=== PATIENT | male | born 1990 | race African-American/Black ===

== ENCOUNTER 2019-03-08 09:16 | Inpatient (IN) | payer OTHER ==
[2019-03-08] MEDS ORDERED: NACL 0.9% 1000 ML 1,000 ML IV ONE ×4 (12:18→23:10)
[2019-03-08] MEDS ORDERED: PEPCID IV ONE (12:18)
[2019-03-08] MEDS ORDERED: ZOFRAN IV ONE (12:18)
[2019-03-08] MEDS ORDERED: PROTONIX IV ONE (12:25)
[2019-03-08] MEDS ORDERED: VITAMIN B-1 100 MG, FOLVITE 1 MG, INFUVITE 10 ML in NACL 0.9% 1000 ML 1,000 ML IV ONE (12:26)
[2019-03-08] MEDS ORDERED: MAGNESIUM SULFATE 2GM/50ML 2 GM/50 ML BAG IV ONE (12:27)
--- NOTE | 2019-03-08 12:39 | Emergency Department Report ---
HPI - General Chief Complaint: Alcohol Time Seen by Provider: 03/08/19 12:17 - HPI HPI: Room 5 The patient is a 28-year-old male presenting with chief complaint of hematemesis. Patient has history of alcoholism and states he drinks approximately 3 points daily. The patient states he last consumed last night. Patient developed hematemesis this morning dark-colored blood. Patient also admits to melena for several months. Patient states he feels "woozy." Location: [See above] Duration: [See above] Quality: [See above] Severity: [See above] Timing: [See above] Context: [See above] Modifying factors: [See above] Associated signs and symptoms: [see above] ED Past Medical Hx - Past Medical History Previous Medical History?: No - Surgical History Past Surgical History?: No - Family History Family history: no significant - Social History Smoking Status: Current Every Day Smoker (1/2 pack per day) Substance Use Type: None (denies illicit drug use), Alcohol (3 pints daily) ED Review of Systems ROS: Stated complaint: VOMIT BLOOD/WEAK/FATIGUE Other details as noted in HPI Constitutional: no symptoms reported Eyes: denies: eye pain ENT: denies: throat pain Respiratory: no symptoms reported Cardiovascular: denies: chest pain Endocrine: no symptoms reported Gastrointestinal: nausea, vomiting, hematemesis, melena Genitourinary: denies: dysuria Musculoskeletal: denies: back pain Neurological: denies: headache Physical Exam - Physical Exam Vital Signs: Vital Signs 03/08/19 03/08/19 09:43 12:03 Temperature 98.6 F Pulse Rate 116 H Respiratory 16 16 Rate Blood Pressure 117/64 O2 Sat by Pulse 100 Oximetry Physical Exam: GENERAL: The patient is well-developed well-nourished male lying on stretcher appearing to be in mild discomfort. [] HEENT: Normocephalic. Atraumatic. Extraocular motions are intact. Patient has moist mucous membranes. NECK: Supple. Trachea midline CHEST/LUNGS: Clear to auscultation. There is no respiratory distress noted. HEART/CARDIOVASCULAR: Regular. There is no tachycardia. There is no gallop rub or murmur. ABDOMEN: Abdomen is soft, nontender. Patient has normal bowel sounds. There is no abdominal distention. SKIN: There is no rash. There is no edema. There is no diaphoresis. NEURO: The patient is awake, alert, and oriented. The patient is cooperative. The patient has normal speech MUSCULOSKELETAL: There is no evidence of acute injury. ED Course Vital Signs 03/08/19 03/08/19 09:43 12:03 Temperature 98.6 F Pulse Rate 116 H Respiratory 16 16 Rate Blood Pressure 117/64 O2 Sat by Pulse 100 Oximetry - Consultations Consultation #1: 03/08/19 13:[address] Tadeo S[place] ED Medical Decision Making - Lab Data Result diagrams: 03/08/19 12:59 03/08/19 13:14 Laboratory Tests 03/08/19 03/08/19 03/08/19 09:34 12:57 12:59 WBC 6.1 RBC 3.14 L Hgb 11.3 L Hct 33.3 L MCV 106 H MCH 36 H MCHC 34 RDW 18.5 H Plt Count 61 L PT 16.9 H INR 1.41 H APTT 30.9 Sodium Potassium Chloride Carbon Dioxide Anion Gap BUN Creatinine Estimated GFR BUN/Creatinine Ratio Glucose Calcium Total Bilirubin AST ALT Alkaline Phosphatase Total Protein Albumin Albumin/Globulin Ratio Plasma/Serum Alcohol 0.34 H Blood Type Antibody Screen 03/08/19 03/08/19 13:12 13:14 WBC RBC Hgb Hct MCV MCH MCHC RDW Plt Count PT INR APTT Sodium 139 Potassium 4.4 Chloride 89.4 L Carbon Dioxide 8 L* Anion Gap 46 BUN 13 Creatinine 1.2 Estimated GFR > 60 BUN/Creatinine Ratio 11 Glucose 74 L Calcium 8.7 Total Bilirubin 4.70 H AST 611 H ALT 153 H Alkaline Phosphatase 82 Total Protein 7.6 Albumin 3.9 Albumin/Globulin Ratio 1.1 Plasma/Serum Alcohol Blood Type AB POSITIVE Antibody Screen Negative - Differential Diagnosis upper GI bleed, alcoholic ketoacidosis Critical care attestation.: If time is entered above; I have spent that time in minutes in the direct care of this critically ill patient, excluding procedure time. ED Disposition Clinical Impression: Upper GI bleed, Alcoholism Disposition: OP ADMIT IP TO THIS HOSP Is pt being admited?: Yes Does the pt Need Aspirin: No Condition: Fair Time of Disposition: 14:13 (hospitalist paged (Dr Kearns))
[2019-03-08 13:23] LABS: Hematocrit 33.3 % (35.5-45.6); Hemoglobin 11.3 gm/dl (11.8-15.2); Mean Corpuscular HGB Conc 34 % (32-34); Mean Corpuscular Volume 106 fl (84-94); Red Blood Count 3.14 M/mm3 (3.65-5.03); Red Cell Distribution Width 18.5 % (13.2-15.2)
[2019-03-08 13:24] LABS: INR 1.41 (0.87-1.13); Partial Thromboplastin Time 30.9 Sec. (24.2-36.6)
[2019-03-08 13:44] LABS: Albumin 3.9 g/dL (3.9-5); BUN/Creatinine Ratio 11; Blood Urea Nitrogen 13 mg/dL (9-20); Calcium 8.7 mg/dL (8.4-10.2); Hemolysis Index 107
[2019-03-08 13:48] LABS: Alanine Aminotransferase 153 units/L (7-56)
[2019-03-08] MEDS: PROTONIX 80 MG in NACL 0.9% 100 ML IV SCH ×2 (13:49→14:30)
[2019-03-08 13:56] LABS: Platelet Count 61 K/mm3 (140-440)
[2019-03-08 14:11] LABS: Basophils % (Manual) 0 % (0.0-1.8); Eosinophils % (Manual) 0 % (0.0-4.3); Platelet Estimate Appears Decreased; Total Cells Counted 100
[2019-03-08 14:12] LABS: Anisocytosis 2+
[2019-03-08] MEDS ORDERED: ROCEPHIN/NS 1 GM/50 ML 1 GM/50 ML BAG IV ONE ×2 (14:36→15:30)
[2019-03-08 14:37] LABS: Bilirubin,Urine SM (Negative); Blood,Urine SM (Negative); Color,Urine Amber (Yellow); Hyaline Casts,Urine 25 /LPF; Mucus,Urine 3+ /HPF
[2019-03-08 14:40] LABS: Protein,Urine >500 mg/dL (Negative)
[2019-03-08 14:41] LABS: Ictotest,Urine Positive (Negative)
[2019-03-08] MEDS ORDERED: SODIUM CHLORIDE FLUSH SYRINGE 10 ML IV PRN (14:56)
[2019-03-08] MEDS ORDERED: PROVENTIL IH PRN (14:56)
--- NOTE | 2019-03-08 14:58 | History and Physical Report ---
History of Present Illness Chief complaint: Im coughing up blood History of present illness: 28 YO Male with Nicotine Dependence, ETOH Dependence, Cirrhosis presents to ED for evaluation. Pt states that he has experienced multiple episodes of coughing up blood over the past 1 day. Pt also acknowledges dark colored stool and feeling weak and "woozy. Pt transported to [facility] via private vehicle. Pt seen and evaluated in ED and found to have UGI bleed, ETOH Dependence with Intoxication, Acidosis, and Cirrhosis. Pt admitted to [facility] and initiated on Octreotide drip and PPI therapy. GI consulted in ED. Pt denies fever, chills, CP, Palpitations, Trauma, Syncope, ingestion of food/water from new or different sources. No prior admission for review. No medication listed at time of admission for reconciliation. Past History Past Medical History: other (Cirrhosis) Past Surgical History: Other (cirrhosis) Social history: smoking, alcohol abuse Family history: no significant family history (Unable to obtain) Medications and Allergies Allergies Allergy/AdvReac Type Severity Reaction Status Date / Time No Known Allergies Allergy Verified 03/08/19 12:31 Active Meds: Active Medications Albuterol (Proventil) 2.5 mg IH Q3HRT PRN PRN Reason: Shortness Of Breath Thiamine HCl 100 mg/ Folic Acid 1 mg/ Multivitamins/Minerals 10 ml/ Sodium Chloride 1,011.2 mls @ 250 mls/hr IV ONCE ONE Stop: 03/08/19 16:28 Last Admin: 03/08/19 13:07 Dose: 250 mls/hr Documented by: Pantoprazole Sodium 80 mg/ (Sodium Chloride) 100 mls @ 10 mls/hr IV DIRECT CHARLIE Last Admin: 03/08/19 14:30 Dose: 8 mg/hr, 10 mls/hr Documented by: Dextrose/Sodium Chloride (D5ns) 1,000 mls @ 150 mls/hr IV DIRECT CHARLIE Octreotide Acetate 500 mcg/ (Sodium Chloride) 101 mls @ 10.1 mls/hr IV TITR ONE; Protocol Stop: 03/09/19 00:59 Ceftriaxone Sodium (Rocephin/Ns 1 Gm/50 Ml) 1 gm in 50 mls @ 100 mls/hr IV ONCE ONE; Protocol Stop: 03/08/19 15:05 Octreotide Acetate (Sandostatin) 50 mcg IV ONCE ONE Stop: 03/08/19 15:01 Sodium Chloride (Sodium Chloride Flush Syringe 10 Ml) 10 ml IV BID CHARLIE Sodium Chloride (Sodium Chloride Flush Syringe 10 Ml) 10 ml IV PRN PRN PRN Reason: LINE FLUSH Review of Systems Constitutional: no weight loss, no weight gain, no fever, no chills Ears, nose, mouth and throat: no ear pain, no ear discharge, no decreased hearing, no nose pain, no nasal congestion Cardiovascular: no chest pain, no orthopnea, no palpitations, no rapid/irregular heart beat, no edema, no syncope Respiratory: no cough, no cough with sputum, no excessive sputum Gastrointestinal: hematemesis, BRBPR, melena, no abdominal pain, no nausea, no vomiting, no diarrhea, no constipation, no early satiety Genitourinary Male: no hematuria, no flank pain, no discharge, no urinary frequency, no urinary hesitancy Rectal: no pain, no incontinence, no bleeding Musculoskeletal: no neck stiffness, no neck pain, no shooting arm pain, no arm numbness/tingling, no low back pain, no shooting leg pain Integumentary: no rash, no pruritis, no redness, no sores, no wounds Neurological: no transient paralysis, no paralysis, no weakness, no parathesias, no numbness, no tingling, no syncope Psychiatric: no anxiety, no memory loss, no change in sleep habits, no sleep disturbances, no suicidal ideation, no disorientation Endocrine: no cold intolerance, no heat intolerance, no polyphagia, no excessive thirst, no polydipsia, no nocturia, no excessive sweating Hematologic/Lymphatic: no easy bruising, no easy bleeding, no lymphadenopathy, no lymphedema Allergic/Immunologic: no urticaria, no allergic rhinitis, no wheezing, no persistent infections, no anaphylaxis Exam - Constitutional Vitals: Temp Pulse Resp BP Pulse Ox 98.6 F 119 H 23 104/56 100 03/08/19 09:43 03/08/19 13:08 03/08/19 13:08 03/08/19 13:08 03/08/19 13:08 General appearance: Present: mild distress, disheveled, malodorous - EENT Eyes: Present: PERRL, EOM intact, scleral icterus ENT: hearing intact, clear oral mucosa - Neck Neck: Present: supple, normal ROM, masses or JVD - Respiratory Respiratory effort: normal Respiratory: bilateral: CTA - Cardiovascular Heart Sounds: Present: S1 & S2. Absent: rub, click - Extremities Extremities: pulses symmetrical, No edema Peripheral Pulses: within normal limits - Abdominal General gastrointestinal: Present: soft, non-tender, non-distended, normal bowel sounds Male genitourinary: Present: normal - Integumentary Integumentary: Present: clear, warm, dry - Musculoskeletal Musculoskeletal: gait normal, strength equal bilaterally - Psychiatric Psychiatric: appropriate mood/affect, intact judgment & insight - Neurologic Neurologic: CNII-XII intact, moves all extremities Results - Labs CBC & Chem 7: 03/08/19 12:59 03/08/19 13:14 Labs: Abnormal lab results 03/08/19 03/08/19 03/08/19 Range/Units 09:34 12:57 12:59 RBC 3.14 L (3.65-5.03) M/mm3 Hgb 11.3 L (11.8-15.2) gm/dl Hct 33.3 L (35.5-45.6) % MCV 106 H (84-94) fl MCH 36 H (28-32) pg RDW 18.5 H (13.2-15.2) % Plt Count 61 L (140-440) K/mm3 Lymphocytes % (Manual) 50.0 H (13.4-35.0) % PT 16.9 H (12.2-14.9) Sec. INR 1.41 H (0.87-1.13) Chloride (98-107) mmol/L Carbon Dioxide (22-30) mmol/L Glucose (75-100) mg/dL Total Bilirubin (0.1-1.2) mg/dL AST (5-40) units/L ALT (7-56) units/L Urine WBC (Auto) (0.0-6.0) /HPF Plasma/Serum Alcohol 0.34 H (0-0.07) % 03/08/19 03/08/19 Range/Units 13:14 14:21 RBC (3.65-5.03) M/mm3 Hgb (11.8-15.2) gm/dl Hct (35.5-45.6) % MCV (84-94) fl MCH (28-32) pg RDW (13.2-15.2) % Plt Count (140-440) K/mm3 Lymphocytes % (Manual) (13.4-35.0) % PT (12.2-14.9) Sec. INR (0.87-1.13) Chloride 89.4 L (98-107) mmol/L Carbon Dioxide 8 L* (22-30) mmol/L Glucose 74 L (75-100) mg/dL Total Bilirubin 4.70 H (0.1-1.2) mg/dL AST 611 H (5-40) units/L ALT 153 H (7-56) units/L Urine WBC (Auto) 18.0 H (0.0-6.0) /HPF Plasma/Serum Alcohol (0-0.07) % Assessment and Plan - Patient Problems (1) Upper GI bleed Current Visit: Yes Status: Acute Plan to address problem: Admit to IMCU, PPI therapy, Octreotide drip, serial CBC, Pending Endoscopy as per GI team. Notify GI if Hgb drops by more that 1.5 grams. (2) EtOH dependence Current Visit: Yes Status: Acute Qualifiers: Substance use status: with intoxication Plan to address problem: CIWA protocol, Banana bag, supportive care. (3) Cirrhosis Current Visit: Yes Status: Acute Qualifiers: Hepatic cirrhosis type: alcoholic cirrhosis Plan to address problem: GI consulted, supportive care, (4) Acidosis Current Visit: Yes Status: Acute Plan to address problem: IV bicarbonate therapy, supportive care. (5) Nicotine dependence unspecified, with withdrawal Current Visit: Yes Status: Acute Qualifiers: Nicotine product type: cigarettes Qualified Code(s): F17.213 - Nicotine dependence, cigarettes, with withdrawal Plan to address problem: Smoking cessation counseling, supportive care. +15min (6) Behavioral change Current Visit: Yes Status: Acute Plan to address problem: ETOH cessation, +15min, Outpatient F/U with AA at discharge. (7) DVT prophylaxis Current Visit: Yes Status: Acute Plan to address problem: SCD to BLE while in bed, hold anticoagulation due to liver dysfunction
[2019-03-08] MEDS ORDERED: D5NS 1,000 ML IV SCH (15:00)
[2019-03-08] MEDS ORDERED: SandoSTATIN 500 MCG in NACL 0.9% 100 ML IV ONE (15:00)
--- NOTE | 2019-03-08 16:21 | Ultrasound Report ---
Abdominal ultrasound limited INDICATION: Right upper quadrant pain. GI bleed. FINDINGS: The liver is enlarged and diffusely heterogeneous. The gallbladder contains several gallsto fam. The right kidney is unremarkable. Small free fluid noted. IMPRESSION: 1. Severely heterogeneous echogenicity of the liver which is suspicious for cirrhosis. 2. Cholelithiasis. Signer Name: Lui Medrano MD Signed: 03/08/2019 4:16 PM Workstation Name: [id number]
--- NOTE | 2019-03-08 17:42 | Gastroenterology Consultation ---
History of Present Illness - Reason for Consult Consult date: 03/08/19 gi bleed Requesting physician: JEANNINE KATE - History of Present Illness This is a 28 yo male with pmh of alcohol abuse presenting to the ED for an episode of hematemesis last night and melena intermittently x 1 week. He had another episode of hematemesis in the ED but no additional episode since then. He denies abdominal pain. He is drowsy and history is limited. Reports last drink with alcohol this morning and last night. He recently moved from [place] in January. He was admitted at a hospital in [place] in September last year and was told that he had liver disease. No follow up since then. He had a fall last night and had large bruising on his back. Medication list reviewed Past History Past Medical History: liver disease Past Surgical History: No surgical history Social history: lives with family, alcohol abuse Medications and Allergies Allergies Allergy/AdvReac Type Severity Reaction Status Date / Time No Known Allergies Allergy Verified 03/08/19 12:31 Active Meds: Active Medications Albuterol (Proventil) 2.5 mg IH Q3HRT PRN PRN Reason: Shortness Of Breath Pantoprazole Sodium 80 mg/ (Sodium Chloride) 100 mls @ 10 mls/hr IV DIRECT CHARLIE Last Admin: 03/08/19 14:30 Dose: 8 mg/hr, 10 mls/hr Documented by: Dextrose/Sodium Chloride (D5ns) 1,000 mls @ 150 mls/hr IV DIRECT CHARLIE Octreotide Acetate 500 mcg/ (Sodium Chloride) 101 mls @ 10.1 mls/hr IV TITR ONE; Protocol Stop: 03/09/19 00:59 Thiamine HCl 100 mg/ Folic Acid 1 mg/ Multivitamins/Minerals 10 ml/ Sodium Chloride 1,011.2 mls @ 250 mls/hr IV ONCE ONE Stop: 03/09/19 04:03 Lorazepam (Ativan) 2 mg IV Q1HR PRN PRN Reason: CIWA-Ar 8-15 Sodium Chloride (Sodium Chloride Flush Syringe 10 Ml) 10 ml IV BID CHARLIE Sodium Chloride (Sodium Chloride Flush Syringe 10 Ml) 10 ml IV PRN PRN PRN Reason: LINE FLUSH Review of Systems - Review of Systems Constitutional: weight loss, no weight gain Cardiovascular: no chest pain Gastrointestinal: nausea, vomiting, hematemesis, melena, no abdominal pain, no BRBPR Hematologic/Lymphatic: easy bruising Exam - Constitutional Vital Signs: Temp Pulse Resp BP Pulse Ox 98.6 F 115 H 20 131/51 100 03/08/19 09:43 03/08/19 16:42 03/08/19 16:42 03/08/19 16:42 03/08/19 16:42 General appearance: no acute distress, disheveled - EENT Eyes: EOM intact ENT: hearing intact - Respiratory Respiratory effort: normal Respiratory: bilateral: CTA - Cardiovascular Rhythm: regular Heart Sounds: Present: S1 & S2 - Gastrointestinal General gastrointestinal: Present: soft, non-tender, non-distended - Integumentary Integumentary: Present: clear, warm - Neurologic Neurological: alert and oriented x3 - Labs CBC & Chem 7: 03/08/19 12:59 03/08/19 13:14 Lab Results: Laboratory Results - last 24 hr 03/08/19 03/08/19 03/08/19 09:34 12:57 12:59 WBC 6.1 RBC 3.14 L Hgb 11.3 L Hct 33.3 L MCV 106 H MCH 36 H MCHC 34 RDW 18.5 H Plt Count 61 L Add Manual Diff Complete Total Counted 100 Seg Neuts % (Manual) 46.0 Band Neutrophils % 0 Lymphocytes % (Manual) 50.0 H Reactive Lymphs % (Man) 0 Monocytes % (Manual) 4.0 Eosinophils % (Manual) 0 Basophils % (Manual) 0 Metamyelocytes % 0 Myelocytes % 0 Promyelocytes % 0 Blast Cells % 0 Nucleated RBC % Not Reportable Seg Neutrophils # Man 2.8 Band Neutrophils # 0.0 Lymphocytes # (Manual) 3.1 Abs React Lymphs (Man) 0.0 Monocytes # (Manual) 0.2 Eosinophils # (Manual) 0.0 Basophils # (Manual) 0.0 Metamyelocytes # 0.0 Myelocytes # 0.0 Promyelocytes # 0.0 Blast Cells # 0.0 WBC Morphology Not Reportable Hypersegmented Neuts Not Reportable Hyposegmented Neuts Not Reportable Hypogranular Neuts Not Reportable Smudge Cells Not Reportable Toxic Granulation Not Reportable Toxic Vacuolation Not Reportable Dohle Bodies Not Reportable Pelger-Huet Anomaly Not Reportable Meng Rods Not Reportable Platelet Estimate Appears decreased Clumped Platelets Not Reportable Plt Clumps, EDTA Not Reportable Large Platelets Not Reportable Giant Platelets Not Reportable Platelet Satelliting Not Reportable Plt Morphology Comment Not Reportable RBC Morphology Not Reportable Dimorphic RBCs Not Reportable Polychromasia Not Reportable Hypochromasia Not Reportable Poikilocytosis Not Reportable Anisocytosis 2+ Microcytosis Not Reportable Macrocytosis Not Reportable Spherocytes Not Reportable Pappenheimer Bodies Not Reportable Sickle Cells Not Reportable Target Cells Not Reportable Tear Drop Cells Not Reportable Ovalocytes Not Reportable Helmet Cells Not Reportable Zaman-Ransom Bodies Not Reportable Falcon Rings Not Reportable Lyman Cells Not Reportable Bite Cells Not Reportable Crenated Cell Not Reportable Elliptocytes Not Reportable Acanthocytes (Spur) Not Reportable Rouleaux Not Reportable Hemoglobin C Crystals Not Reportable Schistocytes Not Reportable Malaria parasites Not Reportable Santy Bodies Not Reportable Hem Pathologist Commnt No PT 16.9 H INR 1.41 H APTT 30.9 Sodium Potassium Chloride Carbon Dioxide Anion Gap BUN Creatinine Estimated GFR BUN/Creatinine Ratio Glucose Calcium Total Bilirubin AST ALT Alkaline Phosphatase Total Protein Albumin Albumin/Globulin Ratio Urine Color Urine Turbidity Urine pH Ur Specific Sandy Urine Protein Urine Glucose (UA) Urine Ketones Urine Blood Urine Nitrite Urine Bilirubin Urine Ictotest Urine Urobilinogen Ur Leukocyte Esterase Urine WBC (Auto) Urine RBC (Auto) U Epithel Cells (Auto) Urine WBC Clumps Hyaline Casts Urine Mucus Plasma/Serum Alcohol 0.34 H Blood Type Antibody Screen 03/08/19 03/08/19 03/08/19 13:12 13:14 14:21 WBC RBC Hgb Hct MCV MCH MCHC RDW Plt Count Add Manual Diff Total Counted Seg Neuts % (Manual) Band Neutrophils % Lymphocytes % (Manual) Reactive Lymphs % (Man) Monocytes % (Manual) Eosinophils % (Manual) Basophils % (Manual) Metamyelocytes % Myelocytes % Promyelocytes % Blast Cells % Nucleated RBC % Seg Neutrophils # Man Band Neutrophils # Lymphocytes # (Manual) Abs React Lymphs (Man) Monocytes # (Manual) Eosinophils # (Manual) Basophils # (Manual) Metamyelocytes # Myelocytes # Promyelocytes # Blast Cells # WBC Morphology Hypersegmented Neuts Hyposegmented Neuts Hypogranular Neuts Smudge Cells Toxic Granulation Toxic Vacuolation Dohle Bodies Pelger-Huet Anomaly Meng Rods Platelet Estimate Clumped Platelets Plt Clumps, EDTA Large Platelets Giant Platelets Platelet Satelliting Plt Morphology Comment RBC Morphology Dimorphic RBCs Polychromasia Hypochromasia Poikilocytosis Anisocytosis Microcytosis Macrocytosis Spherocytes Pappenheimer Bodies Sickle Cells Target Cells Tear Drop Cells Ovalocytes Helmet Cells Zaman-Ransom Bodies Falcon Rings Nancie Cells Bite Cells Crenated Cell Elliptocytes Acanthocytes (Spur) Rouleaux Hemoglobin C Crystals Schistocytes Malaria parasites Santy Bodies Hem Pathologist Commnt PT INR APTT Sodium 139 Potassium 4.4 Chloride 89.4 L Carbon Dioxide 8 L* Anion Gap 46 BUN 13 Creatinine 1.2 Estimated GFR > 60 BUN/Creatinine Ratio 11 Glucose 74 L Calcium 8.7 Total Bilirubin 4.70 H AST 611 H ALT 153 H Alkaline Phosphatase 82 Total Protein 7.6 Albumin 3.9 Albumin/Globulin Ratio 1.1 Urine Color Rosa Urine Turbidity Cloudy Urine pH 5.0 Ur Specific Sandy 1.015 Urine Protein >500 Urine Glucose (UA) 50 Urine Ketones 20 Urine Blood Sm Urine Nitrite Neg Urine Bilirubin Sm Urine Ictotest Positive Urine Urobilinogen 4.0 Ur Leukocyte Esterase Neg Urine WBC (Auto) 18.0 H Urine RBC (Auto) 2.0 U Epithel Cells (Auto) 4.0 Urine WBC Clumps Few Hyaline Casts 25 Urine Mucus 3+ Plasma/Serum Alcohol Blood Type AB POSITIVE Antibody Screen Negative Assessment and Plan # Cirrhosis # Alcohol abuse # Upper GI bleed - concerning for variceal bleed, portal hypertensive gastropathy, vs PUD/gastritis. - h/o cirrhosis. - low platelets. elevated INR at 1.4 Rec - start on PPI IV, octreotide IV - start empiric antibiotics with ceftriaxone - monitor H/H closely. - monitor for signs of active bleeding. in case of any signs of bleeding, melena or hematemesis, please call GI immediately. - CT a/p pending. - will plan for EGD tomorrow. - keep NPO. - hold blood transfusion unless Hgb less than 7. - DO not give aggressive IV fluid.
--- NOTE | 2019-03-08 18:12 | Cat Scan Report ---
CT ABDOMEN AND PELVIS WITH IV CONTRAST INDICATION: GI bleed, r/o retroperitoneal bleed, abd pain. COMPARISON: None available. TECHNIQUE: Axial CT images were obtained through the abdomen and pelvis after 100 mL IV contrast. All CT scans a t this location are performed using CT dose reduction for ALARA by means of automated exposure contro l. FINDINGS -- ABDOMEN: Lung Bases: No acute abnormality. Liver: Enlarged, severely fatty liver that is borderline cirrhotic.. Gallbladder: Normal. Bile Ducts: Normal. Pancreas: Normal. Spleen: Normal. Adrenals: Normal. Right Kidney and Proximal Ureter: Normal. Left Kidney and Proximal Ureter: Normal. Stomach and Bowel: Abnormal mucosal thickening throughout much of the small bowel and:. Lymph Nodes: No significant adenopathy. Aorta: No significant abnormality. IVC: Normal. Additional Findings: None. FINDINGS -- PELVIS: Urinary Bladder and Distal Ureters: Normal. Reproductive Organs: No acute abnormality. Appendix: Not well identified. Bowel: Extensive colonic mucosal thickening with and enteric thickeni ng. Free Fluid: None. Lymph Nodes: No significant adenopathy. Additional Findings: None. Skeletal System: No acute abnormality. IMPRESSION: 1. Severe multifocal enteritis with diffuse colitis, possibly infectious. 2. Enlarged, fatty liver that appears borderline cirrhotic. Signer Name: Lui Medrano MD Signed: 03/08/2019 6:08 PM Workstation Name: [id number]
[2019-03-08 21:23] LABS: Hematocrit 26.8 % (35.5-45.6); Mean Corpuscular HGB Conc 30 % (32-34); Red Blood Count 2.21 M/mm3 (3.65-5.03)
[2019-03-08 21:24] LABS: Albumin 3.7 g/dL (3.9-5)
[2019-03-08 21:25] LABS: Mean Corpuscular Volume 121 fl (84-94); Platelet Count 84 K/mm3 (140-440); Red Cell Distribution Width 20.5 % (13.2-15.2)
[2019-03-08] MEDS ORDERED: ZEMURON IV ONE (22:00)
[2019-03-08] MEDS ORDERED: D50W (25GM) Syringe IV ONE ×2 (22:00→22:28)
[2019-03-08] MEDS ORDERED: VERSED IV ONE (22:00)
[2019-03-08] MEDS ORDERED: AMIDATE IV ONE (22:00)
[2019-03-08] MEDS ORDERED: NACL 0.9% 1000 ML 1,000 ML ONE (22:14)
[2019-03-08] MEDS ORDERED: VANCOMYCIN/NS 1 GM/250 ML 1 GM/250 ML BAG IV ONE (22:25)
[2019-03-08] MEDS ORDERED: ZOSYN/NS 4.5GM/100ML 4.5 GM/100 ML VIAL IV ONE (22:26)
[2019-03-08] MEDS ORDERED: KIONEX PR ONE (22:27)
[2019-03-08] MEDS ORDERED: CALCIUM CHLORIDE IV ONE (22:27)
--- NOTE | 2019-03-08 22:27 | Event Note ---
called by GI, Dr Piedra to see the patient He is tachycardic,rate 200 which he came down to 120s spontanously labs show potassium of 7, bicarb of 3 give 60 of kayexalate, 3 amps bicarb, 2 amps calcium check sugar which was low, D50 given sepsis, start vanco and zosyn, flagyl, obtain blood cultures give fluid bolus then maintenance he will be intubated, lethargic repeat labs now, check serial hemoglobin hematochezia present, GI aware uprade t ICU, sedation with versed drip Addendum Repeat CT to r/o perforation onsult renal for dialysis, d/w Dr Prater Patient recieved 2 more amps of bicarb and calcium continue to monitor Hemoglobin dropped to 6.3, transfuse blood Patient recieve 5 mg iv lopressor, brought his HR fom 165 to 117 GI recommend
--- NOTE | 2019-03-08 22:35 | Event Note ---
Date: 03/08/19 Called by the nurse that the patient was tachycardic with HR in 130s and New labs came back. CBC with Hgb down to 8 and plt at 80s. CMP with bicarb down to 3, potassium up to 7. BUN and Cr stable. Called lab and they confirmed that potassium was correct and not hemolyzed. Came to evaluate patient. Patient appears lethargic and VS with HR in 140s, BP 90s/30s. Spoke with Dr. Low (telecommunications line mechanic hospitalist) and Dr. Oshea (ED attending). Patient given calcium, insulin, dextrose, and kayexalate as well as bolus of IVF. Patient planned for intubated. Additional labs ordered. - patient to be admitted to ICU instead. - will plan for EGD once patient intubated and stabilized. - zosyn and flagyl ordered. - will update family.
[2019-03-08] MEDS ORDERED: ZOSYN/NS 4.5GM/100ML 4.5 GM/100 ML VIAL IV SCH (22:45)
[2019-03-08] MEDS ORDERED: VASELINE LIP THERAPY TP PRN (22:51)
[2019-03-08] MEDS ORDERED: ARTIFICIAL TEARS OPHTH OINT OU PRN (22:51)
[2019-03-08] MEDS ORDERED: VANCOMYCIN 1,500 MG in NACL 0.9% 500 ML 500 ML IV ONE (23:00)
[2019-03-08] MEDS ORDERED: NACL 0.9% 1000 ML 1,000 ML IV SCH (23:00)
[2019-03-08 23:03] LABS: Basophils % (Manual) 0 % (0.0-1.8); Eosinophils % (Manual) 0 % (0.0-4.3); Total Cells Counted 100
[2019-03-08 23:04] LABS: Large Platelets 1+; Macrocytosis 1+; Platelet Estimate Consistent w Auto
[2019-03-08] MEDS: SODIUM CHLORIDE FLUSH SYRINGE 10 ML IV SCH (23:20)
[2019-03-08 23:31] LABS: Calcium 8.7 mg/dL (8.4-10.2)
--- NOTE | 2019-03-08 23:33 | XRay Report ---
CHEST 1 VIEW 03/08/2019 11:12 PM INDICATION / CLINICAL INFORMATION: ETT placement, central line placement. COMPARISON: None available. FINDINGS: SUPPORT DEVICES: ET tube has tip 6 cm above gypsy. Right internal jugular central venous line projec ts over SVC. HEART / MEDIASTINUM: No significant abnormality. LUNGS / PLEURA: No significant pulmonary or pleural abnormality. No pneumothorax. ADDITIONAL FINDINGS: No significant additional findings. IMPRESSION: 1. No acute findings. Signer Name: Michael Soto MD Signed: 03/08/2019 11:28 PM Workstation Name: [id number]
[2019-03-09] MEDS ORDERED: VITAMIN B-1 100 MG, FOLVITE 1 MG, INFUVITE 10 ML in NACL 0.9% 1000 ML 1,000 ML IV ONE (00:01)
[2019-03-09] MEDS ORDERED: LEVOPHED DRIP 4 MG/NS 250 ML 4 MG/250 ML BAG IV ONE ×2 (00:19→03:09)
[2019-03-09 00:28] LABS: Calcium 8.2 mg/dL (8.4-10.2)
[2019-03-09] MEDS ORDERED: CALCIUM GLUCONATE 1,000 MG in NACL 0.9% 100 ML IV ONE ×2 (00:35→00:43)
[2019-03-09] MEDS ORDERED: D50W (25GM) Syringe IV ONE (00:57)
[2019-03-09] MEDS ORDERED: HumuLIN R IV ONE ×2 (00:57→03:50)
[2019-03-09 01:00] LABS: Hemoglobin 6.3 gm/dl (11.8-15.2); Mean Corpuscular HGB Conc 31 % (32-34); Red Blood Count 1.72 M/mm3 (3.65-5.03)
[2019-03-09] MEDS ORDERED: SODIUM BICARBONATE 150 MEQ in D5W 1,000 ML IV SCH (01:00)
[2019-03-09] MEDS ORDERED: LOPRESSOR IV ONE ×2 (01:16→03:50)
[2019-03-09] MEDS ORDERED: CALCIUM CHLORIDE IV ONE ×2 (01:17→02:09)
--- NOTE | 2019-03-09 01:18 | Event Note ---
28 YEAR OLD WITH HISTORY OF ALCOHOL ABUSE ADMITTED WITH CONCERN FOR GI BLEED , WITH TACHYCARDIA . PATIENT ADMITTED EARLY TODAY , LABS FROM 8 PM SHOW HYPERKALEMIA NEHPROLOGY PAGED AT 12:10 AM FOR K OF 7.9 BY SENIOR ORACLE DATABASE DEVELOPER HOSPITALIST DR. HUANG , i DISCUSSED POSSIBLE NEED FOR DIALYSIS REVIEW SHOWS PATIENT WITH SEVERE LACTIC ACIDOSIS, VITALS PATIENT TACHYCARdic to 150 with lactate of 23!!!! RECEIVED KAYEXALATE, 1 DOSE OF CALCIUM GLUCONATE AND BICARB by primary team REPEAT LABS OBTAINED SHOW K HAS IMPROVED TO 6.3 FROM 7.9 WHICH IS A SIGNFICANT DECLINE WILL HOLD OFF HD FOR NOW Hyperkalemia is improving with medical managment OBTAIN REPEAT EKG WILL START INSULIN WITH 10% DEXTROSE INFUSION @75CC /HR , ORDERS DISCUSSED WITH ICU NURSE IN DETAIL CHECK FINGERSTICK [id number] FIRST HOUR AND THEN Q1HR WILL GIVE 2 AMPS OF CALCIUM GLUCONATE WILL GIVE ALBUTEROL 20MG NEBULIZER received 150meq bicarb start bicarb infusion repeat Bmp at 3am please call with bmp results at 3am.
[2019-03-09 01:19] LABS: Mean Corpuscular Volume 117 fl (84-94); Platelet Count 62 K/mm3 (140-440); Red Cell Distribution Width 20.9 % (13.2-15.2)
--- NOTE | 2019-03-09 01:25 | Cat Scan Report ---
CT CHEST WITHOUT CONTRAST INDICATION / CLINICAL INFORMATION: MAIN: gib, perforation. AMS.. TECHNIQUE: Axial CT images were obtained through the chest without contrast. All CT scans at this location are p erformed using CT dose reduction for ALARA by means of automated exposure control. COMPARISON: None available. FINDINGS: HEART: Mild cardiomegaly. THORACIC AORTA: No significant abnormality. MEDIASTINUM and JUAN JOSE: No significant abnormality. LUNGS: Mild dependent left basilar atelectasis. PLEURA: No significant pleural effusion. No pneumothorax. ADDITIONAL FINDINGS: Right internal jugular central line has tip in SVC. ET tube has tip 5 cm above c troy. UPPER ABDOMEN: Small hiatal hernia. Abdominal CT will be reported separately. SKELETAL SYSTEM: No significant abnormality. IMPRESSION: 1. Cardiomegaly without CHF. 2. Small hiatal hernia. Signer Name: Michael Soto MD Signed: 03/09/2019 1:21 AM Workstation Name: [id number]
[2019-03-09] MEDS: PROTONIX 80 MG in NACL 0.9% 100 ML IV SCH ×3 (01:28→23:10)
[2019-03-09] MEDS: REGLAN IV PRN ×2 (01:30→12:13)
[2019-03-09] MEDS ORDERED: PROVENTIL IH ONE (01:30)
--- NOTE | 2019-03-09 01:33 | Cat Scan Report ---
CT ABDOMEN AND PELVIS WITHOUT CONTRAST INDICATION: MAIN: gib, perforation. AMS.. TECHNIQUE: Axial CT images were obtained through the abdomen and pelvis without IV contrast. All CT scans at [facility] location are performed using CT dose reduction for ALARA by means of automated exposure control. COMPARISON: CT abdomen pelvis with contrast 03/08/2019 FINDINGS: LOWER CHEST: No significant abnormality. LIVER: The liver is markedly enlarged measuring 23.5 cm in length with marked diffuse hypoattenuation characteristic for steatosis. GALLBLADDER: Several tiny gallstones with suspected gallbladder wall thickening. BILE DUCTS: No significant abnormality. PANCREAS: Mildly enlarged edematous pancreas characteristic for acute pancreatitis with mild peripanc reatic edema. SPLEEN: No significant abnormality. ADRENALS: No significant abnormality. RIGHT KIDNEY and URETER: No significant abnormality. LEFT KIDNEY and URETER: No significant abnormality. STOMACH and SMALL BOWEL: Marked bowel wall thickening of proximal to mid small bowel characteristic f or enteritis, unchanged. No bowel obstruction. COLON: Mild diffuse bowel wall thickening of rectum and colon, slightly improved characteristic for r esolving colitis. APPENDIX: Normal PERITONEUM: Small amount of free pelvic fluid, new since prior study. No free air. No fluid collectio n. LYMPH NODES: No significant adenopathy. AORTA and ARTERIES: No significant abnormality. IVC and VEINS: No significant abnormality. URINARY BLADDER: No significant abnormality. REPRODUCTIVE ORGANS: No significant abnormality. Stool in diaper. ADDITIONAL FINDINGS: None. SKELETAL SYSTEM: Mild discogenic degenerative disease L5-S1 with chronic bilateral L5 spondylolysis a gain noted. IMPRESSION: 1. Probable new onset acute pancreatitis with pancreatic edema and peripancreatic fluid. 2. Cholelithiasis with edematous gallbladder wall suggestive for possible cholecystitis. This may be confirmed with ultrasound and/or HIDA scan. 3. Extensive hepatomegaly and steatosis, unchanged. 4. Moderate enteritis of proximal and mid small bowel has worsened since prior exam. 5. Mild pancolitis has slightly improved. Signer Name: Michael Soto MD Signed: 03/09/2019 1:28 AM Workstation Name: [id number]
[2019-03-09] MEDS ORDERED: D50W (25GM) Syringe IV PRN (01:34)
[2019-03-09] MEDS ORDERED: NACL 0.9% 500 ML 500 ML IV ONE ×4 (01:35→16:36)
[2019-03-09] MEDS: MIDAZOLAM 100 MG in NACL 0.9% 80 ML IV SCH ×2 (01:40→18:03)
[2019-03-09] MEDS ORDERED: ZOSYN/NS 2.25 GM/50ML 2.25 GM/50 ML BAG IV SCH (02:00)
[2019-03-09] MEDS ORDERED: NACL 0.9% 1000 ML 1,000 ML ONE (02:03)
[2019-03-09] MEDS ORDERED: KIONEX ONE (02:05)
--- NOTE | 2019-03-09 02:09 | Anesthesia Consultation ---
Anesthesia Consult and Med Hx Date of service: 03/09/19 - Airway Intubation Access Assessment: Probably Good (8.0 oETT in situ placed by ED staff.) - Pulmonary Exam CTA: Yes - Cardiac Exam Cardiac Exam: RRR (tachycardic) - Pre-Operative Health Status ASA Pre-Surgery Classification: ASA4, Emergency Proposed Anesthetic Plan: MAC - Pulmonary Hx Smoking: Yes Hx Respiratory Symptoms: No - Cardiovascular System Hx Hypertension: No Hx Heart Attack/AMI: No - Central Nervous System CVA: No Hx Psychiatric Problems: Yes (depression) - Endocrine Hx Renal Disease: Yes (ADRIANNE) Hx Cirrhosis: Yes Hx Liver Disease: Yes (worsening transaminitis) - Hematic Hx Anemia: Yes (2/2 presumed GI bleed) - Other Systems Hx Alcohol Use: Yes (3 pints vodka daily) - Additional Comments Anesthesia Medical History Comments: PMH EtOH abuse, cirrhosis, ?previous GI bleed presenting with dizziness and hematemesis. Admission labs notable for acidosis and CELIA 0.34%. While in ED, patient experienced acute decompensation with hypotension, tachycardia, and worsening mental status. Patient now admitted to ICU, intubated, sedated with versed gtt, tachycardic and normotensive (no pressors). Repeat labs notable for severe hyperkalemia which has improved with medical management though is still elevated, lactic acidosis with lacte 23 now on bicarb gtt, and drop in Hb to 6.3 (11 on admission). Imaging significant for pancreatitis and possible colitis. Now scheduled for EGD to evaluate for UGIB.
--- NOTE | 2019-03-09 02:11 | Anesthesia Day of Surgery ---
Anesthesia Day of Surgery - Day of Surgery Patient Examined: Yes Patient H&P Reviewed: Yes Patient is NPO: Yes
[2019-03-09] MEDS ORDERED: SUBLIMAZE ONE (02:24)
[2019-03-09] MEDS ORDERED: DIPRIVAN 10 MG/ML IV ONE (02:24)
[2019-03-09] MEDS ORDERED: WATER FOR IRRIG STERILE IR ONE (02:29)
[2019-03-09] MEDS ORDERED: NACL 0.9% 1000 ML 1,000 ML IV SCH (03:00)
[2019-03-09 03:48] LABS: Calcium 10.5 mg/dL (8.4-10.2)
--- NOTE | 2019-03-09 04:01 | Post Anesthesia Evaluation ---
- Post Anesthesia Evaluation Patient Participated: No (sedated) Airway Patent: Yes Stable Respiratory Function: Yes Nausea/Vomiting: No (unable to assess; none apparent) Temp > 96.8F: Yes Pain Manageable: Yes Adequeate Hydration: Yes Anesthesia Complications: No Block Receding Appropriately: Not Applicable Patient on Ventilator: Yes (vent settings unchanged from pre-procedure) Other Comments: Report given to MUSHROOM PICKER at bedside. VS near pre-procedure baseline (now on low dose levophed ordered by ICU MD).
[2019-03-09 04:03] LABS: Basophils % (Manual) 0 % (0.0-1.8); Eosinophils % (Manual) 0 % (0.0-4.3); Monocytes % (Manual) 0 % (0.0-7.3); Total Cells Counted 100
[2019-03-09 04:05] LABS: Anisocytosis 1+; Macrocytosis Few; Platelet Estimate Consistent w Auto
--- NOTE | 2019-03-09 04:07 | Operative Report ---
Operative Report Operative Report: Esophagogastroduodenoscopy Procedure Note Date of procedure: 03/09/2019 Endoscopist: Bebo Piedra Pre-op diagnosis: Upper GI bleeding, melena, hematemesis Post-op diagnosis: esophageal varices Anesthesia: MAC Complications: No immediate complications Procedure: After consent was obtained, the patient was placed in the left lateral decubitus position. The olympus endoscope was inserted into the patient's mouth under direct vision, and advanced into the 2nd portion of the duodenum without difficulty. The patient tolerated the procedure well. The views of the mucosa were good. Patient's vital signs were monitored continuously throughout the procedure. Findings: The esophagus revealed blood throughout the mid and distal esophagus. After all the blood and blood clots were irrigated and suctioned out, exam revealed 3-4 columns of large mid and distal esophageal varices. Variceal banding ligation performed using a 7-shooter and a total of 5 bands were placed successfully. A pool of blood was found in the fundus and cardia and could not clear out the blood completely and visualization of the cardia and fundus on retroflexion view was limited. No obvious signs of gastric varices in the antrum found. The examined portion of the duodenum appeared normal without any signs of active bleeding. No other obvious source of bleeding noted in the stomach and the duodenum. Impression: 1. A pool of blood in the fundus and cardia, not completely cleared out. 2. Blood in the distal esophagus. 3. 3-4 columns of large varices in the mid and distal esophagus. Variceal banding ligation performed with 5 bands placed successfully. 4. No obvious signs of gastric varices noted. 5. No other obvious source of bleeding noted in the stomach or the examined portion of the duodenum. Recommendations: 1. Keep NPO 2. Continue with resuscitation and supportive care for sepsis and metabolic acidosis. 3. Continue with PPI IV (can switch to bid dosing) and octreotide drip x 76 hr. 4. Monitor CBC, INR serially with Hgb goal >7, Plt >50K and INR <1.5 5. Monitor for signs of active recurrent bleeding. 6. Low threshold to transfer to a tertiary center in case of recurrent bleeding. 7. Updated family over the phone.
[2019-03-09] MEDS: LEVOPHED DRIP 4 MG/NS 250 ML 4 MG/250 ML BAG IV SCH ×4 (04:58→11:15)
[2019-03-09] MEDS: FLAGYL 500 MG/100 ML 500 MG/100 ML BAG IV SCH ×2 (05:33)
[2019-03-09] MEDS: Vasostrict 20 UNIT in NACL 0.9% 100 ML IV SCH ×2 (05:40→16:20)
[2019-03-09 06:18] LABS: Iron 208 ug/dL (49-181); Total Iron Binding Capacity 185 mcg/dL (250-450)
[2019-03-09 08:11] LABS: Basophils % (Auto) 0.3 % (0.0-1.8); Eosinophils % (Auto) 0.1 % (0.0-4.3); Lymphocytes # (Auto) 1.2 K/mm3 (1.2-5.4); Lymphocytes % (Auto) 15.7 % (13.4-35.0); Mean Corpuscular HGB Conc 33 % (32-34); Monocytes # (Auto) 0.4 K/mm3 (0.0-0.8); Monocytes % (Auto) 4.8 % (0.0-7.3); Red Blood Count 1.06 M/mm3 (3.65-5.03)
[2019-03-09 08:28] LABS: Hematocrit 11.7 % (35.5-45.6); Hemoglobin 3.9 gm/dl (11.8-15.2); Mean Corpuscular Volume 111 fl (84-94); Platelet Count 52 K/mm3 (140-440)
[2019-03-09 08:28] LABS: Calcium 8.9 mg/dL (8.4-10.2)
[2019-03-09] MEDS: NEO-SYNEPHRINE 100 MG in NACL 0.9% 90 ML IV SCH (08:45)
--- NOTE | 2019-03-09 08:53 | Consultation ---
History of Present Illness Consult date: 03/09/19 Reason for consult: other (Heorrhangic shock, acute GIB, acute hypoxemic respiratory failure) History of present illness: Unable to obtain history, as patient was intubated and unresonsive. 28 year old man aditted thrrought the ED with acute GI bleeding, with syptomatic anemia. s/p EGD ad was found to hve 3-4 columns of large mid and distal esophageal varices. Variceal banding ligation performed. A pool of blood was found in the fundus and cardia and could not clear out the blood completely and visualization of the cardia and fundus on retroflexion view was limited. No obvious signs of gastric varices in the antrum found. He was admitted to the ICU, orally intubated. When I saw him this morning, his Hgb was 3, he is on3 vasopressors, and blood is being cross-matched. He has RIJ CVC catheter, is orally intubated with patient ventilator dyssynchrony. I have ordered octreotide infusion, 2 units of O negative blood, 2 units of plat elets to be given NOW. One dose of IV albumin was also given. I have also ordered hoffman catheter beth lcement. DIC plan ordered Past History Past Medical History: other (Cirrhosis) Past Surgical History: Other (cirrhosis) Social history: smoking, alcohol abuse Family history: no significant family history (Unable to obtain) Medications and Allergies Allergies Allergy/AdvReac Type Severity Reaction Status Date / Time No Known Allergies Allergy Verified 03/08/19 12:31 Active Meds: Active Medications Albuterol (Proventil) 2.5 mg IH Q3HRT PRN PRN Reason: Shortness Of Breath Dextrose (D50w (25gm) Syringe) 50 ml IV PRN PRN PRN Reason: Hypoglycemia Hydrophilic Ointment (Vaseline Lip Therapy) 1 applic TP Q2HR PRN PRN Reason: Dry Lips Pantoprazole Sodium 80 mg/ (Sodium Chloride) 100 mls @ 10 mls/hr IV DIRECT CHARLIE Last Admin: 03/09/19 01:28 Dose: 8 mg/hr, 10 mls/hr Documented by: Metronidazole (Flagyl 500 Mg/100 Ml) 500 mg in 100 mls @ 100 mls/hr IV Q8HR CHARLIE; Protocol Last Admin: 03/09/19 05:33 Dose: 100 mls/hr Documented by: Midazolam HCl 100 mg/ Sodium (Chloride) 100 mls @ 2 mls/hr IV TITR CHARLIE; Protocol Last Titration: 03/09/19 05:42 Dose: 1 mg/hr, 1 mls/hr Documented by: Sodium Chloride (Nacl 0.9% 1000 Ml) 1,000 mls @ 50 mls/hr IV DIRECT CHARLIE Last Admin: 03/09/19 02:45 Dose: 50 mls/hr Documented by: Norepinephrine (Levophed Drip 4 Mg/Ns 250 Ml) 4 mg in 250 mls @ 7.5 mls/hr IV TITR CHARLIE; Protocol Last Admin: 03/09/19 08:46 Dose: 30 mcg/min, 112.5 mls/hr Documented by: Dextrose (D10w) 1,000 mls @ 75 mls/hr IV DIRECT CAHRLIE Vasopressin 20 unit/ Sodium (Chloride) 101 mls @ 9.09 mls/hr IV TITR CHARLIE; Protocol Last Admin: 03/09/19 05:40 Dose: 0.03 units/min, 9.09 mls/hr Documented by: Piperacillin Sod/Tazobactam Sod (Zosyn/Ns 4.5gm/100ml) 4.5 gm in 100 mls @ 200 mls/hr IV Q8H CHARLIE; Protocol Phenylephrine HCl 100 mg/ (Sodium Chloride) 100 mls @ 3 mls/hr IV TITR CHARLIE; Protocol Lorazepam (Ativan) 2 mg IV Q1HR PRN PRN Reason: CIWA-Ar 8-15 Metoclopramide HCl (Reglan) 10 mg IV Q6H PRN PRN Reason: Nausea And Vomiting Last Admin: 03/09/19 01:30 Dose: 10 mg Documented by: Midazolam HCl (Versed) 2 mg IV Q10MIN PRN PRN Reason: Sedation Multi-Ingred Cream/Lotion/Oil/Oint (Artificial Tears Ophth Oint) 1 applic OU Q4HR PRN PRN Reason: Dry Eye(s) Sodium Chloride (Sodium Chloride Flush Syringe 10 Ml) 10 ml IV BID CHARLIE Last Admin: 03/08/19 23:20 Dose: 10 ml Documented by: Sodium Chloride (Sodium Chloride Flush Syringe 10 Ml) 10 ml IV PRN PRN PRN Reason: LINE FLUSH Review of Systems ROS unobtainable: due to endotracheal tube, due to mental status Physical Examination Vital signs: Vital Signs Temp Pulse Resp BP Pulse Ox 98.6 F 116 H 16 117/64 100 03/08/19 09:43 03/08/19 09:43 03/08/19 09:43 03/08/19 09:43 03/08/19 09:43 General appearance: appears uncomfortable, other (mild respiratory distress) Eyes: icteric ENT: oropharynx dry Neck: supple, no lymphadenopathy, no JVD Effort: mildly labored Ascultation: Bilateral: diminished breath sounds Cardiovascular: other (Tachcardia, regulaar, S1,S2, no murmurs) Gastrointestinal: hypoactive bowel sounds, non-tender, non-distended Integumentary: normal Extremities: no cyanosis, no edema, cool unable to assess other (unable to assess) Results - Laboratory Findings CBC and BMP: 03/10/19 00:04 03/09/19 Unknown ABG POC ABG pH 7.375 (7.35-7.45) 03/09/19 02:02 POC ABG pCO2 31.8 (35-45) L 03/09/19 02:02 POC ABG pO2 142 (80-105) H 03/09/19 02:02 POC ABG HCO3 18.6 (22-26 mml/L) 03/09/19 02:02 POC ABG Total CO2 20 (23-27mmol/L) 03/09/19 02:02 POC ABG O2 Sat 99 03/09/19 02:02 PT/INR, D-dimer PT 16.9 Sec. (12.2-14.9) H 03/08/19 12:57 INR 1.41 (0.87-1.13) H 03/08/19 12:57 Abnormal lab findings: Abnormal Labs 03/08/19 03/08/19 03/08/19 09:34 12:57 12:59 WBC RBC 3.14 L Hgb 11.3 L Hct 33.3 L MCV 106 H MCH 36 H MCHC RDW 18.5 H Plt Count 61 L Seg Neutrophils % Seg Neuts % (Manual) Lymphocytes % (Manual) 50.0 H Monocytes % (Manual) Nucleated RBC % Seg Neutrophils # Man Lymphocytes # (Manual) Monocytes # (Manual) PT 16.9 H INR 1.41 H POC ABG pH POC ABG pCO2 POC ABG pO2 Sodium Potassium Chloride Carbon Dioxide BUN Creatinine Glucose POC Glucose Lactic Acid Calcium Phosphorus Iron TIBC Total Bilirubin AST ALT Albumin Lipase Urine WBC (Auto) Plasma/Serum Alcohol 0.34 H Crossmatch 03/08/19 03/08/19 03/08/19 13:12 13:14 14:21 WBC RBC Hgb Hct MCV MCH MCHC RDW Plt Count Seg Neutrophils % Seg Neuts % (Manual) Lymphocytes % (Manual) Monocytes % (Manual) Nucleated RBC % Seg Neutrophils # Man Lymphocytes # (Manual) Monocytes # (Manual) PT INR POC ABG pH POC ABG pCO2 POC ABG pO2 Sodium Potassium Chloride 89.4 L Carbon Dioxide 8 L* BUN Creatinine Glucose 74 L POC Glucose Lactic Acid Calcium Phosphorus Iron TIBC Total Bilirubin 4.70 H AST 611 H ALT 153 H Albumin Lipase Urine WBC (Auto) 18.0 H Plasma/Serum Alcohol Crossmatch See Detail 03/08/19 03/08/19 03/08/19 20:51 20:51 22:29 WBC 17.0 H RBC 2.21 L Hgb 8.0 L D Hct 26.8 L D MCV 121 H MCH 36 H MCHC 30 L RDW 20.5 H Plt Count 84 L Seg Neutrophils % Seg Neuts % (Manual) 83.0 H Lymphocytes % (Manual) 8.0 L Monocytes % (Manual) 9.0 H Nucleated RBC % 1.0 H Seg Neutrophils # Man 14.1 H Lymphocytes # (Manual) Monocytes # (Manual) 1.5 H PT INR POC ABG pH POC ABG pCO2 POC ABG pO2 Sodium Potassium 7.0 H* D Chloride 90.7 L Carbon Dioxide 3 L* BUN Creatinine 1.6 H Glucose 60 L POC Glucose 48 L Lactic Acid Calcium 8.0 L Phosphorus Iron TIBC Total Bilirubin 5.00 H AST 1815 H ALT 399 H Albumin 3.7 L Lipase Urine WBC (Auto) Plasma/Serum Alcohol Crossmatch 03/08/19 03/08/19 03/08/19 22:43 23:00 23:10 WBC RBC Hgb Hct MCV MCH MCHC RDW Plt Count Seg Neutrophils % Seg Neuts % (Manual) Lymphocytes % (Manual) Monocytes % (Manual) Nucleated RBC % Seg Neutrophils # Man Lymphocytes # (Manual) Monocytes # (Manual) PT INR POC ABG pH POC ABG pCO2 POC ABG pO2 Sodium Potassium 7.9 H* Chloride 86.4 L Carbon Dioxide 9 L* BUN Creatinine 1.7 H Glucose 314 H POC Glucose Lactic Acid 23.50 H* Calcium Phosphorus 8.60 H Iron TIBC Total Bilirubin AST ALT Albumin Lipase Urine WBC (Auto) Plasma/Serum Alcohol Crossmatch 03/08/19 03/09/19 03/09/19 23:50 00:00 00:31 WBC RBC Hgb Hct MCV MCH MCHC RDW Plt Count Seg Neutrophils % Seg Neuts % (Manual) Lymphocytes % (Manual) Monocytes % (Manual) Nucleated RBC % Seg Neutrophils # Man Lymphocytes # (Manual) Monocytes # (Manual) PT INR POC ABG pH 7.120 L POC ABG pCO2 30.7 L POC ABG pO2 130 H Sodium Potassium 6.3 H* D Chloride 93.7 L Carbon Dioxide 11 L BUN 21 H Creatinine 1.7 H Glucose 219 H POC Glucose 206 H Lactic Acid Calcium 8.2 L Phosphorus Iron TIBC Total Bilirubin AST ALT Albumin Lipase Urine WBC (Auto) Plasma/Serum Alcohol Crossmatch 03/09/19 03/09/19 03/09/19 00:47 01:45 02:02 WBC RBC 1.72 L Hgb 6.3 L Hct 20.0 L D MCV 117 H MCH 37 H MCHC 31 L RDW 20.9 H Plt Count 62 L Seg Neutrophils % Seg Neuts % (Manual) 93.0 H Lymphocytes % (Manual) 6.0 L Monocytes % (Manual) Nucleated RBC % 1.0 H Seg Neutrophils # Man 9.6 H Lymphocytes # (Manual) 0.6 L Monocytes # (Manual) PT INR POC ABG pH POC ABG pCO2 31.8 L POC ABG pO2 142 H Sodium Potassium Chloride Carbon Dioxide BUN Creatinine Glucose POC Glucose 182 H Lactic Acid Calcium Phosphorus Iron TIBC Total Bilirubin AST ALT Albumin Lipase Urine WBC (Auto) Plasma/Serum Alcohol Crossmatch 03/09/19 03/09/19 03/09/19 02:10 02:30 03:00 WBC RBC Hgb Hct MCV MCH MCHC RDW Plt Count Seg Neutrophils % Seg Neuts % (Manual) Lymphocytes % (Manual) Monocytes % (Manual) Nucleated RBC % Seg Neutrophils # Man Lymphocytes # (Manual) Monocytes # (Manual) PT INR POC ABG pH POC ABG pCO2 POC ABG pO2 Sodium 150 H D Potassium Chloride Carbon Dioxide BUN Creatinine Glucose 177 H POC Glucose 178 H Lactic Acid Calcium 10.5 H D Phosphorus Iron 208 H TIBC 185 L Total Bilirubin AST ALT Albumin Lipase Urine WBC (Auto) Plasma/Serum Alcohol Crossmatch 03/09/19 03/09/19 03/09/19 04:16 05:46 07:47 WBC RBC 1.06 L Hgb 3.9 L* Hct 11.7 L* D MCV 111 H MCH 37 H MCHC RDW 20.0 H Plt Count 52 L Seg Neutrophils % 79.1 H Seg Neuts % (Manual) Lymphocytes % (Manual) Monocytes % (Manual) Nucleated RBC % Seg Neutrophils # Man Lymphocytes # (Manual) Monocytes # (Manual) PT INR POC ABG pH POC ABG pCO2 POC ABG pO2 Sodium Potassium Chloride Carbon Dioxide BUN Creatinine Glucose POC Glucose 201 H 176 H Lactic Acid Calcium Phosphorus Iron TIBC Total Bilirubin AST ALT Albumin Lipase Urine WBC (Auto) Plasma/Serum Alcohol Crossmatch 03/09/19 03/09/19 03/09/19 07:48 07:48 Unknown WBC RBC Hgb Hct MCV MCH MCHC RDW Plt Count Seg Neutrophils % Seg Neuts % (Manual) Lymphocytes % (Manual) Monocytes % (Manual) Nucleated RBC % Seg Neutrophils # Man Lymphocytes # (Manual) Monocytes # (Manual) PT INR POC ABG pH POC ABG pCO2 POC ABG pO2 Sodium 154 H Potassium Chloride 111.2 H Carbon Dioxide 18 L BUN 22 H Creatinine 2.1 H Glucose 131 H POC Glucose Lactic Acid 19.10 H* Calcium Phosphorus Iron TIBC Total Bilirubin AST ALT Albumin Lipase 385 H Urine WBC (Auto) Plasma/Serum Alcohol Crossmatch - Diagnostic Findings Chest x-ray: image reviewed Assessment and Plan Acute GI bleed due to large esophageal varices, with hemorrhagic shock - s/p EGD by GI, Acute hypoxemic respiratory failure on MVS Possible septic shock, temperature spike Severe lactic acidosis History of alcohol abuse disorder Acute renal failure, deandre ATJoanna Hypernatremia Alcoholic hepatic cirrhosis -Continue with supportive blood transfusions -Wean vasopressor support to keep MAP>60( monitor closely to keep blood pressure within range to allow for organ perfusion but avoid bleeding) -Wean Levophed, then neosynephrine, then vasopressin -Monitor hemodynamics closely -VAP bundle addressed -Keep FIO2 at 1100% to optimiz oxygen carrying capacity. Once Hgb is stable wean FIO2 for O2 sats>90% -Transfuse to keep HgB>7g/dL, Platelets>50K -DIC panel ordered -Place hoffman catheter -Hypotonic solutions to treat hypernatremia -CIWA protocol -PPI, therapeutic dosing, change continuous infusion to BID dosing in 24 hours -Strict NPO, no NGT or OGT placement to avoid dislodging the bands -VAP bundle addressed, -SAT and SBT when hemodynamically normal -Octreotide infusion for 72 hours -Avoid nephrotoxins, adjust all medications for GFR and CRCL -SCDs for VTE prophylaxis -Accuchecks q4 with hypoglycemia protocol -ABG in am, CXR angie am- monitor for TRALI CONDITION: CRITIAL PROGNOSIS: GUARDED CODE STATUS: FULL CODE Discussed extensively with RT/RN and care team in ICU IDT rounds The high probability of a clinically significant, sudden or life threatening deterioration of the respiratory, gastroenterology/hepatology, renal systems required my full and direct attention, intervention and personal management. The aggregate critical care time was 75 minutes. This time is in addition to time spent performing reported procedures but includes the following: [x] Data Review and interpretation [x] Patient assessment and monitoring of vital signs [x] Documentation [x] Medication orders and management
[2019-03-09] MEDS ORDERED: ALBURX 25% (ALBUMIN) IV ONE (09:00)
--- NOTE | 2019-03-09 09:34 | Consultation ---
History of Present Illness - Reason for Consult Consult date: 03/09/19 acute renal failure, hyperkalemia, metabolic acidosis - History of Present Illness History obtained from medical records as patient is intubated. No family members are present at bedside. The patient is a 28-year-old male presenting with chief complaint of hematemesis and feeling "woozy". Patient has history of alcoholism and states that he drinks approximately 3 pints daily. The patient states he last consumed on e vening prior to presentation night. Patient developed hematemesis (dark blood) on AM of presentation. He also reported a hx of melena for several months. He recently relocated from [place] in January. He was admitted in September 2017 at an OSH in [place] and was told that he had liver disease. No follow up since then. Labs at admission were notable for SCr 1.2, bicarb 8 and Hb 11.3 Overnight, patient became tachycardic. Labs were repeated and notable for K >7, Bicarb 3, Lactic Acid 23.5 and Hb 8. Patient was admitted for mental status change/lethargy. This AM, labs notable for Hb 3.9. Past History Past Medical History: other (Cirrhosis) Past Surgical History: Other (cirrhosis) Social history: smoking, alcohol abuse Family history: no significant family history (Unable to obtain) Medications and Allergies Allergies Allergy/AdvReac Type Severity Reaction Status Date / Time No Known Allergies Allergy Verified 03/08/19 12:31 Active Meds: Active Medications Albuterol (Proventil) 2.5 mg IH Q3HRT PRN PRN Reason: Shortness Of Breath Dextrose (D50w (25gm) Syringe) 50 ml IV PRN PRN PRN Reason: Hypoglycemia Hydrophilic Ointment (Vaseline Lip Therapy) 1 applic TP Q2HR PRN PRN Reason: Dry Lips Pantoprazole Sodium 80 mg/ (Sodium Chloride) 100 mls @ 10 mls/hr IV DIRECT CHARLIE Last Admin: 03/09/19 01:28 Dose: 8 mg/hr, 10 mls/hr Documented by: Metronidazole (Flagyl 500 Mg/100 Ml) 500 mg in 100 mls @ 100 mls/hr IV Q8HR CHARLIE; Protocol Last Admin: 03/09/19 05:33 Dose: 100 mls/hr Documented by: Midazolam HCl 100 mg/ Sodium (Chloride) 100 mls @ 2 mls/hr IV TITR CHARLIE; Protocol Last Titration: 03/09/19 08:30 Dose: 0 mg/hr, 0 mls/hr Documented by: Sodium Chloride (Nacl 0.9% 1000 Ml) 1,000 mls @ 50 mls/hr IV DIRECT CHARLIE Last Admin: 03/09/19 02:45 Dose: 50 mls/hr Documented by: Norepinephrine (Levophed Drip 4 Mg/Ns 250 Ml) 4 mg in 250 mls @ 7.5 mls/hr IV TITR CHARLIE; Protocol Last Admin: 03/09/19 08:46 Dose: 30 mcg/min, 112.5 mls/hr Documented by: Dextrose (D10w) 1,000 mls @ 75 mls/hr IV DIRECT CHARLIE Vasopressin 20 unit/ Sodium (Chloride) 101 mls @ 9.09 mls/hr IV TITR CHARLIE; Protocol Last Admin: 03/09/19 05:40 Dose: 0.03 units/min, 9.09 mls/hr Documented by: Piperacillin Sod/Tazobactam Sod (Zosyn/Ns 4.5gm/100ml) 4.5 gm in 100 mls @ 200 mls/hr IV Q8H CHARLIE; Protocol Phenylephrine HCl 100 mg/ (Sodium Chloride) 100 mls @ 3 mls/hr IV TITR CHARLIE; Protocol Last Admin: 03/09/19 08:45 Dose: 50 mcg/min, 3 mls/hr Documented by: Octreotide Acetate 500 mcg/ (Sodium Chloride) 101 mls @ 5.05 mls/hr IV TITR CHARLIE; Protocol Lorazepam (Ativan) 2 mg IV Q1HR PRN PRN Reason: CIWA-Ar 8-15 Metoclopramide HCl (Reglan) 10 mg IV Q6H PRN PRN Reason: Nausea And Vomiting Last Admin: 03/09/19 01:30 Dose: 10 mg Documented by: Midazolam HCl (Versed) 2 mg IV Q10MIN PRN PRN Reason: Sedation Multi-Ingred Cream/Lotion/Oil/Oint (Artificial Tears Ophth Oint) 1 applic OU Q4HR PRN PRN Reason: Dry Eye(s) Sodium Chloride (Sodium Chloride Flush Syringe 10 Ml) 10 ml IV BID CHARLIE Last Admin: 03/08/19 23:20 Dose: 10 ml Documented by: Sodium Chloride (Sodium Chloride Flush Syringe 10 Ml) 10 ml IV PRN PRN PRN Reason: LINE FLUSH Review of Systems ROS unobtainable: due to endotracheal tube Exam - Vital Signs Vital signs: Vital Signs Temp Pulse Resp BP Pulse Ox 98.6 F 116 H 16 117/64 100 03/08/19 09:43 03/08/19 09:43 03/08/19 09:43 03/08/19 09:43 03/08/19 09:43 - General Appearance General appearance: well-developed, intubated EENT: ATNC, other (ETT in place) Respiratory: Decreased Breath Sounds Heart: tachycardia, S1S2 Gastrointestinal: Present: hypoactive bowel sounds, distended Integumentary: no rash, warm and dry Neurologic: other (sedated) Musculoskeletal: Present: other (no edema) Results - Lab Results 03/09/19 07:47 03/09/19 Unknown Most recent lab results Calcium 8.9 mg/dL (8.4-10.2) D 03/09/19 07:48 Phosphorus 8.60 mg/dL (2.5-4.5) H 03/08/19 22:43 Magnesium 2.30 mg/dL (1.7-2.3) 03/08/19 22:43 Assessment and Plan Impression * Acute kidney injury secondary to prerenal azotemia related to hypoperfusion/acute blood loss vs ATN * Metabolic acidosis secondary to lactic acidosis * Severe anemia secondary to ABL * GI bleed --EGD: 3-4 columns of large varices in the mid/distal esophagus. Variceal banding ligation performed. * Hyperkalemia - resolved * Acute respirtory failure on mechanical ventilation * Transaminitis * Alcohol abuse * Hypernatremia Plan: * Renal prognosis is guarded. Hyperkalemia corrected and metabolic acidosis improved with conservative management. No acute indication for renal replacement therapy at present. Will need to monitor closely * Will obtain urine lytes * Strict I/O; hoffman catheter placement in progress * Transfuse pRBC per GI/primary team * GI recommendations reviewed * Vent management per [facility] * Pressors prn to maintain MAP>65 * Abx per primary team * Dose medications for renal function * Avoid potential nephrotoxins
[2019-03-09] MEDS: D10W 1,000 ML IV SCH ×2 (09:55→22:05)
[2019-03-09] MEDS: SandoSTATIN 500 MCG in NACL 0.9% 100 ML IV SCH (09:58)
[2019-03-09] MEDS ORDERED: NACL 0.9% 1000 ML 1,000 ML IV ONE (10:10)
[2019-03-09] MEDS: SODIUM CHLORIDE FLUSH SYRINGE 10 ML IV SCH (10:28)
[2019-03-09] MEDS: ZOSYN/NS 4.5GM/100ML 4.5 GM/100 ML VIAL IV SCH (10:28)
[2019-03-09 11:45] LABS: Hepatitis B Surface Antigen Non-Reactive (Negative); Hepatitis C Virus Antibody Non-Reactive (NonReactive)
[2019-03-09] MEDS ORDERED: NACL 0.9% 500 ML 500 ML ONE (12:48)
[2019-03-09] MEDS: TYLENOL PR PRN (13:01)
[2019-03-09] MEDS ORDERED: ZEMURON IV ONE (14:30)
[2019-03-09] MEDS ORDERED: PHENYLEPHRINE/NS Syringe 1,000 MCG/10 ML IV ONE (14:30)
[2019-03-09 14:39] LABS: Basophils % (Auto) 0.5 % (0.0-1.8); Eosinophils % (Auto) 0.2 % (0.0-4.3); Hematocrit 25.8 % (35.5-45.6); Hemoglobin 8.9 gm/dl (11.8-15.2); Lymphocytes # (Auto) 1.3 K/mm3 (1.2-5.4); Lymphocytes % (Auto) 13.4 % (13.4-35.0); Mean Corpuscular HGB Conc 35 % (32-34); Mean Corpuscular Volume 96 fl (84-94); Monocytes # (Auto) 0.7 K/mm3 (0.0-0.8); Monocytes % (Auto) 6.8 % (0.0-7.3); Red Blood Count 2.69 M/mm3 (3.65-5.03); Red Cell Distribution Width 17.1 % (13.2-15.2)
[2019-03-09 14:45] LABS: Platelet Count 49 K/mm3 (140-440)
[2019-03-09 14:52] LABS: INR 2.7 (0.87-1.13)
[2019-03-09 14:53] LABS: Partial Thromboplastin Time 41.8 Sec. (24.2-36.6)
--- NOTE | 2019-03-09 16:54 | Progress Note ---
Assessment and Plan Acute GI bleed due to large esophageal varices - s/p EGD by GI, findings are following 1. A pool of blood in the fundus and cardia, not completely cleared out. 2. Blood in the distal esophagus. 3. 3-4 columns of large varices in the mid and distal esophagus. Variceal banding ligation performed with 5 bands placed successfully. 4. No obvious signs of gastric varices noted. 5. No other obvious source of bleeding noted in the stomach or the examined portion of the duodenum. - Continue with PPI IV (can switch to bid dosing) and octreotide drip x 76 hr. /Acute blood loss anemia, - Due to bleeding esophageal varises and DIC - s/p blood transfusion, monitor h/h Hypertensive vs septic shock due to acute blood loss - on pressors, s/p blood transfusion, cont iv fluid - start abx, chopra cx DIC, transfuse FFP, consult Dr Sparks - monitor PT/INR history of alcohol abuse, place on versad Acute respiratory failure, cont nebs, CC consulted SIRS versus sepsis with severe lactic acidosis and leukocytosis - chopra Cx, start abx till Cx negative Hyperkalemia, resolved Acute renal failure, likely ATN - cont iv fluid, nephrology consulted Hypernatremia, cont iv fluid, monitor BMP Elevated LFT, from alcoholic LD, cont to trend Alcoholic hepatic cirrhosis, GI following, monitor LFT DVT Px, SCD - Patient is critically ill with a very poor prognosis The high probability of a clinically significant, sudden or life threatening deterioration of the [multiple] system(s) required my full and direct attention, intervention and personal management. The aggregate critical care time was [45] minutes. This time is in addition to time spent performing reported procedures but includes the following: [x] Data Review and interpretation [x] Patient assessment and monitoring of vital signs [x] Documentation [x] Medication orders and management Subjective Date of service: 03/09/19 Interval history: patient seen and examined Intubated, sedated no family at bedside Objective - Constitutional Vitals: Vital Signs - 12hr 03/09/19 03/09/19 03/09/19 04:45 05:00 05:14 Temperature Pulse Rate 141 H 137 H 140 H Pulse Rate [ From Monitor] Respiratory 21 25 H Rate Blood Pressure 89/46 83/41 87/44 O2 Sat by Pulse 100 100 100 Oximetry 03/09/19 03/09/19 03/09/19 05:16 05:30 05:45 Temperature Pulse Rate 140 H 158 H 150 H Pulse Rate [ From Monitor] Respiratory 31 H 32 H 35 H Rate Blood Pressure 84/37 77/37 98/50 O2 Sat by Pulse 100 100 100 Oximetry 03/09/19 03/09/19 03/09/19 06:00 06:15 06:30 Temperature Pulse Rate 147 H 151 H 144 H Pulse Rate [ From Monitor] Respiratory 29 H 34 H 34 H Rate Blood Pressure 98/47 82/36 104/50 O2 Sat by Pulse 100 99 100 Oximetry 03/09/19 03/09/19 03/09/19 06:46 07:00 07:16 Temperature Pulse Rate 145 H 149 H 149 H Pulse Rate [ From Monitor] Respiratory 36 H 37 H 36 H Rate Blood Pressure 99/42 98/44 88/46 O2 Sat by Pulse 100 100 92 Oximetry 03/09/19 03/09/19 03/09/19 07:30 07:46 08:00 Temperature 99.3 F Pulse Rate 140 H 134 H 138 H Pulse Rate [ 138 H From Monitor] Respiratory 34 H 32 H 33 H Rate Blood Pressure 99/39 73/32 75/37 O2 Sat by Pulse 99 93 100 Oximetry 03/09/19 03/09/19 03/09/19 08:15 08:18 08:30 Temperature Pulse Rate 137 H 129 H 128 H Pulse Rate [ From Monitor] Respiratory 33 H 25 H Rate Blood Pressure 77/34 71/34 68/29 O2 Sat by Pulse 100 100 100 Oximetry 03/09/19 03/09/19 03/09/19 08:45 09:00 09:15 Temperature Pulse Rate 89 139 H 136 H Pulse Rate [ From Monitor] Respiratory 13 24 32 H Rate Blood Pressure 62/21 87/39 98/47 O2 Sat by Pulse 96 94 100 Oximetry 03/09/19 03/09/19 03/09/19 09:30 09:36 09:45 Temperature 98.9 F Pulse Rate 133 H 135 H 129 H Pulse Rate [ From Monitor] Respiratory 32 H 35 H 35 H Rate Blood Pressure 93/48 93/48 114/40 O2 Sat by Pulse 100 100 100 Oximetry 03/09/19 03/09/19 03/09/19 09:49 10:00 10:04 Temperature 98.6 F 99.2 F Pulse Rate 129 H 127 H 130 H Pulse Rate [ From Monitor] Respiratory 38 H 37 H 37 H Rate Blood Pressure 114/40 114/40 124/66 O2 Sat by Pulse 100 100 100 Oximetry 03/09/19 03/09/19 03/09/19 10:14 10:16 10:30 Temperature 99.3 F Pulse Rate 132 H 133 H 134 H Pulse Rate [ From Monitor] Respiratory 38 H 37 H 39 H Rate Blood Pressure 115/52 115/52 127/68 O2 Sat by Pulse 100 100 100 Oximetry 03/09/19 03/09/19 03/09/19 10:45 11:00 11:10 Temperature 99.0 F Pulse Rate 136 H 123 H 122 H Pulse Rate [ From Monitor] Respiratory 45 H 42 H 31 H Rate Blood Pressure 115/58 115/58 112/53 O2 Sat by Pulse 100 100 100 Oximetry 03/09/19 03/09/19 03/09/19 11:16 11:25 11:30 Temperature 99.8 F H Pulse Rate 132 H 124 H 122 H Pulse Rate [ From Monitor] Respiratory 25 H 36 H 35 H Rate Blood Pressure 96/44 96/44 122/64 O2 Sat by Pulse 100 100 100 Oximetry 03/09/19 03/09/19 03/09/19 11:46 11:49 11:53 Temperature 100.8 F H Pulse Rate 125 H 124 H 129 H Pulse Rate [ From Monitor] Respiratory 31 H 35 H Rate Blood Pressure 130/67 96/44 130/67 O2 Sat by Pulse 100 100 Oximetry 03/09/19 03/09/19 03/09/19 12:00 12:12 12:15 Temperature 101.3 F H Pulse Rate 130 H 137 H 133 H Pulse Rate [ 132 H From Monitor] Respiratory 36 H 37 H Rate Blood Pressure 131/68 129/72 129/72 O2 Sat by Pulse 100 100 100 Oximetry 03/09/19 03/09/19 03/09/19 12:30 12:45 13:00 Temperature Pulse Rate 140 H 139 H 136 H Pulse Rate [ From Monitor] Respiratory 37 H 37 H 36 H Rate Blood Pressure 117/73 123/69 119/69 O2 Sat by Pulse 100 100 100 Oximetry 03/09/19 03/09/19 13:01 13:15 Temperature Pulse Rate 146 H Pulse Rate [ From Monitor] Respiratory 35 H 23 Rate Blood Pressure 128/72 O2 Sat by Pulse 100 Oximetry General appearance: Present: mild distress, disheveled - EENT Eyes: PERRL, EOM intact ENT: other, no thrush Ears: bilateral: normal - Neck Neck: supple, normal ROM - Respiratory Respiratory effort: normal Respiratory: bilateral: CTA - Breasts Breasts: normal - Cardiovascular Rhythm: regular Heart Sounds: Present: S1 & S2. Absent: gallop, rub Extremities: pulses intact, No edema, normal color, Full ROM - Gastrointestinal General gastrointestinal: Present: soft, non-tender, non-distended, normal bowel sounds - Genitourinary Male genitourinary: normal - Integumentary Integumentary: clear, warm, dry - Musculoskeletal Musculoskeletal: other (no joint swelling) - Neurologic Neurologic: moves all extremities - Psychiatric Psychiatric: other (unable to assess) - Labs CBC & Chem 7: 03/10/19 14:04 03/10/19 03:36 Labs: Abnormal lab results 03/08/19 03/08/19 03/08/19 Range/Units 12:59 13:12 20:51 WBC 17.0 H (4.5-11.0) K/mm3 RBC 3.14 L 2.21 L (3.65-5.03) M/mm3 Hgb 11.3 L 8.0 L D (11.8-15.2) gm/dl Hct 33.3 L 26.8 L D (35.5-45.6) % MCV 106 H 121 H (84-94) fl MCH 36 H 36 H (28-32) pg MCHC 30 L (32-34) % RDW 18.5 H 20.5 H (13.2-15.2) % Plt Count 61 L 84 L (140-440) K/mm3 Seg Neutrophils % (40.0-70.0) % Seg Neuts % (Manual) 83.0 H (40.0-70.0) % Lymphocytes % (Manual) 50.0 H 8.0 L (13.4-35.0) % Monocytes % (Manual) 9.0 H (0.0-7.3) % Nucleated RBC % 1.0 H (0.0-0.9) % Seg Neutrophils # Man 14.1 H (1.8-7.7) K/mm3 Lymphocytes # (Manual) (1.2-5.4) K/mm3 Monocytes # (Manual) 1.5 H (0.0-0.8) K/mm3 PT (12.2-14.9) Sec. INR (0.87-1.13) APTT (24.2-36.6) Sec. Fibrinogen (211-480) mg/dl D-Dimer (0-234) ng/mlDDU POC ABG pH (7.35-7.45) POC ABG pCO2 (35-45) POC ABG pO2 (80-105) Sodium (137-145) mmol/L Potassium (3.6-5.0) mmol/L Chloride (98-107) mmol/L Carbon Dioxide (22-30) mmol/L BUN (9-20) mg/dL Creatinine (0.8-1.5) mg/dL Glucose (75-100) mg/dL POC Glucose (70-105) Lactic Acid (0.7-2.0) mmol/L Calcium (8.4-10.2) mg/dL Phosphorus (2.5-4.5) mg/dL Iron (49-181) ug/dL TIBC (250-450) mcg/dL Total Bilirubin (0.1-1.2) mg/dL AST (5-40) units/L ALT (7-56) units/L Albumin (3.9-5) g/dL Lipase (13-60) units/L Crossmatch See Detail 03/08/19 03/08/19 03/08/19 Range/Units 20:51 22:29 22:43 WBC (4.5-11.0) K/mm3 RBC (3.65-5.03) M/mm3 Hgb (11.8-15.2) gm/dl Hct (35.5-45.6) % MCV (84-94) fl MCH (28-32) pg MCHC (32-34) % RDW (13.2-15.2) % Plt Count (140-440) K/mm3 Seg Neutrophils % (40.0-70.0) % Seg Neuts % (Manual) (40.0-70.0) % Lymphocytes % (Manual) (13.4-35.0) % Monocytes % (Manual) (0.0-7.3) % Nucleated RBC % (0.0-0.9) % Seg Neutrophils # Man (1.8-7.7) K/mm3 Lymphocytes # (Manual) (1.2-5.4) K/mm3 Monocytes # (Manual) (0.0-0.8) K/mm3 PT (12.2-14.9) Sec. INR (0.87-1.13) APTT (24.2-36.6) Sec. Fibrinogen (211-480) mg/dl D-Dimer (0-234) ng/mlDDU POC ABG pH (7.35-7.45) POC ABG pCO2 (35-45) POC ABG pO2 (80-105) Sodium (137-145) mmol/L Potassium 7.0 H* D (3.6-5.0) mmol/L Chloride 90.7 L (98-107) mmol/L Carbon Dioxide 3 L* (22-30) mmol/L BUN (9-20) mg/dL Creatinine 1.6 H (0.8-1.5) mg/dL Glucose 60 L (75-100) mg/dL POC Glucose 48 L (70-105) Lactic Acid (0.7-2.0) mmol/L Calcium 8.0 L (8.4-10.2) mg/dL Phosphorus 8.60 H (2.5-4.5) mg/dL Iron (49-181) ug/dL TIBC (250-450) mcg/dL Total Bilirubin 5.00 H (0.1-1.2) mg/dL AST 1815 H (5-40) units/L ALT 399 H (7-56) units/L Albumin 3.7 L (3.9-5) g/dL Lipase (13-60) units/L Crossmatch 03/08/19 03/08/19 03/08/19 Range/Units 23:00 23:10 23:50 WBC (4.5-11.0) K/mm3 RBC (3.65-5.03) M/mm3 Hgb (11.8-15.2) gm/dl Hct (35.5-45.6) % MCV (84-94) fl MCH (28-32) pg MCHC (32-34) % RDW (13.2-15.2) % Plt Count (140-440) K/mm3 Seg Neutrophils % (40.0-70.0) % Seg Neuts % (Manual) (40.0-70.0) % Lymphocytes % (Manual) (13.4-35.0) % Monocytes % (Manual) (0.0-7.3) % Nucleated RBC % (0.0-0.9) % Seg Neutrophils # Man (1.8-7.7) K/mm3 Lymphocytes # (Manual) (1.2-5.4) K/mm3 Monocytes # (Manual) (0.0-0.8) K/mm3 PT (12.2-14.9) Sec. INR (0.87-1.13) APTT (24.2-36.6) Sec. Fibrinogen (211-480) mg/dl D-Dimer (0-234) ng/mlDDU POC ABG pH (7.35-7.45) POC ABG pCO2 (35-45) POC ABG pO2 (80-105) Sodium (137-145) mmol/L Potassium 7.9 H* 6.3 H* D (3.6-5.0) mmol/L Chloride 86.4 L 93.7 L (98-107) mmol/L Carbon Dioxide 9 L* 11 L (22-30) mmol/L BUN 21 H (9-20) mg/dL Creatinine 1.7 H 1.7 H (0.8-1.5) mg/dL Glucose 314 H 219 H (75-100) mg/dL POC Glucose (70-105) Lactic Acid 23.50 H* (0.7-2.0) mmol/L Calcium 8.2 L (8.4-10.2) mg/dL Phosphorus (2.5-4.5) mg/dL Iron (49-181) ug/dL TIBC (250-450) mcg/dL Total Bilirubin (0.1-1.2) mg/dL AST (5-40) units/L ALT (7-56) units/L Albumin (3.9-5) g/dL Lipase (13-60) units/L Crossmatch 03/09/19 03/09/19 03/09/19 Range/Units 00:00 00:31 00:47 WBC (4.5-11.0) K/mm3 RBC 1.72 L (3.65-5.03) M/mm3 Hgb 6.3 L (11.8-15.2) gm/dl Hct 20.0 L D (35.5-45.6) % MCV 117 H (84-94) fl MCH 37 H (28-32) pg MCHC 31 L (32-34) % RDW 20.9 H (13.2-15.2) % Plt Count 62 L (140-440) K/mm3 Seg Neutrophils % (40.0-70.0) % Seg Neuts % (Manual) 93.0 H (40.0-70.0) % Lymphocytes % (Manual) 6.0 L (13.4-35.0) % Monocytes % (Manual) (0.0-7.3) % Nucleated RBC % 1.0 H (0.0-0.9) % Seg Neutrophils # Man 9.6 H (1.8-7.7) K/mm3 Lymphocytes # (Manual) 0.6 L (1.2-5.4) K/mm3 Monocytes # (Manual) (0.0-0.8) K/mm3 PT (12.2-14.9) Sec. INR (0.87-1.13) APTT (24.2-36.6) Sec. Fibrinogen (211-480) mg/dl D-Dimer (0-234) ng/mlDDU POC ABG pH 7.120 L (7.35-7.45) POC ABG pCO2 30.7 L (35-45) POC ABG pO2 130 H (80-105) Sodium (137-145) mmol/L Potassium (3.6-5.0) mmol/L Chloride (98-107) mmol/L Carbon Dioxide (22-30) mmol/L BUN (9-20) mg/dL Creatinine (0.8-1.5) mg/dL Glucose (75-100) mg/dL POC Glucose 206 H (70-105) Lactic Acid (0.7-2.0) mmol/L Calcium (8.4-10.2) mg/dL Phosphorus (2.5-4.5) mg/dL Iron (49-181) ug/dL TIBC (250-450) mcg/dL Total Bilirubin (0.1-1.2) mg/dL AST (5-40) units/L ALT (7-56) units/L Albumin (3.9-5) g/dL Lipase (13-60) units/L Crossmatch 03/09/19 03/09/19 03/09/19 Range/Units 01:45 02:02 02:10 WBC (4.5-11.0) K/mm3 RBC (3.65-5.03) M/mm3 Hgb (11.8-15.2) gm/dl Hct (35.5-45.6) % MCV (84-94) fl MCH (28-32) pg MCHC (32-34) % RDW (13.2-15.2) % Plt Count (140-440) K/mm3 Seg Neutrophils % (40.0-70.0) % Seg Neuts % (Manual) (40.0-70.0) % Lymphocytes % (Manual) (13.4-35.0) % Monocytes % (Manual) (0.0-7.3) % Nucleated RBC % (0.0-0.9) % Seg Neutrophils # Man (1.8-7.7) K/mm3 Lymphocytes # (Manual) (1.2-5.4) K/mm3 Monocytes # (Manual) (0.0-0.8) K/mm3 PT (12.2-14.9) Sec. INR (0.87-1.13) APTT (24.2-36.6) Sec. Fibrinogen (211-480) mg/dl D-Dimer (0-234) ng/mlDDU POC ABG pH (7.35-7.45) POC ABG pCO2 31.8 L (35-45) POC ABG pO2 142 H (80-105) Sodium (137-145) mmol/L Potassium (3.6-5.0) mmol/L Chloride (98-107) mmol/L Carbon Dioxide (22-30) mmol/L BUN (9-20) mg/dL Creatinine (0.8-1.5) mg/dL Glucose (75-100) mg/dL POC Glucose 182 H 178 H (70-105) Lactic Acid (0.7-2.0) mmol/L Calcium (8.4-10.2) mg/dL Phosphorus (2.5-4.5) mg/dL Iron (49-181) ug/dL TIBC (250-450) mcg/dL Total Bilirubin (0.1-1.2) mg/dL AST (5-40) units/L ALT (7-56) units/L Albumin (3.9-5) g/dL Lipase (13-60) units/L Crossmatch 03/09/19 03/09/19 03/09/19 Range/Units 02:30 03:00 04:16 WBC (4.5-11.0) K/mm3 RBC (3.65-5.03) M/mm3 Hgb (11.8-15.2) gm/dl Hct (35.5-45.6) % MCV (84-94) fl MCH (28-32) pg MCHC (32-34) % RDW (13.2-15.2) % Plt Count (140-440) K/mm3 Seg Neutrophils % (40.0-70.0) % Seg Neuts % (Manual) (40.0-70.0) % Lymphocytes % (Manual) (13.4-35.0) % Monocytes % (Manual) (0.0-7.3) % Nucleated RBC % (0.0-0.9) % Seg Neutrophils # Man (1.8-7.7) K/mm3 Lymphocytes # (Manual) (1.2-5.4) K/mm3 Monocytes # (Manual) (0.0-0.8) K/mm3 PT (12.2-14.9) Sec. INR (0.87-1.13) APTT (24.2-36.6) Sec. Fibrinogen (211-480) mg/dl D-Dimer (0-234) ng/mlDDU POC ABG pH (7.35-7.45) POC ABG pCO2 (35-45) POC ABG pO2 (80-105) Sodium 150 H D (137-145) mmol/L Potassium (3.6-5.0) mmol/L Chloride (98-107) mmol/L Carbon Dioxide (22-30) mmol/L BUN (9-20) mg/dL Creatinine (0.8-1.5) mg/dL Glucose 177 H (75-100) mg/dL POC Glucose 201 H (70-105) Lactic Acid (0.7-2.0) mmol/L Calcium 10.5 H D (8.4-10.2) mg/dL Phosphorus (2.5-4.5) mg/dL Iron 208 H (49-181) ug/dL TIBC 185 L (250-450) mcg/dL Total Bilirubin (0.1-1.2) mg/dL AST (5-40) units/L ALT (7-56) units/L Albumin (3.9-5) g/dL Lipase (13-60) units/L Crossmatch 03/09/19 03/09/19 03/09/19 Range/Units 05:46 07:47 07:48 WBC (4.5-11.0) K/mm3 RBC 1.06 L (3.65-5.03) M/mm3 Hgb 3.9 L* (11.8-15.2) gm/dl Hct 11.7 L* D (35.5-45.6) % MCV 111 H (84-94) fl MCH 37 H (28-32) pg MCHC (32-34) % RDW 20.0 H (13.2-15.2) % Plt Count 52 L (140-440) K/mm3 Seg Neutrophils % 79.1 H (40.0-70.0) % Seg Neuts % (Manual) (40.0-70.0) % Lymphocytes % (Manual) (13.4-35.0) % Monocytes % (Manual) (0.0-7.3) % Nucleated RBC % (0.0-0.9) % Seg Neutrophils # Man (1.8-7.7) K/mm3 Lymphocytes # (Manual) (1.2-5.4) K/mm3 Monocytes # (Manual) (0.0-0.8) K/mm3 PT (12.2-14.9) Sec. INR (0.87-1.13) APTT (24.2-36.6) Sec. Fibrinogen (211-480) mg/dl D-Dimer (0-234) ng/mlDDU POC ABG pH (7.35-7.45) POC ABG pCO2 (35-45) POC ABG pO2 (80-105) Sodium (137-145) mmol/L Potassium (3.6-5.0) mmol/L Chloride (98-107) mmol/L Carbon Dioxide (22-30) mmol/L BUN (9-20) mg/dL Creatinine (0.8-1.5) mg/dL Glucose (75-100) mg/dL POC Glucose 176 H (70-105) Lactic Acid 19.10 H* (0.7-2.0) mmol/L Calcium (8.4-10.2) mg/dL Phosphorus (2.5-4.5) mg/dL Iron (49-181) ug/dL TIBC (250-450) mcg/dL Total Bilirubin (0.1-1.2) mg/dL AST (5-40) units/L ALT (7-56) units/L Albumin (3.9-5) g/dL Lipase (13-60) units/L Crossmatch 03/09/19 03/09/19 03/09/19 Range/Units 07:48 13:50 13:50 WBC (4.5-11.0) K/mm3 RBC 2.69 L (3.65-5.03) M/mm3 Hgb 8.9 L D (11.8-15.2) gm/dl Hct 25.8 L D (35.5-45.6) % MCV 96 H (84-94) fl MCH 33 H (28-32) pg MCHC 35 H (32-34) % RDW 17.1 H (13.2-15.2) % Plt Count 49 L (140-440) K/mm3 Seg Neutrophils % 79.1 H (40.0-70.0) % Seg Neuts % (Manual) (40.0-70.0) % Lymphocytes % (Manual) (13.4-35.0) % Monocytes % (Manual) (0.0-7.3) % Nucleated RBC % (0.0-0.9) % Seg Neutrophils # Man (1.8-7.7) K/mm3 Lymphocytes # (Manual) (1.2-5.4) K/mm3 Monocytes # (Manual) (0.0-0.8) K/mm3 PT 28.2 H (12.2-14.9) Sec. INR 2.70 H (0.87-1.13) APTT 41.8 H (24.2-36.6) Sec. Fibrinogen 81 L* (211-480) mg/dl D-Dimer 1494.02 H (0-234) ng/mlDDU POC ABG pH (7.35-7.45) POC ABG pCO2 (35-45) POC ABG pO2 (80-105) Sodium 154 H (137-145) mmol/L Potassium (3.6-5.0) mmol/L Chloride 111.2 H (98-107) mmol/L Carbon Dioxide 18 L (22-30) mmol/L BUN 22 H (9-20) mg/dL Creatinine 2.1 H (0.8-1.5) mg/dL Glucose 131 H (75-100) mg/dL POC Glucose (70-105) Lactic Acid (0.7-2.0) mmol/L Calcium (8.4-10.2) mg/dL Phosphorus (2.5-4.5) mg/dL Iron (49-181) ug/dL TIBC (250-450) mcg/dL Total Bilirubin (0.1-1.2) mg/dL AST (5-40) units/L ALT (7-56) units/L Albumin (3.9-5) g/dL Lipase (13-60) units/L Crossmatch 03/09/19 03/09/19 03/09/19 Range/Units 14:20 16:08 Unknown WBC (4.5-11.0) K/mm3 RBC (3.65-5.03) M/mm3 Hgb (11.8-15.2) gm/dl Hct (35.5-45.6) % MCV (84-94) fl MCH (28-32) pg MCHC (32-34) % RDW (13.2-15.2) % Plt Count (140-440) K/mm3 Seg Neutrophils % (40.0-70.0) % Seg Neuts % (Manual) (40.0-70.0) % Lymphocytes % (Manual) (13.4-35.0) % Monocytes % (Manual) (0.0-7.3) % Nucleated RBC % (0.0-0.9) % Seg Neutrophils # Man (1.8-7.7) K/mm3 Lymphocytes # (Manual) (1.2-5.4) K/mm3 Monocytes # (Manual) (0.0-0.8) K/mm3 PT (12.2-14.9) Sec. INR (0.87-1.13) APTT (24.2-36.6) Sec. Fibrinogen (211-480) mg/dl D-Dimer (0-234) ng/mlDDU POC ABG pH (7.35-7.45) POC ABG pCO2 (35-45) POC ABG pO2 (80-105) Sodium (137-145) mmol/L Potassium (3.6-5.0) mmol/L Chloride (98-107) mmol/L Carbon Dioxide (22-30) mmol/L BUN (9-20) mg/dL Creatinine (0.8-1.5) mg/dL Glucose (75-100) mg/dL POC Glucose 188 H 235 H (70-105) Lactic Acid (0.7-2.0) mmol/L Calcium (8.4-10.2) mg/dL Phosphorus (2.5-4.5) mg/dL Iron (49-181) ug/dL TIBC (250-450) mcg/dL Total Bilirubin (0.1-1.2) mg/dL AST (5-40) units/L ALT (7-56) units/L Albumin (3.9-5) g/dL Lipase 385 H (13-60) units/L Crossmatch
--- NOTE | 2019-03-09 16:55 | Gastroenterology Progress Note ---
Assessment and Plan GI: UGI bleed due to varicies s/p EGD w/ banding - continue Octreotide and PPI IV - follow h/h, would not transfuse to get Hgb >9 - vent per primary team - will follow closely Subjective Date of service: 03/09/19 Interval history: - no further signs bleeding today Objective - Constitutional Vitals: Temp Pulse Resp BP Pulse Ox 101.3 F H 136 H 35 H 97/52 100 03/09/19 12:00 03/09/19 16:41 03/09/19 16:00 03/09/19 16:41 03/09/19 16:41 General appearance: no acute distress - EENT Eyes: PERRL - Respiratory Respiratory: bilateral: rhonchi - Cardiovascular Rhythm: regular Heart Sounds: Present: S1 & S2 - Labs CBC & Chem 7: 03/09/19 13:50 03/09/19 Unknown Labs: Laboratory Results - last 24 hr 03/08/19 03/08/19 03/08/19 12:59 13:12 20:51 WBC 6.1 17.0 H RBC 3.14 L 2.21 L Hgb 11.3 L 8.0 L D Hct 33.3 L 26.8 L D MCV 106 H 121 H MCH 36 H 36 H MCHC 34 30 L RDW 18.5 H 20.5 H Plt Count 61 L 84 L Lymph % (Auto) [place] % (Auto) Eos % (Auto) Baso % (Auto) Lymph # [place] # Eos # Baso # Add Manual Diff Complete Complete Total Counted 100 100 Seg Neutrophils % Seg Neuts % (Manual) 46.0 83.0 H Band Neutrophils % 0 0 Lymphocytes % (Manual) 50.0 H 8.0 L Reactive Lymphs % (Man) 0 0 Monocytes % (Manual) 4.0 9.0 H Eosinophils % (Manual) 0 0 Basophils % (Manual) 0 0 Metamyelocytes % 0 0 Myelocytes % 0 0 Promyelocytes % 0 0 Blast Cells % 0 0 Nucleated RBC % 1.0 H Seg Neutrophils # Seg Neutrophils # Man 2.8 14.1 H Band Neutrophils # 0.0 0.0 Lymphocytes # (Manual) 3.1 1.4 Abs React Lymphs (Man) 0.0 0.0 Monocytes # (Manual) 0.2 1.5 H Eosinophils # (Manual) 0.0 0.0 Basophils # (Manual) 0.0 0.0 Metamyelocytes # 0.0 0.0 Myelocytes # 0.0 0.0 Promyelocytes # 0.0 0.0 Blast Cells # 0.0 0.0 WBC Morphology Not Reportable Not Reportable Hypersegmented Neuts Not Reportable Hyposegmented Neuts Not Reportable Hypogranular Neuts Not Reportable Smudge Cells Not Reportable Toxic Granulation Not Reportable Toxic Vacuolation Not Reportable Dohle Bodies Not Reportable Pelger-Huet Anomaly Not Reportable Meng Rods Not Reportable Platelet Estimate Appears decreased Consistent w auto Clumped Platelets Not Reportable Plt Clumps, EDTA Not Reportable Large Platelets 1+ Giant Platelets Not Reportable Platelet Satelliting Not Reportable Plt Morphology Comment Not Reportable RBC Morphology Not Reportable Dimorphic RBCs Not Reportable Polychromasia Not Reportable Hypochromasia Not Reportable Poikilocytosis Not Reportable Anisocytosis 2+ Not Reportable Microcytosis Not Reportable Macrocytosis 1+ Spherocytes Not Reportable Pappenheimer Bodies Not Reportable Sickle Cells Not Reportable Target Cells Not Reportable Tear Drop Cells Not Reportable Ovalocytes Not Reportable Helmet Cells Not Reportable [place] Bodies Not Reportable Fowler Rings Not Reportable [place] Cells Not Reportable Bite Cells Not Reportable Crenated Cell Not Reportable Elliptocytes Not Reportable Acanthocytes (Spur) Not Reportable Rouleaux Not Reportable Hemoglobin C Crystals Not Reportable Schistocytes Not Reportable Malaria parasites Not Reportable [place]y Bodies Not Reportable Hem Pathologist Commnt No No PT INR APTT Fibrinogen D-Dimer POC ABG pH POC ABG pCO2 POC ABG pO2 POC ABG HCO3 POC ABG Total CO2 POC ABG O2 Sat POC ABG Base Excess FiO2 Sodium Potassium Chloride Carbon Dioxide Anion Gap BUN Creatinine Estimated GFR BUN/Creatinine Ratio Glucose POC Glucose Lactic Acid Calcium Phosphorus Magnesium Iron TIBC Total Bilirubin AST ALT Alkaline Phosphatase Total Protein Albumin Albumin/Globulin Ratio Lipase Hepatitis A IgM Ab Hep Bs Antigen Hep B Core IgM Ab Hepatitis C Antibody Blood Type AB POSITIVE Antibody Screen Negative Crossmatch See Detail 03/08/19 03/08/19 03/08/19 20:51 22:29 22:43 WBC RBC Hgb Hct MCV MCH MCHC RDW Plt Count Lymph % (Auto) [place] % (Auto) Eos % (Auto) Baso % (Auto) Lymph # [place] # Eos # Baso # Add Manual Diff Total Counted Seg Neutrophils % Seg Neuts % (Manual) Band Neutrophils % Lymphocytes % (Manual) Reactive Lymphs % (Man) Monocytes % (Manual) Eosinophils % (Manual) Basophils % (Manual) Metamyelocytes % Myelocytes % Promyelocytes % Blast Cells % Nucleated RBC % Seg Neutrophils # Seg Neutrophils # Man Band Neutrophils # Lymphocytes # (Manual) Abs React Lymphs (Man) Monocytes # (Manual) Eosinophils # (Manual) Basophils # (Manual) Metamyelocytes # Myelocytes # Promyelocytes # Blast Cells # WBC Morphology Hypersegmented Neuts Hyposegmented Neuts Hypogranular Neuts Smudge Cells Toxic Granulation Toxic Vacuolation Dohle Bodies Pelger-Huet Anomaly Meng Rods Platelet Estimate Clumped Platelets Plt Clumps, EDTA Large Platelets Giant Platelets Platelet Satelliting Plt Morphology Comment RBC Morphology Dimorphic RBCs Polychromasia Hypochromasia Poikilocytosis Anisocytosis Microcytosis Macrocytosis Spherocytes Pappenheimer Bodies Sickle Cells Target Cells Tear Drop Cells Ovalocytes Helmet Cells [place] Bodies Fowler Rings [place] Cells Bite Cells Crenated Cell Elliptocytes Acanthocytes (Spur) Rouleaux Hemoglobin C Crystals Schistocytes Malaria parasites Santy Bodies Hem Pathologist Commnt PT INR APTT Fibrinogen D-Dimer POC ABG pH POC ABG pCO2 POC ABG pO2 POC ABG HCO3 POC ABG Total CO2 POC ABG O2 Sat POC ABG Base Excess FiO2 Sodium 140 Potassium 7.0 H* D Chloride 90.7 L Carbon Dioxide 3 L* Anion Gap 53 BUN 19 Creatinine 1.6 H Estimated GFR 51 BUN/Creatinine Ratio 12 Glucose 60 L POC Glucose 48 L Lactic Acid Calcium 8.0 L Phosphorus 8.60 H Magnesium 2.30 Iron TIBC Total Bilirubin 5.00 H AST 1815 H ALT 399 H Alkaline Phosphatase 88 Total Protein 6.9 Albumin 3.7 L Albumin/Globulin Ratio 1.2 Lipase Hepatitis A IgM Ab Hep Bs Antigen Hep B Core IgM Ab Hepatitis C Antibody Blood Type Antibody Screen Crossmatch 03/08/19 03/08/19 03/08/19 23:00 23:10 23:50 WBC RBC Hgb Hct MCV MCH MCHC RDW Plt Count Lymph % (Auto) [place] % (Auto) Eos % (Auto) Baso % (Auto) Lymph # [place] # Eos # Baso # Add Manual Diff Total Counted Seg Neutrophils % Seg Neuts % (Manual) Band Neutrophils % Lymphocytes % (Manual) Reactive Lymphs % (Man) Monocytes % (Manual) Eosinophils % (Manual) Basophils % (Manual) Metamyelocytes % Myelocytes % Promyelocytes % Blast Cells % Nucleated RBC % Seg Neutrophils # Seg Neutrophils # Man Band Neutrophils # Lymphocytes # (Manual) Abs React Lymphs (Man) Monocytes # (Manual) Eosinophils # (Manual) Basophils # (Manual) Metamyelocytes # Myelocytes # Promyelocytes # Blast Cells # WBC Morphology Hypersegmented Neuts Hyposegmented Neuts Hypogranular Neuts Smudge Cells Toxic Granulation Toxic Vacuolation Dohle Bodies Pelger-Huet Anomaly Meng Rods Platelet Estimate Clumped Platelets Plt Clumps, EDTA Large Platelets Giant Platelets Platelet Satelliting Plt Morphology Comment RBC Morphology Dimorphic RBCs Polychromasia Hypochromasia Poikilocytosis Anisocytosis Microcytosis Macrocytosis Spherocytes Pappenheimer Bodies Sickle Cells Target Cells Tear Drop Cells Ovalocytes Helmet Cells [place] Bodies Fowler Rings Nancie Cells Bite Cells Crenated Cell Elliptocytes Acanthocytes (Spur) Rouleaux Hemoglobin C Crystals Schistocytes Malaria parasites Santy Bodies Hem Pathologist Commnt PT INR APTT Fibrinogen D-Dimer POC ABG pH POC ABG pCO2 POC ABG pO2 POC ABG HCO3 POC ABG Total CO2 POC ABG O2 Sat POC ABG Base Excess FiO2 Sodium 137 142 Potassium 7.9 H* 6.3 H* D Chloride 86.4 L 93.7 L Carbon Dioxide 9 L* 11 L Anion Gap 50 44 BUN 20 21 H Creatinine 1.7 H 1.7 H Estimated GFR 48 48 BUN/Creatinine Ratio 12 12 Glucose 314 H 219 H POC Glucose Lactic Acid 23.50 H* Calcium 8.7 8.2 L Phosphorus Magnesium Iron TIBC Total Bilirubin AST ALT Alkaline Phosphatase Total Protein Albumin Albumin/Globulin Ratio Lipase Hepatitis A IgM Ab Hep Bs Antigen Hep B Core IgM Ab Hepatitis C Antibody Blood Type Antibody Screen Crossmatch 03/09/19 03/09/19 03/09/19 00:00 00:31 00:47 WBC 10.3 RBC 1.72 L Hgb 6.3 L Hct 20.0 L D MCV 117 H MCH 37 H MCHC 31 L RDW 20.9 H Plt Count 62 L Lymph % (Auto) [place] % (Auto) Eos % (Auto) Baso % (Auto) Lymph # [place] # Eos # Baso # Add Manual Diff Complete Total Counted 100 Seg Neutrophils % Seg Neuts % (Manual) 93.0 H Band Neutrophils % 0 Lymphocytes % (Manual) 6.0 L Reactive Lymphs % (Man) 1.0 Monocytes % (Manual) 0 Eosinophils % (Manual) 0 Basophils % (Manual) 0 Metamyelocytes % 0 Myelocytes % 0 Promyelocytes % 0 Blast Cells % 0 Nucleated RBC % 1.0 H Seg Neutrophils # Seg Neutrophils # Man 9.6 H Band Neutrophils # 0.0 Lymphocytes # (Manual) 0.6 L Abs React Lymphs (Man) 0.1 Monocytes # (Manual) 0.0 Eosinophils # (Manual) 0.0 Basophils # (Manual) 0.0 Metamyelocytes # 0.0 Myelocytes # 0.0 Promyelocytes # 0.0 Blast Cells # 0.0 WBC Morphology Not Reportable Hypersegmented Neuts Not Reportable Hyposegmented Neuts Not Reportable Hypogranular Neuts Not Reportable Smudge Cells Not Reportable Toxic Granulation Not Reportable Toxic Vacuolation Not Reportable Dohle Bodies Not Reportable Pelger-Huet Anomaly Not Reportable Meng Rods Not Reportable Platelet Estimate Consistent w auto Clumped Platelets Not Reportable Plt Clumps, EDTA Not Reportable Large Platelets Not Reportable Giant Platelets Not Reportable Platelet Satelliting Not Reportable Plt Morphology Comment Giant platelets RBC Morphology Not Reportable Dimorphic RBCs Not Reportable Polychromasia Not Reportable Hypochromasia Not Reportable Poikilocytosis Not Reportable Anisocytosis 1+ Microcytosis Not Reportable Macrocytosis Few Spherocytes Not Reportable Pappenheimer Bodies Not Reportable Sickle Cells Not Reportable Target Cells Not Reportable Tear Drop Cells Not Reportable Ovalocytes Not Reportable Helmet Cells Not Reportable [place] Bodies Not Reportable [place] Rings Not Reportable [place]ancie Cells Not Reportable Bite Cells Not Reportable Crenated Cell Not Reportable Elliptocytes Not Reportable Acanthocytes (Spur) Not Reportable Rouleaux Not Reportable Hemoglobin C Crystals Not Reportable Schistocytes Not Reportable Malaria parasites Not Reportable Santy Bodies Not Reportable Hem Pathologist Commnt No PT INR APTT Fibrinogen D-Dimer POC ABG pH 7.120 L POC ABG pCO2 30.7 L POC ABG pO2 130 H POC ABG HCO3 10.0 POC ABG Total CO2 11 POC ABG O2 Sat 98 POC ABG Base Excess -19 FiO2 35 Sodium Potassium Chloride Carbon Dioxide Anion Gap BUN Creatinine Estimated GFR BUN/Creatinine Ratio Glucose POC Glucose 206 H Lactic Acid Calcium Phosphorus Magnesium Iron TIBC Total Bilirubin AST ALT Alkaline Phosphatase Total Protein Albumin Albumin/Globulin Ratio Lipase Hepatitis A IgM Ab Hep Bs Antigen Hep B Core IgM Ab Hepatitis C Antibody Blood Type Antibody Screen Crossmatch 03/09/19 03/09/19 03/09/19 01:45 02:02 02:10 WBC RBC Hgb Hct MCV MCH MCHC RDW Plt Count Lymph % (Auto) [place] % (Auto) Eos % (Auto) Baso % (Auto) Lymph # [place] # Eos # Baso # Add Manual Diff Total Counted Seg Neutrophils % Seg Neuts % (Manual) Band Neutrophils % Lymphocytes % (Manual) Reactive Lymphs % (Man) Monocytes % (Manual) Eosinophils % (Manual) Basophils % (Manual) Metamyelocytes % Myelocytes % Promyelocytes % Blast Cells % Nucleated RBC % Seg Neutrophils # Seg Neutrophils # Man Band Neutrophils # Lymphocytes # (Manual) Abs React Lymphs (Man) Monocytes # (Manual) Eosinophils # (Manual) Basophils # (Manual) Metamyelocytes # Myelocytes # Promyelocytes # Blast Cells # WBC Morphology Hypersegmented Neuts Hyposegmented Neuts Hypogranular Neuts Smudge Cells Toxic Granulation Toxic Vacuolation Dohle Bodies Pelger-Huet Anomaly Meng Rods Platelet Estimate Clumped Platelets Plt Clumps, EDTA Large Platelets Giant Platelets Platelet Satelliting Plt Morphology Comment RBC Morphology Dimorphic RBCs Polychromasia Hypochromasia Poikilocytosis Anisocytosis Microcytosis Macrocytosis Spherocytes Pappenheimer Bodies Sickle Cells Target Cells Tear Drop Cells Ovalocytes Helmet Cells [place] Bodies Fowler Rings [place] Cells Bite Cells Crenated Cell Elliptocytes Acanthocytes (Spur) Rouleaux Hemoglobin C Crystals Schistocytes Malaria parasites Santy Bodies Hem Pathologist Commnt PT INR APTT Fibrinogen D-Dimer POC ABG pH 7.375 POC ABG pCO2 31.8 L POC ABG pO2 142 H POC ABG HCO3 18.6 POC ABG Total CO2 20 POC ABG O2 Sat 99 POC ABG Base Excess -7 FiO2 35 Sodium Potassium Chloride Carbon Dioxide Anion Gap BUN Creatinine Estimated GFR BUN/Creatinine Ratio Glucose POC Glucose 182 H 178 H Lactic Acid Calcium Phosphorus Magnesium Iron TIBC Total Bilirubin AST ALT Alkaline Phosphatase Total Protein Albumin Albumin/Globulin Ratio Lipase Hepatitis A IgM Ab Hep Bs Antigen Hep B Core IgM Ab Hepatitis C Antibody Blood Type Antibody Screen Crossmatch 03/09/19 03/09/19 03/09/19 02:30 03:00 04:16 WBC RBC Hgb Hct MCV MCH MCHC RDW Plt Count Lymph % (Auto) [place] % (Auto) Eos % (Auto) Baso % (Auto) Lymph # [place] # Eos # Baso # Add Manual Diff Total Counted Seg Neutrophils % Seg Neuts % (Manual) Band Neutrophils % Lymphocytes % (Manual) Reactive Lymphs % (Man) Monocytes % (Manual) Eosinophils % (Manual) Basophils % (Manual) Metamyelocytes % Myelocytes % Promyelocytes % Blast Cells % Nucleated RBC % Seg Neutrophils # Seg Neutrophils # Man Band Neutrophils # Lymphocytes # (Manual) Abs React Lymphs (Man) Monocytes # (Manual) Eosinophils # (Manual) Basophils # (Manual) Metamyelocytes # Myelocytes # Promyelocytes # Blast Cells # WBC Morphology Hypersegmented Neuts Hyposegmented Neuts Hypogranular Neuts Smudge Cells Toxic Granulation Toxic Vacuolation Dohle Bodies Pelger-Huet Anomaly Meng Rods Platelet Estimate Clumped Platelets Plt Clumps, EDTA Large Platelets Giant Platelets Platelet Satelliting Plt Morphology Comment RBC Morphology Dimorphic RBCs Polychromasia Hypochromasia Poikilocytosis Anisocytosis Microcytosis Macrocytosis Spherocytes Pappenheimer Bodies Sickle Cells Target Cells Tear Drop Cells Ovalocytes Helmet Cells [place] Bodies Fowler Rings [place] Cells Bite Cells Crenated Cell Elliptocytes Acanthocytes (Spur) Rouleaux Hemoglobin C Crystals Schistocytes Malaria parasites Santy Bodies Hem Pathologist Commnt PT INR APTT Fibrinogen D-Dimer POC ABG pH POC ABG pCO2 POC ABG pO2 POC ABG HCO3 POC ABG Total CO2 POC ABG O2 Sat POC ABG Base Excess FiO2 Sodium 150 H D Potassium 4.2 D Chloride 104.4 Carbon Dioxide 22 D Anion Gap 28 BUN 20 Creatinine 1.5 Estimated GFR 55 BUN/Creatinine Ratio 13 Glucose 177 H POC Glucose 201 H Lactic Acid Calcium 10.5 H D Phosphorus Magnesium Iron 208 H TIBC 185 L Total Bilirubin AST ALT Alkaline Phosphatase Total Protein Albumin Albumin/Globulin Ratio Lipase Hepatitis A IgM Ab Hep Bs Antigen Hep B Core IgM Ab Hepatitis C Antibody Blood Type Antibody Screen Crossmatch 03/09/19 03/09/19 03/09/19 05:46 07:47 07:47 WBC 7.8 RBC 1.06 L Hgb 3.9 L* Hct 11.7 L* D MCV 111 H MCH 37 H MCHC 33 RDW 20.0 H Plt Count 52 L Lymph % (Auto) 15.7 [place] % (Auto) 4.8 Eos % (Auto) 0.1 Baso % (Auto) 0.3 Lymph # 1.2 [place] # 0.4 Eos # 0.0 Baso # 0.0 Add Manual Diff Total Counted Seg Neutrophils % 79.1 H Seg Neuts % (Manual) Band Neutrophils % Lymphocytes % (Manual) Reactive Lymphs % (Man) Monocytes % (Manual) Eosinophils % (Manual) Basophils % (Manual) Metamyelocytes % Myelocytes % Promyelocytes % Blast Cells % Nucleated RBC % Seg Neutrophils # 6.2 Seg Neutrophils # Man Band Neutrophils # Lymphocytes # (Manual) Abs React Lymphs (Man) Monocytes # (Manual) Eosinophils # (Manual) Basophils # (Manual) Metamyelocytes # Myelocytes # Promyelocytes # Blast Cells # WBC Morphology Hypersegmented Neuts Hyposegmented Neuts Hypogranular Neuts Smudge Cells Toxic Granulation Toxic Vacuolation Dohle Bodies Pelger-Huet Anomaly Meng Rods Platelet Estimate Clumped Platelets Plt Clumps, EDTA Large Platelets Giant Platelets Platelet Satelliting Plt Morphology Comment RBC Morphology Dimorphic RBCs Polychromasia Hypochromasia Poikilocytosis Anisocytosis Microcytosis Macrocytosis Spherocytes Pappenheimer Bodies Sickle Cells Target Cells Tear Drop Cells Ovalocytes Helmet Cells [place] Bodies [place] Rings [place] Cells Bite Cells Crenated Cell Elliptocytes Acanthocytes (Spur) Rouleaux Hemoglobin C Crystals Schistocytes Malaria parasites Santy Bodies Hem Pathologist Commnt PT INR APTT Fibrinogen D-Dimer POC ABG pH POC ABG pCO2 POC ABG pO2 POC ABG HCO3 POC ABG Total CO2 POC ABG O2 Sat POC ABG Base Excess FiO2 Sodium Potassium Chloride Carbon Dioxide Anion Gap BUN Creatinine Estimated GFR BUN/Creatinine Ratio Glucose POC Glucose 176 H Lactic Acid Calcium Phosphorus Magnesium Iron TIBC Total Bilirubin AST ALT Alkaline Phosphatase Total Protein Albumin Albumin/Globulin Ratio Lipase Hepatitis A IgM Ab Non-reactive Hep Bs Antigen Non-reactive Hep B Core IgM Ab Non-reactive Hepatitis C Antibody Non-reactive Blood Type Antibody Screen Crossmatch 03/09/19 03/09/19 03/09/19 07:48 07:48 13:50 WBC 9.7 RBC 2.69 L Hgb 8.9 L D Hct 25.8 L D MCV 96 H MCH 33 H MCHC 35 H RDW 17.1 H Plt Count 49 L Lymph % (Auto) 13.4 [place] % (Auto) 6.8 Eos % (Auto) 0.2 Baso % (Auto) 0.5 Lymph # 1.3 [place] # 0.7 Eos # 0.0 Baso # 0.0 Add Manual Diff Total Counted Seg Neutrophils % 79.1 H Seg Neuts % (Manual) Band Neutrophils % Lymphocytes % (Manual) Reactive Lymphs % (Man) Monocytes % (Manual) Eosinophils % (Manual) Basophils % (Manual) Metamyelocytes % Myelocytes % Promyelocytes % Blast Cells % Nucleated RBC % Seg Neutrophils # 7.7 Seg Neutrophils # Man Band Neutrophils # Lymphocytes # (Manual) Abs React Lymphs (Man) Monocytes # (Manual) Eosinophils # (Manual) Basophils # (Manual) Metamyelocytes # Myelocytes # Promyelocytes # Blast Cells # WBC Morphology Hypersegmented Neuts Hyposegmented Neuts Hypogranular Neuts Smudge Cells Toxic Granulation Toxic Vacuolation Dohle Bodies Pelger-Huet Anomaly Meng Rods Platelet Estimate Clumped Platelets Plt Clumps, EDTA Large Platelets Giant Platelets Platelet Satelliting Plt Morphology Comment RBC Morphology Dimorphic RBCs Polychromasia Hypochromasia Poikilocytosis Anisocytosis Microcytosis Macrocytosis Spherocytes Pappenheimer Bodies Sickle Cells Target Cells Tear Drop Cells Ovalocytes Helmet Cells [place] Bodies Fowler Rings Nancie Cells Bite Cells Crenated Cell Elliptocytes Acanthocytes (Spur) Rouleaux Hemoglobin C Crystals Schistocytes Malaria parasites Santy Bodies Hem Pathologist Commnt PT INR APTT Fibrinogen D-Dimer POC ABG pH POC ABG pCO2 POC ABG pO2 POC ABG HCO3 POC ABG Total CO2 POC ABG O2 Sat POC ABG Base Excess FiO2 Sodium 154 H Potassium 4.4 Chloride 111.2 H Carbon Dioxide 18 L Anion Gap 29 BUN 22 H Creatinine 2.1 H Estimated GFR 37 BUN/Creatinine Ratio 10 Glucose 131 H POC Glucose Lactic Acid 19.10 H* Calcium 8.9 D Phosphorus Magnesium Iron TIBC Total Bilirubin AST ALT Alkaline Phosphatase Total Protein Albumin Albumin/Globulin Ratio Lipase Hepatitis A IgM Ab Hep Bs Antigen Hep B Core IgM Ab Hepatitis C Antibody Blood Type Antibody Screen Crossmatch 03/09/19 03/09/19 03/09/19 13:50 14:20 16:08 WBC RBC Hgb Hct MCV MCH MCHC RDW Plt Count Lymph % (Auto) [place] % (Auto) Eos % (Auto) Baso % (Auto) Lymph # [place] # Eos # Baso # Add Manual Diff Total Counted Seg Neutrophils % Seg Neuts % (Manual) Band Neutrophils % Lymphocytes % (Manual) Reactive Lymphs % (Man) Monocytes % (Manual) Eosinophils % (Manual) Basophils % (Manual) Metamyelocytes % Myelocytes % Promyelocytes % Blast Cells % Nucleated RBC % Seg Neutrophils # Seg Neutrophils # Man Band Neutrophils # Lymphocytes # (Manual) Abs React Lymphs (Man) Monocytes # (Manual) Eosinophils # (Manual) Basophils # (Manual) Metamyelocytes # Myelocytes # Promyelocytes # Blast Cells # WBC Morphology Hypersegmented Neuts Hyposegmented Neuts Hypogranular Neuts Smudge Cells Toxic Granulation Toxic Vacuolation Dohle Bodies Pelger-Huet Anomaly Meng Rods Platelet Estimate Clumped Platelets Plt Clumps, EDTA Large Platelets Giant Platelets Platelet Satelliting Plt Morphology Comment RBC Morphology Dimorphic RBCs Polychromasia Hypochromasia Poikilocytosis Anisocytosis Microcytosis Macrocytosis Spherocytes Pappenheimer Bodies Sickle Cells Target Cells Tear Drop Cells Ovalocytes Helmet Cells [place] Bodies Fowler Rings [place] Cells Bite Cells Crenated Cell Elliptocytes Acanthocytes (Spur) Rouleaux Hemoglobin C Crystals Schistocytes Malaria parasites Santy Bodies Hem Pathologist Commnt PT 28.2 H INR 2.70 H APTT 41.8 H Fibrinogen 81 L* D-Dimer 1494.02 H POC ABG pH POC ABG pCO2 POC ABG pO2 POC ABG HCO3 POC ABG Total CO2 POC ABG O2 Sat POC ABG Base Excess FiO2 Sodium Potassium Chloride Carbon Dioxide Anion Gap BUN Creatinine Estimated GFR BUN/Creatinine Ratio Glucose POC Glucose 188 H 235 H Lactic Acid Calcium Phosphorus Magnesium Iron TIBC Total Bilirubin AST ALT Alkaline Phosphatase Total Protein Albumin Albumin/Globulin Ratio Lipase Hepatitis A IgM Ab Hep Bs Antigen Hep B Core IgM Ab Hepatitis C Antibody Blood Type Antibody Screen Crossmatch 03/09/19 03/09/19 Unknown Unknown WBC RBC Hgb Hct MCV MCH MCHC RDW Plt Count Lymph % (Auto) [place] % (Auto) Eos % (Auto) Baso % (Auto) Lymph # [place] # Eos # Baso # Add Manual Diff Total Counted Seg Neutrophils % Seg Neuts % (Manual) Band Neutrophils % Lymphocytes % (Manual) Reactive Lymphs % (Man) Monocytes % (Manual) Eosinophils % (Manual) Basophils % (Manual) Metamyelocytes % Myelocytes % Promyelocytes % Blast Cells % Nucleated RBC % Seg Neutrophils # Seg Neutrophils # Man Band Neutrophils # Lymphocytes # (Manual) Abs React Lymphs (Man) Monocytes # (Manual) Eosinophils # (Manual) Basophils # (Manual) Metamyelocytes # Myelocytes # Promyelocytes # Blast Cells # WBC Morphology Hypersegmented Neuts Hyposegmented Neuts Hypogranular Neuts Smudge Cells Toxic Granulation Toxic Vacuolation Dohle Bodies Pelger-Huet Anomaly Meng Rods Platelet Estimate Clumped Platelets Plt Clumps, EDTA Large Platelets Giant Platelets Platelet Satelliting Plt Morphology Comment RBC Morphology Dimorphic RBCs Polychromasia Hypochromasia Poikilocytosis Anisocytosis Microcytosis Macrocytosis Spherocytes Pappenheimer Bodies Sickle Cells Target Cells Tear Drop Cells Ovalocytes Helmet Cells [place] Bodies [place] Rings [place] Cells Bite Cells Crenated Cell Elliptocytes Acanthocytes (Spur) Rouleaux Hemoglobin C Crystals Schistocytes Malaria parasites Santy Bodies Hem Pathologist Commnt PT INR APTT Fibrinogen D-Dimer POC ABG pH POC ABG pCO2 POC ABG pO2 POC ABG HCO3 POC ABG Total CO2 POC ABG O2 Sat POC ABG Base Excess FiO2 Sodium Potassium 4.2 Chloride Carbon Dioxide Anion Gap BUN Creatinine Estimated GFR BUN/Creatinine Ratio Glucose POC Glucose Lactic Acid Calcium Phosphorus Magnesium Iron TIBC Total Bilirubin AST ALT Alkaline Phosphatase Total Protein Albumin Albumin/Globulin Ratio Lipase 385 H Hepatitis A IgM Ab Hep Bs Antigen Hep B Core IgM Ab Hepatitis C Antibody Blood Type Antibody Screen Crossmatch
[2019-03-09] MEDS ORDERED: D5NS 1,000 ML IV SCH (23:45)
[2019-03-10 00:20] LABS: Hemoglobin 7.8 gm/dl (11.8-15.2)
[2019-03-10] MEDS: TYLENOL PR PRN ×2 (00:32→15:17)
--- NOTE | 2019-03-10 02:26 | XRay Report ---
CHEST 1 VIEW 03/10/2019 1:48 AM INDICATION / CLINICAL INFORMATION: follow up respiratory failure. COMPARISON: Chest x-ray 03/09/2019 FINDINGS: SUPPORT DEVICES: ET tube and right internal jugular central venous line again project in expected pos ition. HEART / MEDIASTINUM: No significant abnormality. LUNGS / PLEURA: Streaky bibasilar parenchymal disease, left greater than right has slightly worsened possibly secondary to developing pneumonia. No pneumothorax. ADDITIONAL FINDINGS: No significant additional findings. IMPRESSION: 1. Worsening bibasilar parenchymal disease. Signer Name: Michael Soto MD Signed: 03/10/2019 2:22 AM Workstation Name: [email or web address]
[2019-03-10] MEDS: SandoSTATIN 500 MCG in NACL 0.9% 100 ML IV SCH ×2 (02:59→21:14)
[2019-03-10] MEDS: Vasostrict 20 UNIT in NACL 0.9% 100 ML IV SCH ×2 (03:11→15:16)
[2019-03-10] MEDS: ZOSYN/NS 4.5GM/100ML 4.5 GM/100 ML VIAL IV SCH ×4 (03:39→17:55)
[2019-03-10 04:08] LABS: Basophils # (Auto) 0.1 K/mm3 (0.0-0.1); Basophils % (Auto) 1.1 % (0.0-1.8); Eosinophils # (Auto) 0.1 K/mm3 (0.0-0.4); Eosinophils % (Auto) 0.7 % (0.0-4.3); Hemoglobin 7.1 gm/dl (11.8-15.2); Lymphocytes # (Auto) 1.5 K/mm3 (1.2-5.4); Lymphocytes % (Auto) 18.8 % (13.4-35.0); Mean Corpuscular HGB Conc 36 % (32-34); Mean Corpuscular Volume 93 fl (84-94); Monocytes # (Auto) 0.5 K/mm3 (0.0-0.8); Monocytes % (Auto) 5.8 % (0.0-7.3); Red Blood Count 2.11 M/mm3 (3.65-5.03); Red Cell Distribution Width 17.9 % (13.2-15.2)
[2019-03-10 04:22] LABS: Hematocrit 19.7 % (35.5-45.6); Platelet Count 45 K/mm3 (140-440)
[2019-03-10 04:24] LABS: ABG Base Excess -0.9 mmol/L (-2.0-3.0); ABG Methemoglobin 0.7 % (0.0-1.5); ABG Oxygen Saturation 97.6 % (95.0-99.0); ABG PCO2 34.2 mm Hg; ABG PH 7.446 pH Units (7.350-7.450); ABG PO2 94.7 mm Hg (80.0-90.0)
[2019-03-10 04:29] LABS: Calcium 8.2 mg/dL (8.4-10.2)
[2019-03-10 04:31] LABS: Albumin 2.5 g/dL (3.9-5); Bilirubin,Direct 3.9 mg/dL (0-0.2)
--- NOTE | 2019-03-10 06:59 | Event Note ---
Date: 03/10/19 09....
--- NOTE | 2019-03-10 08:29 | Progress Note ---
Assessment and Plan Acute GI bleed due to large esophageal varices, with hemorrhagic shock - s/p EGD by GI, Acute hypoxemic respiratory failure on MVS Possible septic shock, temperature spike Severe lactic acidosis History of alcohol abuse disorder Acute renal failure, likely ATN/ vasomotor nephropathy Hypernatremia Alcoholic hepatic cirrhosis -Continue with supportive blood transfusions -Wean vasopressor support to keep MAP>60 - Continue to monitor hemodynamics closely -Broad spectrum antibiotics, follow up cultures then de-escalate antibiotics as indicated -VAP bundle addressed -Wean FIO2 for O2 sats>90% -Transfuse to keep HgB>7g/dL, Platelets>50K -DIC panel ordered, elevated fibrinogen, transfuse 1 unit of cryoprecipitate -Continue to monitor urine output, keep hoffman in for another 24 hours -With worsening renal inices, discussed with rneal may need TECTONOPHYSICIST -Hypotonic solutions to treat hypernatremia -CIWA protocol -PPI, therapeutic dosing, change continuous infusion to BID dosing -Strict NPO, no NGT or OGT placement to avoid dislodging the bands -SAT and SBT , start today, discussed with RT -Octreotide infusion to complete 72 hours -Avoid nephrotoxins, adjust all medications for GFR and CRCL -SCDs for VTE prophylaxis -Accuchecks q4 with hypoglycemia protocol -ABG in am, CXR in am CONDITION: CRITICAL PROGNOSIS: GUARDED CODE STATUS: FULL CODE Discussed extensively with RT/RN and care team in ICU IDT rounds Discussed with fiberglass boat finisher and chicken picker The high probability of a clinically significant, sudden or life threatening deterioration of the respiratory, gastroenterology/hepatology, renal systems required my full and direct attention, intervention and personal management. The aggregate critical care time was 35 minutes. This time is in addition to time spent performing reported procedures but includes the following: [x] Data Review and interpretation [x] Patient assessment and monitoring of vital signs [x] Documentation [x] Medication orders and management Subjective Date of service: 03/10/19 Interval history: Patient is seen today for: Ac. GI bleed (esophageal varices); hemorrhagic shock; Ac. hypoxemic resp failure; Possible septic shock; Severe lactic acidosis; H/O alcohol abuse disorder; Acute renal failure,ATN ; Hypernatremia Seen and examined at bedside; 24hour events reviewed; nursing and respiratory care staff consulted; no adverse overnight events reported to me; no further active bleeding noted, off vasopressors except for fixed dose vasopressin, hemodynamically improving. Remains critically ill on mechanical ventilatory support, worsening renal indices, remains oliguric. Vitals, labs, medications, chart reviewed Objective Vital Signs - 12hr 03/09/19 03/09/19 03/09/19 20:30 20:45 20:56 Temperature Pulse Rate 129 H 131 H 130 H Pulse Rate [ From Monitor] Respiratory 30 H 33 H 29 H Rate Blood Pressure 110/52 114/58 114/58 O2 Sat by Pulse 100 100 100 Oximetry 03/09/19 03/09/19 03/09/19 21:00 21:10 21:20 Temperature Pulse Rate 128 H 128 H 131 H Pulse Rate [ From Monitor] Respiratory 26 H 19 20 Rate Blood Pressure 113/57 113/57 120/59 O2 Sat by Pulse 100 95 99 Oximetry 03/09/19 03/09/19 03/09/19 21:30 21:40 21:50 Temperature Pulse Rate 127 H 129 H 132 H Pulse Rate [ From Monitor] Respiratory 29 H 34 H 34 H Rate Blood Pressure 117/62 117/62 124/59 O2 Sat by Pulse 100 100 99 Oximetry 03/09/19 03/09/19 03/09/19 22:00 22:10 22:20 Temperature Pulse Rate 133 H 132 H 128 H Pulse Rate [ 135 H From Monitor] Respiratory 30 H 22 17 Rate Blood Pressure 110/52 110/52 115/57 O2 Sat by Pulse 100 98 100 Oximetry 03/09/19 03/09/19 03/09/19 22:30 22:40 22:50 Temperature Pulse Rate 128 H 129 H 128 H Pulse Rate [ From Monitor] Respiratory 17 24 27 H Rate Blood Pressure 114/53 114/53 108/52 O2 Sat by Pulse 100 100 100 Oximetry 03/09/19 03/09/19 03/09/19 23:00 23:10 23:20 Temperature Pulse Rate 124 H 130 H 133 H Pulse Rate [ From Monitor] Respiratory 27 H 23 32 H Rate Blood Pressure 116/56 116/56 113/54 O2 Sat by Pulse 100 100 100 Oximetry 03/09/19 03/09/19 03/09/19 23:30 23:40 23:50 Temperature Pulse Rate 133 H 133 H 136 H Pulse Rate [ From Monitor] Respiratory 24 27 H 24 Rate Blood Pressure 110/52 110/52 111/49 O2 Sat by Pulse 100 96 97 Oximetry 03/09/19 03/10/19 03/10/19 23:53 00:00 00:05 Temperature 100.6 F H Pulse Rate 135 H 133 H Pulse Rate [ From Monitor] Respiratory 39 H Rate Blood Pressure 105/49 105/49 O2 Sat by Pulse 96 97 Oximetry 03/10/19 03/10/19 03/10/19 00:10 00:20 00:30 Temperature Pulse Rate 133 H 140 H Pulse Rate [ From Monitor] Respiratory 40 H 18 Rate Blood Pressure 105/49 123/48 127/52 O2 Sat by Pulse 97 100 100 Oximetry 03/10/19 03/10/19 03/10/19 00:40 00:50 01:00 Temperature Pulse Rate 152 H 142 H 139 H Pulse Rate [ From Monitor] Respiratory 23 24 32 H Rate Blood Pressure 127/52 104/37 94/37 O2 Sat by Pulse 100 100 100 Oximetry 03/10/19 03/10/19 03/10/19 01:07 01:15 01:30 Temperature 100.6 F H Pulse Rate 134 H 132 H Pulse Rate [ From Monitor] Respiratory 31 H 30 H Rate Blood Pressure 91/35 94/37 O2 Sat by Pulse 100 100 Oximetry 03/10/19 03/10/19 03/10/19 01:45 02:00 02:10 Temperature Pulse Rate 143 H 137 H 131 H Pulse Rate [ 131 H From Monitor] Respiratory 23 21 29 H Rate Blood Pressure 96/44 100/40 100/40 O2 Sat by Pulse 100 100 100 Oximetry 03/10/19 03/10/19 03/10/19 02:20 02:30 02:40 Temperature Pulse Rate 130 H 133 H 132 H Pulse Rate [ From Monitor] Respiratory 29 H 30 H 29 H Rate Blood Pressure 98/37 99/42 99/42 O2 Sat by Pulse 100 100 100 Oximetry 03/10/19 03/10/19 03/10/19 02:50 02:57 03:00 Temperature 101.2 F H Pulse Rate 129 H 142 H Pulse Rate [ From Monitor] Respiratory 28 H 19 Rate Blood Pressure 98/38 118/40 O2 Sat by Pulse 100 100 Oximetry 03/10/19 03/10/19 03/10/19 03:15 03:30 03:45 Temperature Pulse Rate 130 H 127 H 128 H Pulse Rate [ From Monitor] Respiratory 29 H 27 H 27 H Rate Blood Pressure 106/41 109/41 105/43 O2 Sat by Pulse 100 100 100 Oximetry 03/10/19 03/10/19 03/10/19 03:50 04:00 04:15 Temperature 99.9 F H Pulse Rate 127 H 130 H 127 H Pulse Rate [ 127 H From Monitor] Respiratory 27 H 28 H Rate Blood Pressure 105/43 116/44 106/43 O2 Sat by Pulse 100 100 100 Oximetry 03/10/19 03/10/19 03/10/19 04:30 04:45 05:00 Temperature Pulse Rate 154 H 135 H 130 H Pulse Rate [ From Monitor] Respiratory 21 30 H 27 H Rate Blood Pressure 99/52 109/39 109/39 O2 Sat by Pulse 68 L 97 Oximetry 03/10/19 03/10/19 03/10/19 05:16 05:30 05:45 Temperature Pulse Rate 158 H 133 H 127 H Pulse Rate [ From Monitor] Respiratory 19 29 H 27 H Rate Blood Pressure 106/38 103/43 98/44 O2 Sat by Pulse 98 98 98 Oximetry 03/10/19 03/10/19 03/10/19 06:00 06:15 06:30 Temperature Pulse Rate 134 H 142 H 126 H Pulse Rate [ From Monitor] Respiratory 27 H 34 H 27 H Rate Blood Pressure 110/53 120/52 113/41 O2 Sat by Pulse 100 98 99 Oximetry 03/10/19 03/10/19 03/10/19 06:46 07:00 07:16 Temperature Pulse Rate 137 H 124 H 146 H Pulse Rate [ From Monitor] Respiratory 24 25 H 24 Rate Blood Pressure 118/60 114/44 113/41 O2 Sat by Pulse 91 100 99 Oximetry 03/10/19 03/10/19 03/10/19 07:29 07:30 07:45 Temperature Pulse Rate 139 H 127 H 131 H Pulse Rate [ From Monitor] Respiratory 27 H 28 H Rate Blood Pressure 119/56 119/56 110/52 O2 Sat by Pulse 100 100 99 Oximetry 03/10/19 08:00 Temperature 99.4 F Pulse Rate 137 H Pulse Rate [ 141 H From Monitor] Respiratory 32 H Rate Blood Pressure 126/60 O2 Sat by Pulse 100 Oximetry Constitutional: appears uncomfortable, other (mild respiratory distress) Eyes: icteric, other (periorbital ecchymosis) ENT: oropharynx dry Neck: supple, no lymphadenopathy, no JVD Effort: mildly labored Ascultation: Bilateral: diminished breath sounds Cardiovascular: other (Tachcardia, regular, S1,S2, no murmurs) Gastrointestinal: hypoactive bowel sounds, non-tender, non-distended Integumentary: normal Extremities: no cyanosis, no edema, cool Neurologic: pupils equal and round, other (attempts to open eyes to verbal commands, non-focal) Psychiatric: other (unable to assess) CBC and BMP: 03/11/19 04:15 03/11/19 04:15 ABG, PT/INR, D-dimer: ABG POC ABG pH 7.375 (7.35-7.45) 03/09/19 02:02 ABG pH 7.446 pH Units (7.350-7.450) 03/10/19 03:53 POC ABG pCO2 31.8 (35-45) L 03/09/19 02:02 ABG pCO2 34.2 mm Hg 03/10/19 03:53 POC ABG pO2 142 (80-105) H 03/09/19 02:02 ABG pO2 94.7 mm Hg (80.0-90.0) H 03/10/19 03:53 POC ABG HCO3 18.6 (22-26 mml/L) 03/09/19 02:02 POC ABG Total CO2 20 (23-27mmol/L) 03/09/19 02:02 POC ABG O2 Sat 99 03/09/19 02:02 ABG O2 Saturation 97.6 % (95.0-99.0) 03/10/19 03:53 PT/INR, D-dimer PT 28.2 Sec. (12.2-14.9) H 03/09/19 13:50 INR 2.70 (0.87-1.13) H 03/09/19 13:50 1494.02 ng/mlDDU (0-234) H 03/09/19 13:50 Abnormal lab findings: Abnormal Labs 03/08/19 03/08/19 03/08/19 09:34 12:57 12:59 WBC RBC 3.14 L Hgb 11.3 L Hct 33.3 L MCV 106 H MCH 36 H MCHC RDW 18.5 H Plt Count 61 L Seg Neutrophils % Seg Neuts % (Manual) Lymphocytes % (Manual) 50.0 H Monocytes % (Manual) Nucleated RBC % Seg Neutrophils # Man Lymphocytes # (Manual) Monocytes # (Manual) PT 16.9 H INR 1.41 H APTT Fibrinogen D-Dimer POC ABG pH POC ABG pCO2 POC ABG pO2 ABG pO2 ABG Hemoglobin Sodium Potassium Chloride Carbon Dioxide BUN Creatinine Glucose POC Glucose Lactic Acid Calcium Phosphorus Iron TIBC Total Bilirubin Direct Bilirubin AST ALT Total Protein Albumin Lipase Urine WBC (Auto) Plasma/Serum Alcohol 0.34 H Crossmatch 03/08/19 03/08/19 03/08/19 13:12 13:14 14:21 WBC RBC Hgb Hct MCV MCH MCHC RDW Plt Count Seg Neutrophils % Seg Neuts % (Manual) Lymphocytes % (Manual) Monocytes % (Manual) Nucleated RBC % Seg Neutrophils # Man Lymphocytes # (Manual) Monocytes # (Manual) PT INR APTT Fibrinogen D-Dimer POC ABG pH POC ABG pCO2 POC ABG pO2 ABG pO2 ABG Hemoglobin Sodium Potassium Chloride 89.4 L Carbon Dioxide 8 L* BUN Creatinine Glucose 74 L POC Glucose Lactic Acid Calcium Phosphorus Iron TIBC Total Bilirubin 4.70 H Direct Bilirubin AST 611 H ALT 153 H Total Protein Albumin Lipase Urine WBC (Auto) 18.0 H Plasma/Serum Alcohol Crossmatch See Detail 03/08/19 03/08/19 03/08/19 20:51 20:51 22:29 WBC 17.0 H RBC 2.21 L Hgb 8.0 L D Hct 26.8 L D MCV 121 H MCH 36 H MCHC 30 L RDW 20.5 H Plt Count 84 L Seg Neutrophils % Seg Neuts % (Manual) 83.0 H Lymphocytes % (Manual) 8.0 L Monocytes % (Manual) 9.0 H Nucleated RBC % 1.0 H Seg Neutrophils # Man 14.1 H Lymphocytes # (Manual) Monocytes # (Manual) 1.5 H PT INR APTT Fibrinogen D-Dimer POC ABG pH POC ABG pCO2 POC ABG pO2 ABG pO2 ABG Hemoglobin Sodium Potassium 7.0 H* D Chloride 90.7 L Carbon Dioxide 3 L* BUN Creatinine 1.6 H Glucose 60 L POC Glucose 48 L Lactic Acid Calcium 8.0 L Phosphorus Iron TIBC Total Bilirubin 5.00 H Direct Bilirubin AST 1815 H ALT 399 H Total Protein Albumin 3.7 L Lipase Urine WBC (Auto) Plasma/Serum Alcohol Crossmatch 03/08/19 03/08/19 03/08/19 22:43 23:00 23:10 WBC RBC Hgb Hct MCV MCH MCHC RDW Plt Count Seg Neutrophils % Seg Neuts % (Manual) Lymphocytes % (Manual) Monocytes % (Manual) Nucleated RBC % Seg Neutrophils # Man Lymphocytes # (Manual) Monocytes # (Manual) PT INR APTT Fibrinogen D-Dimer POC ABG pH POC ABG pCO2 POC ABG pO2 ABG pO2 ABG Hemoglobin Sodium Potassium 7.9 H* Chloride 86.4 L Carbon Dioxide 9 L* BUN Creatinine 1.7 H Glucose 314 H POC Glucose Lactic Acid 23.50 H* Calcium Phosphorus 8.60 H Iron TIBC Total Bilirubin Direct Bilirubin AST ALT Total Protein Albumin Lipase Urine WBC (Auto) Plasma/Serum Alcohol Crossmatch 03/08/19 03/09/19 03/09/19 23:50 00:00 00:31 WBC RBC Hgb Hct MCV MCH MCHC RDW Plt Count Seg Neutrophils % Seg Neuts % (Manual) Lymphocytes % (Manual) Monocytes % (Manual) Nucleated RBC % Seg Neutrophils # Man Lymphocytes # (Manual) Monocytes # (Manual) PT INR APTT Fibrinogen D-Dimer POC ABG pH 7.120 L POC ABG pCO2 30.7 L POC ABG pO2 130 H ABG pO2 ABG Hemoglobin Sodium Potassium 6.3 H* D Chloride 93.7 L Carbon Dioxide 11 L BUN 21 H Creatinine 1.7 H Glucose 219 H POC Glucose 206 H Lactic Acid Calcium 8.2 L Phosphorus Iron TIBC Total Bilirubin Direct Bilirubin AST ALT Total Protein Albumin Lipase Urine WBC (Auto) Plasma/Serum Alcohol Crossmatch 03/09/19 03/09/19 03/09/19 00:47 01:45 02:02 WBC RBC 1.72 L Hgb 6.3 L Hct 20.0 L D MCV 117 H MCH 37 H MCHC 31 L RDW 20.9 H Plt Count 62 L Seg Neutrophils % Seg Neuts % (Manual) 93.0 H Lymphocytes % (Manual) 6.0 L Monocytes % (Manual) Nucleated RBC % 1.0 H Seg Neutrophils # Man 9.6 H Lymphocytes # (Manual) 0.6 L Monocytes # (Manual) PT INR APTT Fibrinogen D-Dimer POC ABG pH POC ABG pCO2 31.8 L POC ABG pO2 142 H ABG pO2 ABG Hemoglobin Sodium Potassium Chloride Carbon Dioxide BUN Creatinine Glucose POC Glucose 182 H Lactic Acid Calcium Phosphorus Iron TIBC Total Bilirubin Direct Bilirubin AST ALT Total Protein Albumin Lipase Urine WBC (Auto) Plasma/Serum Alcohol Crossmatch 03/09/19 03/09/19 03/09/19 02:10 02:30 03:00 WBC RBC Hgb Hct MCV MCH MCHC RDW Plt Count Seg Neutrophils % Seg Neuts % (Manual) Lymphocytes % (Manual) Monocytes % (Manual) Nucleated RBC % Seg Neutrophils # Man Lymphocytes # (Manual) Monocytes # (Manual) PT INR APTT Fibrinogen D-Dimer POC ABG pH POC ABG pCO2 POC ABG pO2 ABG pO2 ABG Hemoglobin Sodium 150 H D Potassium Chloride Carbon Dioxide BUN Creatinine Glucose 177 H POC Glucose 178 H Lactic Acid Calcium 10.5 H D Phosphorus Iron 208 H TIBC 185 L Total Bilirubin Direct Bilirubin AST ALT Total Protein Albumin Lipase Urine WBC (Auto) Plasma/Serum Alcohol Crossmatch 03/09/19 03/09/19 03/09/19 04:16 05:46 07:47 WBC RBC 1.06 L Hgb 3.9 L* Hct 11.7 L* D MCV 111 H MCH 37 H MCHC RDW 20.0 H Plt Count 52 L Seg Neutrophils % 79.1 H Seg Neuts % (Manual) Lymphocytes % (Manual) Monocytes % (Manual) Nucleated RBC % Seg Neutrophils # Man Lymphocytes # (Manual) Monocytes # (Manual) PT INR APTT Fibrinogen D-Dimer POC ABG pH POC ABG pCO2 POC ABG pO2 ABG pO2 ABG Hemoglobin Sodium Potassium Chloride Carbon Dioxide BUN Creatinine Glucose POC Glucose 201 H 176 H Lactic Acid Calcium Phosphorus Iron TIBC Total Bilirubin Direct Bilirubin AST ALT Total Protein Albumin Lipase Urine WBC (Auto) Plasma/Serum Alcohol Crossmatch 03/09/19 03/09/19 03/09/19 07:48 07:48 13:50 WBC RBC 2.69 L Hgb 8.9 L D Hct 25.8 L D MCV 96 H MCH 33 H MCHC 35 H RDW 17.1 H Plt Count 49 L Seg Neutrophils % 79.1 H Seg Neuts % (Manual) Lymphocytes % (Manual) Monocytes % (Manual) Nucleated RBC % Seg Neutrophils # Man Lymphocytes # (Manual) Monocytes # (Manual) PT INR APTT Fibrinogen D-Dimer POC ABG pH POC ABG pCO2 POC ABG pO2 ABG pO2 ABG Hemoglobin Sodium 154 H Potassium Chloride 111.2 H Carbon Dioxide 18 L BUN 22 H Creatinine 2.1 H Glucose 131 H POC Glucose Lactic Acid 19.10 H* Calcium Phosphorus Iron TIBC Total Bilirubin Direct Bilirubin AST ALT Total Protein Albumin Lipase Urine WBC (Auto) Plasma/Serum Alcohol Crossmatch 03/09/19 03/09/19 03/09/19 13:50 14:20 16:08 WBC RBC Hgb Hct MCV MCH MCHC RDW Plt Count Seg Neutrophils % Seg Neuts % (Manual) Lymphocytes % (Manual) Monocytes % (Manual) Nucleated RBC % Seg Neutrophils # Man Lymphocytes # (Manual) Monocytes # (Manual) PT 28.2 H INR 2.70 H APTT 41.8 H Fibrinogen 81 L* D-Dimer 1494.02 H POC ABG pH POC ABG pCO2 POC ABG pO2 ABG pO2 ABG Hemoglobin Sodium Potassium Chloride Carbon Dioxide BUN Creatinine Glucose POC Glucose 188 H 235 H Lactic Acid Calcium Phosphorus Iron TIBC Total Bilirubin Direct Bilirubin AST ALT Total Protein Albumin Lipase Urine WBC (Auto) Plasma/Serum Alcohol Crossmatch 03/09/19 03/09/19 03/09/19 17:55 23:26 Unknown WBC RBC Hgb Hct MCV MCH MCHC RDW Plt Count Seg Neutrophils % Seg Neuts % (Manual) Lymphocytes % (Manual) Monocytes % (Manual) Nucleated RBC % Seg Neutrophils # Man Lymphocytes # (Manual) Monocytes # (Manual) PT INR APTT Fibrinogen D-Dimer POC ABG pH POC ABG pCO2 POC ABG pO2 ABG pO2 ABG Hemoglobin Sodium Potassium Chloride Carbon Dioxide BUN Creatinine Glucose POC Glucose 233 H 236 H Lactic Acid Calcium Phosphorus Iron TIBC Total Bilirubin Direct Bilirubin AST ALT Total Protein Albumin Lipase 385 H Urine WBC (Auto) Plasma/Serum Alcohol Crossmatch 03/10/19 03/10/19 03/10/19 00:04 03:36 03:36 WBC RBC 2.11 L Hgb 7.8 L 7.1 L Hct 22.0 L 19.7 L* MCV MCH 34 H MCHC 36 H RDW 17.9 H Plt Count 45 L Seg Neutrophils % 73.6 H Seg Neuts % (Manual) Lymphocytes % (Manual) Monocytes % (Manual) Nucleated RBC % Seg Neutrophils # Man Lymphocytes # (Manual) Monocytes # (Manual) PT INR APTT Fibrinogen D-Dimer POC ABG pH POC ABG pCO2 POC ABG pO2 ABG pO2 ABG Hemoglobin Sodium 150 H Potassium 3.3 L D Chloride 113.2 H Carbon Dioxide BUN 30 H Creatinine 3.4 H D Glucose 196 H POC Glucose Lactic Acid Calcium 8.2 L Phosphorus Iron TIBC Total Bilirubin Direct Bilirubin AST ALT Total Protein Albumin Lipase Urine WBC (Auto) Plasma/Serum Alcohol Crossmatch 03/10/19 03/10/19 03/10/19 03:36 03:53 03:56 WBC RBC Hgb Hct MCV MCH MCHC RDW Plt Count Seg Neutrophils % Seg Neuts % (Manual) Lymphocytes % (Manual) Monocytes % (Manual) Nucleated RBC % Seg Neutrophils # Man Lymphocytes # (Manual) Monocytes # (Manual) PT INR APTT Fibrinogen D-Dimer POC ABG pH POC ABG pCO2 POC ABG pO2 ABG pO2 94.7 H ABG Hemoglobin 6.5 L Sodium Potassium Chloride Carbon Dioxide BUN Creatinine Glucose POC Glucose 212 H Lactic Acid Calcium Phosphorus Iron TIBC Total Bilirubin 4.90 H Direct Bilirubin 3.9 H AST 6235 H ALT 924 H Total Protein 4.2 L D Albumin 2.5 L Lipase Urine WBC (Auto) Plasma/Serum Alcohol Crossmatch 03/10/19 05:58 WBC RBC Hgb Hct MCV MCH MCHC RDW Plt Count Seg Neutrophils % Seg Neuts % (Manual) Lymphocytes % (Manual) Monocytes % (Manual) Nucleated RBC % Seg Neutrophils # Man Lymphocytes # (Manual) Monocytes # (Manual) PT INR APTT Fibrinogen D-Dimer POC ABG pH POC ABG pCO2 POC ABG pO2 ABG pO2 ABG Hemoglobin Sodium Potassium Chloride Carbon Dioxide BUN Creatinine Glucose POC Glucose 171 H Lactic Acid Calcium Phosphorus Iron TIBC Total Bilirubin Direct Bilirubin AST ALT Total Protein Albumin Lipase Urine WBC (Auto) Plasma/Serum Alcohol Crossmatch Chest x-ray: image reviewed Allied health notes reviewed: RT
[2019-03-10 08:39] LABS: Band Neutrophils # (Manual) 0.4 K/mm3; Basophils % (Manual) 0 % (0.0-1.8); Monocytes % (Manual) 0 % (0.0-7.3); Total Cells Counted 100
[2019-03-10 08:44] LABS: Platelet Estimate Consistent w Auto
[2019-03-10 08:45] LABS: Anisocytosis 1+; Schistocytes Rare
[2019-03-10] MEDS: SODIUM CHLORIDE FLUSH SYRINGE 10 ML IV SCH ×3 (09:31→21:15)
[2019-03-10] MEDS: D5W 1,000 ML IV SCH ×3 (09:32→21:07)
[2019-03-10 09:48] LABS: INR 2.83 (0.87-1.13)
[2019-03-10] MEDS: PROTONIX 80 MG in NACL 0.9% 100 ML IV SCH ×2 (10:59→21:14)
--- NOTE | 2019-03-10 11:26 | Consultation ---
REFERRING PHYSICIAN: Melvina Rdz MD REASON FOR CONSULTATION: DIC. HISTORY OF PRESENT ILLNESS: I saw the patient, a 28-year-old male in the ICU. The patient has history of alcohol usage, nicotine dependence and cirrhosis. He had hemoptysis/hematemesis, dark stools, feeling weakness. He was transported to [facility]. He was treated with PPI and octreotide drip. EGD found large mid and distal esophageal varices. He was intubated. At one time, hemoglobin was 3. He received transfusion support. Platelet support was given. PT, PTT is elevated. Fibrinogen level is low. I have been asked to evaluate the patient. At this time, the patient is intubated, not responding. No family members available. Most of the information comes from the medical records. PAST MEDICAL HISTORY: As above. SOCIAL HISTORY: History of alcohol and tobacco usage. FAMILY HISTORY: Noncontributory. ALLERGIES: None. MEDICATIONS: Include Tylenol, dextrose, metoclopramide and midazolam. PHYSICAL EXAMINATION: VITAL SIGNS: Temperature 99.9, pulse 127, respirations 27, BP 106/43. HEENT: Pallor present. Icterus present. Intubated. NECK: No neck lymph nodes. HEART: S1, S2. LUNGS: Decreased air entry anteriorly. ABDOMEN: Soft. EXTREMITIES: Pedal edema present. NEUROLOGIC: Not able to evaluate. LABORATORY DATA: White cell 8, hemoglobin 7, MCV 93, platelet 45. Potassium 3.3, creatinine 3.4, calcium 8.2, bilirubin 4.9, AST 6234. RADIOLOGY DATA: Abdomen CT, liver enlarged, borderline cirrhosis, colitis. ASSESSMENT AND PLAN: 1. Anemia. Hemoglobin was 3 secondary to gastrointestinal bleed. 2. Thrombocytopenia, likely secondary to consumption and liver disease. 3. Low fibrinogen and elevated PT, PTT, secondary to DIC/consumption. 4. Abnormal liver function test. 5. The patient's blood pressure was low and was on pressors. 6. Intubation. 7. History of cirrhosis. 8. History of alcohol usage and smoking. 9. Esophagogastroduodenoscopy showed varices, status post intervention. 10. The patient is on octreotide infusion. 11. We will look into cryoprecipitate as fibrinogen level is low. His LFTs are normal. Vitamin k may not benefit, we have option of FFPs. There is a mention of chest x-ray for monitoring TRALI. JOB# [id number] TALIB/MONIKA MARTINEZ
--- NOTE | 2019-03-10 11:52 | XRay Report ---
CHEST 1 VIEW INDICATION / CLINICAL INFORMATION: follow up respiratory failure. COMPARISON: 03/08/2019 FINDINGS: SUPPORT DEVICES: Endotracheal tube remains in place as well as central line. HEART / MEDIASTINUM: No significant abnormality. LUNGS / PLEURA: No significant pulmonary or pleural abnormality. No pneumothorax. ADDITIONAL FINDINGS: No significant additional findings. IMPRESSION: 1. No significant change Signer Name: Lobo Villavicencio MD Signed: 03/09/2019 9:06 AM Workstation Name: [id number]
[2019-03-10 14:25] LABS: Hemoglobin 6.7 gm/dl (11.8-15.2)
[2019-03-10] MEDS: ATIVAN IV PRN ×3 (14:32→22:43)
[2019-03-10 14:35] LABS: Hematocrit 18.8 % (35.5-45.6)
[2019-03-10] MEDS ORDERED: NACL 0.9% 500 ML 500 ML ONE (15:09)
[2019-03-10] MEDS ORDERED: NACL 0.9% 500 ML 500 ML IV SCH (15:28)
--- NOTE | 2019-03-10 15:43 | Progress Note ---
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 Variceal banding ligation performed. * Hyperkalemia - resolved * Acute respirtory failure on mechanical ventilation * Transaminitis * Alcohol abuse * Hypernatremia Plan: * Renal prognosis is guarded. Lytes are stable but UOP has declined. No acute indication for renal replacement therapy at present. Will need to monitor closely. Patient's mother at bedside. I have advised her of likelihood that patient will require dialysis. She is agreeable. * Strict I/O * Transfuse pRBC per GI/primary team * GI recommendations reviewed * Vent management per CCM * Pressors prn to maintain MAP>65 * Abx per primary team * Dose medications for renal function * Avoid potential nephrotoxins Subjective Date of service: 03/10/19 Interval history: 24h events reviewed Objective - Vital Signs Vital signs: Vital Signs - 12hr 03/10/19 03/10/19 03/10/19 03:45 03:50 04:00 Temperature 99.9 F H Pulse Rate 128 H 127 H 130 H Pulse Rate [ 127 H From Monitor] Respiratory 27 H 27 H Rate Blood Pressure 105/43 105/43 116/44 O2 Sat by Pulse 100 100 100 Oximetry 03/10/19 03/10/19 03/10/19 04:15 04:30 04:45 Temperature Pulse Rate 127 H 154 H 135 H Pulse Rate [ From Monitor] Respiratory 28 H 21 30 H Rate Blood Pressure 106/43 99/52 109/39 O2 Sat by Pulse 100 68 L Oximetry 03/10/19 03/10/19 03/10/19 05:00 05:16 05:30 Temperature Pulse Rate 130 H 158 H 133 H Pulse Rate [ From Monitor] Respiratory 27 H 19 29 H Rate Blood Pressure 109/39 106/38 103/43 O2 Sat by Pulse 97 98 98 Oximetry 03/10/19 03/10/19 03/10/19 05:45 06:00 06:15 Temperature Pulse Rate 127 H 134 H 142 H Pulse Rate [ From Monitor] Respiratory 27 H 27 H 34 H Rate Blood Pressure 98/44 110/53 120/52 O2 Sat by Pulse 98 100 98 Oximetry 03/10/19 03/10/19 03/10/19 06:30 06:46 07:00 Temperature Pulse Rate 126 H 137 H 124 H Pulse Rate [ From Monitor] Respiratory 27 H 24 25 H Rate Blood Pressure 113/41 118/60 114/44 O2 Sat by Pulse 99 91 100 Oximetry 03/10/19 03/10/19 03/10/19 07:16 07:29 07:30 Temperature Pulse Rate 146 H 139 H 127 H Pulse Rate [ From Monitor] Respiratory 24 27 H Rate Blood Pressure 113/41 119/56 119/56 O2 Sat by Pulse 99 100 100 Oximetry 03/10/19 03/10/19 03/10/19 07:45 08:00 08:15 Temperature 99.4 F Pulse Rate 131 H 137 H 132 H Pulse Rate [ 141 H From Monitor] Respiratory 28 H 32 H 29 H Rate Blood Pressure 110/52 126/60 122/56 O2 Sat by Pulse 99 100 100 Oximetry 03/10/19 03/10/19 03/10/19 08:30 08:45 09:00 Temperature Pulse Rate 125 H 120 H 120 H Pulse Rate [ From Monitor] Respiratory 25 H 23 24 Rate Blood Pressure 122/53 110/51 110/51 O2 Sat by Pulse 100 100 100 Oximetry 03/10/19 03/10/19 03/10/19 09:15 09:30 09:45 Temperature Pulse Rate 133 H 127 H 121 H Pulse Rate [ From Monitor] Respiratory 30 H 26 H 25 H Rate Blood Pressure 117/63 123/62 122/60 O2 Sat by Pulse 100 100 100 Oximetry 03/10/19 03/10/19 03/10/19 10:00 10:15 10:30 Temperature Pulse Rate 121 H 119 H 141 H Pulse Rate [ From Monitor] Respiratory 25 H 25 H 36 H Rate Blood Pressure 122/50 111/53 128/59 O2 Sat by Pulse 100 100 93 Oximetry 03/10/19 03/10/19 03/10/19 10:45 11:00 11:15 Temperature Pulse Rate 128 H 134 H 131 H Pulse Rate [ From Monitor] Respiratory 32 H 36 H 32 H Rate Blood Pressure 116/56 114/51 114/46 O2 Sat by Pulse 100 100 100 Oximetry 03/10/19 03/10/19 03/10/19 11:30 11:35 11:45 Temperature Pulse Rate 128 H 142 H 135 H Pulse Rate [ From Monitor] Respiratory 33 H 36 H 33 H Rate Blood Pressure 108/39 108/39 117/42 O2 Sat by Pulse 100 100 99 Oximetry 03/10/19 03/10/19 03/10/19 12:00 12:15 12:30 Temperature 99.3 F Pulse Rate 140 H 130 H 145 H Pulse Rate [ 140 H From Monitor] Respiratory 39 H 34 H 34 H Rate Blood Pressure 128/57 107/44 128/57 O2 Sat by Pulse 95 96 99 Oximetry 03/10/19 03/10/19 03/10/19 12:45 13:00 13:16 Temperature Pulse Rate 131 H 149 H 155 H Pulse Rate [ From Monitor] Respiratory 28 H 36 H 43 H Rate Blood Pressure 109/44 124/46 124/46 O2 Sat by Pulse Oximetry 03/10/19 03/10/19 03/10/19 13:30 13:45 14:00 Temperature Pulse Rate 140 H 141 H 159 H Pulse Rate [ From Monitor] Respiratory 32 H 30 H 41 H Rate Blood Pressure 112/52 117/43 117/43 O2 Sat by Pulse 97 Oximetry 03/10/19 03/10/19 03/10/19 14:15 14:30 14:46 Temperature Pulse Rate 136 H 163 H 177 H Pulse Rate [ From Monitor] Respiratory 28 H 25 H 38 H Rate Blood Pressure 110/39 117/43 115/54 O2 Sat by Pulse 100 97 96 Oximetry 03/10/19 03/10/19 03/10/19 14:50 15:00 15:05 Temperature 101.7 F H 101.4 F H Pulse Rate 145 H 161 H 148 H Pulse Rate [ From Monitor] Respiratory 30 H 40 H 34 H Rate Blood Pressure 120/54 123/57 113/44 O2 Sat by Pulse 99 98 99 Oximetry 03/10/19 03/10/19 15:15 15:30 Temperature Pulse Rate 155 H 142 H Pulse Rate [ From Monitor] Respiratory 16 29 H Rate Blood Pressure 111/60 101/40 O2 Sat by Pulse 98 100 Oximetry - General Appearance General appearance: intubated EENT: ATNC, other (ETT in place) Respiratory: Present: Other (coarse breath sounds) Cardiology: tachycardia Gastrointestinal: hypoactive bowel sounds, distended Integumentary: no rash Musculoskeletal: other (+trace edema) - Lab 03/10/19 14:04 03/10/19 03:36 Most recent lab results ABG pH 7.446 pH Units (7.350-7.450) 03/10/19 03:53 ABG pCO2 34.2 mm Hg 03/10/19 03:53 ABG pO2 94.7 mm Hg (80.0-90.0) H 03/10/19 03:53 ABG HCO3 23.0 mmol/L (20.0-26.0) 03/10/19 03:53 ABG O2 Saturation 97.6 % (95.0-99.0) 03/10/19 03:53 Calcium 8.2 mg/dL (8.4-10.2) L 03/10/19 03:36 Phosphorus 8.60 mg/dL (2.5-4.5) H 03/08/19 22:43 Magnesium 2.30 mg/dL (1.7-2.3) 03/08/19 22:43 Medications & Allergies - Medications Allergies/Adverse Reactions: Allergies No Known Allergies Allergy (Verified 03/08/19 12:31) Home Medications: Home Medications Medication Instructions Recorded Confirmed Last Taken Type No Known Home Medications [No 03/10/19 03/10/19 Unknown History Reported Home Medications] Active Medications: Generic Name Dose Route Start Last Admin Trade Name Freq PRN Reason Stop Dose Admin Acetaminophen 650 mg 03/09/19 13:00 03/10/19 15:17 Tylenol DC 650 mg Q4H PRN Administration Pain, Mild (1-3) Albuterol 2.5 mg 03/08/19 14:56 Proventil IH Q3HRT PRN Shortness Of Breath Dextrose 50 ml 03/09/19 01:34 D50w (25gm) Syringe IV PRN PRN Hypoglycemia Hydrophilic Ointment 1 applic 03/08/19 22:51 Vaseline Lip Therapy TP Q2HR PRN Dry Lips Pantoprazole Sodium 80 mg/ 100 mls @ 10 mls/hr 03/08/19 14:00 03/10/19 10:59 Sodium Chloride IV 8 mg/hr DIRECT CHARLIE 10 mls/hr Administration 8 MG/HR Midazolam HCl 100 mg/ Sodium 100 mls @ 2 mls/hr 03/08/19 23:00 03/10/19 14:27 Chloride IV 5 mg/hr TITR CHARLIE 5 mls/hr Titration Protocol 2 MG/HR Norepinephrine 4 mg in 250 mls @ 7.5 mls/hr 03/09/19 04:00 03/09/19 16:15 Levophed Drip 4 Mg/Ns 250 Ml IV 0 mcg/min TITR CHARLIE 0 mls/hr Titration Protocol 2 MCG/MIN Vasopressin 20 unit/ Sodium 101 mls @ 9.09 mls/hr 03/09/19 06:00 03/10/19 15:16 Chloride IV 0.03 units/min TITR CHARLIE 9.09 mls/hr Administration Protocol 0.03 UNITS/MIN Piperacillin Sod/Tazobactam Sod 4.5 gm in 100 mls @ 200 mls/hr 03/09/19 10:00 03/10/19 09:51 Zosyn/Ns 4.5gm/100ml IV 200 mls/hr Q8H CHARLIE Administration Protocol Phenylephrine HCl 100 mg/ 100 mls @ 3 mls/hr 03/09/19 08:45 03/10/19 10:51 Sodium Chloride IV 0 mcg/min TITR CHARLIE 0 mls/hr Titration Protocol 50 MCG/MIN Octreotide Acetate 500 mcg/ 101 mls @ 5.05 mls/hr 03/09/19 09:00 03/10/19 02:59 Sodium Chloride IV 25 mcg/hr TITR CHARLIE 5.05 mls/hr Administration Protocol 25 MCG/HR Dextrose 1,000 mls @ 125 mls/hr 03/10/19 10:00 03/10/19 09:32 D5w IV 125 mls/hr DIRECT CHARLIE Administration Sodium Chloride 500 mls @ 40 mls/hr 03/10/19 15:28 Nacl 0.9% 500 Ml IV 03/11/19 03:57 ONCE ONE Lorazepam 2 mg 03/08/19 14:57 03/10/19 14:32 Ativan IV 2 mg Q1HR PRN Administration CIWA-Ar 8-15 Metoclopramide HCl 10 mg 03/08/19 19:14 03/09/19 12:13 Reglan IV 10 mg Q6H PRN Administration Nausea And Vomiting Midazolam HCl 2 mg 03/08/19 22:51 Versed IV Q10MIN PRN Sedation Multi-Ingred Cream/Lotion/Oil/Oint 1 applic 03/08/19 22:51 Artificial Tears Ophth Oint OU Q4HR PRN Dry Eye(s) Sodium Chloride 10 ml 03/08/19 22:00 03/10/19 09:31 Sodium Chloride Flush Syringe 10 Ml IV 10 ml BID CHARLIE Administration Sodium Chloride 10 ml 03/08/19 14:56 Sodium Chloride Flush Syringe 10 Ml IV PRN PRN LINE FLUSH
--- NOTE | 2019-03-10 15:48 | Gastroenterology Progress Note ---
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 - noted slowly decreasing h/h w/o obvious signs active bleeding - follow h/h closely, if signs bleeding will rescope - continue Octreotide drip - continue Ceftriazone - vent management per primary team - condition guarded, will follow Subjective Date of service: 03/10/19 Interval history: - pt w/o obvious signs active bleeding overnight Objective - Exam Narrative Exam: intubated, sedated - Constitutional Vitals: Temp Pulse Resp BP Pulse Ox 101.4 F H 142 H 29 H 101/40 100 03/10/19 15:05 03/10/19 15:30 03/10/19 15:30 03/10/19 15:30 03/10/19 15:30 General appearance: no acute distress - EENT Eyes: PERRL - Respiratory Respiratory: bilateral: rhonchi - Cardiovascular Rhythm: regular Heart Sounds: Present: S1 & S2 - Gastrointestinal General gastrointestinal: Present: soft, non-tender, non-distended - Labs CBC & Chem 7: 03/10/19 14:04 03/10/19 03:36 Labs: Laboratory Results - last 24 hr 03/08/19 03/09/19 03/09/19 13:12 16:08 17:55 WBC RBC Hgb Hct MCV MCH MCHC RDW Plt Count Lymph % (Auto) [place] % (Auto) Eos % (Auto) Baso % (Auto) Lymph # [place] # Eos # Baso # Add Manual Diff Total Counted Seg Neutrophils % Seg Neuts % (Manual) Band Neutrophils % Lymphocytes % (Manual) Reactive Lymphs % (Man) Monocytes % (Manual) Eosinophils % (Manual) Basophils % (Manual) Metamyelocytes % Myelocytes % Promyelocytes % Blast Cells % Nucleated RBC % Seg Neutrophils # Seg Neutrophils # Man Band Neutrophils # Lymphocytes # (Manual) Abs React Lymphs (Man) Monocytes # (Manual) Eosinophils # (Manual) Basophils # (Manual) Metamyelocytes # Myelocytes # Promyelocytes # Blast Cells # Hypersegmented Neuts Hyposegmented Neuts Hypogranular Neuts Smudge Cells Toxic Granulation Toxic Vacuolation Dohle Bodies Pelger-Huet Anomaly Meng Rods Platelet Estimate Clumped Platelets Plt Clumps, EDTA Large Platelets Giant Platelets Platelet Satelliting Plt Morphology Comment RBC Morphology Dimorphic RBCs Polychromasia Hypochromasia Poikilocytosis Anisocytosis Microcytosis Macrocytosis Spherocytes Pappenheimer Bodies Sickle Cells Target Cells Tear Drop Cells Ovalocytes Helmet Cells [place] Bodies [place] Rings [place] Cells Bite Cells Crenated Cell Elliptocytes Acanthocytes (Spur) Rouleaux Hemoglobin C Crystals Schistocytes Malaria parasites Santy Bodies Hem Pathologist Commnt PT INR ABG pH ABG pCO2 ABG pO2 ABG HCO3 ABG O2 Saturation ABG O2 Content ABG Base Excess ABG Hemoglobin ABG Carboxyhemoglobin ABG Methemoglobin Oxyhemoglobin FiO2 Sodium Potassium Chloride Carbon Dioxide Anion Gap BUN Creatinine Estimated GFR BUN/Creatinine Ratio Glucose POC Glucose 235 H 233 H Calcium Total Bilirubin Direct Bilirubin Indirect Bilirubin AST ALT Alkaline Phosphatase Total Protein Albumin Albumin/Globulin Ratio Blood Type AB POSITIVE Antibody Screen Negative Crossmatch See Detail 03/09/19 03/10/19 03/10/19 23:26 00:04 03:36 WBC 8.0 RBC 2.11 L Hgb 7.8 L 7.1 L Hct 22.0 L 19.7 L* MCV 93 MCH 34 H MCHC 36 H RDW 17.9 H Plt Count 45 L Lymph % (Auto) 18.8 [place] % (Auto) 5.8 Eos % (Auto) 0.7 Baso % (Auto) 1.1 Lymph # 1.5 [place] # 0.5 Eos # 0.1 Baso # 0.1 Add Manual Diff Complete Total Counted 100 Seg Neutrophils % 73.6 H Seg Neuts % (Manual) 90.0 H Band Neutrophils % 5.0 Lymphocytes % (Manual) 3.0 L Reactive Lymphs % (Man) 0 Monocytes % (Manual) 0 Eosinophils % (Manual) 2.0 Basophils % (Manual) 0 Metamyelocytes % 0 Myelocytes % 0 Promyelocytes % 0 Blast Cells % 0 Nucleated RBC % 3.0 H Seg Neutrophils # 5.9 Seg Neutrophils # Man 7.2 Band Neutrophils # 0.4 Lymphocytes # (Manual) 0.2 L Abs React Lymphs (Man) 0.0 Monocytes # (Manual) 0.0 Eosinophils # (Manual) 0.2 Basophils # (Manual) 0.0 Metamyelocytes # 0.0 Myelocytes # 0.0 Promyelocytes # 0.0 Blast Cells # 0.0 Hypersegmented Neuts Not Reportable Hyposegmented Neuts Not Reportable Hypogranular Neuts Not Reportable Smudge Cells Not Reportable Toxic Granulation Not Reportable Toxic Vacuolation Not Reportable Dohle Bodies Not Reportable Pelger-Huet Anomaly Not Reportable Meng Rods Not Reportable Platelet Estimate Consistent w auto Clumped Platelets Not Reportable Plt Clumps, EDTA Not Reportable Large Platelets Not Reportable Giant Platelets Not Reportable Platelet Satelliting Not Reportable Plt Morphology Comment Not Reportable RBC Morphology Not Reportable Dimorphic RBCs Not Reportable Polychromasia Few Hypochromasia Not Reportable Poikilocytosis Not Reportable Anisocytosis 1+ Microcytosis Not Reportable Macrocytosis Not Reportable Spherocytes Not Reportable Pappenheimer Bodies Not Reportable Sickle Cells Not Reportable Target Cells Not Reportable Tear Drop Cells Not Reportable Ovalocytes Not Reportable Helmet Cells Not Reportable Zaman-[place] Bodies Not Reportable [place] Rings Not Reportable [place] Cells Not Reportable Bite Cells Not Reportable Crenated Cell Not Reportable Elliptocytes Not Reportable Acanthocytes (Spur) Not Reportable Rouleaux Not Reportable Hemoglobin C Crystals Not Reportable Schistocytes Rare Malaria parasites Not Reportable [place] Bodies Not Reportable Hem Pathologist Commnt Sent to pathology PT INR ABG pH ABG pCO2 ABG pO2 ABG HCO3 ABG O2 Saturation ABG O2 Content ABG Base Excess ABG Hemoglobin ABG Carboxyhemoglobin ABG Methemoglobin Oxyhemoglobin FiO2 Sodium Potassium Chloride Carbon Dioxide Anion Gap BUN Creatinine Estimated GFR BUN/Creatinine Ratio Glucose POC Glucose 236 H Calcium Total Bilirubin Direct Bilirubin Indirect Bilirubin AST ALT Alkaline Phosphatase Total Protein Albumin Albumin/Globulin Ratio Blood Type Antibody Screen Crossmatch 03/10/19 03/10/19 03/10/19 03:36 03:36 03:53 WBC RBC Hgb Hct MCV MCH MCHC RDW Plt Count Lymph % (Auto) [place] % (Auto) Eos % (Auto) Baso % (Auto) Lymph # [place] # Eos # Baso # Add Manual Diff Total Counted Seg Neutrophils % Seg Neuts % (Manual) Band Neutrophils % Lymphocytes % (Manual) Reactive Lymphs % (Man) Monocytes % (Manual) Eosinophils % (Manual) Basophils % (Manual) Metamyelocytes % Myelocytes % Promyelocytes % Blast Cells % Nucleated RBC % Seg Neutrophils # Seg Neutrophils # Man Band Neutrophils # Lymphocytes # (Manual) Abs React Lymphs (Man) Monocytes # (Manual) Eosinophils # (Manual) Basophils # (Manual) Metamyelocytes # Myelocytes # Promyelocytes # Blast Cells # Hypersegmented Neuts Hyposegmented Neuts Hypogranular Neuts Smudge Cells Toxic Granulation Toxic Vacuolation Dohle Bodies Pelger-Huet Anomaly Meng Rods Platelet Estimate Clumped Platelets Plt Clumps, EDTA Large Platelets Giant Platelets Platelet Satelliting Plt Morphology Comment RBC Morphology Dimorphic RBCs Polychromasia Hypochromasia Poikilocytosis Anisocytosis Microcytosis Macrocytosis Spherocytes Pappenheimer Bodies Sickle Cells Target Cells Tear Drop Cells Ovalocytes Helmet Cells [place] Bodies [place] Rings Nancie Cells Bite Cells Crenated Cell Elliptocytes Acanthocytes (Spur) Rouleaux Hemoglobin C Crystals Schistocytes Malaria parasites [place] Bodies Hem Pathologist Commnt PT INR ABG pH 7.446 ABG pCO2 34.2 ABG pO2 94.7 H ABG HCO3 23.0 ABG O2 Saturation 97.6 ABG O2 Content 9.0 ABG Base Excess -0.9 ABG Hemoglobin 6.5 L ABG Carboxyhemoglobin 1.7 ABG Methemoglobin 0.7 Oxyhemoglobin 95.2 FiO2 30 Sodium 150 H Potassium 3.3 L D Chloride 113.2 H Carbon Dioxide 24 Anion Gap 16 BUN 30 H Creatinine 3.4 H D Estimated GFR 21 BUN/Creatinine Ratio 9 Glucose 196 H POC Glucose Calcium 8.2 L Total Bilirubin 4.90 H Direct Bilirubin 3.9 H Indirect Bilirubin 1.0 AST 6235 H ALT 924 H Alkaline Phosphatase 42 Total Protein 4.2 L D Albumin 2.5 L Albumin/Globulin Ratio 1.5 Blood Type Antibody Screen Crossmatch 03/10/19 03/10/19 03/10/19 03:56 05:58 08:12 WBC RBC Hgb Hct MCV MCH MCHC RDW Plt Count Lymph % (Auto) [place] % (Auto) Eos % (Auto) Baso % (Auto) Lymph # [place] # Eos # Baso # Add Manual Diff Total Counted Seg Neutrophils % Seg Neuts % (Manual) Band Neutrophils % Lymphocytes % (Manual) Reactive Lymphs % (Man) Monocytes % (Manual) Eosinophils % (Manual) Basophils % (Manual) Metamyelocytes % Myelocytes % Promyelocytes % Blast Cells % Nucleated RBC % Seg Neutrophils # Seg Neutrophils # Man Band Neutrophils # Lymphocytes # (Manual) Abs React Lymphs (Man) Monocytes # (Manual) Eosinophils # (Manual) Basophils # (Manual) Metamyelocytes # Myelocytes # Promyelocytes # Blast Cells # Hypersegmented Neuts Hyposegmented Neuts Hypogranular Neuts Smudge Cells Toxic Granulation Toxic Vacuolation Dohle Bodies Pelger-Huet Anomaly Meng Rods Platelet Estimate Clumped Platelets Plt Clumps, EDTA Large Platelets Giant Platelets Platelet Satelliting Plt Morphology Comment RBC Morphology Dimorphic RBCs Polychromasia Hypochromasia Poikilocytosis Anisocytosis Microcytosis Macrocytosis Spherocytes Pappenheimer Bodies Sickle Cells Target Cells Tear Drop Cells Ovalocytes Helmet Cells [place] Bodies [place] Rings Nancie Cells Bite Cells Crenated Cell Elliptocytes Acanthocytes (Spur) Rouleaux Hemoglobin C Crystals Schistocytes Malaria parasites Santy Bodies Hem Pathologist Commnt PT INR ABG pH ABG pCO2 ABG pO2 ABG HCO3 ABG O2 Saturation ABG O2 Content ABG Base Excess ABG Hemoglobin ABG Carboxyhemoglobin ABG Methemoglobin Oxyhemoglobin FiO2 Sodium Potassium Chloride Carbon Dioxide Anion Gap BUN Creatinine Estimated GFR BUN/Creatinine Ratio Glucose POC Glucose 212 H 171 H 197 H Calcium Total Bilirubin Direct Bilirubin Indirect Bilirubin AST ALT Alkaline Phosphatase Total Protein Albumin Albumin/Globulin Ratio Blood Type Antibody Screen Crossmatch 03/10/19 03/10/19 03/10/19 09:26 11:40 14:04 WBC RBC Hgb 6.7 L Hct 18.8 L* MCV MCH MCHC RDW Plt Count Lymph % (Auto) [place] % (Auto) Eos % (Auto) Baso % (Auto) Lymph # [place] # Eos # Baso # Add Manual Diff Total Counted Seg Neutrophils % Seg Neuts % (Manual) Band Neutrophils % Lymphocytes % (Manual) Reactive Lymphs % (Man) Monocytes % (Manual) Eosinophils % (Manual) Basophils % (Manual) Metamyelocytes % Myelocytes % Promyelocytes % Blast Cells % Nucleated RBC % Seg Neutrophils # Seg Neutrophils # Man Band Neutrophils # Lymphocytes # (Manual) Abs React Lymphs (Man) Monocytes # (Manual) Eosinophils # (Manual) Basophils # (Manual) Metamyelocytes # Myelocytes # Promyelocytes # Blast Cells # Hypersegmented Neuts Hyposegmented Neuts Hypogranular Neuts Smudge Cells Toxic Granulation Toxic Vacuolation Dohle Bodies Pelger-Huet Anomaly Meng Rods Platelet Estimate Clumped Platelets Plt Clumps, EDTA Large Platelets Giant Platelets Platelet Satelliting Plt Morphology Comment RBC Morphology Dimorphic RBCs Polychromasia Hypochromasia Poikilocytosis Anisocytosis Microcytosis Macrocytosis Spherocytes Pappenheimer Bodies Sickle Cells Target Cells Tear Drop Cells Ovalocytes Helmet Cells [place] Bodies [place] Rings Nancie Cells Bite Cells Crenated Cell Elliptocytes Acanthocytes (Spur) Rouleaux Hemoglobin C Crystals Schistocytes Malaria parasites Santy Bodies Hem Pathologist Commnt PT 29.3 H INR 2.83 H ABG pH ABG pCO2 ABG pO2 ABG HCO3 ABG O2 Saturation ABG O2 Content ABG Base Excess ABG Hemoglobin ABG Carboxyhemoglobin ABG Methemoglobin Oxyhemoglobin FiO2 Sodium Potassium Chloride Carbon Dioxide Anion Gap BUN Creatinine Estimated GFR BUN/Creatinine Ratio Glucose POC Glucose 178 H Calcium Total Bilirubin Direct Bilirubin Indirect Bilirubin AST ALT Alkaline Phosphatase Total Protein Albumin Albumin/Globulin Ratio Blood Type Antibody Screen Crossmatch
--- NOTE | 2019-03-10 17:47 | Progress Note ---
Assessment and Plan Acute GI bleed due to large esophageal varices - s/p EGD by GI on 03/09, findings are following 1. A pool of blood in the fundus and cardia, not completely cleared out. 2. Blood in the distal esophagus. 3. 3-4 columns of large varices in the mid and distal esophagus. Variceal banding ligation performed with 5 bands placed successfully. 4. No obvious signs of gastric varices noted. 5. No other obvious source of bleeding noted in the stomach or the examined portion of the duodenum. -Per GI Continue with PPI IV and octreotide drip x 76 hr. - s/p 3 units PRBC transfusion, cont to monitor h/h /Acute blood loss anemia, - Due to bleeding esophageal varises and DIC - s/p 3 units blood transfusion, monitor h/h Hypertensive vs septic shock due to acute blood loss - on pressors, s/p blood transfusion, cont iv fluid - cont abx, follow cx - currently on vesopressin only DIC, s/p FFP transfusion, consult Dr Sparks - monitor PT/INR - transfuse cryoprecipitate history of alcohol abuse, placed on versad Acute respiratory failure, cont nebs, CC consulted SIRS versus sepsis with severe lactic acidosis and leukocytosis - chopra Cx, cont abx till Cx negative Hyperkalemia, resolved Acute renal failure, likely ATN - cont iv fluid, nephrology consulted - renal function not improving, minimal urine outpt - plan to start on HD Hypernatremia, cont iv fluid, monitor BMP Elevated LFT, from alcoholic LD, cont to trend Alcoholic hepatic cirrhosis, GI following, monitor LFT DVT Px, SCD - Patient is critically ill with a very poor prognosis The high probability of a clinically significant, sudden or life threatening deterioration of the [multiple] system(s) required my full and direct attention, intervention and personal management. The aggregate critical care time was [45] minutes. This time is in addition to time spent performing reported procedures but includes the following: [x] Data Review and interpretation [x] Patient assessment and monitoring of vital signs [x] Documentation [x] Medication orders and management Subjective Date of service: 03/10/19 Interval history: patient seen and examined Intubated, sedated Mother at bedside - updated Cr cont to trend up Objective - Exam Narrative Exam: General appearance: Present: mild distress, disheveled - EENT Eyes: PERRL, EOM intact ENT: other, no thrush Ears: bilateral: normal - Neck Neck: supple, normal ROM - Respiratory Respiratory effort: normal Respiratory: bilateral: CTA - Breasts Breasts: normal - Cardiovascular Rhythm: regular Heart Sounds: Present: S1 & S2. Absent: gallop, rub Extremities: pulses intact, No edema, normal color, Full ROM - Gastrointestinal General gastrointestinal: Present: soft, non-tender, non-distended, normal bowel sounds - Genitourinary Male genitourinary: normal - Integumentary Integumentary: clear, warm, dry - Musculoskeletal Musculoskeletal: other (no joint swelling) - Neurologic Neurologic: moves all extremities - Psychiatric Psychiatric: other (unable to assess - on vent) - Constitutional Vitals: Vital Signs - 12hr 03/10/19 03/10/19 03/10/19 06:00 06:15 06:30 Temperature Pulse Rate 134 H 142 H 126 H Pulse Rate [ From Monitor] Respiratory 27 H 34 H 27 H Rate Blood Pressure 110/53 120/52 113/41 O2 Sat by Pulse 100 98 99 Oximetry 03/10/19 03/10/19 03/10/19 06:46 07:00 07:16 Temperature Pulse Rate 137 H 124 H 146 H Pulse Rate [ From Monitor] Respiratory 24 25 H 24 Rate Blood Pressure 118/60 114/44 113/41 O2 Sat by Pulse 91 100 99 Oximetry 03/10/19 03/10/19 03/10/19 07:29 07:30 07:45 Temperature Pulse Rate 139 H 127 H 131 H Pulse Rate [ From Monitor] Respiratory 27 H 28 H Rate Blood Pressure 119/56 119/56 110/52 O2 Sat by Pulse 100 100 99 Oximetry 03/10/19 03/10/19 03/10/19 08:00 08:15 08:30 Temperature 99.4 F Pulse Rate 137 H 132 H 125 H Pulse Rate [ 141 H From Monitor] Respiratory 32 H 29 H 25 H Rate Blood Pressure 126/60 122/56 122/53 O2 Sat by Pulse 100 100 100 Oximetry 03/10/19 03/10/19 03/10/19 08:45 09:00 09:15 Temperature Pulse Rate 120 H 120 H 133 H Pulse Rate [ From Monitor] Respiratory 23 24 30 H Rate Blood Pressure 110/51 110/51 117/63 O2 Sat by Pulse 100 100 100 Oximetry 03/10/19 03/10/19 03/10/19 09:30 09:45 10:00 Temperature Pulse Rate 127 H 121 H 121 H Pulse Rate [ From Monitor] Respiratory 26 H 25 H 25 H Rate Blood Pressure 123/62 122/60 122/50 O2 Sat by Pulse 100 100 100 Oximetry 03/10/19 03/10/19 03/10/19 10:15 10:30 10:45 Temperature Pulse Rate 119 H 141 H 128 H Pulse Rate [ From Monitor] Respiratory 25 H 36 H 32 H Rate Blood Pressure 111/53 128/59 116/56 O2 Sat by Pulse 100 93 100 Oximetry 03/10/19 03/10/19 03/10/19 11:00 11:15 11:30 Temperature Pulse Rate 134 H 131 H 128 H Pulse Rate [ From Monitor] Respiratory 36 H 32 H 33 H Rate Blood Pressure 114/51 114/46 108/39 O2 Sat by Pulse 100 100 100 Oximetry 03/10/19 03/10/19 03/10/19 11:35 11:45 12:00 Temperature 99.3 F Pulse Rate 142 H 135 H 140 H Pulse Rate [ 140 H From Monitor] Respiratory 36 H 33 H 39 H Rate Blood Pressure 108/39 117/42 128/57 O2 Sat by Pulse 100 99 95 Oximetry 03/10/19 03/10/19 03/10/19 12:15 12:30 12:45 Temperature Pulse Rate 130 H 145 H 131 H Pulse Rate [ From Monitor] Respiratory 34 H 34 H 28 H Rate Blood Pressure 107/44 128/57 109/44 O2 Sat by Pulse 96 99 Oximetry 03/10/19 03/10/19 03/10/19 13:00 13:16 13:30 Temperature Pulse Rate 149 H 155 H 140 H Pulse Rate [ From Monitor] Respiratory 36 H 43 H 32 H Rate Blood Pressure 124/46 124/46 112/52 O2 Sat by Pulse Oximetry 03/10/19 03/10/19 03/10/19 13:45 14:00 14:15 Temperature Pulse Rate 141 H 159 H 136 H Pulse Rate [ From Monitor] Respiratory 30 H 41 H 28 H Rate Blood Pressure 117/43 117/43 110/39 O2 Sat by Pulse 97 100 Oximetry 03/10/19 03/10/19 03/10/19 14:30 14:46 14:50 Temperature 101.7 F H Pulse Rate 163 H 177 H 145 H Pulse Rate [ From Monitor] Respiratory 25 H 38 H 30 H Rate Blood Pressure 117/43 115/54 120/54 O2 Sat by Pulse 97 96 99 Oximetry 03/10/19 03/10/19 03/10/19 15:00 15:05 15:15 Temperature 101.4 F H Pulse Rate 161 H 148 H 155 H Pulse Rate [ From Monitor] Respiratory 40 H 34 H 16 Rate Blood Pressure 123/57 113/44 111/60 O2 Sat by Pulse 98 99 98 Oximetry 03/10/19 03/10/19 03/10/19 15:25 15:30 15:45 Temperature 100.6 F H Pulse Rate 138 H 142 H 137 H Pulse Rate [ From Monitor] Respiratory 29 H 29 H 28 H Rate Blood Pressure 108/42 101/40 102/36 O2 Sat by Pulse 100 100 100 Oximetry 03/10/19 03/10/19 16:00 16:29 Temperature 100.6 F H 100.3 F H Pulse Rate 140 H 133 H Pulse Rate [ 142 H From Monitor] Respiratory 33 H 29 H Rate Blood Pressure 118/47 114/42 O2 Sat by Pulse 100 100 Oximetry - Labs CBC & Chem 7: 03/11/19 04:15 03/11/19 04:15 Labs: Abnormal lab results 03/08/19 03/09/19 03/09/19 Range/Units 13:12 17:55 23:26 RBC (3.65-5.03) M/mm3 Hgb (11.8-15.2) gm/dl Hct (35.5-45.6) % MCH (28-32) pg MCHC (32-34) % RDW (13.2-15.2) % Plt Count (140-440) K/mm3 Seg Neutrophils % (40.0-70.0) % Seg Neuts % (Manual) (40.0-70.0) % Lymphocytes % (Manual) (13.4-35.0) % Nucleated RBC % (0.0-0.9) % Lymphocytes # (Manual) (1.2-5.4) K/mm3 PT (12.2-14.9) Sec. INR (0.87-1.13) ABG pO2 (80.0-90.0) mm Hg ABG Hemoglobin (14.0-18.0) gm/dl Sodium (137-145) mmol/L Potassium (3.6-5.0) mmol/L Chloride (98-107) mmol/L BUN (9-20) mg/dL Creatinine (0.8-1.5) mg/dL Glucose (75-100) mg/dL POC Glucose 233 H 236 H (70-105) Calcium (8.4-10.2) mg/dL Total Bilirubin (0.1-1.2) mg/dL Direct Bilirubin (0-0.2) mg/dL AST (5-40) units/L ALT (7-56) units/L Total Protein (6.3-8.2) g/dL Albumin (3.9-5) g/dL Crossmatch See Detail 03/10/19 03/10/19 03/10/19 Range/Units 00:04 03:36 03:36 RBC 2.11 L (3.65-5.03) M/mm3 Hgb 7.8 L 7.1 L (11.8-15.2) gm/dl Hct 22.0 L 19.7 L* (35.5-45.6) % MCH 34 H (28-32) pg MCHC 36 H (32-34) % RDW 17.9 H (13.2-15.2) % Plt Count 45 L (140-440) K/mm3 Seg Neutrophils % 73.6 H (40.0-70.0) % Seg Neuts % (Manual) 90.0 H (40.0-70.0) % Lymphocytes % (Manual) 3.0 L (13.4-35.0) % Nucleated RBC % 3.0 H (0.0-0.9) % Lymphocytes # (Manual) 0.2 L (1.2-5.4) K/mm3 PT (12.2-14.9) Sec. INR (0.87-1.13) ABG pO2 (80.0-90.0) mm Hg ABG Hemoglobin (14.0-18.0) gm/dl Sodium 150 H (137-145) mmol/L Potassium 3.3 L D (3.6-5.0) mmol/L Chloride 113.2 H (98-107) mmol/L BUN 30 H (9-20) mg/dL Creatinine 3.4 H D (0.8-1.5) mg/dL Glucose 196 H (75-100) mg/dL POC Glucose (70-105) Calcium 8.2 L (8.4-10.2) mg/dL Total Bilirubin (0.1-1.2) mg/dL Direct Bilirubin (0-0.2) mg/dL AST (5-40) units/L ALT (7-56) units/L Total Protein (6.3-8.2) g/dL Albumin (3.9-5) g/dL Crossmatch 03/10/19 03/10/19 03/10/19 Range/Units 03:36 03:53 03:56 RBC (3.65-5.03) M/mm3 Hgb (11.8-15.2) gm/dl Hct (35.5-45.6) % MCH (28-32) pg MCHC (32-34) % RDW (13.2-15.2) % Plt Count (140-440) K/mm3 Seg Neutrophils % (40.0-70.0) % Seg Neuts % (Manual) (40.0-70.0) % Lymphocytes % (Manual) (13.4-35.0) % Nucleated RBC % (0.0-0.9) % Lymphocytes # (Manual) (1.2-5.4) K/mm3 PT (12.2-14.9) Sec. INR (0.87-1.13) ABG pO2 94.7 H (80.0-90.0) mm Hg ABG Hemoglobin 6.5 L (14.0-18.0) gm/dl Sodium (137-145) mmol/L Potassium (3.6-5.0) mmol/L Chloride (98-107) mmol/L BUN (9-20) mg/dL Creatinine (0.8-1.5) mg/dL Glucose (75-100) mg/dL POC Glucose 212 H (70-105) Calcium (8.4-10.2) mg/dL Total Bilirubin 4.90 H (0.1-1.2) mg/dL Direct Bilirubin 3.9 H (0-0.2) mg/dL AST 6235 H (5-40) units/L ALT 924 H (7-56) units/L Total Protein 4.2 L D (6.3-8.2) g/dL Albumin 2.5 L (3.9-5) g/dL Crossmatch 03/10/19 03/10/19 03/10/19 Range/Units 05:58 08:12 09:26 RBC (3.65-5.03) M/mm3 Hgb (11.8-15.2) gm/dl Hct (35.5-45.6) % MCH (28-32) pg MCHC (32-34) % RDW (13.2-15.2) % Plt Count (140-440) K/mm3 Seg Neutrophils % (40.0-70.0) % Seg Neuts % (Manual) (40.0-70.0) % Lymphocytes % (Manual) (13.4-35.0) % Nucleated RBC % (0.0-0.9) % Lymphocytes # (Manual) (1.2-5.4) K/mm3 PT 29.3 H (12.2-14.9) Sec. INR 2.83 H (0.87-1.13) ABG pO2 (80.0-90.0) mm Hg ABG Hemoglobin (14.0-18.0) gm/dl Sodium (137-145) mmol/L Potassium (3.6-5.0) mmol/L Chloride (98-107) mmol/L BUN (9-20) mg/dL Creatinine (0.8-1.5) mg/dL Glucose (75-100) mg/dL POC Glucose 171 H 197 H (70-105) Calcium (8.4-10.2) mg/dL Total Bilirubin (0.1-1.2) mg/dL Direct Bilirubin (0-0.2) mg/dL AST (5-40) units/L ALT (7-56) units/L Total Protein (6.3-8.2) g/dL Albumin (3.9-5) g/dL Crossmatch 03/10/19 03/10/19 03/10/19 Range/Units 11:40 14:04 16:18 RBC (3.65-5.03) M/mm3 Hgb 6.7 L (11.8-15.2) gm/dl Hct 18.8 L* (35.5-45.6) % MCH (28-32) pg MCHC (32-34) % RDW (13.2-15.2) % Plt Count (140-440) K/mm3 Seg Neutrophils % (40.0-70.0) % Seg Neuts % (Manual) (40.0-70.0) % Lymphocytes % (Manual) (13.4-35.0) % Nucleated RBC % (0.0-0.9) % Lymphocytes # (Manual) (1.2-5.4) K/mm3 PT (12.2-14.9) Sec. INR (0.87-1.13) ABG pO2 (80.0-90.0) mm Hg ABG Hemoglobin (14.0-18.0) gm/dl Sodium (137-145) mmol/L Potassium (3.6-5.0) mmol/L Chloride (98-107) mmol/L BUN (9-20) mg/dL Creatinine (0.8-1.5) mg/dL Glucose (75-100) mg/dL POC Glucose 178 H 192 H (70-105) Calcium (8.4-10.2) mg/dL Total Bilirubin (0.1-1.2) mg/dL Direct Bilirubin (0-0.2) mg/dL AST (5-40) units/L ALT (7-56) units/L Total Protein (6.3-8.2) g/dL Albumin (3.9-5) g/dL Crossmatch
[2019-03-10] MEDS ORDERED: NACL 0.9% 500 ML 500 ML IV ONE (17:50)
[2019-03-10] MEDS: MIDAZOLAM 100 MG in NACL 0.9% 80 ML IV SCH (18:57)
[2019-03-10] MEDS: VERSED IV PRN (21:06)
[2019-03-10 22:11] LABS: Hematocrit 21.1 % (35.5-45.6); Hemoglobin 7.4 gm/dl (11.8-15.2)
[2019-03-11] MEDS: VERSED IV PRN ×2 (00:01→00:43)
[2019-03-11] MEDS: ZOSYN/NS 4.5GM/100ML 4.5 GM/100 ML VIAL IV SCH (02:00)
[2019-03-11] MEDS: DIPRIVAN 10 MG/ML 1,000 MG/100 ML BOTTLE IV SCH (03:01)
--- NOTE | 2019-03-11 04:08 | XRay Report ---
CHEST 1 VIEW 03/11/2019 2:23 AM INDICATION / CLINICAL INFORMATION: follow up respiratory failure. COMPARISON: Chest x-ray 03/10/2019 FINDINGS: SUPPORT DEVICES: ET tube and right internal jugular central line again project in expected position. HEART / MEDIASTINUM: No significant abnormality. LUNGS / PLEURA: Mild interstitial edema and small layering right pleural effusion have worsened. No p neumothorax. ADDITIONAL FINDINGS: No significant additional findings. IMPRESSION: 1. Worsening CHF Signer Name: Michael Soto MD Signed: 03/11/2019 4:03 AM Workstation Name: [email or web address]
[2019-03-11 04:30] LABS: Basophils % (Auto) 0.7 % (0.0-1.8); Eosinophils # (Auto) 0.2 K/mm3 (0.0-0.4); Eosinophils % (Auto) 2.7 % (0.0-4.3); Hematocrit 20.8 % (35.5-45.6); Hemoglobin 7.4 gm/dl (11.8-15.2); Lymphocytes # (Auto) 1.1 K/mm3 (1.2-5.4); Lymphocytes % (Auto) 17.4 % (13.4-35.0); Mean Corpuscular HGB Conc 36 % (32-34); Mean Corpuscular Volume 91 fl (84-94); Monocytes # (Auto) 0.4 K/mm3 (0.0-0.8); Monocytes % (Auto) 6.5 % (0.0-7.3); Red Blood Count 2.28 M/mm3 (3.65-5.03); Red Cell Distribution Width 18.4 % (13.2-15.2)
[2019-03-11] MEDS: D5W 1,000 ML IV SCH ×3 (04:41→21:31)
[2019-03-11 04:47] LABS: Platelet Count 38 K/mm3 (140-440)
[2019-03-11 04:56] LABS: Albumin 2.5 g/dL (3.9-5); Calcium 7.5 mg/dL (8.4-10.2)
[2019-03-11 05:18] LABS: ABG Base Excess -1.1 mmol/L (-2.0-3.0); ABG HCO3 22.8 mmol/L (20.0-26.0); ABG Methemoglobin 0.4 % (0.0-1.5); ABG Oxygen Saturation 96.7 % (95.0-99.0); ABG PCO2 32.3 mm Hg; ABG PH 7.467 pH Units (7.350-7.450); ABG PO2 69.6 mm Hg (80.0-90.0)
[2019-03-11] MEDS ORDERED: VITAMIN K (ADULT ONLY) SUB-Q NR (07:05)
--- NOTE | 2019-03-11 07:05 | Hem/Onc Progress Note ---
Assessment and Plan 1. Anemia. Hemoglobin was 3 secondary to gastrointestinal bleed. 2. Thrombocytopenia, likely secondary to consumption and liver disease. 3. Low fibrinogen and elevated PT, PTT, secondary to DIC/consumption. 4. Abnormal liver function test. 5. The patient's blood pressure was low and was on pressors. 6. Intubation. 7. History of cirrhosis. 8. History of alcohol usage and smoking. 9. Esophagogastroduodenoscopy showed varices, status post intervention. 10. The patient got octreotide infusion. 11. We will look into cryoprecipitate as fibrinogen level is low. His LFTs are normal. Vitamin k may not benefit, we have option of FFPs. There is a mention of chest x-ray for monitoring TRALI. Vit K trial - Patient Problems (1) Thrombocytopenia Current Visit: Yes Status: Acute Subjective Date of service: 03/11/19 Objective - Exam Narrative Exam: Pain - pt on vent General appearance intubated Performance status complete dependence Eyes - no icterus ENT - no bleeding - INTUBATED LNs cervical not palpable Neck - no LN Respiratory Normal Breath sounds - decreased air entry CVS S1 S2 + Extremities normal temperature General GI Rectal deferred male - deferred Skin warm Musculoskeletal - no movements Neurologically not responding - Constitutional Vitals: Last Vital Signs Temp 100.2 F H 03/11/19 04:00 Pulse 112 H 03/11/19 06:45 Resp 25 H 03/11/19 06:45 BP 89/41 03/11/19 06:45 Pulse Ox 100 03/11/19 06:45 - Labs Lab Results: Laboratory Results - last 24 hr 03/08/19 03/10/19 03/10/19 13:12 03:36 08:12 WBC 8.0 RBC 2.11 L Hgb 7.1 L Hct 19.7 L* MCV 93 MCH 34 H MCHC 36 H RDW 17.9 H Plt Count 45 L Lymph % (Auto) 18.8 Waldo % (Auto) 5.8 Eos % (Auto) 0.7 Baso % (Auto) 1.1 Lymph # 1.5 Waldo # 0.5 Eos # 0.1 Baso # 0.1 Add Manual Diff Complete Total Counted 100 Seg Neutrophils % 73.6 H Seg Neuts % (Manual) 90.0 H Band Neutrophils % 5.0 Lymphocytes % (Manual) 3.0 L Reactive Lymphs % (Man) 0 Monocytes % (Manual) 0 Eosinophils % (Manual) 2.0 Basophils % (Manual) 0 Metamyelocytes % 0 Myelocytes % 0 Promyelocytes % 0 Blast Cells % 0 Nucleated RBC % 3.0 H Seg Neutrophils # 5.9 Seg Neutrophils # Man 7.2 Band Neutrophils # 0.4 Lymphocytes # (Manual) 0.2 L Abs React Lymphs (Man) 0.0 Monocytes # (Manual) 0.0 Eosinophils # (Manual) 0.2 Basophils # (Manual) 0.0 Metamyelocytes # 0.0 Myelocytes # 0.0 Promyelocytes # 0.0 Blast Cells # 0.0 Hypersegmented Neuts Not Reportable Hyposegmented Neuts Not Reportable Hypogranular Neuts Not Reportable Smudge Cells Not Reportable Toxic Granulation Not Reportable Toxic Vacuolation Not Reportable Dohle Bodies Not Reportable Pelger-Huet Anomaly Not Reportable Meng Rods Not Reportable Platelet Estimate Consistent w auto Clumped Platelets Not Reportable Plt Clumps, EDTA Not Reportable Large Platelets Not Reportable Giant Platelets Not Reportable Platelet Satelliting Not Reportable Plt Morphology Comment Not Reportable RBC Morphology Not Reportable Dimorphic RBCs Not Reportable Polychromasia Few Hypochromasia Not Reportable Poikilocytosis Not Reportable Anisocytosis 1+ Microcytosis Not Reportable Macrocytosis Not Reportable Spherocytes Not Reportable Pappenheimer Bodies Not Reportable Sickle Cells Not Reportable Target Cells Not Reportable Tear Drop Cells Not Reportable Ovalocytes Not Reportable Helmet Cells Not Reportable [place] Bodies Not Reportable [place] Rings Not Reportable Nancie Cells Not Reportable Bite Cells Not Reportable Crenated Cell Not Reportable Elliptocytes Not Reportable Acanthocytes (Spur) Not Reportable Rouleaux Not Reportable Hemoglobin C Crystals Not Reportable Schistocytes Rare Malaria parasites Not Reportable Santy Bodies Not Reportable Hem Pathologist Commnt Sent to pathology PT INR ABG pH ABG pCO2 ABG pO2 ABG HCO3 ABG O2 Saturation ABG O2 Content ABG Base Excess ABG Hemoglobin ABG Carboxyhemoglobin ABG Methemoglobin Oxyhemoglobin FiO2 Sodium Potassium Chloride Carbon Dioxide Anion Gap BUN Creatinine Estimated GFR BUN/Creatinine Ratio Glucose POC Glucose 197 H Calcium Total Bilirubin AST ALT Alkaline Phosphatase Total Protein Albumin Albumin/Globulin Ratio Blood Type AB POSITIVE Antibody Screen Negative Crossmatch See Detail 03/10/19 03/10/19 03/10/19 09:26 11:40 14:04 WBC RBC Hgb 6.7 L Hct 18.8 L* MCV MCH MCHC RDW Plt Count Lymph % (Auto) Waldo % (Auto) Eos % (Auto) Baso % (Auto) Lymph # Waldo # Eos # Baso # Add Manual Diff Total Counted Seg Neutrophils % Seg Neuts % (Manual) Band Neutrophils % Lymphocytes % (Manual) Reactive Lymphs % (Man) Monocytes % (Manual) Eosinophils % (Manual) Basophils % (Manual) Metamyelocytes % Myelocytes % Promyelocytes % Blast Cells % Nucleated RBC % Seg Neutrophils # Seg Neutrophils # Man Band Neutrophils # Lymphocytes # (Manual) Abs React Lymphs (Man) Monocytes # (Manual) Eosinophils # (Manual) Basophils # (Manual) Metamyelocytes # Myelocytes # Promyelocytes # Blast Cells # Hypersegmented Neuts Hyposegmented Neuts Hypogranular Neuts Smudge Cells Toxic Granulation Toxic Vacuolation Dohle Bodies Pelger-Huet Anomaly Meng Rods Platelet Estimate Clumped Platelets Plt Clumps, EDTA Large Platelets Giant Platelets Platelet Satelliting Plt Morphology Comment RBC Morphology Dimorphic RBCs Polychromasia Hypochromasia Poikilocytosis Anisocytosis Microcytosis Macrocytosis Spherocytes Pappenheimer Bodies Sickle Cells Target Cells Tear Drop Cells Ovalocytes Helmet Cells [place] Bodies [place] Rings Nancie Cells Bite Cells Crenated Cell Elliptocytes Acanthocytes (Spur) Rouleaux Hemoglobin C Crystals Schistocytes Malaria parasites Santy Bodies Hem Pathologist Commnt PT 29.3 H INR 2.83 H ABG pH ABG pCO2 ABG pO2 ABG HCO3 ABG O2 Saturation ABG O2 Content ABG Base Excess ABG Hemoglobin ABG Carboxyhemoglobin ABG Methemoglobin Oxyhemoglobin FiO2 Sodium Potassium Chloride Carbon Dioxide Anion Gap BUN Creatinine Estimated GFR BUN/Creatinine Ratio Glucose POC Glucose 178 H Calcium Total Bilirubin AST ALT Alkaline Phosphatase Total Protein Albumin Albumin/Globulin Ratio Blood Type Antibody Screen Crossmatch 03/10/19 03/10/19 03/10/19 16:18 21:42 22:00 WBC RBC Hgb 7.4 L Hct 21.1 L MCV MCH MCHC RDW Plt Count Lymph % (Auto) Wal[place] % (Auto) Eos % (Auto) Baso % (Auto) Lymph # Waldo # Eos # Baso # Add Manual Diff Total Counted Seg Neutrophils % Seg Neuts % (Manual) Band Neutrophils % Lymphocytes % (Manual) Reactive Lymphs % (Man) Monocytes % (Manual) Eosinophils % (Manual) Basophils % (Manual) Metamyelocytes % Myelocytes % Promyelocytes % Blast Cells % Nucleated RBC % Seg Neutrophils # Seg Neutrophils # Man Band Neutrophils # Lymphocytes # (Manual) Abs React Lymphs (Man) Monocytes # (Manual) Eosinophils # (Manual) Basophils # (Manual) Metamyelocytes # Myelocytes # Promyelocytes # Blast Cells # Hypersegmented Neuts Hyposegmented Neuts Hypogranular Neuts Smudge Cells Toxic Granulation Toxic Vacuolation Dohle Bodies Pelger-Huet Anomaly Meng Rods Platelet Estimate Clumped Platelets Plt Clumps, EDTA Large Platelets Giant Platelets Platelet Satelliting Plt Morphology Comment RBC Morphology Dimorphic RBCs Polychromasia Hypochromasia Poikilocytosis Anisocytosis Microcytosis Macrocytosis Spherocytes Pappenheimer Bodies Sickle Cells Target Cells Tear Drop Cells Ovalocytes Helmet Cells [place] Bodies [place] Rings Nancie Cells Bite Cells Crenated Cell Elliptocytes Acanthocytes (Spur) Rouleaux Hemoglobin C Crystals Schistocytes Malaria parasites Santy Bodies Hem Pathologist Commnt PT INR ABG pH ABG pCO2 ABG pO2 ABG HCO3 ABG O2 Saturation ABG O2 Content ABG Base Excess ABG Hemoglobin ABG Carboxyhemoglobin ABG Methemoglobin Oxyhemoglobin FiO2 Sodium Potassium Chloride Carbon Dioxide Anion Gap BUN Creatinine Estimated GFR BUN/Creatinine Ratio Glucose POC Glucose 192 H 174 H Calcium Total Bilirubin AST ALT Alkaline Phosphatase Total Protein Albumin Albumin/Globulin Ratio Blood Type Antibody Screen Crossmatch 03/11/19 03/11/19 03/11/19 00:05 04:04 04:15 WBC RBC Hgb Hct MCV MCH MCHC RDW Plt Count Lymph % (Auto) Wal[place] % (Auto) Eos % (Auto) Baso % (Auto) Lymph # Waldo # Eos # Baso # Add Manual Diff Total Counted Seg Neutrophils % Seg Neuts % (Manual) Band Neutrophils % Lymphocytes % (Manual) Reactive Lymphs % (Man) Monocytes % (Manual) Eosinophils % (Manual) Basophils % (Manual) Metamyelocytes % Myelocytes % Promyelocytes % Blast Cells % Nucleated RBC % Seg Neutrophils # Seg Neutrophils # Man Band Neutrophils # Lymphocytes # (Manual) Abs React Lymphs (Man) Monocytes # (Manual) Eosinophils # (Manual) Basophils # (Manual) Metamyelocytes # Myelocytes # Promyelocytes # Blast Cells # Hypersegmented Neuts Hyposegmented Neuts Hypogranular Neuts Smudge Cells Toxic Granulation Toxic Vacuolation Dohle Bodies Pelger-Huet Anomaly Meng Rods Platelet Estimate Clumped Platelets Plt Clumps, EDTA Large Platelets Giant Platelets Platelet Satelliting Plt Morphology Comment RBC Morphology Dimorphic RBCs Polychromasia Hypochromasia Poikilocytosis Anisocytosis Microcytosis Macrocytosis Spherocytes Pappenheimer Bodies Sickle Cells Target Cells Tear Drop Cells Ovalocytes Helmet Cells [place] Bodies [place] Rings [place] Cells Bite Cells Crenated Cell Elliptocytes Acanthocytes (Spur) Rouleaux Hemoglobin C Crystals Schistocytes Malaria parasites Santy Bodies Hem Pathologist Commnt PT INR ABG pH ABG pCO2 ABG pO2 ABG HCO3 ABG O2 Saturation ABG O2 Content ABG Base Excess ABG Hemoglobin ABG Carboxyhemoglobin ABG Methemoglobin Oxyhemoglobin FiO2 Sodium 147 H Potassium 3.2 L Chloride 109.2 H Carbon Dioxide 23 Anion Gap 18 BUN 34 H Creatinine 5.0 H Estimated GFR 14 BUN/Creatinine Ratio 7 Glucose 132 H POC Glucose 136 H 133 H Calcium 7.5 L Total Bilirubin 7.40 H AST 3748 H ALT 864 H Alkaline Phosphatase 48 Total Protein 4.7 L Albumin 2.5 L Albumin/Globulin Ratio 1.1 Blood Type Antibody Screen Crossmatch 03/11/19 03/11/19 04:15 04:25 WBC 6.1 RBC 2.28 L Hgb 7.4 L Hct 20.8 L MCV 91 MCH 33 H MCHC 36 H RDW 18.4 H Plt Count 38 L Lymph % (Auto) 17.4 Waldo % (Auto) 6.5 Eos % (Auto) 2.7 Baso % (Auto) 0.7 Lymph # 1.1 L Waldo # 0.4 Eos # 0.2 Baso # 0.0 Add Manual Diff Total Counted Seg Neutrophils % 72.7 H Seg Neuts % (Manual) Band Neutrophils % Lymphocytes % (Manual) Reactive Lymphs % (Man) Monocytes % (Manual) Eosinophils % (Manual) Basophils % (Manual) Metamyelocytes % Myelocytes % Promyelocytes % Blast Cells % Nucleated RBC % Seg Neutrophils # 4.4 Seg Neutrophils # Man Band Neutrophils # Lymphocytes # (Manual) Abs React Lymphs (Man) Monocytes # (Manual) Eosinophils # (Manual) Basophils # (Manual) Metamyelocytes # Myelocytes # Promyelocytes # Blast Cells # Hypersegmented Neuts Hyposegmented Neuts Hypogranular Neuts Smudge Cells Toxic Granulation Toxic Vacuolation Dohle Bodies Pelger-Huet Anomaly Meng Rods Platelet Estimate Clumped Platelets Plt Clumps, EDTA Large Platelets Giant Platelets Platelet Satelliting Plt Morphology Comment RBC Morphology Dimorphic RBCs Polychromasia Hypochromasia Poikilocytosis Anisocytosis Microcytosis Macrocytosis Spherocytes Pappenheimer Bodies Sickle Cells Target Cells Tear Drop Cells Ovalocytes Helmet Cells [place] Bodies [place] Rings Nancie Cells Bite Cells Crenated Cell Elliptocytes Acanthocytes (Spur) Rouleaux Hemoglobin C Crystals Schistocytes Malaria parasites Santy Bodies Hem Pathologist Commnt PT INR ABG pH 7.467 H ABG pCO2 32.3 ABG pO2 69.6 L ABG HCO3 22.8 ABG O2 Saturation 96.7 ABG O2 Content 4.3 ABG Base Excess -1.1 ABG Hemoglobin 7.4 L ABG Carboxyhemoglobin 2.0 ABG Methemoglobin 0.4 Oxyhemoglobin 94.3 L FiO2 30 Sodium Potassium Chloride Carbon Dioxide Anion Gap BUN Creatinine Estimated GFR BUN/Creatinine Ratio Glucose POC Glucose Calcium Total Bilirubin AST ALT Alkaline Phosphatase Total Protein Albumin Albumin/Globulin Ratio Blood Type Antibody Screen Crossmatch Medications & Allergies - Medications Allergies/Adverse Reactions: Allergies No Known Allergies Allergy (Verified 03/08/19 12:31) Home Medications: Home Medications Medication Instructions Recorded Confirmed Last Taken Type No Known Home Medications [No 03/10/19 03/10/19 Unknown History Reported Home Medications] Active Medications: Generic Name Dose Route Start Last Admin Trade Name Freq PRN Reason Stop Dose Admin Acetaminophen 650 mg 03/09/19 13:00 03/10/19 15:17 Tylenol [place] 650 mg Q4H PRN Administration Pain, Mild (1-3) Albuterol 2.5 mg 03/08/19 14:56 Proventil IH Q3HRT PRN Shortness Of Breath Dextrose 50 ml 03/09/19 01:34 D50w (25gm) Syringe IV PRN PRN Hypoglycemia Hydrophilic Ointment 1 applic 03/08/19 22:51 Vaseline Lip Therapy TP Q2HR PRN Dry Lips Pantoprazole Sodium 80 mg/ 100 mls @ 10 mls/hr 03/08/19 14:00 03/10/19 21:14 Sodium Chloride IV 8 mg/hr DIRECT CHARLIE 10 mls/hr Administration 8 MG/HR Midazolam HCl 100 mg/ Sodium 100 mls @ 2 mls/hr 03/08/19 23:00 03/11/19 06:00 Chloride IV 1 mg/hr TITR CHARLIE 1 mls/hr Titration Protocol 2 MG/HR Norepinephrine 4 mg in 250 mls @ 7.5 mls/hr 03/09/19 04:00 03/09/19 16:15 Levophed Drip 4 Mg/Ns 250 Ml IV 0 mcg/min TITR CHARLIE 0 mls/hr Titration Protocol 2 MCG/MIN Vasopressin 20 unit/ Sodium 101 mls @ 9.09 mls/hr 03/09/19 06:00 03/11/19 04:30 Chloride IV Infused TITR CHARLIE Titration Protocol 0.03 UNITS/MIN Piperacillin Sod/Tazobactam Sod 4.5 gm in 100 mls @ 200 mls/hr 03/09/19 10:00 03/11/19 04:53 Zosyn/Ns 4.5gm/100ml IV Infused Q8H CHARLIE Infusion Protocol Phenylephrine HCl 100 mg/ 100 mls @ 3 mls/hr 03/09/19 08:45 03/10/19 10:51 Sodium Chloride IV 0 mcg/min TITR CHARLIE 0 mls/hr Titration Protocol 50 MCG/MIN Octreotide Acetate 500 mcg/ 101 mls @ 5.05 mls/hr 03/09/19 09:00 03/10/19 21:14 Sodium Chloride IV 25 mcg/hr TITR CHARLIE 5.05 mls/hr Administration Protocol 25 MCG/HR Dextrose 1,000 mls @ 125 mls/hr 03/10/19 10:00 03/11/19 04:41 D5w IV 125 mls/hr DIRECT CHARLIE Administration Sodium Chloride 500 mls @ 40 mls/hr 03/10/19 15:28 03/11/19 04:53 Nacl 0.9% 500 Ml IV 03/11/19 15:27 Infused ONCE CHARLIE Infusion Propofol 1,000 mg in 100 mls @ 2.61 mls/hr 03/11/19 02:00 03/11/19 06:45 Diprivan 10 Mg/Ml IV 5 mcg/kg/min TITR CHARLIE 2.61 mls/hr Titration Protocol 5 MCG/KG/MIN Lorazepam 2 mg 03/08/19 14:57 03/10/19 22:43 Ativan IV 2 mg Q1HR PRN Administration CISUSHMA-Ar 8-15 Metoclopramide HCl 10 mg 03/08/19 19:14 03/09/19 12:13 Reglan IV 10 mg Q6H PRN Administration Nausea And Vomiting Midazolam HCl 2 mg 03/08/19 22:51 03/11/19 00:43 Versed IV 2 mg Q10MIN PRN Administration Sedation Multi-Ingred Cream/Lotion/Oil/Oint 1 applic 03/08/19 22:51 Artificial Tears Ophth Oint OU Q4HR PRN Dry Eye(s) Sodium Chloride 10 ml 03/08/19 22:00 03/10/19 21:15 Sodium Chloride Flush Syringe 10 Ml IV 10 ml BID CHARLIE Administration Sodium Chloride 10 ml 03/08/19 14:56 Sodium Chloride Flush Syringe 10 Ml IV PRN PRN LINE FLUSH
--- NOTE | 2019-03-11 08:32 | Progress Note ---
Subjective Interval history: Patient was seen today for follow-up, on many renal related issues appears to be relatively more stable Intubated/ resting comfortably in bed in no agitation No acute distress Interdisciplinary notes were reviewed Vitals labs intake and output medications were reviewed from today Allergies: Reviewed Social history: Reviewed Family history: Reviewed Physical examination HEENT: Oral mucosa moist no pharyngeal erythema Neck: Supple no JVD Chest:bilateral diminished at lung bases Heart: Regular rate and rhythm S1-S2 heard no S3-S4 Abdomen: Soft nontender no renal bruit no CVA tenderness no suprapubic fullness Extremity: Mild edema dry skin no peripheral cyanosis pulses palpable Neurological: appears to be encephalopathic Musculoskeletal: No joint effusion noted Assessment and plan Acute kidney injury: Patient is relatively more stable for hemodialysis, discussed with patient's mother she agrees to proceed with hemodialysis discussed with patient's nurse, also discussed with dialysis nurse Meghan after dialyzing for 2 hours to see how he tolerates dialysis today If tolerated well patient can be considered for hemodialysis treatment tomorrow morning as well We will use albumin support, cooler dialysate, sodium modeling today with low blood flow Metabolic acidosis currently appears to be doing better Respiratory failure: Intubated/CAT scan shows no evidence of any obstruction Hypotension appears to be more stable today Hypokalemia: Use 4.0 potassium bath Current dialysis access is a central venous catheter Dialysis today only as tolerated Patient was seen and evaluated in critical care setting Please avoid Tylenol due to liver disease Patient is critically ill with GI bleed, large dysphagia versus,Possible septic shock and lactic acidosis alcohol abuse Prognosis guarded to poor, mortality risk in my opinion appears to be high More than 35 minutes was spent in direct patient care today Will continue to follow and make recommendation from renal standpoint Objective - Vital Signs Vital signs: Vital Signs - 12hr 03/10/19 03/10/19 03/10/19 20:33 20:45 21:00 Temperature 100.6 F H Pulse Rate 132 H 126 H 139 H Pulse Rate [ From Monitor] Respiratory 30 H 27 H 39 H Rate Blood Pressure 109/67 117/54 109/67 O2 Sat by Pulse 100 100 100 Oximetry 03/10/19 03/10/19 03/10/19 21:10 21:12 21:15 Temperature 100.5 F H Pulse Rate 132 H 131 H 129 H Pulse Rate [ From Monitor] Respiratory 32 H 32 H 32 H Rate Blood Pressure 109/67 97/43 124/54 O2 Sat by Pulse 100 100 100 Oximetry 03/10/19 03/10/19 03/10/19 21:23 21:30 21:45 Temperature Pulse Rate 124 H 122 H 129 H Pulse Rate [ From Monitor] Respiratory 29 H 28 H 34 H Rate Blood Pressure 124/54 115/50 135/64 O2 Sat by Pulse 100 100 100 Oximetry 03/10/19 03/10/19 03/10/19 22:00 22:15 22:30 Temperature Pulse Rate 127 H 123 H 131 H Pulse Rate [ From Monitor] Respiratory 29 H 26 H 36 H Rate Blood Pressure 120/45 112/46 105/47 O2 Sat by Pulse 98 100 100 Oximetry 03/10/19 03/10/19 03/10/19 22:45 23:00 23:15 Temperature Pulse Rate 130 H 158 H 131 H Pulse Rate [ From Monitor] Respiratory 30 H 40 H 29 H Rate Blood Pressure 101/41 101/41 92/41 O2 Sat by Pulse 98 95 99 Oximetry 03/10/19 03/10/19 03/11/19 23:30 23:45 00:00 Temperature 100.7 F H Pulse Rate 122 H 121 H 137 H Pulse Rate [ 125 H From Monitor] Respiratory 28 H 27 H 33 H Rate Blood Pressure 88/37 90/36 108/45 O2 Sat by Pulse 99 100 100 Oximetry 03/11/19 03/11/19 03/11/19 00:15 00:30 00:32 Temperature Pulse Rate 120 H 133 H 126 H Pulse Rate [ From Monitor] Respiratory 27 H 32 H Rate Blood Pressure 97/39 116/58 116/58 O2 Sat by Pulse 99 98 97 Oximetry 03/11/19 03/11/19 03/11/19 00:45 01:00 01:16 Temperature Pulse Rate 135 H 127 H 150 H Pulse Rate [ From Monitor] Respiratory 16 30 H 37 H Rate Blood Pressure 136/70 127/53 127/70 O2 Sat by Pulse 97 99 94 Oximetry 03/11/19 03/11/19 03/11/19 01:30 01:46 02:00 Temperature Pulse Rate 126 H 149 H 125 H Pulse Rate [ From Monitor] Respiratory 30 H 31 H 29 H Rate Blood Pressure 117/49 147/88 102/44 O2 Sat by Pulse 99 100 97 Oximetry 03/11/19 03/11/1919 02:15 02:30 02:46 Temperature Pulse Rate 127 H 133 H 137 H Pulse Rate [ From Monitor] Respiratory 31 H 33 H 39 H Rate Blood Pressure 107/48 117/50 143/61 O2 Sat by Pulse 98 99 99 Oximetry 03/11/19 03/11/19 03/11/19 03:00 03:15 03:30 Temperature Pulse Rate 128 H 119 H 112 H Pulse Rate [ From Monitor] Respiratory 29 H 24 23 Rate Blood Pressure 109/47 99/44 100/46 O2 Sat by Pulse 98 99 98 Oximetry 03/11/19 03/11/19 03/11/19 03:46 04:00 04:15 Temperature 100.2 F H Pulse Rate 133 H 114 H 117 H Pulse Rate [ 112 H From Monitor] Respiratory 39 H 26 H 29 H Rate Blood Pressure 146/75 122/67 132/72 O2 Sat by Pulse 98 100 98 Oximetry 03/11/19 03/11/19 03/11/19 04:24 04:30 04:45 Temperature Pulse Rate 126 H 130 H 118 H Pulse Rate [ From Monitor] Respiratory 40 H 27 H Rate Blood Pressure 116/58 121/73 119/52 O2 Sat by Pulse 97 99 100 Oximetry 03/11/19 03/11/19 03/11/19 05:00 05:15 05:30 Temperature Pulse Rate 114 H 116 H 113 H Pulse Rate [ From Monitor] Respiratory 24 26 H 26 H Rate Blood Pressure 104/43 112/49 101/40 O2 Sat by Pulse 100 100 100 Oximetry 03/11/19 03/11/19 03/11/19 05:45 06:00 06:16 Temperature Pulse Rate 119 H 117 H 124 H Pulse Rate [ From Monitor] Respiratory 26 H 26 H 33 H Rate Blood Pressure 109/48 115/44 117/61 O2 Sat by Pulse 100 100 100 Oximetry 03/11/19 03/11/19 03/11/19 06:30 06:45 07:00 Temperature Pulse Rate 113 H 112 H 112 H Pulse Rate [ From Monitor] Respiratory 25 H 25 H 26 H Rate Blood Pressure 106/41 89/41 88/40 O2 Sat by Pulse 100 100 100 Oximetry 03/11/19 03/11/19 03/11/19 07:15 07:30 07:46 Temperature Pulse Rate 114 H 114 H 126 H Pulse Rate [ From Monitor] Respiratory 26 H 26 H 34 H Rate Blood Pressure 106/53 103/51 107/59 O2 Sat by Pulse 100 100 99 Oximetry 03/11/19 03/11/19 07:52 08:00 Temperature Pulse Rate 118 H 116 H Pulse Rate [ From Monitor] Respiratory 25 H Rate Blood Pressure 107/59 106/53 O2 Sat by Pulse 100 100 Oximetry - Lab 03/16/19 06:00 03/16/19 06:00 Most recent lab results ABG pH 7.467 pH Units (7.350-7.450) H 03/11/19 04:25 ABG pCO2 32.3 mm Hg 03/11/19 04:25 ABG pO2 69.6 mm Hg (80.0-90.0) L 03/11/19 04:25 ABG HCO3 22.8 mmol/L (20.0-26.0) 03/11/19 04:25 ABG O2 Saturation 96.7 % (95.0-99.0) 03/11/19 04:25 Calcium 7.5 mg/dL (8.4-10.2) L 03/11/19 04:15 Phosphorus 8.60 mg/dL (2.5-4.5) H 03/08/19 22:43 Magnesium 2.30 mg/dL (1.7-2.3) 03/08/19 22:43 Medications & Allergies - Medications Allergies/Adverse Reactions: Allergies No Known Allergies Allergy (Verified 03/08/19 12:31) Home Medications: Home Medications Medication Instructions Recorded Confirmed Last Taken Type No Known Home Medications [No 03/10/19 03/10/19 Unknown History Reported Home Medications] Active Medications: Generic Name Dose Route Start Last Admin Trade Name Freq PRN Reason Stop Dose Admin Acetaminophen 650 mg 03/09/19 13:00 03/10/19 15:17 Tylenol [place] 650 mg Q4H PRN Administration Pain, Mild (1-3) Albuterol 2.5 mg 03/08/19 14:56 Proventil IH Q3HRT PRN Shortness Of Breath Dextrose 50 ml 03/09/19 01:34 D50w (25gm) Syringe IV PRN PRN Hypoglycemia Hydrophilic Ointment 1 applic 03/08/19 22:51 Vaseline Lip Therapy TP Q2HR PRN Dry Lips Pantoprazole Sodium 80 mg/ 100 mls @ 10 mls/hr 03/08/19 14:00 03/10/19 21:14 Sodium Chloride IV 8 mg/hr DIRECT CHARLIE 10 mls/hr Administration 8 MG/HR Midazolam HCl 100 mg/ Sodium 100 mls @ 2 mls/hr 03/08/19 23:00 03/11/19 06:00 Chloride IV 1 mg/hr TITR CHARLIE 1 mls/hr Titration Protocol 2 MG/HR Norepinephrine 4 mg in 250 mls @ 7.5 mls/hr 03/09/19 04:00 03/09/19 16:15 Levophed Drip 4 Mg/Ns 250 Ml IV 0 mcg/min TITR CHARLIE 0 mls/hr Titration Protocol 2 MCG/MIN Vasopressin 20 unit/ Sodium 101 mls @ 9.09 mls/hr 03/09/19 06:00 03/11/19 04:30 Chloride IV Infused TITR CHARLIE Titration Protocol 0.03 UNITS/MIN Phenylephrine HCl 100 mg/ 100 mls @ 3 mls/hr 03/09/19 08:45 03/10/19 10:51 Sodium Chloride IV 0 mcg/min TITR CHARLIE 0 mls/hr Titration Protocol 50 MCG/MIN Octreotide Acetate 500 mcg/ 101 mls @ 5.05 mls/hr 03/09/19 09:00 03/10/19 21:14 Sodium Chloride IV 25 mcg/hr TITR CHARLIE 5.05 mls/hr Administration Protocol 25 MCG/HR Dextrose 1,000 mls @ 125 mls/hr 03/10/19 10:00 03/11/19 04:41 D5w IV 125 mls/hr DIRECT CHARLIE Administration Sodium Chloride 500 mls @ 40 mls/hr 03/10/19 15:28 03/11/19 04:53 Nacl 0.9% 500 Ml IV 03/11/19 15:27 Infused ONCE CHARILE Infusion Propofol 1,000 mg in 100 mls @ 2.61 mls/hr 03/11/19 02:00 03/11/19 06:45 Diprivan 10 Mg/Ml IV 5 mcg/kg/min TITR CHARLIE 2.61 mls/hr Titration Protocol 5 MCG/KG/MIN Piperacillin Sod/Tazobactam Sod 2.25 gm in 50 mls @ 100 mls/hr 03/11/19 14:00 Zosyn/Ns 2.25 Gm/50ml IV Q8HR CHARLIE Lorazepam 2 mg 09/02/19 14:57 03/10/19 22:43 Ativan IV 2 mg Q1HR PRN Administration CIWA-Ar 8-15 Metoclopramide HCl 5 mg 03/11/19 09:00 Reglan IV Q6H PRN Nausea And Vomiting Midazolam HCl 2 mg 03/08/19 22:51 03/11/19 00:43 Versed IV 2 mg Q10MIN PRN Administration Sedation Multi-Ingred Cream/Lotion/Oil/Oint 1 applic 03/08/19 22:51 Artificial Tears Ophth Oint OU Q4HR PRN Dry Eye(s) Phytonadione 10 mg 03/11/19 07:05 Vitamin K (Adult Only) SUB-Q 03/11/19 09:00 ONCE NR Sodium Chloride 10 ml 03/08/19 22:00 03/10/19 21:15 Sodium Chloride Flush Syringe 10 Ml IV 10 ml BID CHARLIE Administration Sodium Chloride 10 ml 03/08/19 14:56 Sodium Chloride Flush Syringe 10 Ml IV PRN PRN LINE FLUSH
--- NOTE | 2019-03-11 08:48 | Progress Note ---
Assessment and Plan Acute GI bleed due to large esophageal varices, with hemorrhagic shock s/p EGD by GI, Acute hypoxemic respiratory failure on MVS Possible septic shock, temperature spike Severe lactic acidosis History of alcohol abuse disorder Acute renal failure, likley ATN Hypernatremia Alcoholic hepatic cirrhosis - stop versed - use fentanyl re: ? pain component to tachyarrythmia - target RASS 0 to -1 - prn metoprolol for puls >/= 130/min - to begin dialysis (s/p Vascath) - Continue with supportive blood transfusions depending on Hb level and rate of bleeding - Wean vasopressor support to keep MAP> 60-65 (monitor closely to keep blood pressure within range to allow for organ perfusion but avoid bleeding; prn lactate levels) - Monitor hemodynamics closely - VAP bundle addressed - wean FiO2 for sats > 90% at this point (Anemia improved) - Transfuse to keep HgB > 7g/dL, Platelets >/= 50K - DIC panel ordered and addressed - continue hoffman catheter - Hypotonic solutions to treat hypernatremia - continue CIWA protocol - PPI, therapeutic dosing, change continuous infusion to BID dosing once ok with G.I. team - continue Strict NPO for now (no NGT or OGT placement to avoid dislodging the bands) - begin daily SAT and SBT assessment as tolerated - Octreotide infusion for >/= 72 hours (will defere to G.I. team) - continue to avoid nephrotoxins, adjust all medications for GFR and CRCL - SCDs for VTE prophylaxis - continue accuchecks q4 with hypoglycemia protocol; target BG of 140-180 mg/dl acutely - continue to monitor for TRALI - continue other care per attending / other consultants ... re-evaluate in am & prn .....mother consoled at bedside and care plan discussed CONDITION: CRITIAL PROGNOSIS: GUARDED CODE STATUS: FULL CODE Discussed extensively with RT/RN and care team in ICU IDT rounds The high probability of a clinically significant, sudden or life threatening deterioration of the respiratory, gastroenterology/hepatology, renal systems required my full and direct attention, intervention and personal management. The aggregate critical care time was 35 minutes. This time is in addition to time spent performing reported procedures but includes the following: [x] Data Review and interpretation [x] Patient assessment and monitoring of vital signs [x] Documentation [x] Medication orders and management Subjective Date of service: 03/11/19 Principal diagnosis: Ac. GI bleed; hemorrhagic shock; Ac. hypoxemic resp fail ure; ADRIANNE likley ATN Interval history: Patient is seen today for: Ac. GI bleed (esophageal varices); hemorrhagic shock; Ac. hypoxemic resp failure; Possible septic shock; Severe lactic acidosis; H/O alcohol abuse disorder; Acute renal failure, likely ATN; Hypernatremia Seen and examined at bedside; 24hour events reviewed; nursing and respiratory care staff consulted; no adverse overnight events reported to me; resting in bed; sedated; mother in room; not following prompts well during SAT's and essentially delirious; no gross GI bleeding noted; still coagulopathic though; remains NPO; remains on octreotide and protonix. Objective Vital Signs - 12hr 03/10/19 03/10/19 03/10/19 21:00 21:10 21:12 Temperature 100.5 F H Pulse Rate 139 H 132 H 131 H Pulse Rate [ From Monitor] Respiratory 39 H 32 H 32 H Rate Blood Pressure 109/67 109/67 97/43 O2 Sat by Pulse 100 100 100 Oximetry 03/10/19 03/10/19 03/10/19 21:15 21:23 21:30 Temperature Pulse Rate 129 H 124 H 122 H Pulse Rate [ From Monitor] Respiratory 32 H 29 H 28 H Rate Blood Pressure 124/54 124/54 115/50 O2 Sat by Pulse 100 100 100 Oximetry 03/10/19 03/10/19 03/10/19 21:45 22:00 22:15 Temperature Pulse Rate 129 H 127 H 123 H Pulse Rate [ From Monitor] Respiratory 34 H 29 H 26 H Rate Blood Pressure 135/64 120/45 112/46 O2 Sat by Pulse 100 98 100 Oximetry 03/10/19 03/10/19 03/10/19 22:30 22:45 23:00 Temperature Pulse Rate 131 H 130 H 158 H Pulse Rate [ From Monitor] Respiratory 36 H 30 H 40 H Rate Blood Pressure 105/47 101/41 101/41 O2 Sat by Pulse 100 98 95 Oximetry 03/10/19 03/10/19 03/10/19 23:15 23:30 23:45 Temperature Pulse Rate 131 H 122 H 121 H Pulse Rate [ From Monitor] Respiratory 29 H 28 H 27 H Rate Blood Pressure 92/41 88/37 90/36 O2 Sat by Pulse 99 99 100 Oximetry 03/11/19 03/11/19 03/11/19 00:00 00:15 00:30 Temperature 100.7 F H Pulse Rate 137 H 120 H 133 H Pulse Rate [ 125 H From Monitor] Respiratory 33 H 27 H 32 H Rate Blood Pressure 108/45 97/39 116/58 O2 Sat by Pulse 100 99 98 Oximetry 03/11/19 03/11/19 03/11/19 00:32 00:45 01:00 Temperature Pulse Rate 126 H 135 H 127 H Pulse Rate [ From Monitor] Respiratory 16 30 H Rate Blood Pressure 116/58 136/70 127/53 O2 Sat by Pulse 97 97 99 Oximetry 03/11/19 03/11/19 03/11/19 01:16 01:30 01:46 Temperature Pulse Rate 150 H 126 H 149 H Pulse Rate [ From Monitor] Respiratory 37 H 30 H 31 H Rate Blood Pressure 127/70 117/49 147/88 O2 Sat by Pulse 94 99 100 Oximetry 03/11/19 03/11/19 03/11/19 02:00 02:15 02:30 Temperature Pulse Rate 125 H 127 H 133 H Pulse Rate [ From Monitor] Respiratory 29 H 31 H 33 H Rate Blood Pressure 102/44 107/48 117/50 O2 Sat by Pulse 97 98 99 Oximetry 03/11/19 03/11/19 03/11/19 02:46 03:00 03:15 Temperature Pulse Rate 137 H 128 H 119 H Pulse Rate [ From Monitor] Respiratory 39 H 29 H 24 Rate Blood Pressure 143/61 109/47 99/44 O2 Sat by Pulse 99 98 99 Oximetry 03/11/19 03/11/19 03/11/19 03:30 03:46 04:00 Temperature 100.2 F H Pulse Rate 112 H 133 H 114 H Pulse Rate [ 112 H From Monitor] Respiratory 23 39 H 26 H Rate Blood Pressure 100/46 146/75 122/67 O2 Sat by Pulse 98 98 100 Oximetry 03/11/19 03/11/19 03/11/19 04:15 04:24 04:30 Temperature Pulse Rate 117 H 126 H 130 H Pulse Rate [ From Monitor] Respiratory 29 H 40 H Rate Blood Pressure 132/72 116/58 121/73 O2 Sat by Pulse 98 97 99 Oximetry 03/11/19 03/11/19 03/11/19 04:45 05:00 05:15 Temperature Pulse Rate 118 H 114 H 116 H Pulse Rate [ From Monitor] Respiratory 27 H 24 26 H Rate Blood Pressure 119/52 104/43 112/49 O2 Sat by Pulse 100 100 100 Oximetry 03/11/19 03/11/19 03/11/19 05:30 05:45 06:00 Temperature Pulse Rate 113 H 119 H 117 H Pulse Rate [ From Monitor] Respiratory 26 H 26 H 26 H Rate Blood Pressure 101/40 109/48 115/44 O2 Sat by Pulse 100 100 100 Oximetry 03/11/19 03/11/19 03/11/19 06:16 06:30 06:45 Temperature Pulse Rate 124 H 113 H 112 H Pulse Rate [ From Monitor] Respiratory 33 H 25 H 25 H Rate Blood Pressure 117/61 106/41 89/41 O2 Sat by Pulse 100 100 100 Oximetry 03/11/19 03/11/19 03/11/19 07:00 07:15 07:30 Temperature Pulse Rate 112 H 114 H 114 H Pulse Rate [ From Monitor] Respiratory 26 H 26 H 26 H Rate Blood Pressure 88/40 106/53 103/51 O2 Sat by Pulse 100 100 100 Oximetry 03/11/19 03/11/19 03/11/19 07:46 07:52 08:00 Temperature Pulse Rate 126 H 118 H 116 H Pulse Rate [ From Monitor] Respiratory 34 H 25 H Rate Blood Pressure 107/59 107/59 106/53 O2 Sat by Pulse 99 100 100 Oximetry Constitutional: appears uncomfortable, other (young AM, normocephalic with mildly increased resp effort on MVS) Eyes: icteric ENT: oropharynx moist, other (ETT 23-24 cm YARED) Neck: supple, no lymphadenopathy, no JVD Effort: mildly labored Ascultation: Bilateral: diminished breath sounds, rhonchi Percussion: Bilateral: not dull Cardiovascular: regular rate and rhythm, other (Tachcardia, regular, S1,S2, no murmurs) Gastrointestinal: hypoactive bowel sounds, non-tender, non-distended Integumentary: normal Extremities: no cyanosis, no edema, cool, edema Neurologic: non-focal exam (grossly), unable to assess Psychiatric: other (unable to assess / delirious) CBC and BMP: 03/12/19 07:40 03/12/19 Unknown ABG, PT/INR, D-dimer: ABG POC ABG pH 7.375 (7.35-7.45) 03/09/19 02:02 ABG pH 7.467 pH Units (7.350-7.450) H 03/11/19 04:25 POC ABG pCO2 31.8 (35-45) L 03/09/19 02:02 ABG pCO2 32.3 mm Hg 03/11/19 04:25 POC ABG pO2 142 (80-105) H 03/09/19 02:02 ABG pO2 69.6 mm Hg (80.0-90.0) L 03/11/19 04:25 POC ABG HCO3 18.6 (22-26 mml/L) 03/09/19 02:02 POC ABG Total CO2 20 (23-27mmol/L) 03/09/19 02:02 POC ABG O2 Sat 99 03/09/19 02:02 ABG O2 Saturation 96.7 % (95.0-99.0) 03/11/19 04:25 PT/INR, D-dimer PT 29.3 Sec. (12.2-14.9) H 03/10/19 09:26 INR 2.83 (0.87-1.13) H 03/10/19 09:26 1494.02 ng/mlDDU (0-234) H 03/09/19 13:50 Abnormal lab findings: Abnormal Labs 03/08/19 03/08/19 03/08/19 09:34 12:57 12:59 WBC RBC 3.14 L Hgb 11.3 L Hct 33.3 L MCV 106 H MCH 36 H MCHC RDW 18.5 H Plt Count 61 L Lymph # Seg Neutrophils % Seg Neuts % (Manual) Lymphocytes % (Manual) 50.0 H Monocytes % (Manual) Nucleated RBC % Seg Neutrophils # Man Lymphocytes # (Manual) Monocytes # (Manual) PT 16.9 H INR 1.41 H APTT Fibrinogen D-Dimer POC ABG pH ABG pH POC ABG pCO2 POC ABG pO2 ABG pO2 ABG Hemoglobin Oxyhemoglobin Sodium Potassium Chloride Carbon Dioxide BUN Creatinine Glucose POC Glucose Lactic Acid Calcium Phosphorus Iron TIBC Total Bilirubin Direct Bilirubin AST ALT Total Protein Albumin Lipase Urine WBC (Auto) Plasma/Serum Alcohol 0.34 H Crossmatch 03/08/19 03/08/19 03/08/19 13:12 13:14 14:21 WBC RBC Hgb Hct MCV MCH MCHC RDW Plt Count Lymph # Seg Neutrophils % Seg Neuts % (Manual) Lymphocytes % (Manual) Monocytes % (Manual) Nucleated RBC % Seg Neutrophils # Man Lymphocytes # (Manual) Monocytes # (Manual) PT INR APTT Fibrinogen D-Dimer POC ABG pH ABG pH POC ABG pCO2 POC ABG pO2 ABG pO2 ABG Hemoglobin Oxyhemoglobin Sodium Potassium Chloride 89.4 L Carbon Dioxide 8 L* BUN Creatinine Glucose 74 L POC Glucose Lactic Acid Calcium Phosphorus Iron TIBC Total Bilirubin 4.70 H Direct Bilirubin AST 611 H ALT 153 H Total Protein Albumin Lipase Urine WBC (Auto) 18.0 H Plasma/Serum Alcohol Crossmatch See Detail 03/08/19 03/08/19 03/08/19 20:51 20:51 22:29 WBC 17.0 H RBC 2.21 L Hgb 8.0 L D Hct 26.8 L D MCV 121 H MCH 36 H MCHC 30 L RDW 20.5 H Plt Count 84 L Lymph # Seg Neutrophils % Seg Neuts % (Manual) 83.0 H Lymphocytes % (Manual) 8.0 L Monocytes % (Manual) 9.0 H Nucleated RBC % 1.0 H Seg Neutrophils # Man 14.1 H Lymphocytes # (Manual) Monocytes # (Manual) 1.5 H PT INR APTT Fibrinogen D-Dimer POC ABG pH ABG pH POC ABG pCO2 POC ABG pO2 ABG pO2 ABG Hemoglobin Oxyhemoglobin Sodium Potassium 7.0 H* D Chloride 90.7 L Carbon Dioxide 3 L* BUN Creatinine 1.6 H Glucose 60 L POC Glucose 48 L Lactic Acid Calcium 8.0 L Phosphorus Iron TIBC Total Bilirubin 5.00 H Direct Bilirubin AST 1815 H ALT 399 H Total Protein Albumin 3.7 L Lipase Urine WBC (Auto) Plasma/Serum Alcohol Crossmatch 03/08/19 03/08/19 03/08/19 22:43 23:00 23:10 WBC RBC Hgb Hct MCV MCH MCHC RDW Plt Count Lymph # Seg Neutrophils % Seg Neuts % (Manual) Lymphocytes % (Manual) Monocytes % (Manual) Nucleated RBC % Seg Neutrophils # Man Lymphocytes # (Manual) Monocytes # (Manual) PT INR APTT Fibrinogen D-Dimer POC ABG pH ABG pH POC ABG pCO2 POC ABG pO2 ABG pO2 ABG Hemoglobin Oxyhemoglobin Sodium Potassium 7.9 H* Chloride 86.4 L Carbon Dioxide 9 L* BUN Creatinine 1.7 H Glucose 314 H POC Glucose Lactic Acid 23.50 H* Calcium Phosphorus 8.60 H Iron TIBC Total Bilirubin Direct Bilirubin AST ALT Total Protein Albumin Lipase Urine WBC (Auto) Plasma/Serum Alcohol Crossmatch 03/08/19 03/09/19 03/09/19 23:50 00:00 00:31 WBC RBC Hgb Hct MCV MCH MCHC RDW Plt Count Lymph # Seg Neutrophils % Seg Neuts % (Manual) Lymphocytes % (Manual) Monocytes % (Manual) Nucleated RBC % Seg Neutrophils # Man Lymphocytes # (Manual) Monocytes # (Manual) PT INR APTT Fibrinogen D-Dimer POC ABG pH 7.120 L ABG pH POC ABG pCO2 30.7 L POC ABG pO2 130 H ABG pO2 ABG Hemoglobin Oxyhemoglobin Sodium Potassium 6.3 H* D Chloride 93.7 L Carbon Dioxide 11 L BUN 21 H Creatinine 1.7 H Glucose 219 H POC Glucose 206 H Lactic Acid Calcium 8.2 L Phosphorus Iron TIBC Total Bilirubin Direct Bilirubin AST ALT Total Protein Albumin Lipase Urine WBC (Auto) Plasma/Serum Alcohol Crossmatch 03/09/19 03/09/19 03/09/19 00:47 01:45 02:02 WBC RBC 1.72 L Hgb 6.3 L Hct 20.0 L D MCV 117 H MCH 37 H MCHC 31 L RDW 20.9 H Plt Count 62 L Lymph # Seg Neutrophils % Seg Neuts % (Manual) 93.0 H Lymphocytes % (Manual) 6.0 L Monocytes % (Manual) Nucleated RBC % 1.0 H Seg Neutrophils # Man 9.6 H Lymphocytes # (Manual) 0.6 L Monocytes # (Manual) PT INR APTT Fibrinogen D-Dimer POC ABG pH ABG pH POC ABG pCO2 31.8 L POC ABG pO2 142 H ABG pO2 ABG Hemoglobin Oxyhemoglobin Sodium Potassium Chloride Carbon Dioxide BUN Creatinine Glucose POC Glucose 182 H Lactic Acid Calcium Phosphorus Iron TIBC Total Bilirubin Direct Bilirubin AST ALT Total Protein Albumin Lipase Urine WBC (Auto) Plasma/Serum Alcohol Crossmatch 03/09/19 03/09/19 03/09/19 02:10 02:30 03:00 WBC RBC Hgb Hct MCV MCH MCHC RDW Plt Count Lymph # Seg Neutrophils % Seg Neuts % (Manual) Lymphocytes % (Manual) Monocytes % (Manual) Nucleated RBC % Seg Neutrophils # Man Lymphocytes # (Manual) Monocytes # (Manual) PT INR APTT Fibrinogen D-Dimer POC ABG pH ABG pH POC ABG pCO2 POC ABG pO2 ABG pO2 ABG Hemoglobin Oxyhemoglobin Sodium 150 H D Potassium Chloride Carbon Dioxide BUN Creatinine Glucose 177 H POC Glucose 178 H Lactic Acid Calcium 10.5 H D Phosphorus Iron 208 H TIBC 185 L Total Bilirubin Direct Bilirubin AST ALT Total Protein Albumin Lipase Urine WBC (Auto) Plasma/Serum Alcohol Crossmatch 03/09/19 03/09/19 03/09/19 04:16 05:46 07:47 WBC RBC 1.06 L Hgb 3.9 L* Hct 11.7 L* D MCV 111 H MCH 37 H MCHC RDW 20.0 H Plt Count 52 L Lymph # Seg Neutrophils % 79.1 H Seg Neuts % (Manual) Lymphocytes % (Manual) Monocytes % (Manual) Nucleated RBC % Seg Neutrophils # Man Lymphocytes # (Manual) Monocytes # (Manual) PT INR APTT Fibrinogen D-Dimer POC ABG pH ABG pH POC ABG pCO2 POC ABG pO2 ABG pO2 ABG Hemoglobin Oxyhemoglobin Sodium Potassium Chloride Carbon Dioxide BUN Creatinine Glucose POC Glucose 201 H 176 H Lactic Acid Calcium Phosphorus Iron TIBC Total Bilirubin Direct Bilirubin AST ALT Total Protein Albumin Lipase Urine WBC (Auto) Plasma/Serum Alcohol Crossmatch 03/09/19 03/09/19 03/09/19 07:48 07:48 13:50 WBC RBC 2.69 L Hgb 8.9 L D Hct 25.8 L D MCV 96 H MCH 33 H MCHC 35 H RDW 17.1 H Plt Count 49 L Lymph # Seg Neutrophils % 79.1 H Seg Neuts % (Manual) Lymphocytes % (Manual) Monocytes % (Manual) Nucleated RBC % Seg Neutrophils # Man Lymphocytes # (Manual) Monocytes # (Manual) PT INR APTT Fibrinogen D-Dimer POC ABG pH ABG pH POC ABG pCO2 POC ABG pO2 ABG pO2 ABG Hemoglobin Oxyhemoglobin Sodium 154 H Potassium Chloride 111.2 H Carbon Dioxide 18 L BUN 22 H Creatinine 2.1 H Glucose 131 H POC Glucose Lactic Acid 19.10 H* Calcium Phosphorus Iron TIBC Total Bilirubin Direct Bilirubin AST ALT Total Protein Albumin Lipase Urine WBC (Auto) Plasma/Serum Alcohol Crossmatch 03/09/19 03/09/19 03/09/19 13:50 14:20 16:08 WBC RBC Hgb Hct MCV MCH MCHC RDW Plt Count Lymph # Seg Neutrophils % Seg Neuts % (Manual) Lymphocytes % (Manual) Monocytes % (Manual) Nucleated RBC % Seg Neutrophils # Man Lymphocytes # (Manual) Monocytes # (Manual) PT 28.2 H INR 2.70 H APTT 41.8 H Fibrinogen 81 L* D-Dimer 1494.02 H POC ABG pH ABG pH POC ABG pCO2 POC ABG pO2 ABG pO2 ABG Hemoglobin Oxyhemoglobin Sodium Potassium Chloride Carbon Dioxide BUN Creatinine Glucose POC Glucose 188 H 235 H Lactic Acid Calcium Phosphorus Iron TIBC Total Bilirubin Direct Bilirubin AST ALT Total Protein Albumin Lipase Urine WBC (Auto) Plasma/Serum Alcohol Crossmatch 03/09/19 03/09/19 03/09/19 17:55 23:26 Unknown WBC RBC Hgb Hct MCV MCH MCHC RDW Plt Count Lymph # Seg Neutrophils % Seg Neuts % (Manual) Lymphocytes % (Manual) Monocytes % (Manual) Nucleated RBC % Seg Neutrophils # Man Lymphocytes # (Manual) Monocytes # (Manual) PT INR APTT Fibrinogen D-Dimer POC ABG pH ABG pH POC ABG pCO2 POC ABG pO2 ABG pO2 ABG Hemoglobin Oxyhemoglobin Sodium Potassium Chloride Carbon Dioxide BUN Creatinine Glucose POC Glucose 233 H 236 H Lactic Acid Calcium Phosphorus Iron TIBC Total Bilirubin Direct Bilirubin AST ALT Total Protein Albumin Lipase 385 H Urine WBC (Auto) Plasma/Serum Alcohol Crossmatch 03/10/19 03/10/19 03/10/19 00:04 03:36 03:36 WBC RBC 2.11 L Hgb 7.8 L 7.1 L Hct 22.0 L 19.7 L* MCV MCH 34 H MCHC 36 H RDW 17.9 H Plt Count 45 L Lymph # Seg Neutrophils % 73.6 H Seg Neuts % (Manual) 90.0 H Lymphocytes % (Manual) 3.0 L Monocytes % (Manual) Nucleated RBC % 3.0 H Seg Neutrophils # Man Lymphocytes # (Manual) 0.2 L Monocytes # (Manual) PT INR APTT Fibrinogen D-Dimer POC ABG pH ABG pH POC ABG pCO2 POC ABG pO2 ABG pO2 ABG Hemoglobin Oxyhemoglobin Sodium 150 H Potassium 3.3 L D Chloride 113.2 H Carbon Dioxide BUN 30 H Creatinine 3.4 H D Glucose 196 H POC Glucose Lactic Acid Calcium 8.2 L Phosphorus Iron TIBC Total Bilirubin Direct Bilirubin AST ALT Total Protein Albumin Lipase Urine WBC (Auto) Plasma/Serum Alcohol Crossmatch 03/10/19 03/10/19 03/10/19 03:36 03:53 03:56 WBC RBC Hgb Hct MCV MCH MCHC RDW Plt Count Lymph # Seg Neutrophils % Seg Neuts % (Manual) Lymphocytes % (Manual) Monocytes % (Manual) Nucleated RBC % Seg Neutrophils # Man Lymphocytes # (Manual) Monocytes # (Manual) PT INR APTT Fibrinogen D-Dimer POC ABG pH ABG pH POC ABG pCO2 POC ABG pO2 ABG pO2 94.7 H ABG Hemoglobin 6.5 L Oxyhemoglobin Sodium Potassium Chloride Carbon Dioxide BUN Creatinine Glucose POC Glucose 212 H Lactic Acid Calcium Phosphorus Iron TIBC Total Bilirubin 4.90 H Direct Bilirubin 3.9 H AST 6235 H ALT 924 H Total Protein 4.2 L D Albumin 2.5 L Lipase Urine WBC (Auto) Plasma/Serum Alcohol Crossmatch 03/10/19 03/10/19 03/10/19 05:58 08:12 09:26 WBC RBC Hgb Hct MCV MCH MCHC RDW Plt Count Lymph # Seg Neutrophils % Seg Neuts % (Manual) Lymphocytes % (Manual) Monocytes % (Manual) Nucleated RBC % Seg Neutrophils # Man Lymphocytes # (Manual) Monocytes # (Manual) PT 29.3 H INR 2.83 H APTT Fibrinogen D-Dimer POC ABG pH ABG pH POC ABG pCO2 POC ABG pO2 ABG pO2 ABG Hemoglobin Oxyhemoglobin Sodium Potassium Chloride Carbon Dioxide BUN Creatinine Glucose POC Glucose 171 H 197 H Lactic Acid Calcium Phosphorus Iron TIBC Total Bilirubin Direct Bilirubin AST ALT Total Protein Albumin Lipase Urine WBC (Auto) Plasma/Serum Alcohol Crossmatch 03/10/19 03/10/19 03/10/19 11:40 14:04 16:18 WBC RBC Hgb 6.7 L Hct 18.8 L* MCV MCH MCHC RDW Plt Count Lymph # Seg Neutrophils % Seg Neuts % (Manual) Lymphocytes % (Manual) Monocytes % (Manual) Nucleated RBC % Seg Neutrophils # Man Lymphocytes # (Manual) Monocytes # (Manual) PT INR APTT Fibrinogen D-Dimer POC ABG pH ABG pH POC ABG pCO2 POC ABG pO2 ABG pO2 ABG Hemoglobin Oxyhemoglobin Sodium Potassium Chloride Carbon Dioxide BUN Creatinine Glucose POC Glucose 178 H 192 H Lactic Acid Calcium Phosphorus Iron TIBC Total Bilirubin Direct Bilirubin AST ALT Total Protein Albumin Lipase Urine WBC (Auto) Plasma/Serum Alcohol Crossmatch 03/10/19 03/10/19 03/11/19 21:42 22:00 00:05 WBC RBC Hgb 7.4 L Hct 21.1 L MCV MCH MCHC RDW Plt Count Lymph # Seg Neutrophils % Seg Neuts % (Manual) Lymphocytes % (Manual) Monocytes % (Manual) Nucleated RBC % Seg Neutrophils # Man Lymphocytes # (Manual) Monocytes # (Manual) PT INR APTT Fibrinogen D-Dimer POC ABG pH ABG pH POC ABG pCO2 POC ABG pO2 ABG pO2 ABG Hemoglobin Oxyhemoglobin Sodium Potassium Chloride Carbon Dioxide BUN Creatinine Glucose POC Glucose 174 H 136 H Lactic Acid Calcium Phosphorus Iron TIBC Total Bilirubin Direct Bilirubin AST ALT Total Protein Albumin Lipase Urine WBC (Auto) Plasma/Serum Alcohol Crossmatch 03/11/19 03/11/19 03/11/19 04:04 04:15 04:15 WBC RBC 2.28 L Hgb 7.4 L Hct 20.8 L MCV MCH 33 H MCHC 36 H RDW 18.4 H Plt Count 38 L Lymph # 1.1 L Seg Neutrophils % 72.7 H Seg Neuts % (Manual) Lymphocytes % (Manual) Monocytes % (Manual) Nucleated RBC % Seg Neutrophils # Man Lymphocytes # (Manual) Monocytes # (Manual) PT INR APTT Fibrinogen D-Dimer POC ABG pH ABG pH POC ABG pCO2 POC ABG pO2 ABG pO2 ABG Hemoglobin Oxyhemoglobin Sodium 147 H Potassium 3.2 L Chloride 109.2 H Carbon Dioxide BUN 34 H Creatinine 5.0 H Glucose 132 H POC Glucose 133 H Lactic Acid Calcium 7.5 L Phosphorus Iron TIBC Total Bilirubin 7.40 H Direct Bilirubin AST 3748 H ALT 864 H Total Protein 4.7 L Albumin 2.5 L Lipase Urine WBC (Auto) Plasma/Serum Alcohol Crossmatch 03/11/19 03/11/19 04:25 08:28 WBC RBC Hgb Hct MCV MCH MCHC RDW Plt Count Lymph # Seg Neutrophils % Seg Neuts % (Manual) Lymphocytes % (Manual) Monocytes % (Manual) Nucleated RBC % Seg Neutrophils # Man Lymphocytes # (Manual) Monocytes # (Manual) PT INR APTT Fibrinogen D-Dimer POC ABG pH ABG pH 7.467 H POC ABG pCO2 POC ABG pO2 ABG pO2 69.6 L ABG Hemoglobin 7.4 L Oxyhemoglobin 94.3 L Sodium Potassium Chloride Carbon Dioxide BUN Creatinine Glucose POC Glucose 128 H Lactic Acid Calcium Phosphorus Iron TIBC Total Bilirubin Direct Bilirubin AST ALT Total Protein Albumin Lipase Urine WBC (Auto) Plasma/Serum Alcohol Crossmatch Chest x-ray: image reviewed (RIJ CVL; + layering pleural effusions; mild int erstitial edema) Allied health notes reviewed: nursing
[2019-03-11] MEDS: PROTONIX 80 MG in NACL 0.9% 100 ML IV SCH ×2 (08:49→20:05)
[2019-03-11] MEDS ORDERED: REGLAN IV PRN (09:00)
[2019-03-11] MEDS: SODIUM CHLORIDE FLUSH SYRINGE 10 ML IV SCH ×2 (10:21→21:32)
--- NOTE | 2019-03-11 11:46 | Operative Report ---
Operative Report Operative Report: Exam: Ultrasound-guided placement of Vascath Clinical indication: Patient with acute renal failure requiring dialysis access Date: 03/11/2019 Procedure: Following an explanation of the risks, benefits and alternatives; written informed consent was obtained and the patient's next of kin. The procedure was performed at bedside in the ICU. Initial ultrasound evaluation of his right groin demonstrated a patent right common femoral vein. The patient's right groin was prepped and draped in usual sterile fashion. 1% lidocaine was used for anesthesia. Under ultrasound guidance, the right common femoral vein was cannulated with a 7 cm 18 guage needle. A 0.035 guidewire was advanced centrally. The needle was removed. Following serial dilation over the guidewire, a 30 cm dialysis catheter was advanced over the guidewire centrally easily. The guidewire was removed. Nonpulsatile blood return from all 3 ports. The catheter was securely flushed and locked with sterile saline. The catheter was fastened to the skin surface using 2-0 nylon suture and a pressure dressing applied. The patient tolerated the procedure well. There were no immediate postprocedure complications. Impression: Ultrasound guided placement of Vascath via the right common femoral vein.
[2019-03-11] MEDS ORDERED: ZOSYN/NS 2.25 GM/50ML 2.25 GM/50 ML BAG IV SCH (12:00)
[2019-03-11] MEDS: ZOSYN/NS 2.25 GM/50ML 2.25 GM/50 ML BAG IV SCH ×2 (14:30→21:31)
--- NOTE | 2019-03-11 14:52 | Progress Note ---
Assessment and Plan Acute renal failure, likely ATN - cont iv fluid, nephrology consulted - renal function not improving, minimal urine outpt - plan to start on HD today, vascular consulted for vascath Acute GI bleed due to large esophageal varices - s/p EGD by GI on 03/09, findings are following 1. A pool of blood in the fundus and cardia, not completely cleared out. 2. Blood in the distal esophagus. 3. 3-4 columns of large varices in the mid and distal esophagus. Variceal banding ligation performed with 5 bands placed successfully. 4. No obvious signs of gastric varices noted. 5. No other obvious source of bleeding noted in the stomach or the examined portion of the duodenum. -Per GI Continue with PPI IV and octreotide drip x 76 hr. - s/p 4 units PRBC transfusion, cont to monitor h/h /Acute blood loss anemia, - Due to bleeding esophageal varises and DIC - s/p 4 units blood transfusion, monitor h/h Hypertensive vs septic shock due to acute blood loss - on pressors, s/p blood transfusion, cont iv fluid - cont abx, follow cx - wean off pressor as tolerated DIC, s/p FFP and cryoprecipitate transfusion, consult Dr Sparks - monitor PT/INR history of alcohol abuse, placed on versad Acute respiratory failure, cont nebs, CC consulted SIRS versus sepsis with severe lactic acidosis and leukocytosis - chopra Cx, cont abx till Cx negative Hyperkalemia, resolved Hypernatremia, cont iv fluid, monitor BMP Elevated LFT, from alcoholic LD, cont to trend Alcoholic hepatic cirrhosis, GI following, monitor LFT Coagulopathy, due to hepatic cirrhosis, monitor PT/INR DVT Px, SCD - Patient is critically ill with a very poor prognosis The high probability of a clinically significant, sudden or life threatening deterioration of the [multiple] system(s) required my full and direct attention, intervention and personal management. The aggregate critical care time was [45] minutes. This time is in addition to time spent performing reported procedures but includes the following: [x] Data Review and interpretation [x] Patient assessment and monitoring of vital signs [x] Documentation [x] Medication orders and management Subjective Date of service: 03/11/19 Interval history: patient seen and examined Intubated, sedated Mother at bedside - updated Cr cont to trend up Objective - Exam Narrative Exam: General appearance: Present: intubated - EENT Eyes: PERRL, EOM intact ENT: other, no thrush Ears: bilateral: normal - Neck Neck: supple, normal ROM - Respiratory Respiratory effort: normal Respiratory: bilateral: CTA - Breasts Breasts: normal - Cardiovascular Rhythm: regular Heart Sounds: Present: S1 & S2. Absent: gallop, rub Extremities: pulses intact, No edema, normal color, Full ROM - Gastrointestinal General gastrointestinal: Present: soft, non-tender, non-distended, normal bowel sounds - Genitourinary Male genitourinary: normal - Integumentary Integumentary: clear, warm, dry - Musculoskeletal Musculoskeletal: other (no joint swelling) - Neurologic Neurologic: moves all extremities - Psychiatric Psychiatric: other (unable to assess - on vent) - Constitutional Vitals: Vital Signs - 12hr 03/11/19 03/11/19 03/11/19 03:00 03:15 03:30 Temperature Pulse Rate 128 H 119 H 112 H Pulse Rate [ From Monitor] Pulse Rate [ Intra-Procedure ] Pulse Rate [ Post-Procedure] Pulse Rate [Pre -Procedure] Respiratory 29 H 24 23 Rate Respiratory Rate [Intra- Procedure] Respiratory Rate [Post- Procedure] Respiratory Rate [Pre- Procedure] Blood Pressure 109/47 99/44 100/46 Blood Pressure [Intra- Procedure] Blood Pressure [Post-Procedure ] Blood Pressure [Pre-Procedure] O2 Sat by Pulse 98 99 98 Oximetry O2 Sat by Pulse Oximetry [ Intra-Procedure ] O2 Sat by Pulse Oximetry [Post -Procedure] O2 Sat by Pulse Oximetry [Pre- Procedure] 03/11/19 03/11/19 03/11/19 03:46 04:00 04:15 Temperature 100.2 F H Pulse Rate 133 H 114 H 117 H Pulse Rate [ 112 H From Monitor] Pulse Rate [ Intra-Procedure ] Pulse Rate [ Post-Procedure] Pulse Rate [Pre -Procedure] Respiratory 39 H 26 H 29 H Rate Respiratory Rate [Intra- Procedure] Respiratory Rate [Post- Procedure] Respiratory Rate [Pre- Procedure] Blood Pressure 146/75 122/67 132/72 Blood Pressure [Intra- Procedure] Blood Pressure [Post-Procedure ] Blood Pressure [Pre-Procedure] O2 Sat by Pulse 98 100 98 Oximetry O2 Sat by Pulse Oximetry [ Intra-Procedure ] O2 Sat by Pulse Oximetry [Post -Procedure] O2 Sat by Pulse Oximetry [Pre- Procedure] 03/11/19 03/11/19 03/11/19 04:24 04:30 04:45 Temperature Pulse Rate 126 H 130 H 118 H Pulse Rate [ From Monitor] Pulse Rate [ Intra-Procedure ] Pulse Rate [ Post-Procedure] Pulse Rate [Pre -Procedure] Respiratory 40 H 27 H Rate Respiratory Rate [Intra- Procedure] Respiratory Rate [Post- Procedure] Respiratory Rate [Pre- Procedure] Blood Pressure 116/58 121/73 119/52 Blood Pressure [Intra- Procedure] Blood Pressure [Post-Procedure ] Blood Pressure [Pre-Procedure] O2 Sat by Pulse 97 99 100 Oximetry O2 Sat by Pulse Oximetry [ Intra-Procedure ] O2 Sat by Pulse Oximetry [Post -Procedure] O2 Sat by Pulse Oximetry [Pre- Procedure] 03/11/19 03/11/19 03/11/19 05:00 05:15 05:30 Temperature Pulse Rate 114 H 116 H 113 H Pulse Rate [ From Monitor] Pulse Rate [ Intra-Procedure ] Pulse Rate [ Post-Procedure] Pulse Rate [Pre -Procedure] Respiratory 24 26 H 26 H Rate Respiratory Rate [Intra- Procedure] Respiratory Rate [Post- Procedure] Respiratory Rate [Pre- Procedure] Blood Pressure 104/43 112/49 101/40 Blood Pressure [Intra- Procedure] Blood Pressure [Post-Procedure ] Blood Pressure [Pre-Procedure] O2 Sat by Pulse 100 100 100 Oximetry O2 Sat by Pulse Oximetry [ Intra-Procedure ] O2 Sat by Pulse Oximetry [Post -Procedure] O2 Sat by Pulse Oximetry [Pre- Procedure] 03/11/19 03/11/19 03/11/19 05:45 06:00 06:16 Temperature Pulse Rate 119 H 117 H 124 H Pulse Rate [ From Monitor] Pulse Rate [ Intra-Procedure ] Pulse Rate [ Post-Procedure] Pulse Rate [Pre -Procedure] Respiratory 26 H 26 H 33 H Rate Respiratory Rate [Intra- Procedure] Respiratory Rate [Post- Procedure] Respiratory Rate [Pre- Procedure] Blood Pressure 109/48 115/44 117/61 Blood Pressure [Intra- Procedure] Blood Pressure [Post-Procedure ] Blood Pressure [Pre-Procedure] O2 Sat by Pulse 100 100 100 Oximetry O2 Sat by Pulse Oximetry [ Intra-Procedure ] O2 Sat by Pulse Oximetry [Post -Procedure] O2 Sat by Pulse Oximetry [Pre- Procedure] 03/11/19 03/11/19 03/11/19 06:30 06:45 07:00 Temperature Pulse Rate 113 H 112 H 112 H Pulse Rate [ From Monitor] Pulse Rate [ Intra-Procedure ] Pulse Rate [ Post-Procedure] Pulse Rate [Pre -Procedure] Respiratory 25 H 25 H 26 H Rate Respiratory Rate [Intra- Procedure] Respiratory Rate [Post- Procedure] Respiratory Rate [Pre- Procedure] Blood Pressure 106/41 89/41 88/40 Blood Pressure [Intra- Procedure] Blood Pressure [Post-Procedure ] Blood Pressure [Pre-Procedure] O2 Sat by Pulse 100 100 100 Oximetry O2 Sat by Pulse Oximetry [ Intra-Procedure ] O2 Sat by Pulse Oximetry [Post -Procedure] O2 Sat by Pulse Oximetry [Pre- Procedure] 03/11/19 03/11/19 03/11/19 07:15 07:30 07:46 Temperature Pulse Rate 114 H 114 H 126 H Pulse Rate [ From Monitor] Pulse Rate [ Intra-Procedure ] Pulse Rate [ Post-Procedure] Pulse Rate [Pre -Procedure] Respiratory 26 H 26 H 34 H Rate Respiratory Rate [Intra- Procedure] Respiratory Rate [Post- Procedure] Respiratory Rate [Pre- Procedure] Blood Pressure 106/53 103/51 107/59 Blood Pressure [Intra- Procedure] Blood Pressure [Post-Procedure ] Blood Pressure [Pre-Procedure] O2 Sat by Pulse 100 100 99 Oximetry O2 Sat by Pulse Oximetry [ Intra-Procedure ] O2 Sat by Pulse Oximetry [Post -Procedure] O2 Sat by Pulse Oximetry [Pre- Procedure] 03/11/19 03/11/19 03/11/19 07:52 08:00 08:16 Temperature 99.4 F Pulse Rate 118 H 116 H 126 H Pulse Rate [ 114 H From Monitor] Pulse Rate [ Intra-Procedure ] Pulse Rate [ Post-Procedure] Pulse Rate [Pre -Procedure] Respiratory 22 34 H Rate Respiratory Rate [Intra- Procedure] Respiratory Rate [Post- Procedure] Respiratory Rate [Pre- Procedure] Blood Pressure 107/59 106/53 135/60 Blood Pressure [Intra- Procedure] Blood Pressure [Post-Procedure ] Blood Pressure [Pre-Procedure] O2 Sat by Pulse 100 100 100 Oximetry O2 Sat by Pulse Oximetry [ Intra-Procedure ] O2 Sat by Pulse Oximetry [Post -Procedure] O2 Sat by Pulse Oximetry [Pre- Procedure] 03/11/19 03/11/19 03/11/19 08:30 08:45 09:00 Temperature Pulse Rate 113 H 114 H 120 H Pulse Rate [ From Monitor] Pulse Rate [ Intra-Procedure ] Pulse Rate [ Post-Procedure] Pulse Rate [Pre -Procedure] Respiratory 26 H 26 H 27 H Rate Respiratory Rate [Intra- Procedure] Respiratory Rate [Post- Procedure] Respiratory Rate [Pre- Procedure] Blood Pressure 109/52 102/51 117/51 Blood Pressure [Intra- Procedure] Blood Pressure [Post-Procedure ] Blood Pressure [Pre-Procedure] O2 Sat by Pulse 100 100 100 Oximetry O2 Sat by Pulse Oximetry [ Intra-Procedure ] O2 Sat by Pulse Oximetry [Post -Procedure] O2 Sat by Pulse Oximetry [Pre- Procedure] 03/11/19 03/11/19 03/11/19 09:15 09:30 09:36 Temperature Pulse Rate 117 H 122 H 118 H Pulse Rate [ From Monitor] Pulse Rate [ Intra-Procedure ] Pulse Rate [ Post-Procedure] Pulse Rate [Pre -Procedure] Respiratory 26 H 28 H 27 H Rate Respiratory Rate [Intra- Procedure] Respiratory Rate [Post- Procedure] Respiratory Rate [Pre- Procedure] Blood Pressure 114/60 113/55 113/55 Blood Pressure [Intra- Procedure] Blood Pressure [Post-Procedure ] Blood Pressure [Pre-Procedure] O2 Sat by Pulse 100 100 100 Oximetry O2 Sat by Pulse Oximetry [ Intra-Procedure ] O2 Sat by Pulse Oximetry [Post -Procedure] O2 Sat by Pulse Oximetry [Pre- Procedure] 03/11/19 03/11/19 03/11/19 09:40 09:45 09:50 Temperature Pulse Rate 119 H 117 H 115 H Pulse Rate [ From Monitor] Pulse Rate [ Intra-Procedure ] Pulse Rate [ Post-Procedure] Pulse Rate [Pre -Procedure] Respiratory 25 H 26 H 25 H Rate Respiratory Rate [Intra- Procedure] Respiratory Rate [Post- Procedure] Respiratory Rate [Pre- Procedure] Blood Pressure 113/55 115/60 115/60 Blood Pressure [Intra- Procedure] Blood Pressure [Post-Procedure ] Blood Pressure [Pre-Procedure] O2 Sat by Pulse 100 100 100 Oximetry O2 Sat by Pulse Oximetry [ Intra-Procedure ] O2 Sat by Pulse Oximetry [Post -Procedure] O2 Sat by Pulse Oximetry [Pre- Procedure] 03/11/19 03/11/19 03/11/19 09:56 10:00 10:06 Temperature Pulse Rate 115 H 113 H 112 H Pulse Rate [ From Monitor] Pulse Rate [ Intra-Procedure ] Pulse Rate [ Post-Procedure] Pulse Rate [Pre -Procedure] Respiratory 25 H 24 26 H Rate Respiratory Rate [Intra- Procedure] Respiratory Rate [Post- Procedure] Respiratory Rate [Pre- Procedure] Blood Pressure 115/60 115/60 104/49 Blood Pressure [Intra- Procedure] Blood Pressure [Post-Procedure ] Blood Pressure [Pre-Procedure] O2 Sat by Pulse 100 100 100 Oximetry O2 Sat by Pulse Oximetry [ Intra-Procedure ] O2 Sat by Pulse Oximetry [Post -Procedure] O2 Sat by Pulse Oximetry [Pre- Procedure] 03/11/19 03/11/19 03/11/19 10:10 10:15 10:20 Temperature Pulse Rate 114 H 114 H 117 H Pulse Rate [ From Monitor] Pulse Rate [ Intra-Procedure ] Pulse Rate [ Post-Procedure] Pulse Rate [Pre -Procedure] Respiratory 24 25 H 26 H Rate Respiratory Rate [Intra- Procedure] Respiratory Rate [Post- Procedure] Respiratory Rate [Pre- Procedure] Blood Pressure 104/49 108/57 108/57 Blood Pressure [Intra- Procedure] Blood Pressure [Post-Procedure ] Blood Pressure [Pre-Procedure] O2 Sat by Pulse 100 100 100 Oximetry O2 Sat by Pulse Oximetry [ Intra-Procedure ] O2 Sat by Pulse Oximetry [Post -Procedure] O2 Sat by Pulse Oximetry [Pre- Procedure] 03/11/19 03/11/19 03/11/19 10:26 10:30 10:36 Temperature Pulse Rate 118 H 117 H 117 H Pulse Rate [ From Monitor] Pulse Rate [ Intra-Procedure ] Pulse Rate [ Post-Procedure] Pulse Rate [Pre -Procedure] Respiratory 26 H 26 H 25 H Rate Respiratory Rate [Intra- Procedure] Respiratory Rate [Post- Procedure] Respiratory Rate [Pre- Procedure] Blood Pressure 115/60 118/60 118/60 Blood Pressure [Intra- Procedure] Blood Pressure [Post-Procedure ] Blood Pressure [Pre-Procedure] O2 Sat by Pulse 100 100 100 Oximetry O2 Sat by Pulse Oximetry [ Intra-Procedure ] O2 Sat by Pulse Oximetry [Post -Procedure] O2 Sat by Pulse Oximetry [Pre- Procedure] 03/11/19 03/11/19 03/11/19 10:40 10:45 10:50 Temperature Pulse Rate 116 H 114 H 117 H Pulse Rate [ From Monitor] Pulse Rate [ Intra-Procedure ] Pulse Rate [ Post-Procedure] Pulse Rate [Pre -Procedure] Respiratory 24 26 H 25 H Rate Respiratory Rate [Intra- Procedure] Respiratory Rate [Post- Procedure] Respiratory Rate [Pre- Procedure] Blood Pressure 118/60 109/54 109/54 Blood Pressure [Intra- Procedure] Blood Pressure [Post-Procedure ] Blood Pressure [Pre-Procedure] O2 Sat by Pulse 100 100 100 Oximetry O2 Sat by Pulse Oximetry [ Intra-Procedure ] O2 Sat by Pulse Oximetry [Post -Procedure] O2 Sat by Pulse Oximetry [Pre- Procedure] 03/11/19 03/11/19 03/11/19 10:56 11:00 11:06 Temperature Pulse Rate 120 H 113 H 116 H Pulse Rate [ From Monitor] Pulse Rate [ Intra-Procedure ] Pulse Rate [ Post-Procedure] Pulse Rate [Pre -Procedure] Respiratory 27 H 26 H 24 Rate Respiratory Rate [Intra- Procedure] Respiratory Rate [Post- Procedure] Respiratory Rate [Pre- Procedure] Blood Pressure 109/54 114/57 114/57 Blood Pressure [Intra- Procedure] Blood Pressure [Post-Procedure ] Blood Pressure [Pre-Procedure] O2 Sat by Pulse 100 100 100 Oximetry O2 Sat by Pulse Oximetry [ Intra-Procedure ] O2 Sat by Pulse Oximetry [Post -Procedure] O2 Sat by Pulse Oximetry [Pre- Procedure] 03/11/19 03/11/19 03/11/19 11:10 11:15 11:20 Temperature Pulse Rate 112 H 117 H 129 H Pulse Rate [ From Monitor] Pulse Rate [ Intra-Procedure ] Pulse Rate [ Post-Procedure] Pulse Rate [Pre -Procedure] Respiratory 25 H 28 H 36 H Rate Respiratory Rate [Intra- Procedure] Respiratory Rate [Post- Procedure] Respiratory Rate [Pre- Procedure] Blood Pressure 114/57 117/64 117/64 Blood Pressure [Intra- Procedure] Blood Pressure [Post-Procedure ] Blood Pressure [Pre-Procedure] O2 Sat by Pulse 100 100 100 Oximetry O2 Sat by Pulse Oximetry [ Intra-Procedure ] O2 Sat by Pulse Oximetry [Post -Procedure] O2 Sat by Pulse Oximetry [Pre- Procedure] 03/11/19 03/11/19 03/11/19 11:26 11:30 11:36 Temperature Pulse Rate 121 H 123 H 134 H Pulse Rate [ From Monitor] Pulse Rate [ Intra-Procedure ] Pulse Rate [ Post-Procedure] Pulse Rate [Pre -Procedure] Respiratory 30 H 35 H 40 H Rate Respiratory Rate [Intra- Procedure] Respiratory Rate [Post- Procedure] Respiratory Rate [Pre- Procedure] Blood Pressure 117/64 123/72 123/72 Blood Pressure [Intra- Procedure] Blood Pressure [Post-Procedure ] Blood Pressure [Pre-Procedure] O2 Sat by Pulse 100 98 95 Oximetry O2 Sat by Pulse Oximetry [ Intra-Procedure ] O2 Sat by Pulse Oximetry [Post -Procedure] O2 Sat by Pulse Oximetry [Pre- Procedure] 03/11/19 03/11/19 03/11/19 11:40 11:45 11:50 Temperature Pulse Rate 125 H 115 H 114 H Pulse Rate [ From Monitor] Pulse Rate [ Intra-Procedure ] Pulse Rate [ Post-Procedure] Pulse Rate [Pre -Procedure] Respiratory 35 H 26 H 26 H Rate Respiratory Rate [Intra- Procedure] Respiratory Rate [Post- Procedure] Respiratory Rate [Pre- Procedure] Blood Pressure 138/79 128/68 122/74 Blood Pressure [Intra- Procedure] Blood Pressure [Post-Procedure ] Blood Pressure [Pre-Procedure] O2 Sat by Pulse 97 99 99 Oximetry O2 Sat by Pulse Oximetry [ Intra-Procedure ] O2 Sat by Pulse Oximetry [Post -Procedure] O2 Sat by Pulse Oximetry [Pre- Procedure] 03/11/19 03/11/19 03/11/19 11:52 11:55 12:00 Temperature 97.8 F Pulse Rate 112 H 114 H Pulse Rate [ 115 H From Monitor] Pulse Rate [ 117 H Intra-Procedure ] Pulse Rate [ 128 H Post-Procedure] Pulse Rate [Pre 114 H -Procedure] Respiratory 25 H 25 H Rate Respiratory 29 H Rate [Intra- Procedure] Respiratory 26 H Rate [Post- Procedure] Respiratory 26 H Rate [Pre- Procedure] Blood Pressure 124/71 123/73 Blood Pressure 123/72 [Intra- Procedure] Blood Pressure 138/79 [Post-Procedure ] Blood Pressure 117/64 [Pre-Procedure] O2 Sat by Pulse 99 99 Oximetry O2 Sat by Pulse 99 Oximetry [ Intra-Procedure ] O2 Sat by Pulse 96 Oximetry [Post -Procedure] O2 Sat by Pulse 100 Oximetry [Pre- Procedure] 03/11/19 03/11/19 03/11/19 12:05 12:10 12:15 Temperature Pulse Rate 112 H 111 H 110 H Pulse Rate [ From Monitor] Pulse Rate [ Intra-Procedure ] Pulse Rate [ Post-Procedure] Pulse Rate [Pre -Procedure] Respiratory 25 H 26 H 26 H Rate Respiratory Rate [Intra- Procedure] Respiratory Rate [Post- Procedure] Respiratory Rate [Pre- Procedure] Blood Pressure 126/72 120/69 117/69 Blood Pressure [Intra- Procedure] Blood Pressure [Post-Procedure ] Blood Pressure [Pre-Procedure] O2 Sat by Pulse 99 99 100 Oximetry O2 Sat by Pulse Oximetry [ Intra-Procedure ] O2 Sat by Pulse Oximetry [Post -Procedure] O2 Sat by Pulse Oximetry [Pre- Procedure] 03/11/19 03/11/19 03/11/19 12:20 12:25 12:30 Temperature Pulse Rate 110 H 109 H 113 H Pulse Rate [ From Monitor] Pulse Rate [ Intra-Procedure ] Pulse Rate [ Post-Procedure] Pulse Rate [Pre -Procedure] Respiratory 25 H 24 25 H Rate Respiratory Rate [Intra- Procedure] Respiratory Rate [Post- Procedure] Respiratory Rate [Pre- Procedure] Blood Pressure 120/65 118/63 114/54 Blood Pressure [Intra- Procedure] Blood Pressure [Post-Procedure ] Blood Pressure [Pre-Procedure] O2 Sat by Pulse 99 100 100 Oximetry O2 Sat by Pulse Oximetry [ Intra-Procedure ] O2 Sat by Pulse Oximetry [Post -Procedure] O2 Sat by Pulse Oximetry [Pre- Procedure] 03/11/19 03/11/19 03/11/19 12:35 12:40 12:45 Temperature Pulse Rate 116 H 113 H 116 H Pulse Rate [ From Monitor] Pulse Rate [ Intra-Procedure ] Pulse Rate [ Post-Procedure] Pulse Rate [Pre -Procedure] Respiratory 26 H 26 H 29 H Rate Respiratory Rate [Intra- Procedure] Respiratory Rate [Post- Procedure] Respiratory Rate [Pre- Procedure] Blood Pressure 115/62 122/62 118/67 Blood Pressure [Intra- Procedure] Blood Pressure [Post-Procedure ] Blood Pressure [Pre-Procedure] O2 Sat by Pulse 100 100 100 Oximetry O2 Sat by Pulse Oximetry [ Intra-Procedure ] O2 Sat by Pulse Oximetry [Post -Procedure] O2 Sat by Pulse Oximetry [Pre- Procedure] 03/11/19 03/11/19 03/11/19 12:50 12:55 13:00 Temperature Pulse Rate 115 H 114 H 114 H Pulse Rate [ From Monitor] Pulse Rate [ Intra-Procedure ] Pulse Rate [ Post-Procedure] Pulse Rate [Pre -Procedure] Respiratory 26 H 26 H 25 H Rate Respiratory Rate [Intra- Procedure] Respiratory Rate [Post- Procedure] Respiratory Rate [Pre- Procedure] Blood Pressure 118/63 127/64 122/60 Blood Pressure [Intra- Procedure] Blood Pressure [Post-Procedure ] Blood Pressure [Pre-Procedure] O2 Sat by Pulse 100 100 100 Oximetry O2 Sat by Pulse Oximetry [ Intra-Procedure ] O2 Sat by Pulse Oximetry [Post -Procedure] O2 Sat by Pulse Oximetry [Pre- Procedure] 03/11/19 03/11/19 13:05 13:10 Temperature Pulse Rate 116 H 113 H Pulse Rate [ From Monitor] Pulse Rate [ Intra-Procedure ] Pulse Rate [ Post-Procedure] Pulse Rate [Pre -Procedure] Respiratory 28 H 25 H Rate Respiratory Rate [Intra- Procedure] Respiratory Rate [Post- Procedure] Respiratory Rate [Pre- Procedure] Blood Pressure 131/69 121/49 Blood Pressure [Intra- Procedure] Blood Pressure [Post-Procedure ] Blood Pressure [Pre-Procedure] O2 Sat by Pulse 100 100 Oximetry O2 Sat by Pulse Oximetry [ Intra-Procedure ] O2 Sat by Pulse Oximetry [Post -Procedure] O2 Sat by Pulse Oximetry [Pre- Procedure] - Labs CBC & Chem 7: 03/12/19 07:40 03/12/19 Unknown Labs: Abnormal lab results 03/08/19 03/10/19 03/10/19 Range/Units 13:12 16:18 21:42 RBC (3.65-5.03) M/mm3 Hgb (11.8-15.2) gm/dl Hct (35.5-45.6) % MCH (28-32) pg MCHC (32-34) % RDW (13.2-15.2) % Plt Count (140-440) K/mm3 Lymph # (1.2-5.4) K/mm3 Seg Neutrophils % (40.0-70.0) % ABG pH (7.350-7.450) pH Units ABG pO2 (80.0-90.0) mm Hg ABG Hemoglobin (14.0-18.0) gm/dl Oxyhemoglobin (95.0-99.0) % Sodium (137-145) mmol/L Potassium (3.6-5.0) mmol/L Chloride (98-107) mmol/L BUN (9-20) mg/dL Creatinine (0.8-1.5) mg/dL Glucose (75-100) mg/dL POC Glucose 192 H 174 H (70-105) Calcium (8.4-10.2) mg/dL Total Bilirubin (0.1-1.2) mg/dL AST (5-40) units/L ALT (7-56) units/L Total Protein (6.3-8.2) g/dL Albumin (3.9-5) g/dL Crossmatch See Detail 03/10/19 03/11/19 03/11/19 Range/Units 22:00 00:05 04:04 RBC (3.65-5.03) M/mm3 Hgb 7.4 L (11.8-15.2) gm/dl Hct 21.1 L (35.5-45.6) % MCH (28-32) pg MCHC (32-34) % RDW (13.2-15.2) % Plt Count (140-440) K/mm3 Lymph # (1.2-5.4) K/mm3 Seg Neutrophils % (40.0-70.0) % ABG pH (7.350-7.450) pH Units ABG pO2 (80.0-90.0) mm Hg ABG Hemoglobin (14.0-18.0) gm/dl Oxyhemoglobin (95.0-99.0) % Sodium (137-145) mmol/L Potassium (3.6-5.0) mmol/L Chloride (98-107) mmol/L BUN (9-20) mg/dL Creatinine (0.8-1.5) mg/dL Glucose (75-100) mg/dL POC Glucose 136 H 133 H (70-105) Calcium (8.4-10.2) mg/dL Total Bilirubin (0.1-1.2) mg/dL AST (5-40) units/L ALT (7-56) units/L Total Protein (6.3-8.2) g/dL Albumin (3.9-5) g/dL Crossmatch 03/11/19 03/11/19 03/11/19 Range/Units 04:15 04:15 04:25 RBC 2.28 L (3.65-5.03) M/mm3 Hgb 7.4 L (11.8-15.2) gm/dl Hct 20.8 L (35.5-45.6) % MCH 33 H (28-32) pg MCHC 36 H (32-34) % RDW 18.4 H (13.2-15.2) % Plt Count 38 L (140-440) K/mm3 Lymph # 1.1 L (1.2-5.4) K/mm3 Seg Neutrophils % 72.7 H (40.0-70.0) % ABG pH 7.467 H (7.350-7.450) pH Units ABG pO2 69.6 L (80.0-90.0) mm Hg ABG Hemoglobin 7.4 L (14.0-18.0) gm/dl Oxyhemoglobin 94.3 L (95.0-99.0) % Sodium 147 H (137-145) mmol/L Potassium 3.2 L (3.6-5.0) mmol/L Chloride 109.2 H (98-107) mmol/L BUN 34 H (9-20) mg/dL Creatinine 5.0 H (0.8-1.5) mg/dL Glucose 132 H (75-100) mg/dL POC Glucose (70-105) Calcium 7.5 L (8.4-10.2) mg/dL Total Bilirubin 7.40 H (0.1-1.2) mg/dL AST 3748 H (5-40) units/L ALT 864 H (7-56) units/L Total Protein 4.7 L (6.3-8.2) g/dL Albumin 2.5 L (3.9-5) g/dL Crossmatch 03/11/19 03/11/19 Range/Units 08:28 12:03 RBC (3.65-5.03) M/mm3 Hgb (11.8-15.2) gm/dl Hct (35.5-45.6) % MCH (28-32) pg MCHC (32-34) % RDW (13.2-15.2) % Plt Count (140-440) K/mm3 Lymph # (1.2-5.4) K/mm3 Seg Neutrophils % (40.0-70.0) % ABG pH (7.350-7.450) pH Units ABG pO2 (80.0-90.0) mm Hg ABG Hemoglobin (14.0-18.0) gm/dl Oxyhemoglobin (95.0-99.0) % Sodium (137-145) mmol/L Potassium (3.6-5.0) mmol/L Chloride (98-107) mmol/L BUN (9-20) mg/dL Creatinine (0.8-1.5) mg/dL Glucose (75-100) mg/dL POC Glucose 128 H 122 H (70-105) Calcium (8.4-10.2) mg/dL Total Bilirubin (0.1-1.2) mg/dL AST (5-40) units/L ALT (7-56) units/L Total Protein (6.3-8.2) g/dL Albumin (3.9-5) g/dL Crossmatch
[2019-03-11] MEDS ORDERED: NACL 0.9% 100 ML IV PRN (15:50)
[2019-03-11] MEDS ORDERED: LOPRESSOR IV PRN (17:41)
--- NOTE | 2019-03-11 17:45 | Gastroenterology Progress Note ---
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 now on Octreotide - no obvious signs further bleeding - continue current meds, follow h/ - Vent per primary team - will follow Subjective Date of service: 03/11/19 Interval history: - no obvious signs bleeding per staff overnight Objective - Constitutional Vitals: Temp Pulse Resp BP Pulse Ox 99 F 114 H 26 H 129/68 100 03/11/19 15:54 03/11/19 15:46 03/11/19 15:30 03/11/19 15:46 03/11/19 15:46 General appearance: no acute distress - EENT Eyes: PERRL - Respiratory Respiratory: bilateral: rhonchi - Cardiovascular Rhythm: regular Heart Sounds: Present: S1 & S2 - Gastrointestinal General gastrointestinal: Present: soft, non-tender - Labs CBC & Chem 7: 03/11/19 04:15 03/11/19 04:15 Labs: Laboratory Results - last 24 hr 03/08/19 03/10/19 03/10/19 13:12 03:36 21:42 WBC RBC Hgb Hct MCV MCH MCHC RDW Plt Count Lymph % (Auto) [place] % (Auto) Eos % (Auto) Baso % (Auto) Lymph # [place] # Eos # Baso # Seg Neutrophils % Seg Neutrophils # Pathologist Review WBC Morphology Not Reportable ABG pH ABG pCO2 ABG pO2 ABG HCO3 ABG O2 Saturation ABG O2 Content ABG Base Excess ABG Hemoglobin ABG Carboxyhemoglobin ABG Methemoglobin Oxyhemoglobin FiO2 Sodium Potassium Chloride Carbon Dioxide Anion Gap BUN Creatinine Estimated GFR BUN/Creatinine Ratio Glucose POC Glucose 174 H Calcium Total Bilirubin AST ALT Alkaline Phosphatase Total Protein Albumin Albumin/Globulin Ratio Blood Type AB POSITIVE Antibody Screen Negative Crossmatch See Detail 03/10/19 03/11/19 03/11/19 22:00 00:05 04:04 WBC RBC Hgb 7.4 L Hct 21.1 L MCV MCH MCHC RDW Plt Count Lymph % (Auto) [place] % (Auto) Eos % (Auto) Baso % (Auto) Lymph # [place] # Eos # Baso # Seg Neutrophils % Seg Neutrophils # Pathologist Review WBC Morphology ABG pH ABG pCO2 ABG pO2 ABG HCO3 ABG O2 Saturation ABG O2 Content ABG Base Excess ABG Hemoglobin ABG Carboxyhemoglobin ABG Methemoglobin Oxyhemoglobin FiO2 Sodium Potassium Chloride Carbon Dioxide Anion Gap BUN Creatinine Estimated GFR BUN/Creatinine Ratio Glucose POC Glucose 136 H 133 H Calcium Total Bilirubin AST ALT Alkaline Phosphatase Total Protein Albumin Albumin/Globulin Ratio Blood Type Antibody Screen Crossmatch 03/11/19 03/11/19 03/11/19 04:15 04:15 04:25 WBC 6.1 RBC 2.28 L Hgb 7.4 L Hct 20.8 L MCV 91 MCH 33 H MCHC 36 H RDW 18.4 H Plt Count 38 L Lymph % (Auto) 17.4 [place] % (Auto) 6.5 Eos % (Auto) 2.7 Baso % (Auto) 0.7 Lymph # 1.1 L [place] # 0.4 Eos # 0.2 Baso # 0.0 Seg Neutrophils % 72.7 H Seg Neutrophils # 4.4 Pathologist Review WBC Morphology ABG pH 7.467 H ABG pCO2 32.3 ABG pO2 69.6 L ABG HCO3 22.8 ABG O2 Saturation 96.7 ABG O2 Content 4.3 ABG Base Excess -1.1 ABG Hemoglobin 7.4 L ABG Carboxyhemoglobin 2.0 ABG Methemoglobin 0.4 Oxyhemoglobin 94.3 L FiO2 30 Sodium 147 H Potassium 3.2 L Chloride 109.2 H Carbon Dioxide 23 Anion Gap 18 BUN 34 H Creatinine 5.0 H Estimated GFR 14 BUN/Creatinine Ratio 7 Glucose 132 H POC Glucose Calcium 7.5 L Total Bilirubin 7.40 H AST 3748 H ALT 864 H Alkaline Phosphatase 48 Total Protein 4.7 L Albumin 2.5 L Albumin/Globulin Ratio 1.1 Blood Type Antibody Screen Crossmatch 03/11/19 03/11/19 03/11/19 08:28 12:03 17:01 WBC RBC Hgb Hct MCV MCH MCHC RDW Plt Count Lymph % (Auto) [place] % (Auto) Eos % (Auto) Baso % (Auto) Lymph # [place] # Eos # Baso # Seg Neutrophils % Seg Neutrophils # Pathologist Review WBC Morphology ABG pH ABG pCO2 ABG pO2 ABG HCO3 ABG O2 Saturation ABG O2 Content ABG Base Excess ABG Hemoglobin ABG Carboxyhemoglobin ABG Methemoglobin Oxyhemoglobin FiO2 Sodium Potassium Chloride Carbon Dioxide Anion Gap BUN Creatinine Estimated GFR BUN/Creatinine Ratio Glucose POC Glucose 128 H 122 H 135 H Calcium Total Bilirubin AST ALT Alkaline Phosphatase Total Protein Albumin Albumin/Globulin Ratio Blood Type Antibody Screen Crossmatch
[2019-03-11] MEDS ORDERED: fentaNYL DRIP Premix 2,000 MCG/100 ML BAG IV SCH (18:00)
[2019-03-11] MEDS: SandoSTATIN 500 MCG in NACL 0.9% 100 ML IV SCH (18:34)
[2019-03-11] MEDS: Vasostrict 20 UNIT in NACL 0.9% 100 ML IV SCH (22:20)
[2019-03-11] MEDS: NEO-SYNEPHRINE 100 MG in NACL 0.9% 90 ML IV SCH (23:10)
--- NOTE | 2019-03-12 03:04 | XRay Report ---
CHEST 1 VIEW 03/12/2019 2:07 AM INDICATION / CLINICAL INFORMATION: follow up respiratory failure. COMPARISON: Chest x-ray 03/11/2019 FINDINGS: SUPPORT DEVICES: Right internal jugular CVL and ET tube again project in expected position HEART / MEDIASTINUM: Cardiac silhouette upper limits normal in size for AP technique. LUNGS / PLEURA: Mild interstitial edema and small right pleural effusion, unchanged No pneumothorax. ADDITIONAL FINDINGS: No significant additional findings. IMPRESSION: 1. Mild CHF, unchanged Signer Name: Michael Soto MD Signed: 03/12/2019 2:59 AM Workstation Name: [id number] [address]
[2019-03-12 03:43] LABS: ABG Base Excess 1.2 mmol/L (-2.0-3.0); ABG HCO3 25.2 mmol/L (20.0-26.0); ABG Methemoglobin 0.6 % (0.0-1.5); ABG Oxygen Saturation 96.8 % (95.0-99.0); ABG PCO2 35.6 mm Hg; ABG PH 7.467 pH Units (7.350-7.450); ABG PO2 77.8 mm Hg (80.0-90.0)
[2019-03-12] MEDS: TYLENOL PR PRN ×2 (04:29→06:50)
[2019-03-12] MEDS: ZOSYN/NS 2.25 GM/50ML 2.25 GM/50 ML BAG IV SCH ×3 (05:53→22:42)
[2019-03-12] MEDS: PROTONIX 80 MG in NACL 0.9% 100 ML IV SCH (05:54)
[2019-03-12] MEDS: D5W 1,000 ML IV SCH (05:55)
[2019-03-12] MEDS: DIPRIVAN 10 MG/ML 1,000 MG/100 ML BOTTLE IV SCH (06:08)
--- NOTE | 2019-03-12 07:18 | Hem/Onc Progress Note ---
Assessment and Plan 1. Anemia. Hemoglobin was 3 secondary to gastrointestinal bleed. 2. Thrombocytopenia, likely secondary to consumption and liver disease. 3. Low fibrinogen and elevated PT, PTT, secondary to DIC/consumption. 4. Abnormal liver function test. 5. The patient's blood pressure was low and was on pressors. 6. s/p Intubation. 7. History of cirrhosis. 8. History of alcohol usage and smoking. 9. Esophagogastroduodenoscopy showed varices, status post intervention. 10. The patient got octreotide infusion. 11. s/p cryoprecipitate as fibrinogen level is low. His LFTs are abnormal. Vitamin k may not benefit, we have option of FFPs. There is a mention of chest x-ray for monitoring TRALI. Vit K trial follow labs supportive care for now - Patient Problems (1) Thrombocytopenia Current Visit: Yes Status: Acute Subjective Date of service: 03/12/19 Principal diagnosis: low plt - anemia Interval history: no external bleeding Objective - Exam Narrative Exam: Pain - pt on vent General appearance intubated Performance status complete dependence Eyes - no icterus ENT - no bleeding - INTUBATED LNs cervical not palpable Neck - no LN Respiratory Normal Breath sounds - decreased air entry CVS S1 S2 + Extremities normal temperature General GI Rectal deferred male - deferred Skin warm Musculoskeletal - no movements Neurologically not responding - Constitutional Vitals: Last Vital Signs Temp 100.8 F H 03/12/19 04:00 Pulse 99 H 03/12/19 06:45 Resp 17 03/12/19 06:45 BP 112/61 03/12/19 06:45 Pulse Ox 94 03/12/19 06:45 - Labs Lab Results: Laboratory Results - last 24 hr 03/08/19 03/10/19 03/11/19 13:12 03:36 08:28 Pathologist Review WBC Morphology Not Reportable ABG pH ABG pCO2 ABG pO2 ABG HCO3 ABG O2 Saturation ABG O2 Content ABG Base Excess ABG Hemoglobin ABG Carboxyhemoglobin ABG Methemoglobin Oxyhemoglobin FiO2 Sodium Potassium Chloride Carbon Dioxide Anion Gap BUN Creatinine Estimated GFR BUN/Creatinine Ratio Glucose POC Glucose 128 H Calcium Ammonia Blood Type AB POSITIVE Antibody Screen Negative Crossmatch See Detail 03/11/19 03/11/19 03/11/19 12:03 17:01 20:09 Pathologist Review WBC Morphology ABG pH ABG pCO2 ABG pO2 ABG HCO3 ABG O2 Saturation ABG O2 Content ABG Base Excess ABG Hemoglobin ABG Carboxyhemoglobin ABG Methemoglobin Oxyhemoglobin FiO2 Sodium Potassium Chloride Carbon Dioxide Anion Gap BUN Creatinine Estimated GFR BUN/Creatinine Ratio Glucose POC Glucose 122 H 135 H 155 H Calcium Ammonia Blood Type Antibody Screen Crossmatch 03/11/19 03/12/19 03/12/19 23:58 03:00 04:10 Pathologist Review WBC Morphology ABG pH 7.467 H ABG pCO2 35.6 ABG pO2 77.8 L ABG HCO3 25.2 ABG O2 Saturation 96.8 ABG O2 Content 5.5 ABG Base Excess 1.2 ABG Hemoglobin 7.3 L ABG Carboxyhemoglobin 2.1 ABG Methemoglobin 0.6 Oxyhemoglobin 94.2 L FiO2 30 Sodium Potassium Chloride Carbon Dioxide Anion Gap BUN Creatinine Estimated GFR BUN/Creatinine Ratio Glucose POC Glucose 119 H 137 H Calcium Ammonia Blood Type Antibody Screen Crossmatch 03/12/19 03/12/19 03/12/19 05:24 Unknown Unknown Pathologist Review WBC Morphology ABG pH ABG pCO2 ABG pO2 ABG HCO3 ABG O2 Saturation ABG O2 Content ABG Base Excess ABG Hemoglobin ABG Carboxyhemoglobin ABG Methemoglobin Oxyhemoglobin FiO2 Sodium 143 Potassium 3.7 Chloride 103.7 Carbon Dioxide 23 Anion Gap 20 BUN 26 H Creatinine 4.1 H Estimated GFR 17 BUN/Creatinine Ratio 6 Glucose 128 H POC Glucose 137 H Calcium 7.0 L Ammonia 41.0 Blood Type Antibody Screen Crossmatch Medications & Allergies - Medications Allergies/Adverse Reactions: Allergies No Known Allergies Allergy (Verified 03/08/19 12:31) Home Medications: Home Medications Medication Instructions Recorded Confirmed Last Taken Type No Known Home Medications [No 03/10/19 03/10/19 Unknown History Reported Home Medications] Active Medications: Generic Name Dose Route Start Last Admin Trade Name Freq PRN Reason Stop Dose Admin Acetaminophen 650 mg 03/09/19 13:00 03/12/19 06:50 Tylenol RI 650 mg Q4H PRN Administration Pain, Mild (1-3) Albuterol 2.5 mg 03/08/19 14:56 Proventil IH Q3HRT PRN Shortness Of Breath Dextrose 50 ml 03/09/19 01:34 D50w (25gm) Syringe IV PRN PRN Hypoglycemia Fentanyl 50 mcg 03/11/19 17:41 Sublimaze IV Q10MIN PRN ANALGESIA Hydrophilic Ointment 1 applic 03/08/19 22:51 Vaseline Lip Therapy TP Q2HR PRN Dry Lips Pantoprazole Sodium 80 mg/ 100 mls @ 10 mls/hr 03/08/19 14:00 03/12/19 05:54 Sodium Chloride IV 8 mg/hr DIRECT CHARLIE 10 mls/hr Administration 8 MG/HR Norepinephrine 4 mg in 250 mls @ 7.5 mls/hr 03/09/19 04:00 03/09/19 16:15 Levophed Drip 4 Mg/Ns 250 Ml IV 0 mcg/min TITR CHARLIE 0 mls/hr Titration Protocol 2 MCG/MIN Vasopressin 20 unit/ Sodium 101 mls @ 9.09 mls/hr 03/09/19 06:00 03/11/19 22:20 Chloride IV 0.03 units/min TITR CHARLIE 9.09 mls/hr Administration Protocol 0.03 UNITS/MIN Phenylephrine HCl 100 mg/ 100 mls @ 3 mls/hr 03/09/19 08:45 03/12/19 07:06 Sodium Chloride IV 50 mcg/min TITR CHARLIE 3 mls/hr Titration Protocol 50 MCG/MIN Octreotide Acetate 500 mcg/ 101 mls @ 5.05 mls/hr 03/09/19 09:00 03/11/19 18:34 Sodium Chloride IV 25 mcg/hr TITR CHARLIE 5.05 mls/hr Administration Protocol 25 MCG/HR Dextrose 1,000 mls @ 125 mls/hr 03/10/19 10:00 03/12/19 05:55 D5w IV 125 mls/hr DIRECT CHARLIE Administration Propofol 1,000 mg in 100 mls @ 2.61 mls/hr 03/11/19 02:00 03/12/19 06:53 Diprivan 10 Mg/Ml IV 5 mcg/kg/min TITR CHARLIE 2.61 mls/hr Titration Protocol 5 MCG/KG/MIN Piperacillin Sod/Tazobactam Sod 2.25 gm in 50 mls @ 100 mls/hr 03/11/19 14:00 03/12/19 05:53 Zosyn/Ns 2.25 Gm/50ml IV 100 mls/hr Q8HR CHARLIE Administration Sodium Chloride 100 mls @ 999 mls/hr 03/11/19 15:50 Nacl 0.9% IV JULIO CESAR PRN Hypotension Fentanyl Citrate 2,000 mcg in 100 mls @ 4.35 mls/hr 03/11/19 18:00 03/12/19 06:52 Fentanyl Drip Premix IV 1 mcg/kg/hr TITR CHARLIE 4.35 mls/hr Titration Protocol 1 MCG/KG/HR Lorazepam 2 mg 03/08/19 14:57 03/10/19 22:43 Ativan IV 2 mg Q1HR PRN Administration CIWA-Jayro 8-15 Metoclopramide HCl 5 mg 03/11/19 09:00 Reglan IV Q6H PRN Nausea And Vomiting Metoprolol Tartrate 5 mg 03/11/19 17:41 03/11/19 20:04 Lopressor IV 5 mg Q6HR PRN Administration Tachyarrhythmias Multi-Ingred Cream/Lotion/Oil/Oint 1 applic 03/08/19 22:51 Artificial Tears Ophth Oint OU Q4HR PRN Dry Eye(s) Sodium Chloride 10 ml 03/08/19 22:00 03/11/19 21:32 Sodium Chloride Flush Syringe 10 Ml IV 10 ml BID CHARLIE Administration Sodium Chloride 10 ml 03/08/19 14:56 Sodium Chloride Flush Syringe 10 Ml IV PRN PRN LINE FLUSH
[2019-03-12 07:52] LABS: Hematocrit 20.9 % (35.5-45.6); Hemoglobin 7.4 gm/dl (11.8-15.2); Mean Corpuscular HGB Conc 35 % (32-34); Mean Corpuscular Volume 93 fl (84-94); Red Blood Count 2.24 M/mm3 (3.65-5.03)
[2019-03-12 08:03] LABS: Platelet Count 45 K/mm3 (140-440)
[2019-03-12 08:15] LABS: INR 2.02 (0.87-1.13)
[2019-03-12 08:17] LABS: Partial Thromboplastin Time 45.4 Sec. (24.2-36.6)
[2019-03-12 08:52] LABS: Band Neutrophils # (Manual) 0.2 K/mm3; Basophils % (Manual) 0 % (0.0-1.8); Total Cells Counted 100
[2019-03-12 08:53] LABS: Platelet Estimate Consistent w Auto
[2019-03-12 08:54] LABS: Stomatocytes 1+
[2019-03-12 08:55] LABS: Anisocytosis 1+; Schistocytes Rare
[2019-03-12] MEDS: SODIUM CHLORIDE FLUSH SYRINGE 10 ML IV SCH (10:30)
[2019-03-12] MEDS: Vasostrict 20 UNIT in NACL 0.9% 100 ML IV SCH (10:34)
--- NOTE | 2019-03-12 10:53 | Progress Note ---
Assessment and Plan Acute GI bleed due to large esophageal varices, with hemorrhagic shock s/p EGD by GI, Acute hypoxemic respiratory failure on MVS Possible septic shock, temperature spike Severe lactic acidosis History of alcohol abuse disorder Acute renal failure, likharjinder ATN Hypernatremia Alcoholic hepatic cirrhosis - give Vitamin K 10 mg SQ daily X 3 days - begin daily SAT's and SBT's as tolerated - change IV fluids to d51/2NS at 100 mls/hr - continue to use fentanyl re: ? pain component to tachyarrythmia - target RASS 0 to -1 - prn metoprolol for puls >/= 130/min - continue HD/UF per nephrology prescription and for volume control - Continue with supportive blood transfusions depending on Hb level and rate of bleeding - Wean vasopressor support to keep MAP> 60-65 (monitor closely to keep blood pressure within range to allow for organ perfusion but avoid bleeding; prn lactate levels) - Monitor hemodynamics closely - VAP bundle addressed - wean FiO2 for sats > 90% at this point (Anemia improved) - Transfuse to keep HgB > 7g/dL, Platelets >/= 50K - DIC panel ordered and addressed - continue hoffman catheter - Hypotonic solutions to treat hypernatremia - continue CIWA protocol - PPI, therapeutic dosing, change continuous infusion to BID dosing once ok with G.I. team - continue Strict NPO for now (no NGT or OGT placement to avoid dislodging the bands) - begin daily SAT and SBT assessment as tolerated - Octreotide infusion for >/= 72 hours (will defere to G.I. team) - continue to avoid nephrotoxins, adjust all medications for GFR and CRCL - SCDs for VTE prophylaxis - continue accuchecks q4 with hypoglycemia protocol; target BG of 140-180 mg/dl acutely - continue to monitor for TRALI - continue other care per attending / other consultants ... re-evaluate in am & prn .....mother consoled at bedside and care plan discussed CONDITION: CRITIAL PROGNOSIS: GUARDED CODE STATUS: FULL CODE Discussed extensively with RT/RN and care team in ICU IDT rounds The high probability of a clinically significant, sudden or life threatening deterioration of the respiratory, gastroenterology/hepatology, renal systems required my full and direct attention, intervention and personal management. The aggregate critical care time was 32 minutes. This time is in addition to time spent performing reported procedures but includes the following: [x] Data Review and interpretation [x] Patient assessment and monitoring of vital signs [x] Documentation [x] Medication orders and management Subjective Date of service: 03/12/19 Principal diagnosis: Ac. GI bleed; hemorrhagic shock; Ac. hypoxemic resp failure; ADRIANNE likley ATN Interval history: Patient is seen today for: Ac. GI bleed (esophageal varices); hemorrhagic shock; Ac. hypoxemic resp failure; Possible septic shock; Severe lactic acidosis; H/O alcohol abuse disorder; Acute renal failure, likely ATN; Hypernatremia Seen and examined at bedside; 24hour events reviewed; nursing and respiratory care staff consulted; no adverse overnight events reported to me; resting in bed; remains on MVS; a little more coherent; no gross bleeding but still coagulopathic; No emesis or overt aspiration; mother in room Objective Vital Signs - 12hr 03/11/19 03/11/19 03/11/19 23:00 23:15 23:16 Temperature Pulse Rate 114 H 113 H 114 H Pulse Rate [ From Monitor] Pulse Rate [ Left Dorsalis Pedis] Respiratory 17 15 Rate Blood Pressure 86/45 86/42 88/41 O2 Sat by Pulse 98 96 96 Oximetry 03/11/19 03/11/19 03/11/19 23:30 23:38 23:45 Temperature 98.4 F Pulse Rate 107 H 104 H Pulse Rate [ From Monitor] Pulse Rate [ Left Dorsalis Pedis] Respiratory 16 17 Rate Blood Pressure 81/57 85/61 O2 Sat by Pulse 97 Oximetry 03/12/19 03/12/19 03/12/19 00:00 00:06 00:15 Temperature Pulse Rate 102 H 103 H 103 H Pulse Rate [ 104 H From Monitor] Pulse Rate [ 104 H Left Dorsalis Pedis] Respiratory 17 18 17 Rate Blood Pressure 97/67 97/67 107/62 O2 Sat by Pulse 98 97 98 Oximetry 03/12/19 03/12/19 03/12/19 00:30 00:45 01:00 Temperature Pulse Rate 103 H 103 H 101 H Pulse Rate [ From Monitor] Pulse Rate [ Left Dorsalis Pedis] Respiratory 17 18 18 Rate Blood Pressure 111/62 124/79 128/81 O2 Sat by Pulse 98 99 Oximetry 03/12/19 03/12/19 03/12/19 01:15 01:30 01:45 Temperature Pulse Rate 102 H 100 H 101 H Pulse Rate [ From Monitor] Pulse Rate [ Left Dorsalis Pedis] Respiratory 18 17 18 Rate Blood Pressure 121/67 121/71 115/65 O2 Sat by Pulse 97 Oximetry 03/12/19 03/12/19 03/12/19 02:00 02:15 02:30 Temperature Pulse Rate 101 H 103 H 102 H Pulse Rate [ From Monitor] Pulse Rate [ Left Dorsalis Pedis] Respiratory 17 19 18 Rate Blood Pressure 117/62 114/72 118/64 O2 Sat by Pulse 95 97 Oximetry 03/12/19 03/12/19 03/12/19 02:45 03:00 03:15 Temperature Pulse Rate 103 H 102 H 98 H Pulse Rate [ From Monitor] Pulse Rate [ Left Dorsalis Pedis] Respiratory 19 18 17 Rate Blood Pressure 116/67 115/62 118/67 O2 Sat by Pulse 97 Oximetry 03/12/19 03/12/19 03/12/19 03:30 03:45 04:00 Temperature 100.8 F H Pulse Rate 119 H 133 H 102 H Pulse Rate [ 97 H From Monitor] Pulse Rate [ 97 H Left Dorsalis Pedis] Respiratory 16 27 H 22 Rate Blood Pressure 125/80 131/75 O2 Sat by Pulse 97 75 L 95 Oximetry 03/12/19 03/12/19 03/12/19 04:15 04:30 04:45 Temperature Pulse Rate 98 H 99 H 97 H Pulse Rate [ From Monitor] Pulse Rate [ Left Dorsalis Pedis] Respiratory 18 19 19 Rate Blood Pressure 129/78 122/73 132/77 O2 Sat by Pulse Oximetry 03/12/19 03/12/19 03/12/19 05:00 05:15 05:30 Temperature Pulse Rate 102 H 100 H 95 H Pulse Rate [ From Monitor] Pulse Rate [ Left Dorsalis Pedis] Respiratory 20 19 18 Rate Blood Pressure 123/73 130/81 132/83 O2 Sat by Pulse 97 98 Oximetry 03/12/19 03/12/19 03/12/19 05:45 06:00 06:15 Temperature Pulse Rate 111 H 91 H 97 H Pulse Rate [ From Monitor] Pulse Rate [ Left Dorsalis Pedis] Respiratory 22 19 18 Rate Blood Pressure 130/70 137/85 115/67 O2 Sat by Pulse 96 96 96 Oximetry 09/12/2303/12/19 03/12/19 06:30 06:45 07:00 Temperature Pulse Rate 100 H 99 H 99 H Pulse Rate [ From Monitor] Pulse Rate [ Left Dorsalis Pedis] Respiratory 17 17 17 Rate Blood Pressure 117/66 112/61 106/57 O2 Sat by Pulse 97 94 Oximetry 03/12/19 03/12/19 03/12/19 07:15 07:30 07:45 Temperature Pulse Rate 97 H 95 H 96 H Pulse Rate [ From Monitor] Pulse Rate [ Left Dorsalis Pedis] Respiratory 15 15 15 Rate Blood Pressure 108/55 111/60 107/53 O2 Sat by Pulse 94 Oximetry 03/12/19 03/12/19 03/12/19 08:00 08:15 09:55 Temperature 99.4 F Pulse Rate 96 H 93 H 88 Pulse Rate [ 94 H From Monitor] Pulse Rate [ Left Dorsalis Pedis] Respiratory 15 11 L Rate Blood Pressure 112/60 105/49 111/75 O2 Sat by Pulse 95 95 98 Oximetry Constitutional: appears uncomfortable, other (young AM, normocephalic with mild ly increased resp effort on MVS) Eyes: icteric ENT: oropharynx moist, other (ETT 23-24 cm YARED) Neck: supple, no lymphadenopathy, no JVD Effort: mildly labored Ascultation: Bilateral: diminished breath sounds, rhonchi Percussion: Bilateral: not dull Cardiovascular: regular rate and rhythm, other (Tachcardia, regular, S1,S2, no murmurs) Gastrointestinal: hypoactive bowel sounds, non-tender, non-distended Integumentary: normal Extremities: no cyanosis, no edema, cool, edema Neurologic: non-focal exam (grossly), pupils equal and round, CN II-XII normal, motor strength normal and, other (sedated lightly) Psychiatric: other (unable to assess / delirious) CBC and BMP: 03/13/19 08:04 03/13/19 04:11 ABG, PT/INR, D-dimer: ABG POC ABG pH 7.375 (7.35-7.45) 03/09/19 02:02 ABG pH 7.467 pH Units (7.350-7.450) H 03/12/19 03:00 POC ABG pCO2 31.8 (35-45) L 03/09/19 02:02 ABG pCO2 35.6 mm Hg 03/12/19 03:00 POC ABG pO2 142 (80-105) H 03/09/19 02:02 ABG pO2 77.8 mm Hg (80.0-90.0) L 03/12/19 03:00 POC ABG HCO3 18.6 (22-26 mml/L) 03/09/19 02:02 POC ABG Total CO2 20 (23-27mmol/L) 03/09/19 02:02 POC ABG O2 Sat 99 03/09/19 02:02 ABG O2 Saturation 96.8 % (95.0-99.0) 03/12/19 03:00 PT/INR, D-dimer PT 22.4 Sec. (12.2-14.9) H 03/12/19 07:40 INR 2.02 (0.87-1.13) H 03/12/19 07:40 1494.02 ng/mlDDU (0-234) H 03/09/19 13:50 Abnormal lab findings: Abnormal Labs 03/08/19 03/08/19 03/08/19 09:34 12:57 12:59 WBC RBC 3.14 L Hgb 11.3 L Hct 33.3 L MCV 106 H MCH 36 H MCHC RDW 18.5 H Plt Count 61 L Lymph # Seg Neutrophils % Seg Neuts % (Manual) Lymphocytes % (Manual) 50.0 H Monocytes % (Manual) Nucleated RBC % Seg Neutrophils # Man Lymphocytes # (Manual) Monocytes # (Manual) PT 16.9 H INR 1.41 H APTT Fibrinogen D-Dimer POC ABG pH ABG pH POC ABG pCO2 POC ABG pO2 ABG pO2 ABG Hemoglobin Oxyhemoglobin Sodium Potassium Chloride Carbon Dioxide BUN Creatinine Glucose POC Glucose Lactic Acid Calcium Phosphorus Iron TIBC Total Bilirubin Direct Bilirubin AST ALT Total Protein Albumin Lipase Urine WBC (Auto) Plasma/Serum Alcohol 0.34 H Crossmatch 03/08/19 03/08/19 03/08/19 13:12 13:14 14:21 WBC RBC Hgb Hct MCV MCH MCHC RDW Plt Count Lymph # Seg Neutrophils % Seg Neuts % (Manual) Lymphocytes % (Manual) Monocytes % (Manual) Nucleated RBC % Seg Neutrophils # Man Lymphocytes # (Manual) Monocytes # (Manual) PT INR APTT Fibrinogen D-Dimer POC ABG pH ABG pH POC ABG pCO2 POC ABG pO2 ABG pO2 ABG Hemoglobin Oxyhemoglobin Sodium Potassium Chloride 89.4 L Carbon Dioxide 8 L* BUN Creatinine Glucose 74 L POC Glucose Lactic Acid Calcium Phosphorus Iron TIBC Total Bilirubin 4.70 H Direct Bilirubin AST 611 H ALT 153 H Total Protein Albumin Lipase Urine WBC (Auto) 18.0 H Plasma/Serum Alcohol Crossmatch See Detail 03/08/19 03/08/19 03/08/19 20:51 20:51 22:29 WBC 17.0 H RBC 2.21 L Hgb 8.0 L D Hct 26.8 L D MCV 121 H MCH 36 H MCHC 30 L RDW 20.5 H Plt Count 84 L Lymph # Seg Neutrophils % Seg Neuts % (Manual) 83.0 H Lymphocytes % (Manual) 8.0 L Monocytes % (Manual) 9.0 H Nucleated RBC % 1.0 H Seg Neutrophils # Man 14.1 H Lymphocytes # (Manual) Monocytes # (Manual) 1.5 H PT INR APTT Fibrinogen D-Dimer POC ABG pH ABG pH POC ABG pCO2 POC ABG pO2 ABG pO2 ABG Hemoglobin Oxyhemoglobin Sodium Potassium 7.0 H* D Chloride 90.7 L Carbon Dioxide 3 L* BUN Creatinine 1.6 H Glucose 60 L POC Glucose 48 L Lactic Acid Calcium 8.0 L Phosphorus Iron TIBC Total Bilirubin 5.00 H Direct Bilirubin AST 1815 H ALT 399 H Total Protein Albumin 3.7 L Lipase Urine WBC (Auto) Plasma/Serum Alcohol Crossmatch 03/08/19 03/08/19 03/08/19 22:43 23:00 23:10 WBC RBC Hgb Hct MCV MCH MCHC RDW Plt Count Lymph # Seg Neutrophils % Seg Neuts % (Manual) Lymphocytes % (Manual) Monocytes % (Manual) Nucleated RBC % Seg Neutrophils # Man Lymphocytes # (Manual) Monocytes # (Manual) PT INR APTT Fibrinogen D-Dimer POC ABG pH ABG pH POC ABG pCO2 POC ABG pO2 ABG pO2 ABG Hemoglobin Oxyhemoglobin Sodium Potassium 7.9 H* Chloride 86.4 L Carbon Dioxide 9 L* BUN Creatinine 1.7 H Glucose 314 H POC Glucose Lactic Acid 23.50 H* Calcium Phosphorus 8.60 H Iron TIBC Total Bilirubin Direct Bilirubin AST ALT Total Protein Albumin Lipase Urine WBC (Auto) Plasma/Serum Alcohol Crossmatch 03/08/19 03/09/19 03/09/19 23:50 00:00 00:31 WBC RBC Hgb Hct MCV MCH MCHC RDW Plt Count Lymph # Seg Neutrophils % Seg Neuts % (Manual) Lymphocytes % (Manual) Monocytes % (Manual) Nucleated RBC % Seg Neutrophils # Man Lymphocytes # (Manual) Monocytes # (Manual) PT INR APTT Fibrinogen D-Dimer POC ABG pH 7.120 L ABG pH POC ABG pCO2 30.7 L POC ABG pO2 130 H ABG pO2 ABG Hemoglobin Oxyhemoglobin Sodium Potassium 6.3 H* D Chloride 93.7 L Carbon Dioxide 11 L BUN 21 H Creatinine 1.7 H Glucose 219 H POC Glucose 206 H Lactic Acid Calcium 8.2 L Phosphorus Iron TIBC Total Bilirubin Direct Bilirubin AST ALT Total Protein Albumin Lipase Urine WBC (Auto) Plasma/Serum Alcohol Crossmatch 03/09/19 03/09/19 03/09/19 00:47 01:45 02:02 WBC RBC 1.72 L Hgb 6.3 L Hct 20.0 L D MCV 117 H MCH 37 H MCHC 31 L RDW 20.9 H Plt Count 62 L Lymph # Seg Neutrophils % Seg Neuts % (Manual) 93.0 H Lymphocytes % (Manual) 6.0 L Monocytes % (Manual) Nucleated RBC % 1.0 H Seg Neutrophils # Man 9.6 H Lymphocytes # (Manual) 0.6 L Monocytes # (Manual) PT INR APTT Fibrinogen D-Dimer POC ABG pH ABG pH POC ABG pCO2 31.8 L POC ABG pO2 142 H ABG pO2 ABG Hemoglobin Oxyhemoglobin Sodium Potassium Chloride Carbon Dioxide BUN Creatinine Glucose POC Glucose 182 H Lactic Acid Calcium Phosphorus Iron TIBC Total Bilirubin Direct Bilirubin AST ALT Total Protein Albumin Lipase Urine WBC (Auto) Plasma/Serum Alcohol Crossmatch 03/09/19 03/09/19 03/09/19 02:10 02:30 03:00 WBC RBC Hgb Hct MCV MCH MCHC RDW Plt Count Lymph # Seg Neutrophils % Seg Neuts % (Manual) Lymphocytes % (Manual) Monocytes % (Manual) Nucleated RBC % Seg Neutrophils # Man Lymphocytes # (Manual) Monocytes # (Manual) PT INR APTT Fibrinogen D-Dimer POC ABG pH ABG pH POC ABG pCO2 POC ABG pO2 ABG pO2 ABG Hemoglobin Oxyhemoglobin Sodium 150 H D Potassium Chloride Carbon Dioxide BUN Creatinine Glucose 177 H POC Glucose 178 H Lactic Acid Calcium 10.5 H D Phosphorus Iron 208 H TIBC 185 L Total Bilirubin Direct Bilirubin AST ALT Total Protein Albumin Lipase Urine WBC (Auto) Plasma/Serum Alcohol Crossmatch 03/09/19 03/09/19 03/09/19 04:16 05:46 07:47 WBC RBC 1.06 L Hgb 3.9 L* Hct 11.7 L* D MCV 111 H MCH 37 H MCHC RDW 20.0 H Plt Count 52 L Lymph # Seg Neutrophils % 79.1 H Seg Neuts % (Manual) Lymphocytes % (Manual) Monocytes % (Manual) Nucleated RBC % Seg Neutrophils # Man Lymphocytes # (Manual) Monocytes # (Manual) PT INR APTT Fibrinogen D-Dimer POC ABG pH ABG pH POC ABG pCO2 POC ABG pO2 ABG pO2 ABG Hemoglobin Oxyhemoglobin Sodium Potassium Chloride Carbon Dioxide BUN Creatinine Glucose POC Glucose 201 H 176 H Lactic Acid Calcium Phosphorus Iron TIBC Total Bilirubin Direct Bilirubin AST ALT Total Protein Albumin Lipase Urine WBC (Auto) Plasma/Serum Alcohol Crossmatch 03/09/19 03/09/19 03/09/19 07:48 07:48 13:50 WBC RBC 2.69 L Hgb 8.9 L D Hct 25.8 L D MCV 96 H MCH 33 H MCHC 35 H RDW 17.1 H Plt Count 49 L Lymph # Seg Neutrophils % 79.1 H Seg Neuts % (Manual) Lymphocytes % (Manual) Monocytes % (Manual) Nucleated RBC % Seg Neutrophils # Man Lymphocytes # (Manual) Monocytes # (Manual) PT INR APTT Fibrinogen D-Dimer POC ABG pH ABG pH POC ABG pCO2 POC ABG pO2 ABG pO2 ABG Hemoglobin Oxyhemoglobin Sodium 154 H Potassium Chloride 111.2 H Carbon Dioxide 18 L BUN 22 H Creatinine 2.1 H Glucose 131 H POC Glucose Lactic Acid 19.10 H* Calcium Phosphorus Iron TIBC Total Bilirubin Direct Bilirubin AST ALT Total Protein Albumin Lipase Urine WBC (Auto) Plasma/Serum Alcohol Crossmatch 03/09/19 03/09/19 03/09/19 13:50 14:20 16:08 WBC RBC Hgb Hct MCV MCH MCHC RDW Plt Count Lymph # Seg Neutrophils % Seg Neuts % (Manual) Lymphocytes % (Manual) Monocytes % (Manual) Nucleated RBC % Seg Neutrophils # Man Lymphocytes # (Manual) Monocytes # (Manual) PT 28.2 H INR 2.70 H APTT 41.8 H Fibrinogen 81 L* D-Dimer 1494.02 H POC ABG pH ABG pH POC ABG pCO2 POC ABG pO2 ABG pO2 ABG Hemoglobin Oxyhemoglobin Sodium Potassium Chloride Carbon Dioxide BUN Creatinine Glucose POC Glucose 188 H 235 H Lactic Acid Calcium Phosphorus Iron TIBC Total Bilirubin Direct Bilirubin AST ALT Total Protein Albumin Lipase Urine WBC (Auto) Plasma/Serum Alcohol Crossmatch 03/09/19 03/09/19 03/09/19 17:55 23:26 Unknown WBC RBC Hgb Hct MCV MCH MCHC RDW Plt Count Lymph # Seg Neutrophils % Seg Neuts % (Manual) Lymphocytes % (Manual) Monocytes % (Manual) Nucleated RBC % Seg Neutrophils # Man Lymphocytes # (Manual) Monocytes # (Manual) PT INR APTT Fibrinogen D-Dimer POC ABG pH ABG pH POC ABG pCO2 POC ABG pO2 ABG pO2 ABG Hemoglobin Oxyhemoglobin Sodium Potassium Chloride Carbon Dioxide BUN Creatinine Glucose POC Glucose 233 H 236 H Lactic Acid Calcium Phosphorus Iron TIBC Total Bilirubin Direct Bilirubin AST ALT Total Protein Albumin Lipase 385 H Urine WBC (Auto) Plasma/Serum Alcohol Crossmatch 03/10/19 03/10/19 03/10/19 00:04 03:36 03:36 WBC RBC 2.11 L Hgb 7.8 L 7.1 L Hct 22.0 L 19.7 L* MCV MCH 34 H MCHC 36 H RDW 17.9 H Plt Count 45 L Lymph # Seg Neutrophils % 73.6 H Seg Neuts % (Manual) 90.0 H Lymphocytes % (Manual) 3.0 L Monocytes % (Manual) Nucleated RBC % 3.0 H Seg Neutrophils # Man Lymphocytes # (Manual) 0.2 L Monocytes # (Manual) PT INR APTT Fibrinogen D-Dimer POC ABG pH ABG pH POC ABG pCO2 POC ABG pO2 ABG pO2 ABG Hemoglobin Oxyhemoglobin Sodium 150 H Potassium 3.3 L D Chloride 113.2 H Carbon Dioxide BUN 30 H Creatinine 3.4 H D Glucose 196 H POC Glucose Lactic Acid Calcium 8.2 L Phosphorus Iron TIBC Total Bilirubin Direct Bilirubin AST ALT Total Protein Albumin Lipase Urine WBC (Auto) Plasma/Serum Alcohol Crossmatch 03/10/19 03/10/19 03/10/19 03:36 03:53 03:56 WBC RBC Hgb Hct MCV MCH MCHC RDW Plt Count Lymph # Seg Neutrophils % Seg Neuts % (Manual) Lymphocytes % (Manual) Monocytes % (Manual) Nucleated RBC % Seg Neutrophils # Man Lymphocytes # (Manual) Monocytes # (Manual) PT INR APTT Fibrinogen D-Dimer POC ABG pH ABG pH POC ABG pCO2 POC ABG pO2 ABG pO2 94.7 H ABG Hemoglobin 6.5 L Oxyhemoglobin Sodium Potassium Chloride Carbon Dioxide BUN Creatinine Glucose POC Glucose 212 H Lactic Acid Calcium Phosphorus Iron TIBC Total Bilirubin 4.90 H Direct Bilirubin 3.9 H AST 6235 H ALT 924 H Total Protein 4.2 L D Albumin 2.5 L Lipase Urine WBC (Auto) Plasma/Serum Alcohol Crossmatch 03/10/19 03/10/19 03/10/19 05:58 08:12 09:26 WBC RBC Hgb Hct MCV MCH MCHC RDW Plt Count Lymph # Seg Neutrophils % Seg Neuts % (Manual) Lymphocytes % (Manual) Monocytes % (Manual) Nucleated RBC % Seg Neutrophils # Man Lymphocytes # (Manual) Monocytes # (Manual) PT 29.3 H INR 2.83 H APTT Fibrinogen D-Dimer POC ABG pH ABG pH POC ABG pCO2 POC ABG pO2 ABG pO2 ABG Hemoglobin Oxyhemoglobin Sodium Potassium Chloride Carbon Dioxide BUN Creatinine Glucose POC Glucose 171 H 197 H Lactic Acid Calcium Phosphorus Iron TIBC Total Bilirubin Direct Bilirubin AST ALT Total Protein Albumin Lipase Urine WBC (Auto) Plasma/Serum Alcohol Crossmatch 03/10/19 03/10/19 03/10/19 11:40 14:04 16:18 WBC RBC Hgb 6.7 L Hct 18.8 L* MCV MCH MCHC RDW Plt Count Lymph # Seg Neutrophils % Seg Neuts % (Manual) Lymphocytes % (Manual) Monocytes % (Manual) Nucleated RBC % Seg Neutrophils # Man Lymphocytes # (Manual) Monocytes # (Manual) PT INR APTT Fibrinogen D-Dimer POC ABG pH ABG pH POC ABG pCO2 POC ABG pO2 ABG pO2 ABG Hemoglobin Oxyhemoglobin Sodium Potassium Chloride Carbon Dioxide BUN Creatinine Glucose POC Glucose 178 H 192 H Lactic Acid Calcium Phosphorus Iron TIBC Total Bilirubin Direct Bilirubin AST ALT Total Protein Albumin Lipase Urine WBC (Auto) Plasma/Serum Alcohol Crossmatch 03/10/19 03/10/19 03/11/19 21:42 22:00 00:05 WBC RBC Hgb 7.4 L Hct 21.1 L MCV MCH MCHC RDW Plt Count Lymph # Seg Neutrophils % Seg Neuts % (Manual) Lymphocytes % (Manual) Monocytes % (Manual) Nucleated RBC % Seg Neutrophils # Man Lymphocytes # (Manual) Monocytes # (Manual) PT INR APTT Fibrinogen D-Dimer POC ABG pH ABG pH POC ABG pCO2 POC ABG pO2 ABG pO2 ABG Hemoglobin Oxyhemoglobin Sodium Potassium Chloride Carbon Dioxide BUN Creatinine Glucose POC Glucose 174 H 136 H Lactic Acid Calcium Phosphorus Iron TIBC Total Bilirubin Direct Bilirubin AST ALT Total Protein Albumin Lipase Urine WBC (Auto) Plasma/Serum Alcohol Crossmatch 03/11/19 03/11/19 03/11/19 04:04 04:15 04:15 WBC RBC 2.28 L Hgb 7.4 L Hct 20.8 L MCV MCH 33 H MCHC 36 H RDW 18.4 H Plt Count 38 L Lymph # 1.1 L Seg Neutrophils % 72.7 H Seg Neuts % (Manual) Lymphocytes % (Manual) Monocytes % (Manual) Nucleated RBC % Seg Neutrophils # Man Lymphocytes # (Manual) Monocytes # (Manual) PT INR APTT Fibrinogen D-Dimer POC ABG pH ABG pH POC ABG pCO2 POC ABG pO2 ABG pO2 ABG Hemoglobin Oxyhemoglobin Sodium 147 H Potassium 3.2 L Chloride 109.2 H Carbon Dioxide BUN 34 H Creatinine 5.0 H Glucose 132 H POC Glucose 133 H Lactic Acid Calcium 7.5 L Phosphorus Iron TIBC Total Bilirubin 7.40 H Direct Bilirubin AST 3748 H ALT 864 H Total Protein 4.7 L Albumin 2.5 L Lipase Urine WBC (Auto) Plasma/Serum Alcohol Crossmatch 03/11/19 03/11/19 03/11/19 04:25 08:28 12:03 WBC RBC Hgb Hct MCV MCH MCHC RDW Plt Count Lymph # Seg Neutrophils % Seg Neuts % (Manual) Lymphocytes % (Manual) Monocytes % (Manual) Nucleated RBC % Seg Neutrophils # Man Lymphocytes # (Manual) Monocytes # (Manual) PT INR APTT Fibrinogen D-Dimer POC ABG pH ABG pH 7.467 H POC ABG pCO2 POC ABG pO2 ABG pO2 69.6 L ABG Hemoglobin 7.4 L Oxyhemoglobin 94.3 L Sodium Potassium Chloride Carbon Dioxide BUN Creatinine Glucose POC Glucose 128 H 122 H Lactic Acid Calcium Phosphorus Iron TIBC Total Bilirubin Direct Bilirubin AST ALT Total Protein Albumin Lipase Urine WBC (Auto) Plasma/Serum Alcohol Crossmatch 03/11/19 03/11/19 03/11/19 17:01 20:09 23:58 WBC RBC Hgb Hct MCV MCH MCHC RDW Plt Count Lymph # Seg Neutrophils % Seg Neuts % (Manual) Lymphocytes % (Manual) Monocytes % (Manual) Nucleated RBC % Seg Neutrophils # Man Lymphocytes # (Manual) Monocytes # (Manual) PT INR APTT Fibrinogen D-Dimer POC ABG pH ABG pH POC ABG pCO2 POC ABG pO2 ABG pO2 ABG Hemoglobin Oxyhemoglobin Sodium Potassium Chloride Carbon Dioxide BUN Creatinine Glucose POC Glucose 135 H 155 H 119 H Lactic Acid Calcium Phosphorus Iron TIBC Total Bilirubin Direct Bilirubin AST ALT Total Protein Albumin Lipase Urine WBC (Auto) Plasma/Serum Alcohol Crossmatch 03/12/19 03/12/19 03/12/19 03:00 04:10 05:24 WBC RBC Hgb Hct MCV MCH MCHC RDW Plt Count Lymph # Seg Neutrophils % Seg Neuts % (Manual) Lymphocytes % (Manual) Monocytes % (Manual) Nucleated RBC % Seg Neutrophils # Man Lymphocytes # (Manual) Monocytes # (Manual) PT INR APTT Fibrinogen D-Dimer POC ABG pH ABG pH 7.467 H POC ABG pCO2 POC ABG pO2 ABG pO2 77.8 L ABG Hemoglobin 7.3 L Oxyhemoglobin 94.2 L Sodium Potassium Chloride Carbon Dioxide BUN Creatinine Glucose POC Glucose 137 H 137 H Lactic Acid Calcium Phosphorus Iron TIBC Total Bilirubin Direct Bilirubin AST ALT Total Protein Albumin Lipase Urine WBC (Auto) Plasma/Serum Alcohol Crossmatch 03/12/19 03/12/19 03/12/19 07:40 07:40 08:40 WBC RBC 2.24 L Hgb 7.4 L Hct 20.9 L MCV MCH 33 H MCHC 35 H RDW 19.0 H Plt Count 45 L Lymph # Seg Neutrophils % Seg Neuts % (Manual) 76.0 H Lymphocytes % (Manual) Monocytes % (Manual) Nucleated RBC % 11.0 H Seg Neutrophils # Man Lymphocytes # (Manual) 1.1 L Monocytes # (Manual) PT 22.4 H INR 2.02 H APTT 45.4 H Fibrinogen D-Dimer POC ABG pH ABG pH POC ABG pCO2 POC ABG pO2 ABG pO2 ABG Hemoglobin Oxyhemoglobin Sodium Potassium Chloride Carbon Dioxide BUN Creatinine Glucose POC Glucose 132 H Lactic Acid Calcium Phosphorus Iron TIBC Total Bilirubin Direct Bilirubin AST ALT Total Protein Albumin Lipase Urine WBC (Auto) Plasma/Serum Alcohol Crossmatch 03/12/19 Unknown WBC RBC Hgb Hct MCV MCH MCHC RDW Plt Count Lymph # Seg Neutrophils % Seg Neuts % (Manual) Lymphocytes % (Manual) Monocytes % (Manual) Nucleated RBC % Seg Neutrophils # Man Lymphocytes # (Manual) Monocytes # (Manual) PT INR APTT Fibrinogen D-Dimer POC ABG pH ABG pH POC ABG pCO2 POC ABG pO2 ABG pO2 ABG Hemoglobin Oxyhemoglobin Sodium Potassium Chloride Carbon Dioxide BUN 26 H Creatinine 4.1 H Glucose 128 H POC Glucose Lactic Acid Calcium 7.0 L Phosphorus Iron TIBC Total Bilirubin Direct Bilirubin AST ALT Total Protein Albumin Lipase Urine WBC (Auto) Plasma/Serum Alcohol Crossmatch Chest x-ray: image reviewed (mild volume overload and hypoventilation) Allied health notes reviewed: nursing
[2019-03-12 11:25] LABS: Albumin 2.3 g/dL (3.9-5); Bilirubin,Direct 7.4 mg/dL (0-0.2)
[2019-03-12] MEDS: VITAMIN K (ADULT ONLY) SUB-Q SCH (13:36)
[2019-03-12] MEDS: D5/0.45NS 1,000 ML IV SCH (13:37)
--- NOTE | 2019-03-12 15:43 | Progress Note ---
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 Variceal banding ligation performed. * Hyperkalemia - resolved * Acute respirtory failure on mechanical ventilation * Transaminitis * Alcohol abuse * Hypernatremia Plan: * Will plan for dialysis tomorrow if stable after he tolerated 2 hours yesterday; no indication for renal replacement therapy today * 4K bath * Strict I/O * Transfuse pRBC per GI/primary team * GI recommendations reviewed * Vent management per CCM * Pressors prn to maintain MAP>65 * Abx per primary team * Dose medications for renal function * Avoid potential nephrotoxins * Remains high mortality risk given co-morbidities Thank you for this consult; we will continue to follow and provide recommendations from renal standpoint Subjective Date of service: 03/12/19 Principal diagnosis: Ac. GI bleed; hemorrhagic shock; Ac. hypoxemic resp failure; ADRIANNE likley ATN Interval history: Dialyzed for 2 hours yesterday, tolerated per nursing. Remains intubated. Objective - Exam Narrative Exam: General appearance: intubated EENT: ATNC, other (ETT in place) Respiratory: Present: Other (coarse breath sounds) Cardiology: tachycardia Gastrointestinal: hypoactive bowel sounds, distended Integumentary: no rash Musculoskeletal: other (+trace edema) - Vital Signs Vital signs: Vital Signs - 12hr 03/12/19 03/12/19 03/12/19 03:45 04:00 04:15 Temperature 100.8 F H Pulse Rate 133 H 102 H 98 H Pulse Rate [ 97 H From Monitor] Pulse Rate [ 97 H Left Dorsalis Pedis] Respiratory 27 H 22 18 Rate Blood Pressure 125/80 131/75 129/78 O2 Sat by Pulse 75 L 95 Oximetry 03/12/19 03/12/19 03/12/19 04:30 04:45 05:00 Temperature Pulse Rate 99 H 97 H 102 H Pulse Rate [ From Monitor] Pulse Rate [ Left Dorsalis Pedis] Respiratory 19 19 20 Rate Blood Pressure 122/73 132/77 123/73 O2 Sat by Pulse Oximetry 03/12/19 03/12/19 03/12/19 05:15 05:30 05:45 Temperature Pulse Rate 100 H 95 H 111 H Pulse Rate [ From Monitor] Pulse Rate [ Left Dorsalis Pedis] Respiratory 19 18 22 Rate Blood Pressure 130/81 132/83 130/70 O2 Sat by Pulse 97 98 96 Oximetry 03/12/19 03/12/19 03/12/19 06:00 06:15 06:30 Temperature Pulse Rate 91 H 97 H 100 H Pulse Rate [ From Monitor] Pulse Rate [ Left Dorsalis Pedis] Respiratory 19 18 17 Rate Blood Pressure 137/85 115/67 117/66 O2 Sat by Pulse 96 96 97 Oximetry 03/12/19 03/12/19 03/12/19 06:45 07:00 07:15 Temperature Pulse Rate 99 H 99 H 97 H Pulse Rate [ From Monitor] Pulse Rate [ Left Dorsalis Pedis] Respiratory 17 17 15 Rate Blood Pressure 112/61 106/57 108/55 O2 Sat by Pulse 94 Oximetry 03/12/19 03/12/19 03/12/19 07:30 07:45 08:00 Temperature 99.4 F Pulse Rate 95 H 96 H 96 H Pulse Rate [ 94 H From Monitor] Pulse Rate [ Left Dorsalis Pedis] Respiratory 15 15 15 Rate Blood Pressure 111/60 107/53 112/60 O2 Sat by Pulse 94 95 Oximetry 03/12/19 03/12/19 03/12/19 08:15 08:30 08:45 Temperature Pulse Rate 93 H 90 89 Pulse Rate [ From Monitor] Pulse Rate [ Left Dorsalis Pedis] Respiratory 11 L 13 8 L Rate Blood Pressure 105/49 103/54 103/51 O2 Sat by Pulse 95 94 95 Oximetry 03/12/19 03/12/19 03/12/19 09:00 09:15 09:30 Temperature Pulse Rate 89 88 85 Pulse Rate [ From Monitor] Pulse Rate [ Left Dorsalis Pedis] Respiratory 9 L 7 L 13 Rate Blood Pressure 97/49 105/50 105/58 O2 Sat by Pulse 94 96 Oximetry 03/12/19 03/12/19 03/12/19 09:45 09:55 10:00 Temperature Pulse Rate 84 88 82 Pulse Rate [ From Monitor] Pulse Rate [ Left Dorsalis Pedis] Respiratory 12 14 Rate Blood Pressure 106/55 111/75 111/55 O2 Sat by Pulse 96 98 95 Oximetry 03/12/19 03/12/19 03/12/19 10:15 10:30 10:45 Temperature Pulse Rate 81 84 96 H Pulse Rate [ From Monitor] Pulse Rate [ Left Dorsalis Pedis] Respiratory 11 L 12 16 Rate Blood Pressure 104/49 94/45 111/75 O2 Sat by Pulse 95 95 98 Oximetry 03/12/19 03/12/19 03/12/19 11:00 11:15 11:30 Temperature Pulse Rate 79 78 75 Pulse Rate [ From Monitor] Pulse Rate [ Left Dorsalis Pedis] Respiratory 12 14 11 L Rate Blood Pressure 117/72 113/69 119/71 O2 Sat by Pulse 99 93 Oximetry 03/12/19 03/12/19 03/12/19 11:45 12:00 12:15 Temperature Pulse Rate 76 74 75 Pulse Rate [ 76 From Monitor] Pulse Rate [ Left Dorsalis Pedis] Respiratory 11 L 12 12 Rate Blood Pressure 116/67 121/74 119/73 O2 Sat by Pulse 97 100 100 Oximetry 03/12/19 03/12/19 03/12/19 12:30 12:46 13:00 Temperature Pulse Rate 87 112 H 81 Pulse Rate [ From Monitor] Pulse Rate [ Left Dorsalis Pedis] Respiratory 19 32 H 13 Rate Blood Pressure 112/79 111/64 120/78 O2 Sat by Pulse 100 99 98 Oximetry 03/12/19 03/12/19 03/12/19 13:15 13:30 13:45 Temperature Pulse Rate 89 81 88 Pulse Rate [ From Monitor] Pulse Rate [ Left Dorsalis Pedis] Respiratory 15 12 11 L Rate Blood Pressure 115/67 105/61 114/70 O2 Sat by Pulse 100 Oximetry 03/12/19 03/12/19 03/12/19 14:00 14:15 14:30 Temperature Pulse Rate 89 83 83 Pulse Rate [ From Monitor] Pulse Rate [ Left Dorsalis Pedis] Respiratory 14 13 14 Rate Blood Pressure 120/74 110/64 109/63 O2 Sat by Pulse 99 Oximetry 03/12/19 03/12/19 03/12/19 14:46 14:47 14:52 Temperature Pulse Rate 121 H 81 94 H Pulse Rate [ From Monitor] Pulse Rate [ Left Dorsalis Pedis] Respiratory 31 H 14 Rate Blood Pressure 138/78 120/78 138/78 O2 Sat by Pulse 90 97 98 Oximetry 03/12/19 03/12/19 15:00 15:15 Temperature Pulse Rate 95 H 88 Pulse Rate [ From Monitor] Pulse Rate [ Left Dorsalis Pedis] Respiratory 7 L 10 L Rate Blood Pressure 112/75 113/67 O2 Sat by Pulse 97 Oximetry - Lab 03/12/19 07:40 03/12/19 Unknown Most recent lab results ABG pH 7.467 pH Units (7.350-7.450) H 03/12/19 03:00 ABG pCO2 35.6 mm Hg 03/12/19 03:00 ABG pO2 77.8 mm Hg (80.0-90.0) L 03/12/19 03:00 ABG HCO3 25.2 mmol/L (20.0-26.0) 03/12/19 03:00 ABG O2 Saturation 96.8 % (95.0-99.0) 03/12/19 03:00 Calcium 7.0 mg/dL (8.4-10.2) L 03/12/19 Unknown Phosphorus 8.60 mg/dL (2.5-4.5) H 03/08/19 22:43 Magnesium 2.30 mg/dL (1.7-2.3) 03/08/19 22:43 Medications & Allergies - Medications Allergies/Adverse Reactions: Allergies No Known Allergies Allergy (Verified 03/08/19 12:31) Home Medications: Home Medications Medication Instructions Recorded Confirmed Last Taken Type No Known Home Medications [No 03/10/19 03/10/19 Unknown History Reported Home Medications] Active Medications: Generic Name Dose Route Start Last Admin Trade Name Freq PRN Reason Stop Dose Admin Acetaminophen 650 mg 03/09/19 13:00 03/12/19 06:50 Tylenol MO 650 mg Q4H PRN Administration Pain, Mild (1-3) Albuterol 2.5 mg 03/08/19 14:56 Proventil IH Q3HRT PRN Shortness Of Breath Dextrose 50 ml 03/09/19 01:34 D50w (25gm) Syringe IV PRN PRN Hypoglycemia Fentanyl 50 mcg 03/11/19 17:41 Sublimaze IV Q10MIN PRN ANALGESIA Hydrophilic Ointment 1 applic 03/08/19 22:51 Vaseline Lip Therapy TP Q2HR PRN Dry Lips Norepinephrine 4 mg in 250 mls @ 7.5 mls/hr 03/09/19 04:00 03/09/19 16:15 Levophed Drip 4 Mg/Ns 250 Ml IV 0 mcg/min TITR CHARLIE 0 mls/hr Titration Protocol 2 MCG/MIN Phenylephrine HCl 100 mg/ 100 mls @ 3 mls/hr 03/09/19 08:45 03/12/19 15:15 Sodium Chloride IV 20 mcg/min TITR CHARLIE 1.2 mls/hr Titration Protocol 50 MCG/MIN Propofol 1,000 mg in 100 mls @ 2.61 mls/hr 03/11/19 02:00 03/12/19 10:15 Diprivan 10 Mg/Ml IV 0 mcg/kg/min TITR CHARLIE 0 mls/hr Titration Protocol 5 MCG/KG/MIN Piperacillin Sod/Tazobactam Sod 2.25 gm in 50 mls @ 100 mls/hr 03/11/19 14:00 03/12/19 13:36 Zosyn/Ns 2.25 Gm/50ml IV 03/13/19 13:59 100 mls/hr Q8HR CHARLIE Administration Sodium Chloride 100 mls @ 999 mls/hr 03/11/19 15:50 Nacl 0.9% IV JULIO CESAR PRN Hypotension Fentanyl Citrate 2,000 mcg in 100 mls @ 4.35 mls/hr 03/11/19 18:00 03/12/19 15:00 Fentanyl Drip Premix IV 0 mcg/kg/hr TITR CHARLIE 0 mls/hr Titration Protocol 1 MCG/KG/HR Dextrose/Sodium Chloride 1,000 mls @ 100 mls/hr 03/12/19 14:00 03/12/19 13:37 D5/0.45ns IV 100 mls/hr DIRECT CHARLIE Administration Lorazepam 2 mg 03/08/19 14:57 03/10/19 22:43 Ativan IV 2 mg Q1HR PRN Administration CIWA-Ar 8-15 Metoclopramide HCl 5 mg 03/11/19 09:00 Reglan IV Q6H PRN Nausea And Vomiting Metoprolol Tartrate 5 mg 03/11/19 17:41 03/11/19 20:04 Lopressor IV 5 mg Q6HR PRN Administration Tachyarrhythmias Multi-Ingred Cream/Lotion/Oil/Oint 1 applic 03/08/19 22:51 Artificial Tears Ophth Oint OU Q4HR PRN Dry Eye(s) Pantoprazole Sodium 40 mg 03/12/19 22:00 Protonix IV BID CHARLIE Phytonadione 10 mg 03/12/19 14:00 03/12/19 13:36 Vitamin K (Adult Only) SUB-Q 03/14/19 10:01 10 mg DAILY CHARLIE Administration Sodium Chloride 10 ml 03/08/19 22:00 03/12/19 10:30 Sodium Chloride Flush Syringe 10 Ml IV 10 ml BID CHARLIE Administration Sodium Chloride 10 ml 03/08/19 14:56 Sodium Chloride Flush Syringe 10 Ml IV PRN PRN LINE FLUSH
--- NOTE | 2019-03-12 17:34 | Gastroenterology Progress Note ---
Assessment and Plan GI: pt UGI bleed due to ETOH cirrhosis/varices s/p banding - no further signs bleeding - on Octreotide drip - follow h/h, would not transfuse to get Hgb >9 - no changes at this time - will follow Subjective Date of service: 03/12/19 Principal diagnosis: Ac. GI bleed; hemorrhagic shock; Ac. hypoxemic resp failure; ADRIANNE deandre ATN Interval history: - no signs bleeding overnight per staff Objective - Exam Narrative Exam: intubated, sedated - Constitutional Vitals: Temp Pulse Resp BP Pulse Ox 99.4 F 88 10 L 113/67 97 03/12/19 08:00 03/12/19 15:15 03/12/19 15:15 03/12/19 15:15 03/12/19 15:00 General appearance: no acute distress - EENT Eyes: PERRL - Respiratory Respiratory: bilateral: rhonchi - Cardiovascular Rhythm: regular Heart Sounds: Present: S1 & S2 - Gastrointestinal General gastrointestinal: Present: soft, non-tender, non-distended - Labs CBC & Chem 7: 03/12/19 07:40 03/12/19 Unknown Labs: Laboratory Results - last 24 hr 03/11/19 03/11/19 03/12/19 20:09 23:58 03:00 WBC RBC Hgb Hct MCV MCH MCHC RDW Plt Count [place] % (Auto) Add Manual Diff Total Counted Seg Neuts % (Manual) Band Neutrophils % Lymphocytes % (Manual) Reactive Lymphs % (Man) Monocytes % (Manual) Eosinophils % (Manual) Basophils % (Manual) Metamyelocytes % Myelocytes % Promyelocytes % Blast Cells % Nucleated RBC % Seg Neutrophils # Man Band Neutrophils # Lymphocytes # (Manual) Abs React Lymphs (Man) Monocytes # (Manual) Eosinophils # (Manual) Basophils # (Manual) Metamyelocytes # Myelocytes # Promyelocytes # Blast Cells # WBC Morphology Hypersegmented Neuts Hyposegmented Neuts Hypogranular Neuts Smudge Cells Toxic Granulation Toxic Vacuolation Dohle Bodies Pelger-Huet Anomaly Meng Rods Platelet Estimate Clumped Platelets Plt Clumps, EDTA Large Platelets Giant Platelets Platelet Satelliting Plt Morphology Comment RBC Morphology Dimorphic RBCs Polychromasia Hypochromasia Poikilocytosis Anisocytosis Microcytosis Macrocytosis Spherocytes Pappenheimer Bodies Sickle Cells Target Cells Tear Drop Cells Ovalocytes Stomatocytes Helmet Cells Zaman-Loami Bodies [place] Rings [place] Cells Bite Cells Crenated Cell Elliptocytes Acanthocytes (Spur) Rouleaux Hemoglobin C Crystals Schistocytes Malaria parasites Santy Bodies Hem Pathologist Commnt PT INR APTT ABG pH 7.467 H ABG pCO2 35.6 ABG pO2 77.8 L ABG HCO3 25.2 ABG O2 Saturation 96.8 ABG O2 Content 5.5 ABG Base Excess 1.2 ABG Hemoglobin 7.3 L ABG Carboxyhemoglobin 2.1 ABG Methemoglobin 0.6 Oxyhemoglobin 94.2 L FiO2 30 Sodium Potassium Chloride Carbon Dioxide Anion Gap BUN Creatinine Estimated GFR BUN/Creatinine Ratio Glucose POC Glucose 155 H 119 H Calcium Total Bilirubin Direct Bilirubin Indirect Bilirubin AST ALT Alkaline Phosphatase Ammonia Total Protein Albumin Albumin/Globulin Ratio 03/12/19 03/12/19 03/12/19 04:10 05:24 07:40 WBC RBC Hgb Hct MCV MCH MCHC RDW Plt Count [place] % (Auto) Add Manual Diff Total Counted Seg Neuts % (Manual) Band Neutrophils % Lymphocytes % (Manual) Reactive Lymphs % (Man) Monocytes % (Manual) Eosinophils % (Manual) Basophils % (Manual) Metamyelocytes % Myelocytes % Promyelocytes % Blast Cells % Nucleated RBC % Seg Neutrophils # Man Band Neutrophils # Lymphocytes # (Manual) Abs React Lymphs (Man) Monocytes # (Manual) Eosinophils # (Manual) Basophils # (Manual) Metamyelocytes # Myelocytes # Promyelocytes # Blast Cells # WBC Morphology Hypersegmented Neuts Hyposegmented Neuts Hypogranular Neuts Smudge Cells Toxic Granulation Toxic Vacuolation Dohle Bodies Pelger-Huet Anomaly Meng Rods Platelet Estimate Clumped Platelets Plt Clumps, EDTA Large Platelets Giant Platelets Platelet Satelliting Plt Morphology Comment RBC Morphology Dimorphic RBCs Polychromasia Hypochromasia Poikilocytosis Anisocytosis Microcytosis Macrocytosis Spherocytes Pappenheimer Bodies Sickle Cells Target Cells Tear Drop Cells Ovalocytes Stomatocytes Helmet Cells Zaman-Loami Bodies [place] Rings [place] Cells Bite Cells Crenated Cell Elliptocytes Acanthocytes (Spur) Rouleaux Hemoglobin C Crystals Schistocytes Malaria parasites Santy Bodies Hem Pathologist Commnt PT 22.4 H INR 2.02 H APTT 45.4 H ABG pH ABG pCO2 ABG pO2 ABG HCO3 ABG O2 Saturation ABG O2 Content ABG Base Excess ABG Hemoglobin ABG Carboxyhemoglobin ABG Methemoglobin Oxyhemoglobin FiO2 Sodium Potassium Chloride Carbon Dioxide Anion Gap BUN Creatinine Estimated GFR BUN/Creatinine Ratio Glucose POC Glucose 137 H 137 H Calcium Total Bilirubin Direct Bilirubin Indirect Bilirubin AST ALT Alkaline Phosphatase Ammonia Total Protein Albumin Albumin/Globulin Ratio 03/12/19 03/12/19 03/12/19 07:40 08:40 12:00 WBC 7.5 RBC 2.24 L Hgb 7.4 L Hct 20.9 L MCV 93 MCH 33 H MCHC 35 H RDW 19.0 H Plt Count 45 L [place] % (Auto) Feather Baler Add Manual Diff Complete Total Counted 100 Seg Neuts % (Manual) 76.0 H Band Neutrophils % 2.0 Lymphocytes % (Manual) 15.0 Reactive Lymphs % (Man) 0 Monocytes % (Manual) 3.0 Eosinophils % (Manual) 4.0 Basophils % (Manual) 0 Metamyelocytes % 0 Myelocytes % 0 Promyelocytes % 0 Blast Cells % 0 Nucleated RBC % 11.0 H Seg Neutrophils # Man 5.8 Band Neutrophils # 0.2 Lymphocytes # (Manual) 1.1 L Abs React Lymphs (Man) 0.0 Monocytes # (Manual) 0.2 Eosinophils # (Manual) 0.3 Basophils # (Manual) 0.0 Metamyelocytes # 0.0 Myelocytes # 0.0 Promyelocytes # 0.0 Blast Cells # 0.0 WBC Morphology Not Reportable Hypersegmented Neuts Not Reportable Hyposegmented Neuts Not Reportable Hypogranular Neuts Not Reportable Smudge Cells Not Reportable Toxic Granulation Not Reportable Toxic Vacuolation Not Reportable Dohle Bodies Not Reportable Pelger-Huet Anomaly Not Reportable Meng Rods Not Reportable Platelet Estimate Consistent w auto Clumped Platelets Not Reportable Plt Clumps, EDTA Not Reportable Large Platelets Not Reportable Giant Platelets Not Reportable Platelet Satelliting Not Reportable Plt Morphology Comment Not Reportable RBC Morphology Not Reportable Dimorphic RBCs Not Reportable Polychromasia Not Reportable Hypochromasia Not Reportable Poikilocytosis Not Reportable Anisocytosis 1+ Microcytosis Not Reportable Macrocytosis Not Reportable Spherocytes Not Reportable Pappenheimer Bodies Not Reportable Sickle Cells Not Reportable Target Cells Not Reportable Tear Drop Cells Not Reportable Ovalocytes Not Reportable Stomatocytes 1+ Helmet Cells Not Reportable Zaman-[place] Bodies Not Reportable [place] Rings Not Reportable Nancie Cells Not Reportable Bite Cells Not Reportable Crenated Cell Not Reportable Elliptocytes Not Reportable Acanthocytes (Spur) Not Reportable Rouleaux Not Reportable Hemoglobin C Crystals Not Reportable Schistocytes Rare Malaria parasites Not Reportable Santy Bodies Not Reportable Hem Pathologist Commnt No PT INR APTT ABG pH ABG pCO2 ABG pO2 ABG HCO3 ABG O2 Saturation ABG O2 Content ABG Base Excess ABG Hemoglobin ABG Carboxyhemoglobin ABG Methemoglobin Oxyhemoglobin FiO2 Sodium Potassium Chloride Carbon Dioxide Anion Gap BUN Creatinine Estimated GFR BUN/Creatinine Ratio Glucose POC Glucose 132 H 160 H Calcium Total Bilirubin Direct Bilirubin Indirect Bilirubin AST ALT Alkaline Phosphatase Ammonia Total Protein Albumin Albumin/Globulin Ratio 03/12/19 03/12/19 03/12/19 16:51 Unknown Unknown WBC RBC Hgb Hct MCV MCH MCHC RDW Plt Count [place] % (Auto) Add Manual Diff Total Counted Seg Neuts % (Manual) Band Neutrophils % Lymphocytes % (Manual) Reactive Lymphs % (Man) Monocytes % (Manual) Eosinophils % (Manual) Basophils % (Manual) Metamyelocytes % Myelocytes % Promyelocytes % Blast Cells % Nucleated RBC % Seg Neutrophils # Man Band Neutrophils # Lymphocytes # (Manual) Abs React Lymphs (Man) Monocytes # (Manual) Eosinophils # (Manual) Basophils # (Manual) Metamyelocytes # Myelocytes # Promyelocytes # Blast Cells # WBC Morphology Hypersegmented Neuts Hyposegmented Neuts Hypogranular Neuts Smudge Cells Toxic Granulation Toxic Vacuolation Dohle Bodies Pelger-Huet Anomaly Meng Rods Platelet Estimate Clumped Platelets Plt Clumps, EDTA Large Platelets Giant Platelets Platelet Satelliting Plt Morphology Comment RBC Morphology Dimorphic RBCs Polychromasia Hypochromasia Poikilocytosis Anisocytosis Microcytosis Macrocytosis Spherocytes Pappenheimer Bodies Sickle Cells Target Cells Tear Drop Cells Ovalocytes Stomatocytes Helmet Cells Zaman-[place] Bodies [place] Rings [place] Cells Bite Cells Crenated Cell Elliptocytes Acanthocytes (Spur) Rouleaux Hemoglobin C Crystals Schistocytes Malaria parasites Sanyt Bodies Hem Pathologist Commnt PT INR APTT ABG pH ABG pCO2 ABG pO2 ABG HCO3 ABG O2 Saturation ABG O2 Content ABG Base Excess ABG Hemoglobin ABG Carboxyhemoglobin ABG Methemoglobin Oxyhemoglobin FiO2 Sodium 143 Potassium 3.7 Chloride 103.7 Carbon Dioxide 23 Anion Gap 20 BUN 26 H Creatinine 4.1 H Estimated GFR 17 BUN/Creatinine Ratio 6 Glucose 128 H POC Glucose 122 H Calcium 7.0 L Total Bilirubin Direct Bilirubin Indirect Bilirubin AST ALT Alkaline Phosphatase Ammonia 41.0 Total Protein Albumin Albumin/Globulin Ratio 03/12/19 Unknown WBC RBC Hgb Hct MCV MCH MCHC RDW Plt Count [place] % (Auto) Add Manual Diff Total Counted Seg Neuts % (Manual) Band Neutrophils % Lymphocytes % (Manual) Reactive Lymphs % (Man) Monocytes % (Manual) Eosinophils % (Manual) Basophils % (Manual) Metamyelocytes % Myelocytes % Promyelocytes % Blast Cells % Nucleated RBC % Seg Neutrophils # Man Band Neutrophils # Lymphocytes # (Manual) Abs React Lymphs (Man) Monocytes # (Manual) Eosinophils # (Manual) Basophils # (Manual) Metamyelocytes # Myelocytes # Promyelocytes # Blast Cells # WBC Morphology Hypersegmented Neuts Hyposegmented Neuts Hypogranular Neuts Smudge Cells Toxic Granulation Toxic Vacuolation Dohle Bodies Pelger-Huet Anomaly Meng Rods Platelet Estimate Clumped Platelets Plt Clumps, EDTA Large Platelets Giant Platelets Platelet Satelliting Plt Morphology Comment RBC Morphology Dimorphic RBCs Polychromasia Hypochromasia Poikilocytosis Anisocytosis Microcytosis Macrocytosis Spherocytes Pappenheimer Bodies Sickle Cells Target Cells Tear Drop Cells Ovalocytes Stomatocytes Helmet Cells Zaman-[place] Bodies [place] Cells Bite Cells Crenated Cell Elliptocytes Acanthocytes (Spur) Rouleaux Hemoglobin C Crystals Schistocytes Malaria parasites Santy Bodies Hem Pathologist Commnt PT INR APTT ABG pH ABG pCO2 ABG pO2 ABG HCO3 ABG O2 Saturation ABG O2 Content ABG Base Excess ABG Hemoglobin ABG Carboxyhemoglobin ABG Methemoglobin Oxyhemoglobin FiO2 Sodium Potassium Chloride Carbon Dioxide Anion Gap BUN Creatinine Estimated GFR BUN/Creatinine Ratio Glucose POC Glucose Calcium Total Bilirubin 8.90 H Direct Bilirubin 7.4 H Indirect Bilirubin 1.5 AST 2116 H ALT 767 H Alkaline Phosphatase 57 Ammonia Total Protein 5.1 L Albumin 2.3 L Albumin/Globulin Ratio 0.8
[2019-03-12] MEDS: PROTONIX IV SCH (22:42)
[2019-03-13] MEDS: D5/0.45NS 1,000 ML IV SCH ×3 (01:00→20:53)
[2019-03-13 04:15] LABS: ABG HCO3 25.4 mmol/L (20.0-26.0); ABG Methemoglobin 0.6 % (0.0-1.5); ABG PCO2 39.1 mm Hg; ABG PH 7.43 pH Units (7.350-7.450); ABG PO2 62.5 mm Hg (80.0-90.0)
[2019-03-13 04:26] LABS: Hemoglobin 6.8 gm/dl (11.8-15.2); Mean Corpuscular HGB Conc 35 % (32-34); Mean Corpuscular Volume 94 fl (84-94); Red Blood Count 2.09 M/mm3 (3.65-5.03)
[2019-03-13 04:35] LABS: Hematocrit 19.6 % (35.5-45.6); Platelet Count 44 K/mm3 (140-440); Red Cell Distribution Width 20.2 % (13.2-15.2)
[2019-03-13 04:41] LABS: Calcium 6.3 mg/dL (8.4-10.2)
--- NOTE | 2019-03-13 04:49 | XRay Report ---
CHEST 1 VIEW [id number] INDICATION / CLINICAL INFORMATION: follow up respiratory failure. COMPARISON: 03/12/2019 FINDINGS: SUPPORT DEVICES: Stable HEART / MEDIASTINUM: Stable LUNGS / PLEURA: Small bilateral pleural effusions and bibasilar areas of atelectasis and infiltrate c ontinue without significant change. No pneumothorax. ADDITIONAL FINDINGS: No significant additional findings. IMPRESSION: No significant changes Signer Name: Ta Waterman MD Signed: 03/13/2019 4:44 AM Workstation Name: [id number]
[2019-03-13] MEDS: KCL 20MEQ/100ML 20 MEQ/100 ML BAG IV SCH ×2 (05:55→07:26)
[2019-03-13 06:45] LABS: Total Cells Counted 100
[2019-03-13 06:46] LABS: Anisocytosis 1+; Platelet Estimate Consistent w Auto; Stomatocytes 1+
[2019-03-13] MEDS: ZOSYN/NS 2.25 GM/50ML 2.25 GM/50 ML BAG IV SCH ×3 (07:26→22:25)
--- NOTE | 2019-03-13 07:51 | Progress Note ---
Assessment and Plan Acute renal failure, likely ATN - nephrology consulted - renal function did not improve with iv fluid, minimal urine outpt - started on HD since 03/11 with vascath Acute GI bleed due to large esophageal varices - s/p EGD by GI on 03/09, findings are following 1. A pool of blood in the fundus and cardia, not completely cleared out. 2. Blood in the distal esophagus. 3. 3-4 columns of large varices in the mid and distal esophagus. Variceal banding ligation performed with 5 bands placed successfully. 4. No obvious signs of gastric varices noted. 5. No other obvious source of bleeding noted in the stomach or the examined portion of the duodenum. -Per GI Continue with PPI IV and octreotide drip x 76 hr. - s/p 4 units PRBC transfusion, cont to monitor h/h /Acute blood loss anemia, - Due to bleeding esophageal varises and DIC - s/p 4 units blood transfusion, monitor h/h Hypertensive vs septic shock due to acute blood loss - on pressors, s/p blood transfusion, cont iv fluid - cont abx, follow cx - wean off pressor as tolerated DIC, s/p FFP and cryoprecipitate transfusion, consulted Dr Sparks - monitor PT/INR Coagulopathy, due to hepatic cirrhosis, monitor PT/INR history of alcohol abuse, placed on versad Acute respiratory failure, cont nebs, CC consulted SIRS versus sepsis with severe lactic acidosis and leukocytosis - chopra Cx, cont abx till Cx negative Hyperkalemia, resolved Hypernatremia, cont iv fluid, monitor BMP Elevated LFT, from alcoholic LD, cont to trend Alcoholic hepatic cirrhosis, GI following, monitor LFT DVT Px, SCD - Patient is critically ill with a very poor prognosis The high probability of a clinically significant, sudden or life threatening deterioration of the [multiple] system(s) required my full and direct attention, intervention and personal management. The aggregate critical care time was [45] minutes. This time is in addition to time spent performing reported procedures but includes the following: [x] Data Review and interpretation [x] Patient assessment and monitoring of vital signs [x] Documentation [x] Medication orders and management Subjective Date of service: 03/12/19 Principal diagnosis: Ac. GI bleed; hemorrhagic shock; Ac. hypoxemic resp failure; ADRIANNE deandre SOLORIO Interval history: patient seen and examined Intubated, sedated Mother at bedside - updated Cr cont to trend up - s/p HD yesterday Objective - Exam Narrative Exam: General appearance: Present: intubated - EENT Eyes: PERRL, EOM intact ENT: other, no thrush Ears: bilateral: normal - Neck Neck: supple, normal ROM - Respiratory Respiratory effort: normal Respiratory: bilateral: CTA - Breasts Breasts: normal - Cardiovascular Rhythm: regular Heart Sounds: Present: S1 & S2. Absent: gallop, rub Extremities: pulses intact, No edema, normal color, Full ROM - Gastrointestinal General gastrointestinal: Present: soft, non-tender, non-distended, normal bowel sounds - Genitourinary Male genitourinary: normal - Integumentary Integumentary: clear, warm, dry - Musculoskeletal Musculoskeletal: other (no joint swelling) - Neurologic Neurologic: moves all extremities - Psychiatric Psychiatric: other (unable to assess - on vent) - Constitutional Vitals: Vital Signs - 12hr 03/12/19 03/12/19 03/12/19 20:00 20:01 20:02 Temperature 97.9 F Pulse Rate 105 H 106 H 108 H Pulse Rate [ 107 H From Monitor] Pulse Rate [ 107 H Left Dorsalis Pedis] Respiratory 17 18 Rate Blood Pressure 113/71 113/71 113/71 O2 Sat by Pulse 98 98 98 Oximetry 03/12/19 03/12/19 03/12/19 20:15 20:30 20:45 Temperature Pulse Rate 111 H 104 H 104 H Pulse Rate [ From Monitor] Pulse Rate [ Left Dorsalis Pedis] Respiratory 23 18 16 Rate Blood Pressure 131/74 116/64 115/65 O2 Sat by Pulse 98 98 98 Oximetry 03/12/19 03/12/19 03/12/19 21:00 21:15 21:30 Temperature Pulse Rate 103 H 104 H 101 H Pulse Rate [ From Monitor] Pulse Rate [ Left Dorsalis Pedis] Respiratory 16 17 17 Rate Blood Pressure 111/63 120/67 115/64 O2 Sat by Pulse 100 100 Oximetry 03/12/19 03/12/19 03/12/19 21:45 22:00 22:15 Temperature Pulse Rate 116 H 107 H 111 H Pulse Rate [ From Monitor] Pulse Rate [ Left Dorsalis Pedis] Respiratory 21 19 17 Rate Blood Pressure 126/77 123/73 131/77 O2 Sat by Pulse 96 98 96 Oximetry 03/12/19 03/12/19 03/12/19 22:30 22:45 23:00 Temperature Pulse Rate 105 H 104 H 108 H Pulse Rate [ From Monitor] Pulse Rate [ Left Dorsalis Pedis] Respiratory 17 16 17 Rate Blood Pressure 113/68 109/60 109/64 O2 Sat by Pulse 99 99 100 Oximetry 03/12/19 03/12/19 03/12/19 23:07 23:15 23:27 Temperature 99 F Pulse Rate 114 H 111 H Pulse Rate [ From Monitor] Pulse Rate [ Left Dorsalis Pedis] Respiratory 19 Rate Blood Pressure 109/64 105/69 O2 Sat by Pulse 100 98 Oximetry 03/12/19 03/12/19 03/13/19 23:30 23:45 00:00 Temperature Pulse Rate 114 H 105 H 114 H Pulse Rate [ 111 H From Monitor] Pulse Rate [ 111 H Left Dorsalis Pedis] Respiratory 22 18 20 Rate Blood Pressure 106/76 102/69 94/70 O2 Sat by Pulse 97 99 98 Oximetry 03/13/19 03/13/19 03/13/19 00:15 00:30 00:46 Temperature Pulse Rate 110 H 111 H 127 H Pulse Rate [ From Monitor] Pulse Rate [ Left Dorsalis Pedis] Respiratory 18 19 25 H Rate Blood Pressure 96/66 109/70 112/76 O2 Sat by Pulse 97 97 95 Oximetry 03/13/19 03/13/19 03/13/19 01:00 01:15 01:30 Temperature Pulse Rate 106 H 109 H 110 H Pulse Rate [ From Monitor] Pulse Rate [ Left Dorsalis Pedis] Respiratory 18 17 17 Rate Blood Pressure 117/63 111/62 111/62 O2 Sat by Pulse 100 100 Oximetry 03/13/19 03/13/19 03/13/19 01:45 02:00 02:16 Temperature Pulse Rate 107 H 112 H 139 H Pulse Rate [ From Monitor] Pulse Rate [ Left Dorsalis Pedis] Respiratory 17 19 37 H Rate Blood Pressure 110/63 117/64 149/88 O2 Sat by Pulse 100 100 95 Oximetry 03/13/19 03/13/19 03/13/19 02:30 02:45 03:00 Temperature Pulse Rate 154 H 123 H 118 H Pulse Rate [ From Monitor] Pulse Rate [ Left Dorsalis Pedis] Respiratory 34 H 19 17 Rate Blood Pressure 149/88 136/77 128/66 O2 Sat by Pulse 85 95 96 Oximetry 03/13/19 03/13/19 03/13/19 03:15 03:30 03:45 Temperature Pulse Rate 113 H 114 H 118 H Pulse Rate [ From Monitor] Pulse Rate [ Left Dorsalis Pedis] Respiratory 16 15 18 Rate Blood Pressure 123/52 110/49 97/61 O2 Sat by Pulse 95 96 95 Oximetry 03/13/19 03/13/19 03/13/19 03:47 04:00 04:15 Temperature 100.4 F H Pulse Rate 108 H 110 H Pulse Rate [ 110 H From Monitor] Pulse Rate [ 110 H Left Dorsalis Pedis] Respiratory 18 17 Rate Blood Pressure 99/41 92/50 O2 Sat by Pulse 96 98 Oximetry 03/13/19 03/13/19 03/13/19 04:29 04:30 04:45 Temperature Pulse Rate 109 H 110 H 108 H Pulse Rate [ From Monitor] Pulse Rate [ Left Dorsalis Pedis] Respiratory 16 15 Rate Blood Pressure 97/45 97/45 104/46 O2 Sat by Pulse 96 96 96 Oximetry 03/13/19 03/13/19 03/13/19 05:00 05:15 05:30 Temperature Pulse Rate 107 H 107 H 108 H Pulse Rate [ From Monitor] Pulse Rate [ Left Dorsalis Pedis] Respiratory 17 17 17 Rate Blood Pressure 97/45 95/43 102/44 O2 Sat by Pulse 96 96 96 Oximetry 03/13/19 03/13/19 03/13/19 05:45 06:00 06:16 Temperature Pulse Rate 109 H 132 H 147 H Pulse Rate [ From Monitor] Pulse Rate [ Left Dorsalis Pedis] Respiratory 18 16 14 Rate Blood Pressure 111/50 111/50 127/68 O2 Sat by Pulse 96 93 84 Oximetry 03/13/19 03/13/19 03/13/19 06:30 06:45 07:00 Temperature Pulse Rate 117 H 110 H 106 H Pulse Rate [ From Monitor] Pulse Rate [ Left Dorsalis Pedis] Respiratory 21 17 15 Rate Blood Pressure 127/78 119/67 111/61 O2 Sat by Pulse 98 99 Oximetry 03/13/19 03/13/19 07:15 07:30 Temperature Pulse Rate 106 H 109 H Pulse Rate [ From Monitor] Pulse Rate [ Left Dorsalis Pedis] Respiratory 17 18 Rate Blood Pressure 107/51 116/59 O2 Sat by Pulse 98 97 Oximetry - Labs CBC & Chem 7: 03/13/19 04:11 03/13/19 04:11 Labs: Abnormal lab results 03/12/19 03/12/19 03/12/19 Range/Units 07:40 07:40 08:40 WBC (4.5-11.0) K/mm3 RBC 2.24 L (3.65-5.03) M/mm3 Hgb 7.4 L (11.8-15.2) gm/dl Hct 20.9 L (35.5-45.6) % MCH 33 H (28-32) pg MCHC 35 H (32-34) % RDW 19.0 H (13.2-15.2) % Plt Count 45 L (140-440) K/mm3 Seg Neuts % (Manual) 76.0 H (40.0-70.0) % Lymphocytes % (Manual) (13.4-35.0) % Monocytes % (Manual) (0.0-7.3) % Eosinophils % (Manual) (0.0-4.3) % Basophils % (Manual) (0.0-1.8) % Nucleated RBC % 11.0 H (0.0-0.9) % Seg Neutrophils # Man (1.8-7.7) K/mm3 Lymphocytes # (Manual) 1.1 L (1.2-5.4) K/mm3 PT 22.4 H (12.2-14.9) Sec. INR 2.02 H (0.87-1.13) APTT 45.4 H (24.2-36.6) Sec. ABG pO2 (80.0-90.0) mm Hg ABG Hemoglobin (14.0-18.0) gm/dl Oxyhemoglobin (95.0-99.0) % Potassium (3.6-5.0) mmol/L BUN (9-20) mg/dL Creatinine (0.8-1.5) mg/dL POC Glucose 132 H (70-105) Calcium (8.4-10.2) mg/dL Total Bilirubin (0.1-1.2) mg/dL Direct Bilirubin (0-0.2) mg/dL AST (5-40) units/L ALT (7-56) units/L Total Protein (6.3-8.2) g/dL Albumin (3.9-5) g/dL 03/12/19 03/12/19 03/12/19 Range/Units 12:00 16:51 Unknown WBC (4.5-11.0) K/mm3 RBC (3.65-5.03) M/mm3 Hgb (11.8-15.2) gm/dl Hct (35.5-45.6) % MCH (28-32) pg MCHC (32-34) % RDW (13.2-15.2) % Plt Count (140-440) K/mm3 Seg Neuts % (Manual) (40.0-70.0) % Lymphocytes % (Manual) (13.4-35.0) % Monocytes % (Manual) (0.0-7.3) % Eosinophils % (Manual) (0.0-4.3) % Basophils % (Manual) (0.0-1.8) % Nucleated RBC % (0.0-0.9) % Seg Neutrophils # Man (1.8-7.7) K/mm3 Lymphocytes # (Manual) (1.2-5.4) K/mm3 PT (12.2-14.9) Sec. INR (0.87-1.13) APTT (24.2-36.6) Sec. ABG pO2 (80.0-90.0) mm Hg ABG Hemoglobin (14.0-18.0) gm/dl Oxyhemoglobin (95.0-99.0) % Potassium (3.6-5.0) mmol/L BUN (9-20) mg/dL Creatinine (0.8-1.5) mg/dL POC Glucose 160 H 122 H (70-105) Calcium (8.4-10.2) mg/dL Total Bilirubin 8.90 H (0.1-1.2) mg/dL Direct Bilirubin 7.4 H (0-0.2) mg/dL AST 2116 H (5-40) units/L ALT 767 H (7-56) units/L Total Protein 5.1 L (6.3-8.2) g/dL Albumin 2.3 L (3.9-5) g/dL 0903/13/19 03/13/19 Range/Units 03:45 04:11 04:11 WBC 4.2 L (4.5-11.0) K/mm3 RBC 2.09 L (3.65-5.03) M/mm3 Hgb 6.8 L (11.8-15.2) gm/dl Hct 19.6 L* (35.5-45.6) % MCH 33 H (28-32) pg MCHC 35 H (32-34) % RDW 20.2 H (13.2-15.2) % Plt Count 44 L (140-440) K/mm3 Seg Neuts % (Manual) (40.0-70.0) % Lymphocytes % (Manual) 7.0 L (13.4-35.0) % Monocytes % (Manual) 32.0 H (0.0-7.3) % Eosinophils % (Manual) 5.0 H (0.0-4.3) % Basophils % (Manual) 2.0 H (0.0-1.8) % Nucleated RBC % 12.0 H (0.0-0.9) % Seg Neutrophils # Man 0.0 L (1.8-7.7) K/mm3 Lymphocytes # (Manual) 0.0 L (1.2-5.4) K/mm3 PT (12.2-14.9) Sec. INR (0.87-1.13) APTT (24.2-36.6) Sec. ABG pO2 62.5 L (80.0-90.0) mm Hg ABG Hemoglobin 7.6 L (14.0-18.0) gm/dl Oxyhemoglobin 92.3 L (95.0-99.0) % Potassium 3.0 L (3.6-5.0) mmol/L BUN 27 H (9-20) mg/dL Creatinine 3.7 H (0.8-1.5) mg/dL POC Glucose (70-105) Calcium 6.3 L (8.4-10.2) mg/dL Total Bilirubin (0.1-1.2) mg/dL Direct Bilirubin (0-0.2) mg/dL AST (5-40) units/L ALT (7-56) units/L Total Protein (6.3-8.2) g/dL Albumin (3.9-5) g/dL
--- NOTE | 2019-03-13 07:54 | Progress Note ---
Assessment and Plan Acute renal failure, likely ATN - nephrology consulted - renal function did not improve with iv fluid, minimal urine outpt - started on HD since 03/11 with vascath X2 untill today Acute GI bleed due to large esophageal varices - s/p EGD by GI on 03/09, findings are following 1. A pool of blood in the fundus and cardia, not completely cleared out. 2. Blood in the distal esophagus. 3. 3-4 columns of large varices in the mid and distal esophagus. Variceal banding ligation performed with 5 bands placed successfully. 4. No obvious signs of gastric varices noted. 5. No other obvious source of bleeding noted in the stomach or the examined portion of the duodenum. -Per GI Continue with PPI IV and octreotide drip x 76 hr. - s/p 4 units PRBC transfusion, cont to monitor h/h /Acute blood loss anemia, - Due to bleeding esophageal varises and DIC - s/p 4 units blood transfusion, monitor h/h Hypertensive vs septic shock due to acute blood loss - on pressors, s/p blood transfusion, cont iv fluid - cont abx, follow cx - wean off pressor as tolerated DIC, s/p FFP and cryoprecipitate transfusion, consulted Dr Sparks - monitor PT/INR Coagulopathy with pancytopenia, due to hepatic cirrhosis, monitor PT/INR/CBC history of alcohol abuse, placed on versad Acute respiratory failure, cont nebs, CC consulted SIRS versus sepsis with severe lactic acidosis and leukocytosis - blood Cx negative, possible aspiration PNA, cont abx till gets extubated Hyperkalemia, resolved Hypernatremia, cont iv fluid, monitor BMP Elevated LFT, from alcoholic LD, cont to trend Alcoholic hepatic cirrhosis, GI following, monitor LFT DVT Px, SCD - Patient is critically ill with a very poor prognosis The high probability of a clinically significant, sudden or life threatening deterioration of the [multiple] system(s) required my full and direct attention, intervention and personal management. The aggregate critical care time was [45] minutes. This time is in addition to time spent performing reported procedures but includes the following: [x] Data Review and interpretation [x] Patient assessment and monitoring of vital signs [x] Documentation [x] Medication orders and management Subjective Date of service: 03/13/19 Principal diagnosis: Ac. GI bleed; hemorrhagic shock; Ac. hypoxemic resp failure; ADRIANNE venkateshharjinder ATN Interval history: patient seen and examined Intubated, sedated Mother at bedside - updated s/p HD x2 Spiking low grade temp Objective - Exam Narrative Exam: General appearance: Present: intubated - EENT Eyes: PERRL, EOM intact ENT: other, no thrush Ears: bilateral: normal - Neck Neck: supple, normal ROM - Respiratory Respiratory effort: normal Respiratory: bilateral: CTA - Breasts Breasts: normal - Cardiovascular Rhythm: regular Heart Sounds: Present: S1 & S2. Absent: gallop, rub Extremities: pulses intact, No edema, normal color, Full ROM - Gastrointestinal General gastrointestinal: Present: soft, non-tender, non-distended, normal bowel sounds - Genitourinary Male genitourinary: normal - Integumentary Integumentary: clear, warm, dry - Musculoskeletal Musculoskeletal: other (no joint swelling) - Neurologic Neurologic: moves all extremities - Psychiatric Psychiatric: other (unable to assess - on vent) - Constitutional Vitals: Vital Signs - 12hr 03/12/19 03/12/19 03/12/19 20:00 20:01 20:02 Temperature 97.9 F Pulse Rate 105 H 106 H 108 H Pulse Rate [ 107 H From Monitor] Pulse Rate [ 107 H Left Dorsalis Pedis] Respiratory 17 18 Rate Blood Pressure 113/71 113/71 113/71 O2 Sat by Pulse 98 98 98 Oximetry 03/12/19 03/12/19 03/12/19 20:15 20:30 20:45 Temperature Pulse Rate 111 H 104 H 104 H Pulse Rate [ From Monitor] Pulse Rate [ Left Dorsalis Pedis] Respiratory 23 18 16 Rate Blood Pressure 131/74 116/64 115/65 O2 Sat by Pulse 98 98 98 Oximetry 03/12/19 03/12/19 03/12/19 21:00 21:15 21:30 Temperature Pulse Rate 103 H 104 H 101 H Pulse Rate [ From Monitor] Pulse Rate [ Left Dorsalis Pedis] Respiratory 16 17 17 Rate Blood Pressure 111/63 120/67 115/64 O2 Sat by Pulse 100 100 Oximetry 03/12/19 03/12/19 03/12/19 21:45 22:00 22:15 Temperature Pulse Rate 116 H 107 H 111 H Pulse Rate [ From Monitor] Pulse Rate [ Left Dorsalis Pedis] Respiratory 21 19 17 Rate Blood Pressure 126/77 123/73 131/77 O2 Sat by Pulse 96 98 96 Oximetry 03/12/19 03/12/19 03/12/19 22:30 22:45 23:00 Temperature Pulse Rate 105 H 104 H 108 H Pulse Rate [ From Monitor] Pulse Rate [ Left Dorsalis Pedis] Respiratory 17 16 17 Rate Blood Pressure 113/68 109/60 109/64 O2 Sat by Pulse 99 99 100 Oximetry 03/12/19 03/12/19 03/12/19 23:07 23:15 23:27 Temperature 99 F Pulse Rate 114 H 111 H Pulse Rate [ From Monitor] Pulse Rate [ Left Dorsalis Pedis] Respiratory 19 Rate Blood Pressure 109/64 105/69 O2 Sat by Pulse 100 98 Oximetry 03/12/19 03/12/19 03/13/19 23:30 23:45 00:00 Temperature Pulse Rate 114 H 105 H 114 H Pulse Rate [ 111 H From Monitor] Pulse Rate [ 111 H Left Dorsalis Pedis] Respiratory 22 18 20 Rate Blood Pressure 106/76 102/69 94/70 O2 Sat by Pulse 97 99 98 Oximetry 03/13/19 03/13/19 03/13/19 00:15 00:30 00:46 Temperature Pulse Rate 110 H 111 H 127 H Pulse Rate [ From Monitor] Pulse Rate [ Left Dorsalis Pedis] Respiratory 18 19 25 H Rate Blood Pressure 96/66 109/70 112/76 O2 Sat by Pulse 97 97 95 Oximetry 03/13/19 03/13/19 03/13/19 01:00 01:15 01:30 Temperature Pulse Rate 106 H 109 H 110 H Pulse Rate [ From Monitor] Pulse Rate [ Left Dorsalis Pedis] Respiratory 18 17 17 Rate Blood Pressure 117/63 111/62 111/62 O2 Sat by Pulse 100 100 Oximetry 03/13/19 03/13/19 03/13/19 01:45 02:00 02:16 Temperature Pulse Rate 107 H 112 H 139 H Pulse Rate [ From Monitor] Pulse Rate [ Left Dorsalis Pedis] Respiratory 17 19 37 H Rate Blood Pressure 110/63 117/64 149/88 O2 Sat by Pulse 100 100 95 Oximetry 03/13/19 03/13/19 03/13/19 02:30 02:45 03:00 Temperature Pulse Rate 154 H 123 H 118 H Pulse Rate [ From Monitor] Pulse Rate [ Left Dorsalis Pedis] Respiratory 34 H 19 17 Rate Blood Pressure 149/88 136/77 128/66 O2 Sat by Pulse 85 95 96 Oximetry 03/13/19 03/13/19 03/13/19 03:15 03:30 03:45 Temperature Pulse Rate 113 H 114 H 118 H Pulse Rate [ From Monitor] Pulse Rate [ Left Dorsalis Pedis] Respiratory 16 15 18 Rate Blood Pressure 123/52 110/49 97/61 O2 Sat by Pulse 95 96 95 Oximetry 03/13/19 03/13/19 03/13/19 03:47 04:00 04:15 Temperature 100.4 F H Pulse Rate 108 H 110 H Pulse Rate [ 110 H From Monitor] Pulse Rate [ 110 H Left Dorsalis Pedis] Respiratory 18 17 Rate Blood Pressure 99/41 92/50 O2 Sat by Pulse 96 98 Oximetry 03/13/19 03/13/19 03/13/19 04:29 04:30 04:45 Temperature Pulse Rate 109 H 110 H 108 H Pulse Rate [ From Monitor] Pulse Rate [ Left Dorsalis Pedis] Respiratory 16 15 Rate Blood Pressure 97/45 97/45 104/46 O2 Sat by Pulse 96 96 96 Oximetry 03/13/19 03/13/19 03/13/19 05:00 05:15 05:30 Temperature Pulse Rate 107 H 107 H 108 H Pulse Rate [ From Monitor] Pulse Rate [ Left Dorsalis Pedis] Respiratory 17 17 17 Rate Blood Pressure 97/45 95/43 102/44 O2 Sat by Pulse 96 96 96 Oximetry 03/13/19 03/13/19 03/13/19 05:45 06:00 06:16 Temperature Pulse Rate 109 H 132 H 147 H Pulse Rate [ From Monitor] Pulse Rate [ Left Dorsalis Pedis] Respiratory 18 16 14 Rate Blood Pressure 111/50 111/50 127/68 O2 Sat by Pulse 96 93 84 Oximetry 03/13/19 03/13/19 03/13/19 06:30 06:45 07:00 Temperature Pulse Rate 117 H 110 H 106 H Pulse Rate [ From Monitor] Pulse Rate [ Left Dorsalis Pedis] Respiratory 21 17 15 Rate Blood Pressure 127/78 119/67 111/61 O2 Sat by Pulse 98 99 Oximetry 03/13/19 03/13/19 07:15 07:30 Temperature Pulse Rate 106 H 109 H Pulse Rate [ From Monitor] Pulse Rate [ Left Dorsalis Pedis] Respiratory 17 18 Rate Blood Pressure 107/51 116/59 O2 Sat by Pulse 98 97 Oximetry - Labs CBC & Chem 7: 03/14/19 05:25 03/14/19 05:25 Labs: Abnormal lab results 03/12/19 03/12/19 03/12/19 Range/Units 07:40 07:40 08:40 WBC (4.5-11.0) K/mm3 RBC 2.24 L (3.65-5.03) M/mm3 Hgb 7.4 L (11.8-15.2) gm/dl Hct 20.9 L (35.5-45.6) % MCH 33 H (28-32) pg MCHC 35 H (32-34) % RDW 19.0 H (13.2-15.2) % Plt Count 45 L (140-440) K/mm3 Seg Neuts % (Manual) 76.0 H (40.0-70.0) % Lymphocytes % (Manual) (13.4-35.0) % Monocytes % (Manual) (0.0-7.3) % Eosinophils % (Manual) (0.0-4.3) % Basophils % (Manual) (0.0-1.8) % Nucleated RBC % 11.0 H (0.0-0.9) % Seg Neutrophils # Man (1.8-7.7) K/mm3 Lymphocytes # (Manual) 1.1 L (1.2-5.4) K/mm3 PT 22.4 H (12.2-14.9) Sec. INR 2.02 H (0.87-1.13) APTT 45.4 H (24.2-36.6) Sec. ABG pO2 (80.0-90.0) mm Hg ABG Hemoglobin (14.0-18.0) gm/dl Oxyhemoglobin (95.0-99.0) % Potassium (3.6-5.0) mmol/L BUN (9-20) mg/dL Creatinine (0.8-1.5) mg/dL POC Glucose 132 H (70-105) Calcium (8.4-10.2) mg/dL Total Bilirubin (0.1-1.2) mg/dL Direct Bilirubin (0-0.2) mg/dL AST (5-40) units/L ALT (7-56) units/L Total Protein (6.3-8.2) g/dL Albumin (3.9-5) g/dL 03/12/19 03/12/19 03/12/19 Range/Units 12:00 16:51 Unknown WBC (4.5-11.0) K/mm3 RBC (3.65-5.03) M/mm3 Hgb (11.8-15.2) gm/dl Hct (35.5-45.6) % MCH (28-32) pg MCHC (32-34) % RDW (13.2-15.2) % Plt Count (140-440) K/mm3 Seg Neuts % (Manual) (40.0-70.0) % Lymphocytes % (Manual) (13.4-35.0) % Monocytes % (Manual) (0.0-7.3) % Eosinophils % (Manual) (0.0-4.3) % Basophils % (Manual) (0.0-1.8) % Nucleated RBC % (0.0-0.9) % Seg Neutrophils # Man (1.8-7.7) K/mm3 Lymphocytes # (Manual) (1.2-5.4) K/mm3 PT (12.2-14.9) Sec. INR (0.87-1.13) APTT (24.2-36.6) Sec. ABG pO2 (80.0-90.0) mm Hg ABG Hemoglobin (14.0-18.0) gm/dl Oxyhemoglobin (95.0-99.0) % Potassium (3.6-5.0) mmol/L BUN (9-20) mg/dL Creatinine (0.8-1.5) mg/dL POC Glucose 160 H 122 H (70-105) Calcium (8.4-10.2) mg/dL Total Bilirubin 8.90 H (0.1-1.2) mg/dL Direct Bilirubin 7.4 H (0-0.2) mg/dL AST 2116 H (5-40) units/L ALT 767 H (7-56) units/L Total Protein 5.1 L (6.3-8.2) g/dL Albumin 2.3 L (3.9-5) g/dL 03/13/19 03/13/19 03/13/19 Range/Units 03:45 04:11 04:11 WBC 4.2 L (4.5-11.0) K/mm3 RBC 2.09 L (3.65-5.03) M/mm3 Hgb 6.8 L (11.8-15.2) gm/dl Hct 19.6 L* (35.5-45.6) % MCH 33 H (28-32) pg MCHC 35 H (32-34) % RDW 20.2 H (13.2-15.2) % Plt Count 44 L (140-440) K/mm3 Seg Neuts % (Manual) (40.0-70.0) % Lymphocytes % (Manual) 7.0 L (13.4-35.0) % Monocytes % (Manual) 32.0 H (0.0-7.3) % Eosinophils % (Manual) 5.0 H (0.0-4.3) % Basophils % (Manual) 2.0 H (0.0-1.8) % Nucleated RBC % 12.0 H (0.0-0.9) % Seg Neutrophils # Man 0.0 L (1.8-7.7) K/mm3 Lymphocytes # (Manual) 0.0 L (1.2-5.4) K/mm3 PT (12.2-14.9) Sec. INR (0.87-1.13) APTT (24.2-36.6) Sec. ABG pO2 62.5 L (80.0-90.0) mm Hg ABG Hemoglobin 7.6 L (14.0-18.0) gm/dl Oxyhemoglobin 92.3 L (95.0-99.0) % Potassium 3.0 L (3.6-5.0) mmol/L BUN 27 H (9-20) mg/dL Creatinine 3.7 H (0.8-1.5) mg/dL POC Glucose (70-105) Calcium 6.3 L (8.4-10.2) mg/dL Total Bilirubin (0.1-1.2) mg/dL Direct Bilirubin (0-0.2) mg/dL AST (5-40) units/L ALT (7-56) units/L Total Protein (6.3-8.2) g/dL Albumin (3.9-5) g/dL
[2019-03-13] MEDS: VITAMIN K (ADULT ONLY) SUB-Q SCH (10:10)
[2019-03-13] MEDS: PROTONIX IV SCH ×2 (10:16→22:25)
[2019-03-13] MEDS: SODIUM CHLORIDE FLUSH SYRINGE 10 ML IV SCH (10:22)
[2019-03-13] MEDS ORDERED: NACL 0.9% 100 ML IV PRN (13:20)
--- NOTE | 2019-03-13 14:57 | Progress Note ---
Assessment and Plan 1. Variceal bleed - s/p banding. No evidence of ongoing GI bleed. 2. Alcoholic hepatitis/cirrhosis - very ill. In renal failure, which seems to be improving. Discriminant function = 46. Though he had a GI bleed, pt may benefit from trial of prednisolone - will give and monitor closely. Subjective Date of service: 03/13/19 Principal diagnosis: low plt - anemia Interval history: Pt on ventilator, but responding appropriately. Denies abd pain. Mother at bedside. Objective - Constitutional Vitals: Vital Signs - 12hr 03/13/19 03/13/19 03/13/19 03:00 03:15 03:30 Temperature Pulse Rate 118 H 113 H 114 H Pulse Rate [ From Monitor] Pulse Rate [ Left Dorsalis Pedis] Respiratory 17 16 15 Rate Blood Pressure 128/66 123/52 110/49 O2 Sat by Pulse 96 95 96 Oximetry 03/13/19 03/13/19 03/13/19 03:45 03:47 04:00 Temperature 100.4 F H Pulse Rate 118 H 108 H Pulse Rate [ 110 H From Monitor] Pulse Rate [ 110 H Left Dorsalis Pedis] Respiratory 18 18 Rate Blood Pressure 97/61 99/41 O2 Sat by Pulse 95 96 Oximetry 03/13/19 03/13/19 03/13/19 04:15 04:29 04:30 Temperature Pulse Rate 110 H 109 H 110 H Pulse Rate [ From Monitor] Pulse Rate [ Left Dorsalis Pedis] Respiratory 17 16 Rate Blood Pressure 92/50 97/45 97/45 O2 Sat by Pulse 98 96 96 Oximetry 03/13/19 03/13/19 03/13/19 04:45 05:00 05:15 Temperature Pulse Rate 108 H 107 H 107 H Pulse Rate [ From Monitor] Pulse Rate [ Left Dorsalis Pedis] Respiratory 15 17 17 Rate Blood Pressure 104/46 97/45 95/43 O2 Sat by Pulse 96 96 96 Oximetry 03/13/19 03/13/19 03/13/19 05:30 05:45 06:00 Temperature Pulse Rate 108 H 109 H 132 H Pulse Rate [ From Monitor] Pulse Rate [ Left Dorsalis Pedis] Respiratory 17 18 16 Rate Blood Pressure 102/44 111/50 111/50 O2 Sat by Pulse 96 96 93 Oximetry 03/13/19 03/13/19 03/13/19 06:16 06:30 06:45 Temperature Pulse Rate 147 H 117 H 110 H Pulse Rate [ From Monitor] Pulse Rate [ Left Dorsalis Pedis] Respiratory 14 21 17 Rate Blood Pressure 127/68 127/78 119/67 O2 Sat by Pulse 84 98 Oximetry 03/13/19 03/13/19 03/13/19 07:00 07:15 07:30 Temperature Pulse Rate 106 H 106 H 109 H Pulse Rate [ From Monitor] Pulse Rate [ Left Dorsalis Pedis] Respiratory 15 17 18 Rate Blood Pressure 111/61 107/51 116/59 O2 Sat by Pulse 99 98 97 Oximetry 03/13/19 03/13/19 03/13/19 07:45 08:00 12:00 Temperature 99.9 F H 98.6 F Pulse Rate 109 H 110 H Pulse Rate [ From Monitor] Pulse Rate [ Left Dorsalis Pedis] Respiratory 18 17 Rate Blood Pressure 110/62 104/53 O2 Sat by Pulse 97 97 Oximetry General appearance: Present: no acute distress, other (Intubated with ETT) - EENT Eyes: scleral icterus ENT: hearing intact - Respiratory Respiratory effort: normal Extremity abnormal: edema (2+) - Gastrointestinal General gastrointestinal: Present: soft, non-tender - Labs CBC & Chem 7: 03/13/19 08:04 03/13/19 04:11 Labs: Abnormal lab results 03/12/19 03/13/19 03/13/19 Range/Units 16:51 03:45 04:11 WBC 4.2 L (4.5-11.0) K/mm3 RBC 2.09 L (3.65-5.03) M/mm3 Hgb 6.8 L (11.8-15.2) gm/dl Hct 19.6 L* (35.5-45.6) % MCH 33 H (28-32) pg MCHC 35 H (32-34) % RDW 20.2 H (13.2-15.2) % Plt Count 44 L (140-440) K/mm3 Lymphocytes % (Manual) 7.0 L (13.4-35.0) % Monocytes % (Manual) 32.0 H (0.0-7.3) % Eosinophils % (Manual) 5.0 H (0.0-4.3) % Basophils % (Manual) 2.0 H (0.0-1.8) % Nucleated RBC % 12.0 H (0.0-0.9) % Seg Neutrophils # Man 0.0 L (1.8-7.7) K/mm3 Lymphocytes # (Manual) 0.0 L (1.2-5.4) K/mm3 ABG pO2 62.5 L (80.0-90.0) mm Hg ABG Hemoglobin 7.6 L (14.0-18.0) gm/dl Oxyhemoglobin 92.3 L (95.0-99.0) % Potassium (3.6-5.0) mmol/L BUN (9-20) mg/dL Creatinine (0.8-1.5) mg/dL POC Glucose 122 H (70-105) Calcium (8.4-10.2) mg/dL 03/13/19 03/13/19 03/13/19 Range/Units 04:11 08:04 12:04 WBC (4.5-11.0) K/mm3 RBC (3.65-5.03) M/mm3 Hgb 7.0 L (11.8-15.2) gm/dl Hct 20.0 L (35.5-45.6) % MCH (28-32) pg MCHC (32-34) % RDW (13.2-15.2) % Plt Count (140-440) K/mm3 Lymphocytes % (Manual) (13.4-35.0) % Monocytes % (Manual) (0.0-7.3) % Eosinophils % (Manual) (0.0-4.3) % Basophils % (Manual) (0.0-1.8) % Nucleated RBC % (0.0-0.9) % Seg Neutrophils # Man (1.8-7.7) K/mm3 Lymphocytes # (Manual) (1.2-5.4) K/mm3 ABG pO2 (80.0-90.0) mm Hg ABG Hemoglobin (14.0-18.0) gm/dl Oxyhemoglobin (95.0-99.0) % Potassium 3.0 L (3.6-5.0) mmol/L BUN 27 H (9-20) mg/dL Creatinine 3.7 H (0.8-1.5) mg/dL POC Glucose 114 H (70-105) Calcium 6.3 L (8.4-10.2) mg/dL Medications & Allergies - Medications Allergies/Adverse Reactions: Allergies No Known Allergies Allergy (Verified 03/08/19 12:31) Home Medications: Home Medications Medication Instructions Recorded Confirmed Last Taken Type No Known Home Medications [No 03/10/19 03/10/19 Unknown History Reported Home Medications] Active Medications: Generic Name Dose Route Start Last Admin Trade Name Freq PRN Reason Stop Dose Admin Acetaminophen 650 mg 03/09/19 13:00 03/12/19 06:50 Tylenol [place] 650 mg Q4H PRN Administration Pain, Mild (1-3) Albuterol 2.5 mg 03/08/19 14:56 Proventil IH Q3HRT PRN Shortness Of Breath Dextrose 50 ml 03/09/19 01:34 D50w (25gm) Syringe IV PRN PRN Hypoglycemia Fentanyl 50 mcg 03/11/19 17:41 Sublimaze IV Q10MIN PRN ANALGESIA Hydrophilic Ointment 1 applic 03/08/19 22:51 Vaseline Lip Therapy TP Q2HR PRN Dry Lips Norepinephrine 4 mg in 250 mls @ 7.5 mls/hr 03/09/19 04:00 03/09/19 16:15 Levophed Drip 4 Mg/Ns 250 Ml IV 0 mcg/min TITR CHARLIE 0 mls/hr Titration Protocol 2 MCG/MIN Phenylephrine HCl 100 mg/ 100 mls @ 3 mls/hr 03/09/19 08:45 03/12/19 17:00 Sodium Chloride IV 0 mcg/min TITR CHARLIE 0 mls/hr Titration Protocol 50 MCG/MIN Propofol 1,000 mg in 100 mls @ 2.61 mls/hr 03/11/19 02:00 03/12/19 10:15 Diprivan 10 Mg/Ml IV 0 mcg/kg/min TITR CHARLIE 0 mls/hr Titration Protocol 5 MCG/KG/MIN Sodium Chloride 100 mls @ 999 mls/hr 03/11/19 15:50 Nacl 0.9% IV JULIO CESAR PRN Hypotension Fentanyl Citrate 2,000 mcg in 100 mls @ 4.35 mls/hr 03/11/19 18:00 03/12/19 15:00 Fentanyl Drip Premix IV 0 mcg/kg/hr TITR CHARLIE 0 mls/hr Titration Protocol 1 MCG/KG/HR Dextrose/Sodium Chloride 1,000 mls @ 100 mls/hr 03/12/19 14:00 03/13/19 10:17 D5/0.45ns IV 100 mls/hr DIRECT CHARLIE Administration Sodium Chloride 100 mls @ 999 mls/hr 03/13/19 13:20 Nacl 0.9% IV JULIO CESAR PRN Hypotension Lorazepam 2 mg 03/08/19 14:57 03/10/19 22:43 Ativan IV 2 mg Q1HR PRN Administration CIWA-Ar 8-15 Metoclopramide HCl 5 mg 03/11/19 09:00 Reglan IV Q6H PRN Nausea And Vomiting Metoprolol Tartrate 5 mg 03/11/19 17:41 03/11/19 20:04 Lopressor IV 5 mg Q6HR PRN Administration Tachyarrhythmias Multi-Ingred Cream/Lotion/Oil/Oint 1 applic 03/08/19 22:51 Artificial Tears Ophth Oint OU Q4HR PRN Dry Eye(s) Pantoprazole Sodium 40 mg 03/12/19 22:00 03/13/19 10:16 Protonix IV 40 mg BID CHARLIE Administration Phytonadione 10 mg 03/12/19 14:00 03/13/19 10:10 Vitamin K (Adult Only) SUB-Q 03/14/19 10:01 10 mg DAILY CHARLIE Administration Sodium Chloride 10 ml 03/08/19 22:00 03/13/19 10:22 Sodium Chloride Flush Syringe 10 Ml IV 10 ml BID CHARLIE Administration Sodium Chloride 10 ml 03/08/19 14:56 Sodium Chloride Flush Syringe 10 Ml IV PRN PRN LINE FLUSH
--- NOTE | 2019-03-13 15:14 | Progress Note ---
Assessment and Plan Acute GI bleed due to large esophageal varices, with hemorrhagic shock s/p EGD by GI, Acute hypoxemic respiratory failure on MVS Possible septic shock, temperature spike Severe lactic acidosis History of alcohol abuse disorder Acute renal failure, deandre ATJoanna Hypernatremia Alcoholic hepatic cirrhosis - repeat PSV trial this evening and if tolerates will get ABG after 2 hours - will discuss negative fluid balance with gmat tutor viz-a-viz Lasix vs repeat UF - continue Vitamin K 10 mg SQ daily X 3 days - continue daily SAT's and SBT's as tolerated - likely stop IVF after next bag - continue to use fentanyl re: ? pain component to tachyarrythmia - target RASS 0 to -1 - continue prn metoprolol for pulse >/= 130/min - continue HD/UF per nephrology prescription and for volume control - Continue with supportive blood transfusions depending on Hb level and rate of bleeding - Wean vasopressor support to keep MAP> 60-65 - Monitor hemodynamics closely - VAP bundle addressed - wean FiO2 for sats > 90% at this point (Anemia improved) - Transfuse to keep HgB > 7g/dL, Platelets >/= 50K - DIC panel ordered and addressed - continue hoffman catheter - Hypotonic solutions to treat hypernatremia - continue CIWA protocol - PPI, therapeutic dosing, change continuous infusion to BID dosing once ok with G.I. team - continue Strict NPO for now (no NGT or OGT placement to avoid dislodging the bands) - begin daily SAT and SBT assessment as tolerated - Octreotide infusion for >/= 72 hours (will defere to G.I. team) - continue to avoid nephrotoxins, adjust all medications for GFR and CRCL - SCDs for VTE prophylaxis - continue accuchecks q4 with hypoglycemia protocol; target BG of 140-180 mg/dl acutely - continue to monitor for TRALI - continue other care per attending / other consultants ... re-evaluate in am & prn ..... care plan discussed with his mum at bedside CONDITION: CRITIAL PROGNOSIS: GUARDED CODE STATUS: FULL CODE Discussed extensively with RT/RN and care team in ICU IDT rounds The high probability of a clinically significant, sudden or life threatening deterioration of the respiratory, gastroenterology/hepatology, renal systems required my full and direct attention, intervention and personal management. The aggregate critical care time was 34 minutes. This time is in addition to time spent performing reported procedures but includes the following: [x] Data Review and interpretation [x] Patient assessment and monitoring of vital signs [x] Documentation [x] Medication orders and management Subjective Date of service: 03/13/19 Principal diagnosis: Ac. GI bleed; hemorrhagic shock; Ac. hypoxemic resp failure; ADRIANNE likley ATN Interval history: Patient is seen today for: Ac. GI bleed (esophageal varices); hemorrhagic shock; Ac. hypoxemic resp failure; Possible septic shock; Severe lactic acidosis; H/O alcohol abuse disorder; Acute renal failure, likely ATN; Hypernatremia Seen and examined at bedside; 24hour events reviewed; nursing and respiratory care staff consulted; no adverse overnight events reported to me; resting in bed; remains on MVS; failed PSV trials earlier; overall more responsive though; mother in room; No N/V/F/C; making urine better and no dialysis today Objective Vital Signs - 12hr 03/13/19 03/13/19 03/13/19 03:15 03:30 03:45 Temperature Pulse Rate 113 H 114 H 118 H Pulse Rate [ From Monitor] Pulse Rate [ Left Dorsalis Pedis] Respiratory 16 15 18 Rate Blood Pressure 123/52 110/49 97/61 O2 Sat by Pulse 95 96 95 Oximetry 03/13/19 03/13/19 03/13/19 03:47 04:00 04:15 Temperature 100.4 F H Pulse Rate 108 H 110 H Pulse Rate [ 110 H From Monitor] Pulse Rate [ 110 H Left Dorsalis Pedis] Respiratory 18 17 Rate Blood Pressure 99/41 92/50 O2 Sat by Pulse 96 98 Oximetry 03/13/19 03/13/19 03/13/19 04:29 04:30 04:45 Temperature Pulse Rate 109 H 110 H 108 H Pulse Rate [ From Monitor] Pulse Rate [ Left Dorsalis Pedis] Respiratory 16 15 Rate Blood Pressure 97/45 97/45 104/46 O2 Sat by Pulse 96 96 96 Oximetry 03/13/19 03/13/19 03/13/19 05:00 05:15 05:30 Temperature Pulse Rate 107 H 107 H 108 H Pulse Rate [ From Monitor] Pulse Rate [ Left Dorsalis Pedis] Respiratory 17 17 17 Rate Blood Pressure 97/45 95/43 102/44 O2 Sat by Pulse 96 96 96 Oximetry 03/13/19 03/13/19 03/13/19 05:45 06:00 06:16 Temperature Pulse Rate 109 H 132 H 147 H Pulse Rate [ From Monitor] Pulse Rate [ Left Dorsalis Pedis] Respiratory 18 16 14 Rate Blood Pressure 111/50 111/50 127/68 O2 Sat by Pulse 96 93 84 Oximetry 03/13/19 03/13/19 03/13/19 06:30 06:45 07:00 Temperature Pulse Rate 117 H 110 H 106 H Pulse Rate [ From Monitor] Pulse Rate [ Left Dorsalis Pedis] Respiratory 21 17 15 Rate Blood Pressure 127/78 119/67 111/61 O2 Sat by Pulse 98 99 Oximetry 03/13/19 03/13/19 03/13/19 07:15 07:30 07:45 Temperature Pulse Rate 106 H 109 H 109 H Pulse Rate [ From Monitor] Pulse Rate [ Left Dorsalis Pedis] Respiratory 17 18 18 Rate Blood Pressure 107/51 116/59 110/62 O2 Sat by Pulse 98 97 97 Oximetry 03/13/19 03/13/19 08:00 12:00 Temperature 99.9 F H 98.6 F Pulse Rate 110 H Pulse Rate [ From Monitor] Pulse Rate [ Left Dorsalis Pedis] Respiratory 17 Rate Blood Pressure 104/53 O2 Sat by Pulse 97 Oximetry Constitutional: appears uncomfortable, other (young AM, normocephalic with mildly increased resp effort on MVS) Eyes: icteric ENT: oropharynx moist, other (ETT 23-24 cm YARED) Neck: supple, no lymphadenopathy, no JVD Effort: mildly labored Ascultation: Bilateral: diminished breath sounds, rhonchi Percussion: Bilateral: not dull Cardiovascular: regular rate and rhythm, other (Tachcardia, regular, S1,S2, no murmurs) Gastrointestinal: hypoactive bowel sounds, non-tender, non-distended Integumentary: normal Extremities: no cyanosis, no edema, cool, edema Neurologic: non-focal exam (grossly), pupils equal and round, CN II-XII normal, motor strength normal and, other (sedated lightly) Psychiatric: other (unable to assess / delirious) CBC and BMP: 03/14/19 05:25 03/14/19 05:25 ABG, PT/INR, D-dimer: ABG POC ABG pH 7.375 (7.35-7.45) 03/09/19 02:02 ABG pH 7.430 pH Units (7.350-7.450) 03/13/19 03:45 POC ABG pCO2 31.8 (35-45) L 03/09/19 02:02 ABG pCO2 39.1 mm Hg 03/13/19 03:45 POC ABG pO2 142 (80-105) H 03/09/19 02:02 ABG pO2 62.5 mm Hg (80.0-90.0) L 03/13/19 03:45 POC ABG HCO3 18.6 (22-26 mml/L) 03/09/19 02:02 POC ABG Total CO2 20 (23-27mmol/L) 03/09/19 02:02 POC ABG O2 Sat 99 03/09/19 02:02 ABG O2 Saturation 95.0 % (95.0-99.0) 03/13/19 03:45 PT/INR, D-dimer PT 22.4 Sec. (12.2-14.9) H 03/12/19 07:40 INR 2.02 (0.87-1.13) H 03/12/19 07:40 1494.02 ng/mlDDU (0-234) H 03/09/19 13:50 Abnormal lab findings: Abnormal Labs 03/08/19 03/08/19 03/08/19 09:34 12:57 12:59 WBC RBC 3.14 L Hgb 11.3 L Hct 33.3 L MCV 106 H MCH 36 H MCHC RDW 18.5 H Plt Count 61 L Lymph # Seg Neutrophils % Seg Neuts % (Manual) Lymphocytes % (Manual) 50.0 H Monocytes % (Manual) Eosinophils % (Manual) Basophils % (Manual) Nucleated RBC % Seg Neutrophils # Man Lymphocytes # (Manual) Monocytes # (Manual) PT 16.9 H INR 1.41 H APTT Fibrinogen D-Dimer POC ABG pH ABG pH POC ABG pCO2 POC ABG pO2 ABG pO2 ABG Hemoglobin Oxyhemoglobin Sodium Potassium Chloride Carbon Dioxide BUN Creatinine Glucose POC Glucose Lactic Acid Calcium Phosphorus Iron TIBC Total Bilirubin Direct Bilirubin AST ALT Total Protein Albumin Lipase Urine WBC (Auto) Plasma/Serum Alcohol 0.34 H Crossmatch 03/08/19 03/08/19 03/08/19 13:12 13:14 14:21 WBC RBC Hgb Hct MCV MCH MCHC RDW Plt Count Lymph # Seg Neutrophils % Seg Neuts % (Manual) Lymphocytes % (Manual) Monocytes % (Manual) Eosinophils % (Manual) Basophils % (Manual) Nucleated RBC % Seg Neutrophils # Man Lymphocytes # (Manual) Monocytes # (Manual) PT INR APTT Fibrinogen D-Dimer POC ABG pH ABG pH POC ABG pCO2 POC ABG pO2 ABG pO2 ABG Hemoglobin Oxyhemoglobin Sodium Potassium Chloride 89.4 L Carbon Dioxide 8 L* BUN Creatinine Glucose 74 L POC Glucose Lactic Acid Calcium Phosphorus Iron TIBC Total Bilirubin 4.70 H Direct Bilirubin AST 611 H ALT 153 H Total Protein Albumin Lipase Urine WBC (Auto) 18.0 H Plasma/Serum Alcohol Crossmatch See Detail 03/08/19 03/08/19 03/08/19 20:51 20:51 22:29 WBC 17.0 H RBC 2.21 L Hgb 8.0 L D Hct 26.8 L D MCV 121 H MCH 36 H MCHC 30 L RDW 20.5 H Plt Count 84 L Lymph # Seg Neutrophils % Seg Neuts % (Manual) 83.0 H Lymphocytes % (Manual) 8.0 L Monocytes % (Manual) 9.0 H Eosinophils % (Manual) Basophils % (Manual) Nucleated RBC % 1.0 H Seg Neutrophils # Man 14.1 H Lymphocytes # (Manual) Monocytes # (Manual) 1.5 H PT INR APTT Fibrinogen D-Dimer POC ABG pH ABG pH POC ABG pCO2 POC ABG pO2 ABG pO2 ABG Hemoglobin Oxyhemoglobin Sodium Potassium 7.0 H* D Chloride 90.7 L Carbon Dioxide 3 L* BUN Creatinine 1.6 H Glucose 60 L POC Glucose 48 L Lactic Acid Calcium 8.0 L Phosphorus Iron TIBC Total Bilirubin 5.00 H Direct Bilirubin AST 1815 H ALT 399 H Total Protein Albumin 3.7 L Lipase Urine WBC (Auto) Plasma/Serum Alcohol Crossmatch 03/08/19 03/08/19 03/08/19 22:43 23:00 23:10 WBC RBC Hgb Hct MCV MCH MCHC RDW Plt Count Lymph # Seg Neutrophils % Seg Neuts % (Manual) Lymphocytes % (Manual) Monocytes % (Manual) Eosinophils % (Manual) Basophils % (Manual) Nucleated RBC % Seg Neutrophils # Man Lymphocytes # (Manual) Monocytes # (Manual) PT INR APTT Fibrinogen D-Dimer POC ABG pH ABG pH POC ABG pCO2 POC ABG pO2 ABG pO2 ABG Hemoglobin Oxyhemoglobin Sodium Potassium 7.9 H* Chloride 86.4 L Carbon Dioxide 9 L* BUN Creatinine 1.7 H Glucose 314 H POC Glucose Lactic Acid 23.50 H* Calcium Phosphorus 8.60 H Iron TIBC Total Bilirubin Direct Bilirubin AST ALT Total Protein Albumin Lipase Urine WBC (Auto) Plasma/Serum Alcohol Crossmatch 03/08/19 03/09/19 03/09/19 23:50 00:00 00:31 WBC RBC Hgb Hct MCV MCH MCHC RDW Plt Count Lymph # Seg Neutrophils % Seg Neuts % (Manual) Lymphocytes % (Manual) Monocytes % (Manual) Eosinophils % (Manual) Basophils % (Manual) Nucleated RBC % Seg Neutrophils # Man Lymphocytes # (Manual) Monocytes # (Manual) PT INR APTT Fibrinogen D-Dimer POC ABG pH 7.120 L ABG pH POC ABG pCO2 30.7 L POC ABG pO2 130 H ABG pO2 ABG Hemoglobin Oxyhemoglobin Sodium Potassium 6.3 H* D Chloride 93.7 L Carbon Dioxide 11 L BUN 21 H Creatinine 1.7 H Glucose 219 H POC Glucose 206 H Lactic Acid Calcium 8.2 L Phosphorus Iron TIBC Total Bilirubin Direct Bilirubin AST ALT Total Protein Albumin Lipase Urine WBC (Auto) Plasma/Serum Alcohol Crossmatch 03/09/19 03/09/19 03/09/19 00:47 01:45 02:02 WBC RBC 1.72 L Hgb 6.3 L Hct 20.0 L D MCV 117 H MCH 37 H MCHC 31 L RDW 20.9 H Plt Count 62 L Lymph # Seg Neutrophils % Seg Neuts % (Manual) 93.0 H Lymphocytes % (Manual) 6.0 L Monocytes % (Manual) Eosinophils % (Manual) Basophils % (Manual) Nucleated RBC % 1.0 H Seg Neutrophils # Man 9.6 H Lymphocytes # (Manual) 0.6 L Monocytes # (Manual) PT INR APTT Fibrinogen D-Dimer POC ABG pH ABG pH POC ABG pCO2 31.8 L POC ABG pO2 142 H ABG pO2 ABG Hemoglobin Oxyhemoglobin Sodium Potassium Chloride Carbon Dioxide BUN Creatinine Glucose POC Glucose 182 H Lactic Acid Calcium Phosphorus Iron TIBC Total Bilirubin Direct Bilirubin AST ALT Total Protein Albumin Lipase Urine WBC (Auto) Plasma/Serum Alcohol Crossmatch 03/09/19 03/09/19 03/09/19 02:10 02:30 03:00 WBC RBC Hgb Hct MCV MCH MCHC RDW Plt Count Lymph # Seg Neutrophils % Seg Neuts % (Manual) Lymphocytes % (Manual) Monocytes % (Manual) Eosinophils % (Manual) Basophils % (Manual) Nucleated RBC % Seg Neutrophils # Man Lymphocytes # (Manual) Monocytes # (Manual) PT INR APTT Fibrinogen D-Dimer POC ABG pH ABG pH POC ABG pCO2 POC ABG pO2 ABG pO2 ABG Hemoglobin Oxyhemoglobin Sodium 150 H D Potassium Chloride Carbon Dioxide BUN Creatinine Glucose 177 H POC Glucose 178 H Lactic Acid Calcium 10.5 H D Phosphorus Iron 208 H TIBC 185 L Total Bilirubin Direct Bilirubin AST ALT Total Protein Albumin Lipase Urine WBC (Auto) Plasma/Serum Alcohol Crossmatch 03/09/19 03/09/19 03/09/19 04:16 05:46 07:47 WBC RBC 1.06 L Hgb 3.9 L* Hct 11.7 L* D MCV 111 H MCH 37 H MCHC RDW 20.0 H Plt Count 52 L Lymph # Seg Neutrophils % 79.1 H Seg Neuts % (Manual) Lymphocytes % (Manual) Monocytes % (Manual) Eosinophils % (Manual) Basophils % (Manual) Nucleated RBC % Seg Neutrophils # Man Lymphocytes # (Manual) Monocytes # (Manual) PT INR APTT Fibrinogen D-Dimer POC ABG pH ABG pH POC ABG pCO2 POC ABG pO2 ABG pO2 ABG Hemoglobin Oxyhemoglobin Sodium Potassium Chloride Carbon Dioxide BUN Creatinine Glucose POC Glucose 201 H 176 H Lactic Acid Calcium Phosphorus Iron TIBC Total Bilirubin Direct Bilirubin AST ALT Total Protein Albumin Lipase Urine WBC (Auto) Plasma/Serum Alcohol Crossmatch 03/09/19 03/09/19 03/09/19 07:48 07:48 13:50 WBC RBC 2.69 L Hgb 8.9 L D Hct 25.8 L D MCV 96 H MCH 33 H MCHC 35 H RDW 17.1 H Plt Count 49 L Lymph # Seg Neutrophils % 79.1 H Seg Neuts % (Manual) Lymphocytes % (Manual) Monocytes % (Manual) Eosinophils % (Manual) Basophils % (Manual) Nucleated RBC % Seg Neutrophils # Man Lymphocytes # (Manual) Monocytes # (Manual) PT INR APTT Fibrinogen D-Dimer POC ABG pH ABG pH POC ABG pCO2 POC ABG pO2 ABG pO2 ABG Hemoglobin Oxyhemoglobin Sodium 154 H Potassium Chloride 111.2 H Carbon Dioxide 18 L BUN 22 H Creatinine 2.1 H Glucose 131 H POC Glucose Lactic Acid 19.10 H* Calcium Phosphorus Iron TIBC Total Bilirubin Direct Bilirubin AST ALT Total Protein Albumin Lipase Urine WBC (Auto) Plasma/Serum Alcohol Crossmatch 03/09/19 03/09/19 03/09/19 13:50 14:20 16:08 WBC RBC Hgb Hct MCV MCH MCHC RDW Plt Count Lymph # Seg Neutrophils % Seg Neuts % (Manual) Lymphocytes % (Manual) Monocytes % (Manual) Eosinophils % (Manual) Basophils % (Manual) Nucleated RBC % Seg Neutrophils # Man Lymphocytes # (Manual) Monocytes # (Manual) PT 28.2 H INR 2.70 H APTT 41.8 H Fibrinogen 81 L* D-Dimer 1494.02 H POC ABG pH ABG pH POC ABG pCO2 POC ABG pO2 ABG pO2 ABG Hemoglobin Oxyhemoglobin Sodium Potassium Chloride Carbon Dioxide BUN Creatinine Glucose POC Glucose 188 H 235 H Lactic Acid Calcium Phosphorus Iron TIBC Total Bilirubin Direct Bilirubin AST ALT Total Protein Albumin Lipase Urine WBC (Auto) Plasma/Serum Alcohol Crossmatch 03/09/19 03/09/19 03/09/19 17:55 23:26 Unknown WBC RBC Hgb Hct MCV MCH MCHC RDW Plt Count Lymph # Seg Neutrophils % Seg Neuts % (Manual) Lymphocytes % (Manual) Monocytes % (Manual) Eosinophils % (Manual) Basophils % (Manual) Nucleated RBC % Seg Neutrophils # Man Lymphocytes # (Manual) Monocytes # (Manual) PT INR APTT Fibrinogen D-Dimer POC ABG pH ABG pH POC ABG pCO2 POC ABG pO2 ABG pO2 ABG Hemoglobin Oxyhemoglobin Sodium Potassium Chloride Carbon Dioxide BUN Creatinine Glucose POC Glucose 233 H 236 H Lactic Acid Calcium Phosphorus Iron TIBC Total Bilirubin Direct Bilirubin AST ALT Total Protein Albumin Lipase 385 H Urine WBC (Auto) Plasma/Serum Alcohol Crossmatch 03/10/19 03/10/19 03/10/19 00:04 03:36 03:36 WBC RBC 2.11 L Hgb 7.8 L 7.1 L Hct 22.0 L 19.7 L* MCV MCH 34 H MCHC 36 H RDW 17.9 H Plt Count 45 L Lymph # Seg Neutrophils % 73.6 H Seg Neuts % (Manual) 90.0 H Lymphocytes % (Manual) 3.0 L Monocytes % (Manual) Eosinophils % (Manual) Basophils % (Manual) Nucleated RBC % 3.0 H Seg Neutrophils # Man Lymphocytes # (Manual) 0.2 L Monocytes # (Manual) PT INR APTT Fibrinogen D-Dimer POC ABG pH ABG pH POC ABG pCO2 POC ABG pO2 ABG pO2 ABG Hemoglobin Oxyhemoglobin Sodium 150 H Potassium 3.3 L D Chloride 113.2 H Carbon Dioxide BUN 30 H Creatinine 3.4 H D Glucose 196 H POC Glucose Lactic Acid Calcium 8.2 L Phosphorus Iron TIBC Total Bilirubin Direct Bilirubin AST ALT Total Protein Albumin Lipase Urine WBC (Auto) Plasma/Serum Alcohol Crossmatch 03/10/19 03/10/19 03/10/19 03:36 03:53 03:56 WBC RBC Hgb Hct MCV MCH MCHC RDW Plt Count Lymph # Seg Neutrophils % Seg Neuts % (Manual) Lymphocytes % (Manual) Monocytes % (Manual) Eosinophils % (Manual) Basophils % (Manual) Nucleated RBC % Seg Neutrophils # Man Lymphocytes # (Manual) Monocytes # (Manual) PT INR APTT Fibrinogen D-Dimer POC ABG pH ABG pH POC ABG pCO2 POC ABG pO2 ABG pO2 94.7 H ABG Hemoglobin 6.5 L Oxyhemoglobin Sodium Potassium Chloride Carbon Dioxide BUN Creatinine Glucose POC Glucose 212 H Lactic Acid Calcium Phosphorus Iron TIBC Total Bilirubin 4.90 H Direct Bilirubin 3.9 H AST 6235 H ALT 924 H Total Protein 4.2 L D Albumin 2.5 L Lipase Urine WBC (Auto) Plasma/Serum Alcohol Crossmatch 03/10/19 03/10/19 03/10/19 05:58 08:12 09:26 WBC RBC Hgb Hct MCV MCH MCHC RDW Plt Count Lymph # Seg Neutrophils % Seg Neuts % (Manual) Lymphocytes % (Manual) Monocytes % (Manual) Eosinophils % (Manual) Basophils % (Manual) Nucleated RBC % Seg Neutrophils # Man Lymphocytes # (Manual) Monocytes # (Manual) PT 29.3 H INR 2.83 H APTT Fibrinogen D-Dimer POC ABG pH ABG pH POC ABG pCO2 POC ABG pO2 ABG pO2 ABG Hemoglobin Oxyhemoglobin Sodium Potassium Chloride Carbon Dioxide BUN Creatinine Glucose POC Glucose 171 H 197 H Lactic Acid Calcium Phosphorus Iron TIBC Total Bilirubin Direct Bilirubin AST ALT Total Protein Albumin Lipase Urine WBC (Auto) Plasma/Serum Alcohol Crossmatch 03/10/19 03/10/19 03/10/19 11:40 14:04 16:18 WBC RBC Hgb 6.7 L Hct 18.8 L* MCV MCH MCHC RDW Plt Count Lymph # Seg Neutrophils % Seg Neuts % (Manual) Lymphocytes % (Manual) Monocytes % (Manual) Eosinophils % (Manual) Basophils % (Manual) Nucleated RBC % Seg Neutrophils # Man Lymphocytes # (Manual) Monocytes # (Manual) PT INR APTT Fibrinogen D-Dimer POC ABG pH ABG pH POC ABG pCO2 POC ABG pO2 ABG pO2 ABG Hemoglobin Oxyhemoglobin Sodium Potassium Chloride Carbon Dioxide BUN Creatinine Glucose POC Glucose 178 H 192 H Lactic Acid Calcium Phosphorus Iron TIBC Total Bilirubin Direct Bilirubin AST ALT Total Protein Albumin Lipase Urine WBC (Auto) Plasma/Serum Alcohol Crossmatch 03/10/19 03/10/19 03/11/19 21:42 22:00 00:05 WBC RBC Hgb 7.4 L Hct 21.1 L MCV MCH MCHC RDW Plt Count Lymph # Seg Neutrophils % Seg Neuts % (Manual) Lymphocytes % (Manual) Monocytes % (Manual) Eosinophils % (Manual) Basophils % (Manual) Nucleated RBC % Seg Neutrophils # Man Lymphocytes # (Manual) Monocytes # (Manual) PT INR APTT Fibrinogen D-Dimer POC ABG pH ABG pH POC ABG pCO2 POC ABG pO2 ABG pO2 ABG Hemoglobin Oxyhemoglobin Sodium Potassium Chloride Carbon Dioxide BUN Creatinine Glucose POC Glucose 174 H 136 H Lactic Acid Calcium Phosphorus Iron TIBC Total Bilirubin Direct Bilirubin AST ALT Total Protein Albumin Lipase Urine WBC (Auto) Plasma/Serum Alcohol Crossmatch 03/11/19 03/11/19 03/11/19 04:04 04:15 04:15 WBC RBC 2.28 L Hgb 7.4 L Hct 20.8 L MCV MCH 33 H MCHC 36 H RDW 18.4 H Plt Count 38 L Lymph # 1.1 L Seg Neutrophils % 72.7 H Seg Neuts % (Manual) Lymphocytes % (Manual) Monocytes % (Manual) Eosinophils % (Manual) Basophils % (Manual) Nucleated RBC % Seg Neutrophils # Man Lymphocytes # (Manual) Monocytes # (Manual) PT INR APTT Fibrinogen D-Dimer POC ABG pH ABG pH POC ABG pCO2 POC ABG pO2 ABG pO2 ABG Hemoglobin Oxyhemoglobin Sodium 147 H Potassium 3.2 L Chloride 109.2 H Carbon Dioxide BUN 34 H Creatinine 5.0 H Glucose 132 H POC Glucose 133 H Lactic Acid Calcium 7.5 L Phosphorus Iron TIBC Total Bilirubin 7.40 H Direct Bilirubin AST 3748 H ALT 864 H Total Protein 4.7 L Albumin 2.5 L Lipase Urine WBC (Auto) Plasma/Serum Alcohol Crossmatch 03/11/19 03/11/19 03/11/19 04:25 08:28 12:03 WBC RBC Hgb Hct MCV MCH MCHC RDW Plt Count Lymph # Seg Neutrophils % Seg Neuts % (Manual) Lymphocytes % (Manual) Monocytes % (Manual) Eosinophils % (Manual) Basophils % (Manual) Nucleated RBC % Seg Neutrophils # Man Lymphocytes # (Manual) Monocytes # (Manual) PT INR APTT Fibrinogen D-Dimer POC ABG pH ABG pH 7.467 H POC ABG pCO2 POC ABG pO2 ABG pO2 69.6 L ABG Hemoglobin 7.4 L Oxyhemoglobin 94.3 L Sodium Potassium Chloride Carbon Dioxide BUN Creatinine Glucose POC Glucose 128 H 122 H Lactic Acid Calcium Phosphorus Iron TIBC Total Bilirubin Direct Bilirubin AST ALT Total Protein Albumin Lipase Urine WBC (Auto) Plasma/Serum Alcohol Crossmatch 03/11/19 03/11/19 03/11/19 17:01 20:09 23:58 WBC RBC Hgb Hct MCV MCH MCHC RDW Plt Count Lymph # Seg Neutrophils % Seg Neuts % (Manual) Lymphocytes % (Manual) Monocytes % (Manual) Eosinophils % (Manual) Basophils % (Manual) Nucleated RBC % Seg Neutrophils # Man Lymphocytes # (Manual) Monocytes # (Manual) PT INR APTT Fibrinogen D-Dimer POC ABG pH ABG pH POC ABG pCO2 POC ABG pO2 ABG pO2 ABG Hemoglobin Oxyhemoglobin Sodium Potassium Chloride Carbon Dioxide BUN Creatinine Glucose POC Glucose 135 H 155 H 119 H Lactic Acid Calcium Phosphorus Iron TIBC Total Bilirubin Direct Bilirubin AST ALT Total Protein Albumin Lipase Urine WBC (Auto) Plasma/Serum Alcohol Crossmatch 03/12/19 03/12/19 03/12/19 03:00 04:10 05:24 WBC RBC Hgb Hct MCV MCH MCHC RDW Plt Count Lymph # Seg Neutrophils % Seg Neuts % (Manual) Lymphocytes % (Manual) Monocytes % (Manual) Eosinophils % (Manual) Basophils % (Manual) Nucleated RBC % Seg Neutrophils # Man Lymphocytes # (Manual) Monocytes # (Manual) PT INR APTT Fibrinogen D-Dimer POC ABG pH ABG pH 7.467 H POC ABG pCO2 POC ABG pO2 ABG pO2 77.8 L ABG Hemoglobin 7.3 L Oxyhemoglobin 94.2 L Sodium Potassium Chloride Carbon Dioxide BUN Creatinine Glucose POC Glucose 137 H 137 H Lactic Acid Calcium Phosphorus Iron TIBC Total Bilirubin Direct Bilirubin AST ALT Total Protein Albumin Lipase Urine WBC (Auto) Plasma/Serum Alcohol Crossmatch 03/12/19 03/12/19 03/12/19 07:40 07:40 08:40 WBC RBC 2.24 L Hgb 7.4 L Hct 20.9 L MCV MCH 33 H MCHC 35 H RDW 19.0 H Plt Count 45 L Lymph # Seg Neutrophils % Seg Neuts % (Manual) 76.0 H Lymphocytes % (Manual) Monocytes % (Manual) Eosinophils % (Manual) Basophils % (Manual) Nucleated RBC % 11.0 H Seg Neutrophils # Man Lymphocytes # (Manual) 1.1 L Monocytes # (Manual) PT 22.4 H INR 2.02 H APTT 45.4 H Fibrinogen D-Dimer POC ABG pH ABG pH POC ABG pCO2 POC ABG pO2 ABG pO2 ABG Hemoglobin Oxyhemoglobin Sodium Potassium Chloride Carbon Dioxide BUN Creatinine Glucose POC Glucose 132 H Lactic Acid Calcium Phosphorus Iron TIBC Total Bilirubin Direct Bilirubin AST ALT Total Protein Albumin Lipase Urine WBC (Auto) Plasma/Serum Alcohol Crossmatch 03/12/19 03/12/19 03/12/19 12:00 16:51 Unknown WBC RBC Hgb Hct MCV MCH MCHC RDW Plt Count Lymph # Seg Neutrophils % Seg Neuts % (Manual) Lymphocytes % (Manual) Monocytes % (Manual) Eosinophils % (Manual) Basophils % (Manual) Nucleated RBC % Seg Neutrophils # Man Lymphocytes # (Manual) Monocytes # (Manual) PT INR APTT Fibrinogen D-Dimer POC ABG pH ABG pH POC ABG pCO2 POC ABG pO2 ABG pO2 ABG Hemoglobin Oxyhemoglobin Sodium Potassium Chloride Carbon Dioxide BUN 26 H Creatinine 4.1 H Glucose 128 H POC Glucose 160 H 122 H Lactic Acid Calcium 7.0 L Phosphorus Iron TIBC Total Bilirubin Direct Bilirubin AST ALT Total Protein Albumin Lipase Urine WBC (Auto) Plasma/Serum Alcohol Crossmatch 03/12/19 03/13/19 03/13/19 Unknown 03:45 04:11 WBC 4.2 L RBC 2.09 L Hgb 6.8 L Hct 19.6 L* MCV MCH 33 H MCHC 35 H RDW 20.2 H Plt Count 44 L Lymph # Seg Neutrophils % Seg Neuts % (Manual) Lymphocytes % (Manual) 7.0 L Monocytes % (Manual) 32.0 H Eosinophils % (Manual) 5.0 H Basophils % (Manual) 2.0 H Nucleated RBC % 12.0 H Seg Neutrophils # Man 0.0 L Lymphocytes # (Manual) 0.0 L Monocytes # (Manual) PT INR APTT Fibrinogen D-Dimer POC ABG pH ABG pH POC ABG pCO2 POC ABG pO2 ABG pO2 62.5 L ABG Hemoglobin 7.6 L Oxyhemoglobin 92.3 L Sodium Potassium Chloride Carbon Dioxide BUN Creatinine Glucose POC Glucose Lactic Acid Calcium Phosphorus Iron TIBC Total Bilirubin 8.90 H Direct Bilirubin 7.4 H AST 2116 H ALT 767 H Total Protein 5.1 L Albumin 2.3 L Lipase Urine WBC (Auto) Plasma/Serum Alcohol Crossmatch 03/13/19 03/13/19 03/13/19 04:11 08:04 12:04 WBC RBC Hgb 7.0 L Hct 20.0 L MCV MCH MCHC RDW Plt Count Lymph # Seg Neutrophils % Seg Neuts % (Manual) Lymphocytes % (Manual) Monocytes % (Manual) Eosinophils % (Manual) Basophils % (Manual) Nucleated RBC % Seg Neutrophils # Man Lymphocytes # (Manual) Monocytes # (Manual) PT INR APTT Fibrinogen D-Dimer POC ABG pH ABG pH POC ABG pCO2 POC ABG pO2 ABG pO2 ABG Hemoglobin Oxyhemoglobin Sodium Potassium 3.0 L Chloride Carbon Dioxide BUN 27 H Creatinine 3.7 H Glucose POC Glucose 114 H Lactic Acid Calcium 6.3 L Phosphorus Iron TIBC Total Bilirubin Direct Bilirubin AST ALT Total Protein Albumin Lipase Urine WBC (Auto) Plasma/Serum Alcohol Crossmatch Chest x-ray: image reviewed (stable; no focal infiltyrate; mild interstitial edema) Allied health notes reviewed: nursing
[2019-03-13] MEDS: SOLU-Medrol IV SCH (15:42)
--- NOTE | 2019-03-13 16:04 | Progress Note ---
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 Variceal banding ligation performed. * Hyperkalemia - resolved * Acute respirtory failure on mechanical ventilation * Transaminitis * Alcohol abuse * Hypernatremia Plan: * Will hold HD today given stable lytes and good urine output; could consider trial of IV diuretics if needed for volume * Will continue to reassess labs and volume status daily and plan for renal replacement therapy as needed * Strict I/O * Transfuse pRBC per GI/primary team * GI recommendations reviewed * Vent management per CCM * Pressors prn to maintain MAP>65 * Abx per primary team * Dose medications for renal function * Avoid potential nephrotoxins * Remains high mortality risk given co-morbidities Thank you for this consult; we will continue to follow and provide recommendations from renal standpoint Subjective Date of service: 03/13/19 Principal diagnosis: Ac. GI bleed; hemorrhagic shock; Ac. hypoxemic resp failure; ADRIANNE venkateshley ATN Interval history: no acute events overnight. Spoke with patient's mother at bedside and spent much time discussing renal prognosis. Objective - Exam Narrative Exam: General appearance: intubated EENT: ATNC, other (ETT in place) Respiratory: Present: Other (coarse breath sounds) Cardiology: tachycardia Gastrointestinal: hypoactive bowel sounds, distended Integumentary: no rash Musculoskeletal: other (+trace edema) - Vital Signs Vital signs: Vital Signs - 12hr 03/13/19 03/13/19 03/13/19 04:15 04:29 04:30 Temperature Pulse Rate 110 H 109 H 110 H Respiratory 17 16 Rate Blood Pressure 92/50 97/45 97/45 O2 Sat by Pulse 98 96 96 Oximetry 03/13/19 03/13/19 03/13/19 04:45 05:00 05:15 Temperature Pulse Rate 108 H 107 H 107 H Respiratory 15 17 17 Rate Blood Pressure 104/46 97/45 95/43 O2 Sat by Pulse 96 96 96 Oximetry 03/13/19 03/13/19 03/13/19 05:30 05:45 06:00 Temperature Pulse Rate 108 H 109 H 132 H Respiratory 17 18 16 Rate Blood Pressure 102/44 111/50 111/50 O2 Sat by Pulse 96 96 93 Oximetry 03/13/19 03/13/19 03/13/19 06:16 06:30 06:45 Temperature Pulse Rate 147 H 117 H 110 H Respiratory 14 21 17 Rate Blood Pressure 127/68 127/78 119/67 O2 Sat by Pulse 84 98 Oximetry 03/13/19 03/13/19 03/13/19 07:00 07:15 07:30 Temperature Pulse Rate 106 H 106 H 109 H Respiratory 15 17 18 Rate Blood Pressure 111/61 107/51 116/59 O2 Sat by Pulse 99 98 97 Oximetry 03/13/19 03/13/19 03/13/19 07:45 08:00 12:00 Temperature 99.9 F H 98.6 F Pulse Rate 109 H 110 H Respiratory 18 17 Rate Blood Pressure 110/62 104/53 O2 Sat by Pulse 97 97 Oximetry - Lab 03/13/19 08:04 03/13/19 04:11 Most recent lab results ABG pH 7.430 pH Units (7.350-7.450) 03/13/19 03:45 ABG pCO2 39.1 mm Hg 03/13/19 03:45 ABG pO2 62.5 mm Hg (80.0-90.0) L 03/13/19 03:45 ABG HCO3 25.4 mmol/L (20.0-26.0) 03/13/19 03:45 ABG O2 Saturation 95.0 % (95.0-99.0) 03/13/19 03:45 Calcium 6.3 mg/dL (8.4-10.2) L 03/13/19 04:11 Phosphorus 8.60 mg/dL (2.5-4.5) H 03/08/19 22:43 Magnesium 2.30 mg/dL (1.7-2.3) 03/08/19 22:43 Medications & Allergies - Medications Allergies/Adverse Reactions: Allergies No Known Allergies Allergy (Verified 03/08/19 12:31) Home Medications: Home Medications Medication Instructions Recorded Confirmed Last Taken Type No Known Home Medications [No 03/10/19 03/10/19 Unknown History Reported Home Medications] Active Medications: Generic Name Dose Route Start Last Admin Trade Name Freq PRN Reason Stop Dose Admin Acetaminophen 650 mg 03/09/19 13:00 03/12/19 06:50 Tylenol SC 650 mg Q4H PRN Administration Pain, Mild (1-3) Albuterol 2.5 mg 03/08/19 14:56 Proventil IH Q3HRT PRN Shortness Of Breath Dextrose 50 ml 03/09/19 01:34 D50w (25gm) Syringe IV PRN PRN Hypoglycemia Fentanyl 50 mcg 03/11/19 17:41 Sublimaze IV Q10MIN PRN ANALGESIA Hydrophilic Ointment 1 applic 03/08/19 22:51 Vaseline Lip Therapy TP Q2HR PRN Dry Lips Norepinephrine 4 mg in 250 mls @ 7.5 mls/hr 03/09/19 04:00 03/09/19 16:15 Levophed Drip 4 Mg/Ns 250 Ml IV 0 mcg/min TITR CHARLIE 0 mls/hr Titration Protocol 2 MCG/MIN Phenylephrine HCl 100 mg/ 100 mls @ 3 mls/hr 03/09/19 08:45 03/12/19 17:00 Sodium Chloride IV 0 mcg/min TITR CHARLIE 0 mls/hr Titration Protocol 50 MCG/MIN Propofol 1,000 mg in 100 mls @ 2.61 mls/hr 03/11/19 02:00 03/12/19 10:15 Diprivan 10 Mg/Ml IV 0 mcg/kg/min TITR CHARLIE 0 mls/hr Titration Protocol 5 MCG/KG/MIN Sodium Chloride 100 mls @ 999 mls/hr 03/11/19 15:50 Nacl 0.9% IV JULIO CESAR PRN Hypotension Fentanyl Citrate 2,000 mcg in 100 mls @ 4.35 mls/hr 03/11/19 18:00 03/12/19 15:00 Fentanyl Drip Premix IV 0 mcg/kg/hr TITR CHARLIE 0 mls/hr Titration Protocol 1 MCG/KG/HR Dextrose/Sodium Chloride 1,000 mls @ 100 mls/hr 03/12/19 14:00 03/13/19 10:17 D5/0.45ns IV 100 mls/hr DIRECT CHARLIE Administration Sodium Chloride 100 mls @ 999 mls/hr 03/13/19 13:20 Nacl 0.9% IV JULIO CESAR PRN Hypotension Piperacillin Sod/Tazobactam Sod 2.25 gm in 50 mls @ 100 mls/hr 03/13/19 16:00 Zosyn/Ns 2.25 Gm/50ml IV Q8HR CHARLIE Lorazepam 2 mg 03/08/19 14:57 03/10/19 22:43 Ativan IV 2 mg Q1HR PRN Administration CIWA-Ar 8-15 Methylprednisolone Sodium Succinate 40 mg 03/13/19 15:00 03/13/19 15:42 Solu-Medrol IV 40 mg Q24H CHARLIE Administration Metoclopramide HCl 5 mg 03/11/19 09:00 Reglan IV Q6H PRN Nausea And Vomiting Metoprolol Tartrate 5 mg 03/11/19 17:41 03/11/19 20:04 Lopressor IV 5 mg Q6HR PRN Administration Tachyarrhythmias Multi-Ingred Cream/Lotion/Oil/Oint 1 applic 03/08/19 22:51 Artificial Tears Ophth Oint OU Q4HR PRN Dry Eye(s) Pantoprazole Sodium 40 mg 03/12/19 22:00 03/13/19 10:16 Protonix IV 40 mg BID CHARLIE Administration Phytonadione 10 mg 03/12/19 14:00 03/13/19 10:10 Vitamin K (Adult Only) SUB-Q 03/14/19 10:01 10 mg DAILY CHARLIE Administration Sodium Chloride 10 ml 03/08/19 22:00 03/13/19 10:22 Sodium Chloride Flush Syringe 10 Ml IV 10 ml BID CHARLIE Administration Sodium Chloride 10 ml 03/08/19 14:56 Sodium Chloride Flush Syringe 10 Ml IV PRN PRN LINE FLUSH
--- NOTE | 2019-03-13 18:10 | Hem/Onc Progress Note ---
Assessment and Plan 1. h/o Anemia. Hemoglobin was 3 secondary to gastrointestinal bleed. 2. h/o Thrombocytopenia, likely secondary to consumption and liver disease. 3. h/o Low fibrinogen and elevated PT, PTT, secondary to DIC/consumption. 4. h/o Abnormal liver function test. 5. The patient's blood pressure was low and was on pressors. 6. s/p Intubation. 7. History of cirrhosis. 8. History of alcohol usage and smoking. 9. Esophagogastroduodenoscopy showed varices, status post intervention. 10. The patient got octreotide infusion. 11. s/p cryoprecipitate as fibrinogen level is low. His LFTs are abnormal. Vitamin k may not benefit, we have option of FFPs. There is a mention of chest x-ray for monitoring TRALI. follow labs supportive care for now - Patient Problems (1) Thrombocytopenia Current Visit: Yes Status: Acute Subjective Date of service: 03/13/19 Principal diagnosis: low plt Interval history: on vent Objective - Exam Narrative Exam: Pain - pt on vent General appearance intubated Performance status complete dependence Eyes - icterus ENT - no bleeding - INTUBATED LNs cervical not palpable Neck - no LN Respiratory Normal Breath sounds - decreased air entry CVS S1 S2 + Extremities normal temperature General GI Rectal deferred male - deferred Skin warm Musculoskeletal - moves limbs Neurologically awake - Constitutional Vitals: Last Vital Signs Temp 99.2 F 03/13/19 16:00 Pulse 98 H 03/13/19 16:00 Resp 16 03/13/19 16:00 BP 108/66 03/13/19 16:00 Pulse Ox 99 03/13/19 16:00 - Labs Lab Results: Laboratory Results - last 24 hr 03/12/19 03/13/19 03/13/19 21:46 00:07 03:45 WBC RBC Hgb Hct MCV MCH MCHC RDW Plt Count [place] % (Auto) Add Manual Diff Total Counted Seg Neuts % (Manual) Band Neutrophils % Lymphocytes % (Manual) Reactive Lymphs % (Man) Monocytes % (Manual) Eosinophils % (Manual) Basophils % (Manual) Metamyelocytes % Myelocytes % Promyelocytes % Blast Cells % Nucleated RBC % Seg Neutrophils # Man Band Neutrophils # Lymphocytes # (Manual) Abs React Lymphs (Man) Monocytes # (Manual) Eosinophils # (Manual) Basophils # (Manual) Metamyelocytes # Myelocytes # Promyelocytes # Blast Cells # WBC Morphology Hypersegmented Neuts Hyposegmented Neuts Hypogranular Neuts Smudge Cells Toxic Granulation Toxic Vacuolation Dohle Bodies Pelger-Huet Anomaly Meng Rods Platelet Estimate Clumped Platelets Plt Clumps, EDTA Large Platelets Giant Platelets Platelet Satelliting Plt Morphology Comment RBC Morphology Dimorphic RBCs Polychromasia Hypochromasia Poikilocytosis Anisocytosis Microcytosis Macrocytosis Spherocytes Pappenheimer Bodies Sickle Cells Target Cells Tear Drop Cells Ovalocytes Stomatocytes Helmet Cells [place] Bodies [place] Rings Nancie Cells Bite Cells Crenated Cell Elliptocytes Acanthocytes (Spur) Rouleaux Hemoglobin C Crystals Schistocytes Malaria parasites Santy Bodies Hem Pathologist Commnt ABG pH 7.430 ABG pCO2 39.1 ABG pO2 62.5 L ABG HCO3 25.4 ABG O2 Saturation 95.0 ABG O2 Content 10.0 ABG Base Excess 1.0 ABG Hemoglobin 7.6 L ABG Carboxyhemoglobin 2.3 ABG Methemoglobin 0.6 Oxyhemoglobin 92.3 L FiO2 30 Sodium Potassium Chloride Carbon Dioxide Anion Gap BUN Creatinine Estimated GFR BUN/Creatinine Ratio Glucose POC Glucose 103 95 Calcium 03/13/19 03/13/19 03/13/19 04:07 04:11 04:11 WBC 4.2 L RBC 2.09 L Hgb 6.8 L Hct 19.6 L* MCV 94 MCH 33 H MCHC 35 H RDW 20.2 H Plt Count 44 L [place] % (Auto) Stonemason Apprentice Add Manual Diff Complete Total Counted 100 Seg Neuts % (Manual) 53.0 Band Neutrophils % 1.0 Lymphocytes % (Manual) 7.0 L Reactive Lymphs % (Man) 0 Monocytes % (Manual) 32.0 H Eosinophils % (Manual) 5.0 H Basophils % (Manual) 2.0 H Metamyelocytes % 0 Myelocytes % 0 Promyelocytes % 0 Blast Cells % 0 Nucleated RBC % 12.0 H Seg Neutrophils # Man 0.0 L Band Neutrophils # 0.0 Lymphocytes # (Manual) 0.0 L Abs React Lymphs (Man) 0.0 Monocytes # (Manual) 0.0 Eosinophils # (Manual) 0.0 Basophils # (Manual) 0.0 Metamyelocytes # 0.0 Myelocytes # 0.0 Promyelocytes # 0.0 Blast Cells # 0.0 WBC Morphology Not Reportable Hypersegmented Neuts Not Reportable Hyposegmented Neuts Not Reportable Hypogranular Neuts Not Reportable Smudge Cells Not Reportable Toxic Granulation Not Reportable Toxic Vacuolation Not Reportable Dohle Bodies Not Reportable Pelger-Huet Anomaly Not Reportable Meng Rods Not Reportable Platelet Estimate Consistent w auto Clumped Platelets Not Reportable Plt Clumps, EDTA Not Reportable Large Platelets Not Reportable Giant Platelets Not Reportable Platelet Satelliting Not Reportable Plt Morphology Comment Not Reportable RBC Morphology Not Reportable Dimorphic RBCs Not Reportable Polychromasia Not Reportable Hypochromasia Not Reportable Poikilocytosis Not Reportable Anisocytosis 1+ Microcytosis Not Reportable Macrocytosis Not Reportable Spherocytes Not Reportable Pappenheimer Bodies Not Reportable Sickle Cells Not Reportable Target Cells Not Reportable Tear Drop Cells Not Reportable Ovalocytes Not Reportable Stomatocytes 1+ Helmet Cells Not Reportable [place] Bodies Not Reportable [place] Rings Not Reportable Nancie Cells Not Reportable Bite Cells Not Reportable Crenated Cell Not Reportable Elliptocytes Not Reportable Acanthocytes (Spur) Not Reportable Rouleaux Not Reportable Hemoglobin C Crystals Not Reportable Schistocytes Not Reportable Malaria parasites Not Reportable Santy Bodies Not Reportable Hem Pathologist Commnt No ABG pH ABG pCO2 ABG pO2 ABG HCO3 ABG O2 Saturation ABG O2 Content ABG Base Excess ABG Hemoglobin ABG Carboxyhemoglobin ABG Methemoglobin Oxyhemoglobin FiO2 Sodium 142 Potassium 3.0 L Chloride 105.2 Carbon Dioxide 24 Anion Gap 16 BUN 27 H Creatinine 3.7 H Estimated GFR 19 BUN/Creatinine Ratio 7 Glucose 99 POC Glucose 97 Calcium 6.3 L 03/13/19 03/13/19 03/13/19 08:04 12:04 17:05 WBC RBC Hgb 7.0 L Hct 20.0 L MCV MCH MCHC RDW Plt Count [place] % (Auto) Add Manual Diff Total Counted Seg Neuts % (Manual) Band Neutrophils % Lymphocytes % (Manual) Reactive Lymphs % (Man) Monocytes % (Manual) Eosinophils % (Manual) Basophils % (Manual) Metamyelocytes % Myelocytes % Promyelocytes % Blast Cells % Nucleated RBC % Seg Neutrophils # Man Band Neutrophils # Lymphocytes # (Manual) Abs React Lymphs (Man) Monocytes # (Manual) Eosinophils # (Manual) Basophils # (Manual) Metamyelocytes # Myelocytes # Promyelocytes # Blast Cells # WBC Morphology Hypersegmented Neuts Hyposegmented Neuts Hypogranular Neuts Smudge Cells Toxic Granulation Toxic Vacuolation Dohle Bodies Pelger-Huet Anomaly Meng Rods Platelet Estimate Clumped Platelets Plt Clumps, EDTA Large Platelets Giant Platelets Platelet Satelliting Plt Morphology Comment RBC Morphology Dimorphic RBCs Polychromasia Hypochromasia Poikilocytosis Anisocytosis Microcytosis Macrocytosis Spherocytes Pappenheimer Bodies Sickle Cells Target Cells Tear Drop Cells Ovalocytes Stomatocytes Helmet Cells [place] Bodies [place] Rings Maxwell Cells Bite Cells Crenated Cell Elliptocytes Acanthocytes (Spur) Rouleaux Hemoglobin C Crystals Schistocytes Malaria parasites Santy Bodies Hem Pathologist Commnt ABG pH ABG pCO2 ABG pO2 ABG HCO3 ABG O2 Saturation ABG O2 Content ABG Base Excess ABG Hemoglobin ABG Carboxyhemoglobin ABG Methemoglobin Oxyhemoglobin FiO2 Sodium Potassium Chloride Carbon Dioxide Anion Gap BUN Creatinine Estimated GFR BUN/Creatinine Ratio Glucose POC Glucose 114 H 111 H Calcium Medications & Allergies - Medications Allergies/Adverse Reactions: Allergies No Known Allergies Allergy (Verified 03/08/19 12:31) Home Medications: Home Medications Medication Instructions Recorded Confirmed Last Taken Type No Known Home Medications [No 03/10/19 03/10/19 Unknown History Reported Home Medications] Active Medications: Generic Name Dose Route Start Last Admin Trade Name Garciaq PRN Reason Stop Dose Admin Acetaminophen 650 mg 03/09/19 13:00 03/12/19 06:50 Tylenol HI 650 mg Q4H PRN Administration Pain, Mild (1-3) Albuterol 2.5 mg 03/08/19 14:56 Proventil IH Q3HRT PRN Shortness Of Breath Dextrose 50 ml 03/09/19 01:34 D50w (25gm) Syringe IV PRN PRN Hypoglycemia Fentanyl 50 mcg 03/11/19 17:41 Sublimaze IV Q10MIN PRN ANALGESIA Hydrophilic Ointment 1 applic 03/08/19 22:51 Vaseline Lip Therapy TP Q2HR PRN Dry Lips Norepinephrine 4 mg in 250 mls @ 7.5 mls/hr 03/09/19 04:00 03/09/19 16:15 Levophed Drip 4 Mg/Ns 250 Ml IV 0 mcg/min TITR CHARLIE 0 mls/hr Titration Protocol 2 MCG/MIN Phenylephrine HCl 100 mg/ 100 mls @ 3 mls/hr 03/09/19 08:45 03/12/19 17:00 Sodium Chloride IV 0 mcg/min TITR CHARLIE 0 mls/hr Titration Protocol 50 MCG/MIN Propofol 1,000 mg in 100 mls @ 2.61 mls/hr 03/11/19 02:00 03/12/19 10:15 Diprivan 10 Mg/Ml IV 0 mcg/kg/min TITR CHARLIE 0 mls/hr Titration Protocol 5 MCG/KG/MIN Sodium Chloride 100 mls @ 999 mls/hr 03/11/19 15:50 Nacl 0.9% IV JULIO CESAR PRN Hypotension Fentanyl Citrate 2,000 mcg in 100 mls @ 4.35 mls/hr 03/11/19 18:00 03/12/19 15:00 Fentanyl Drip Premix IV 0 mcg/kg/hr TITR CHARLIE 0 mls/hr Titration Protocol 1 MCG/KG/HR Dextrose/Sodium Chloride 1,000 mls @ 100 mls/hr 03/12/19 14:00 03/13/19 10:17 D5/0.45ns IV 100 mls/hr DIRECT CHARLIE Administration Sodium Chloride 100 mls @ 999 mls/hr 03/13/19 13:20 Nacl 0.9% IV JULIO CESAR PRN Hypotension Piperacillin Sod/Tazobactam Sod 2.25 gm in 50 mls @ 100 mls/hr 03/13/19 16:00 03/13/19 16:20 Zosyn/Ns 2.25 Gm/50ml IV 100 mls/hr Q8HR CHARLIE Administration Lorazepam 2 mg 03/08/19 14:57 03/10/19 22:43 Ativan IV 2 mg Q1HR PRN Administration CIWA-Ar 8-15 Methylprednisolone Sodium Succinate 40 mg 03/13/19 15:00 03/13/19 15:42 Solu-Medrol IV 40 mg Q24H CHARLIE Administration Metoclopramide HCl 5 mg 03/11/19 09:00 Reglan IV Q6H PRN Nausea And Vomiting Metoprolol Tartrate 5 mg 03/11/19 17:41 03/11/19 20:04 Lopressor IV 5 mg Q6HR PRN Administration Tachyarrhythmias Multi-Ingred Cream/Lotion/Oil/Oint 1 applic 03/08/19 22:51 Artificial Tears Ophth Oint OU Q4HR PRN Dry Eye(s) Pantoprazole Sodium 40 mg 03/12/19 22:00 03/13/19 10:16 Protonix IV 40 mg BID CHARLIE Administration Phytonadione 10 mg 03/12/19 14:00 03/13/19 10:10 Vitamin K (Adult Only) SUB-Q 03/14/19 10:01 10 mg DAILY CHARLIE Administration Sodium Chloride 10 ml 03/08/19 22:00 03/13/19 10:22 Sodium Chloride Flush Syringe 10 Ml IV 10 ml BID CHARLIE Administration Sodium Chloride 10 ml 03/08/19 14:56 Sodium Chloride Flush Syringe 10 Ml IV PRN PRN LINE FLUSH
--- NOTE | 2019-03-14 03:57 | XRay Report ---
CHEST 1 VIEW [id number] INDICATION / CLINICAL INFORMATION: follow up respiratory failure. COMPARISON: 03/13/2019 FINDINGS: SUPPORT DEVICES: Stable HEART / MEDIASTINUM: Stable LUNGS / PLEURA: Mild congestion continues. Small bilateral pleural effusions are again seen. Mild by basilar infiltrate and atelectasis continue. No pneumothorax. ADDITIONAL FINDINGS: No significant additional findings. IMPRESSION: No significant changes Signer Name: Ta Waterman MD Signed: 03/14/2019 3:52 AM Workstation Name: [facility]
[2019-03-14 05:39] LABS: ABG Base Excess -0.3 mmol/L (-2.0-3.0); ABG HCO3 24.9 mmol/L (20.0-26.0); ABG Methemoglobin 0.5 % (0.0-1.5); ABG Oxygen Saturation 97.6 % (95.0-99.0); ABG PH 7.38 pH Units (7.350-7.450); ABG PO2 102.3 mm Hg (80.0-90.0)
[2019-03-14 06:08] LABS: Hemoglobin 7.3 gm/dl (11.8-15.2); Mean Corpuscular HGB Conc 35 % (32-34); Mean Corpuscular Volume 96 fl (84-94)
[2019-03-14 06:20] LABS: Platelet Count 65 K/mm3 (140-440); Red Cell Distribution Width 20.1 % (13.2-15.2)
[2019-03-14] MEDS: ZOSYN/NS 2.25 GM/50ML 2.25 GM/50 ML BAG IV SCH ×2 (06:38→13:24)
[2019-03-14] MEDS: D5/0.45NS 1,000 ML IV SCH (06:38)
[2019-03-14 06:50] LABS: Albumin 2.2 g/dL (3.9-5); Calcium 6.5 mg/dL (8.4-10.2)
[2019-03-14] MEDS: SODIUM CHLORIDE FLUSH SYRINGE 10 ML IV SCH ×2 (07:22→09:33)
[2019-03-14 09:13] LABS: Band Neutrophils # (Manual) 0.3 K/mm3; Basophils % (Manual) 0 % (0.0-1.8); Eosinophils % (Manual) 0 % (0.0-4.3); Total Cells Counted 100
[2019-03-14 09:14] LABS: Anisocytosis 1+; Hypochromasia 1+; Monocytes % (Manual) 18 % (0.0-7.3)
[2019-03-14 09:15] LABS: Stomatocytes Rare; Target Cells Few
[2019-03-14] MEDS: PROTONIX IV SCH ×2 (09:32→21:20)
[2019-03-14] MEDS: VITAMIN K (ADULT ONLY) SUB-Q SCH (09:33)
--- NOTE | 2019-03-14 11:31 | Progress Note ---
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 Variceal banding ligation performed. * Hyperkalemia - resolved * Acute respirtory failure on mechanical ventilation * Transaminitis * Alcohol abuse * Hypernatremia Plan: * Will hold HD today given stable lytes and good urine output; creatinine improving and hopeful for renal recovery * could consider trial of IV diuretics if needed for volume; will defer to ICU team if this may be appropriate for extubation attempts * Will continue to reassess labs and volume status daily and plan for renal re placement therapy as needed * Strict I/O * Transfuse pRBC per GI/primary team * GI recommendations reviewed * Vent management per CCM * Pressors prn to maintain MAP>65 * Abx per primary team * Dose medications for renal function * Avoid potential nephrotoxins * Remains high mortality risk given co-morbidities Thank you for this consult; we will continue to follow and provide recomme ndations from renal standpoint Subjective Date of service: 03/14/19 Principal diagnosis: Ac. GI bleed; hemorrhagic shock; Ac. hypoxemic resp failure; ADRIANNE likley ATN Interval history: no acute events overnight. Spoke with patient's mother at bedside and spent much time discussing renal prognosis. Objective - Exam Narrative Exam: General appearance: intubated EENT: ATNC, other (ETT in place) Respiratory: Present: Other (coarse breath sounds) Cardiology: tachycardia Gastrointestinal: hypoactive bowel sounds, distended Integumentary: no rash Musculoskeletal: other (+trace edema) - Vital Signs Vital signs: Vital Signs - 12hr 03/13/19 03/13/19 03/14/19 23:45 23:47 00:00 Temperature 99.0 F Pulse Rate 84 85 Pulse Rate [ 88 From Monitor] Respiratory 13 13 Rate Blood Pressure 106/60 103/69 O2 Sat by Pulse 97 97 Oximetry 03/14/19 03/14/19 03/14/19 00:13 00:15 00:30 Temperature Pulse Rate 84 81 78 Pulse Rate [ From Monitor] Respiratory 13 13 10 L Rate Blood Pressure 107/64 107/64 101/59 O2 Sat by Pulse 99 98 97 Oximetry 03/14/19 03/14/19 03/14/19 00:45 01:00 01:15 Temperature Pulse Rate 80 75 79 Pulse Rate [ From Monitor] Respiratory 13 11 L 14 Rate Blood Pressure 101/65 101/58 107/62 O2 Sat by Pulse 97 95 97 Oximetry 03/14/19 03/14/19 03/14/19 01:30 01:45 02:00 Temperature Pulse Rate 76 77 80 Pulse Rate [ From Monitor] Respiratory 11 L 13 13 Rate Blood Pressure 97/60 103/64 103/68 O2 Sat by Pulse 96 99 Oximetry 03/14/19 03/14/19 03/14/19 02:15 02:30 02:46 Temperature Pulse Rate 79 75 Pulse Rate [ From Monitor] Respiratory 10 L 11 L Rate Blood Pressure 104/63 102/59 O2 Sat by Pulse 98 96 98 Oximetry 03/14/19 03/14/19 03/14/19 03:00 03:15 03:30 Temperature Pulse Rate 104 H 79 75 Pulse Rate [ From Monitor] Respiratory 28 H 8 L 9 L Rate Blood Pressure 109/71 107/69 O2 Sat by Pulse 92 96 Oximetry 03/14/19 03/14/19 03/14/19 03:45 04:00 04:15 Temperature 98.9 F Pulse Rate 71 75 74 Pulse Rate [ 77 From Monitor] Respiratory 7 L 10 L 12 Rate Blood Pressure 103/62 104/63 100/60 O2 Sat by Pulse 97 98 96 Oximetry 03/14/19 03/14/19 03/14/19 04:30 04:45 05:00 Temperature Pulse Rate 74 74 74 Pulse Rate [ From Monitor] Respiratory 10 L 11 L 12 Rate Blood Pressure 99/61 98/60 101/61 O2 Sat by Pulse 98 97 97 Oximetry 03/14/19 03/14/19 03/14/19 05:14 05:15 05:30 Temperature Pulse Rate 75 75 76 Pulse Rate [ From Monitor] Respiratory 11 L 11 L Rate Blood Pressure 100/60 100/60 98/61 O2 Sat by Pulse 98 96 97 Oximetry 03/14/19 03/14/19 03/14/19 05:45 06:00 06:15 Temperature Pulse Rate 72 75 72 Pulse Rate [ From Monitor] Respiratory 13 11 L 11 L Rate Blood Pressure 98/60 100/59 98/58 O2 Sat by Pulse 97 97 98 Oximetry 03/14/19 03/14/19 03/14/19 06:30 06:45 07:00 Temperature Pulse Rate 73 75 76 Pulse Rate [ From Monitor] Respiratory 10 L 12 10 L Rate Blood Pressure 100/58 102/60 100/59 O2 Sat by Pulse 97 98 Oximetry 03/14/19 03/14/19 03/14/19 07:15 07:30 07:41 Temperature Pulse Rate 93 H 95 H 80 Pulse Rate [ From Monitor] Respiratory 22 22 Rate Blood Pressure 108/66 119/79 119/79 O2 Sat by Pulse 97 94 97 Oximetry 03/14/19 03/14/19 03/14/19 07:45 08:00 08:15 Temperature 97.9 F Pulse Rate 78 75 77 Pulse Rate [ 80 From Monitor] Respiratory 14 13 12 Rate Blood Pressure 104/65 102/61 99/67 O2 Sat by Pulse 95 95 96 Oximetry 03/14/19 03/14/19 03/14/19 08:30 08:35 08:45 Temperature Pulse Rate 80 100 H 81 Pulse Rate [ From Monitor] Respiratory 19 18 Rate Blood Pressure 112/80 112/80 119/79 O2 Sat by Pulse 100 95 Oximetry 03/14/19 03/14/19 03/14/19 09:00 09:15 09:30 Temperature Pulse Rate 76 75 74 Pulse Rate [ From Monitor] Respiratory 12 13 12 Rate Blood Pressure 105/64 104/64 104/63 O2 Sat by Pulse 94 95 96 Oximetry 03/14/19 03/14/19 03/14/19 09:45 10:00 10:15 Temperature Pulse Rate 77 75 76 Pulse Rate [ From Monitor] Respiratory 13 9 L 8 L Rate Blood Pressure 104/65 106/60 106/61 O2 Sat by Pulse 96 Oximetry 03/14/19 03/14/19 03/14/19 10:30 10:46 11:00 Temperature Pulse Rate 95 H Pulse Rate [ From Monitor] Respiratory 18 Rate Blood Pressure 120/77 120/77 110/64 O2 Sat by Pulse 95 87 93 Oximetry 03/14/19 11:15 Temperature Pulse Rate 82 Pulse Rate [ From Monitor] Respiratory 16 Rate Blood Pressure 129/88 O2 Sat by Pulse 100 Oximetry - Lab 03/14/19 05:25 03/14/19 05:25 Most recent lab results ABG pH 7.380 pH Units (7.350-7.450) 03/14/19 Unknown ABG pCO2 43.0 mm Hg 03/14/19 Unknown ABG pO2 102.3 mm Hg (80.0-90.0) H 03/14/19 Unknown ABG HCO3 24.9 mmol/L (20.0-26.0) 03/14/19 Unknown ABG O2 Saturation 97.6 % (95.0-99.0) 03/14/19 Unknown Calcium 6.5 mg/dL (8.4-10.2) L 03/14/19 05:25 Phosphorus 8.60 mg/dL (2.5-4.5) H 03/08/19 22:43 Magnesium 2.30 mg/dL (1.7-2.3) 03/08/19 22:43 Medications & Allergies - Medications Allergies/Adverse Reactions: Allergies No Known Allergies Allergy (Verified 03/08/19 12:31) Home Medications: Home Medications Medication Instructions Recorded Confirmed Last Taken Type No Known Home Medications [No 03/10/19 03/10/19 Unknown History Reported Home Medications] Active Medications: Generic Name Dose Route Start Last Admin Trade Name Garciaq PRN Reason Stop Dose Admin Acetaminophen 650 mg 03/09/19 13:00 03/12/19 06:50 Tylenol MT 650 mg Q4H PRN Administration Pain, Mild (1-3) Albuterol 2.5 mg 03/08/19 14:56 Proventil IH Q3HRT PRN Shortness Of Breath Dextrose 50 ml 03/09/19 01:34 D50w (25gm) Syringe IV PRN PRN Hypoglycemia Fentanyl 50 mcg 03/11/19 17:41 Sublimaze IV Q10MIN PRN ANALGESIA Hydrophilic Ointment 1 applic 03/08/19 22:51 Vaseline Lip Therapy TP Q2HR PRN Dry Lips Norepinephrine 4 mg in 250 mls @ 7.5 mls/hr 03/09/19 04:00 03/09/19 16:15 Levophed Drip 4 Mg/Ns 250 Ml IV 0 mcg/min TITR CHARLIE 0 mls/hr Titration Protocol 2 MCG/MIN Phenylephrine HCl 100 mg/ 100 mls @ 3 mls/hr 03/09/19 08:45 03/12/19 17:00 Sodium Chloride IV 0 mcg/min TITR CHARLIE 0 mls/hr Titration Protocol 50 MCG/MIN Propofol 1,000 mg in 100 mls @ 2.61 mls/hr 03/11/19 02:00 03/12/19 10:15 Diprivan 10 Mg/Ml IV 0 mcg/kg/min TITR CHARLIE 0 mls/hr Titration Protocol 5 MCG/KG/MIN Sodium Chloride 100 mls @ 999 mls/hr 03/11/19 15:50 Nacl 0.9% IV JULIO CESAR PRN Hypotension Fentanyl Citrate 2,000 mcg in 100 mls @ 4.35 mls/hr 03/11/19 18:00 03/12/19 15:00 Fentanyl Drip Premix IV 0 mcg/kg/hr TITR CHARLIE 0 mls/hr Titration Protocol 1 MCG/KG/HR Dextrose/Sodium Chloride 1,000 mls @ 100 mls/hr 03/12/19 14:00 03/14/19 06:38 D5/0.45ns IV 100 mls/hr DIRECT CHARLIE Administration Sodium Chloride 100 mls @ 999 mls/hr 03/13/19 13:20 Nacl 0.9% IV JULIO CESAR PRN Hypotension Piperacillin Sod/Tazobactam Sod 2.25 gm in 50 mls @ 100 mls/hr 03/13/19 16:00 03/14/19 06:38 Zosyn/Ns 2.25 Gm/50ml IV 03/14/19 15:59 100 mls/hr Q8HR CHARLIE Administration Lorazepam 2 mg 03/08/19 14:57 03/10/19 22:43 Ativan IV 2 mg Q1HR PRN Administration CIWA-Ar 8-15 Methylprednisolone Sodium Succinate 40 mg 03/13/19 15:00 03/13/19 15:42 Solu-Medrol IV 40 mg Q24H CHARLIE Administration Metoclopramide HCl 5 mg 03/11/19 09:00 Reglan IV Q6H PRN Nausea And Vomiting Metoprolol Tartrate 5 mg 03/11/19 17:41 03/11/19 20:04 Lopressor IV 5 mg Q6HR PRN Administration Tachyarrhythmias Multi-Ingred Cream/Lotion/Oil/Oint 1 applic 03/08/19 22:51 Artificial Tears Ophth Oint OU Q4HR PRN Dry Eye(s) Pantoprazole Sodium 40 mg 03/12/19 22:00 03/14/19 09:32 Protonix IV 40 mg BID CHARLIE Administration Sodium Chloride 10 ml 03/08/19 22:00 03/14/19 09:33 Sodium Chloride Flush Syringe 10 Ml IV 10 ml BID CHARLIE Administration Sodium Chloride 10 ml 03/08/19 14:56 Sodium Chloride Flush Syringe 10 Ml IV PRN PRN LINE FLUSH
--- NOTE | 2019-03-14 12:58 | Progress Note ---
Assessment and Plan /Acute renal failure, likely ATN - nephrology consulted - renal function did not improve with iv fluid and had minimal urine outpt - started on HD since 03/11 with vascath X2 untill today - renal function now stable - monitor off HD /Acute GI bleed due to large esophageal varices - s/p EGD by GI on 03/09, findings are following 1. A pool of blood in the fundus and cardia, not completely cleared out. 2. Blood in the distal esophagus. 3. 3-4 columns of large varices in the mid and distal esophagus. Variceal banding ligation performed with 5 bands placed successfully. 4. No obvious signs of gastric varices noted. 5. No other obvious source of bleeding noted in the stomach or the examined portion of the duodenum. -Per GI treated with PPI IV and octreotide drip x 76 hr. - s/p 4 units PRBC transfusion, cont to monitor h/h - cont ppi bid, placed on solumedrol /Acute blood loss anemia, - Due to bleeding esophageal varises and DIC - s/p 4 units blood transfusion, monitor h/h /Hypotensive due to acute blood loss vs septic shock due to aspiration PNA - s/p pressors, s/p blood transfusion, cont iv fluid - cont abx for asp PNA, so far cx negative /DIC, s/p FFP and cryoprecipitate transfusion, consulted Dr Sparks - monitor PT/INR, resolved /Coagulopathy with pancytopenia, due to DIC and hepatic cirrhosis, monitor PT/ INR/CBC /history of alcohol abuse, placed on versad - now off /Acute respiratory failure, cont nebs, CC consulted /Sepsis with severe lactic acidosis and leukocytosis, POA - blood Cx negative, possible aspiration PNA, cont abx till gets extubated /Hyperkalemia, resolved /Hypernatremia, cont iv fluid, monitor BMP /Elevated LFT, from alcoholic LD/cirrhosis, cont to trend /Alcoholic hepatic cirrhosis, GI following, monitor LFT, placed on solumedrol DVT Px, SCD - Patient remains critically ill The high probability of a clinically significant, sudden or life threatening deterioration of the [multiple] system(s) required my full and direct attention, intervention and personal management. The aggregate critical care time was [45] minutes. This time is in addition to time spent performing reported procedures but includes the following: [x] Data Review and interpretation [x] Patient assessment and monitoring of vital signs [x] Documentation [x] Medication orders and management Subjective Date of service: 03/14/19 Principal diagnosis: Ac. GI bleed; hemorrhagic shock; Ac. hypoxemic resp failure; ADRIANNE likley ATN Interval history: patient seen and examined On cpap trial on vent off pressor, off sedation Mother at bedside - updated Afebrile Objective - Exam Narrative Exam: General appearance: Present: intubated - EENT Eyes: PERRL, EOM intact ENT: other, no thrush Ears: bilateral: normal - Neck Neck: supple, normal ROM - Respiratory Respiratory effort: normal Respiratory: bilateral: CTA - Breasts Breasts: normal - Cardiovascular Rhythm: regular Heart Sounds: Present: S1 & S2. Absent: gallop, rub Extremities: pulses intact, No edema, normal color, Full ROM - Gastrointestinal General gastrointestinal: Present: soft, non-tender, non-distended, normal bowel sounds - Genitourinary Male genitourinary: normal - Integumentary Integumentary: clear, warm, dry - Musculoskeletal Musculoskeletal: other (no joint swelling) - Neurologic Neurologic: moves all extremities, opens eyes with verbal commend - Psychiatric Psychiatric: other (unable to assess - on vent) - Constitutional Vitals: Vital Signs - 12hr 03/14/19 03/14/19 03/14/19 01:00 01:15 01:30 Temperature Pulse Rate 75 79 76 Pulse Rate [ From Monitor] Respiratory 11 L 14 11 L Rate Blood Pressure 101/58 107/62 97/60 O2 Sat by Pulse 95 97 Oximetry 03/14/19 03/14/19 03/14/19 01:45 02:00 02:15 Temperature Pulse Rate 77 80 79 Pulse Rate [ From Monitor] Respiratory 13 13 10 L Rate Blood Pressure 103/64 103/68 104/63 O2 Sat by Pulse 96 99 98 Oximetry 03/14/19 03/14/19 03/14/19 02:30 02:46 03:00 Temperature Pulse Rate 75 104 H Pulse Rate [ From Monitor] Respiratory 11 L 28 H Rate Blood Pressure 102/59 O2 Sat by Pulse 96 98 92 Oximetry 03/14/19 03/14/19 03/14/19 03:15 03:30 03:45 Temperature Pulse Rate 79 75 71 Pulse Rate [ From Monitor] Respiratory 8 L 9 L 7 L Rate Blood Pressure 109/71 107/69 103/62 O2 Sat by Pulse 96 97 Oximetry 03/14/19 03/14/19 03/14/19 04:00 04:15 04:30 Temperature 98.9 F Pulse Rate 75 74 74 Pulse Rate [ 77 From Monitor] Respiratory 10 L 12 10 L Rate Blood Pressure 104/63 100/60 99/61 O2 Sat by Pulse 98 96 98 Oximetry 03/14/19 03/14/19 03/14/19 04:45 05:00 05:14 Temperature Pulse Rate 74 74 75 Pulse Rate [ From Monitor] Respiratory 11 L 12 Rate Blood Pressure 98/60 101/61 100/60 O2 Sat by Pulse 97 97 98 Oximetry 03/14/19 03/14/19 03/14/19 05:15 05:30 05:45 Temperature Pulse Rate 75 76 72 Pulse Rate [ From Monitor] Respiratory 11 L 11 L 13 Rate Blood Pressure 100/60 98/61 98/60 O2 Sat by Pulse 96 97 97 Oximetry 03/14/19 03/14/19 03/14/19 06:00 06:15 06:30 Temperature Pulse Rate 75 72 73 Pulse Rate [ From Monitor] Respiratory 11 L 11 L 10 L Rate Blood Pressure 100/59 98/58 100/58 O2 Sat by Pulse 97 98 97 Oximetry 03/14/19 03/14/19 03/14/19 06:45 07:00 07:15 Temperature Pulse Rate 75 76 93 H Pulse Rate [ From Monitor] Respiratory 12 10 L 22 Rate Blood Pressure 102/60 100/59 108/66 O2 Sat by Pulse 98 97 Oximetry 03/14/19 03/14/19 03/14/19 07:30 07:41 07:45 Temperature Pulse Rate 95 H 80 78 Pulse Rate [ From Monitor] Respiratory 22 14 Rate Blood Pressure 119/79 119/79 104/65 O2 Sat by Pulse 94 97 95 Oximetry 03/14/19 03/14/19 03/14/19 08:00 08:15 08:30 Temperature 97.9 F Pulse Rate 75 77 80 Pulse Rate [ 80 From Monitor] Respiratory 13 12 19 Rate Blood Pressure 102/61 99/67 112/80 O2 Sat by Pulse 95 96 100 Oximetry 03/14/19 03/14/19 03/14/19 08:35 08:45 09:00 Temperature Pulse Rate 100 H 81 76 Pulse Rate [ From Monitor] Respiratory 18 12 Rate Blood Pressure 112/80 119/79 105/64 O2 Sat by Pulse 95 94 Oximetry 03/14/19 03/14/19 03/14/19 09:15 09:30 09:45 Temperature Pulse Rate 75 74 77 Pulse Rate [ From Monitor] Respiratory 13 12 13 Rate Blood Pressure 104/64 104/63 104/65 O2 Sat by Pulse 95 96 96 Oximetry 03/14/19 03/14/19 03/14/19 10:00 10:15 10:30 Temperature Pulse Rate 75 76 95 H Pulse Rate [ From Monitor] Respiratory 9 L 8 L 18 Rate Blood Pressure 106/60 106/61 120/77 O2 Sat by Pulse 95 Oximetry 03/14/19 03/14/19 03/14/19 10:46 11:00 11:15 Temperature Pulse Rate 82 Pulse Rate [ From Monitor] Respiratory 16 Rate Blood Pressure 120/77 110/64 129/88 O2 Sat by Pulse 87 93 100 Oximetry 03/14/19 03/14/19 03/14/19 11:30 11:45 11:49 Temperature Pulse Rate 130 H 85 94 H Pulse Rate [ From Monitor] Respiratory 36 H 14 Rate Blood Pressure 129/88 118/72 118/72 O2 Sat by Pulse 94 94 95 Oximetry 03/14/19 03/14/19 03/14/19 11:57 11:58 12:00 Temperature 96.9 F L Pulse Rate 80 Pulse Rate [ 82 From Monitor] Respiratory 13 12 Rate Blood Pressure 112/70 O2 Sat by Pulse 99 97 Oximetry - Labs CBC & Chem 7: 03/15/19 04:50 03/15/19 04:50 Labs: Abnormal lab results 03/13/19 03/13/19 03/14/19 Range/Units 17:05 21:23 00:00 WBC (4.5-11.0) K/mm3 RBC (3.65-5.03) M/mm3 Hgb (11.8-15.2) gm/dl Hct (35.5-45.6) % MCV (84-94) fl MCH (28-32) pg MCHC (32-34) % RDW (13.2-15.2) % Plt Count (140-440) K/mm3 Lymphocytes % (Manual) (13.4-35.0) % Monocytes % (Manual) (0.0-7.3) % Lymphocytes # (Manual) (1.2-5.4) K/mm3 ABG pO2 (80.0-90.0) mm Hg ABG Hemoglobin (14.0-18.0) gm/dl Oxyhemoglobin (95.0-99.0) % Chloride (98-107) mmol/L BUN (9-20) mg/dL Creatinine (0.8-1.5) mg/dL Glucose (75-100) mg/dL POC Glucose 111 H 145 H 173 H (70-105) Calcium (8.4-10.2) mg/dL Total Bilirubin (0.1-1.2) mg/dL AST (5-40) units/L ALT (7-56) units/L Total Protein (6.3-8.2) g/dL Albumin (3.9-5) g/dL 03/14/19 03/14/19 03/14/19 Range/Units 04:10 05:25 05:25 WBC 4.2 L (4.5-11.0) K/mm3 RBC 2.20 L (3.65-5.03) M/mm3 Hgb 7.3 L (11.8-15.2) gm/dl Hct 21.0 L (35.5-45.6) % MCV 96 H (84-94) fl MCH 33 H (28-32) pg MCHC 35 H (32-34) % RDW 20.1 H (13.2-15.2) % Plt Count 65 L (140-440) K/mm3 Lymphocytes % (Manual) 6.0 L (13.4-35.0) % Monocytes % (Manual) 18 H (0.0-7.3) % Lymphocytes # (Manual) 0.3 L (1.2-5.4) K/mm3 ABG pO2 (80.0-90.0) mm Hg ABG Hemoglobin (14.0-18.0) gm/dl Oxyhemoglobin (95.0-99.0) % Chloride 108.2 H (98-107) mmol/L BUN 28 H (9-20) mg/dL Creatinine 2.4 H (0.8-1.5) mg/dL Glucose 179 H (75-100) mg/dL POC Glucose 185 H (70-105) Calcium 6.5 L (8.4-10.2) mg/dL Total Bilirubin 9.00 H (0.1-1.2) mg/dL AST 321 H (5-40) units/L ALT 341 H (7-56) units/L Total Protein 5.2 L (6.3-8.2) g/dL Albumin 2.2 L (3.9-5) g/dL 03/14/19 03/14/19 03/14/19 Range/Units 07:34 12:05 Unknown WBC (4.5-11.0) K/mm3 RBC (3.65-5.03) M/mm3 Hgb (11.8-15.2) gm/dl Hct (35.5-45.6) % MCV (84-94) fl MCH (28-32) pg MCHC (32-34) % RDW (13.2-15.2) % Plt Count (140-440) K/mm3 Lymphocytes % (Manual) (13.4-35.0) % Monocytes % (Manual) (0.0-7.3) % Lymphocytes # (Manual) (1.2-5.4) K/mm3 ABG pO2 102.3 H (80.0-90.0) mm Hg ABG Hemoglobin 9.6 L (14.0-18.0) gm/dl Oxyhemoglobin 94.9 L (95.0-99.0) % Chloride (98-107) mmol/L BUN (9-20) mg/dL Creatinine (0.8-1.5) mg/dL Glucose (75-100) mg/dL POC Glucose 190 H 177 H (70-105) Calcium (8.4-10.2) mg/dL Total Bilirubin (0.1-1.2) mg/dL AST (5-40) units/L ALT (7-56) units/L Total Protein (6.3-8.2) g/dL Albumin (3.9-5) g/dL
--- NOTE | 2019-03-14 13:35 | Progress Note ---
Assessment and Plan Acute GI bleed due to large esophageal varices, with hemorrhagic shock s/p EGD by GI, Acute hypoxemic respiratory failure on MVS Possible septic shock, temperature spike Severe lactic acidosis History of alcohol abuse disorder Acute renal failure, likley ATN Hypernatremia Alcoholic hepatic cirrhosis - continue daytime PSV trials; if does not decompensate by nighttime will rest on AC and tentatively extubate after SBT in am - discussed promoting negative fluid balance with nat instructor - complete Vitamin K 10 mg SQ daily X 3 days - continue daily SAT's and SBT's as tolerated - PPI now dosed bid - continue to use fentanyl re: ? pain component to tachyarrythmia - target RASS 0 to -1 - continue prn metoprolol for pulse >/= 130/min - continue HD/UF per nephrology prescription and for volume control - Continue with supportive blood transfusions to keep serum Hb > 7.0 - prn vasopressor support to keep MAP> 60-65 - Monitor hemodynamics closely - VAP bundle addressed - continue to wean FiO2 for sats > 90% at this point (Anemia improved) - Transfuse to keep HgB > 7g/dL, Platelets >/= 50K - continue hoffman catheter re: ADRIANNE - Hypotonic solutions to treat hypernatremia - continue CIWA protocol - PPI, therapeutic dosing, change continuous infusion to BID dosing once ok with G.I. team - continue Strict NPO for now (no NGT or OGT placement to avoid dislodging the bands) - begin daily SAT and SBT assessment as tolerated - continue to avoid nephrotoxins, adjust all medications for GFR and CRCL - SCDs for VTE prophylaxis - continue accuchecks q4 with hypoglycemia protocol; target BG of 140-180 mg/dl acutely - continue to monitor for TRALI - continue other care per attending / other consultants ... re-evaluate in am & prn ..... care plan discussed with his mum at bedside CONDITION: CRITIAL PROGNOSIS: GUARDED CODE STATUS: FULL CODE Discussed extensively with RT/RN and care team in ICU IDT rounds The high probability of a clinically significant, sudden or life threatening deterioration of the respiratory, gastroenterology/hepatology, renal systems required my full and direct attention, intervention and personal management. The aggregate critical care time was 32 minutes. This time is in addition to time spent performing reported procedures but includes the following: [x] Data Review and interpretation [x] Patient assessment and monitoring of vital signs [x] Documentation [x] Medication orders and management Subjective Date of service: 03/14/19 Principal diagnosis: Ac. GI bleed; hemorrhagic shock; Ac. hypoxemic resp failure; ADRIANNE likley ATN Interval history: Patient is seen today for: Ac. GI bleed (esophageal varices); hemorrhagic shock; Ac. hypoxemic resp failure; Possible septic shock; Severe lactic acidosis; H/O alcohol abuse disorder; Acute renal failure, likely ATN; Hypernatremia Seen and examined at bedside; 24hour events reviewed; nursing and respiratory care staff consulted; no adverse overnight events reported to me; resting in bed; on PSV trials and tolerating decently well; mother in room; even more alert and appropriate today; no G.I. bleeding but he complains of increased work of breathing Objective Vital Signs - 12hr 03/14/19 03/14/19 03/14/19 01:45 02:00 02:15 Temperature Pulse Rate 77 80 79 Pulse Rate [ From Monitor] Respiratory 13 13 10 L Rate Blood Pressure 103/64 103/68 104/63 O2 Sat by Pulse 96 99 98 Oximetry 03/14/19 03/14/19 03/14/19 02:30 02:46 03:00 Temperature Pulse Rate 75 104 H Pulse Rate [ From Monitor] Respiratory 11 L 28 H Rate Blood Pressure 102/59 O2 Sat by Pulse 96 98 92 Oximetry 03/14/19 03/14/19 03/14/19 03:15 03:30 03:45 Temperature Pulse Rate 79 75 71 Pulse Rate [ From Monitor] Respiratory 8 L 9 L 7 L Rate Blood Pressure 109/71 107/69 103/62 O2 Sat by Pulse 96 97 Oximetry 03/14/19 03/14/19 03/14/19 04:00 04:15 04:30 Temperature 98.9 F Pulse Rate 75 74 74 Pulse Rate [ 77 From Monitor] Respiratory 10 L 12 10 L Rate Blood Pressure 104/63 100/60 99/61 O2 Sat by Pulse 98 96 98 Oximetry 03/14/19 03/14/19 03/14/19 04:45 05:00 05:14 Temperature Pulse Rate 74 74 75 Pulse Rate [ From Monitor] Respiratory 11 L 12 Rate Blood Pressure 98/60 101/61 100/60 O2 Sat by Pulse 97 97 98 Oximetry 03/14/19 03/14/19 03/14/19 05:15 05:30 05:45 Temperature Pulse Rate 75 76 72 Pulse Rate [ From Monitor] Respiratory 11 L 11 L 13 Rate Blood Pressure 100/60 98/61 98/60 O2 Sat by Pulse 96 97 97 Oximetry 03/14/19 03/14/19 03/14/19 06:00 06:15 06:30 Temperature Pulse Rate 75 72 73 Pulse Rate [ From Monitor] Respiratory 11 L 11 L 10 L Rate Blood Pressure 100/59 98/58 100/58 O2 Sat by Pulse 97 98 97 Oximetry 03/14/19 03/14/19 03/14/19 06:45 07:00 07:15 Temperature Pulse Rate 75 76 93 H Pulse Rate [ From Monitor] Respiratory 12 10 L 22 Rate Blood Pressure 102/60 100/59 108/66 O2 Sat by Pulse 98 97 Oximetry 03/14/19 03/14/19 03/14/19 07:30 07:41 07:45 Temperature Pulse Rate 95 H 80 78 Pulse Rate [ From Monitor] Respiratory 22 14 Rate Blood Pressure 119/79 119/79 104/65 O2 Sat by Pulse 94 97 95 Oximetry 03/14/19 03/14/19 03/14/19 08:00 08:15 08:30 Temperature 97.9 F Pulse Rate 75 77 80 Pulse Rate [ 80 From Monitor] Respiratory 13 12 19 Rate Blood Pressure 102/61 99/67 112/80 O2 Sat by Pulse 95 96 100 Oximetry 03/14/19 03/14/19 03/14/19 08:35 08:45 09:00 Temperature Pulse Rate 100 H 81 76 Pulse Rate [ From Monitor] Respiratory 18 12 Rate Blood Pressure 112/80 119/79 105/64 O2 Sat by Pulse 95 94 Oximetry 03/14/19 03/14/19 03/14/19 09:15 09:30 09:45 Temperature Pulse Rate 75 74 77 Pulse Rate [ From Monitor] Respiratory 13 12 13 Rate Blood Pressure 104/64 104/63 104/65 O2 Sat by Pulse 95 96 96 Oximetry 03/14/19 03/14/19 03/14/19 10:00 10:15 10:30 Temperature Pulse Rate 75 76 95 H Pulse Rate [ From Monitor] Respiratory 9 L 8 L 18 Rate Blood Pressure 106/60 106/61 120/77 O2 Sat by Pulse 95 Oximetry 03/14/19 03/14/19 03/14/19 10:46 11:00 11:15 Temperature Pulse Rate 82 Pulse Rate [ From Monitor] Respiratory 16 Rate Blood Pressure 120/77 110/64 129/88 O2 Sat by Pulse 87 93 100 Oximetry 03/14/19 03/14/19 03/14/19 11:30 11:45 11:49 Temperature Pulse Rate 130 H 85 94 H Pulse Rate [ From Monitor] Respiratory 36 H 14 Rate Blood Pressure 129/88 118/72 118/72 O2 Sat by Pulse 94 94 95 Oximetry 03/14/19 03/14/19 03/14/19 11:57 11:58 12:00 Temperature 96.9 F L Pulse Rate 80 Pulse Rate [ 82 From Monitor] Respiratory 13 12 Rate Blood Pressure 112/70 O2 Sat by Pulse 99 97 Oximetry Constitutional: appears uncomfortable, other (young AM, normocephalic with mildly increased resp effort on MVS) Eyes: icteric ENT: oropharynx moist, other (ETT 23-24 cm YARED) Neck: supple, no lymphadenopathy, no JVD Effort: mildly labored Ascultation: Bilateral: diminished breath sounds, rhonchi Percussion: Bilateral: not dull Cardiovascular: regular rate and rhythm, other (Tachcardia, regular, S1,S2, no murmurs) Gastrointestinal: hypoactive bowel sounds, non-tender, non-distended Integumentary: normal Extremities: no cyanosis, no edema, cool, edema Neurologic: non-focal exam (grossly), pupils equal and round, CN II-XII normal, motor strength normal and, other (sedated lightly) Psychiatric: other (unable to assess / delirious) CBC and BMP: 03/15/19 04:50 03/15/19 04:50 ABG, PT/INR, D-dimer: ABG POC ABG pH 7.375 (7.35-7.45) 03/09/19 02:02 ABG pH 7.380 pH Units (7.350-7.450) 03/14/19 Unknown POC ABG pCO2 31.8 (35-45) L 03/09/19 02:02 ABG pCO2 43.0 mm Hg 03/14/19 Unknown POC ABG pO2 142 (80-105) H 03/09/19 02:02 ABG pO2 102.3 mm Hg (80.0-90.0) H 03/14/19 Unknown POC ABG HCO3 18.6 (22-26 mml/L) 03/09/19 02:02 POC ABG Total CO2 20 (23-27mmol/L) 03/09/19 02:02 POC ABG O2 Sat 99 03/09/19 02:02 ABG O2 Saturation 97.6 % (95.0-99.0) 03/14/19 Unknown PT/INR, D-dimer PT 22.4 Sec. (12.2-14.9) H 03/12/19 07:40 INR 2.02 (0.87-1.13) H 03/12/19 07:40 1494.02 ng/mlDDU (0-234) H 03/09/19 13:50 Abnormal lab findings: Abnormal Labs 03/08/19 03/08/19 03/08/19 09:34 12:57 12:59 WBC RBC 3.14 L Hgb 11.3 L Hct 33.3 L MCV 106 H MCH 36 H MCHC RDW 18.5 H Plt Count 61 L Lymph # Seg Neutrophils % Seg Neuts % (Manual) Lymphocytes % (Manual) 50.0 H Monocytes % (Manual) Eosinophils % (Manual) Basophils % (Manual) Nucleated RBC % Seg Neutrophils # Man Lymphocytes # (Manual) Monocytes # (Manual) PT 16.9 H INR 1.41 H APTT Fibrinogen D-Dimer POC ABG pH ABG pH POC ABG pCO2 POC ABG pO2 ABG pO2 ABG Hemoglobin Oxyhemoglobin Sodium Potassium Chloride Carbon Dioxide BUN Creatinine Glucose POC Glucose Lactic Acid Calcium Phosphorus Iron TIBC Total Bilirubin Direct Bilirubin AST ALT Total Protein Albumin Lipase Urine WBC (Auto) Plasma/Serum Alcohol 0.34 H Crossmatch 03/08/19 03/08/19 03/08/19 13:12 13:14 14:21 WBC RBC Hgb Hct MCV MCH MCHC RDW Plt Count Lymph # Seg Neutrophils % Seg Neuts % (Manual) Lymphocytes % (Manual) Monocytes % (Manual) Eosinophils % (Manual) Basophils % (Manual) Nucleated RBC % Seg Neutrophils # Man Lymphocytes # (Manual) Monocytes # (Manual) PT INR APTT Fibrinogen D-Dimer POC ABG pH ABG pH POC ABG pCO2 POC ABG pO2 ABG pO2 ABG Hemoglobin Oxyhemoglobin Sodium Potassium Chloride 89.4 L Carbon Dioxide 8 L* BUN Creatinine Glucose 74 L POC Glucose Lactic Acid Calcium Phosphorus Iron TIBC Total Bilirubin 4.70 H Direct Bilirubin AST 611 H ALT 153 H Total Protein Albumin Lipase Urine WBC (Auto) 18.0 H Plasma/Serum Alcohol Crossmatch See Detail 03/08/19 03/08/19 03/08/19 20:51 20:51 22:29 WBC 17.0 H RBC 2.21 L Hgb 8.0 L D Hct 26.8 L D MCV 121 H MCH 36 H MCHC 30 L RDW 20.5 H Plt Count 84 L Lymph # Seg Neutrophils % Seg Neuts % (Manual) 83.0 H Lymphocytes % (Manual) 8.0 L Monocytes % (Manual) 9.0 H Eosinophils % (Manual) Basophils % (Manual) Nucleated RBC % 1.0 H Seg Neutrophils # Man 14.1 H Lymphocytes # (Manual) Monocytes # (Manual) 1.5 H PT INR APTT Fibrinogen D-Dimer POC ABG pH ABG pH POC ABG pCO2 POC ABG pO2 ABG pO2 ABG Hemoglobin Oxyhemoglobin Sodium Potassium 7.0 H* D Chloride 90.7 L Carbon Dioxide 3 L* BUN Creatinine 1.6 H Glucose 60 L POC Glucose 48 L Lactic Acid Calcium 8.0 L Phosphorus Iron TIBC Total Bilirubin 5.00 H Direct Bilirubin AST 1815 H ALT 399 H Total Protein Albumin 3.7 L Lipase Urine WBC (Auto) Plasma/Serum Alcohol Crossmatch 03/08/19 03/08/19 03/08/19 22:43 23:00 23:10 WBC RBC Hgb Hct MCV MCH MCHC RDW Plt Count Lymph # Seg Neutrophils % Seg Neuts % (Manual) Lymphocytes % (Manual) Monocytes % (Manual) Eosinophils % (Manual) Basophils % (Manual) Nucleated RBC % Seg Neutrophils # Man Lymphocytes # (Manual) Monocytes # (Manual) PT INR APTT Fibrinogen D-Dimer POC ABG pH ABG pH POC ABG pCO2 POC ABG pO2 ABG pO2 ABG Hemoglobin Oxyhemoglobin Sodium Potassium 7.9 H* Chloride 86.4 L Carbon Dioxide 9 L* BUN Creatinine 1.7 H Glucose 314 H POC Glucose Lactic Acid 23.50 H* Calcium Phosphorus 8.60 H Iron TIBC Total Bilirubin Direct Bilirubin AST ALT Total Protein Albumin Lipase Urine WBC (Auto) Plasma/Serum Alcohol Crossmatch 03/08/19 03/09/1903/09/19 23:50 00:00 00:31 WBC RBC Hgb Hct MCV MCH MCHC RDW Plt Count Lymph # Seg Neutrophils % Seg Neuts % (Manual) Lymphocytes % (Manual) Monocytes % (Manual) Eosinophils % (Manual) Basophils % (Manual) Nucleated RBC % Seg Neutrophils # Man Lymphocytes # (Manual) Monocytes # (Manual) PT INR APTT Fibrinogen D-Dimer POC ABG pH 7.120 L ABG pH POC ABG pCO2 30.7 L POC ABG pO2 130 H ABG pO2 ABG Hemoglobin Oxyhemoglobin Sodium Potassium 6.3 H* D Chloride 93.7 L Carbon Dioxide 11 L BUN 21 H Creatinine 1.7 H Glucose 219 H POC Glucose 206 H Lactic Acid Calcium 8.2 L Phosphorus Iron TIBC Total Bilirubin Direct Bilirubin AST ALT Total Protein Albumin Lipase Urine WBC (Auto) Plasma/Serum Alcohol Crossmatch 03/09/19 03/09/19 03/09/19 00:47 01:45 02:02 WBC RBC 1.72 L Hgb 6.3 L Hct 20.0 L D MCV 117 H MCH 37 H MCHC 31 L RDW 20.9 H Plt Count 62 L Lymph # Seg Neutrophils % Seg Neuts % (Manual) 93.0 H Lymphocytes % (Manual) 6.0 L Monocytes % (Manual) Eosinophils % (Manual) Basophils % (Manual) Nucleated RBC % 1.0 H Seg Neutrophils # Man 9.6 H Lymphocytes # (Manual) 0.6 L Monocytes # (Manual) PT INR APTT Fibrinogen D-Dimer POC ABG pH ABG pH POC ABG pCO2 31.8 L POC ABG pO2 142 H ABG pO2 ABG Hemoglobin Oxyhemoglobin Sodium Potassium Chloride Carbon Dioxide BUN Creatinine Glucose POC Glucose 182 H Lactic Acid Calcium Phosphorus Iron TIBC Total Bilirubin Direct Bilirubin AST ALT Total Protein Albumin Lipase Urine WBC (Auto) Plasma/Serum Alcohol Crossmatch 03/09/19 03/09/19 03/09/19 02:10 02:30 03:00 WBC RBC Hgb Hct MCV MCH MCHC RDW Plt Count Lymph # Seg Neutrophils % Seg Neuts % (Manual) Lymphocytes % (Manual) Monocytes % (Manual) Eosinophils % (Manual) Basophils % (Manual) Nucleated RBC % Seg Neutrophils # Man Lymphocytes # (Manual) Monocytes # (Manual) PT INR APTT Fibrinogen D-Dimer POC ABG pH ABG pH POC ABG pCO2 POC ABG pO2 ABG pO2 ABG Hemoglobin Oxyhemoglobin Sodium 150 H D Potassium Chloride Carbon Dioxide BUN Creatinine Glucose 177 H POC Glucose 178 H Lactic Acid Calcium 10.5 H D Phosphorus Iron 208 H TIBC 185 L Total Bilirubin Direct Bilirubin AST ALT Total Protein Albumin Lipase Urine WBC (Auto) Plasma/Serum Alcohol Crossmatch 03/09/19 03/09/19 03/09/19 04:16 05:46 07:47 WBC RBC 1.06 L Hgb 3.9 L* Hct 11.7 L* D MCV 111 H MCH 37 H MCHC RDW 20.0 H Plt Count 52 L Lymph # Seg Neutrophils % 79.1 H Seg Neuts % (Manual) Lymphocytes % (Manual) Monocytes % (Manual) Eosinophils % (Manual) Basophils % (Manual) Nucleated RBC % Seg Neutrophils # Man Lymphocytes # (Manual) Monocytes # (Manual) PT INR APTT Fibrinogen D-Dimer POC ABG pH ABG pH POC ABG pCO2 POC ABG pO2 ABG pO2 ABG Hemoglobin Oxyhemoglobin Sodium Potassium Chloride Carbon Dioxide BUN Creatinine Glucose POC Glucose 201 H 176 H Lactic Acid Calcium Phosphorus Iron TIBC Total Bilirubin Direct Bilirubin AST ALT Total Protein Albumin Lipase Urine WBC (Auto) Plasma/Serum Alcohol Crossmatch 03/09/19 03/09/19 03/09/19 07:48 07:48 13:50 WBC RBC 2.69 L Hgb 8.9 L D Hct 25.8 L D MCV 96 H MCH 33 H MCHC 35 H RDW 17.1 H Plt Count 49 L Lymph # Seg Neutrophils % 79.1 H Seg Neuts % (Manual) Lymphocytes % (Manual) Monocytes % (Manual) Eosinophils % (Manual) Basophils % (Manual) Nucleated RBC % Seg Neutrophils # Man Lymphocytes # (Manual) Monocytes # (Manual) PT INR APTT Fibrinogen D-Dimer POC ABG pH ABG pH POC ABG pCO2 POC ABG pO2 ABG pO2 ABG Hemoglobin Oxyhemoglobin Sodium 154 H Potassium Chloride 111.2 H Carbon Dioxide 18 L BUN 22 H Creatinine 2.1 H Glucose 131 H POC Glucose Lactic Acid 19.10 H* Calcium Phosphorus Iron TIBC Total Bilirubin Direct Bilirubin AST ALT Total Protein Albumin Lipase Urine WBC (Auto) Plasma/Serum Alcohol Crossmatch 03/09/19 03/09/19 03/09/19 13:50 14:20 16:08 WBC RBC Hgb Hct MCV MCH MCHC RDW Plt Count Lymph # Seg Neutrophils % Seg Neuts % (Manual) Lymphocytes % (Manual) Monocytes % (Manual) Eosinophils % (Manual) Basophils % (Manual) Nucleated RBC % Seg Neutrophils # Man Lymphocytes # (Manual) Monocytes # (Manual) PT 28.2 H INR 2.70 H APTT 41.8 H Fibrinogen 81 L* D-Dimer 1494.02 H POC ABG pH ABG pH POC ABG pCO2 POC ABG pO2 ABG pO2 ABG Hemoglobin Oxyhemoglobin Sodium Potassium Chloride Carbon Dioxide BUN Creatinine Glucose POC Glucose 188 H 235 H Lactic Acid Calcium Phosphorus Iron TIBC Total Bilirubin Direct Bilirubin AST ALT Total Protein Albumin Lipase Urine WBC (Auto) Plasma/Serum Alcohol Crossmatch 03/09/19 03/09/19 03/09/19 17:55 23:26 Unknown WBC RBC Hgb Hct MCV MCH MCHC RDW Plt Count Lymph # Seg Neutrophils % Seg Neuts % (Manual) Lymphocytes % (Manual) Monocytes % (Manual) Eosinophils % (Manual) Basophils % (Manual) Nucleated RBC % Seg Neutrophils # Man Lymphocytes # (Manual) Monocytes # (Manual) PT INR APTT Fibrinogen D-Dimer POC ABG pH ABG pH POC ABG pCO2 POC ABG pO2 ABG pO2 ABG Hemoglobin Oxyhemoglobin Sodium Potassium Chloride Carbon Dioxide BUN Creatinine Glucose POC Glucose 233 H 236 H Lactic Acid Calcium Phosphorus Iron TIBC Total Bilirubin Direct Bilirubin AST ALT Total Protein Albumin Lipase 385 H Urine WBC (Auto) Plasma/Serum Alcohol Crossmatch 03/10/19 03/10/19 03/10/19 00:04 03:36 03:36 WBC RBC 2.11 L Hgb 7.8 L 7.1 L Hct 22.0 L 19.7 L* MCV MCH 34 H MCHC 36 H RDW 17.9 H Plt Count 45 L Lymph # Seg Neutrophils % 73.6 H Seg Neuts % (Manual) 90.0 H Lymphocytes % (Manual) 3.0 L Monocytes % (Manual) Eosinophils % (Manual) Basophils % (Manual) Nucleated RBC % 3.0 H Seg Neutrophils # Man Lymphocytes # (Manual) 0.2 L Monocytes # (Manual) PT INR APTT Fibrinogen D-Dimer POC ABG pH ABG pH POC ABG pCO2 POC ABG pO2 ABG pO2 ABG Hemoglobin Oxyhemoglobin Sodium 150 H Potassium 3.3 L D Chloride 113.2 H Carbon Dioxide BUN 30 H Creatinine 3.4 H D Glucose 196 H POC Glucose Lactic Acid Calcium 8.2 L Phosphorus Iron TIBC Total Bilirubin Direct Bilirubin AST ALT Total Protein Albumin Lipase Urine WBC (Auto) Plasma/Serum Alcohol Crossmatch 03/10/19 03/10/19 03/10/19 03:36 03:53 03:56 WBC RBC Hgb Hct MCV MCH MCHC RDW Plt Count Lymph # Seg Neutrophils % Seg Neuts % (Manual) Lymphocytes % (Manual) Monocytes % (Manual) Eosinophils % (Manual) Basophils % (Manual) Nucleated RBC % Seg Neutrophils # Man Lymphocytes # (Manual) Monocytes # (Manual) PT INR APTT Fibrinogen D-Dimer POC ABG pH ABG pH POC ABG pCO2 POC ABG pO2 ABG pO2 94.7 H ABG Hemoglobin 6.5 L Oxyhemoglobin Sodium Potassium Chloride Carbon Dioxide BUN Creatinine Glucose POC Glucose 212 H Lactic Acid Calcium Phosphorus Iron TIBC Total Bilirubin 4.90 H Direct Bilirubin 3.9 H AST 6235 H ALT 924 H Total Protein 4.2 L D Albumin 2.5 L Lipase Urine WBC (Auto) Plasma/Serum Alcohol Crossmatch 03/10/19 03/10/19 03/10/19 05:58 08:12 09:26 WBC RBC Hgb Hct MCV MCH MCHC RDW Plt Count Lymph # Seg Neutrophils % Seg Neuts % (Manual) Lymphocytes % (Manual) Monocytes % (Manual) Eosinophils % (Manual) Basophils % (Manual) Nucleated RBC % Seg Neutrophils # Man Lymphocytes # (Manual) Monocytes # (Manual) PT 29.3 H INR 2.83 H APTT Fibrinogen D-Dimer POC ABG pH ABG pH POC ABG pCO2 POC ABG pO2 ABG pO2 ABG Hemoglobin Oxyhemoglobin Sodium Potassium Chloride Carbon Dioxide BUN Creatinine Glucose POC Glucose 171 H 197 H Lactic Acid Calcium Phosphorus Iron TIBC Total Bilirubin Direct Bilirubin AST ALT Total Protein Albumin Lipase Urine WBC (Auto) Plasma/Serum Alcohol Crossmatch 03/10/19 03/10/19 03/10/19 11:40 14:04 16:18 WBC RBC Hgb 6.7 L Hct 18.8 L* MCV MCH MCHC RDW Plt Count Lymph # Seg Neutrophils % Seg Neuts % (Manual) Lymphocytes % (Manual) Monocytes % (Manual) Eosinophils % (Manual) Basophils % (Manual) Nucleated RBC % Seg Neutrophils # Man Lymphocytes # (Manual) Monocytes # (Manual) PT INR APTT Fibrinogen D-Dimer POC ABG pH ABG pH POC ABG pCO2 POC ABG pO2 ABG pO2 ABG Hemoglobin Oxyhemoglobin Sodium Potassium Chloride Carbon Dioxide BUN Creatinine Glucose POC Glucose 178 H 192 H Lactic Acid Calcium Phosphorus Iron TIBC Total Bilirubin Direct Bilirubin AST ALT Total Protein Albumin Lipase Urine WBC (Auto) Plasma/Serum Alcohol Crossmatch 03/10/19 03/10/19 03/11/19 21:42 22:00 00:05 WBC RBC Hgb 7.4 L Hct 21.1 L MCV MCH MCHC RDW Plt Count Lymph # Seg Neutrophils % Seg Neuts % (Manual) Lymphocytes % (Manual) Monocytes % (Manual) Eosinophils % (Manual) Basophils % (Manual) Nucleated RBC % Seg Neutrophils # Man Lymphocytes # (Manual) Monocytes # (Manual) PT INR APTT Fibrinogen D-Dimer POC ABG pH ABG pH POC ABG pCO2 POC ABG pO2 ABG pO2 ABG Hemoglobin Oxyhemoglobin Sodium Potassium Chloride Carbon Dioxide BUN Creatinine Glucose POC Glucose 174 H 136 H Lactic Acid Calcium Phosphorus Iron TIBC Total Bilirubin Direct Bilirubin AST ALT Total Protein Albumin Lipase Urine WBC (Auto) Plasma/Serum Alcohol Crossmatch 03/11/19 03/11/19 03/11/19 04:04 04:15 04:15 WBC RBC 2.28 L Hgb 7.4 L Hct 20.8 L MCV MCH 33 H MCHC 36 H RDW 18.4 H Plt Count 38 L Lymph # 1.1 L Seg Neutrophils % 72.7 H Seg Neuts % (Manual) Lymphocytes % (Manual) Monocytes % (Manual) Eosinophils % (Manual) Basophils % (Manual) Nucleated RBC % Seg Neutrophils # Man Lymphocytes # (Manual) Monocytes # (Manual) PT INR APTT Fibrinogen D-Dimer POC ABG pH ABG pH POC ABG pCO2 POC ABG pO2 ABG pO2 ABG Hemoglobin Oxyhemoglobin Sodium 147 H Potassium 3.2 L Chloride 109.2 H Carbon Dioxide BUN 34 H Creatinine 5.0 H Glucose 132 H POC Glucose 133 H Lactic Acid Calcium 7.5 L Phosphorus Iron TIBC Total Bilirubin 7.40 H Direct Bilirubin AST 3748 H ALT 864 H Total Protein 4.7 L Albumin 2.5 L Lipase Urine WBC (Auto) Plasma/Serum Alcohol Crossmatch 03/11/19 03/11/19 03/11/19 04:25 08:28 12:03 WBC RBC Hgb Hct MCV MCH MCHC RDW Plt Count Lymph # Seg Neutrophils % Seg Neuts % (Manual) Lymphocytes % (Manual) Monocytes % (Manual) Eosinophils % (Manual) Basophils % (Manual) Nucleated RBC % Seg Neutrophils # Man Lymphocytes # (Manual) Monocytes # (Manual) PT INR APTT Fibrinogen D-Dimer POC ABG pH ABG pH 7.467 H POC ABG pCO2 POC ABG pO2 ABG pO2 69.6 L ABG Hemoglobin 7.4 L Oxyhemoglobin 94.3 L Sodium Potassium Chloride Carbon Dioxide BUN Creatinine Glucose POC Glucose 128 H 122 H Lactic Acid Calcium Phosphorus Iron TIBC Total Bilirubin Direct Bilirubin AST ALT Total Protein Albumin Lipase Urine WBC (Auto) Plasma/Serum Alcohol Crossmatch 03/11/19 03/11/19 03/11/19 17:01 20:09 23:58 WBC RBC Hgb Hct MCV MCH MCHC RDW Plt Count Lymph # Seg Neutrophils % Seg Neuts % (Manual) Lymphocytes % (Manual) Monocytes % (Manual) Eosinophils % (Manual) Basophils % (Manual) Nucleated RBC % Seg Neutrophils # Man Lymphocytes # (Manual) Monocytes # (Manual) PT INR APTT Fibrinogen D-Dimer POC ABG pH ABG pH POC ABG pCO2 POC ABG pO2 ABG pO2 ABG Hemoglobin Oxyhemoglobin Sodium Potassium Chloride Carbon Dioxide BUN Creatinine Glucose POC Glucose 135 H 155 H 119 H Lactic Acid Calcium Phosphorus Iron TIBC Total Bilirubin Direct Bilirubin AST ALT Total Protein Albumin Lipase Urine WBC (Auto) Plasma/Serum Alcohol Crossmatch 03/12/19 03/12/19 03/12/19 03:00 04:10 05:24 WBC RBC Hgb Hct MCV MCH MCHC RDW Plt Count Lymph # Seg Neutrophils % Seg Neuts % (Manual) Lymphocytes % (Manual) Monocytes % (Manual) Eosinophils % (Manual) Basophils % (Manual) Nucleated RBC % Seg Neutrophils # Man Lymphocytes # (Manual) Monocytes # (Manual) PT INR APTT Fibrinogen D-Dimer POC ABG pH ABG pH 7.467 H POC ABG pCO2 POC ABG pO2 ABG pO2 77.8 L ABG Hemoglobin 7.3 L Oxyhemoglobin 94.2 L Sodium Potassium Chloride Carbon Dioxide BUN Creatinine Glucose POC Glucose 137 H 137 H Lactic Acid Calcium Phosphorus Iron TIBC Total Bilirubin Direct Bilirubin AST ALT Total Protein Albumin Lipase Urine WBC (Auto) Plasma/Serum Alcohol Crossmatch 03/12/19 03/12/19 03/12/19 07:40 07:40 08:40 WBC RBC 2.24 L Hgb 7.4 L Hct 20.9 L MCV MCH 33 H MCHC 35 H RDW 19.0 H Plt Count 45 L Lymph # Seg Neutrophils % Seg Neuts % (Manual) 76.0 H Lymphocytes % (Manual) Monocytes % (Manual) Eosinophils % (Manual) Basophils % (Manual) Nucleated RBC % 11.0 H Seg Neutrophils # Man Lymphocytes # (Manual) 1.1 L Monocytes # (Manual) PT 22.4 H INR 2.02 H APTT 45.4 H Fibrinogen D-Dimer POC ABG pH ABG pH POC ABG pCO2 POC ABG pO2 ABG pO2 ABG Hemoglobin Oxyhemoglobin Sodium Potassium Chloride Carbon Dioxide BUN Creatinine Glucose POC Glucose 132 H Lactic Acid Calcium Phosphorus Iron TIBC Total Bilirubin Direct Bilirubin AST ALT Total Protein Albumin Lipase Urine WBC (Auto) Plasma/Serum Alcohol Crossmatch 03/12/19 03/12/19 03/12/19 12:00 16:51 Unknown WBC RBC Hgb Hct MCV MCH MCHC RDW Plt Count Lymph # Seg Neutrophils % Seg Neuts % (Manual) Lymphocytes % (Manual) Monocytes % (Manual) Eosinophils % (Manual) Basophils % (Manual) Nucleated RBC % Seg Neutrophils # Man Lymphocytes # (Manual) Monocytes # (Manual) PT INR APTT Fibrinogen D-Dimer POC ABG pH ABG pH POC ABG pCO2 POC ABG pO2 ABG pO2 ABG Hemoglobin Oxyhemoglobin Sodium Potassium Chloride Carbon Dioxide BUN 26 H Creatinine 4.1 H Glucose 128 H POC Glucose 160 H 122 H Lactic Acid Calcium 7.0 L Phosphorus Iron TIBC Total Bilirubin Direct Bilirubin AST ALT Total Protein Albumin Lipase Urine WBC (Auto) Plasma/Serum Alcohol Crossmatch 03/12/19 03/13/19 03/13/19 Unknown 03:45 04:11 WBC 4.2 L RBC 2.09 L Hgb 6.8 L Hct 19.6 L* MCV MCH 33 H MCHC 35 H RDW 20.2 H Plt Count 44 L Lymph # Seg Neutrophils % Seg Neuts % (Manual) Lymphocytes % (Manual) 7.0 L Monocytes % (Manual) 32.0 H Eosinophils % (Manual) 5.0 H Basophils % (Manual) 2.0 H Nucleated RBC % 12.0 H Seg Neutrophils # Man 0.0 L Lymphocytes # (Manual) 0.0 L Monocytes # (Manual) PT INR APTT Fibrinogen D-Dimer POC ABG pH ABG pH POC ABG pCO2 POC ABG pO2 ABG pO2 62.5 L ABG Hemoglobin 7.6 L Oxyhemoglobin 92.3 L Sodium Potassium Chloride Carbon Dioxide BUN Creatinine Glucose POC Glucose Lactic Acid Calcium Phosphorus Iron TIBC Total Bilirubin 8.90 H Direct Bilirubin 7.4 H AST 2116 H ALT 767 H Total Protein 5.1 L Albumin 2.3 L Lipase Urine WBC (Auto) Plasma/Serum Alcohol Crossmatch 03/13/19 03/13/19 03/13/19 04:11 08:04 12:04 WBC RBC Hgb 7.0 L Hct 20.0 L MCV MCH MCHC RDW Plt Count Lymph # Seg Neutrophils % Seg Neuts % (Manual) Lymphocytes % (Manual) Monocytes % (Manual) Eosinophils % (Manual) Basophils % (Manual) Nucleated RBC % Seg Neutrophils # Man Lymphocytes # (Manual) Monocytes # (Manual) PT INR APTT Fibrinogen D-Dimer POC ABG pH ABG pH POC ABG pCO2 POC ABG pO2 ABG pO2 ABG Hemoglobin Oxyhemoglobin Sodium Potassium 3.0 L Chloride Carbon Dioxide BUN 27 H Creatinine 3.7 H Glucose POC Glucose 114 H Lactic Acid Calcium 6.3 L Phosphorus Iron TIBC Total Bilirubin Direct Bilirubin AST ALT Total Protein Albumin Lipase Urine WBC (Auto) Plasma/Serum Alcohol Crossmatch 03/13/19 03/13/19 03/14/19 17:05 21:23 00:00 WBC RBC Hgb Hct MCV MCH MCHC RDW Plt Count Lymph # Seg Neutrophils % Seg Neuts % (Manual) Lymphocytes % (Manual) Monocytes % (Manual) Eosinophils % (Manual) Basophils % (Manual) Nucleated RBC % Seg Neutrophils # Man Lymphocytes # (Manual) Monocytes # (Manual) PT INR APTT Fibrinogen D-Dimer POC ABG pH ABG pH POC ABG pCO2 POC ABG pO2 ABG pO2 ABG Hemoglobin Oxyhemoglobin Sodium Potassium Chloride Carbon Dioxide BUN Creatinine Glucose POC Glucose 111 H 145 H 173 H Lactic Acid Calcium Phosphorus Iron TIBC Total Bilirubin Direct Bilirubin AST ALT Total Protein Albumin Lipase Urine WBC (Auto) Plasma/Serum Alcohol Crossmatch 03/14/19 03/14/19 03/14/19 04:10 05:25 05:25 WBC 4.2 L RBC 2.20 L Hgb 7.3 L Hct 21.0 L MCV 96 H MCH 33 H MCHC 35 H RDW 20.1 H Plt Count 65 L Lymph # Seg Neutrophils % Seg Neuts % (Manual) Lymphocytes % (Manual) 6.0 L Monocytes % (Manual) 18 H Eosinophils % (Manual) Basophils % (Manual) Nucleated RBC % Seg Neutrophils # Man Lymphocytes # (Manual) 0.3 L Monocytes # (Manual) PT INR APTT Fibrinogen D-Dimer POC ABG pH ABG pH POC ABG pCO2 POC ABG pO2 ABG pO2 ABG Hemoglobin Oxyhemoglobin Sodium Potassium Chloride 108.2 H Carbon Dioxide BUN 28 H Creatinine 2.4 H Glucose 179 H POC Glucose 185 H Lactic Acid Calcium 6.5 L Phosphorus Iron TIBC Total Bilirubin 9.00 H Direct Bilirubin AST 321 H ALT 341 H Total Protein 5.2 L Albumin 2.2 L Lipase Urine WBC (Auto) Plasma/Serum Alcohol Crossmatch 03/14/19 03/14/19 03/14/19 07:34 12:05 Unknown WBC RBC Hgb Hct MCV MCH MCHC RDW Plt Count Lymph # Seg Neutrophils % Seg Neuts % (Manual) Lymphocytes % (Manual) Monocytes % (Manual) Eosinophils % (Manual) Basophils % (Manual) Nucleated RBC % Seg Neutrophils # Man Lymphocytes # (Manual) Monocytes # (Manual) PT INR APTT Fibrinogen D-Dimer POC ABG pH ABG pH POC ABG pCO2 POC ABG pO2 ABG pO2 102.3 H ABG Hemoglobin 9.6 L Oxyhemoglobin 94.9 L Sodium Potassium Chloride Carbon Dioxide BUN Creatinine Glucose POC Glucose 190 H 177 H Lactic Acid Calcium Phosphorus Iron TIBC Total Bilirubin Direct Bilirubin AST ALT Total Protein Albumin Lipase Urine WBC (Auto) Plasma/Serum Alcohol Crossmatch Chest x-ray: image reviewed (mild interstitial edema) Allied health notes reviewed: nursing
[2019-03-14] MEDS: SOLU-Medrol IV SCH (14:53)
--- NOTE | 2019-03-14 15:25 | Progress Note ---
Assessment and Plan 1. Variceal bleed - s/p banding. No evidence of ongoing GI bleed. 2. Alcoholic hepatitis/cirrhosis - very ill. LFTs much better, spontaneously. Renal failure improving. On prednisolone. - continue prednisolone for now - recheck INR on vit K Subjective Date of service: 03/14/19 Principal diagnosis: Ac. GI bleed; hemorrhagic shock; Ac. hypoxemic resp failure; ADRIANNE likley ATN Interval history: Pt on ventilator on CPAP, but responding appropriately. Denies abd discomfort. Mother at bedside. Objective - Constitutional Vitals: Vital Signs - 12hr 03/14/19 03/14/19 03/14/19 03:30 03:45 04:00 Temperature 98.9 F Pulse Rate 75 71 75 Pulse Rate [ 77 From Monitor] Respiratory 9 L 7 L 10 L Rate Blood Pressure 107/69 103/62 104/63 O2 Sat by Pulse 97 98 Oximetry 03/14/19 03/14/19 03/14/19 04:15 04:30 04:45 Temperature Pulse Rate 74 74 74 Pulse Rate [ From Monitor] Respiratory 12 10 L 11 L Rate Blood Pressure 100/60 99/61 98/60 O2 Sat by Pulse 96 98 97 Oximetry 03/14/19 03/14/19 03/14/19 05:00 05:14 05:15 Temperature Pulse Rate 74 75 75 Pulse Rate [ From Monitor] Respiratory 12 11 L Rate Blood Pressure 101/61 100/60 100/60 O2 Sat by Pulse 97 98 96 Oximetry 03/14/19 03/14/19 03/14/19 05:30 05:45 06:00 Temperature Pulse Rate 76 72 75 Pulse Rate [ From Monitor] Respiratory 11 L 13 11 L Rate Blood Pressure 98/61 98/60 100/59 O2 Sat by Pulse 97 97 97 Oximetry 03/14/19 03/14/19 03/14/19 06:15 06:30 06:45 Temperature Pulse Rate 72 73 75 Pulse Rate [ From Monitor] Respiratory 11 L 10 L 12 Rate Blood Pressure 98/58 100/58 102/60 O2 Sat by Pulse 98 97 Oximetry 03/14/19 03/14/19 03/14/19 07:00 07:15 07:30 Temperature Pulse Rate 76 93 H 95 H Pulse Rate [ From Monitor] Respiratory 10 L 22 22 Rate Blood Pressure 100/59 108/66 119/79 O2 Sat by Pulse 98 97 94 Oximetry 03/14/19 03/14/19 03/14/19 07:41 07:45 08:00 Temperature 97.9 F Pulse Rate 80 78 75 Pulse Rate [ 80 From Monitor] Respiratory 14 13 Rate Blood Pressure 119/79 104/65 102/61 O2 Sat by Pulse 97 95 95 Oximetry 03/14/19 03/14/19 03/14/19 08:15 08:30 08:35 Temperature Pulse Rate 77 80 100 H Pulse Rate [ From Monitor] Respiratory 12 19 Rate Blood Pressure 99/67 112/80 112/80 O2 Sat by Pulse 96 100 95 Oximetry 03/14/19 03/14/19 03/14/19 08:45 09:00 09:15 Temperature Pulse Rate 81 76 75 Pulse Rate [ From Monitor] Respiratory 18 12 13 Rate Blood Pressure 119/79 105/64 104/64 O2 Sat by Pulse 94 95 Oximetry 03/14/19 03/14/19 03/14/19 09:30 09:45 10:00 Temperature Pulse Rate 74 77 75 Pulse Rate [ From Monitor] Respiratory 12 13 9 L Rate Blood Pressure 104/63 104/65 106/60 O2 Sat by Pulse 96 96 Oximetry 03/14/19 03/14/19 03/14/19 10:15 10:30 10:46 Temperature Pulse Rate 76 95 H Pulse Rate [ From Monitor] Respiratory 8 L 18 Rate Blood Pressure 106/61 120/77 120/77 O2 Sat by Pulse 95 87 Oximetry 03/14/19 03/14/19 03/14/19 11:00 11:15 11:30 Temperature Pulse Rate 82 130 H Pulse Rate [ From Monitor] Respiratory 16 36 H Rate Blood Pressure 110/64 129/88 129/88 O2 Sat by Pulse 93 100 94 Oximetry 03/14/19 03/14/19 03/14/19 11:45 11:49 11:57 Temperature 96.9 F L Pulse Rate 85 94 H Pulse Rate [ From Monitor] Respiratory 14 Rate Blood Pressure 118/72 118/72 O2 Sat by Pulse 94 95 Oximetry 03/14/19 03/14/19 11:58 12:00 Temperature Pulse Rate 80 Pulse Rate [ 82 From Monitor] Respiratory 13 12 Rate Blood Pressure 112/70 O2 Sat by Pulse 99 97 Oximetry General appearance: Present: no acute distress, other (Intubated) - EENT Eyes: PERRL, EOM intact, conjunctival injection ENT: hearing intact - Respiratory Respiratory effort: normal - Cardiovascular Rhythm: regular Heart Sounds: Present: S1 & S2 Extremity abnormal: edema (2+) - Gastrointestinal General gastrointestinal: Present: soft, non-tender - Labs CBC & Chem 7: 03/14/19 05:25 03/14/19 05:25 Labs: Abnormal lab results 03/13/19 03/13/19 03/14/19 Range/Units 17:05 21:23 00:00 WBC (4.5-11.0) K/mm3 RBC (3.65-5.03) M/mm3 Hgb (11.8-15.2) gm/dl Hct (35.5-45.6) % MCV (84-94) fl MCH (28-32) pg MCHC (32-34) % RDW (13.2-15.2) % Plt Count (140-440) K/mm3 Lymphocytes % (Manual) (13.4-35.0) % Monocytes % (Manual) (0.0-7.3) % Lymphocytes # (Manual) (1.2-5.4) K/mm3 ABG pO2 (80.0-90.0) mm Hg ABG Hemoglobin (14.0-18.0) gm/dl Oxyhemoglobin (95.0-99.0) % Chloride (98-107) mmol/L BUN (9-20) mg/dL Creatinine (0.8-1.5) mg/dL Glucose (75-100) mg/dL POC Glucose 111 H 145 H 173 H (70-105) Calcium (8.4-10.2) mg/dL Total Bilirubin (0.1-1.2) mg/dL AST (5-40) units/L ALT (7-56) units/L Total Protein (6.3-8.2) g/dL Albumin (3.9-5) g/dL 03/14/19 03/14/19 03/14/19 Range/Units 04:10 05:25 05:25 WBC 4.2 L (4.5-11.0) K/mm3 RBC 2.20 L (3.65-5.03) M/mm3 Hgb 7.3 L (11.8-15.2) gm/dl Hct 21.0 L (35.5-45.6) % MCV 96 H (84-94) fl MCH 33 H (28-32) pg MCHC 35 H (32-34) % RDW 20.1 H (13.2-15.2) % Plt Count 65 L (140-440) K/mm3 Lymphocytes % (Manual) 6.0 L (13.4-35.0) % Monocytes % (Manual) 18 H (0.0-7.3) % Lymphocytes # (Manual) 0.3 L (1.2-5.4) K/mm3 ABG pO2 (80.0-90.0) mm Hg ABG Hemoglobin (14.0-18.0) gm/dl Oxyhemoglobin (95.0-99.0) % Chloride 108.2 H (98-107) mmol/L BUN 28 H (9-20) mg/dL Creatinine 2.4 H (0.8-1.5) mg/dL Glucose 179 H (75-100) mg/dL POC Glucose 185 H (70-105) Calcium 6.5 L (8.4-10.2) mg/dL Total Bilirubin 9.00 H (0.1-1.2) mg/dL AST 321 H (5-40) units/L ALT 341 H (7-56) units/L Total Protein 5.2 L (6.3-8.2) g/dL Albumin 2.2 L (3.9-5) g/dL 03/14/19 03/14/19 03/14/19 Range/Units 07:34 12:05 Unknown WBC (4.5-11.0) K/mm3 RBC (3.65-5.03) M/mm3 Hgb (11.8-15.2) gm/dl Hct (35.5-45.6) % MCV (84-94) fl MCH (28-32) pg MCHC (32-34) % RDW (13.2-15.2) % Plt Count (140-440) K/mm3 Lymphocytes % (Manual) (13.4-35.0) % Monocytes % (Manual) (0.0-7.3) % Lymphocytes # (Manual) (1.2-5.4) K/mm3 ABG pO2 102.3 H (80.0-90.0) mm Hg ABG Hemoglobin 9.6 L (14.0-18.0) gm/dl Oxyhemoglobin 94.9 L (95.0-99.0) % Chloride (98-107) mmol/L BUN (9-20) mg/dL Creatinine (0.8-1.5) mg/dL Glucose (75-100) mg/dL POC Glucose 190 H 177 H (70-105) Calcium (8.4-10.2) mg/dL Total Bilirubin (0.1-1.2) mg/dL AST (5-40) units/L ALT (7-56) units/L Total Protein (6.3-8.2) g/dL Albumin (3.9-5) g/dL Medications & Allergies - Medications Allergies/Adverse Reactions: Allergies No Known Allergies Allergy (Verified 03/08/19 12:31) Home Medications: Home Medications Medication Instructions Recorded Confirmed Last Taken Type No Known Home Medications [No 03/10/19 03/10/19 Unknown History Reported Home Medications] Active Medications: Generic Name Dose Route Start Last Admin Trade Name Garciaq PRN Reason Stop Dose Admin Acetaminophen 650 mg 03/09/19 13:00 03/12/19 06:50 Tylenol OK 650 mg Q4H PRN Administration Pain, Mild (1-3) Albuterol 2.5 mg 03/08/19 14:56 Proventil IH Q3HRT PRN Shortness Of Breath Dextrose 50 ml 03/09/19 01:34 D50w (25gm) Syringe IV PRN PRN Hypoglycemia Fentanyl 50 mcg 03/11/19 17:41 Sublimaze IV Q10MIN PRN ANALGESIA Hydrophilic Ointment 1 applic 03/08/19 22:51 Vaseline Lip Therapy TP Q2HR PRN Dry Lips Norepinephrine 4 mg in 250 mls @ 7.5 mls/hr 03/09/19 04:00 03/09/19 16:15 Levophed Drip 4 Mg/Ns 250 Ml IV 0 mcg/min TITR CHARLIE 0 mls/hr Titration Protocol 2 MCG/MIN Phenylephrine HCl 100 mg/ 100 mls @ 3 mls/hr 03/09/19 08:45 03/12/19 17:00 Sodium Chloride IV 0 mcg/min TITR CHARLIE 0 mls/hr Titration Protocol 50 MCG/MIN Propofol 1,000 mg in 100 mls @ 2.61 mls/hr 03/11/19 02:00 03/14/19 14:23 Diprivan 10 Mg/Ml IV 0 mcg/kg/min TITR CHARLIE 0 mls/hr Titration Protocol 5 MCG/KG/MIN Fentanyl Citrate 2,000 mcg in 100 mls @ 4.35 mls/hr 03/11/19 18:00 03/14/19 14:18 Fentanyl Drip Premix IV 0 mcg/kg/hr TITR CHARLIE 0 mls/hr Titration Protocol 1 MCG/KG/HR Dextrose/Sodium Chloride 1,000 mls @ 100 mls/hr 03/12/19 14:00 03/14/19 12:03 D5/0.45ns IV 0 mls/hr DIRECT CHARLIE Infusion Sodium Chloride 100 mls @ 999 mls/hr 03/13/19 13:20 Nacl 0.9% IV JULIO CESAR PRN Hypotension Piperacillin Sod/Tazobactam Sod 2.25 gm in 50 mls @ 100 mls/hr 03/13/19 16:00 03/14/19 13:24 Zosyn/Ns 2.25 Gm/50ml IV 03/14/19 15:59 100 mls/hr Q8HR CHARLIE Administration Lorazepam 2 mg 03/08/19 14:57 03/10/19 22:43 Ativan IV 2 mg Q1HR PRN Administration CIWA-Ar 8-15 Methylprednisolone Sodium Succinate 40 mg 03/13/19 15:00 03/14/19 14:53 Solu-Medrol IV 40 mg Q24H CHARLIE Administration Metoclopramide HCl 5 mg 03/11/19 09:00 Reglan IV Q6H PRN Nausea And Vomiting Metoprolol Tartrate 5 mg 03/11/19 17:41 03/11/19 20:04 Lopressor IV 5 mg Q6HR PRN Administration Tachyarrhythmias Multi-Ingred Cream/Lotion/Oil/Oint 1 applic 03/08/19 22:51 Artificial Tears Ophth Oint OU Q4HR PRN Dry Eye(s) Pantoprazole Sodium 40 mg 03/12/19 22:00 03/14/19 09:32 Protonix IV 40 mg BID CHARLIE Administration Sodium Chloride 10 ml 03/08/19 22:00 03/14/19 09:33 Sodium Chloride Flush Syringe 10 Ml IV 10 ml BID CHARLIE Administration Sodium Chloride 10 ml 03/08/19 14:56 Sodium Chloride Flush Syringe 10 Ml IV PRN PRN LINE FLUSH
[2019-03-14] MEDS ORDERED: VITAMIN K (ADULT ONLY) 10 MG in NACL 0.9% 50 ML IV ONE (16:00)
[2019-03-15] MEDS: ATIVAN IV PRN (00:15)
[2019-03-15 01:31] LABS: INR 1.58 (0.87-1.13)
[2019-03-15] MEDS: SUBLIMAZE IV PRN (03:04)
[2019-03-15] MEDS: DIPRIVAN 10 MG/ML 1,000 MG/100 ML BOTTLE IV SCH (03:05)
--- NOTE | 2019-03-15 04:05 | XRay Report ---
CHEST 1 VIEW [id number] INDICATION / CLINICAL INFORMATION: follow up respiratory failure. COMPARISON: 03/14/2019 FINDINGS: SUPPORT DEVICES: Stable HEART / MEDIASTINUM: Stable LUNGS / PLEURA: Bibasilar areas of infiltrate and atelectasis continue with mild worsening on the lef t. Small bilateral pleural effusions are again seen. No pneumothorax. ADDITIONAL FINDINGS: No significant additional findings. IMPRESSION: Mild worsening of left infiltrate Signer Name: Ta Waterman MD Signed: 03/15/2019 4:01 AM Workstation Name: [facility]
[2019-03-15 05:28] LABS: Hematocrit 22.2 % (35.5-45.6); Hemoglobin 7.6 gm/dl (11.8-15.2); Mean Corpuscular HGB Conc 34 % (32-34); Mean Corpuscular Volume 97 fl (84-94); Platelet Count 109 K/mm3 (140-440)
[2019-03-15 05:31] LABS: Red Cell Distribution Width 22.5 % (13.2-15.2)
[2019-03-15 05:48] LABS: Albumin 2.6 g/dL (3.9-5); Calcium 6.7 mg/dL (8.4-10.2)
[2019-03-15 07:36] LABS: Band Neutrophils # (Manual) 0.1 K/mm3; Basophils % (Manual) 0 % (0.0-1.8); Eosinophils % (Manual) 0 % (0.0-4.3); Total Cells Counted 100
[2019-03-15 07:37] LABS: Target Cells 1+
[2019-03-15 07:38] LABS: Macrocytosis Rare; Ovalocytes Few; Platelet Estimate Consistent w Auto; Schistocytes Rare
--- NOTE | 2019-03-15 07:41 | Hem/Onc Progress Note ---
Assessment and Plan 1. h/o Anemia. Hemoglobin was 3 secondary to gastrointestinal bleed. 2. h/o Thrombocytopenia, likely secondary to consumption and liver disease. 3. h/o Low fibrinogen and elevated PT, PTT, secondary to DIC/consumption. 4. h/o Abnormal liver function test. 5. The patient's blood pressure was low and was on pressors. 6. s/p Intubation. 7. History of cirrhosis. 8. History of alcohol usage and smoking. 9. Esophagogastroduodenoscopy showed varices, status post intervention. 10. The patient got octreotide infusion. 11. s/p cryoprecipitate as fibrinogen level is low. His LFTs are abnormal. Vitamin k may not benefit, we have option of FFPs. There is a mention of chest x-ray for monitoring TRALI. Vit K trial follow labs supportive care for now 03/15 - plt better - observe for now - Patient Problems (1) Thrombocytopenia Current Visit: Yes Status: Acute Subjective Date of service: 03/15/19 Principal diagnosis: low plt - anemia Interval history: awake - intubated Objective - Exam Narrative Exam: Pain - pt on vent General appearance intubated Performance status complete dependence Eyes - icterus ENT - no bleeding - INTUBATED LNs cervical not palpable Neck - no LN Respiratory Normal Breath sounds - decreased air entry CVS S1 S2 + Extremities normal temperature General GI Rectal deferred male - deferred Skin warm Musculoskeletal - moves limbs Neurologically awake - Constitutional Vitals: Last Vital Signs Temp 98.5 F 03/15/19 04:00 Pulse 73 03/15/19 06:15 Resp 16 03/15/19 06:15 BP 114/71 03/15/19 06:15 Pulse Ox 96 03/15/19 06:15 - Labs Lab Results: Laboratory Results - last 24 hr 03/14/19 03/14/19 03/14/19 05:25 12:05 16:02 WBC RBC Hgb Hct MCV MCH MCHC RDW Plt Count Gaines % (Auto) Add Manual Diff Complete Total Counted 100 Seg Neuts % (Manual) 70 Band Neutrophils % 6.0 Lymphocytes % (Manual) 6.0 L Reactive Lymphs % (Man) 0 Monocytes % (Manual) 18 H Eosinophils % (Manual) 0 Basophils % (Manual) 0 Metamyelocytes % 0 Myelocytes % 0 Promyelocytes % 0 Blast Cells % 0 Nucleated RBC % Not Reportable Seg Neutrophils # Man 2.9 Band Neutrophils # 0.3 Lymphocytes # (Manual) 0.3 L Abs React Lymphs (Man) 0.0 Monocytes # (Manual) 0.7 Eosinophils # (Manual) 0.0 Basophils # (Manual) 0.0 Metamyelocytes # 0.0 Myelocytes # 0.0 Promyelocytes # 0.0 Blast Cells # 0.0 WBC Morphology Not Reportable Hypersegmented Neuts Not Reportable Hyposegmented Neuts Not Reportable Hypogranular Neuts Not Reportable Smudge Cells Not Reportable Toxic Granulation Not Reportable Toxic Vacuolation Not Reportable Dohle Bodies Not Reportable Pelger-Huet Anomaly Not Reportable Meng Rods Not Reportable Platelet Estimate Not Reportable Clumped Platelets Not Reportable Plt Clumps, EDTA Not Reportable Large Platelets Not Reportable Giant Platelets Not Reportable Platelet Satelliting Not Reportable Plt Morphology Comment Not Reportable RBC Morphology Not Reportable Dimorphic RBCs Not Reportable Polychromasia Few Hypochromasia 1+ Poikilocytosis Not Reportable Anisocytosis 1+ Microcytosis Not Reportable Macrocytosis Not Reportable Spherocytes Not Reportable Pappenheimer Bodies Not Reportable Sickle Cells Not Reportable Target Cells Few Tear Drop Cells Not Reportable Ovalocytes Not Reportable Stomatocytes Rare Helmet Cells Not Reportable [place] Bodies Not Reportable [place] Rings Not Reportable [place] Cells Not Reportable Bite Cells Not Reportable Crenated Cell Not Reportable Elliptocytes Not Reportable Acanthocytes (Spur) Not Reportable Rouleaux Not Reportable Hemoglobin C Crystals Not Reportable Schistocytes Not Reportable Malaria parasites Not Reportable Santy Bodies Not Reportable Hem Pathologist Commnt No PT INR POC ABG pH POC ABG pO2 POC ABG HCO3 POC ABG Total CO2 POC ABG O2 Sat POC ABG Base Excess FiO2 Sodium Potassium Chloride Carbon Dioxide Anion Gap BUN Creatinine Estimated GFR BUN/Creatinine Ratio Glucose POC Glucose 177 H 140 H Calcium Ferritin Total Bilirubin AST ALT Alkaline Phosphatase Total Protein Albumin Albumin/Globulin Ratio 03/14/19 03/14/19 03/15/19 20:13 23:28 01:00 WBC RBC Hgb Hct MCV MCH MCHC RDW Plt Count Gaines % (Auto) Add Manual Diff Total Counted Seg Neuts % (Manual) Band Neutrophils % Lymphocytes % (Manual) Reactive Lymphs % (Man) Monocytes % (Manual) Eosinophils % (Manual) Basophils % (Manual) Metamyelocytes % Myelocytes % Promyelocytes % Blast Cells % Nucleated RBC % Seg Neutrophils # Man Band Neutrophils # Lymphocytes # (Manual) Abs React Lymphs (Man) Monocytes # (Manual) Eosinophils # (Manual) Basophils # (Manual) Metamyelocytes # Myelocytes # Promyelocytes # Blast Cells # WBC Morphology Hypersegmented Neuts Hyposegmented Neuts Hypogranular Neuts Smudge Cells Toxic Granulation Toxic Vacuolation Dohle Bodies Pelger-Huet Anomaly Meng Rods Platelet Estimate Clumped Platelets Plt Clumps, EDTA Large Platelets Giant Platelets Platelet Satelliting Plt Morphology Comment RBC Morphology Dimorphic RBCs Polychromasia Hypochromasia Poikilocytosis Anisocytosis Microcytosis Macrocytosis Spherocytes Pappenheimer Bodies Sickle Cells Target Cells Tear Drop Cells Ovalocytes Stomatocytes Helmet Cells [place] Bodies [place] Rings Nancie Cells Bite Cells Crenated Cell Elliptocytes Acanthocytes (Spur) Rouleaux Hemoglobin C Crystals Schistocytes Malaria parasites Santy Bodies Hem Pathologist Commnt PT 18.5 H INR 1.58 H POC ABG pH POC ABG pO2 POC ABG HCO3 POC ABG Total CO2 POC ABG O2 Sat POC ABG Base Excess FiO2 Sodium Potassium Chloride Carbon Dioxide Anion Gap BUN Creatinine Estimated GFR BUN/Creatinine Ratio Glucose POC Glucose 145 H 140 H Calcium Ferritin Total Bilirubin AST ALT Alkaline Phosphatase Total Protein Albumin Albumin/Globulin Ratio 03/15/19 03/15/19 03/15/19 04:08 04:45 04:50 WBC 9.6 RBC 2.30 L Hgb 7.6 L Hct 22.2 L MCV 97 H MCH 33 H MCHC 34 RDW 22.5 H Plt Count 109 L Gaines % (Auto) [employer] Add Manual Diff Complete Total Counted 100 Seg Neuts % (Manual) 87.0 H Band Neutrophils % 1.0 Lymphocytes % (Manual) 6.0 L Reactive Lymphs % (Man) 0 Monocytes % (Manual) 4.0 Eosinophils % (Manual) 0 Basophils % (Manual) 0 Metamyelocytes % 2.0 Myelocytes % 0 Promyelocytes % 0 Blast Cells % 0 Nucleated RBC % 1.0 H Seg Neutrophils # Man 8.4 H Band Neutrophils # 0.1 Lymphocytes # (Manual) 0.6 L Abs React Lymphs (Man) 0.0 Monocytes # (Manual) 0.4 Eosinophils # (Manual) 0.0 Basophils # (Manual) 0.0 Metamyelocytes # 0.2 Myelocytes # 0.0 Promyelocytes # 0.0 Blast Cells # 0.0 WBC Morphology Not Reportable Hypersegmented Neuts Not Reportable Hyposegmented Neuts Not Reportable Hypogranular Neuts Not Reportable Smudge Cells Not Reportable Toxic Granulation Not Reportable Toxic Vacuolation Not Reportable Dohle Bodies Not Reportable Pelger-Huet Anomaly Not Reportable Meng Rods Not Reportable Platelet Estimate Consistent w auto Clumped Platelets Not Reportable Plt Clumps, EDTA Not Reportable Large Platelets Not Reportable Giant Platelets Not Reportable Platelet Satelliting Not Reportable Plt Morphology Comment Not Reportable RBC Morphology Not Reportable Dimorphic RBCs Not Reportable Polychromasia Few Hypochromasia Not Reportable Poikilocytosis Not Reportable Anisocytosis Not Reportable Microcytosis Not Reportable Macrocytosis Rare Spherocytes Not Reportable Pappenheimer Bodies Not Reportable Sickle Cells Not Reportable Target Cells 1+ Tear Drop Cells Not Reportable Ovalocytes Few Stomatocytes Helmet Cells Not Reportable [place] Bodies Not Reportable [place] Rings Not Reportable Nancie Cells Not Reportable Bite Cells Not Reportable Crenated Cell Not Reportable Elliptocytes Not Reportable Acanthocytes (Spur) Not Reportable Rouleaux Not Reportable Hemoglobin C Crystals Not Reportable Schistocytes Rare Malaria parasites Not Reportable Santy Bodies Not Reportable Hem Pathologist Commnt No PT INR POC ABG pH 7.574 H POC ABG pO2 123 H POC ABG HCO3 25.1 POC ABG Total CO2 26 POC ABG O2 Sat 99 POC ABG Base Excess 3 FiO2 30 Sodium Potassium Chloride Carbon Dioxide Anion Gap BUN Creatinine Estimated GFR BUN/Creatinine Ratio Glucose POC Glucose 136 H Calcium Ferritin Total Bilirubin AST ALT Alkaline Phosphatase Total Protein Albumin Albumin/Globulin Ratio 03/15/19 03/15/19 04:50 04:50 WBC RBC Hgb Hct MCV MCH MCHC RDW Plt Count Gaines % (Auto) Add Manual Diff Total Counted Seg Neuts % (Manual) Band Neutrophils % Lymphocytes % (Manual) Reactive Lymphs % (Man) Monocytes % (Manual) Eosinophils % (Manual) Basophils % (Manual) Metamyelocytes % Myelocytes % Promyelocytes % Blast Cells % Nucleated RBC % Seg Neutrophils # Man Band Neutrophils # Lymphocytes # (Manual) Abs React Lymphs (Man) Monocytes # (Manual) Eosinophils # (Manual) Basophils # (Manual) Metamyelocytes # Myelocytes # Promyelocytes # Blast Cells # WBC Morphology Hypersegmented Neuts Hyposegmented Neuts Hypogranular Neuts Smudge Cells Toxic Granulation Toxic Vacuolation Dohle Bodies Pelger-Huet Anomaly Meng Rods Platelet Estimate Clumped Platelets Plt Clumps, EDTA Large Platelets Giant Platelets Platelet Satelliting Plt Morphology Comment RBC Morphology Dimorphic RBCs Polychromasia Hypochromasia Poikilocytosis Anisocytosis Microcytosis Macrocytosis Spherocytes Pappenheimer Bodies Sickle Cells Target Cells Tear Drop Cells Ovalocytes Stomatocytes Helmet Cells [place] Bodies [place] Rings Nancie Cells Bite Cells Crenated Cell Elliptocytes Acanthocytes (Spur) Rouleaux Hemoglobin C Crystals Schistocytes Malaria parasites Santy Bodies Hem Pathologist Commnt PT INR POC ABG pH POC ABG pO2 POC ABG HCO3 POC ABG Total CO2 POC ABG O2 Sat POC ABG Base Excess FiO2 Sodium 146 H Potassium 3.5 L Chloride 109.7 H Carbon Dioxide 26 Anion Gap 14 BUN 29 H Creatinine 1.8 H Estimated GFR 45 BUN/Creatinine Ratio 16 Glucose 134 H POC Glucose Calcium 6.7 L Ferritin 4122.0 H Total Bilirubin 8.00 H AST 204 H ALT 272 H Alkaline Phosphatase 63 Total Protein 5.4 L Albumin 2.6 L Albumin/Globulin Ratio 0.9 Medications & Allergies - Medications Allergies/Adverse Reactions: Allergies No Known Allergies Allergy (Verified 03/08/19 12:31) Home Medications: Home Medications Medication Instructions Recorded Confirmed Last Taken Type No Known Home Medications [No 03/10/19 03/10/19 Unknown History Reported Home Medications] Active Medications: Generic Name Dose Route Start Last Admin Trade Name Freq PRN Reason Stop Dose Admin Acetaminophen 650 mg 03/09/19 13:00 03/12/19 06:50 Tylenol MA 650 mg Q4H PRN Administration Pain, Mild (1-3) Albuterol 2.5 mg 03/08/19 14:56 Proventil IH Q3HRT PRN Shortness Of Breath Dextrose 50 ml 03/09/19 01:34 D50w (25gm) Syringe IV PRN PRN Hypoglycemia Fentanyl 50 mcg 03/11/19 17:41 03/15/19 03:04 Sublimaze IV 50 mcg Q10MIN PRN Administration ANALGESIA Hydrophilic Ointment 1 applic 03/08/19 22:51 Vaseline Lip Therapy TP Q2HR PRN Dry Lips Norepinephrine 4 mg in 250 mls @ 7.5 mls/hr 03/09/19 04:00 03/09/19 16:15 Levophed Drip 4 Mg/Ns 250 Ml IV 0 mcg/min TITR CHARLIE 0 mls/hr Titration Protocol 2 MCG/MIN Phenylephrine HCl 100 mg/ 100 mls @ 3 mls/hr 03/09/19 08:45 03/12/19 17:00 Sodium Chloride IV 0 mcg/min TITR CHARLIE 0 mls/hr Titration Protocol 50 MCG/MIN Propofol 1,000 mg in 100 mls @ 2.61 mls/hr 03/11/19 02:00 03/15/19 04:39 Diprivan 10 Mg/Ml IV 0 mcg/kg/min TITR CHARLIE 0 mls/hr Titration Protocol 5 MCG/KG/MIN Fentanyl Citrate 2,000 mcg in 100 mls @ 4.35 mls/hr 03/11/19 18:00 03/14/19 14:18 Fentanyl Drip Premix IV 0 mcg/kg/hr TITR CHARLIE 0 mls/hr Titration Protocol 1 MCG/KG/HR Sodium Chloride 100 mls @ 999 mls/hr 03/13/19 13:20 Nacl 0.9% IV JULIO CESAR PRN Hypotension Lorazepam 2 mg 03/08/19 14:57 03/15/19 00:15 Ativan IV 2 mg Q1HR PRN Administration KIKE-Jayro 8-15 Methylprednisolone Sodium Succinate 40 mg 03/13/19 15:00 03/14/19 14:53 Solu-Medrol IV 40 mg Q24H CHARLIE Administration Metoclopramide HCl 5 mg 03/11/19 09:00 Reglan IV Q6H PRN Nausea And Vomiting Metoprolol Tartrate 5 mg 03/11/19 17:41 03/11/19 20:04 Lopressor IV 5 mg Q6HR PRN Administration Tachyarrhythmias Multi-Ingred Cream/Lotion/Oil/Oint 1 applic 03/08/19 22:51 Artificial Tears Ophth Oint OU Q4HR PRN Dry Eye(s) Pantoprazole Sodium 40 mg 03/12/19 22:00 03/14/19 21:20 Protonix IV 40 mg BID CHARLIE Administration Sodium Chloride 10 ml 03/08/19 22:00 03/14/19 09:33 Sodium Chloride Flush Syringe 10 Ml IV 10 ml BID CHARLIE Administration Sodium Chloride 10 ml 03/08/19 14:56 Sodium Chloride Flush Syringe 10 Ml IV PRN PRN LINE FLUSH
--- NOTE | 2019-03-15 09:26 | Progress Note ---
Subjective Principal diagnosis: low plt Interval history: Patient was seen today for follow-up on multiple renal related issues remains intubated More alert, awake Follows command renal function improving Events over 24 hours vitals, labs, intake and output. Medications were reviewed Allergies: Reviewed Past medical history: Reviewed Social history: Reviewed Family history: Reviewed Current medications: Reviewed Physical examination Vitals: Reviewed Gen.: No acute distress, alert HEENT: Oral mucosa moist. No icterus Neck: Supple, no JVD Chest: Clear to auscultation anteriorly and posteriorly. No wheezes Heart: Regular rate and rhythm, S1, S2 heard, no S3, S4 Abdomen: Soft, nontender. No renal bruit. No CVA tenderness. No suprapubic fullness Extremity: Dry skin, less than 1+ edema Skin: Dry skin. No purpuric rash Assessment and plan Acute renal failure: Patient does not require any further dialysis Renal function continues to improve Continue to monitor labs. Avoid any nephrotoxic medication Discussed with ICU nurse to the dialysis catheter can be removed at this time Pancytopenia, multifactorial, being followed by hematology oncology Mild hypokalemia. Please replace and follow please keep potassium around 4.0 Renal prognosis is guarded at this time We'll continue to follow and make recommendation from renal standpoint Objective - Vital Signs Vital signs: Vital Signs - 12hr 03/14/19 03/14/19 03/14/19 21:30 21:45 22:00 Temperature Pulse Rate 76 77 75 Pulse Rate [ From Monitor] Respiratory 13 12 13 Rate Blood Pressure 113/70 111/71 110/68 O2 Sat by Pulse 96 97 Oximetry 03/14/19 03/14/19 03/14/19 22:15 22:30 22:39 Temperature Pulse Rate 81 85 92 H Pulse Rate [ From Monitor] Respiratory 13 13 17 Rate Blood Pressure 119/81 124/81 124/81 O2 Sat by Pulse 96 95 Oximetry 03/14/19 03/14/19 03/14/19 22:45 22:46 23:00 Temperature Pulse Rate 78 77 81 Pulse Rate [ From Monitor] Respiratory 14 14 15 Rate Blood Pressure 112/72 124/81 112/72 O2 Sat by Pulse 94 95 94 Oximetry 03/14/19 03/14/19 03/14/19 23:15 23:30 23:45 Temperature Pulse Rate 75 86 76 Pulse Rate [ From Monitor] Respiratory 14 21 14 Rate Blood Pressure 118/78 132/90 118/78 O2 Sat by Pulse 96 95 Oximetry 03/15/19 03/15/19 03/15/19 00:00 00:15 00:30 Temperature 98.2 F Pulse Rate 75 88 76 Pulse Rate [ 80 From Monitor] Respiratory 14 21 14 Rate Blood Pressure 115/76 132/84 119/80 O2 Sat by Pulse 94 97 97 Oximetry 03/15/19 03/15/19 03/15/19 00:41 00:45 01:00 Temperature Pulse Rate 91 H 86 102 H Pulse Rate [ From Monitor] Respiratory 16 26 H Rate Blood Pressure 119/80 129/86 118/76 O2 Sat by Pulse 97 98 98 Oximetry 03/15/19 03/15/19 03/15/19 01:15 01:30 01:45 Temperature Pulse Rate 78 86 131 H Pulse Rate [ From Monitor] Respiratory 15 13 31 H Rate Blood Pressure 129/86 122/69 122/69 O2 Sat by Pulse 97 96 87 Oximetry 03/15/19 03/15/19 03/15/19 02:00 02:15 02:30 Temperature Pulse Rate 101 H 145 H 113 H Pulse Rate [ From Monitor] Respiratory 21 27 H 28 H Rate Blood Pressure 134/91 134/91 147/93 O2 Sat by Pulse 91 95 88 Oximetry 03/15/19 03/15/19 03/15/19 02:45 03:00 03:15 Temperature Pulse Rate 99 H 112 H 90 Pulse Rate [ From Monitor] Respiratory 19 22 15 Rate Blood Pressure 132/87 135/91 122/73 O2 Sat by Pulse 94 93 Oximetry 03/15/19 03/15/19 03/15/19 03:30 03:45 04:00 Temperature 98.5 F Pulse Rate 86 83 84 Pulse Rate [ 89 From Monitor] Respiratory 13 13 15 Rate Blood Pressure 115/71 115/71 113/69 O2 Sat by Pulse 94 Oximetry 03/15/19 03/15/19 03/15/19 04:05 04:13 04:15 Temperature Pulse Rate 78 78 Pulse Rate [ From Monitor] Respiratory 14 14 Rate Blood Pressure 113/69 109/62 O2 Sat by Pulse 96 98 Oximetry 03/15/19 03/15/19 03/15/19 04:30 04:45 05:00 Temperature Pulse Rate 81 77 75 Pulse Rate [ From Monitor] Respiratory 14 15 15 Rate Blood Pressure 116/68 112/67 119/72 O2 Sat by Pulse 89 Oximetry 03/15/19 03/15/19 03/15/19 05:15 05:30 05:45 Temperature Pulse Rate 82 75 75 Pulse Rate [ From Monitor] Respiratory 16 12 11 L Rate Blood Pressure 112/66 114/68 114/68 O2 Sat by Pulse 93 94 95 Oximetry 03/15/19 03/15/19 03/15/19 06:00 06:15 06:30 Temperature Pulse Rate 71 73 73 Pulse Rate [ From Monitor] Respiratory 14 16 15 Rate Blood Pressure 113/68 114/71 109/71 O2 Sat by Pulse 96 96 95 Oximetry 03/15/19 03/15/19 03/15/19 06:45 07:00 07:15 Temperature Pulse Rate 69 73 73 Pulse Rate [ From Monitor] Respiratory 13 15 14 Rate Blood Pressure 111/70 107/74 111/72 O2 Sat by Pulse Oximetry 03/15/19 03/15/19 03/15/19 07:30 07:42 07:45 Temperature Pulse Rate 73 81 93 H Pulse Rate [ From Monitor] Respiratory 13 22 Rate Blood Pressure 113/75 121/79 121/79 O2 Sat by Pulse 95 97 Oximetry 03/15/19 03/15/19 08:00 08:23 Temperature Pulse Rate 74 85 Pulse Rate [ From Monitor] Respiratory 14 17 Rate Blood Pressure 114/75 118/78 O2 Sat by Pulse 97 96 Oximetry - Lab 03/15/19 04:50 03/15/19 04:50 Most recent lab results ABG pH 7.380 pH Units (7.350-7.450) 03/14/19 Unknown ABG pCO2 43.0 mm Hg 03/14/19 Unknown ABG pO2 102.3 mm Hg (80.0-90.0) H 03/14/19 Unknown ABG HCO3 24.9 mmol/L (20.0-26.0) 03/14/19 Unknown ABG O2 Saturation 97.6 % (95.0-99.0) 03/14/19 Unknown Calcium 6.7 mg/dL (8.4-10.2) L 03/15/19 04:50 Phosphorus 8.60 mg/dL (2.5-4.5) H 03/08/19 22:43 Magnesium 2.30 mg/dL (1.7-2.3) 03/08/19 22:43 Medications & Allergies - Medications Allergies/Adverse Reactions: Allergies No Known Allergies Allergy (Verified 03/08/19 12:31) Home Medications: Home Medications Medication Instructions Recorded Confirmed Last Taken Type No Known Home Medications [No 03/10/19 03/10/19 Unknown History Reported Home Medications] Active Medications: Generic Name Dose Route Start Last Admin Trade Name Freq PRN Reason Stop Dose Admin Acetaminophen 650 mg 03/09/19 13:00 03/12/19 06:50 Tylenol [place] 650 mg Q4H PRN Administration Pain, Mild (1-3) Albuterol 2.5 mg 03/08/19 14:56 Proventil IH Q3HRT PRN Shortness Of Breath Dextrose 50 ml 03/09/19 01:34 D50w (25gm) Syringe IV PRN PRN Hypoglycemia Fentanyl 50 mcg 03/11/19 17:41 03/15/19 03:04 Sublimaze IV 50 mcg Q10MIN PRN Administration ANALGESIA Hydrophilic Ointment 1 applic 03/08/19 22:51 Vaseline Lip Therapy TP Q2HR PRN Dry Lips Norepinephrine 4 mg in 250 mls @ 7.5 mls/hr 03/09/19 04:00 03/09/19 16:15 Levophed Drip 4 Mg/Ns 250 Ml IV 0 mcg/min TITR CHARLIE 0 mls/hr Titration Protocol 2 MCG/MIN Phenylephrine HCl 100 mg/ 100 mls @ 3 mls/hr 03/09/19 08:45 03/12/19 17:00 Sodium Chloride IV 0 mcg/min TITR CHARLIE 0 mls/hr Titration Protocol 50 MCG/MIN Propofol 1,000 mg in 100 mls @ 2.61 mls/hr 03/11/19 02:00 03/15/19 04:39 Diprivan 10 Mg/Ml IV 0 mcg/kg/min TITR CHARLIE 0 mls/hr Titration Protocol 5 MCG/KG/MIN Fentanyl Citrate 2,000 mcg in 100 mls @ 4.35 mls/hr 03/11/19 18:00 03/14/19 14:18 Fentanyl Drip Premix IV 0 mcg/kg/hr TITR CHARLIE 0 mls/hr Titration Protocol 1 MCG/KG/HR Sodium Chloride 100 mls @ 999 mls/hr 03/13/19 13:20 Nacl 0.9% IV JULIO CESAR PRN Hypotension Lorazepam 2 mg 03/08/19 14:57 03/15/19 00:15 Ativan IV 2 mg Q1HR PRN Administration CIWA-Ar 8-15 Methylprednisolone Sodium Succinate 40 mg 03/13/19 15:00 03/14/19 14:53 Solu-Medrol IV 40 mg Q24H CHARLIE Administration Metoclopramide HCl 5 mg 03/11/19 09:00 Reglan IV Q6H PRN Nausea And Vomiting Metoprolol Tartrate 5 mg 03/11/19 17:41 03/11/19 20:04 Lopressor IV 5 mg Q6HR PRN Administration Tachyarrhythmias Multi-Ingred Cream/Lotion/Oil/Oint 1 applic 03/08/19 22:51 Artificial Tears Ophth Oint OU Q4HR PRN Dry Eye(s) Pantoprazole Sodium 40 mg 03/12/19 22:00 03/14/19 21:20 Protonix IV 40 mg BID CHARLIE Administration Sodium Chloride 10 ml 03/08/19 22:00 03/14/19 09:33 Sodium Chloride Flush Syringe 10 Ml IV 10 ml BID CHARLIE Administration Sodium Chloride 10 ml 03/08/19 14:56 Sodium Chloride Flush Syringe 10 Ml IV PRN PRN LINE FLUSH
[2019-03-15] MEDS: PROTONIX IV SCH ×2 (09:52→22:00)
[2019-03-15] MEDS: SODIUM CHLORIDE FLUSH SYRINGE 10 ML IV SCH ×3 (09:52→22:42)
--- NOTE | 2019-03-15 11:44 | Progress Note ---
Assessment and Plan /Acute GI bleed due to large esophageal varices - s/p EGD by GI on 03/09, findings are following 1. A pool of blood in the fundus and cardia, not completely cleared out. 2. Blood in the distal esophagus. 3. 3-4 columns of large varices in the mid and distal esophagus. Variceal banding ligation performed with 5 bands placed successfully. 4. No obvious signs of gastric varices noted. 5. No other obvious source of bleeding noted in the stomach or the examined portion of the duodenum. -Per GI treated with PPI IV and octreotide drip x 76 hr. - s/p 4 units PRBC transfusion, cont to monitor h/h - cont ppi bid, placed on prednisone by GI /Acute blood loss anemia, - Due to bleeding esophageal varises and DIC - s/p 4 units blood transfusion, monitor h/h /Acute renal failure, likely ATN - nephrology consulted - renal function did not improve with iv fluid and had minimal urine outpt - started on HD since 03/11 with vascath X2 untill today - renal function now stable - monitor off HD /Hypotensive due to acute blood loss vs septic shock due to aspiration PNA - s/p pressors, s/p blood transfusion, cont iv fluid - cont abx for asp PNA, so far cx negative /DIC, s/p FFP and cryoprecipitate transfusion, consulted Dr Sparks - monitor PT/INR, resolved /Coagulopathy with pancytopenia, due to DIC and hepatic cirrhosis, monitor PT/INR/CBC /history of alcohol abuse, placed on versad - now off /Acute respiratory failure, cont nebs, CC consulted - wean off vent as tolerated /Sepsis with severe lactic acidosis and leukocytosis, POA - blood Cx negative, possible aspiration PNA, cont abx per ID /Hyperkalemia, resolved /Hypernatremia, cont iv fluid, monitor BMP /Elevated LFT, from alcoholic LD/cirrhosis, cont to trend /Alcoholic hepatic cirrhosis, GI following, monitor LFT, placed on prednisone DVT Px, SCD - Patient remains critically ill The high probability of a clinically significant, sudden or life threatening deterioration of the [multiple] system(s) required my full and direct attention, intervention and personal management. The aggregate critical care time was [45] minutes. This time is in addition to time spent performing reported procedures but includes the following: [x] Data Review and interpretation [x] Patient assessment and monitoring of vital signs [x] Documentation [x] Medication orders and management Brief history; This is a 28 yo male with pmh of alcohol abuse presenting to the ED for an episode of hematemesis last night and melena intermittently x 1 week. He had another episode of hematemesis in the ED but no additional episode since then. H e denies abdominal pain. He is drowsy and history is limited. Reports last drink with alcohol this morning and last night. Subjective Date of service: 03/15/19 Principal diagnosis: Ac. GI bleed; hemorrhagic shock; Ac. hypoxemic resp failure; ADRIANNE likley ATN Interval history: patient seen and examined On cpap trial on vent off pressor, off sedation Mother at bedside - updated Afebrile Objective - Exam Narrative Exam: General appearance: Present: intubated - EENT Eyes: PERRL, EOM intact ENT: other, no thrush Ears: bilateral: normal - Neck Neck: supple, normal ROM - Respiratory Respiratory effort: normal Respiratory: bilateral: CTA - Breasts Breasts: normal - Cardiovascular Rhythm: regular Heart Sounds: Present: S1 & S2. Absent: gallop, rub Extremities: pulses intact, No edema, normal color, Full ROM - Gastrointestinal General gastrointestinal: Present: soft, non-tender, non-distended, normal bowel sounds - Genitourinary Male genitourinary: normal - Integumentary Integumentary: clear, warm, dry - Musculoskeletal Musculoskeletal: other (no joint swelling) - Neurologic Neurologic: moves all extremities, opens eyes with verbal commend - Psychiatric Psychiatric: other (unable to assess - on vent) - Constitutional Vitals: Vital Signs - 12hr 03/14/19 03/15/19 03/15/19 23:45 00:00 00:15 Temperature 98.2 F Pulse Rate 76 75 88 Pulse Rate [ 80 From Monitor] Respiratory 14 14 21 Rate Blood Pressure 118/78 115/76 132/84 O2 Sat by Pulse 95 94 97 Oximetry 03/15/19 03/15/19 03/15/19 00:30 00:41 00:45 Temperature Pulse Rate 76 91 H 86 Pulse Rate [ From Monitor] Respiratory 14 16 Rate Blood Pressure 119/80 119/80 129/86 O2 Sat by Pulse 97 97 98 Oximetry 03/15/19 03/15/19 03/15/19 01:00 01:15 01:30 Temperature Pulse Rate 102 H 78 86 Pulse Rate [ From Monitor] Respiratory 26 H 15 13 Rate Blood Pressure 118/76 129/86 122/69 O2 Sat by Pulse 98 97 96 Oximetry 03/15/19 03/15/19 03/15/19 01:45 02:00 02:15 Temperature Pulse Rate 131 H 101 H 145 H Pulse Rate [ From Monitor] Respiratory 31 H 21 27 H Rate Blood Pressure 122/69 134/91 134/91 O2 Sat by Pulse 87 91 95 Oximetry 03/15/19 03/15/19 03/15/19 02:30 02:45 03:00 Temperature Pulse Rate 113 H 99 H 112 H Pulse Rate [ From Monitor] Respiratory 28 H 19 22 Rate Blood Pressure 147/93 132/87 135/91 O2 Sat by Pulse 88 94 Oximetry 03/15/19 03/15/19 03/15/19 03:15 03:30 03:45 Temperature Pulse Rate 90 86 83 Pulse Rate [ From Monitor] Respiratory 15 13 13 Rate Blood Pressure 122/73 115/71 115/71 O2 Sat by Pulse 93 Oximetry 03/15/19 03/15/19 03/15/19 04:00 04:05 04:13 Temperature 98.5 F Pulse Rate 84 78 Pulse Rate [ 89 From Monitor] Respiratory 15 14 Rate Blood Pressure 113/69 113/69 O2 Sat by Pulse 94 96 Oximetry 03/15/19 03/15/19 03/15/19 04:15 04:30 04:45 Temperature Pulse Rate 78 81 77 Pulse Rate [ From Monitor] Respiratory 14 14 15 Rate Blood Pressure 109/62 116/68 112/67 O2 Sat by Pulse 98 89 Oximetry 03/15/19 03/15/19 03/15/19 05:00 05:15 05:30 Temperature Pulse Rate 75 82 75 Pulse Rate [ From Monitor] Respiratory 15 16 12 Rate Blood Pressure 119/72 112/66 114/68 O2 Sat by Pulse 93 94 Oximetry 03/15/19 03/15/19 03/15/19 05:45 06:00 06:15 Temperature Pulse Rate 75 71 73 Pulse Rate [ From Monitor] Respiratory 11 L 14 16 Rate Blood Pressure 114/68 113/68 114/71 O2 Sat by Pulse 95 96 96 Oximetry 03/15/19 03/15/19 03/15/19 06:30 06:45 07:00 Temperature Pulse Rate 73 69 73 Pulse Rate [ From Monitor] Respiratory 15 13 15 Rate Blood Pressure 109/71 111/70 107/74 O2 Sat by Pulse 95 Oximetry 03/15/19 03/15/19 03/15/19 07:15 07:30 07:42 Temperature Pulse Rate 73 73 81 Pulse Rate [ From Monitor] Respiratory 14 13 Rate Blood Pressure 111/72 113/75 121/79 O2 Sat by Pulse 95 Oximetry 03/15/19 03/15/19 03/15/19 07:45 08:00 08:23 Temperature Pulse Rate 93 H 74 85 Pulse Rate [ From Monitor] Respiratory 22 14 17 Rate Blood Pressure 121/79 114/75 118/78 O2 Sat by Pulse 97 97 96 Oximetry - Labs CBC & Chem 7: 03/15/19 04:50 03/15/19 04:50 Labs: Abnormal lab results 03/14/19 03/14/19 03/14/19 Range/Units 12:05 16:02 20:13 RBC (3.65-5.03) M/mm3 Hgb (11.8-15.2) gm/dl Hct (35.5-45.6) % MCV (84-94) fl MCH (28-32) pg RDW (13.2-15.2) % Plt Count (140-440) K/mm3 Seg Neuts % (Manual) (40.0-70.0) % Lymphocytes % (Manual) (13.4-35.0) % Nucleated RBC % (0.0-0.9) % Seg Neutrophils # Man (1.8-7.7) K/mm3 Lymphocytes # (Manual) (1.2-5.4) K/mm3 PT (12.2-14.9) Sec. INR (0.87-1.13) POC ABG pH (7.35-7.45) POC ABG pO2 (80-105) Sodium (137-145) mmol/L Potassium (3.6-5.0) mmol/L Chloride (98-107) mmol/L BUN (9-20) mg/dL Creatinine (0.8-1.5) mg/dL Glucose (75-100) mg/dL POC Glucose 177 H 140 H 145 H (70-105) Calcium (8.4-10.2) mg/dL Ferritin (13.0-400.0) ng/mL Total Bilirubin (0.1-1.2) mg/dL AST (5-40) units/L ALT (7-56) units/L Total Protein (6.3-8.2) g/dL Albumin (3.9-5) g/dL Vitamin B12 (211-911) pg/mL 03/14/19 03/15/19 03/15/19 Range/Units 23:28 01:00 04:08 RBC (3.65-5.03) M/mm3 Hgb (11.8-15.2) gm/dl Hct (35.5-45.6) % MCV (84-94) fl MCH (28-32) pg RDW (13.2-15.2) % Plt Count (140-440) K/mm3 Seg Neuts % (Manual) (40.0-70.0) % Lymphocytes % (Manual) (13.4-35.0) % Nucleated RBC % (0.0-0.9) % Seg Neutrophils # Man (1.8-7.7) K/mm3 Lymphocytes # (Manual) (1.2-5.4) K/mm3 PT 18.5 H (12.2-14.9) Sec. INR 1.58 H (0.87-1.13) POC ABG pH (7.35-7.45) POC ABG pO2 (80-105) Sodium (137-145) mmol/L Potassium (3.6-5.0) mmol/L Chloride (98-107) mmol/L BUN (9-20) mg/dL Creatinine (0.8-1.5) mg/dL Glucose (75-100) mg/dL POC Glucose 140 H 136 H (70-105) Calcium (8.4-10.2) mg/dL Ferritin (13.0-400.0) ng/mL Total Bilirubin (0.1-1.2) mg/dL AST (5-40) units/L ALT (7-56) units/L Total Protein (6.3-8.2) g/dL Albumin (3.9-5) g/dL Vitamin B12 (211-911) pg/mL 03/15/19 03/15/19 03/15/19 Range/Units 04:45 04:50 04:50 RBC 2.30 L (3.65-5.03) M/mm3 Hgb 7.6 L (11.8-15.2) gm/dl Hct 22.2 L (35.5-45.6) % MCV 97 H (84-94) fl MCH 33 H (28-32) pg RDW 22.5 H (13.2-15.2) % Plt Count 109 L (140-440) K/mm3 Seg Neuts % (Manual) 87.0 H (40.0-70.0) % Lymphocytes % (Manual) 6.0 L (13.4-35.0) % Nucleated RBC % 1.0 H (0.0-0.9) % Seg Neutrophils # Man 8.4 H (1.8-7.7) K/mm3 Lymphocytes # (Manual) 0.6 L (1.2-5.4) K/mm3 PT (12.2-14.9) Sec. INR (0.87-1.13) POC ABG pH 7.574 H (7.35-7.45) POC ABG pO2 123 H (80-105) Sodium (137-145) mmol/L Potassium (3.6-5.0) mmol/L Chloride (98-107) mmol/L BUN (9-20) mg/dL Creatinine (0.8-1.5) mg/dL Glucose (75-100) mg/dL POC Glucose (70-105) Calcium (8.4-10.2) mg/dL Ferritin 4122.0 H (13.0-400.0) ng/mL Total Bilirubin (0.1-1.2) mg/dL AST (5-40) units/L ALT (7-56) units/L Total Protein (6.3-8.2) g/dL Albumin (3.9-5) g/dL Vitamin B12 (211-911) pg/mL 03/15/19 03/15/19 03/15/19 Range/Units 04:50 04:50 08:22 RBC (3.65-5.03) M/mm3 Hgb (11.8-15.2) gm/dl Hct (35.5-45.6) % MCV (84-94) fl MCH (28-32) pg RDW (13.2-15.2) % Plt Count (140-440) K/mm3 Seg Neuts % (Manual) (40.0-70.0) % Lymphocytes % (Manual) (13.4-35.0) % Nucleated RBC % (0.0-0.9) % Seg Neutrophils # Man (1.8-7.7) K/mm3 Lymphocytes # (Manual) (1.2-5.4) K/mm3 PT (12.2-14.9) Sec. INR (0.87-1.13) POC ABG pH (7.35-7.45) POC ABG pO2 (80-105) Sodium 146 H (137-145) mmol/L Potassium 3.5 L (3.6-5.0) mmol/L Chloride 109.7 H (98-107) mmol/L BUN 29 H (9-20) mg/dL Creatinine 1.8 H (0.8-1.5) mg/dL Glucose 134 H (75-100) mg/dL POC Glucose 132 H (70-105) Calcium 6.7 L (8.4-10.2) mg/dL Ferritin (13.0-400.0) ng/mL Total Bilirubin 8.00 H (0.1-1.2) mg/dL AST 204 H (5-40) units/L ALT 272 H (7-56) units/L Total Protein 5.4 L (6.3-8.2) g/dL Albumin 2.6 L (3.9-5) g/dL Vitamin B12 > 2000 H (211-911) pg/mL 03/15/19 Range/Units 11:41 RBC (3.65-5.03) M/mm3 Hgb (11.8-15.2) gm/dl Hct (35.5-45.6) % MCV (84-94) fl MCH (28-32) pg RDW (13.2-15.2) % Plt Count (140-440) K/mm3 Seg Neuts % (Manual) (40.0-70.0) % Lymphocytes % (Manual) (13.4-35.0) % Nucleated RBC % (0.0-0.9) % Seg Neutrophils # Man (1.8-7.7) K/mm3 Lymphocytes # (Manual) (1.2-5.4) K/mm3 PT (12.2-14.9) Sec. INR (0.87-1.13) POC ABG pH (7.35-7.45) POC ABG pO2 (80-105) Sodium (137-145) mmol/L Potassium (3.6-5.0) mmol/L Chloride (98-107) mmol/L BUN (9-20) mg/dL Creatinine (0.8-1.5) mg/dL Glucose (75-100) mg/dL POC Glucose 122 H (70-105) Calcium (8.4-10.2) mg/dL Ferritin (13.0-400.0) ng/mL Total Bilirubin (0.1-1.2) mg/dL AST (5-40) units/L ALT (7-56) units/L Total Protein (6.3-8.2) g/dL Albumin (3.9-5) g/dL Vitamin B12 (211-911) pg/mL
--- NOTE | 2019-03-15 12:29 | Progress Note ---
Assessment and Plan Acute GI bleed due to large esophageal varices, with hemorrhagic shock s/p EGD by GI, Acute hypoxemic respiratory failure on MVS Possible septic shock, temperature spike Severe lactic acidosis History of alcohol abuse disorder Acute renal failure, likley ATN Hypernatremia Alcoholic hepatic cirrhosis - back on full AC support - discussed with nephrology and they will do a UF session to help with pulmonary edema issues - begin TPN nutritional support - resume daytime PSV trials later; if does not decompensate by nighttime will rest on AC and tentatively extubate after SBT in am - complete Vitamin K 10 mg SQ daily X 3 days - continue daily SAT's and SBT's as tolerated - PPI now dosed bid - continue to use fentanyl re: ? pain component to tachyarrythmia - target RASS 0 to -1 - continue prn metoprolol for pulse >/= 130/min - continue HD/UF per nephrology prescription and for volume control - Continue with supportive blood transfusions to keep serum Hb > 7.0 - prn vasopressor support to keep MAP> 60-65 - Monitor hemodynamics closely - VAP bundle addressed - continue to wean FiO2 for sats > 90% at this point (Anemia improved) - Transfuse to keep HgB > 7g/dL, Platelets >/= 50K - continue hoffman catheter re: ADRIANNE - Hypotonic solutions to treat hypernatremia - continue CIWA protocol - PPI, therapeutic dosing, change continuous infusion to BID dosing once ok with G.I. team - continue Strict NPO for now (no NGT or OGT placement to avoid dislodging the bands) - begin daily SAT and SBT assessment as tolerated - continue to avoid nephrotoxins, adjust all medications for GFR and CRCL - SCDs for VTE prophylaxis - continue accuchecks q4 with hypoglycemia protocol; target BG of 140-180 mg/dl acutely - continue to monitor for TRALI - continue other care per attending / other consultants ... re-evaluate in am & prn ..... care plan discussed with his mum at bedside CONDITION: CRITIAL PROGNOSIS: GUARDED CODE STATUS: FULL CODE Discussed extensively with RT/RN and care team in ICU IDT rounds The high probability of a clinically significant, sudden or life threatening deterioration of the respiratory, gastroenterology/hepatology, renal systems required my full and direct attention, intervention and personal management. The aggregate critical care time was 35 minutes. This time is in addition to time spent performing reported procedures but includes the following: [x] Data Review and interpretation [x] Patient assessment and monitoring of vital signs [x] Documentation [x] Medication orders and management Subjective Date of service: 03/15/19 Principal diagnosis: Ac. GI bleed; hemorrhagic shock; Ac. hypoxemic resp failure; ADRIANNE likley ATN Interval history: Patient is seen today for: Ac. GI bleed (esophageal varices); hemorrhagic shock; Ac. hypoxemic resp failure; Possible septic shock; Severe lactic acidosis; H/O alcohol abuse disorder; Acute renal failure, likely ATN; Hypernatremia Seen and examined at bedside; 24hour events reviewed; nursing and respiratory care staff consulted; no adverse overnight events reported to me; resting in bed; weaning but tolerating SBT tenuously and finally decompensated so placed back on full support; denies any uncontrolled pain; mother is visiting; No gross bleeding Objective Vital Signs - 12hr 03/15/19 03/15/19 03/15/19 00:30 00:41 00:45 Temperature Pulse Rate 76 91 H 86 Pulse Rate [ From Monitor] Respiratory 14 16 Rate Blood Pressure 119/80 119/80 129/86 O2 Sat by Pulse 97 97 98 Oximetry 03/15/19 03/15/19 03/15/19 01:00 01:15 01:30 Temperature Pulse Rate 102 H 78 86 Pulse Rate [ From Monitor] Respiratory 26 H 15 13 Rate Blood Pressure 118/76 129/86 122/69 O2 Sat by Pulse 98 97 96 Oximetry 03/15/19 03/15/19 03/15/19 01:45 02:00 02:15 Temperature Pulse Rate 131 H 101 H 145 H Pulse Rate [ From Monitor] Respiratory 31 H 21 27 H Rate Blood Pressure 122/69 134/91 134/91 O2 Sat by Pulse 87 91 95 Oximetry 03/15/19 03/15/19 03/15/19 02:30 02:45 03:00 Temperature Pulse Rate 113 H 99 H 112 H Pulse Rate [ From Monitor] Respiratory 28 H 19 22 Rate Blood Pressure 147/93 132/87 135/91 O2 Sat by Pulse 88 94 Oximetry 03/15/19 03/15/19 03/15/19 03:15 03:30 03:45 Temperature Pulse Rate 90 86 83 Pulse Rate [ From Monitor] Respiratory 15 13 13 Rate Blood Pressure 122/73 115/71 115/71 O2 Sat by Pulse 93 Oximetry 03/15/19 03/15/19 03/15/19 04:00 04:05 04:13 Temperature 98.5 F Pulse Rate 84 78 Pulse Rate [ 89 From Monitor] Respiratory 15 14 Rate Blood Pressure 113/69 113/69 O2 Sat by Pulse 94 96 Oximetry 03/15/19 03/15/19 03/15/19 04:15 04:30 04:45 Temperature Pulse Rate 78 81 77 Pulse Rate [ From Monitor] Respiratory 14 14 15 Rate Blood Pressure 109/62 116/68 112/67 O2 Sat by Pulse 98 89 Oximetry 03/15/19 03/15/19 03/15/19 05:00 05:15 05:30 Temperature Pulse Rate 75 82 75 Pulse Rate [ From Monitor] Respiratory 15 16 12 Rate Blood Pressure 119/72 112/66 114/68 O2 Sat by Pulse 93 94 Oximetry 03/15/19 03/15/19 03/15/19 05:45 06:00 06:15 Temperature Pulse Rate 75 71 73 Pulse Rate [ From Monitor] Respiratory 11 L 14 16 Rate Blood Pressure 114/68 113/68 114/71 O2 Sat by Pulse 95 96 96 Oximetry 03/15/19 03/15/19 03/15/19 06:30 06:45 07:00 Temperature Pulse Rate 73 69 73 Pulse Rate [ From Monitor] Respiratory 15 13 15 Rate Blood Pressure 109/71 111/70 107/74 O2 Sat by Pulse 95 Oximetry 03/15/19 03/15/19 03/15/19 07:15 07:30 07:42 Temperature Pulse Rate 73 73 81 Pulse Rate [ From Monitor] Respiratory 14 13 Rate Blood Pressure 111/72 113/75 121/79 O2 Sat by Pulse 95 Oximetry 03/15/19 03/15/19 03/15/19 07:45 08:00 08:23 Temperature Pulse Rate 93 H 74 85 Pulse Rate [ From Monitor] Respiratory 22 14 17 Rate Blood Pressure 121/79 114/75 118/78 O2 Sat by Pulse 97 97 96 Oximetry 03/15/19 12:00 Temperature Pulse Rate 79 Pulse Rate [ From Monitor] Respiratory Rate Blood Pressure 130/83 O2 Sat by Pulse 100 Oximetry Constitutional: alert, other (young AM, normocephalic with mildly increased resp effort on MVS) Eyes: icteric ENT: oropharynx moist, other (ETT 23-24 cm YARED) Neck: supple, no lymphadenopathy, no JVD Effort: mildly labored Ascultation: Bilateral: diminished breath sounds, rales Percussion: Bilateral: not dull Cardiovascular: regular rate and rhythm, other (Tachcardia, regular, S1,S2, no murmurs) Gastrointestinal: normoactive bowel sounds, soft, non-tender, other (mildly distended) Integumentary: normal Extremities: no cyanosis, no edema, cool, edema Neurologic: normal mental status, non-focal exam (grossly), pupils equal and round, CN II-XII normal, motor strength normal and Psychiatric: mood appropriate, affect normal CBC and BMP: 03/16/19 06:00 03/16/19 06:00 ABG, PT/INR, D-dimer: ABG POC ABG pH 7.574 (7.35-7.45) H 03/15/19 04:45 ABG pH 7.380 pH Units (7.350-7.450) 03/14/19 Unknown ABG pCO2 43.0 mm Hg 03/14/19 Unknown POC ABG pO2 123 (80-105) H 03/15/19 04:45 ABG pO2 102.3 mm Hg (80.0-90.0) H 03/14/19 Unknown POC ABG HCO3 25.1 (22-26 mml/L) 03/15/19 04:45 POC ABG Total CO2 26 (23-27mmol/L) 03/15/19 04:45 POC ABG O2 Sat 99 03/15/19 04:45 ABG O2 Saturation 97.6 % (95.0-99.0) 03/14/19 Unknown PT/INR, D-dimer PT 18.5 Sec. (12.2-14.9) H 03/15/19 01:00 INR 1.58 (0.87-1.13) H 03/15/19 01:00 1494.02 ng/mlDDU (0-234) H 03/09/19 13:50 Abnormal lab findings: Abnormal Labs 03/08/19 03/08/19 03/08/19 09:34 12:57 12:59 WBC RBC 3.14 L Hgb 11.3 L Hct 33.3 L MCV 106 H MCH 36 H MCHC RDW 18.5 H Plt Count 61 L Lymph # Seg Neutrophils % Seg Neuts % (Manual) Lymphocytes % (Manual) 50.0 H Monocytes % (Manual) Eosinophils % (Manual) Basophils % (Manual) Nucleated RBC % Seg Neutrophils # Man Lymphocytes # (Manual) Monocytes # (Manual) PT 16.9 H INR 1.41 H APTT Fibrinogen D-Dimer POC ABG pH ABG pH POC ABG pCO2 POC ABG pO2 ABG pO2 ABG Hemoglobin Oxyhemoglobin Sodium Potassium Chloride Carbon Dioxide BUN Creatinine Glucose POC Glucose Lactic Acid Calcium Phosphorus Iron TIBC Ferritin Total Bilirubin Direct Bilirubin AST ALT Total Protein Albumin Lipase Vitamin B12 Urine WBC (Auto) Plasma/Serum Alcohol 0.34 H Crossmatch 03/08/19 03/08/19 03/08/19 13:12 13:14 14:21 WBC RBC Hgb Hct MCV MCH MCHC RDW Plt Count Lymph # Seg Neutrophils % Seg Neuts % (Manual) Lymphocytes % (Manual) Monocytes % (Manual) Eosinophils % (Manual) Basophils % (Manual) Nucleated RBC % Seg Neutrophils # Man Lymphocytes # (Manual) Monocytes # (Manual) PT INR APTT Fibrinogen D-Dimer POC ABG pH ABG pH POC ABG pCO2 POC ABG pO2 ABG pO2 ABG Hemoglobin Oxyhemoglobin Sodium Potassium Chloride 89.4 L Carbon Dioxide 8 L* BUN Creatinine Glucose 74 L POC Glucose Lactic Acid Calcium Phosphorus Iron TIBC Ferritin Total Bilirubin 4.70 H Direct Bilirubin AST 611 H ALT 153 H Total Protein Albumin Lipase Vitamin B12 Urine WBC (Auto) 18.0 H Plasma/Serum Alcohol Crossmatch See Detail 03/08/19 03/08/19 03/08/19 20:51 20:51 22:29 WBC 17.0 H RBC 2.21 L Hgb 8.0 L D Hct 26.8 L D MCV 121 H MCH 36 H MCHC 30 L RDW 20.5 H Plt Count 84 L Lymph # Seg Neutrophils % Seg Neuts % (Manual) 83.0 H Lymphocytes % (Manual) 8.0 L Monocytes % (Manual) 9.0 H Eosinophils % (Manual) Basophils % (Manual) Nucleated RBC % 1.0 H Seg Neutrophils # Man 14.1 H Lymphocytes # (Manual) Monocytes # (Manual) 1.5 H PT INR APTT Fibrinogen D-Dimer POC ABG pH ABG pH POC ABG pCO2 POC ABG pO2 ABG pO2 ABG Hemoglobin Oxyhemoglobin Sodium Potassium 7.0 H* D Chloride 90.7 L Carbon Dioxide 3 L* BUN Creatinine 1.6 H Glucose 60 L POC Glucose 48 L Lactic Acid Calcium 8.0 L Phosphorus Iron TIBC Ferritin Total Bilirubin 5.00 H Direct Bilirubin AST 1815 H ALT 399 H Total Protein Albumin 3.7 L Lipase Vitamin B12 Urine WBC (Auto) Plasma/Serum Alcohol Crossmatch 03/08/19 03/08/19 03/08/19 22:43 23:00 23:10 WBC RBC Hgb Hct MCV MCH MCHC RDW Plt Count Lymph # Seg Neutrophils % Seg Neuts % (Manual) Lymphocytes % (Manual) Monocytes % (Manual) Eosinophils % (Manual) Basophils % (Manual) Nucleated RBC % Seg Neutrophils # Man Lymphocytes # (Manual) Monocytes # (Manual) PT INR APTT Fibrinogen D-Dimer POC ABG pH ABG pH POC ABG pCO2 POC ABG pO2 ABG pO2 ABG Hemoglobin Oxyhemoglobin Sodium Potassium 7.9 H* Chloride 86.4 L Carbon Dioxide 9 L* BUN Creatinine 1.7 H Glucose 314 H POC Glucose Lactic Acid 23.50 H* Calcium Phosphorus 8.60 H Iron TIBC Ferritin Total Bilirubin Direct Bilirubin AST ALT Total Protein Albumin Lipase Vitamin B12 Urine WBC (Auto) Plasma/Serum Alcohol Crossmatch 03/08/19 03/09/19 03/09/19 23:50 00:00 00:31 WBC RBC Hgb Hct MCV MCH MCHC RDW Plt Count Lymph # Seg Neutrophils % Seg Neuts % (Manual) Lymphocytes % (Manual) Monocytes % (Manual) Eosinophils % (Manual) Basophils % (Manual) Nucleated RBC % Seg Neutrophils # Man Lymphocytes # (Manual) Monocytes # (Manual) PT INR APTT Fibrinogen D-Dimer POC ABG pH 7.120 L ABG pH POC ABG pCO2 30.7 L POC ABG pO2 130 H ABG pO2 ABG Hemoglobin Oxyhemoglobin Sodium Potassium 6.3 H* D Chloride 93.7 L Carbon Dioxide 11 L BUN 21 H Creatinine 1.7 H Glucose 219 H POC Glucose 206 H Lactic Acid Calcium 8.2 L Phosphorus Iron TIBC Ferritin Total Bilirubin Direct Bilirubin AST ALT Total Protein Albumin Lipase Vitamin B12 Urine WBC (Auto) Plasma/Serum Alcohol Crossmatch 03/09/19 03/09/19 03/09/19 00:47 01:45 02:02 WBC RBC 1.72 L Hgb 6.3 L Hct 20.0 L D MCV 117 H MCH 37 H MCHC 31 L RDW 20.9 H Plt Count 62 L Lymph # Seg Neutrophils % Seg Neuts % (Manual) 93.0 H Lymphocytes % (Manual) 6.0 L Monocytes % (Manual) Eosinophils % (Manual) Basophils % (Manual) Nucleated RBC % 1.0 H Seg Neutrophils # Man 9.6 H Lymphocytes # (Manual) 0.6 L Monocytes # (Manual) PT INR APTT Fibrinogen D-Dimer POC ABG pH ABG pH POC ABG pCO2 31.8 L POC ABG pO2 142 H ABG pO2 ABG Hemoglobin Oxyhemoglobin Sodium Potassium Chloride Carbon Dioxide BUN Creatinine Glucose POC Glucose 182 H Lactic Acid Calcium Phosphorus Iron TIBC Ferritin Total Bilirubin Direct Bilirubin AST ALT Total Protein Albumin Lipase Vitamin B12 Urine WBC (Auto) Plasma/Serum Alcohol Crossmatch 03/09/19 03/09/19 03/09/19 02:10 02:30 03:00 WBC RBC Hgb Hct MCV MCH MCHC RDW Plt Count Lymph # Seg Neutrophils % Seg Neuts % (Manual) Lymphocytes % (Manual) Monocytes % (Manual) Eosinophils % (Manual) Basophils % (Manual) Nucleated RBC % Seg Neutrophils # Man Lymphocytes # (Manual) Monocytes # (Manual) PT INR APTT Fibrinogen D-Dimer POC ABG pH ABG pH POC ABG pCO2 POC ABG pO2 ABG pO2 ABG Hemoglobin Oxyhemoglobin Sodium 150 H D Potassium Chloride Carbon Dioxide BUN Creatinine Glucose 177 H POC Glucose 178 H Lactic Acid Calcium 10.5 H D Phosphorus Iron 208 H TIBC 185 L Ferritin Total Bilirubin Direct Bilirubin AST ALT Total Protein Albumin Lipase Vitamin B12 Urine WBC (Auto) Plasma/Serum Alcohol Crossmatch 03/09/19 03/09/19 03/09/19 04:16 05:46 07:47 WBC RBC 1.06 L Hgb 3.9 L* Hct 11.7 L* D MCV 111 H MCH 37 H MCHC RDW 20.0 H Plt Count 52 L Lymph # Seg Neutrophils % 79.1 H Seg Neuts % (Manual) Lymphocytes % (Manual) Monocytes % (Manual) Eosinophils % (Manual) Basophils % (Manual) Nucleated RBC % Seg Neutrophils # Man Lymphocytes # (Manual) Monocytes # (Manual) PT INR APTT Fibrinogen D-Dimer POC ABG pH ABG pH POC ABG pCO2 POC ABG pO2 ABG pO2 ABG Hemoglobin Oxyhemoglobin Sodium Potassium Chloride Carbon Dioxide BUN Creatinine Glucose POC Glucose 201 H 176 H Lactic Acid Calcium Phosphorus Iron TIBC Ferritin Total Bilirubin Direct Bilirubin AST ALT Total Protein Albumin Lipase Vitamin B12 Urine WBC (Auto) Plasma/Serum Alcohol Crossmatch 03/09/19 03/09/19 03/09/19 07:48 07:48 13:50 WBC RBC 2.69 L Hgb 8.9 L D Hct 25.8 L D MCV 96 H MCH 33 H MCHC 35 H RDW 17.1 H Plt Count 49 L Lymph # Seg Neutrophils % 79.1 H Seg Neuts % (Manual) Lymphocytes % (Manual) Monocytes % (Manual) Eosinophils % (Manual) Basophils % (Manual) Nucleated RBC % Seg Neutrophils # Man Lymphocytes # (Manual) Monocytes # (Manual) PT INR APTT Fibrinogen D-Dimer POC ABG pH ABG pH POC ABG pCO2 POC ABG pO2 ABG pO2 ABG Hemoglobin Oxyhemoglobin Sodium 154 H Potassium Chloride 111.2 H Carbon Dioxide 18 L BUN 22 H Creatinine 2.1 H Glucose 131 H POC Glucose Lactic Acid 19.10 H* Calcium Phosphorus Iron TIBC Ferritin Total Bilirubin Direct Bilirubin AST ALT Total Protein Albumin Lipase Vitamin B12 Urine WBC (Auto) Plasma/Serum Alcohol Crossmatch 03/09/19 03/09/19 03/09/19 13:50 14:20 16:08 WBC RBC Hgb Hct MCV MCH MCHC RDW Plt Count Lymph # Seg Neutrophils % Seg Neuts % (Manual) Lymphocytes % (Manual) Monocytes % (Manual) Eosinophils % (Manual) Basophils % (Manual) Nucleated RBC % Seg Neutrophils # Man Lymphocytes # (Manual) Monocytes # (Manual) PT 28.2 H INR 2.70 H APTT 41.8 H Fibrinogen 81 L* D-Dimer 1494.02 H POC ABG pH ABG pH POC ABG pCO2 POC ABG pO2 ABG pO2 ABG Hemoglobin Oxyhemoglobin Sodium Potassium Chloride Carbon Dioxide BUN Creatinine Glucose POC Glucose 188 H 235 H Lactic Acid Calcium Phosphorus Iron TIBC Ferritin Total Bilirubin Direct Bilirubin AST ALT Total Protein Albumin Lipase Vitamin B12 Urine WBC (Auto) Plasma/Serum Alcohol Crossmatch 03/09/19 03/09/19 03/09/19 17:55 23:26 Unknown WBC RBC Hgb Hct MCV MCH MCHC RDW Plt Count Lymph # Seg Neutrophils % Seg Neuts % (Manual) Lymphocytes % (Manual) Monocytes % (Manual) Eosinophils % (Manual) Basophils % (Manual) Nucleated RBC % Seg Neutrophils # Man Lymphocytes # (Manual) Monocytes # (Manual) PT INR APTT Fibrinogen D-Dimer POC ABG pH ABG pH POC ABG pCO2 POC ABG pO2 ABG pO2 ABG Hemoglobin Oxyhemoglobin Sodium Potassium Chloride Carbon Dioxide BUN Creatinine Glucose POC Glucose 233 H 236 H Lactic Acid Calcium Phosphorus Iron TIBC Ferritin Total Bilirubin Direct Bilirubin AST ALT Total Protein Albumin Lipase 385 H Vitamin B12 Urine WBC (Auto) Plasma/Serum Alcohol Crossmatch 03/10/19 03/10/19 03/10/19 00:04 03:36 03:36 WBC RBC 2.11 L Hgb 7.8 L 7.1 L Hct 22.0 L 19.7 L* MCV MCH 34 H MCHC 36 H RDW 17.9 H Plt Count 45 L Lymph # Seg Neutrophils % 73.6 H Seg Neuts % (Manual) 90.0 H Lymphocytes % (Manual) 3.0 L Monocytes % (Manual) Eosinophils % (Manual) Basophils % (Manual) Nucleated RBC % 3.0 H Seg Neutrophils # Man Lymphocytes # (Manual) 0.2 L Monocytes # (Manual) PT INR APTT Fibrinogen D-Dimer POC ABG pH ABG pH POC ABG pCO2 POC ABG pO2 ABG pO2 ABG Hemoglobin Oxyhemoglobin Sodium 150 H Potassium 3.3 L D Chloride 113.2 H Carbon Dioxide BUN 30 H Creatinine 3.4 H D Glucose 196 H POC Glucose Lactic Acid Calcium 8.2 L Phosphorus Iron TIBC Ferritin Total Bilirubin Direct Bilirubin AST ALT Total Protein Albumin Lipase Vitamin B12 Urine WBC (Auto) Plasma/Serum Alcohol Crossmatch 03/10/19 03/10/19 03/10/19 03:36 03:53 03:56 WBC RBC Hgb Hct MCV MCH MCHC RDW Plt Count Lymph # Seg Neutrophils % Seg Neuts % (Manual) Lymphocytes % (Manual) Monocytes % (Manual) Eosinophils % (Manual) Basophils % (Manual) Nucleated RBC % Seg Neutrophils # Man Lymphocytes # (Manual) Monocytes # (Manual) PT INR APTT Fibrinogen D-Dimer POC ABG pH ABG pH POC ABG pCO2 POC ABG pO2 ABG pO2 94.7 H ABG Hemoglobin 6.5 L Oxyhemoglobin Sodium Potassium Chloride Carbon Dioxide BUN Creatinine Glucose POC Glucose 212 H Lactic Acid Calcium Phosphorus Iron TIBC Ferritin Total Bilirubin 4.90 H Direct Bilirubin 3.9 H AST 6235 H ALT 924 H Total Protein 4.2 L D Albumin 2.5 L Lipase Vitamin B12 Urine WBC (Auto) Plasma/Serum Alcohol Crossmatch 03/10/19 03/10/19 03/10/19 05:58 08:12 09:26 WBC RBC Hgb Hct MCV MCH MCHC RDW Plt Count Lymph # Seg Neutrophils % Seg Neuts % (Manual) Lymphocytes % (Manual) Monocytes % (Manual) Eosinophils % (Manual) Basophils % (Manual) Nucleated RBC % Seg Neutrophils # Man Lymphocytes # (Manual) Monocytes # (Manual) PT 29.3 H INR 2.83 H APTT Fibrinogen D-Dimer POC ABG pH ABG pH POC ABG pCO2 POC ABG pO2 ABG pO2 ABG Hemoglobin Oxyhemoglobin Sodium Potassium Chloride Carbon Dioxide BUN Creatinine Glucose POC Glucose 171 H 197 H Lactic Acid Calcium Phosphorus Iron TIBC Ferritin Total Bilirubin Direct Bilirubin AST ALT Total Protein Albumin Lipase Vitamin B12 Urine WBC (Auto) Plasma/Serum Alcohol Crossmatch 03/10/19 03/10/19 03/10/19 11:40 14:04 16:18 WBC RBC Hgb 6.7 L Hct 18.8 L* MCV MCH MCHC RDW Plt Count Lymph # Seg Neutrophils % Seg Neuts % (Manual) Lymphocytes % (Manual) Monocytes % (Manual) Eosinophils % (Manual) Basophils % (Manual) Nucleated RBC % Seg Neutrophils # Man Lymphocytes # (Manual) Monocytes # (Manual) PT INR APTT Fibrinogen D-Dimer POC ABG pH ABG pH POC ABG pCO2 POC ABG pO2 ABG pO2 ABG Hemoglobin Oxyhemoglobin Sodium Potassium Chloride Carbon Dioxide BUN Creatinine Glucose POC Glucose 178 H 192 H Lactic Acid Calcium Phosphorus Iron TIBC Ferritin Total Bilirubin Direct Bilirubin AST ALT Total Protein Albumin Lipase Vitamin B12 Urine WBC (Auto) Plasma/Serum Alcohol Crossmatch 03/10/19 03/10/19 03/11/19 21:42 22:00 00:05 WBC RBC Hgb 7.4 L Hct 21.1 L MCV MCH MCHC RDW Plt Count Lymph # Seg Neutrophils % Seg Neuts % (Manual) Lymphocytes % (Manual) Monocytes % (Manual) Eosinophils % (Manual) Basophils % (Manual) Nucleated RBC % Seg Neutrophils # Man Lymphocytes # (Manual) Monocytes # (Manual) PT INR APTT Fibrinogen D-Dimer POC ABG pH ABG pH POC ABG pCO2 POC ABG pO2 ABG pO2 ABG Hemoglobin Oxyhemoglobin Sodium Potassium Chloride Carbon Dioxide BUN Creatinine Glucose POC Glucose 174 H 136 H Lactic Acid Calcium Phosphorus Iron TIBC Ferritin Total Bilirubin Direct Bilirubin AST ALT Total Protein Albumin Lipase Vitamin B12 Urine WBC (Auto) Plasma/Serum Alcohol Crossmatch 03/11/19 03/11/19 03/11/19 04:04 04:15 04:15 WBC RBC 2.28 L Hgb 7.4 L Hct 20.8 L MCV MCH 33 H MCHC 36 H RDW 18.4 H Plt Count 38 L Lymph # 1.1 L Seg Neutrophils % 72.7 H Seg Neuts % (Manual) Lymphocytes % (Manual) Monocytes % (Manual) Eosinophils % (Manual) Basophils % (Manual) Nucleated RBC % Seg Neutrophils # Man Lymphocytes # (Manual) Monocytes # (Manual) PT INR APTT Fibrinogen D-Dimer POC ABG pH ABG pH POC ABG pCO2 POC ABG pO2 ABG pO2 ABG Hemoglobin Oxyhemoglobin Sodium 147 H Potassium 3.2 L Chloride 109.2 H Carbon Dioxide BUN 34 H Creatinine 5.0 H Glucose 132 H POC Glucose 133 H Lactic Acid Calcium 7.5 L Phosphorus Iron TIBC Ferritin Total Bilirubin 7.40 H Direct Bilirubin AST 3748 H ALT 864 H Total Protein 4.7 L Albumin 2.5 L Lipase Vitamin B12 Urine WBC (Auto) Plasma/Serum Alcohol Crossmatch 03/11/19 03/11/19 03/11/19 04:25 08:28 12:03 WBC RBC Hgb Hct MCV MCH MCHC RDW Plt Count Lymph # Seg Neutrophils % Seg Neuts % (Manual) Lymphocytes % (Manual) Monocytes % (Manual) Eosinophils % (Manual) Basophils % (Manual) Nucleated RBC % Seg Neutrophils # Man Lymphocytes # (Manual) Monocytes # (Manual) PT INR APTT Fibrinogen D-Dimer POC ABG pH ABG pH 7.467 H POC ABG pCO2 POC ABG pO2 ABG pO2 69.6 L ABG Hemoglobin 7.4 L Oxyhemoglobin 94.3 L Sodium Potassium Chloride Carbon Dioxide BUN Creatinine Glucose POC Glucose 128 H 122 H Lactic Acid Calcium Phosphorus Iron TIBC Ferritin Total Bilirubin Direct Bilirubin AST ALT Total Protein Albumin Lipase Vitamin B12 Urine WBC (Auto) Plasma/Serum Alcohol Crossmatch 03/11/19 03/11/19 03/11/19 17:01 20:09 23:58 WBC RBC Hgb Hct MCV MCH MCHC RDW Plt Count Lymph # Seg Neutrophils % Seg Neuts % (Manual) Lymphocytes % (Manual) Monocytes % (Manual) Eosinophils % (Manual) Basophils % (Manual) Nucleated RBC % Seg Neutrophils # Man Lymphocytes # (Manual) Monocytes # (Manual) PT INR APTT Fibrinogen D-Dimer POC ABG pH ABG pH POC ABG pCO2 POC ABG pO2 ABG pO2 ABG Hemoglobin Oxyhemoglobin Sodium Potassium Chloride Carbon Dioxide BUN Creatinine Glucose POC Glucose 135 H 155 H 119 H Lactic Acid Calcium Phosphorus Iron TIBC Ferritin Total Bilirubin Direct Bilirubin AST ALT Total Protein Albumin Lipase Vitamin B12 Urine WBC (Auto) Plasma/Serum Alcohol Crossmatch 03/12/19 03/12/19 03/12/19 03:00 04:10 05:24 WBC RBC Hgb Hct MCV MCH MCHC RDW Plt Count Lymph # Seg Neutrophils % Seg Neuts % (Manual) Lymphocytes % (Manual) Monocytes % (Manual) Eosinophils % (Manual) Basophils % (Manual) Nucleated RBC % Seg Neutrophils # Man Lymphocytes # (Manual) Monocytes # (Manual) PT INR APTT Fibrinogen D-Dimer POC ABG pH ABG pH 7.467 H POC ABG pCO2 POC ABG pO2 ABG pO2 77.8 L ABG Hemoglobin 7.3 L Oxyhemoglobin 94.2 L Sodium Potassium Chloride Carbon Dioxide BUN Creatinine Glucose POC Glucose 137 H 137 H Lactic Acid Calcium Phosphorus Iron TIBC Ferritin Total Bilirubin Direct Bilirubin AST ALT Total Protein Albumin Lipase Vitamin B12 Urine WBC (Auto) Plasma/Serum Alcohol Crossmatch 03/12/19 03/12/19 03/12/19 07:40 07:40 08:40 WBC RBC 2.24 L Hgb 7.4 L Hct 20.9 L MCV MCH 33 H MCHC 35 H RDW 19.0 H Plt Count 45 L Lymph # Seg Neutrophils % Seg Neuts % (Manual) 76.0 H Lymphocytes % (Manual) Monocytes % (Manual) Eosinophils % (Manual) Basophils % (Manual) Nucleated RBC % 11.0 H Seg Neutrophils # Man Lymphocytes # (Manual) 1.1 L Monocytes # (Manual) PT 22.4 H INR 2.02 H APTT 45.4 H Fibrinogen D-Dimer POC ABG pH ABG pH POC ABG pCO2 POC ABG pO2 ABG pO2 ABG Hemoglobin Oxyhemoglobin Sodium Potassium Chloride Carbon Dioxide BUN Creatinine Glucose POC Glucose 132 H Lactic Acid Calcium Phosphorus Iron TIBC Ferritin Total Bilirubin Direct Bilirubin AST ALT Total Protein Albumin Lipase Vitamin B12 Urine WBC (Auto) Plasma/Serum Alcohol Crossmatch 03/12/19 03/12/19 03/12/19 12:00 16:51 Unknown WBC RBC Hgb Hct MCV MCH MCHC RDW Plt Count Lymph # Seg Neutrophils % Seg Neuts % (Manual) Lymphocytes % (Manual) Monocytes % (Manual) Eosinophils % (Manual) Basophils % (Manual) Nucleated RBC % Seg Neutrophils # Man Lymphocytes # (Manual) Monocytes # (Manual) PT INR APTT Fibrinogen D-Dimer POC ABG pH ABG pH POC ABG pCO2 POC ABG pO2 ABG pO2 ABG Hemoglobin Oxyhemoglobin Sodium Potassium Chloride Carbon Dioxide BUN 26 H Creatinine 4.1 H Glucose 128 H POC Glucose 160 H 122 H Lactic Acid Calcium 7.0 L Phosphorus Iron TIBC Ferritin Total Bilirubin Direct Bilirubin AST ALT Total Protein Albumin Lipase Vitamin B12 Urine WBC (Auto) Plasma/Serum Alcohol Crossmatch 03/12/19 03/13/19 03/13/19 Unknown 03:45 04:11 WBC 4.2 L RBC 2.09 L Hgb 6.8 L Hct 19.6 L* MCV MCH 33 H MCHC 35 H RDW 20.2 H Plt Count 44 L Lymph # Seg Neutrophils % Seg Neuts % (Manual) Lymphocytes % (Manual) 7.0 L Monocytes % (Manual) 32.0 H Eosinophils % (Manual) 5.0 H Basophils % (Manual) 2.0 H Nucleated RBC % 12.0 H Seg Neutrophils # Man 0.0 L Lymphocytes # (Manual) 0.0 L Monocytes # (Manual) PT INR APTT Fibrinogen D-Dimer POC ABG pH ABG pH POC ABG pCO2 POC ABG pO2 ABG pO2 62.5 L ABG Hemoglobin 7.6 L Oxyhemoglobin 92.3 L Sodium Potassium Chloride Carbon Dioxide BUN Creatinine Glucose POC Glucose Lactic Acid Calcium Phosphorus Iron TIBC Ferritin Total Bilirubin 8.90 H Direct Bilirubin 7.4 H AST 2116 H ALT 767 H Total Protein 5.1 L Albumin 2.3 L Lipase Vitamin B12 Urine WBC (Auto) Plasma/Serum Alcohol Crossmatch 03/13/19 03/13/19 03/13/19 04:11 08:04 12:04 WBC RBC Hgb 7.0 L Hct 20.0 L MCV MCH MCHC RDW Plt Count Lymph # Seg Neutrophils % Seg Neuts % (Manual) Lymphocytes % (Manual) Monocytes % (Manual) Eosinophils % (Manual) Basophils % (Manual) Nucleated RBC % Seg Neutrophils # Man Lymphocytes # (Manual) Monocytes # (Manual) PT INR APTT Fibrinogen D-Dimer POC ABG pH ABG pH POC ABG pCO2 POC ABG pO2 ABG pO2 ABG Hemoglobin Oxyhemoglobin Sodium Potassium 3.0 L Chloride Carbon Dioxide BUN 27 H Creatinine 3.7 H Glucose POC Glucose 114 H Lactic Acid Calcium 6.3 L Phosphorus Iron TIBC Ferritin Total Bilirubin Direct Bilirubin AST ALT Total Protein Albumin Lipase Vitamin B12 Urine WBC (Auto) Plasma/Serum Alcohol Crossmatch 03/13/19 03/13/19 03/14/19 17:05 21:23 00:00 WBC RBC Hgb Hct MCV MCH MCHC RDW Plt Count Lymph # Seg Neutrophils % Seg Neuts % (Manual) Lymphocytes % (Manual) Monocytes % (Manual) Eosinophils % (Manual) Basophils % (Manual) Nucleated RBC % Seg Neutrophils # Man Lymphocytes # (Manual) Monocytes # (Manual) PT INR APTT Fibrinogen D-Dimer POC ABG pH ABG pH POC ABG pCO2 POC ABG pO2 ABG pO2 ABG Hemoglobin Oxyhemoglobin Sodium Potassium Chloride Carbon Dioxide BUN Creatinine Glucose POC Glucose 111 H 145 H 173 H Lactic Acid Calcium Phosphorus Iron TIBC Ferritin Total Bilirubin Direct Bilirubin AST ALT Total Protein Albumin Lipase Vitamin B12 Urine WBC (Auto) Plasma/Serum Alcohol Crossmatch 03/14/19 03/14/19 03/14/19 04:10 05:25 05:25 WBC 4.2 L RBC 2.20 L Hgb 7.3 L Hct 21.0 L MCV 96 H MCH 33 H MCHC 35 H RDW 20.1 H Plt Count 65 L Lymph # Seg Neutrophils % Seg Neuts % (Manual) Lymphocytes % (Manual) 6.0 L Monocytes % (Manual) 18 H Eosinophils % (Manual) Basophils % (Manual) Nucleated RBC % Seg Neutrophils # Man Lymphocytes # (Manual) 0.3 L Monocytes # (Manual) PT INR APTT Fibrinogen D-Dimer POC ABG pH ABG pH POC ABG pCO2 POC ABG pO2 ABG pO2 ABG Hemoglobin Oxyhemoglobin Sodium Potassium Chloride 108.2 H Carbon Dioxide BUN 28 H Creatinine 2.4 H Glucose 179 H POC Glucose 185 H Lactic Acid Calcium 6.5 L Phosphorus Iron TIBC Ferritin Total Bilirubin 9.00 H Direct Bilirubin AST 321 H ALT 341 H Total Protein 5.2 L Albumin 2.2 L Lipase Vitamin B12 Urine WBC (Auto) Plasma/Serum Alcohol Crossmatch 03/14/19 03/14/19 03/14/19 07:34 12:05 16:02 WBC RBC Hgb Hct MCV MCH MCHC RDW Plt Count Lymph # Seg Neutrophils % Seg Neuts % (Manual) Lymphocytes % (Manual) Monocytes % (Manual) Eosinophils % (Manual) Basophils % (Manual) Nucleated RBC % Seg Neutrophils # Man Lymphocytes # (Manual) Monocytes # (Manual) PT INR APTT Fibrinogen D-Dimer POC ABG pH ABG pH POC ABG pCO2 POC ABG pO2 ABG pO2 ABG Hemoglobin Oxyhemoglobin Sodium Potassium Chloride Carbon Dioxide BUN Creatinine Glucose POC Glucose 190 H 177 H 140 H Lactic Acid Calcium Phosphorus Iron TIBC Ferritin Total Bilirubin Direct Bilirubin AST ALT Total Protein Albumin Lipase Vitamin B12 Urine WBC (Auto) Plasma/Serum Alcohol Crossmatch 03/14/19 03/14/19 03/14/19 20:13 23:28 Unknown WBC RBC Hgb Hct MCV MCH MCHC RDW Plt Count Lymph # Seg Neutrophils % Seg Neuts % (Manual) Lymphocytes % (Manual) Monocytes % (Manual) Eosinophils % (Manual) Basophils % (Manual) Nucleated RBC % Seg Neutrophils # Man Lymphocytes # (Manual) Monocytes # (Manual) PT INR APTT Fibrinogen D-Dimer POC ABG pH ABG pH POC ABG pCO2 POC ABG pO2 ABG pO2 102.3 H ABG Hemoglobin 9.6 L Oxyhemoglobin 94.9 L Sodium Potassium Chloride Carbon Dioxide BUN Creatinine Glucose POC Glucose 145 H 140 H Lactic Acid Calcium Phosphorus Iron TIBC Ferritin Total Bilirubin Direct Bilirubin AST ALT Total Protein Albumin Lipase Vitamin B12 Urine WBC (Auto) Plasma/Serum Alcohol Crossmatch 03/15/19 03/15/19 03/15/19 01:00 04:08 04:45 WBC RBC Hgb Hct MCV MCH MCHC RDW Plt Count Lymph # Seg Neutrophils % Seg Neuts % (Manual) Lymphocytes % (Manual) Monocytes % (Manual) Eosinophils % (Manual) Basophils % (Manual) Nucleated RBC % Seg Neutrophils # Man Lymphocytes # (Manual) Monocytes # (Manual) PT 18.5 H INR 1.58 H APTT Fibrinogen D-Dimer POC ABG pH 7.574 H ABG pH POC ABG pCO2 POC ABG pO2 123 H ABG pO2 ABG Hemoglobin Oxyhemoglobin Sodium Potassium Chloride Carbon Dioxide BUN Creatinine Glucose POC Glucose 136 H Lactic Acid Calcium Phosphorus Iron TIBC Ferritin Total Bilirubin Direct Bilirubin AST ALT Total Protein Albumin Lipase Vitamin B12 Urine WBC (Auto) Plasma/Serum Alcohol Crossmatch 03/15/19 03/15/19 03/15/19 04:50 04:50 04:50 WBC RBC 2.30 L Hgb 7.6 L Hct 22.2 L MCV 97 H MCH 33 H MCHC RDW 22.5 H Plt Count 109 L Lymph # Seg Neutrophils % Seg Neuts % (Manual) 87.0 H Lymphocytes % (Manual) 6.0 L Monocytes % (Manual) Eosinophils % (Manual) Basophils % (Manual) Nucleated RBC % 1.0 H Seg Neutrophils # Man 8.4 H Lymphocytes # (Manual) 0.6 L Monocytes # (Manual) PT INR APTT Fibrinogen D-Dimer POC ABG pH ABG pH POC ABG pCO2 POC ABG pO2 ABG pO2 ABG Hemoglobin Oxyhemoglobin Sodium Potassium Chloride Carbon Dioxide BUN Creatinine Glucose POC Glucose Lactic Acid Calcium Phosphorus Iron TIBC Ferritin 4122.0 H Total Bilirubin Direct Bilirubin AST ALT Total Protein Albumin Lipase Vitamin B12 > 2000 H Urine WBC (Auto) Plasma/Serum Alcohol Crossmatch 03/15/19 03/15/19 03/15/19 04:50 08:22 11:41 WBC RBC Hgb Hct MCV MCH MCHC RDW Plt Count Lymph # Seg Neutrophils % Seg Neuts % (Manual) Lymphocytes % (Manual) Monocytes % (Manual) Eosinophils % (Manual) Basophils % (Manual) Nucleated RBC % Seg Neutrophils # Man Lymphocytes # (Manual) Monocytes # (Manual) PT INR APTT Fibrinogen D-Dimer POC ABG pH ABG pH POC ABG pCO2 POC ABG pO2 ABG pO2 ABG Hemoglobin Oxyhemoglobin Sodium 146 H Potassium 3.5 L Chloride 109.7 H Carbon Dioxide BUN 29 H Creatinine 1.8 H Glucose 134 H POC Glucose 132 H 122 H Lactic Acid Calcium 6.7 L Phosphorus Iron TIBC Ferritin Total Bilirubin 8.00 H Direct Bilirubin AST 204 H ALT 272 H Total Protein 5.4 L Albumin 2.6 L Lipase Vitamin B12 Urine WBC (Auto) Plasma/Serum Alcohol Crossmatch 03/15/19 12:22 WBC RBC Hgb Hct MCV MCH MCHC RDW Plt Count Lymph # Seg Neutrophils % Seg Neuts % (Manual) Lymphocytes % (Manual) Monocytes % (Manual) Eosinophils % (Manual) Basophils % (Manual) Nucleated RBC % Seg Neutrophils # Man Lymphocytes # (Manual) Monocytes # (Manual) PT INR APTT Fibrinogen D-Dimer POC ABG pH ABG pH POC ABG pCO2 POC ABG pO2 ABG pO2 ABG Hemoglobin Oxyhemoglobin Sodium Potassium Chloride Carbon Dioxide BUN Creatinine Glucose POC Glucose 115 H Lactic Acid Calcium Phosphorus Iron TIBC Ferritin Total Bilirubin Direct Bilirubin AST ALT Total Protein Albumin Lipase Vitamin B12 Urine WBC (Auto) Plasma/Serum Alcohol Crossmatch Chest x-ray: image reviewed (mild interstitial edema pattern) Allied health notes reviewed: nursing
--- NOTE | 2019-03-15 14:57 | Progress Note ---
Assessment and Plan 1. Variceal bleed - s/p banding. No evidence of ongoing GI bleed. 2. Alcoholic hepatitis/cirrhosis - very ill. LFTs much better, spontaneously. INR improved. Renal failure improving. On prednisolone. - continue prednisolone for now 3. Nutrition - needs support. Dobhoff relatively contraindicated at present due to variceal bleed and banding. - discussed with Dr. Goldsmith, and to initiate TPN for now. Subjective Date of service: 03/15/19 Principal diagnosis: Ac. GI bleed; hemorrhagic shock; Ac. hypoxemic resp failure; ADRIANNE likley ATN Interval history: Pt on ventilator on CPAP, but responding appropriately. Wants apple juice. Denies abd discomfort. Mother at bedside. Failed weaning trial of ventilator. Objective - Constitutional Vitals: Vital Signs - 12hr 03/15/19 03/15/19 03/15/19 03:00 03:15 03:30 Temperature Pulse Rate 112 H 90 86 Pulse Rate [ From Monitor] Respiratory 22 15 13 Rate Blood Pressure 135/91 122/73 115/71 O2 Sat by Pulse 94 93 Oximetry 03/15/19 03/15/19 03/15/19 03:45 04:00 04:05 Temperature 98.5 F Pulse Rate 83 84 Pulse Rate [ 89 From Monitor] Respiratory 13 15 14 Rate Blood Pressure 115/71 113/69 O2 Sat by Pulse 94 Oximetry 03/15/19 03/15/19 03/15/19 04:13 04:15 04:30 Temperature Pulse Rate 78 78 81 Pulse Rate [ From Monitor] Respiratory 14 14 Rate Blood Pressure 113/69 109/62 116/68 O2 Sat by Pulse 96 98 Oximetry 03/15/19 03/15/19 03/15/19 04:45 05:00 05:15 Temperature Pulse Rate 77 75 82 Pulse Rate [ From Monitor] Respiratory 15 15 16 Rate Blood Pressure 112/67 119/72 112/66 O2 Sat by Pulse 89 93 Oximetry 03/15/19 03/15/19 03/15/19 05:30 05:45 06:00 Temperature Pulse Rate 75 75 71 Pulse Rate [ From Monitor] Respiratory 12 11 L 14 Rate Blood Pressure 114/68 114/68 113/68 O2 Sat by Pulse 94 95 96 Oximetry 03/15/19 03/15/19 03/15/19 06:15 06:30 06:45 Temperature Pulse Rate 73 73 69 Pulse Rate [ From Monitor] Respiratory 16 15 13 Rate Blood Pressure 114/71 109/71 111/70 O2 Sat by Pulse 96 95 Oximetry 03/15/19 03/15/19 03/15/19 07:00 07:15 07:30 Temperature Pulse Rate 73 73 73 Pulse Rate [ From Monitor] Respiratory 15 14 13 Rate Blood Pressure 107/74 111/72 113/75 O2 Sat by Pulse Oximetry 03/15/19 03/15/19 03/15/19 07:42 07:45 08:00 Temperature 97.8 F Pulse Rate 81 93 H 74 Pulse Rate [ 88 From Monitor] Respiratory 22 15 Rate Blood Pressure 121/79 121/79 114/75 O2 Sat by Pulse 95 97 93 Oximetry 03/15/19 03/15/19 03/15/19 08:15 08:23 08:30 Temperature Pulse Rate 79 85 73 Pulse Rate [ From Monitor] Respiratory 15 17 13 Rate Blood Pressure 118/78 118/78 114/76 O2 Sat by Pulse 96 96 Oximetry 03/15/19 03/15/19 03/15/19 08:45 09:00 09:15 Temperature Pulse Rate 75 72 70 Pulse Rate [ From Monitor] Respiratory 15 11 L 12 Rate Blood Pressure 118/79 118/74 118/78 O2 Sat by Pulse 99 Oximetry 03/15/19 03/15/19 03/15/19 09:30 09:45 10:00 Temperature Pulse Rate 73 101 H 74 Pulse Rate [ From Monitor] Respiratory 13 18 12 Rate Blood Pressure 110/67 120/81 128/84 O2 Sat by Pulse 96 97 96 Oximetry 03/15/19 03/15/19 03/15/19 10:15 10:30 10:45 Temperature Pulse Rate 73 73 78 Pulse Rate [ From Monitor] Respiratory 12 12 13 Rate Blood Pressure 125/81 124/82 132/84 O2 Sat by Pulse 97 98 Oximetry 03/15/19 03/15/19 03/15/19 11:00 11:15 11:31 Temperature Pulse Rate 97 H 134 H 120 H Pulse Rate [ From Monitor] Respiratory 23 25 H 25 H Rate Blood Pressure 131/93 169/103 156/102 O2 Sat by Pulse 96 94 96 Oximetry 03/15/19 03/15/19 03/15/19 11:45 12:00 12:15 Temperature 97.7 F Pulse Rate 83 83 83 Pulse Rate [ 85 From Monitor] Respiratory 15 14 13 Rate Blood Pressure 123/74 130/83 132/82 O2 Sat by Pulse 100 99 Oximetry 03/15/19 12:30 Temperature Pulse Rate 77 Pulse Rate [ From Monitor] Respiratory 13 Rate Blood Pressure 126/81 O2 Sat by Pulse 100 Oximetry General appearance: Present: no acute distress, other (intubated.) - EENT Eyes: PERRL, EOM intact, scleral icterus ENT: hearing intact - Respiratory Respiratory effort: other (on ventilator) - Cardiovascular Rhythm: regular Heart Sounds: Present: S1 & S2 Extremity abnormal: edema (2+) - Gastrointestinal General gastrointestinal: Present: soft, non-tender - Labs CBC & Chem 7: 03/15/19 04:50 03/15/19 04:50 Labs: Abnormal lab results 03/14/19 03/14/19 03/14/19 Range/Units 16:02 20:13 23:28 RBC (3.65-5.03) M/mm3 Hgb (11.8-15.2) gm/dl Hct (35.5-45.6) % MCV (84-94) fl MCH (28-32) pg RDW (13.2-15.2) % Plt Count (140-440) K/mm3 Seg Neuts % (Manual) (40.0-70.0) % Lymphocytes % (Manual) (13.4-35.0) % Nucleated RBC % (0.0-0.9) % Seg Neutrophils # Man (1.8-7.7) K/mm3 Lymphocytes # (Manual) (1.2-5.4) K/mm3 PT (12.2-14.9) Sec. INR (0.87-1.13) POC ABG pH (7.35-7.45) POC ABG pO2 (80-105) Sodium (137-145) mmol/L Potassium (3.6-5.0) mmol/L Chloride (98-107) mmol/L BUN (9-20) mg/dL Creatinine (0.8-1.5) mg/dL Glucose (75-100) mg/dL POC Glucose 140 H 145 H 140 H (70-105) Calcium (8.4-10.2) mg/dL Ferritin (13.0-400.0) ng/mL Total Bilirubin (0.1-1.2) mg/dL AST (5-40) units/L ALT (7-56) units/L Total Protein (6.3-8.2) g/dL Albumin (3.9-5) g/dL Vitamin B12 (211-911) pg/mL 03/15/19 03/15/19 03/15/19 Range/Units 01:00 04:08 04:45 RBC (3.65-5.03) M/mm3 Hgb (11.8-15.2) gm/dl Hct (35.5-45.6) % MCV (84-94) fl MCH (28-32) pg RDW (13.2-15.2) % Plt Count (140-440) K/mm3 Seg Neuts % (Manual) (40.0-70.0) % Lymphocytes % (Manual) (13.4-35.0) % Nucleated RBC % (0.0-0.9) % Seg Neutrophils # Man (1.8-7.7) K/mm3 Lymphocytes # (Manual) (1.2-5.4) K/mm3 PT 18.5 H (12.2-14.9) Sec. INR 1.58 H (0.87-1.13) POC ABG pH 7.574 H (7.35-7.45) POC ABG pO2 123 H (80-105) Sodium (137-145) mmol/L Potassium (3.6-5.0) mmol/L Chloride (98-107) mmol/L BUN (9-20) mg/dL Creatinine (0.8-1.5) mg/dL Glucose (75-100) mg/dL POC Glucose 136 H (70-105) Calcium (8.4-10.2) mg/dL Ferritin (13.0-400.0) ng/mL Total Bilirubin (0.1-1.2) mg/dL AST (5-40) units/L ALT (7-56) units/L Total Protein (6.3-8.2) g/dL Albumin (3.9-5) g/dL Vitamin B12 (211-911) pg/mL 03/15/19 03/15/19 03/15/19 Range/Units 04:50 04:50 04:50 RBC 2.30 L (3.65-5.03) M/mm3 Hgb 7.6 L (11.8-15.2) gm/dl Hct 22.2 L (35.5-45.6) % MCV 97 H (84-94) fl MCH 33 H (28-32) pg RDW 22.5 H (13.2-15.2) % Plt Count 109 L (140-440) K/mm3 Seg Neuts % (Manual) 87.0 H (40.0-70.0) % Lymphocytes % (Manual) 6.0 L (13.4-35.0) % Nucleated RBC % 1.0 H (0.0-0.9) % Seg Neutrophils # Man 8.4 H (1.8-7.7) K/mm3 Lymphocytes # (Manual) 0.6 L (1.2-5.4) K/mm3 PT (12.2-14.9) Sec. INR (0.87-1.13) POC ABG pH (7.35-7.45) POC ABG pO2 (80-105) Sodium (137-145) mmol/L Potassium (3.6-5.0) mmol/L Chloride (98-107) mmol/L BUN (9-20) mg/dL Creatinine (0.8-1.5) mg/dL Glucose (75-100) mg/dL POC Glucose (70-105) Calcium (8.4-10.2) mg/dL Ferritin 4122.0 H (13.0-400.0) ng/mL Total Bilirubin (0.1-1.2) mg/dL AST (5-40) units/L ALT (7-56) units/L Total Protein (6.3-8.2) g/dL Albumin (3.9-5) g/dL Vitamin B12 > 2000 H (211-911) pg/mL 03/15/19 03/15/19 03/15/19 Range/Units 04:50 08:22 11:41 RBC (3.65-5.03) M/mm3 Hgb (11.8-15.2) gm/dl Hct (35.5-45.6) % MCV (84-94) fl MCH (28-32) pg RDW (13.2-15.2) % Plt Count (140-440) K/mm3 Seg Neuts % (Manual) (40.0-70.0) % Lymphocytes % (Manual) (13.4-35.0) % Nucleated RBC % (0.0-0.9) % Seg Neutrophils # Man (1.8-7.7) K/mm3 Lymphocytes # (Manual) (1.2-5.4) K/mm3 PT (12.2-14.9) Sec. INR (0.87-1.13) POC ABG pH (7.35-7.45) POC ABG pO2 (80-105) Sodium 146 H (137-145) mmol/L Potassium 3.5 L (3.6-5.0) mmol/L Chloride 109.7 H (98-107) mmol/L BUN 29 H (9-20) mg/dL Creatinine 1.8 H (0.8-1.5) mg/dL Glucose 134 H (75-100) mg/dL POC Glucose 132 H 122 H (70-105) Calcium 6.7 L (8.4-10.2) mg/dL Ferritin (13.0-400.0) ng/mL Total Bilirubin 8.00 H (0.1-1.2) mg/dL AST 204 H (5-40) units/L ALT 272 H (7-56) units/L Total Protein 5.4 L (6.3-8.2) g/dL Albumin 2.6 L (3.9-5) g/dL Vitamin B12 (211-911) pg/mL 03/15/19 Range/Units 12:22 RBC (3.65-5.03) M/mm3 Hgb (11.8-15.2) gm/dl Hct (35.5-45.6) % MCV (84-94) fl MCH (28-32) pg RDW (13.2-15.2) % Plt Count (140-440) K/mm3 Seg Neuts % (Manual) (40.0-70.0) % Lymphocytes % (Manual) (13.4-35.0) % Nucleated RBC % (0.0-0.9) % Seg Neutrophils # Man (1.8-7.7) K/mm3 Lymphocytes # (Manual) (1.2-5.4) K/mm3 PT (12.2-14.9) Sec. INR (0.87-1.13) POC ABG pH (7.35-7.45) POC ABG pO2 (80-105) Sodium (137-145) mmol/L Potassium (3.6-5.0) mmol/L Chloride (98-107) mmol/L BUN (9-20) mg/dL Creatinine (0.8-1.5) mg/dL Glucose (75-100) mg/dL POC Glucose 115 H (70-105) Calcium (8.4-10.2) mg/dL Ferritin (13.0-400.0) ng/mL Total Bilirubin (0.1-1.2) mg/dL AST (5-40) units/L ALT (7-56) units/L Total Protein (6.3-8.2) g/dL Albumin (3.9-5) g/dL Vitamin B12 (211-911) pg/mL Medications & Allergies - Medications Allergies/Adverse Reactions: Allergies No Known Allergies Allergy (Verified 03/08/19 12:31) Home Medications: Home Medications Medication Instructions Recorded Confirmed Last Taken Type No Known Home Medications [No 03/10/19 03/10/19 Unknown History Reported Home Medications] Active Medications: Generic Name Dose Route Start Last Admin Trade Name Freq PRN Reason Stop Dose Admin Acetaminophen 650 mg 03/09/19 13:00 03/12/19 06:50 Tylenol OR 650 mg Q4H PRN Administration Pain, Mild (1-3) Albuterol 2.5 mg 03/08/19 14:56 Proventil IH Q3HRT PRN Shortness Of Breath Dextrose 50 ml 03/09/19 01:34 D50w (25gm) Syringe IV PRN PRN Hypoglycemia Fentanyl 50 mcg 03/11/19 17:41 03/15/19 03:04 Sublimaze IV 50 mcg Q10MIN PRN Administration ANALGESIA Hydrophilic Ointment 1 applic 03/08/19 22:51 Vaseline Lip Therapy TP Q2HR PRN Dry Lips Norepinephrine 4 mg in 250 mls @ 7.5 mls/hr 03/09/19 04:00 03/09/19 16:15 Levophed Drip 4 Mg/Ns 250 Ml IV 0 mcg/min TITR CHARLIE 0 mls/hr Titration Protocol 2 MCG/MIN Phenylephrine HCl 100 mg/ 100 mls @ 3 mls/hr 03/09/19 08:45 03/12/19 17:00 Sodium Chloride IV 0 mcg/min TITR CHARLIE 0 mls/hr Titration Protocol 50 MCG/MIN Propofol 1,000 mg in 100 mls @ 2.61 mls/hr 03/11/19 02:00 03/15/19 04:39 Diprivan 10 Mg/Ml IV 0 mcg/kg/min TITR CHARLIE 0 mls/hr Titration Protocol 5 MCG/KG/MIN Fentanyl Citrate 2,000 mcg in 100 mls @ 4.35 mls/hr 03/11/19 18:00 03/14/19 14:18 Fentanyl Drip Premix IV 0 mcg/kg/hr TITR CHARLIE 0 mls/hr Titration Protocol 1 MCG/KG/HR Sodium Chloride 100 mls @ 999 mls/hr 03/13/19 13:20 Nacl 0.9% IV JULIO CESAR PRN Hypotension Lorazepam 2 mg 03/08/19 14:57 03/15/19 00:15 Ativan IV 2 mg Q1HR PRN Administration KIKE-Jayro 8-15 Methylprednisolone Sodium Succinate 40 mg 03/13/19 15:00 03/14/19 14:53 Solu-Medrol IV 40 mg Q24H CHARLIE Administration Metoclopramide HCl 5 mg 03/11/19 09:00 Reglan IV Q6H PRN Nausea And Vomiting Metoprolol Tartrate 5 mg 03/11/19 17:41 03/11/19 20:04 Lopressor IV 5 mg Q6HR PRN Administration Tachyarrhythmias Multi-Ingred Cream/Lotion/Oil/Oint 1 applic 03/08/19 22:51 Artificial Tears Ophth Oint OU Q4HR PRN Dry Eye(s) Pantoprazole Sodium 40 mg 03/12/19 22:00 03/15/19 09:52 Protonix IV 40 mg BID CHARLIE Administration Sodium Chloride 10 ml 03/08/19 22:00 03/15/19 09:52 Sodium Chloride Flush Syringe 10 Ml IV 10 ml BID CHARLIE Administration Sodium Chloride 10 ml 03/08/19 14:56 Sodium Chloride Flush Syringe 10 Ml IV PRN PRN LINE FLUSH
[2019-03-15] MEDS: SOLU-Medrol IV SCH (15:50)
[2019-03-15] MEDS ORDERED: NACL 0.9% 100 ML IV PRN (17:08)
[2019-03-15] MEDS ORDERED: NACL 0.9% 1000 ML 2,000 ML ONE (19:42)
[2019-03-16 06:22] LABS: Hematocrit 25.2 % (35.5-45.6); Hemoglobin 8.4 gm/dl (11.8-15.2); Mean Corpuscular HGB Conc 33 % (32-34); Mean Corpuscular Volume 99 fl (84-94); Platelet Count 123 K/mm3 (140-440); Red Blood Count 2.55 M/mm3 (3.65-5.03)
[2019-03-16 06:30] LABS: Red Cell Distribution Width 23.7 % (13.2-15.2)
[2019-03-16 06:38] LABS: ABG Base Excess 0.2 mmol/L (-2.0-3.0); ABG HCO3 24.3 mmol/L (20.0-26.0); ABG Methemoglobin 0.6 % (0.0-1.5); ABG Oxygen Saturation 95.6 % (95.0-99.0); ABG PCO2 36.4 mm Hg; ABG PH 7.442 pH Units (7.350-7.450); ABG PO2 70.7 mm Hg (80.0-90.0)
[2019-03-16 06:44] LABS: Alanine Aminotransferase 268 units/L (7-56); Albumin 2.8 g/dL (3.9-5); BUN/Creatinine Ratio 24; Blood Urea Nitrogen 29 mg/dL (9-20); Calcium 7.2 mg/dL (8.4-10.2); Hemolysis Index 0
--- NOTE | 2019-03-16 07:13 | Hem/Onc Progress Note ---
Assessment and Plan 1. h/o Anemia. Hemoglobin was 3 secondary to gastrointestinal bleed. 2. h/o Thrombocytopenia, likely secondary to consumption and liver disease. 3. h/o Low fibrinogen and elevated PT, PTT, secondary to DIC/consumption. 4. h/o Abnormal liver function test. 5. The patient's blood pressure was low and was on pressors. 6. s/p Intubation. 7. History of cirrhosis. 8. History of alcohol usage and smoking. 9. Esophagogastroduodenoscopy showed varices, status post intervention. 10. The patient got octreotide infusion. 11. s/p cryoprecipitate as fibrinogen level is low. His LFTs are abnormal. Vitamin k may not benefit, we have option of FFPs. There is a mention of chest x-ray for monitoring TRALI. follow labs supportive care for now more awake - still on vent clinically improving - ptl >100 - Patient Problems (1) Thrombocytopenia Current Visit: Yes Status: Acute Subjective Date of service: 03/16/19 Principal diagnosis: anemia Interval history: feeling better - still on vent Objective - Exam Narrative Exam: Pain - pt on vent General appearance intubated Performance status complete dependence Eyes - icterus ENT - no bleeding - INTUBATED LNs cervical not palpable Neck - no LN Respiratory Normal Breath sounds - decreased air entry CVS S1 S2 + Extremities normal temperature General GI Rectal deferred male - deferred Skin warm Musculoskeletal - moves limbs Neurologically awake - Constitutional Vitals: Last Vital Signs Temp 98.3 F 03/16/19 03:03 Pulse 74 03/16/19 06:01 Resp 15 03/16/19 06:01 BP 127/83 03/16/19 06:01 Pulse Ox 94 03/16/19 06:01 - Labs Lab Results: Laboratory Results - last 24 hr 03/15/19 03/15/19 03/15/19 04:50 04:50 08:22 WBC RBC Hgb Hct MCV MCH MCHC RDW Plt Count Add Manual Diff Complete Total Counted 100 Seg Neuts % (Manual) 87.0 H Band Neutrophils % 1.0 Lymphocytes % (Manual) 6.0 L Reactive Lymphs % (Man) 0 Monocytes % (Manual) 4.0 Eosinophils % (Manual) 0 Basophils % (Manual) 0 Metamyelocytes % 2.0 Myelocytes % 0 Promyelocytes % 0 Blast Cells % 0 Nucleated RBC % 1.0 H Seg Neutrophils # Man 8.4 H Band Neutrophils # 0.1 Lymphocytes # (Manual) 0.6 L Abs React Lymphs (Man) 0.0 Monocytes # (Manual) 0.4 Eosinophils # (Manual) 0.0 Basophils # (Manual) 0.0 Metamyelocytes # 0.2 Myelocytes # 0.0 Promyelocytes # 0.0 Blast Cells # 0.0 WBC Morphology Not Reportable Hypersegmented Neuts Not Reportable Hyposegmented Neuts Not Reportable Hypogranular Neuts Not Reportable Smudge Cells Not Reportable Toxic Granulation Not Reportable Toxic Vacuolation Not Reportable Dohle Bodies Not Reportable Pelger-Huet Anomaly Not Reportable Meng Rods Not Reportable Platelet Estimate Consistent w auto Clumped Platelets Not Reportable Plt Clumps, EDTA Not Reportable Large Platelets Not Reportable Giant Platelets Not Reportable Platelet Satelliting Not Reportable Plt Morphology Comment Not Reportable RBC Morphology Not Reportable Dimorphic RBCs Not Reportable Polychromasia Few Hypochromasia Not Reportable Poikilocytosis Not Reportable Anisocytosis Not Reportable Microcytosis Not Reportable Macrocytosis Rare Spherocytes Not Reportable Pappenheimer Bodies Not Reportable Sickle Cells Not Reportable Target Cells 1+ Tear Drop Cells Not Reportable Ovalocytes Few Helmet Cells Not Reportable [place] Bodies Not Reportable [place] Rings Not Reportable [place] Cells Not Reportable Bite Cells Not Reportable Crenated Cell Not Reportable Elliptocytes Not Reportable Acanthocytes (Spur) Not Reportable Rouleaux Not Reportable Hemoglobin C Crystals Not Reportable Schistocytes Rare Malaria parasites Not Reportable Santy Bodies Not Reportable Hem Pathologist Commnt No ABG pH ABG pCO2 ABG pO2 ABG HCO3 ABG O2 Saturation ABG O2 Content ABG Base Excess ABG Hemoglobin ABG Carboxyhemoglobin ABG Methemoglobin Oxyhemoglobin FiO2 Sodium Potassium Chloride Carbon Dioxide Anion Gap BUN Creatinine Estimated GFR BUN/Creatinine Ratio Glucose POC Glucose 132 H Calcium Total Bilirubin AST ALT Alkaline Phosphatase Total Protein Albumin Albumin/Globulin Ratio Vitamin B12 > 2000 H 03/15/19 03/15/19 03/15/19 11:41 12:22 19:55 WBC RBC Hgb Hct MCV MCH MCHC RDW Plt Count Add Manual Diff Total Counted Seg Neuts % (Manual) Band Neutrophils % Lymphocytes % (Manual) Reactive Lymphs % (Man) Monocytes % (Manual) Eosinophils % (Manual) Basophils % (Manual) Metamyelocytes % Myelocytes % Promyelocytes % Blast Cells % Nucleated RBC % Seg Neutrophils # Man Band Neutrophils # Lymphocytes # (Manual) Abs React Lymphs (Man) Monocytes # (Manual) Eosinophils # (Manual) Basophils # (Manual) Metamyelocytes # Myelocytes # Promyelocytes # Blast Cells # WBC Morphology Hypersegmented Neuts Hyposegmented Neuts Hypogranular Neuts Smudge Cells Toxic Granulation Toxic Vacuolation Dohle Bodies Pelger-Huet Anomaly Meng Rods Platelet Estimate Clumped Platelets Plt Clumps, EDTA Large Platelets Giant Platelets Platelet Satelliting Plt Morphology Comment RBC Morphology Dimorphic RBCs Polychromasia Hypochromasia Poikilocytosis Anisocytosis Microcytosis Macrocytosis Spherocytes Pappenheimer Bodies Sickle Cells Target Cells Tear Drop Cells Ovalocytes Helmet Cells [place] Bodies [place] Rings Nancie Cells Bite Cells Crenated Cell Elliptocytes Acanthocytes (Spur) Rouleaux Hemoglobin C Crystals Schistocytes Malaria parasites Santy Bodies Hem Pathologist Commnt ABG pH ABG pCO2 ABG pO2 ABG HCO3 ABG O2 Saturation ABG O2 Content ABG Base Excess ABG Hemoglobin ABG Carboxyhemoglobin ABG Methemoglobin Oxyhemoglobin FiO2 Sodium Potassium Chloride Carbon Dioxide Anion Gap BUN Creatinine Estimated GFR BUN/Creatinine Ratio Glucose POC Glucose 122 H 115 H 107 H Calcium Total Bilirubin AST ALT Alkaline Phosphatase Total Protein Albumin Albumin/Globulin Ratio Vitamin B12 03/15/19 03/16/19 03/16/19 23:13 03:00 06:00 WBC 16.1 H RBC 2.55 L Hgb 8.4 L Hct 25.2 L MCV 99 H MCH 33 H MCHC 33 RDW 23.7 H Plt Count 123 L Add Manual Diff Total Counted Seg Neuts % (Manual) Band Neutrophils % Lymphocytes % (Manual) Reactive Lymphs % (Man) Monocytes % (Manual) Eosinophils % (Manual) Basophils % (Manual) Metamyelocytes % Myelocytes % Promyelocytes % Blast Cells % Nucleated RBC % Seg Neutrophils # Man Band Neutrophils # Lymphocytes # (Manual) Abs React Lymphs (Man) Monocytes # (Manual) Eosinophils # (Manual) Basophils # (Manual) Metamyelocytes # Myelocytes # Promyelocytes # Blast Cells # WBC Morphology Hypersegmented Neuts Hyposegmented Neuts Hypogranular Neuts Smudge Cells Toxic Granulation Toxic Vacuolation Dohle Bodies Pelger-Huet Anomaly Meng Rods Platelet Estimate Clumped Platelets Plt Clumps, EDTA Large Platelets Giant Platelets Platelet Satelliting Plt Morphology Comment RBC Morphology Dimorphic RBCs Polychromasia Hypochromasia Poikilocytosis Anisocytosis Microcytosis Macrocytosis Spherocytes Pappenheimer Bodies Sickle Cells Target Cells Tear Drop Cells Ovalocytes Helmet Cells [place] Bodies [place] Rings Nancie Cells Bite Cells Crenated Cell Elliptocytes Acanthocytes (Spur) Rouleaux Hemoglobin C Crystals Schistocytes Malaria parasites Santy Bodies Hem Pathologist Commnt ABG pH ABG pCO2 ABG pO2 ABG HCO3 ABG O2 Saturation ABG O2 Content ABG Base Excess ABG Hemoglobin ABG Carboxyhemoglobin ABG Methemoglobin Oxyhemoglobin FiO2 Sodium Potassium Chloride Carbon Dioxide Anion Gap BUN Creatinine Estimated GFR BUN/Creatinine Ratio Glucose POC Glucose 133 H 135 H Calcium Total Bilirubin AST ALT Alkaline Phosphatase Total Protein Albumin Albumin/Globulin Ratio Vitamin B12 03/16/19 03/16/19 06:00 06:00 WBC RBC Hgb Hct MCV MCH MCHC RDW Plt Count Add Manual Diff Total Counted Seg Neuts % (Manual) Band Neutrophils % Lymphocytes % (Manual) Reactive Lymphs % (Man) Monocytes % (Manual) Eosinophils % (Manual) Basophils % (Manual) Metamyelocytes % Myelocytes % Promyelocytes % Blast Cells % Nucleated RBC % Seg Neutrophils # Man Band Neutrophils # Lymphocytes # (Manual) Abs React Lymphs (Man) Monocytes # (Manual) Eosinophils # (Manual) Basophils # (Manual) Metamyelocytes # Myelocytes # Promyelocytes # Blast Cells # WBC Morphology Hypersegmented Neuts Hyposegmented Neuts Hypogranular Neuts Smudge Cells Toxic Granulation Toxic Vacuolation Dohle Bodies Pelger-Huet Anomaly Meng Rods Platelet Estimate Clumped Platelets Plt Clumps, EDTA Large Platelets Giant Platelets Platelet Satelliting Plt Morphology Comment RBC Morphology Dimorphic RBCs Polychromasia Hypochromasia Poikilocytosis Anisocytosis Microcytosis Macrocytosis Spherocytes Pappenheimer Bodies Sickle Cells Target Cells Tear Drop Cells Ovalocytes Helmet Cells [place] Bodies [place] Rings [place] Cells Bite Cells Crenated Cell Elliptocytes Acanthocytes (Spur) Rouleaux Hemoglobin C Crystals Schistocytes Malaria parasites Santy Bodies Hem Pathologist Commnt ABG pH 7.442 ABG pCO2 36.4 ABG pO2 70.7 L ABG HCO3 24.3 ABG O2 Saturation 95.6 ABG O2 Content 10.5 ABG Base Excess 0.2 ABG Hemoglobin 7.9 L ABG Carboxyhemoglobin 1.9 ABG Methemoglobin 0.6 Oxyhemoglobin 93.2 L FiO2 40 Sodium 147 H Potassium 3.4 L Chloride 108.7 H Carbon Dioxide 25 Anion Gap 17 BUN 29 H Creatinine 1.2 Estimated GFR > 60 BUN/Creatinine Ratio 24 Glucose 114 H POC Glucose Calcium 7.2 L Total Bilirubin 9.90 H AST 271 H ALT 268 H Alkaline Phosphatase 94 Total Protein 6.1 L Albumin 2.8 L Albumin/Globulin Ratio 0.8 Vitamin B12 Medications & Allergies - Medications Allergies/Adverse Reactions: Allergies No Known Allergies Allergy (Verified 03/08/19 12:31) Home Medications: Home Medications Medication Instructions Recorded Confirmed Last Taken Type No Known Home Medications [No 03/10/19 03/10/19 Unknown History Reported Home Medications] Active Medications: Generic Name Dose Route Start Last Admin Trade Name Garciaq PRN Reason Stop Dose Admin Acetaminophen 650 mg 03/09/19 13:00 03/12/19 06:50 Tylenol NM 650 mg Q4H PRN Administration Pain, Mild (1-3) Albuterol 2.5 mg 03/08/19 14:56 Proventil IH Q3HRT PRN Shortness Of Breath Dextrose 50 ml 03/09/19 01:34 D50w (25gm) Syringe IV PRN PRN Hypoglycemia Fentanyl 50 mcg 03/11/19 17:41 03/15/19 03:04 Sublimaze IV 50 mcg Q10MIN PRN Administration ANALGESIA Hydrophilic Ointment 1 applic 03/08/19 22:51 Vaseline Lip Therapy TP Q2HR PRN Dry Lips Norepinephrine 4 mg in 250 mls @ 7.5 mls/hr 03/09/19 04:00 03/09/19 16:15 Levophed Drip 4 Mg/Ns 250 Ml IV 0 mcg/min TITR CHARLIE 0 mls/hr Titration Protocol 2 MCG/MIN Phenylephrine HCl 100 mg/ 100 mls @ 3 mls/hr 03/09/19 08:45 03/12/19 17:00 Sodium Chloride IV 0 mcg/min TITR CHARLIE 0 mls/hr Titration Protocol 50 MCG/MIN Propofol 1,000 mg in 100 mls @ 2.61 mls/hr 03/11/19 02:00 03/15/19 04:39 Diprivan 10 Mg/Ml IV 0 mcg/kg/min TITR CHARLIE 0 mls/hr Titration Protocol 5 MCG/KG/MIN Fentanyl Citrate 2,000 mcg in 100 mls @ 4.35 mls/hr 03/11/19 18:00 03/14/19 14:18 Fentanyl Drip Premix IV 0 mcg/kg/hr TITR CHARLIE 0 mls/hr Titration Protocol 1 MCG/KG/HR Sodium Chloride 100 mls @ 999 mls/hr 03/13/19 13:20 Nacl 0.9% IV JULIO CESAR PRN Hypotension Sodium Chloride 100 mls @ 999 mls/hr 03/15/19 17:08 Nacl 0.9% IV JULIO CESAR PRN Hypotension Lorazepam 2 mg 03/08/19 14:57 03/15/19 00:15 Ativan IV 2 mg Q1HR PRN Administration CIWA-Ar 8-15 Methylprednisolone Sodium Succinate 40 mg 03/13/19 15:00 03/15/19 15:50 Solu-Medrol IV 40 mg Q24H CHARLIE Administration Metoclopramide HCl 5 mg 03/11/19 09:00 Reglan IV Q6H PRN Nausea And Vomiting Metoprolol Tartrate 5 mg 03/11/19 17:41 03/11/19 20:04 Lopressor IV 5 mg Q6HR PRN Administration Tachyarrhythmias Multi-Ingred Cream/Lotion/Oil/Oint 1 applic 03/08/19 22:51 Artificial Tears Ophth Oint OU Q4HR PRN Dry Eye(s) Pantoprazole Sodium 40 mg 03/12/19 22:00 03/15/19 22:00 Protonix IV 40 mg BID CHARLIE Administration Sodium Chloride 10 ml 03/08/19 22:00 03/15/19 22:42 Sodium Chloride Flush Syringe 10 Ml IV 10 ml BID CHARLIE Administration Sodium Chloride 10 ml 03/08/19 14:56 Sodium Chloride Flush Syringe 10 Ml IV PRN PRN LINE FLUSH
[2019-03-16] MEDS: SUBLIMAZE IV PRN (08:16)
--- NOTE | 2019-03-16 08:53 | Progress Note ---
Assessment and Plan Assessment and plan: This is a 28 yo male with pmh of alcohol abuse presentd to the ED for an episode of hematemesis and melena . He had had another episode of hematemesis in the ED. was seen and evaluated in Ed and diagnosed with acute GI bleedd. He denies abdominal pain. He is drowsy and history is limited. Acute GI bleed due to large esophageal varices - s/p EGD by GI on 03/09, findings are following 1. A pool of blood in the fundus and cardia, not completely cleared out. 2. Blood in the distal esophagus. 3. 3-4 columns of large varices in the mid and distal esophagus. Variceal banding ligation performed with 5 bands placed successfully. 4. No obvious signs of gastric varices noted. 5. No other obvious source of bleeding noted in the stomach or the examined portion of the duodenum. -Per GI treated with PPI IV and octreotide drip x 76 hr. - s/p 4 units PRBC transfusion, cont to monitor h/h - cont ppi bid, placed on prednisone by GI Acute respiratory failure, intubated on vent - wean off vent as tolerated /Acute blood loss anemia, - Due to bleeding esophageal varises and DIC - s/p 4 units blood transfusion, monitor h/h Acute renal failure, likely ATN - nephrology consulted - renal function did not improve with iv fluid and had minimal urine outpt - started on HD since 03/11 with vascath X2 untill today - renal function now stable - monitor off HD Hypotensive due to acute blood loss vs septic shock due to aspiration PNA - s/p pressors, s/p blood transfusion, cont iv fluid - cont abx for asp PNA, so far cx negative DIC, s/p FFP and cryoprecipitate transfusion, consulted Dr Sparks - monitor PT/INR, resolved Coagulopathy with pancytopenia, due to DIC and hepatic cirrhosis, monitor PT/INR/CBC history of alcohol abuse, placed on versad - now off Sepsis with severe lactic acidosis and leukocytosis, POA - blood Cx negative, possible aspiration PNA, cont abx per ID Hyperkalemia, resolved Hypernatremia, cont iv fluid, monitor BMP Elevated LFT, from alcoholic LD/cirrhosis, cont to trend Alcoholic hepatic cirrhosis, GI following, monitor LFT, placed on prednisone DVT Px, SCD - Patient remains critically ill The high probability of a clinically significant, sudden or life threatening deterioration of the [multiple] system(s) required my full and direct attention, intervention and personal management. The aggregate critical care time was [42] minutes. This time is in addition to time spent performing reported procedures but includes the following: [x] Data Review and interpretation [x] Patient assessment and monitoring of vital signs [x] Documentation [x] Medication orders and management History Interval history: He feels better, Still intubated Hospitalist Physical - Physical exam Narrative exam: Gen: Not in acute distress, intubated, on vent HEENT: Normocephalic, atraumatic Neck: supple, no JVD Heart: S1 and S2 reg, no murmurs, rubs or gallop Lungs: Clear to auscultation, no rhonchi, no wheeze Abd: soft, non tender, non distended, normal BS, Ext: No edema, no clubbing, no cyanosis Neuro: Awake,alert,oriented, follows commands,moves all ext - Constitutional Vitals: Temp Pulse Resp BP Pulse Ox 98.3 F 67 14 120/80 95 03/16/19 03:03 03/16/19 08:30 03/16/19 08:30 03/16/19 08:30 03/16/19 08:30 General appearance: Present: no acute distress, other (intubated.) Results - Labs CBC & Chem 7: 03/16/19 06:00 03/16/19 06:00 Labs: Laboratory Last Values WBC 16.1 K/mm3 (4.5-11.0) H 03/16/19 06:00 RBC 2.55 M/mm3 (3.65-5.03) L 03/16/19 06:00 Hgb 8.4 gm/dl (11.8-15.2) L 03/16/19 06:00 Hct 25.2 % (35.5-45.6) L 03/16/19 06:00 MCV 99 fl (84-94) H 03/16/19 06:00 MCH 33 pg (28-32) H 03/16/19 06:00 MCHC 33 % (32-34) 03/16/19 06:00 RDW 23.7 % (13.2-15.2) H 03/16/19 06:00 Plt Count 123 K/mm3 (140-440) L 03/16/19 06:00 Lymph % (Auto) 17.4 % (13.4-35.0) 03/11/19 04:15 [place] % (Auto) Group Managing Director 03/15/19 04:50 Eos % (Auto) 2.7 % (0.0-4.3) 03/11/19 04:15 Baso % (Auto) 0.7 % (0.0-1.8) 03/11/19 04:15 Lymph # 1.1 K/mm3 (1.2-5.4) L 03/11/19 04:15 [place] # 0.4 K/mm3 (0.0-0.8) 03/11/19 04:15 Eos # 0.2 K/mm3 (0.0-0.4) 03/11/19 04:15 Baso # 0.0 K/mm3 (0.0-0.1) 03/11/19 04:15 Add Manual Diff Complete 03/15/19 04:50 Total Counted 100 03/15/19 04:50 Seg Neutrophils % 72.7 % (40.0-70.0) H 03/11/19 04:15 Seg Neuts % (Manual) 87.0 % (40.0-70.0) H 03/15/19 04:50 1.0 % 03/15/19 04:50 6.0 % (13.4-35.0) L 03/15/19 04:50 Reactive Lymphs % (Man) 0 % 03/15/19 04:50 4.0 % (0.0-7.3) 03/15/19 04:50 0 % (0.0-4.3) 03/15/19 04:50 0 % (0.0-1.8) 03/15/19 04:50 2.0 % 03/15/19 04:50 0 % 03/15/19 04:50 0 % 03/15/19 04:50 0 % 03/15/19 04:50 Nucleated RBC % 1.0 % (0.0-0.9) H 03/15/19 04:50 Seg Neutrophils # 4.4 K/mm3 (1.8-7.7) 03/11/19 04:15 Seg Neutrophils # Man 8.4 K/mm3 (1.8-7.7) H 03/15/19 04:50 Band Neutrophils # 0.1 K/mm3 03/15/19 04:50 0.6 K/mm3 (1.2-5.4) L 03/15/19 04:50 Abs React Lymphs (Man) 0.0 K/mm3 03/15/19 04:50 0.4 K/mm3 (0.0-0.8) 03/15/19 04:50 0.0 K/mm3 (0.0-0.4) 03/15/19 04:50 0.0 K/mm3 (0.0-0.1) 03/15/19 04:50 0.2 K/mm3 03/15/19 04:50 0.0 K/mm3 03/15/19 04:50 0.0 K/mm3 03/15/19 04:50 Blast Cells # 0.0 K/mm3 03/15/19 04:50 Pathologist Review 03/10/19 03:36 WBC Morphology Not Reportable 03/15/19 04:50 Hypersegmented Neuts Not Reportable 03/15/19 04:50 Hyposegmented Neuts Not Reportable 03/15/19 04:50 Hypogranular Neuts Not Reportable 03/15/19 04:50 Not Reportable 03/15/19 04:50 Not Reportable 03/15/19 04:50 Not Reportable 03/15/19 04:50 Not Reportable 03/15/19 04:50 Not Reportable 03/15/19 04:50 Not Reportable 03/15/19 04:50 Consistent w auto 03/15/19 04:50 Not Reportable 03/15/19 04:50 Plt Clumps, EDTA Not Reportable 03/15/19 04:50 Not Reportable 03/15/19 04:50 Not Reportable 03/15/19 04:50 Not Reportable 03/15/19 04:50 Plt Morphology Comment Not Reportable 03/15/19 04:50 RBC Morphology Not Reportable 03/15/19 04:50 Dimorphic RBCs Not Reportable 03/15/19 04:50 Few 03/15/19 04:50 Not Reportable 03/15/19 04:50 Not Reportable 03/15/19 04:50 Not Reportable 03/15/19 04:50 Not Reportable 03/15/19 04:50 Rare 03/15/19 04:50 Not Reportable 03/15/19 04:50 Not Reportable 03/15/19 04:50 Not Reportable 03/15/19 04:50 1+ 03/15/19 04:50 Not Reportable 03/15/19 04:50 Few 03/15/19 04:50 Rare 03/14/19 05:25 Not Reportable 03/15/19 04:50 Not Reportable 03/15/19 04:50 Not Reportable 03/15/19 04:50 Not Reportable 03/15/19 04:50 Not Reportable 03/15/19 04:50 Not Reportable 03/15/19 04:50 Not Reportable 03/15/19 04:50 Acanthocytes (Spur) Not Reportable 03/15/19 04:50 Rouleaux Not Reportable 03/15/19 04:50 Not Reportable 03/15/19 04:50 Rare 03/15/19 04:50 Not Reportable 03/15/19 04:50 Not Reportable 03/15/19 04:50 Hem Pathologist Commnt No 03/15/19 04:50 PT 18.5 Sec. (12.2-14.9) H 03/15/19 01:00 INR 1.58 (0.87-1.13) H 03/15/19 01:00 APTT 45.4 Sec. (24.2-36.6) H 03/12/19 07:40 302 mg/dl (211-480) 03/14/19 05:25 1494.02 ng/mlDDU (0-234) H 03/09/19 13:50 POC ABG pH 7.574 (7.35-7.45) H 03/15/19 04:45 ABG pH 7.442 pH Units (7.350-7.450) 03/16/19 06:00 POC ABG pCO2 31.8 (35-45) L 03/09/19 02:02 ABG pCO2 36.4 mm Hg 03/16/19 06:00 POC ABG pO2 123 (80-105) H 03/15/19 04:45 ABG pO2 70.7 mm Hg (80.0-90.0) L 03/16/19 06:00 POC ABG HCO3 25.1 (22-26 mml/L) 03/15/19 04:45 ABG HCO3 24.3 mmol/L (20.0-26.0) 03/16/19 06:00 POC ABG Total CO2 26 (23-27mmol/L) 03/15/19 04:45 POC ABG O2 Sat 99 03/15/19 04:45 ABG O2 Saturation 95.6 % (95.0-99.0) 03/16/19 06:00 ABG O2 Content 10.5 (0.0-44) 03/16/19 06:00 POC ABG Base Excess 3 ((-2) - (+3)mmol/L) 03/15/19 04:45 ABG Base Excess 0.2 mmol/L (-2.0-3.0) 03/16/19 06:00 ABG Hemoglobin 7.9 gm/dl (14.0-18.0) L 03/16/19 06:00 ABG Carboxyhemoglobin 1.9 % (0.0-5.0) 03/16/19 06:00 ABG Methemoglobin 0.6 % (0.0-1.5) 03/16/19 06:00 93.2 % (95.0-99.0) L 03/16/19 06:00 40 % 03/16/19 06:00 Sodium 147 mmol/L (137-145) H 03/16/19 06:00 Potassium 3.4 mmol/L (3.6-5.0) L 03/16/19 06:00 Chloride 108.7 mmol/L (98-107) H 03/16/19 06:00 Carbon Dioxide 25 mmol/L (22-30) 03/16/19 06:00 17 mmol/L 03/16/19 06:00 BUN 29 mg/dL (9-20) H 03/16/19 06:00 1.2 mg/dL (0.8-1.5) 03/16/19 06:00 Estimated GFR > 60 ml/min 03/16/19 06:00 24 % 03/16/19 06:00 Glucose 114 mg/dL (75-100) H 03/16/19 06:00 POC Glucose 135 (70-105) H 03/16/19 03:00 Lactic Acid 19.10 mmol/L (0.7-2.0) H* 03/09/19 07:48 Calcium 7.2 mg/dL (8.4-10.2) L 03/16/19 06:00 Phosphorus 2.80 mg/dL (2.5-4.5) 03/16/19 06:00 Magnesium 2.30 mg/dL (1.7-2.3) 03/16/19 06:00 Iron 208 ug/dL (49-181) H 03/09/19 02:30 TIBC 185 mcg/dL (250-450) L 03/09/19 02:30 4122.0 ng/mL (13.0-400.0) H 03/15/19 04:50 9.90 mg/dL (0.1-1.2) H 03/16/19 06:00 7.4 mg/dL (0-0.2) H 03/12/19 Unknown 1.5 mg/dL 03/12/19 Unknown AST 271 units/L (5-40) H 03/16/19 06:00 ALT 268 units/L (7-56) H 03/16/19 06:00 94 units/L (35-129) 03/16/19 06:00 41.0 umol/L (25-60) 03/12/19 Unknown 6.1 g/dL (6.3-8.2) L 03/16/19 06:00 2.8 g/dL (3.9-5) L 03/16/19 06:00 0.8 % 03/16/19 06:00 385 units/L (13-60) H 03/09/19 Unknown Vitamin B12 > 2000 pg/mL (211-911) H 03/15/19 04:50 Rosa (Yellow) 03/08/19 14:21 Cloudy (Clear) 03/08/19 14:21 5.0 (5.0-7.0) 03/08/19 14:21 Ur Specific [place] 1.015 (1.003-1.030) 03/08/19 14:21 >500 mg/dL (Negative) 03/08/19 14:21 50 mg/dL (Negative) 03/08/19 14:21 20 mg/dL (Negative) 03/08/19 14:21 Sm (Negative) 03/08/19 14:21 Neg (Negative) 03/08/19 14:21 Sm (Negative) 03/08/19 14:21 Positive (Negative) 03/08/19 14:21 4.0 mg/dL (<2.0) 03/08/19 14:21 Ur Leukocyte Esterase Neg (Negative) 03/08/19 14:21 18.0 /HPF (0.0-6.0) H 03/08/19 14:21 2.0 /HPF (0.0-6.0) 03/08/19 14:21 U Epithel Cells (Auto) 4.0 /HPF (0-13.0) 03/08/19 14:21 Few /HPF 03/08/19 14:21 Hyaline Casts 25 /LPF 03/08/19 14:21 3+ /HPF 03/08/19 14:21 Plasma/Serum Alcohol 0.34 % (0-0.07) H 03/08/19 09:34 Hepatitis A IgM Ab Non-reactive (NonReactive) 03/09/19 07:47 Hep Bs Antigen Non-reactive (Negative) 03/09/19 07:47 Hep B Core IgM Ab Non-reactive (NonReactive) 03/09/19 07:47 Non-reactive (NonReactive) 03/09/19 07:47 Blood Type AB POSITIVE 03/08/19 13:12 Antibody Screen Negative 03/08/19 13:12 Crossmatch See Detail 03/08/19 13:12 Active Medications - Current Medications Current Medications: Generic Name Dose Route Start Last Admin Trade Name Sindy PRN Reason Stop Dose Admin Acetaminophen 650 mg 03/09/19 13:00 03/12/19 06:50 Tylenol [place] 650 mg Q4H PRN Administration Pain, Mild (1-3) Albuterol 2.5 mg 03/08/19 14:56 Proventil IH Q3HRT PRN Shortness Of Breath Dextrose 50 ml 03/09/19 01:34 D50w (25gm) Syringe IV PRN PRN Hypoglycemia Fentanyl 50 mcg 03/11/19 17:41 03/16/19 08:16 Sublimaze IV 50 mcg Q10MIN PRN Administration ANALGESIA Hydrophilic Ointment 1 applic 03/08/19 22:51 Vaseline Lip Therapy TP Q2HR PRN Dry Lips Norepinephrine 4 mg in 250 mls @ 7.5 mls/hr 03/09/19 04:00 03/09/19 16:15 Levophed Drip 4 Mg/Ns 250 Ml IV 0 mcg/min TITR CHARLIE 0 mls/hr Titration Protocol 2 MCG/MIN Phenylephrine HCl 100 mg/ 100 mls @ 3 mls/hr 03/09/19 08:45 03/12/19 17:00 Sodium Chloride IV 0 mcg/min TITR CHARLIE 0 mls/hr Titration Protocol 50 MCG/MIN Propofol 1,000 mg in 100 mls @ 2.61 mls/hr 03/11/19 02:00 03/15/19 04:39 Diprivan 10 Mg/Ml IV 0 mcg/kg/min TITR CHARLIE 0 mls/hr Titration Protocol 5 MCG/KG/MIN Fentanyl Citrate 2,000 mcg in 100 mls @ 4.35 mls/hr 03/11/19 18:00 03/14/19 14:18 Fentanyl Drip Premix IV 0 mcg/kg/hr TITR CHARLIE 0 mls/hr Titration Protocol 1 MCG/KG/HR Sodium Chloride 100 mls @ 999 mls/hr 03/13/19 13:20 Nacl 0.9% IV JULIO CESAR PRN Hypotension Sodium Chloride 100 mls @ 999 mls/hr 03/15/19 17:08 Nacl 0.9% IV JULIO CESAR PRN Hypotension Lorazepam 2 mg 03/08/19 14:57 03/15/19 00:15 Ativan IV 2 mg Q1HR PRN Administration CIWA-Ar 8-15 Methylprednisolone Sodium Succinate 40 mg 03/13/19 15:00 03/15/19 15:50 Solu-Medrol IV 40 mg Q24H CHARLIE Administration Metoclopramide HCl 5 mg 03/11/19 09:00 Reglan IV Q6H PRN Nausea And Vomiting Metoprolol Tartrate 5 mg 03/11/19 17:41 03/11/19 20:04 Lopressor IV 5 mg Q6HR PRN Administration Tachyarrhythmias Multi-Ingred Cream/Lotion/Oil/Oint 1 applic 03/08/19 22:51 Artificial Tears Ophth Oint OU Q4HR PRN Dry Eye(s) Pantoprazole Sodium 40 mg 03/12/19 22:00 03/15/19 22:00 Protonix IV 40 mg BID CHARLIE Administration Sodium Chloride 10 ml 03/08/19 22:00 03/15/19 22:42 Sodium Chloride Flush Syringe 10 Ml IV 10 ml BID CHARLIE Administration Sodium Chloride 10 ml 03/08/19 14:56 Sodium Chloride Flush Syringe 10 Ml IV PRN PRN LINE FLUSH Nutrition/Malnutrition Assess - Dietary Evaluation Nutrition/Malnutrition Findings: Nutrition Notes Start: 03/09/19 08:45 Freq: Status: Active Protocol: Document 03/16/19 08:28 LM (Rec: 03/16/19 08:51 LM [id number]) Nutrition Notes Initial or Follow up Reassessment Other Pertinent Diagnosis Cirrhosis, esophageal varices, nicotine and ETOH dependance, hematemesis Current Diet NPO Height 5 ft 11 in Weight 87 kg [place] Body Weight (kg) 78.18 BMI 26.7 Subjective/Other Information MD consult for TPN. Burn Absent Trauma Absent #1 Nutrition Diagnosis Inadequate oral intake Diagnosis Progress(for reassessment Continues documentation) Is patient on ventilator? Yes Is Patient Ambulatory and/or Out of Bed No REE-([facility]-confined to bed) 4082.392 Calculation Used for Recommendations [facility] Additional Notes Protein: 95-159g (1.2-2g/kg) Fluids:1ml/kcal Nutrition Intervention Change Diet Order: Start TPN
[2019-03-16] MEDS: PROTONIX IV SCH ×2 (09:18→21:51)
[2019-03-16] MEDS: SODIUM CHLORIDE FLUSH SYRINGE 10 ML IV SCH ×2 (09:18→21:52)
--- NOTE | 2019-03-16 09:21 | Progress Note ---
Subjective Principal diagnosis: low plt Interval history: Patient was seen today for follow-up no acute distress Events over 24 hours vitals, labs, intake and output. Medications were reviewed Allergies: Reviewed Past medical history: Reviewed Social history: Reviewed Family history: Reviewed Current medications: Reviewed Physical examination Vitals: Reviewed Gen.: No acute distress, alert HEENT: Oral mucosa moist. No icterus Neck: Supple, no JVD Chest: Clear to auscultation anteriorly and posteriorly. No wheezes Heart: Regular rate and rhythm, S1, S2 heard, no S3, S4 Abdomen: Soft, nontender. No renal bruit. No CVA tenderness. No suprapubic fullness Extremity: Dry skin, less than 1+ edema Skin: Dry skin. No purpuric rash Assessment and plan Acute renal failure: patient needs monitoring of renal function his volume can be managed by diuretics Avoid unnecessary dialysis strict intake and output monitoring Renal prognosis remains guarded Supportive care at this time We'll continue to follow and make recommendation from renal standpoint Objective - Vital Signs Vital signs: Vital Signs - 12hr 03/15/19 03/15/19 03/15/19 21:30 21:45 22:00 Temperature Pulse Rate 103 H 85 79 Pulse Rate [ From Monitor] Pulse Rate [ Left Dorsalis Pedis] Pulse Rate [ Right Dorsalis Pedis] Respiratory 29 H 21 31 H Rate Blood Pressure 114/93 134/84 132/82 O2 Sat by Pulse 94 96 94 Oximetry 03/15/19 03/15/19 03/15/19 22:15 22:30 22:45 Temperature Pulse Rate 74 74 76 Pulse Rate [ From Monitor] Pulse Rate [ Left Dorsalis Pedis] Pulse Rate [ Right Dorsalis Pedis] Respiratory 11 L 15 16 Rate Blood Pressure 128/78 123/77 133/80 O2 Sat by Pulse 98 97 96 Oximetry 03/15/19 03/15/19 03/15/19 23:00 23:15 23:30 Temperature Pulse Rate 73 77 74 Pulse Rate [ From Monitor] Pulse Rate [ Left Dorsalis Pedis] Pulse Rate [ Right Dorsalis Pedis] Respiratory 15 16 15 Rate Blood Pressure 127/81 127/82 131/81 O2 Sat by Pulse 97 96 97 Oximetry 03/15/19 03/15/19 03/16/19 23:33 23:45 00:00 Temperature 98.8 F Pulse Rate 72 73 Pulse Rate [ 73 From Monitor] Pulse Rate [ 79 Left Dorsalis Pedis] Pulse Rate [ 79 Right Dorsalis Pedis] Respiratory 16 16 Rate Blood Pressure 132/79 125/76 O2 Sat by Pulse 96 97 Oximetry 03/16/19 03/16/19 03/16/19 00:15 00:30 00:45 Temperature Pulse Rate 75 73 95 H Pulse Rate [ From Monitor] Pulse Rate [ Left Dorsalis Pedis] Pulse Rate [ Right Dorsalis Pedis] Respiratory 16 17 16 Rate Blood Pressure 131/78 127/79 143/84 O2 Sat by Pulse 95 96 93 Oximetry 03/16/19 03/16/19 03/16/19 00:54 01:00 01:15 Temperature Pulse Rate 79 84 73 Pulse Rate [ From Monitor] Pulse Rate [ Left Dorsalis Pedis] Pulse Rate [ Right Dorsalis Pedis] Respiratory 22 15 Rate Blood Pressure 143/84 135/86 130/81 O2 Sat by Pulse 93 95 Oximetry 03/16/19 03/16/19 03/16/19 01:30 01:45 02:00 Temperature Pulse Rate 78 72 78 Pulse Rate [ From Monitor] Pulse Rate [ Left Dorsalis Pedis] Pulse Rate [ Right Dorsalis Pedis] Respiratory 14 16 15 Rate Blood Pressure 130/91 137/85 133/82 O2 Sat by Pulse 97 96 96 Oximetry 03/16/19 03/16/19 03/16/19 02:15 02:31 02:45 Temperature Pulse Rate 70 113 H 69 Pulse Rate [ From Monitor] Pulse Rate [ Left Dorsalis Pedis] Pulse Rate [ Right Dorsalis Pedis] Respiratory 14 17 16 Rate Blood Pressure 133/84 128/89 131/79 O2 Sat by Pulse 97 99 96 Oximetry 03/16/19 03/16/19 03/16/19 03:00 03:03 03:15 Temperature 98.3 F Pulse Rate 73 73 Pulse Rate [ From Monitor] Pulse Rate [ Left Dorsalis Pedis] Pulse Rate [ Right Dorsalis Pedis] Respiratory 14 15 Rate Blood Pressure 138/84 135/84 O2 Sat by Pulse 97 98 Oximetry 03/16/19 03/16/19 03/16/19 03:30 03:45 03:51 Temperature Pulse Rate 100 H 78 Pulse Rate [ 73 From Monitor] Pulse Rate [ 81 Left Dorsalis Pedis] Pulse Rate [ 81 Right Dorsalis Pedis] Respiratory 24 17 16 Rate Blood Pressure 150/93 131/87 O2 Sat by Pulse 93 93 97 Oximetry 03/16/19 03/16/19 03/16/19 04:00 04:15 04:30 Temperature Pulse Rate 72 69 74 Pulse Rate [ From Monitor] Pulse Rate [ Left Dorsalis Pedis] Pulse Rate [ Right Dorsalis Pedis] Respiratory 16 15 15 Rate Blood Pressure 123/79 126/84 133/84 O2 Sat by Pulse 96 96 Oximetry 03/16/19 03/16/19 03/16/19 04:45 05:00 05:15 Temperature Pulse Rate 69 76 99 H Pulse Rate [ From Monitor] Pulse Rate [ Left Dorsalis Pedis] Pulse Rate [ Right Dorsalis Pedis] Respiratory 16 15 31 H Rate Blood Pressure 129/82 138/88 155/102 O2 Sat by Pulse 96 98 90 Oximetry 03/16/19 03/16/19 03/16/19 05:30 05:45 05:46 Temperature Pulse Rate 78 72 72 Pulse Rate [ From Monitor] Pulse Rate [ Left Dorsalis Pedis] Pulse Rate [ Right Dorsalis Pedis] Respiratory 16 16 Rate Blood Pressure 132/87 127/83 127/83 O2 Sat by Pulse 91 92 93 Oximetry 03/16/19 03/16/19 03/16/19 06:01 06:15 06:31 Temperature Pulse Rate 74 70 98 H Pulse Rate [ From Monitor] Pulse Rate [ Left Dorsalis Pedis] Pulse Rate [ Right Dorsalis Pedis] Respiratory 15 15 23 Rate Blood Pressure 127/83 119/79 140/85 O2 Sat by Pulse 94 97 95 Oximetry 03/16/19 03/16/19 03/16/19 06:45 07:00 07:15 Temperature Pulse Rate 93 H 77 84 Pulse Rate [ From Monitor] Pulse Rate [ Left Dorsalis Pedis] Pulse Rate [ Right Dorsalis Pedis] Respiratory 18 13 17 Rate Blood Pressure 133/82 130/86 141/91 O2 Sat by Pulse 92 95 94 Oximetry 03/16/19 03/16/19 03/16/19 07:31 07:45 08:00 Temperature 97.5 F L Pulse Rate 89 73 81 Pulse Rate [ 71 From Monitor] Pulse Rate [ Left Dorsalis Pedis] Pulse Rate [ Right Dorsalis Pedis] Respiratory 19 13 13 Rate Blood Pressure 87/56 128/83 138/89 O2 Sat by Pulse 93 96 Oximetry 09/04/2403/16/19 03/16/19 08:15 08:16 08:30 Temperature Pulse Rate 77 67 Pulse Rate [ From Monitor] Pulse Rate [ Left Dorsalis Pedis] Pulse Rate [ Right Dorsalis Pedis] Respiratory 20 23 14 Rate Blood Pressure 126/79 120/80 O2 Sat by Pulse 95 95 Oximetry - Lab 03/19/19 07:32 03/19/19 07:32 Most recent lab results ABG pH 7.442 pH Units (7.350-7.450) 03/16/19 06:00 ABG pCO2 36.4 mm Hg 03/16/19 06:00 ABG pO2 70.7 mm Hg (80.0-90.0) L 03/16/19 06:00 ABG HCO3 24.3 mmol/L (20.0-26.0) 03/16/19 06:00 ABG O2 Saturation 95.6 % (95.0-99.0) 03/16/19 06:00 Calcium 7.2 mg/dL (8.4-10.2) L 03/16/19 06:00 Phosphorus 2.80 mg/dL (2.5-4.5) 03/16/19 06:00 Magnesium 2.30 mg/dL (1.7-2.3) 03/16/19 06:00 Medications & Allergies - Medications Allergies/Adverse Reactions: Allergies No Known Allergies Allergy (Verified 03/08/19 12:31) Home Medications: Home Medications Medication Instructions Recorded Confirmed Last Taken Type Pantoprazole [Protonix TAB] 40 mg PO BID #60 tablet 03/19/19 Unknown Rx predniSONE [Deltasone] 10 mg PO .TAPER #42 tab 03/19/19 Unknown Rx Active Medications: Generic Name Dose Route Start Last Admin Trade Name Freq PRN Reason Stop Dose Admin Acetaminophen 650 mg 03/09/19 13:00 03/12/19 06:50 Tylenol [place] 650 mg Q4H PRN Administration Pain, Mild (1-3) Albuterol 2.5 mg 03/08/19 14:56 Proventil IH Q3HRT PRN Shortness Of Breath Dextrose 50 ml 03/09/19 01:34 D50w (25gm) Syringe IV PRN PRN Hypoglycemia Fentanyl 50 mcg 03/11/19 17:41 03/16/19 08:16 Sublimaze IV 50 mcg Q10MIN PRN Administration ANALGESIA Hydrophilic Ointment 1 applic 03/08/19 22:51 Vaseline Lip Therapy TP Q2HR PRN Dry Lips Norepinephrine 4 mg in 250 mls @ 7.5 mls/hr 03/09/19 04:00 03/09/19 16:15 Levophed Drip 4 Mg/Ns 250 Ml IV 0 mcg/min TITR CHARLIE 0 mls/hr Titration Protocol 2 MCG/MIN Phenylephrine HCl 100 mg/ 100 mls @ 3 mls/hr 03/09/19 08:45 03/12/19 17:00 Sodium Chloride IV 0 mcg/min TITR CHARLIE 0 mls/hr Titration Protocol 50 MCG/MIN Propofol 1,000 mg in 100 mls @ 2.61 mls/hr 03/11/19 02:00 03/15/19 04:39 Diprivan 10 Mg/Ml IV 0 mcg/kg/min TITR CHARLIE 0 mls/hr Titration Protocol 5 MCG/KG/MIN Fentanyl Citrate 2,000 mcg in 100 mls @ 4.35 mls/hr 03/11/19 18:00 03/14/19 14:18 Fentanyl Drip Premix IV 0 mcg/kg/hr TITR CHARLIE 0 mls/hr Titration Protocol 1 MCG/KG/HR Sodium Chloride 100 mls @ 999 mls/hr 03/13/19 13:20 Nacl 0.9% IV JULIO CESAR PRN Hypotension Sodium Chloride 100 mls @ 999 mls/hr 03/15/19 17:08 Nacl 0.9% IV JULIO CESAR PRN Hypotension Lorazepam 2 mg 03/08/19 14:57 03/15/19 00:15 Ativan IV 2 mg Q1HR PRN Administration KIKE-Jayro 8-15 Methylprednisolone Sodium Succinate 40 mg 03/13/19 15:00 03/15/19 15:50 Solu-Medrol IV 40 mg Q24H CHARLIE Administration Metoclopramide HCl 5 mg 03/11/19 09:00 Reglan IV Q6H PRN Nausea And Vomiting Metoprolol Tartrate 5 mg 03/11/19 17:41 03/11/19 20:04 Lopressor IV 5 mg Q6HR PRN Administration Tachyarrhythmias Multi-Ingred Cream/Lotion/Oil/Oint 1 applic 03/08/19 22:51 Artificial Tears Ophth Oint OU Q4HR PRN Dry Eye(s) Pantoprazole Sodium 40 mg 03/12/19 22:00 03/16/19 09:18 Protonix IV 40 mg BID CHARLIE Administration Sodium Chloride 10 ml 03/08/19 22:00 03/16/19 09:18 Sodium Chloride Flush Syringe 10 Ml IV 10 ml BID CHARLIE Administration Sodium Chloride 10 ml 03/08/19 14:56 Sodium Chloride Flush Syringe 10 Ml IV PRN PRN LINE FLUSH
[2019-03-16 10:22] LABS: ABG Base Excess 0.9 mmol/L (-2.0-3.0); ABG HCO3 24.4 mmol/L (20.0-26.0); ABG Methemoglobin 0.6 % (0.0-1.5); ABG Oxygen Saturation 96.9 % (95.0-99.0); ABG PCO2 34.4 mm Hg; ABG PH 7.469 pH Units (7.350-7.450); ABG PO2 75.8 mm Hg (80.0-90.0)
[2019-03-16 11:22] LABS: Basophils % (Manual) 0 % (0.0-1.8); Eosinophils % (Manual) 0 % (0.0-4.3); Total Cells Counted 100
[2019-03-16 11:23] LABS: Macrocytosis Rare
[2019-03-16 11:24] LABS: Anisocytosis 1+; Ovalocytes Few; Platelet Estimate Consistent w Auto; Target Cells 1+
--- NOTE | 2019-03-16 12:15 | XRay Report ---
CHEST 1 VIEW INDICATION: pulm edema. COMPARISON: 03/15/2019 at 2:29 AM FINDINGS: Support devices: The endotracheal tube is in satisfactory position. A right IJ catheter tip is in the distal SVC and is unchanged. Heart: Within normal limits. Pulmonary vasculature: Normal. Lungs/Pleura: Interval improvement with better aeration of the lungs and decreased hazy bilateral opa cities. Small left pleural effusion. Additional findings: None. IMPRESSION: 1. Interval improvement with near complete resolution of pulmonary edema. 2. A small residual left pleural effusion. Signer Name: Ever Marin MD Signed: 03/16/2019 12:11 PM Workstation Name: [id number]
--- NOTE | 2019-03-16 12:41 | Progress Note ---
Assessment and Plan Acute GI bleed due to large esophageal varices, with hemorrhagic shock s/p EGD by GI, Acute hypoxemic respiratory failure on MVS Possible septic shock, temperature spike Severe lactic acidosis History of alcohol abuse disorder Acute renal failure, likley ATN Hypernatremia Alcoholic hepatic cirrhosis - get ABG on SBT - extubate if acceptable - prn BIPAP post extubation - appreciate nephrology input; S/P UF session yesterday - ST evaluation post extubation and advance diet per G.I. - continue TPN nutritional support for now - continue daily SAT's and SBT's as tolerated - PPI now dosed bid - continue to use fentanyl re: ? pain component to tachyarrythmia - target RASS 0 to -1 - continue prn metoprolol for pulse >/= 130/min - continue HD/UF per nephrology prescription and for volume control - Continue with supportive blood transfusions to keep serum Hb > 7.0 - prn vasopressor support to keep MAP> 60-65 - Monitor hemodynamics closely - VAP bundle addressed - continue to wean FiO2 for sats > 90% at this point (Anemia improved) - Transfuse to keep HgB > 7g/dL, Platelets >/= 50K - continue hoffman catheter re: ADRIANNE - Hypotonic solutions to treat hypernatremia - continue CIWA protocol - PPI, therapeutic dosing, change continuous infusion to BID dosing once ok with G.I. team - continue Strict NPO for now (no NGT or OGT placement to avoid dislodging the bands) - begin daily SAT and SBT assessment as tolerated - continue to avoid nephrotoxins, adjust all medications for GFR and CRCL - SCDs for VTE prophylaxis - continue accuchecks q4 with hypoglycemia protocol; target BG of 140-180 mg/dl acutely - continue to monitor for TRALI - continue other care per attending / other consultants ... re-evaluate in am & prn CONDITION: CRITIAL PROGNOSIS: GUARDED CODE STATUS: FULL CODE Discussed extensively with RT/RN and care team in ICU IDT rounds The high probability of a clinically significant, sudden or life threatening deterioration of the respiratory, gastroenterology/hepatology, renal systems required my full and direct attention, intervention and personal management. The aggregate critical care time was 31 minutes. This time is in addition to time spent performing reported procedures but includes the following: [x] Data Review and interpretation [x] Patient assessment and monitoring of vital signs [x] Documentation [x] Medication orders and management Subjective Date of service: 03/16/19 Principal diagnosis: Ac. GI bleed; hemorrhagic shock; Ac. hypoxemic resp failure; ADRIANNE venkateshley ATN Interval history: Patient is seen today for: Ac. GI bleed (esophageal varices); hemorrhagic shock; Ac. hypoxemic resp failure; Possible septic shock; Severe lactic acidosis; H/O alcohol abuse disorder; Acute renal failure, likely ATN; Hypernatremia Seen and examined at bedside; 24hour events reviewed; nursing and respiratory care staff consulted; no adverse overnight events reported to me; resting peacefully in bed; tolerating SBT much better today; denies acute chest pains or palpitations; No N/V/F/C; denies chest pains; no gross bleeding; hungry Objective Vital Signs - 12hr 03/16/19 03/16/19 03/16/19 00:45 00:54 01:00 Temperature Pulse Rate 95 H 79 84 Pulse Rate [ From Monitor] Pulse Rate [ Left Dorsalis Pedis] Pulse Rate [ Right Dorsalis Pedis] Respiratory 16 22 Rate Blood Pressure 143/84 143/84 135/86 O2 Sat by Pulse 93 93 Oximetry 03/16/19 03/16/19 03/16/19 01:15 01:30 01:45 Temperature Pulse Rate 73 78 72 Pulse Rate [ From Monitor] Pulse Rate [ Left Dorsalis Pedis] Pulse Rate [ Right Dorsalis Pedis] Respiratory 15 14 16 Rate Blood Pressure 130/81 130/91 137/85 O2 Sat by Pulse 95 97 96 Oximetry 03/16/19 03/16/19 03/16/19 02:00 02:15 02:31 Temperature Pulse Rate 78 70 113 H Pulse Rate [ From Monitor] Pulse Rate [ Left Dorsalis Pedis] Pulse Rate [ Right Dorsalis Pedis] Respiratory 15 14 17 Rate Blood Pressure 133/82 133/84 128/89 O2 Sat by Pulse 96 97 99 Oximetry 03/16/19 03/16/19 03/16/19 02:45 03:00 03:03 Temperature 98.3 F Pulse Rate 69 73 Pulse Rate [ From Monitor] Pulse Rate [ Left Dorsalis Pedis] Pulse Rate [ Right Dorsalis Pedis] Respiratory 16 14 Rate Blood Pressure 131/79 138/84 O2 Sat by Pulse 96 97 Oximetry 03/16/19 03/16/19 03/16/19 03:15 03:30 03:45 Temperature Pulse Rate 73 100 H 78 Pulse Rate [ From Monitor] Pulse Rate [ Left Dorsalis Pedis] Pulse Rate [ Right Dorsalis Pedis] Respiratory 15 24 17 Rate Blood Pressure 135/84 150/93 131/87 O2 Sat by Pulse 98 93 93 Oximetry 03/16/19 03/16/19 03/16/19 03:51 04:00 04:15 Temperature Pulse Rate 72 69 Pulse Rate [ 73 From Monitor] Pulse Rate [ 81 Left Dorsalis Pedis] Pulse Rate [ 81 Right Dorsalis Pedis] Respiratory 16 16 15 Rate Blood Pressure 123/79 126/84 O2 Sat by Pulse 97 96 Oximetry 03/16/19 03/16/19 03/16/19 04:30 04:45 05:00 Temperature Pulse Rate 74 69 76 Pulse Rate [ From Monitor] Pulse Rate [ Left Dorsalis Pedis] Pulse Rate [ Right Dorsalis Pedis] Respiratory 15 16 15 Rate Blood Pressure 133/84 129/82 138/88 O2 Sat by Pulse 96 96 98 Oximetry 03/16/19 03/16/19 03/16/19 05:15 05:30 05:45 Temperature Pulse Rate 99 H 78 72 Pulse Rate [ From Monitor] Pulse Rate [ Left Dorsalis Pedis] Pulse Rate [ Right Dorsalis Pedis] Respiratory 31 H 16 16 Rate Blood Pressure 155/102 132/87 127/83 O2 Sat by Pulse 90 91 92 Oximetry 03/16/19 03/16/19 03/16/19 05:46 06:01 06:15 Temperature Pulse Rate 72 74 70 Pulse Rate [ From Monitor] Pulse Rate [ Left Dorsalis Pedis] Pulse Rate [ Right Dorsalis Pedis] Respiratory 15 15 Rate Blood Pressure 127/83 127/83 119/79 O2 Sat by Pulse 93 94 97 Oximetry 03/16/19 03/16/19 03/16/19 06:31 06:45 07:00 Temperature Pulse Rate 98 H 93 H 77 Pulse Rate [ From Monitor] Pulse Rate [ Left Dorsalis Pedis] Pulse Rate [ Right Dorsalis Pedis] Respiratory 23 18 13 Rate Blood Pressure 140/85 133/82 130/86 O2 Sat by Pulse 95 92 95 Oximetry 03/16/19 03/16/19 03/16/19 07:15 07:31 07:45 Temperature Pulse Rate 84 89 73 Pulse Rate [ From Monitor] Pulse Rate [ Left Dorsalis Pedis] Pulse Rate [ Right Dorsalis Pedis] Respiratory 17 19 13 Rate Blood Pressure 141/91 87/56 128/83 O2 Sat by Pulse 94 93 Oximetry 03/16/19 03/16/19 03/16/19 08:00 08:15 08:16 Temperature 97.5 F L Pulse Rate 71 77 Pulse Rate [ 71 From Monitor] Pulse Rate [ Left Dorsalis Pedis] Pulse Rate [ Right Dorsalis Pedis] Respiratory 13 20 23 Rate Blood Pressure 138/89 126/79 O2 Sat by Pulse 96 95 Oximetry 03/16/19 03/16/19 03/16/19 08:30 09:00 09:16 Temperature Pulse Rate 67 67 Pulse Rate [ From Monitor] Pulse Rate [ Left Dorsalis Pedis] Pulse Rate [ Right Dorsalis Pedis] Respiratory 14 12 14 Rate Blood Pressure 120/80 124/82 O2 Sat by Pulse 95 97 Oximetry 03/16/19 03/16/19 03/16/19 10:00 11:10 12:00 Temperature Pulse Rate 73 79 75 Pulse Rate [ From Monitor] Pulse Rate [ Left Dorsalis Pedis] Pulse Rate [ Right Dorsalis Pedis] Respiratory 13 14 Rate Blood Pressure 134/85 O2 Sat by Pulse 98 94 Oximetry Constitutional: no acute distress, alert, other (young AM, normocephalic with mildly increased resp effort on MVS) Eyes: injected ENT: oropharynx moist, other (ETT 23-24 cm YARED) Neck: supple, no lymphadenopathy, no JVD Effort: mildly labored Ascultation: Bilateral: diminished breath sounds, rales Percussion: Bilateral: not dull Cardiovascular: regular rate and rhythm, other (Tachcardia, regular, S1,S2, no murmurs) Gastrointestinal: normoactive bowel sounds, soft, non-tender, other (mildly distended) Integumentary: normal Extremities: no cyanosis, pink and warm, pulses normal, no ischemia or petechiae, edema Neurologic: normal mental status, non-focal exam (grossly), pupils equal and round, CN II-XII normal, motor strength normal and Psychiatric: mood appropriate, affect normal CBC and BMP: 03/16/19 06:00 03/16/19 06:00 ABG, PT/INR, D-dimer: ABG POC ABG pH 7.574 (7.35-7.45) H 03/15/19 04:45 ABG pH 7.469 pH Units (7.350-7.450) H 03/16/19 10:08 ABG pCO2 34.4 mm Hg 03/16/19 10:08 POC ABG pO2 123 (80-105) H 03/15/19 04:45 ABG pO2 75.8 mm Hg (80.0-90.0) L 03/16/19 10:08 POC ABG HCO3 25.1 (22-26 mml/L) 03/15/19 04:45 POC ABG Total CO2 26 (23-27mmol/L) 03/15/19 04:45 POC ABG O2 Sat 99 03/15/19 04:45 ABG O2 Saturation 96.9 % (95.0-99.0) 03/16/19 10:08 PT/INR, D-dimer PT 18.5 Sec. (12.2-14.9) H 03/15/19 01:00 INR 1.58 (0.87-1.13) H 03/15/19 01:00 1494.02 ng/mlDDU (0-234) H 03/09/19 13:50 Abnormal lab findings: Abnormal Labs 03/08/19 03/08/19 03/08/19 09:34 12:57 12:59 WBC RBC 3.14 L Hgb 11.3 L Hct 33.3 L MCV 106 H MCH 36 H MCHC RDW 18.5 H Plt Count 61 L Lymph # Seg Neutrophils % Seg Neuts % (Manual) Lymphocytes % (Manual) 50.0 H Monocytes % (Manual) Eosinophils % (Manual) Basophils % (Manual) Nucleated RBC % Seg Neutrophils # Man Lymphocytes # (Manual) Monocytes # (Manual) PT 16.9 H INR 1.41 H APTT Fibrinogen D-Dimer POC ABG pH ABG pH POC ABG pCO2 POC ABG pO2 ABG pO2 ABG Hemoglobin Oxyhemoglobin Sodium Potassium Chloride Carbon Dioxide BUN Creatinine Glucose POC Glucose Lactic Acid Calcium Phosphorus Iron TIBC Ferritin Total Bilirubin Direct Bilirubin AST ALT Total Protein Albumin Lipase Vitamin B12 Urine WBC (Auto) Plasma/Serum Alcohol 0.34 H Crossmatch 03/08/19 03/08/19 03/08/19 13:12 13:14 14:21 WBC RBC Hgb Hct MCV MCH MCHC RDW Plt Count Lymph # Seg Neutrophils % Seg Neuts % (Manual) Lymphocytes % (Manual) Monocytes % (Manual) Eosinophils % (Manual) Basophils % (Manual) Nucleated RBC % Seg Neutrophils # Man Lymphocytes # (Manual) Monocytes # (Manual) PT INR APTT Fibrinogen D-Dimer POC ABG pH ABG pH POC ABG pCO2 POC ABG pO2 ABG pO2 ABG Hemoglobin Oxyhemoglobin Sodium Potassium Chloride 89.4 L Carbon Dioxide 8 L* BUN Creatinine Glucose 74 L POC Glucose Lactic Acid Calcium Phosphorus Iron TIBC Ferritin Total Bilirubin 4.70 H Direct Bilirubin AST 611 H ALT 153 H Total Protein Albumin Lipase Vitamin B12 Urine WBC (Auto) 18.0 H Plasma/Serum Alcohol Crossmatch See Detail 03/08/19 03/08/19 03/08/19 20:51 20:51 22:29 WBC 17.0 H RBC 2.21 L Hgb 8.0 L D Hct 26.8 L D MCV 121 H MCH 36 H MCHC 30 L RDW 20.5 H Plt Count 84 L Lymph # Seg Neutrophils % Seg Neuts % (Manual) 83.0 H Lymphocytes % (Manual) 8.0 L Monocytes % (Manual) 9.0 H Eosinophils % (Manual) Basophils % (Manual) Nucleated RBC % 1.0 H Seg Neutrophils # Man 14.1 H Lymphocytes # (Manual) Monocytes # (Manual) 1.5 H PT INR APTT Fibrinogen D-Dimer POC ABG pH ABG pH POC ABG pCO2 POC ABG pO2 ABG pO2 ABG Hemoglobin Oxyhemoglobin Sodium Potassium 7.0 H* D Chloride 90.7 L Carbon Dioxide 3 L* BUN Creatinine 1.6 H Glucose 60 L POC Glucose 48 L Lactic Acid Calcium 8.0 L Phosphorus Iron TIBC Ferritin Total Bilirubin 5.00 H Direct Bilirubin AST 1815 H ALT 399 H Total Protein Albumin 3.7 L Lipase Vitamin B12 Urine WBC (Auto) Plasma/Serum Alcohol Crossmatch 03/08/19 03/08/19 03/08/19 22:43 23:00 23:10 WBC RBC Hgb Hct MCV MCH MCHC RDW Plt Count Lymph # Seg Neutrophils % Seg Neuts % (Manual) Lymphocytes % (Manual) Monocytes % (Manual) Eosinophils % (Manual) Basophils % (Manual) Nucleated RBC % Seg Neutrophils # Man Lymphocytes # (Manual) Monocytes # (Manual) PT INR APTT Fibrinogen D-Dimer POC ABG pH ABG pH POC ABG pCO2 POC ABG pO2 ABG pO2 ABG Hemoglobin Oxyhemoglobin Sodium Potassium 7.9 H* Chloride 86.4 L Carbon Dioxide 9 L* BUN Creatinine 1.7 H Glucose 314 H POC Glucose Lactic Acid 23.50 H* Calcium Phosphorus 8.60 H Iron TIBC Ferritin Total Bilirubin Direct Bilirubin AST ALT Total Protein Albumin Lipase Vitamin B12 Urine WBC (Auto) Plasma/Serum Alcohol Crossmatch 03/08/19 03/09/19 03/09/19 23:50 00:00 00:31 WBC RBC Hgb Hct MCV MCH MCHC RDW Plt Count Lymph # Seg Neutrophils % Seg Neuts % (Manual) Lymphocytes % (Manual) Monocytes % (Manual) Eosinophils % (Manual) Basophils % (Manual) Nucleated RBC % Seg Neutrophils # Man Lymphocytes # (Manual) Monocytes # (Manual) PT INR APTT Fibrinogen D-Dimer POC ABG pH 7.120 L ABG pH POC ABG pCO2 30.7 L POC ABG pO2 130 H ABG pO2 ABG Hemoglobin Oxyhemoglobin Sodium Potassium 6.3 H* D Chloride 93.7 L Carbon Dioxide 11 L BUN 21 H Creatinine 1.7 H Glucose 219 H POC Glucose 206 H Lactic Acid Calcium 8.2 L Phosphorus Iron TIBC Ferritin Total Bilirubin Direct Bilirubin AST ALT Total Protein Albumin Lipase Vitamin B12 Urine WBC (Auto) Plasma/Serum Alcohol Crossmatch 03/09/19 03/09/19 03/09/19 00:47 01:45 02:02 WBC RBC 1.72 L Hgb 6.3 L Hct 20.0 L D MCV 117 H MCH 37 H MCHC 31 L RDW 20.9 H Plt Count 62 L Lymph # Seg Neutrophils % Seg Neuts % (Manual) 93.0 H Lymphocytes % (Manual) 6.0 L Monocytes % (Manual) Eosinophils % (Manual) Basophils % (Manual) Nucleated RBC % 1.0 H Seg Neutrophils # Man 9.6 H Lymphocytes # (Manual) 0.6 L Monocytes # (Manual) PT INR APTT Fibrinogen D-Dimer POC ABG pH ABG pH POC ABG pCO2 31.8 L POC ABG pO2 142 H ABG pO2 ABG Hemoglobin Oxyhemoglobin Sodium Potassium Chloride Carbon Dioxide BUN Creatinine Glucose POC Glucose 182 H Lactic Acid Calcium Phosphorus Iron TIBC Ferritin Total Bilirubin Direct Bilirubin AST ALT Total Protein Albumin Lipase Vitamin B12 Urine WBC (Auto) Plasma/Serum Alcohol Crossmatch 03/09/19 03/09/19 03/09/19 02:10 02:30 03:00 WBC RBC Hgb Hct MCV MCH MCHC RDW Plt Count Lymph # Seg Neutrophils % Seg Neuts % (Manual) Lymphocytes % (Manual) Monocytes % (Manual) Eosinophils % (Manual) Basophils % (Manual) Nucleated RBC % Seg Neutrophils # Man Lymphocytes # (Manual) Monocytes # (Manual) PT INR APTT Fibrinogen D-Dimer POC ABG pH ABG pH POC ABG pCO2 POC ABG pO2 ABG pO2 ABG Hemoglobin Oxyhemoglobin Sodium 150 H D Potassium Chloride Carbon Dioxide BUN Creatinine Glucose 177 H POC Glucose 178 H Lactic Acid Calcium 10.5 H D Phosphorus Iron 208 H TIBC 185 L Ferritin Total Bilirubin Direct Bilirubin AST ALT Total Protein Albumin Lipase Vitamin B12 Urine WBC (Auto) Plasma/Serum Alcohol Crossmatch 03/09/19 03/09/19 03/09/19 04:16 05:46 07:47 WBC RBC 1.06 L Hgb 3.9 L* Hct 11.7 L* D MCV 111 H MCH 37 H MCHC RDW 20.0 H Plt Count 52 L Lymph # Seg Neutrophils % 79.1 H Seg Neuts % (Manual) Lymphocytes % (Manual) Monocytes % (Manual) Eosinophils % (Manual) Basophils % (Manual) Nucleated RBC % Seg Neutrophils # Man Lymphocytes # (Manual) Monocytes # (Manual) PT INR APTT Fibrinogen D-Dimer POC ABG pH ABG pH POC ABG pCO2 POC ABG pO2 ABG pO2 ABG Hemoglobin Oxyhemoglobin Sodium Potassium Chloride Carbon Dioxide BUN Creatinine Glucose POC Glucose 201 H 176 H Lactic Acid Calcium Phosphorus Iron TIBC Ferritin Total Bilirubin Direct Bilirubin AST ALT Total Protein Albumin Lipase Vitamin B12 Urine WBC (Auto) Plasma/Serum Alcohol Crossmatch 03/09/19 03/09/19 03/09/19 07:48 07:48 13:50 WBC RBC 2.69 L Hgb 8.9 L D Hct 25.8 L D MCV 96 H MCH 33 H MCHC 35 H RDW 17.1 H Plt Count 49 L Lymph # Seg Neutrophils % 79.1 H Seg Neuts % (Manual) Lymphocytes % (Manual) Monocytes % (Manual) Eosinophils % (Manual) Basophils % (Manual) Nucleated RBC % Seg Neutrophils # Man Lymphocytes # (Manual) Monocytes # (Manual) PT INR APTT Fibrinogen D-Dimer POC ABG pH ABG pH POC ABG pCO2 POC ABG pO2 ABG pO2 ABG Hemoglobin Oxyhemoglobin Sodium 154 H Potassium Chloride 111.2 H Carbon Dioxide 18 L BUN 22 H Creatinine 2.1 H Glucose 131 H POC Glucose Lactic Acid 19.10 H* Calcium Phosphorus Iron TIBC Ferritin Total Bilirubin Direct Bilirubin AST ALT Total Protein Albumin Lipase Vitamin B12 Urine WBC (Auto) Plasma/Serum Alcohol Crossmatch 03/09/19 03/09/19 03/09/19 13:50 14:20 16:08 WBC RBC Hgb Hct MCV MCH MCHC RDW Plt Count Lymph # Seg Neutrophils % Seg Neuts % (Manual) Lymphocytes % (Manual) Monocytes % (Manual) Eosinophils % (Manual) Basophils % (Manual) Nucleated RBC % Seg Neutrophils # Man Lymphocytes # (Manual) Monocytes # (Manual) PT 28.2 H INR 2.70 H APTT 41.8 H Fibrinogen 81 L* D-Dimer 1494.02 H POC ABG pH ABG pH POC ABG pCO2 POC ABG pO2 ABG pO2 ABG Hemoglobin Oxyhemoglobin Sodium Potassium Chloride Carbon Dioxide BUN Creatinine Glucose POC Glucose 188 H 235 H Lactic Acid Calcium Phosphorus Iron TIBC Ferritin Total Bilirubin Direct Bilirubin AST ALT Total Protein Albumin Lipase Vitamin B12 Urine WBC (Auto) Plasma/Serum Alcohol Crossmatch 03/09/19 03/09/19 03/09/19 17:55 23:26 Unknown WBC RBC Hgb Hct MCV MCH MCHC RDW Plt Count Lymph # Seg Neutrophils % Seg Neuts % (Manual) Lymphocytes % (Manual) Monocytes % (Manual) Eosinophils % (Manual) Basophils % (Manual) Nucleated RBC % Seg Neutrophils # Man Lymphocytes # (Manual) Monocytes # (Manual) PT INR APTT Fibrinogen D-Dimer POC ABG pH ABG pH POC ABG pCO2 POC ABG pO2 ABG pO2 ABG Hemoglobin Oxyhemoglobin Sodium Potassium Chloride Carbon Dioxide BUN Creatinine Glucose POC Glucose 233 H 236 H Lactic Acid Calcium Phosphorus Iron TIBC Ferritin Total Bilirubin Direct Bilirubin AST ALT Total Protein Albumin Lipase 385 H Vitamin B12 Urine WBC (Auto) Plasma/Serum Alcohol Crossmatch 03/10/19 03/10/19 03/10/19 00:04 03:36 03:36 WBC RBC 2.11 L Hgb 7.8 L 7.1 L Hct 22.0 L 19.7 L* MCV MCH 34 H MCHC 36 H RDW 17.9 H Plt Count 45 L Lymph # Seg Neutrophils % 73.6 H Seg Neuts % (Manual) 90.0 H Lymphocytes % (Manual) 3.0 L Monocytes % (Manual) Eosinophils % (Manual) Basophils % (Manual) Nucleated RBC % 3.0 H Seg Neutrophils # Man Lymphocytes # (Manual) 0.2 L Monocytes # (Manual) PT INR APTT Fibrinogen D-Dimer POC ABG pH ABG pH POC ABG pCO2 POC ABG pO2 ABG pO2 ABG Hemoglobin Oxyhemoglobin Sodium 150 H Potassium 3.3 L D Chloride 113.2 H Carbon Dioxide BUN 30 H Creatinine 3.4 H D Glucose 196 H POC Glucose Lactic Acid Calcium 8.2 L Phosphorus Iron TIBC Ferritin Total Bilirubin Direct Bilirubin AST ALT Total Protein Albumin Lipase Vitamin B12 Urine WBC (Auto) Plasma/Serum Alcohol Crossmatch 03/10/19 03/10/19 03/10/19 03:36 03:53 03:56 WBC RBC Hgb Hct MCV MCH MCHC RDW Plt Count Lymph # Seg Neutrophils % Seg Neuts % (Manual) Lymphocytes % (Manual) Monocytes % (Manual) Eosinophils % (Manual) Basophils % (Manual) Nucleated RBC % Seg Neutrophils # Man Lymphocytes # (Manual) Monocytes # (Manual) PT INR APTT Fibrinogen D-Dimer POC ABG pH ABG pH POC ABG pCO2 POC ABG pO2 ABG pO2 94.7 H ABG Hemoglobin 6.5 L Oxyhemoglobin Sodium Potassium Chloride Carbon Dioxide BUN Creatinine Glucose POC Glucose 212 H Lactic Acid Calcium Phosphorus Iron TIBC Ferritin Total Bilirubin 4.90 H Direct Bilirubin 3.9 H AST 6235 H ALT 924 H Total Protein 4.2 L D Albumin 2.5 L Lipase Vitamin B12 Urine WBC (Auto) Plasma/Serum Alcohol Crossmatch 03/10/19 03/10/19 03/10/19 05:58 08:12 09:26 WBC RBC Hgb Hct MCV MCH MCHC RDW Plt Count Lymph # Seg Neutrophils % Seg Neuts % (Manual) Lymphocytes % (Manual) Monocytes % (Manual) Eosinophils % (Manual) Basophils % (Manual) Nucleated RBC % Seg Neutrophils # Man Lymphocytes # (Manual) Monocytes # (Manual) PT 29.3 H INR 2.83 H APTT Fibrinogen D-Dimer POC ABG pH ABG pH POC ABG pCO2 POC ABG pO2 ABG pO2 ABG Hemoglobin Oxyhemoglobin Sodium Potassium Chloride Carbon Dioxide BUN Creatinine Glucose POC Glucose 171 H 197 H Lactic Acid Calcium Phosphorus Iron TIBC Ferritin Total Bilirubin Direct Bilirubin AST ALT Total Protein Albumin Lipase Vitamin B12 Urine WBC (Auto) Plasma/Serum Alcohol Crossmatch 03/10/19 03/10/19 03/10/19 11:40 14:04 16:18 WBC RBC Hgb 6.7 L Hct 18.8 L* MCV MCH MCHC RDW Plt Count Lymph # Seg Neutrophils % Seg Neuts % (Manual) Lymphocytes % (Manual) Monocytes % (Manual) Eosinophils % (Manual) Basophils % (Manual) Nucleated RBC % Seg Neutrophils # Man Lymphocytes # (Manual) Monocytes # (Manual) PT INR APTT Fibrinogen D-Dimer POC ABG pH ABG pH POC ABG pCO2 POC ABG pO2 ABG pO2 ABG Hemoglobin Oxyhemoglobin Sodium Potassium Chloride Carbon Dioxide BUN Creatinine Glucose POC Glucose 178 H 192 H Lactic Acid Calcium Phosphorus Iron TIBC Ferritin Total Bilirubin Direct Bilirubin AST ALT Total Protein Albumin Lipase Vitamin B12 Urine WBC (Auto) Plasma/Serum Alcohol Crossmatch 03/10/19 03/10/19 03/11/19 21:42 22:00 00:05 WBC RBC Hgb 7.4 L Hct 21.1 L MCV MCH MCHC RDW Plt Count Lymph # Seg Neutrophils % Seg Neuts % (Manual) Lymphocytes % (Manual) Monocytes % (Manual) Eosinophils % (Manual) Basophils % (Manual) Nucleated RBC % Seg Neutrophils # Man Lymphocytes # (Manual) Monocytes # (Manual) PT INR APTT Fibrinogen D-Dimer POC ABG pH ABG pH POC ABG pCO2 POC ABG pO2 ABG pO2 ABG Hemoglobin Oxyhemoglobin Sodium Potassium Chloride Carbon Dioxide BUN Creatinine Glucose POC Glucose 174 H 136 H Lactic Acid Calcium Phosphorus Iron TIBC Ferritin Total Bilirubin Direct Bilirubin AST ALT Total Protein Albumin Lipase Vitamin B12 Urine WBC (Auto) Plasma/Serum Alcohol Crossmatch 03/11/19 03/11/19 03/11/19 04:04 04:15 04:15 WBC RBC 2.28 L Hgb 7.4 L Hct 20.8 L MCV MCH 33 H MCHC 36 H RDW 18.4 H Plt Count 38 L Lymph # 1.1 L Seg Neutrophils % 72.7 H Seg Neuts % (Manual) Lymphocytes % (Manual) Monocytes % (Manual) Eosinophils % (Manual) Basophils % (Manual) Nucleated RBC % Seg Neutrophils # Man Lymphocytes # (Manual) Monocytes # (Manual) PT INR APTT Fibrinogen D-Dimer POC ABG pH ABG pH POC ABG pCO2 POC ABG pO2 ABG pO2 ABG Hemoglobin Oxyhemoglobin Sodium 147 H Potassium 3.2 L Chloride 109.2 H Carbon Dioxide BUN 34 H Creatinine 5.0 H Glucose 132 H POC Glucose 133 H Lactic Acid Calcium 7.5 L Phosphorus Iron TIBC Ferritin Total Bilirubin 7.40 H Direct Bilirubin AST 3748 H ALT 864 H Total Protein 4.7 L Albumin 2.5 L Lipase Vitamin B12 Urine WBC (Auto) Plasma/Serum Alcohol Crossmatch 03/11/19 03/11/19 03/11/19 04:25 08:28 12:03 WBC RBC Hgb Hct MCV MCH MCHC RDW Plt Count Lymph # Seg Neutrophils % Seg Neuts % (Manual) Lymphocytes % (Manual) Monocytes % (Manual) Eosinophils % (Manual) Basophils % (Manual) Nucleated RBC % Seg Neutrophils # Man Lymphocytes # (Manual) Monocytes # (Manual) PT INR APTT Fibrinogen D-Dimer POC ABG pH ABG pH 7.467 H POC ABG pCO2 POC ABG pO2 ABG pO2 69.6 L ABG Hemoglobin 7.4 L Oxyhemoglobin 94.3 L Sodium Potassium Chloride Carbon Dioxide BUN Creatinine Glucose POC Glucose 128 H 122 H Lactic Acid Calcium Phosphorus Iron TIBC Ferritin Total Bilirubin Direct Bilirubin AST ALT Total Protein Albumin Lipase Vitamin B12 Urine WBC (Auto) Plasma/Serum Alcohol Crossmatch 03/11/19 03/11/19 03/11/19 17:01 20:09 23:58 WBC RBC Hgb Hct MCV MCH MCHC RDW Plt Count Lymph # Seg Neutrophils % Seg Neuts % (Manual) Lymphocytes % (Manual) Monocytes % (Manual) Eosinophils % (Manual) Basophils % (Manual) Nucleated RBC % Seg Neutrophils # Man Lymphocytes # (Manual) Monocytes # (Manual) PT INR APTT Fibrinogen D-Dimer POC ABG pH ABG pH POC ABG pCO2 POC ABG pO2 ABG pO2 ABG Hemoglobin Oxyhemoglobin Sodium Potassium Chloride Carbon Dioxide BUN Creatinine Glucose POC Glucose 135 H 155 H 119 H Lactic Acid Calcium Phosphorus Iron TIBC Ferritin Total Bilirubin Direct Bilirubin AST ALT Total Protein Albumin Lipase Vitamin B12 Urine WBC (Auto) Plasma/Serum Alcohol Crossmatch 03/12/19 03/12/19 03/12/19 03:00 04:10 05:24 WBC RBC Hgb Hct MCV MCH MCHC RDW Plt Count Lymph # Seg Neutrophils % Seg Neuts % (Manual) Lymphocytes % (Manual) Monocytes % (Manual) Eosinophils % (Manual) Basophils % (Manual) Nucleated RBC % Seg Neutrophils # Man Lymphocytes # (Manual) Monocytes # (Manual) PT INR APTT Fibrinogen D-Dimer POC ABG pH ABG pH 7.467 H POC ABG pCO2 POC ABG pO2 ABG pO2 77.8 L ABG Hemoglobin 7.3 L Oxyhemoglobin 94.2 L Sodium Potassium Chloride Carbon Dioxide BUN Creatinine Glucose POC Glucose 137 H 137 H Lactic Acid Calcium Phosphorus Iron TIBC Ferritin Total Bilirubin Direct Bilirubin AST ALT Total Protein Albumin Lipase Vitamin B12 Urine WBC (Auto) Plasma/Serum Alcohol Crossmatch 03/12/19 03/12/19 03/12/19 07:40 07:40 08:40 WBC RBC 2.24 L Hgb 7.4 L Hct 20.9 L MCV MCH 33 H MCHC 35 H RDW 19.0 H Plt Count 45 L Lymph # Seg Neutrophils % Seg Neuts % (Manual) 76.0 H Lymphocytes % (Manual) Monocytes % (Manual) Eosinophils % (Manual) Basophils % (Manual) Nucleated RBC % 11.0 H Seg Neutrophils # Man Lymphocytes # (Manual) 1.1 L Monocytes # (Manual) PT 22.4 H INR 2.02 H APTT 45.4 H Fibrinogen D-Dimer POC ABG pH ABG pH POC ABG pCO2 POC ABG pO2 ABG pO2 ABG Hemoglobin Oxyhemoglobin Sodium Potassium Chloride Carbon Dioxide BUN Creatinine Glucose POC Glucose 132 H Lactic Acid Calcium Phosphorus Iron TIBC Ferritin Total Bilirubin Direct Bilirubin AST ALT Total Protein Albumin Lipase Vitamin B12 Urine WBC (Auto) Plasma/Serum Alcohol Crossmatch 03/12/19 03/12/19 03/12/19 12:00 16:51 Unknown WBC RBC Hgb Hct MCV MCH MCHC RDW Plt Count Lymph # Seg Neutrophils % Seg Neuts % (Manual) Lymphocytes % (Manual) Monocytes % (Manual) Eosinophils % (Manual) Basophils % (Manual) Nucleated RBC % Seg Neutrophils # Man Lymphocytes # (Manual) Monocytes # (Manual) PT INR APTT Fibrinogen D-Dimer POC ABG pH ABG pH POC ABG pCO2 POC ABG pO2 ABG pO2 ABG Hemoglobin Oxyhemoglobin Sodium Potassium Chloride Carbon Dioxide BUN 26 H Creatinine 4.1 H Glucose 128 H POC Glucose 160 H 122 H Lactic Acid Calcium 7.0 L Phosphorus Iron TIBC Ferritin Total Bilirubin Direct Bilirubin AST ALT Total Protein Albumin Lipase Vitamin B12 Urine WBC (Auto) Plasma/Serum Alcohol Crossmatch 03/12/19 03/13/19 03/13/19 Unknown 03:45 04:11 WBC 4.2 L RBC 2.09 L Hgb 6.8 L Hct 19.6 L* MCV MCH 33 H MCHC 35 H RDW 20.2 H Plt Count 44 L Lymph # Seg Neutrophils % Seg Neuts % (Manual) Lymphocytes % (Manual) 7.0 L Monocytes % (Manual) 32.0 H Eosinophils % (Manual) 5.0 H Basophils % (Manual) 2.0 H Nucleated RBC % 12.0 H Seg Neutrophils # Man 0.0 L Lymphocytes # (Manual) 0.0 L Monocytes # (Manual) PT INR APTT Fibrinogen D-Dimer POC ABG pH ABG pH POC ABG pCO2 POC ABG pO2 ABG pO2 62.5 L ABG Hemoglobin 7.6 L Oxyhemoglobin 92.3 L Sodium Potassium Chloride Carbon Dioxide BUN Creatinine Glucose POC Glucose Lactic Acid Calcium Phosphorus Iron TIBC Ferritin Total Bilirubin 8.90 H Direct Bilirubin 7.4 H AST 2116 H ALT 767 H Total Protein 5.1 L Albumin 2.3 L Lipase Vitamin B12 Urine WBC (Auto) Plasma/Serum Alcohol Crossmatch 03/13/19 03/13/19 03/13/19 04:11 08:04 12:04 WBC RBC Hgb 7.0 L Hct 20.0 L MCV MCH MCHC RDW Plt Count Lymph # Seg Neutrophils % Seg Neuts % (Manual) Lymphocytes % (Manual) Monocytes % (Manual) Eosinophils % (Manual) Basophils % (Manual) Nucleated RBC % Seg Neutrophils # Man Lymphocytes # (Manual) Monocytes # (Manual) PT INR APTT Fibrinogen D-Dimer POC ABG pH ABG pH POC ABG pCO2 POC ABG pO2 ABG pO2 ABG Hemoglobin Oxyhemoglobin Sodium Potassium 3.0 L Chloride Carbon Dioxide BUN 27 H Creatinine 3.7 H Glucose POC Glucose 114 H Lactic Acid Calcium 6.3 L Phosphorus Iron TIBC Ferritin Total Bilirubin Direct Bilirubin AST ALT Total Protein Albumin Lipase Vitamin B12 Urine WBC (Auto) Plasma/Serum Alcohol Crossmatch 03/13/19 03/13/19 03/14/19 17:05 21:23 00:00 WBC RBC Hgb Hct MCV MCH MCHC RDW Plt Count Lymph # Seg Neutrophils % Seg Neuts % (Manual) Lymphocytes % (Manual) Monocytes % (Manual) Eosinophils % (Manual) Basophils % (Manual) Nucleated RBC % Seg Neutrophils # Man Lymphocytes # (Manual) Monocytes # (Manual) PT INR APTT Fibrinogen D-Dimer POC ABG pH ABG pH POC ABG pCO2 POC ABG pO2 ABG pO2 ABG Hemoglobin Oxyhemoglobin Sodium Potassium Chloride Carbon Dioxide BUN Creatinine Glucose POC Glucose 111 H 145 H 173 H Lactic Acid Calcium Phosphorus Iron TIBC Ferritin Total Bilirubin Direct Bilirubin AST ALT Total Protein Albumin Lipase Vitamin B12 Urine WBC (Auto) Plasma/Serum Alcohol Crossmatch 03/14/19 03/14/19 03/14/19 04:10 05:25 05:25 WBC 4.2 L RBC 2.20 L Hgb 7.3 L Hct 21.0 L MCV 96 H MCH 33 H MCHC 35 H RDW 20.1 H Plt Count 65 L Lymph # Seg Neutrophils % Seg Neuts % (Manual) Lymphocytes % (Manual) 6.0 L Monocytes % (Manual) 18 H Eosinophils % (Manual) Basophils % (Manual) Nucleated RBC % Seg Neutrophils # Man Lymphocytes # (Manual) 0.3 L Monocytes # (Manual) PT INR APTT Fibrinogen D-Dimer POC ABG pH ABG pH POC ABG pCO2 POC ABG pO2 ABG pO2 ABG Hemoglobin Oxyhemoglobin Sodium Potassium Chloride 108.2 H Carbon Dioxide BUN 28 H Creatinine 2.4 H Glucose 179 H POC Glucose 185 H Lactic Acid Calcium 6.5 L Phosphorus Iron TIBC Ferritin Total Bilirubin 9.00 H Direct Bilirubin AST 321 H ALT 341 H Total Protein 5.2 L Albumin 2.2 L Lipase Vitamin B12 Urine WBC (Auto) Plasma/Serum Alcohol Crossmatch 03/14/19 03/14/19 03/14/19 07:34 12:05 16:02 WBC RBC Hgb Hct MCV MCH MCHC RDW Plt Count Lymph # Seg Neutrophils % Seg Neuts % (Manual) Lymphocytes % (Manual) Monocytes % (Manual) Eosinophils % (Manual) Basophils % (Manual) Nucleated RBC % Seg Neutrophils # Man Lymphocytes # (Manual) Monocytes # (Manual) PT INR APTT Fibrinogen D-Dimer POC ABG pH ABG pH POC ABG pCO2 POC ABG pO2 ABG pO2 ABG Hemoglobin Oxyhemoglobin Sodium Potassium Chloride Carbon Dioxide BUN Creatinine Glucose POC Glucose 190 H 177 H 140 H Lactic Acid Calcium Phosphorus Iron TIBC Ferritin Total Bilirubin Direct Bilirubin AST ALT Total Protein Albumin Lipase Vitamin B12 Urine WBC (Auto) Plasma/Serum Alcohol Crossmatch 03/14/19 03/14/19 03/14/19 20:13 23:28 Unknown WBC RBC Hgb Hct MCV MCH MCHC RDW Plt Count Lymph # Seg Neutrophils % Seg Neuts % (Manual) Lymphocytes % (Manual) Monocytes % (Manual) Eosinophils % (Manual) Basophils % (Manual) Nucleated RBC % Seg Neutrophils # Man Lymphocytes # (Manual) Monocytes # (Manual) PT INR APTT Fibrinogen D-Dimer POC ABG pH ABG pH POC ABG pCO2 POC ABG pO2 ABG pO2 102.3 H ABG Hemoglobin 9.6 L Oxyhemoglobin 94.9 L Sodium Potassium Chloride Carbon Dioxide BUN Creatinine Glucose POC Glucose 145 H 140 H Lactic Acid Calcium Phosphorus Iron TIBC Ferritin Total Bilirubin Direct Bilirubin AST ALT Total Protein Albumin Lipase Vitamin B12 Urine WBC (Auto) Plasma/Serum Alcohol Crossmatch 03/15/19 03/15/19 03/15/19 01:00 04:08 04:45 WBC RBC Hgb Hct MCV MCH MCHC RDW Plt Count Lymph # Seg Neutrophils % Seg Neuts % (Manual) Lymphocytes % (Manual) Monocytes % (Manual) Eosinophils % (Manual) Basophils % (Manual) Nucleated RBC % Seg Neutrophils # Man Lymphocytes # (Manual) Monocytes # (Manual) PT 18.5 H INR 1.58 H APTT Fibrinogen D-Dimer POC ABG pH 7.574 H ABG pH POC ABG pCO2 POC ABG pO2 123 H ABG pO2 ABG Hemoglobin Oxyhemoglobin Sodium Potassium Chloride Carbon Dioxide BUN Creatinine Glucose POC Glucose 136 H Lactic Acid Calcium Phosphorus Iron TIBC Ferritin Total Bilirubin Direct Bilirubin AST ALT Total Protein Albumin Lipase Vitamin B12 Urine WBC (Auto) Plasma/Serum Alcohol Crossmatch 03/15/19 03/15/19 03/15/19 04:50 04:50 04:50 WBC RBC 2.30 L Hgb 7.6 L Hct 22.2 L MCV 97 H MCH 33 H MCHC RDW 22.5 H Plt Count 109 L Lymph # Seg Neutrophils % Seg Neuts % (Manual) 87.0 H Lymphocytes % (Manual) 6.0 L Monocytes % (Manual) Eosinophils % (Manual) Basophils % (Manual) Nucleated RBC % 1.0 H Seg Neutrophils # Man 8.4 H Lymphocytes # (Manual) 0.6 L Monocytes # (Manual) PT INR APTT Fibrinogen D-Dimer POC ABG pH ABG pH POC ABG pCO2 POC ABG pO2 ABG pO2 ABG Hemoglobin Oxyhemoglobin Sodium Potassium Chloride Carbon Dioxide BUN Creatinine Glucose POC Glucose Lactic Acid Calcium Phosphorus Iron TIBC Ferritin 4122.0 H Total Bilirubin Direct Bilirubin AST ALT Total Protein Albumin Lipase Vitamin B12 > 2000 H Urine WBC (Auto) Plasma/Serum Alcohol Crossmatch 03/15/19 03/15/19 03/15/19 04:50 08:22 11:41 WBC RBC Hgb Hct MCV MCH MCHC RDW Plt Count Lymph # Seg Neutrophils % Seg Neuts % (Manual) Lymphocytes % (Manual) Monocytes % (Manual) Eosinophils % (Manual) Basophils % (Manual) Nucleated RBC % Seg Neutrophils # Man Lymphocytes # (Manual) Monocytes # (Manual) PT INR APTT Fibrinogen D-Dimer POC ABG pH ABG pH POC ABG pCO2 POC ABG pO2 ABG pO2 ABG Hemoglobin Oxyhemoglobin Sodium 146 H Potassium 3.5 L Chloride 109.7 H Carbon Dioxide BUN 29 H Creatinine 1.8 H Glucose 134 H POC Glucose 132 H 122 H Lactic Acid Calcium 6.7 L Phosphorus Iron TIBC Ferritin Total Bilirubin 8.00 H Direct Bilirubin AST 204 H ALT 272 H Total Protein 5.4 L Albumin 2.6 L Lipase Vitamin B12 Urine WBC (Auto) Plasma/Serum Alcohol Crossmatch 03/15/19 03/15/19 03/15/19 12:22 19:55 23:13 WBC RBC Hgb Hct MCV MCH MCHC RDW Plt Count Lymph # Seg Neutrophils % Seg Neuts % (Manual) Lymphocytes % (Manual) Monocytes % (Manual) Eosinophils % (Manual) Basophils % (Manual) Nucleated RBC % Seg Neutrophils # Man Lymphocytes # (Manual) Monocytes # (Manual) PT INR APTT Fibrinogen D-Dimer POC ABG pH ABG pH POC ABG pCO2 POC ABG pO2 ABG pO2 ABG Hemoglobin Oxyhemoglobin Sodium Potassium Chloride Carbon Dioxide BUN Creatinine Glucose POC Glucose 115 H 107 H 133 H Lactic Acid Calcium Phosphorus Iron TIBC Ferritin Total Bilirubin Direct Bilirubin AST ALT Total Protein Albumin Lipase Vitamin B12 Urine WBC (Auto) Plasma/Serum Alcohol Crossmatch 03/16/19 03/16/19 03/16/19 03:00 06:00 06:00 WBC 16.1 H RBC 2.55 L Hgb 8.4 L Hct 25.2 L MCV 99 H MCH 33 H MCHC RDW 23.7 H Plt Count 123 L Lymph # Seg Neutrophils % Seg Neuts % (Manual) 92.0 H Lymphocytes % (Manual) 5.0 L Monocytes % (Manual) Eosinophils % (Manual) Basophils % (Manual) Nucleated RBC % 4.0 H Seg Neutrophils # Man 14.8 H Lymphocytes # (Manual) 0.8 L Monocytes # (Manual) PT INR APTT Fibrinogen D-Dimer POC ABG pH ABG pH POC ABG pCO2 POC ABG pO2 ABG pO2 ABG Hemoglobin Oxyhemoglobin Sodium 147 H Potassium 3.4 L Chloride 108.7 H Carbon Dioxide BUN 29 H Creatinine Glucose 114 H POC Glucose 135 H Lactic Acid Calcium 7.2 L Phosphorus Iron TIBC Ferritin Total Bilirubin 9.90 H Direct Bilirubin AST 271 H ALT 268 H Total Protein 6.1 L Albumin 2.8 L Lipase Vitamin B12 Urine WBC (Auto) Plasma/Serum Alcohol Crossmatch 03/16/19 03/16/19 06:00 10:08 WBC RBC Hgb Hct MCV MCH MCHC RDW Plt Count Lymph # Seg Neutrophils % Seg Neuts % (Manual) Lymphocytes % (Manual) Monocytes % (Manual) Eosinophils % (Manual) Basophils % (Manual) Nucleated RBC % Seg Neutrophils # Man Lymphocytes # (Manual) Monocytes # (Manual) PT INR APTT Fibrinogen D-Dimer POC ABG pH ABG pH 7.469 H POC ABG pCO2 POC ABG pO2 ABG pO2 70.7 L 75.8 L ABG Hemoglobin 7.9 L 7.9 L Oxyhemoglobin 93.2 L 94.5 L Sodium Potassium Chloride Carbon Dioxide BUN Creatinine Glucose POC Glucose Lactic Acid Calcium Phosphorus Iron TIBC Ferritin Total Bilirubin Direct Bilirubin AST ALT Total Protein Albumin Lipase Vitamin B12 Urine WBC (Auto) Plasma/Serum Alcohol Crossmatch Chest x-ray: image reviewed (significant improvement in pulmonary edema) Allied health notes reviewed: nursing
--- NOTE | 2019-03-16 14:24 | Progress Note ---
Assessment and Plan 1. Variceal bleed - s/p banding. No evidence of ongoing GI bleed. - will need to f/u as outpatient to do surveillance EGD and decide re: B- blockers. 2. Alcoholic hepatitis/cirrhosis - very ill. LFTs were better, though slight bump today, possibly related to volume changes with ultrafiltration yesterday. INR improved. Renal failure improving. On prednisolone. - continue prednisolone for now - monitor LFTs 3. Nutrition - needs support. - now that pt extubated, will advance diet Subjective Date of service: 03/16/19 Principal diagnosis: Ac. GI bleed; hemorrhagic shock; Ac. hypoxemic resp failure; ADRIANNE likley ATN Interval history: Pt extubated. Complains of back pain. No abd pain, N/V. Objective - Constitutional Vitals: Vital Signs - 12hr 03/16/19 03/16/19 03/16/19 02:31 02:45 03:00 Temperature Pulse Rate 113 H 69 73 Pulse Rate [ From Monitor] Pulse Rate [ Left Dorsalis Pedis] Pulse Rate [ Right Dorsalis Pedis] Respiratory 17 16 14 Rate Blood Pressure 128/89 131/79 138/84 O2 Sat by Pulse 99 96 97 Oximetry 03/16/19 03/16/19 03/16/19 03:03 03:15 03:30 Temperature 98.3 F Pulse Rate 73 100 H Pulse Rate [ From Monitor] Pulse Rate [ Left Dorsalis Pedis] Pulse Rate [ Right Dorsalis Pedis] Respiratory 15 24 Rate Blood Pressure 135/84 150/93 O2 Sat by Pulse 98 93 Oximetry 03/16/19 03/16/19 03/16/19 03:45 03:51 04:00 Temperature Pulse Rate 78 72 Pulse Rate [ 73 From Monitor] Pulse Rate [ 81 Left Dorsalis Pedis] Pulse Rate [ 81 Right Dorsalis Pedis] Respiratory 17 16 16 Rate Blood Pressure 131/87 123/79 O2 Sat by Pulse 93 97 96 Oximetry 03/16/19 03/16/19 03/16/19 04:15 04:30 04:45 Temperature Pulse Rate 69 74 69 Pulse Rate [ From Monitor] Pulse Rate [ Left Dorsalis Pedis] Pulse Rate [ Right Dorsalis Pedis] Respiratory 15 15 16 Rate Blood Pressure 126/84 133/84 129/82 O2 Sat by Pulse 96 96 Oximetry 03/16/19 03/16/19 03/16/19 05:00 05:15 05:30 Temperature Pulse Rate 76 99 H 78 Pulse Rate [ From Monitor] Pulse Rate [ Left Dorsalis Pedis] Pulse Rate [ Right Dorsalis Pedis] Respiratory 15 31 H 16 Rate Blood Pressure 138/88 155/102 132/87 O2 Sat by Pulse 98 90 91 Oximetry 03/16/19 03/16/19 03/16/19 05:45 05:46 06:01 Temperature Pulse Rate 72 72 74 Pulse Rate [ From Monitor] Pulse Rate [ Left Dorsalis Pedis] Pulse Rate [ Right Dorsalis Pedis] Respiratory 16 15 Rate Blood Pressure 127/83 127/83 127/83 O2 Sat by Pulse 92 93 94 Oximetry 03/16/19 03/16/19 03/16/19 06:15 06:31 06:45 Temperature Pulse Rate 70 98 H 93 H Pulse Rate [ From Monitor] Pulse Rate [ Left Dorsalis Pedis] Pulse Rate [ Right Dorsalis Pedis] Respiratory 15 23 18 Rate Blood Pressure 119/79 140/85 133/82 O2 Sat by Pulse 97 95 92 Oximetry 03/16/19 03/16/19 03/16/19 07:00 07:15 07:31 Temperature Pulse Rate 77 84 89 Pulse Rate [ From Monitor] Pulse Rate [ Left Dorsalis Pedis] Pulse Rate [ Right Dorsalis Pedis] Respiratory 13 17 19 Rate Blood Pressure 130/86 141/91 87/56 O2 Sat by Pulse 95 94 93 Oximetry 03/16/19 03/16/19 03/16/19 07:45 08:00 08:15 Temperature 97.5 F L Pulse Rate 73 71 77 Pulse Rate [ 71 From Monitor] Pulse Rate [ Left Dorsalis Pedis] Pulse Rate [ Right Dorsalis Pedis] Respiratory 13 13 20 Rate Blood Pressure 128/83 138/89 126/79 O2 Sat by Pulse 96 95 Oximetry 03/16/19 03/16/19 03/16/19 08:16 08:25 08:30 Temperature 97.5 F L Pulse Rate 67 Pulse Rate [ From Monitor] Pulse Rate [ Left Dorsalis Pedis] Pulse Rate [ Right Dorsalis Pedis] Respiratory 23 14 Rate Blood Pressure 120/80 O2 Sat by Pulse 95 Oximetry 03/16/19 03/16/19 03/16/19 09:00 09:16 10:00 Temperature Pulse Rate 67 73 Pulse Rate [ From Monitor] Pulse Rate [ Left Dorsalis Pedis] Pulse Rate [ Right Dorsalis Pedis] Respiratory 12 14 13 Rate Blood Pressure 124/82 134/85 O2 Sat by Pulse 97 98 Oximetry 03/16/19 03/16/19 03/16/19 11:10 11:35 12:00 Temperature 98.1 F 98.1 F Pulse Rate 79 84 Pulse Rate [ 75 From Monitor] Pulse Rate [ Left Dorsalis Pedis] Pulse Rate [ Right Dorsalis Pedis] Respiratory 14 13 Rate Blood Pressure 134/88 O2 Sat by Pulse 94 95 Oximetry 03/16/19 03/16/19 12:44 13:00 Temperature Pulse Rate 85 Pulse Rate [ From Monitor] Pulse Rate [ Left Dorsalis Pedis] Pulse Rate [ Right Dorsalis Pedis] Respiratory 16 Rate Blood Pressure 146/87 O2 Sat by Pulse 97 99 Oximetry General appearance: Present: no acute distress, other (subconjuctival hemorrhages) - EENT Eyes: scleral icterus ENT: hearing intact - Respiratory Respiratory effort: normal - Gastrointestinal General gastrointestinal: Present: soft, non-tender - Labs CBC & Chem 7: 03/16/19 06:00 03/16/19 06:00 Labs: Abnormal lab results 03/15/19 03/15/19 03/16/19 Range/Units 19:55 23:13 03:00 WBC (4.5-11.0) K/mm3 RBC (3.65-5.03) M/mm3 Hgb (11.8-15.2) gm/dl Hct (35.5-45.6) % MCV (84-94) fl MCH (28-32) pg RDW (13.2-15.2) % Plt Count (140-440) K/mm3 Seg Neuts % (Manual) (40.0-70.0) % Lymphocytes % (Manual) (13.4-35.0) % Nucleated RBC % (0.0-0.9) % Seg Neutrophils # Man (1.8-7.7) K/mm3 Lymphocytes # (Manual) (1.2-5.4) K/mm3 ABG pH (7.350-7.450) pH Units ABG pO2 (80.0-90.0) mm Hg ABG Hemoglobin (14.0-18.0) gm/dl Oxyhemoglobin (95.0-99.0) % Sodium (137-145) mmol/L Potassium (3.6-5.0) mmol/L Chloride (98-107) mmol/L BUN (9-20) mg/dL Glucose (75-100) mg/dL POC Glucose 107 H 133 H 135 H (70-105) Calcium (8.4-10.2) mg/dL Total Bilirubin (0.1-1.2) mg/dL AST (5-40) units/L ALT (7-56) units/L Total Protein (6.3-8.2) g/dL Albumin (3.9-5) g/dL 03/16/19 03/16/19 03/16/19 Range/Units 06:00 06:00 06:00 WBC 16.1 H (4.5-11.0) K/mm3 RBC 2.55 L (3.65-5.03) M/mm3 Hgb 8.4 L (11.8-15.2) gm/dl Hct 25.2 L (35.5-45.6) % MCV 99 H (84-94) fl MCH 33 H (28-32) pg RDW 23.7 H (13.2-15.2) % Plt Count 123 L (140-440) K/mm3 Seg Neuts % (Manual) 92.0 H (40.0-70.0) % Lymphocytes % (Manual) 5.0 L (13.4-35.0) % Nucleated RBC % 4.0 H (0.0-0.9) % Seg Neutrophils # Man 14.8 H (1.8-7.7) K/mm3 Lymphocytes # (Manual) 0.8 L (1.2-5.4) K/mm3 ABG pH (7.350-7.450) pH Units ABG pO2 70.7 L (80.0-90.0) mm Hg ABG Hemoglobin 7.9 L (14.0-18.0) gm/dl Oxyhemoglobin 93.2 L (95.0-99.0) % Sodium 147 H (137-145) mmol/L Potassium 3.4 L (3.6-5.0) mmol/L Chloride 108.7 H (98-107) mmol/L BUN 29 H (9-20) mg/dL Glucose 114 H (75-100) mg/dL POC Glucose (70-105) Calcium 7.2 L (8.4-10.2) mg/dL Total Bilirubin 9.90 H (0.1-1.2) mg/dL AST 271 H (5-40) units/L ALT 268 H (7-56) units/L Total Protein 6.1 L (6.3-8.2) g/dL Albumin 2.8 L (3.9-5) g/dL 03/16/19 Range/Units 10:08 WBC (4.5-11.0) K/mm3 RBC (3.65-5.03) M/mm3 Hgb (11.8-15.2) gm/dl Hct (35.5-45.6) % MCV (84-94) fl MCH (28-32) pg RDW (13.2-15.2) % Plt Count (140-440) K/mm3 Seg Neuts % (Manual) (40.0-70.0) % Lymphocytes % (Manual) (13.4-35.0) % Nucleated RBC % (0.0-0.9) % Seg Neutrophils # Man (1.8-7.7) K/mm3 Lymphocytes # (Manual) (1.2-5.4) K/mm3 ABG pH 7.469 H (7.350-7.450) pH Units ABG pO2 75.8 L (80.0-90.0) mm Hg ABG Hemoglobin 7.9 L (14.0-18.0) gm/dl Oxyhemoglobin 94.5 L (95.0-99.0) % Sodium (137-145) mmol/L Potassium (3.6-5.0) mmol/L Chloride (98-107) mmol/L BUN (9-20) mg/dL Glucose (75-100) mg/dL POC Glucose (70-105) Calcium (8.4-10.2) mg/dL Total Bilirubin (0.1-1.2) mg/dL AST (5-40) units/L ALT (7-56) units/L Total Protein (6.3-8.2) g/dL Albumin (3.9-5) g/dL Medications & Allergies - Medications Allergies/Adverse Reactions: Allergies No Known Allergies Allergy (Verified 03/08/19 12:31) Home Medications: Home Medications Medication Instructions Recorded Confirmed Last Taken Type No Known Home Medications [No 03/10/19 03/10/19 Unknown History Reported Home Medications] Active Medications: Generic Name Dose Route Start Last Admin Trade Name Freq PRN Reason Stop Dose Admin Acetaminophen 650 mg 03/09/19 13:00 03/12/19 06:50 Tylenol [place] 650 mg Q4H PRN Administration Pain, Mild (1-3) Albuterol 2.5 mg 03/08/19 14:56 Proventil IH Q3HRT PRN Shortness Of Breath Dextrose 50 ml 03/09/19 01:34 D50w (25gm) Syringe IV PRN PRN Hypoglycemia Hydrophilic Ointment 1 applic 03/08/19 22:51 Vaseline Lip Therapy TP Q2HR PRN Dry Lips Sodium Chloride 100 mls @ 999 mls/hr 03/13/19 13:20 Nacl 0.9% IV JULIO CESAR PRN Hypotension Sodium Chloride 100 mls @ 999 mls/hr 03/15/19 17:08 Nacl 0.9% IV JULIO CESAR PRN Hypotension Amino Acids/Electrolytes/Dextrose 2,016 mls @ 84 mls/hr 03/16/19 20:00 Tpn Adult IV 03/17/19 19:59 DAILY@2000 [facility] Protocol Lorazepam 2 mg 03/08/19 14:57 03/15/19 00:15 Ativan IV 2 mg Q1HR PRN Administration CIWA-Ar 8-15 Methylprednisolone Sodium Succinate 40 mg 03/13/19 15:00 03/15/19 15:50 Solu-Medrol IV 40 mg Q24H CHARLIE Administration Metoclopramide HCl 5 mg 03/11/19 09:00 Reglan IV Q6H PRN Nausea And Vomiting Metoprolol Tartrate 5 mg 03/11/19 17:41 03/11/19 20:04 Lopressor IV 5 mg Q6HR PRN Administration Tachyarrhythmias Multi-Ingred Cream/Lotion/Oil/Oint 1 applic 03/08/19 22:51 Artificial Tears Ophth Oint OU Q4HR PRN Dry Eye(s) Pantoprazole Sodium 40 mg 03/12/19 22:00 03/16/19 09:18 Protonix IV 40 mg BID CHARLIE Administration Sodium Chloride 10 ml 03/08/19 22:00 03/16/19 09:18 Sodium Chloride Flush Syringe 10 Ml IV 10 ml BID CHARLIE Administration Sodium Chloride 10 ml 03/08/19 14:56 Sodium Chloride Flush Syringe 10 Ml IV PRN PRN LINE FLUSH
[2019-03-16] MEDS: SOLU-Medrol IV SCH (15:29)
[2019-03-16] MEDS ORDERED: TPN ADULT 2,016 ML IV SCH (20:00)
[2019-03-17 07:08] LABS: Hemoglobin 7.7 gm/dl (11.8-15.2); Mean Corpuscular HGB Conc 33 % (32-34); Mean Corpuscular Volume 98 fl (84-94); Platelet Count 116 K/mm3 (140-440); Red Blood Count 2.36 M/mm3 (3.65-5.03)
--- NOTE | 2019-03-17 07:09 | Hem/Onc Progress Note ---
Assessment and Plan 1. h/o Anemia. Hemoglobin was 3 secondary to gastrointestinal bleed. 2. h/o Thrombocytopenia, likely secondary to consumption and liver disease. 3. h/o Low fibrinogen and elevated PT, PTT, secondary to DIC/consumption. 4. h/o Abnormal liver function test. 5. The patient's blood pressure was low and was on pressors. 6. s/p Intubation at admission. then extubation on 03/16 7. History of cirrhosis. 8. History of alcohol usage and smoking. 9. Esophagogastroduodenoscopy showed varices, status post intervention. 10. The patient got octreotide infusion. 11. s/p cryoprecipitate as fibrinogen level is low. His LFTs are abnormal. Vitamin k may not benefit, we have option of FFPs. There is a mention of chest x-ray for monitoring TRALI. follow labs supportive care for now off vent clinically improving ptl >100 abn LFTs PT/ PTT better - Patient Problems (1) Thrombocytopenia Current Visit: Yes Status: Acute Subjective Date of service: 03/17/19 Principal diagnosis: low plt - anemia Interval history: extubated Objective - Exam Narrative Exam: Pain - none General appearance not in acute distress Performance status limited self care Eyes - icterus ENT - no bleeding LNs cervical not palpable Neck - no LN Respiratory Normal Breath sounds - decreased air entry CVS S1 S2 + Extremities normal temperature General GI Rectal deferred male - deferred Skin warm Musculoskeletal - moves limbs Neurologically awake - communicative - Constitutional Vitals: Last Vital Signs Temp 97.5 F L 03/17/19 03:53 Pulse 68 03/17/19 06:00 Resp 23 03/17/19 06:00 BP 131/82 03/17/19 06:00 Pulse Ox 93 03/17/19 06:00 - Labs Lab Results: Laboratory Results - last 24 hr 03/16/19 03/16/19 03/16/19 06:00 06:00 08:20 Add Manual Diff Complete Total Counted 100 Seg Neuts % (Manual) 92.0 H Band Neutrophils % 0 Lymphocytes % (Manual) 5.0 L Reactive Lymphs % (Man) 0 Monocytes % (Manual) 1.0 Eosinophils % (Manual) 0 Basophils % (Manual) 0 Metamyelocytes % 2.0 Myelocytes % 0 Promyelocytes % 0 Blast Cells % 0 Nucleated RBC % 4.0 H Seg Neutrophils # Man 14.8 H Band Neutrophils # 0.0 Lymphocytes # (Manual) 0.8 L Abs React Lymphs (Man) 0.0 Monocytes # (Manual) 0.2 Eosinophils # (Manual) 0.0 Basophils # (Manual) 0.0 Metamyelocytes # 0.3 Myelocytes # 0.0 Promyelocytes # 0.0 Blast Cells # 0.0 WBC Morphology Not Reportable Hypersegmented Neuts Not Reportable Hyposegmented Neuts Not Reportable Hypogranular Neuts Not Reportable Smudge Cells Not Reportable Toxic Granulation Not Reportable Toxic Vacuolation Not Reportable Dohle Bodies Not Reportable Pelger-Huet Anomaly Not Reportable Meng Rods Not Reportable Platelet Estimate Consistent w auto Clumped Platelets Not Reportable Plt Clumps, EDTA Not Reportable Large Platelets Not Reportable Giant Platelets Not Reportable Platelet Satelliting Not Reportable Plt Morphology Comment Not Reportable RBC Morphology Not Reportable Dimorphic RBCs Not Reportable Polychromasia Few Hypochromasia Not Reportable Poikilocytosis Not Reportable Anisocytosis 1+ Microcytosis Not Reportable Macrocytosis Rare Spherocytes Not Reportable Pappenheimer Bodies Not Reportable Sickle Cells Not Reportable Target Cells 1+ Tear Drop Cells Not Reportable Ovalocytes Few Helmet Cells Not Reportable Zaman-Wheatley Bodies Not Reportable [place] Rings Not Reportable Nancie Cells Not Reportable Bite Cells Not Reportable Crenated Cell Not Reportable Elliptocytes Not Reportable Acanthocytes (Spur) Not Reportable Rouleaux Not Reportable Hemoglobin C Crystals Not Reportable Schistocytes Not Reportable Malaria parasites Not Reportable Santy Bodies Not Reportable Hem Pathologist Commnt No ABG pH ABG pCO2 ABG pO2 ABG HCO3 ABG O2 Saturation ABG O2 Content ABG Base Excess ABG Hemoglobin ABG Carboxyhemoglobin ABG Methemoglobin Oxyhemoglobin FiO2 POC Glucose 105 Phosphorus 2.80 Magnesium 2.30 03/16/19 03/16/19 03/16/19 10:08 12:11 16:50 Add Manual Diff Total Counted Seg Neuts % (Manual) Band Neutrophils % Lymphocytes % (Manual) Reactive Lymphs % (Man) Monocytes % (Manual) Eosinophils % (Manual) Basophils % (Manual) Metamyelocytes % Myelocytes % Promyelocytes % Blast Cells % Nucleated RBC % Seg Neutrophils # Man Band Neutrophils # Lymphocytes # (Manual) Abs React Lymphs (Man) Monocytes # (Manual) Eosinophils # (Manual) Basophils # (Manual) Metamyelocytes # Myelocytes # Promyelocytes # Blast Cells # WBC Morphology Hypersegmented Neuts Hyposegmented Neuts Hypogranular Neuts Smudge Cells Toxic Granulation Toxic Vacuolation Dohle Bodies Pelger-Huet Anomaly Meng Rods Platelet Estimate Clumped Platelets Plt Clumps, EDTA Large Platelets Giant Platelets Platelet Satelliting Plt Morphology Comment RBC Morphology Dimorphic RBCs Polychromasia Hypochromasia Poikilocytosis Anisocytosis Microcytosis Macrocytosis Spherocytes Pappenheimer Bodies Sickle Cells Target Cells Tear Drop Cells Ovalocytes Helmet Cells Zaman-Wheatley Bodies [place] Rings [place] Cells Bite Cells Crenated Cell Elliptocytes Acanthocytes (Spur) Rouleaux Hemoglobin C Crystals Schistocytes Malaria parasites Santy Bodies Hem Pathologist Commnt ABG pH 7.469 H ABG pCO2 34.4 ABG pO2 75.8 L ABG HCO3 24.4 ABG O2 Saturation 96.9 ABG O2 Content 10.7 ABG Base Excess 0.9 ABG Hemoglobin 7.9 L ABG Carboxyhemoglobin 1.9 ABG Methemoglobin 0.6 Oxyhemoglobin 94.5 L FiO2 40 POC Glucose 91 83 Phosphorus Magnesium 03/16/19 03/16/19 03/17/19 19:58 23:55 05:09 Add Manual Diff Total Counted Seg Neuts % (Manual) Band Neutrophils % Lymphocytes % (Manual) Reactive Lymphs % (Man) Monocytes % (Manual) Eosinophils % (Manual) Basophils % (Manual) Metamyelocytes % Myelocytes % Promyelocytes % Blast Cells % Nucleated RBC % Seg Neutrophils # Man Band Neutrophils # Lymphocytes # (Manual) Abs React Lymphs (Man) Monocytes # (Manual) Eosinophils # (Manual) Basophils # (Manual) Metamyelocytes # Myelocytes # Promyelocytes # Blast Cells # WBC Morphology Hypersegmented Neuts Hyposegmented Neuts Hypogranular Neuts Smudge Cells Toxic Granulation Toxic Vacuolation Dohle Bodies Pelger-Huet Anomaly Meng Rods Platelet Estimate Clumped Platelets Plt Clumps, EDTA Large Platelets Giant Platelets Platelet Satelliting Plt Morphology Comment RBC Morphology Dimorphic RBCs Polychromasia Hypochromasia Poikilocytosis Anisocytosis Microcytosis Macrocytosis Spherocytes Pappenheimer Bodies Sickle Cells Target Cells Tear Drop Cells Ovalocytes Helmet Cells Zaman-Wheatley Bodies [place] Rings [place] Cells Bite Cells Crenated Cell Elliptocytes Acanthocytes (Spur) Rouleaux Hemoglobin C Crystals Schistocytes Malaria parasites Santy Bodies Hem Pathologist Commnt ABG pH ABG pCO2 ABG pO2 ABG HCO3 ABG O2 Saturation ABG O2 Content ABG Base Excess ABG Hemoglobin ABG Carboxyhemoglobin ABG Methemoglobin Oxyhemoglobin FiO2 POC Glucose 196 H 210 H 150 H Phosphorus Magnesium Medications & Allergies - Medications Allergies/Adverse Reactions: Allergies No Known Allergies Allergy (Verified 03/08/19 12:31) Home Medications: Home Medications Medication Instructions Recorded Confirmed Last Taken Type No Known Home Medications [No 03/10/19 03/10/19 Unknown History Reported Home Medications] Active Medications: Generic Name Dose Route Start Last Admin Trade Name Freq PRN Reason Stop Dose Admin Acetaminophen 650 mg 03/09/19 13:00 03/12/19 06:50 Tylenol [place] 650 mg Q4H PRN Administration Pain, Mild (1-3) Albuterol 2.5 mg 03/08/19 14:56 Proventil IH Q3HRT PRN Shortness Of Breath Dextrose 50 ml 03/09/19 01:34 D50w (25gm) Syringe IV PRN PRN Hypoglycemia Hydrophilic Ointment 1 applic 03/08/19 22:51 Vaseline Lip Therapy TP Q2HR PRN Dry Lips Sodium Chloride 100 mls @ 999 mls/hr 03/13/19 13:20 Nacl 0.9% IV JULIO CESAR PRN Hypotension Sodium Chloride 100 mls @ 999 mls/hr 03/15/19 17:08 Nacl 0.9% IV JULIO CESAR PRN Hypotension Amino Acids/Electrolytes/Dextrose 2,016 mls @ 84 mls/hr 03/16/19 20:00 03/16/19 20:00 Tpn Adult IV 03/17/19 19:59 84 mls/hr DAILY@2000 CHARLIE Administration Protocol Lorazepam 2 mg 03/08/19 14:57 03/15/19 00:15 Ativan IV 2 mg Q1HR PRN Administration CIWA-Ar 8-15 Methylprednisolone Sodium Succinate 40 mg 03/13/19 15:00 03/16/19 15:29 Solu-Medrol IV 40 mg Q24H CHARLIE Administration Metoclopramide HCl 5 mg 03/11/19 09:00 Reglan IV Q6H PRN Nausea And Vomiting Metoprolol Tartrate 5 mg 03/11/19 17:41 03/11/19 20:04 Lopressor IV 5 mg Q6HR PRN Administration Tachyarrhythmias Multi-Ingred Cream/Lotion/Oil/Oint 1 applic 03/08/19 22:51 Artificial Tears Ophth Oint OU Q4HR PRN Dry Eye(s) Pantoprazole Sodium 40 mg 03/12/19 22:00 03/16/19 21:51 Protonix IV 40 mg BID CHARLIE Administration Sodium Chloride 10 ml 03/08/19 22:00 03/16/19 21:52 Sodium Chloride Flush Syringe 10 Ml IV 10 ml BID CHARLIE Administration Sodium Chloride 10 ml 03/08/19 14:56 Sodium Chloride Flush Syringe 10 Ml IV PRN PRN LINE FLUSH
[2019-03-17 07:12] LABS: Red Cell Distribution Width 23.1 % (13.2-15.2)
[2019-03-17 07:27] LABS: Alanine Aminotransferase 225 units/L (7-56); Albumin 2.4 g/dL (3.9-5); BUN/Creatinine Ratio 20; Blood Urea Nitrogen 16 mg/dL (9-20); Calcium 7.3 mg/dL (8.4-10.2); Hemolysis Index 0
--- NOTE | 2019-03-17 08:51 | Progress Note ---
Assessment and Plan Assessment and plan: This is a 28 yo male with pmh of alcohol abuse presentd to the ED for an episode of hematemesis and melena . He had had another episode of hematemesis in the ED. was seen and evaluated in Ed and diagnosed with acute GI bleedd. He denies abdominal pain. Acute GI bleed due to large esophageal varices - s/p EGD by GI on 03/09, findings are following 1. A pool of blood in the fundus and cardia, not completely cleared out. 2. Blood in the distal esophagus. 3. 3-4 columns of large varices in the mid and distal esophagus. Variceal banding ligation performed with 5 bands placed successfully. 4. No obvious signs of gastric varices noted. 5. No other obvious source of bleeding noted in the stomach or the examined portion of the duodenum. -Per GI treated with PPI IV and octreotide drip x 76 hr. - s/p 4 units PRBC transfusion, cont to monitor h/h - cont ppi bid, placed on prednisone by GI Acute respiratory failure, was intubated on vent - Extubated 03/16 /Acute blood loss anemia, - Due to bleeding esophageal varises and DIC - s/p 4 units blood transfusion, monitor h/h Acute renal failure, likely ATN - nephrology consulted - renal function did not improve with iv fluid and had minimal urine outpt - started on HD since 03/11 with vascath X2 untill today - renal function now stable - monitor off HD Hypotensive due to acute blood loss vs septic shock due to aspiration PNA - s/p pressors, s/p blood transfusion, cont iv fluid - cont abx for asp PNA, so far cx negative DIC, s/p FFP and cryoprecipitate transfusion, consulted Dr Sparks - monitor PT/INR, resolved Jaundice Coagulopathy with pancytopenia, due to DIC and hepatic cirrhosis, monitor PT/INR/CBC history of alcohol abuse, placed on versad - now off Sepsis with severe lactic acidosis and leukocytosis, POA - blood Cx negative, possible aspiration PNA, cont abx per ID Hyperkalemia, resolved Hypernatremia, cont iv fluid, monitor BMP Elevated LFT, from alcoholic LD/cirrhosis, cont to trend Alcoholic hepatic cirrhosis, GI following, monitor LFT, placed on prednisone DVT Px, SCD - Patient improved, stable to transfer out of ICU to Telemetry. The high probability of a clinically significant, sudden or life threatening deterioration of the [multiple] system(s) required my full and direct attention, intervention and personal management. The aggregate critical care time was [36] minutes. This time is in addition to time spent performing reported procedures but includes the following: [x] Data Review and interpretation [x] Patient assessment and monitoring of vital signs [x] Documentation [x] Medication orders and management History Interval history: He feels better, Extubated yesterday 03/16 Hospitalist Physical - Physical exam Narrative exam: Gen: Not in acute distress, Sitting up in bed HEENT: Normocephalic, atraumatic, Eyes jaundiced,scleral hemorrhage Neck: supple, no JVD Heart: S1 and S2 reg, no murmurs, rubs or gallop Lungs: Clear to auscultation, no rhonchi, no wheeze Abd: soft, non tender, non distended, normal BS, Ext: No edema, no clubbing, no cyanosis Neuro: Awake,alert,oriented X 3, follows commands,moves all ext - Constitutional Vitals: Temp Pulse Resp BP Pulse Ox 99.5 F 67 18 144/81 94 03/17/19 08:00 03/17/19 08:00 03/17/19 08:00 03/17/19 08:00 03/17/19 08:26 General appearance: Present: no acute distress, other (intubated.) Results - Labs CBC & Chem 7: 03/17/19 06:30 03/17/19 06:30 Labs: Laboratory Last Values WBC 15.3 K/mm3 (4.5-11.0) H 03/17/19 06:30 RBC 2.36 M/mm3 (3.65-5.03) L 03/17/19 06:30 Hgb 7.7 gm/dl (11.8-15.2) L 03/17/19 06:30 Hct 23.0 % (35.5-45.6) L 03/17/19 06:30 MCV 98 fl (84-94) H 03/17/19 06:30 MCH 33 pg (28-32) H 03/17/19 06:30 MCHC 33 % (32-34) 03/17/19 06:30 RDW 23.1 % (13.2-15.2) H 03/17/19 06:30 Plt Count 116 K/mm3 (140-440) L 03/17/19 06:30 Lymph % (Auto) 17.4 % (13.4-35.0) 03/11/19 04:15 [place] % (Auto) Squaring Machine Operator 03/15/19 04:50 Eos % (Auto) 2.7 % (0.0-4.3) 03/11/19 04:15 Baso % (Auto) 0.7 % (0.0-1.8) 03/11/19 04:15 Lymph # 1.1 K/mm3 (1.2-5.4) L 03/11/19 04:15 [place] # 0.4 K/mm3 (0.0-0.8) 03/11/19 04:15 Eos # 0.2 K/mm3 (0.0-0.4) 03/11/19 04:15 Baso # 0.0 K/mm3 (0.0-0.1) 03/11/19 04:15 Add Manual Diff Complete 03/16/19 06:00 Total Counted 100 03/16/19 06:00 Seg Neutrophils % 72.7 % (40.0-70.0) H 03/11/19 04:15 Seg Neuts % (Manual) 92.0 % (40.0-70.0) H 03/16/19 06:00 0 % 03/16/19 06:00 5.0 % (13.4-35.0) L 03/16/19 06:00 Reactive Lymphs % (Man) 0 % 03/16/19 06:00 1.0 % (0.0-7.3) 03/16/19 06:00 0 % (0.0-4.3) 03/16/19 06:00 0 % (0.0-1.8) 03/16/19 06:00 2.0 % 03/16/19 06:00 0 % 03/16/19 06:00 0 % 03/16/19 06:00 0 % 03/16/19 06:00 Nucleated RBC % 4.0 % (0.0-0.9) H 03/16/19 06:00 Seg Neutrophils # 4.4 K/mm3 (1.8-7.7) 03/11/19 04:15 Seg Neutrophils # Man 14.8 K/mm3 (1.8-7.7) H 03/16/19 06:00 Band Neutrophils # 0.0 K/mm3 03/16/19 06:00 0.8 K/mm3 (1.2-5.4) L 03/16/19 06:00 Abs React Lymphs (Man) 0.0 K/mm3 03/16/19 06:00 0.2 K/mm3 (0.0-0.8) 03/16/19 06:00 0.0 K/mm3 (0.0-0.4) 03/16/19 06:00 0.0 K/mm3 (0.0-0.1) 03/16/19 06:00 0.3 K/mm3 03/16/19 06:00 0.0 K/mm3 03/16/19 06:00 0.0 K/mm3 03/16/19 06:00 Blast Cells # 0.0 K/mm3 03/16/19 06:00 Pathologist Review 03/10/19 03:36 WBC Morphology Not Reportable 03/16/19 06:00 Hypersegmented Neuts Not Reportable 03/16/19 06:00 Hyposegmented Neuts Not Reportable 03/16/19 06:00 Hypogranular Neuts Not Reportable 03/16/19 06:00 Not Reportable 03/16/19 06:00 Not Reportable 03/16/19 06:00 Not Reportable 03/16/19 06:00 Not Reportable 03/16/19 06:00 Not Reportable 03/16/19 06:00 Not Reportable 03/16/19 06:00 Consistent w auto 03/16/19 06:00 Not Reportable 03/16/19 06:00 Plt Clumps, EDTA Not Reportable 03/16/19 06:00 Not Reportable 03/16/19 06:00 Not Reportable 03/16/19 06:00 Not Reportable 03/16/19 06:00 Plt Morphology Comment Not Reportable 03/16/19 06:00 RBC Morphology Not Reportable 03/16/19 06:00 Dimorphic RBCs Not Reportable 03/16/19 06:00 Few 03/16/19 06:00 Not Reportable 03/16/19 06:00 Not Reportable 03/16/19 06:00 1+ 03/16/19 06:00 Not Reportable 03/16/19 06:00 Rare 03/16/19 06:00 Not Reportable 03/16/19 06:00 Not Reportable 03/16/19 06:00 Not Reportable 03/16/19 06:00 1+ 03/16/19 06:00 Not Reportable 03/16/19 06:00 Few 03/16/19 06:00 Rare 03/14/19 05:25 Not Reportable 03/16/19 06:00 Not Reportable 03/16/19 06:00 Not Reportable 03/16/19 06:00 Not Reportable 03/16/19 06:00 Not Reportable 03/16/19 06:00 Not Reportable 03/16/19 06:00 Not Reportable 03/16/19 06:00 Acanthocytes (Spur) Not Reportable 03/16/19 06:00 Rouleaux Not Reportable 03/16/19 06:00 Not Reportable 03/16/19 06:00 Not Reportable 03/16/19 06:00 Not Reportable 03/16/19 06:00 Not Reportable 03/16/19 06:00 Hem Pathologist Commnt No 03/16/19 06:00 PT 18.5 Sec. (12.2-14.9) H 03/15/19 01:00 INR 1.58 (0.87-1.13) H 03/15/19 01:00 APTT 45.4 Sec. (24.2-36.6) H 03/12/19 07:40 302 mg/dl (211-480) 03/14/19 05:25 1494.02 ng/mlDDU (0-234) H 03/09/19 13:50 POC ABG pH 7.574 (7.35-7.45) H 03/15/19 04:45 ABG pH 7.469 pH Units (7.350-7.450) H 03/16/19 10:08 POC ABG pCO2 31.8 (35-45) L 03/09/19 02:02 ABG pCO2 34.4 mm Hg 03/16/19 10:08 POC ABG pO2 123 (80-105) H 03/15/19 04:45 ABG pO2 75.8 mm Hg (80.0-90.0) L 03/16/19 10:08 POC ABG HCO3 25.1 (22-26 mml/L) 03/15/19 04:45 ABG HCO3 24.4 mmol/L (20.0-26.0) 03/16/19 10:08 POC ABG Total CO2 26 (23-27mmol/L) 03/15/19 04:45 POC ABG O2 Sat 99 03/15/19 04:45 ABG O2 Saturation 96.9 % (95.0-99.0) 03/16/19 10:08 ABG O2 Content 10.7 (0.0-44) 03/16/19 10:08 POC ABG Base Excess 3 ((-2) - (+3)mmol/L) 03/15/19 04:45 ABG Base Excess 0.9 mmol/L (-2.0-3.0) 03/16/19 10:08 ABG Hemoglobin 7.9 gm/dl (14.0-18.0) L 03/16/19 10:08 ABG Carboxyhemoglobin 1.9 % (0.0-5.0) 03/16/19 10:08 ABG Methemoglobin 0.6 % (0.0-1.5) 03/16/19 10:08 94.5 % (95.0-99.0) L 03/16/19 10:08 40 % 03/16/19 10:08 Sodium 140 mmol/L (137-145) 03/17/19 06:30 Potassium 3.0 mmol/L (3.6-5.0) L 03/17/19 06:30 Chloride 103.6 mmol/L (98-107) 03/17/19 06:30 Carbon Dioxide 25 mmol/L (22-30) 03/17/19 06:30 14 mmol/L 03/17/19 06:30 BUN 16 mg/dL (9-20) 03/17/19 06:30 0.8 mg/dL (0.8-1.5) 03/17/19 06:30 Estimated GFR > 60 ml/min 03/17/19 06:30 20 % 03/17/19 06:30 Glucose 128 mg/dL (75-100) H 03/17/19 06:30 POC Glucose 152 (70-105) H 03/17/19 08:45 Lactic Acid 19.10 mmol/L (0.7-2.0) H* 03/09/19 07:48 Calcium 7.3 mg/dL (8.4-10.2) L 03/17/19 06:30 Phosphorus 2.80 mg/dL (2.5-4.5) 03/16/19 06:00 Magnesium 2.30 mg/dL (1.7-2.3) 03/16/19 06:00 Iron 208 ug/dL (49-181) H 03/09/19 02:30 TIBC 185 mcg/dL (250-450) L 03/09/19 02:30 4122.0 ng/mL (13.0-400.0) H 03/15/19 04:50 9.20 mg/dL (0.1-1.2) H 03/17/19 06:30 7.4 mg/dL (0-0.2) H 03/12/19 Unknown 1.5 mg/dL 03/12/19 Unknown AST 214 units/L (5-40) H 03/17/19 06:30 ALT 225 units/L (7-56) H 03/17/19 06:30 104 units/L (35-129) 03/17/19 06:30 41.0 umol/L (25-60) 03/12/19 Unknown 5.8 g/dL (6.3-8.2) L 03/17/19 06:30 2.4 g/dL (3.9-5) L 03/17/19 06:30 0.7 % 03/17/19 06:30 385 units/L (13-60) H 03/09/19 Unknown Vitamin B12 > 2000 pg/mL (211-911) H 03/15/19 04:50 Rosa (Yellow) 03/08/19 14:21 Cloudy (Clear) 03/08/19 14:21 5.0 (5.0-7.0) 03/08/19 14:21 Ur Specific [place] 1.015 (1.003-1.030) 03/08/19 14:21 >500 mg/dL (Negative) 03/08/19 14:21 50 mg/dL (Negative) 03/08/19 14:21 20 mg/dL (Negative) 03/08/19 14:21 Sm (Negative) 03/08/19 14:21 Neg (Negative) 03/08/19 14:21 Sm (Negative) 03/08/19 14:21 Positive (Negative) 03/08/19 14:21 4.0 mg/dL (<2.0) 03/08/19 14:21 Ur Leukocyte Esterase Neg (Negative) 03/08/19 14:21 18.0 /HPF (0.0-6.0) H 03/08/19 14:21 2.0 /HPF (0.0-6.0) 03/08/19 14:21 U Epithel Cells (Auto) 4.0 /HPF (0-13.0) 03/08/19 14:21 Few /HPF 03/08/19 14:21 Hyaline Casts 25 /LPF 03/08/19 14:21 3+ /HPF 03/08/19 14:21 Plasma/Serum Alcohol 0.34 % (0-0.07) H 03/08/19 09:34 Hepatitis A IgM Ab Non-reactive (NonReactive) 03/09/19 07:47 Hep Bs Antigen Non-reactive (Negative) 03/09/19 07:47 Hep B Core IgM Ab Non-reactive (NonReactive) 03/09/19 07:47 Non-reactive (NonReactive) 03/09/19 07:47 Flexitest 1 H 03/12/19 14:54 Blood Type AB POSITIVE 03/08/19 13:12 Antibody Screen Negative 03/08/19 13:12 Crossmatch See Detail 03/08/19 13:12 Active Medications - Current Medications Current Medications: Generic Name Dose Route Start Last Admin Trade Name Freq PRN Reason Stop Dose Admin Acetaminophen 650 mg 03/09/19 13:00 03/12/19 06:50 Tylenol [place] 650 mg Q4H PRN Administration Pain, Mild (1-3) Albuterol 2.5 mg 03/08/19 14:56 Proventil IH Q3HRT PRN Shortness Of Breath Dextrose 50 ml 03/09/19 01:34 D50w (25gm) Syringe IV PRN PRN Hypoglycemia Hydrophilic Ointment 1 applic 03/08/19 22:51 Vaseline Lip Therapy TP Q2HR PRN Dry Lips Sodium Chloride 100 mls @ 999 mls/hr 03/13/19 13:20 Nacl 0.9% IV JULIO CESAR PRN Hypotension Sodium Chloride 100 mls @ 999 mls/hr 03/15/19 17:08 Nacl 0.9% IV JULIO CESAR PRN Hypotension Amino Acids/Electrolytes/Dextrose 2,016 mls @ 84 mls/hr 03/16/19 20:00 03/16/19 20:00 Tpn Adult IV 03/17/19 19:59 84 mls/hr DAILY@2000 CHARLIE Administration Protocol Lorazepam 2 mg 03/08/19 14:57 03/15/19 00:15 Ativan IV 2 mg Q1HR PRN Administration CIWA-Ar 8-15 Methylprednisolone Sodium Succinate 40 mg 03/13/19 15:00 03/16/19 15:29 Solu-Medrol IV 40 mg Q24H CHARLIE Administration Metoclopramide HCl 5 mg 03/11/19 09:00 Reglan IV Q6H PRN Nausea And Vomiting Metoprolol Tartrate 5 mg 03/11/19 17:41 03/11/19 20:04 Lopressor IV 5 mg Q6HR PRN Administration Tachyarrhythmias Multi-Ingred Cream/Lotion/Oil/Oint 1 applic 03/08/19 22:51 Artificial Tears Ophth Oint OU Q4HR PRN Dry Eye(s) Pantoprazole Sodium 40 mg 03/17/19 10:00 Protonix PO BID CHARLIE Potassium Chloride 40 meq 03/17/19 09:00 Potassium Chloride FEEDTUBE 03/17/19 13:01 Q4H CHARLIE Potassium Chloride 40 meq 03/17/19 09:00 K-Dur PO 03/17/19 15:01 Q6H CHARLIE Sodium Chloride 10 ml 03/08/19 22:00 03/16/19 21:52 Sodium Chloride Flush Syringe 10 Ml IV 10 ml BID CHARLIE Administration Sodium Chloride 10 ml 03/08/19 14:56 Sodium Chloride Flush Syringe 10 Ml IV PRN PRN LINE FLUSH Nutrition/Malnutrition Assess - Dietary Evaluation Nutrition/Malnutrition Findings: Nutrition Notes Start: 03/09/19 08:45 Freq: Status: Active Protocol: Document 03/16/19 08:28 LM (Rec: 03/16/19 08:51 LM [id number]) Nutrition Notes Initial or Follow up Reassessment Other Pertinent Diagnosis Cirrhosis, esophageal varices, nicotine and ETOH dependance, hematemesis Current Diet NPO Labs/Tests BG 114 BUN 29 Cr 1.2 Na 147 K 3.4 Pertinent Medications Reviewed Height 5 ft 11 in Weight 87 kg [place] Body Weight (kg) 78.18 BMI 26.7 Subjective/Other Information MD consult for TPN. Burn Absent Trauma Absent #1 Nutrition Diagnosis Inadequate oral intake Diagnosis Progress(for reassessment Continues documentation) Is patient on ventilator? Yes Is Patient Ambulatory and/or Out of Bed No REE-([facility]-confined to bed) 2224.392 Calculation Used for Recommendations [facility] Additional Notes Protein: 95-159g (1.2-2g/kg) Fluids:1ml/kcal Nutrition Intervention Change Diet Order: Start TPN Nutrition Support: TPN 84 ml/hr Kcal 740 Protein (gm) 100 Carbohydrates (gm) 100 Fluid (mL) 2,016 Goal #1 Start TPN Anticipated Discharge Needs: Unable to determine at this time Additional Comments F/U for TPN start, labs
[2019-03-17] MEDS ORDERED: POTASSIUM CHLORIDE FEEDTUBE SCH (09:00)
--- NOTE | 2019-03-17 09:53 | Progress Note ---
Subjective Principal diagnosis: low plt - anemia Interval history: Patient was seen today for follow-up on multiple renal related issues Renal function normalized Events over 24 hours vitals, labs, intake and output. Medications were reviewed Allergies: Reviewed Past medical history: Reviewed Social history: Reviewed Family history: Reviewed Current medications: Reviewed Physical examination Vitals: Reviewed Gen.: No acute distress, alert HEENT: Oral mucosa moist. No icterus Neck: Supple, no JVD Chest: Clear to auscultation anteriorly and posteriorly. No wheezes Heart: Regular rate and rhythm, S1, S2 heard, no S3, S4 Abdomen: Soft, nontender. No renal bruit. No CVA tenderness. No suprapubic fullness Extremity: Dry skin, less than 1+ edema Skin: Dry skin. No purpuric rash Assessment and plan Acute renal failure: Currently in remission to monitor and follow Please monitor labs. Avoid any nephrotoxic medication Monitor electrolytes, monitor intake and output Patient did require temporary dialysis which has been discontinued His renal function is stabilized We will sign off the case tomorrow if continues to be stable We'll continue to follow and make recommendation from renal standpoint Objective - Vital Signs Vital signs: Vital Signs - 12hr 03/16/19 03/16/19 03/16/19 22:00 23:00 23:03 Temperature Pulse Rate 86 85 82 Pulse Rate [ From Monitor] Pulse Rate [ Left Dorsalis Pedis] Respiratory 26 H 13 17 Rate Blood Pressure 150/93 144/89 144/89 O2 Sat by Pulse 93 99 100 Oximetry 03/16/19 03/16/19 03/16/19 23:20 23:21 23:37 Temperature 99.6 F Pulse Rate 82 Pulse Rate [ 78 From Monitor] Pulse Rate [ 78 Left Dorsalis Pedis] Respiratory 21 Rate Blood Pressure O2 Sat by Pulse 97 Oximetry 03/17/19 03/17/19 03/17/19 00:00 01:00 02:00 Temperature Pulse Rate 87 84 82 Pulse Rate [ From Monitor] Pulse Rate [ Left Dorsalis Pedis] Respiratory 21 19 26 H Rate Blood Pressure 138/89 135/84 145/85 O2 Sat by Pulse 100 95 90 Oximetry 03/17/19 03/17/19 03/17/19 03:00 03:03 03:05 Temperature Pulse Rate 84 87 Pulse Rate [ 87 From Monitor] Pulse Rate [ 87 Left Dorsalis Pedis] Respiratory 23 26 H Rate Blood Pressure 153/86 O2 Sat by Pulse 90 98 Oximetry 03/17/19 03/17/19 03/17/19 03:53 04:00 05:00 Temperature 97.5 F L Pulse Rate 83 70 Pulse Rate [ From Monitor] Pulse Rate [ Left Dorsalis Pedis] Respiratory 23 25 H Rate Blood Pressure 160/93 140/83 O2 Sat by Pulse 92 93 Oximetry 03/17/19 03/17/19 03/17/19 06:00 07:00 08:00 Temperature 99.5 F Pulse Rate 68 68 75 Pulse Rate [ 67 From Monitor] Pulse Rate [ Left Dorsalis Pedis] Respiratory 23 21 21 Rate Blood Pressure 131/82 134/77 144/81 O2 Sat by Pulse 93 94 91 Oximetry 03/17/19 08:26 Temperature Pulse Rate Pulse Rate [ From Monitor] Pulse Rate [ Left Dorsalis Pedis] Respiratory Rate Blood Pressure O2 Sat by Pulse 94 Oximetry - Lab 03/18/19 04:06 03/18/19 04:06 Most recent lab results ABG pH 7.469 pH Units (7.350-7.450) H 03/16/19 10:08 ABG pCO2 34.4 mm Hg 03/16/19 10:08 ABG pO2 75.8 mm Hg (80.0-90.0) L 03/16/19 10:08 ABG HCO3 24.4 mmol/L (20.0-26.0) 03/16/19 10:08 ABG O2 Saturation 96.9 % (95.0-99.0) 03/16/19 10:08 Calcium 7.3 mg/dL (8.4-10.2) L 03/17/19 06:30 Phosphorus 2.80 mg/dL (2.5-4.5) 03/16/19 06:00 Magnesium 2.30 mg/dL (1.7-2.3) 03/16/19 06:00 Medications & Allergies - Medications Allergies/Adverse Reactions: Allergies No Known Allergies Allergy (Verified 03/08/19 12:31) Home Medications: Home Medications Medication Instructions Recorded Confirmed Last Taken Type No Known Home Medications [No 03/10/19 03/10/19 Unknown History Reported Home Medications] Active Medications: Generic Name Dose Route Start Last Admin Trade Name Sindy PRN Reason Stop Dose Admin Acetaminophen 650 mg 03/09/19 13:00 03/12/19 06:50 Tylenol [place] 650 mg Q4H PRN Administration Pain, Mild (1-3) Albuterol 2.5 mg 03/08/19 14:56 Proventil IH Q3HRT PRN Shortness Of Breath Dextrose 50 ml 03/09/19 01:34 D50w (25gm) Syringe IV PRN PRN Hypoglycemia Hydrophilic Ointment 1 applic 03/08/19 22:51 Vaseline Lip Therapy TP Q2HR PRN Dry Lips Sodium Chloride 100 mls @ 999 mls/hr 03/13/19 13:20 Nacl 0.9% IV JULIO CESAR PRN Hypotension Sodium Chloride 100 mls @ 999 mls/hr 03/15/19 17:08 Nacl 0.9% IV JULIO CESAR PRN Hypotension Amino Acids/Electrolytes/Dextrose 2,016 mls @ 84 mls/hr 03/16/19 20:00 03/16/19 20:00 Tpn Adult IV 03/17/19 19:59 84 mls/hr DAILY@2000 CHARLIE Administration Protocol Lorazepam 2 mg 03/08/19 14:57 03/15/19 00:15 Ativan IV 2 mg Q1HR PRN Administration CIWA-Ar 8-15 Methylprednisolone Sodium Succinate 40 mg 03/13/19 15:00 03/16/19 15:29 Solu-Medrol IV 40 mg Q24H CHARLIE Administration Metoclopramide HCl 5 mg 03/11/19 09:00 Reglan IV Q6H PRN Nausea And Vomiting Metoprolol Tartrate 5 mg 03/11/19 17:41 03/11/19 20:04 Lopressor IV 5 mg Q6HR PRN Administration Tachyarrhythmias Multi-Ingred Cream/Lotion/Oil/Oint 1 applic 03/08/19 22:51 Artificial Tears Ophth Oint OU Q4HR PRN Dry Eye(s) Pantoprazole Sodium 40 mg 03/17/19 10:00 Protonix PO BID CHARLIE Potassium Chloride 40 meq 03/17/19 09:00 Potassium Chloride PO 03/17/19 15:01 Q6H CHARLIE Sodium Chloride 10 ml 03/08/19 22:00 03/16/19 21:52 Sodium Chloride Flush Syringe 10 Ml IV 10 ml BID CHARLIE Administration Sodium Chloride 10 ml 03/08/19 14:56 Sodium Chloride Flush Syringe 10 Ml IV PRN PRN LINE FLUSH
[2019-03-17] MEDS: POTASSIUM CHLORIDE PO SCH ×2 (10:03→16:10)
[2019-03-17] MEDS: PROTONIX PO SCH ×2 (10:03→22:53)
[2019-03-17] MEDS: SODIUM CHLORIDE FLUSH SYRINGE 10 ML IV SCH ×2 (10:04→22:53)
--- NOTE | 2019-03-17 10:57 | Progress Note ---
Assessment and Plan Acute GI bleed due to large esophageal varices, with hemorrhagic shock s/p EGD by GI, Acute hypoxemic respiratory failure on MVS Possible septic shock, temperature spike Severe lactic acidosis History of alcohol abuse disorder Acute renal failure, deandre SOLORIO Hypernatremia Alcoholic hepatic cirrhosis - prn BIPAP for increased work of breathing - appreciate nephrology input; S/P UF session yesterday - advance diet per GI rec's - continue daily SAT's and SBT's as tolerated - PPI now dosed bid - continue prn metoprolol for pulse >/= 130/min - prn HD/UF per nephrology prescription and for volume control - Continue with supportive blood transfusions to keep serum Hb > 7.0 - Monitor hemodynamics closely - continue to wean FiO2 for sats > 90% at this point (Anemia improved) - continue CIWA protocol - continue to avoid nephrotoxins, adjust all medications for GFR and CRCL - SCDs for VTE prophylaxis - continue other care per attending / other consultants ... re-evaluate in am & prn Subjective Date of service: 03/17/19 Principal diagnosis: Ac. GI bleed; hemorrhagic shock; Ac. hypoxemic resp failure; ADRIANNE deandre SOLORIO Interval history: Patient is seen today for: Ac. GI bleed (esophageal varices); hemorrhagic shock; Ac. hypoxemic resp failure; Possible septic shock; Severe lactic acidosis; H/O alcohol abuse disorder; Acute renal failure, likely ATN; Hypernatremia Seen and examined at bedside; 24hour events reviewed; nursing and respiratory care staff consulted; no adverse overnight events reported to me; resting peacefully in bed; has done very well post extubation; denies N/V/F/C; remains on supplemental oxygen therapy Objective Vital Signs - 12hr 03/16/19 03/16/19 03/16/19 23:00 23:03 23:20 Temperature Pulse Rate 85 82 82 Pulse Rate [ From Monitor] Pulse Rate [ Left Dorsalis Pedis] Respiratory 13 17 Rate Blood Pressure 144/89 144/89 O2 Sat by Pulse 99 100 Oximetry 03/16/19 03/16/19 03/17/19 23:21 23:37 00:00 Temperature 99.6 F Pulse Rate 87 Pulse Rate [ 78 From Monitor] Pulse Rate [ 78 Left Dorsalis Pedis] Respiratory 21 21 Rate Blood Pressure 138/89 O2 Sat by Pulse 97 100 Oximetry 03/17/19 03/17/19 03/17/19 01:00 02:00 03:00 Temperature Pulse Rate 84 82 84 Pulse Rate [ From Monitor] Pulse Rate [ Left Dorsalis Pedis] Respiratory 19 26 H 23 Rate Blood Pressure 135/84 145/85 153/86 O2 Sat by Pulse 95 90 90 Oximetry 03/17/19 03/17/19 03/17/19 03:03 03:05 03:53 Temperature 97.5 F L Pulse Rate 87 Pulse Rate [ 87 From Monitor] Pulse Rate [ 87 Left Dorsalis Pedis] Respiratory 26 H Rate Blood Pressure O2 Sat by Pulse 98 Oximetry 03/17/19 03/17/19 03/17/19 04:00 05:00 06:00 Temperature Pulse Rate 83 70 68 Pulse Rate [ From Monitor] Pulse Rate [ Left Dorsalis Pedis] Respiratory 23 25 H 23 Rate Blood Pressure 160/93 140/83 131/82 O2 Sat by Pulse 92 93 93 Oximetry 03/17/19 03/17/19 03/17/19 07:00 08:00 08:26 Temperature 99.5 F Pulse Rate 68 75 Pulse Rate [ 67 From Monitor] Pulse Rate [ Left Dorsalis Pedis] Respiratory 21 21 Rate Blood Pressure 134/77 144/81 O2 Sat by Pulse 94 91 94 Oximetry Constitutional: no acute distress, alert, other (young AM, normocephalic with mildly increased resp effort on MVS) Eyes: injected ENT: oropharynx moist, other (extubated) Neck: supple, no lymphadenopathy, no JVD Effort: mildly labored Ascultation: Bilateral: diminished breath sounds, rhonchi (scant) Percussion: Bilateral: not dull Cardiovascular: regular rate and rhythm, other (Tachcardia, regular, S1,S2, no murmurs) Gastrointestinal: normoactive bowel sounds, soft, non-tender, non-distended Integumentary: normal Extremities: no cyanosis, pink and warm, pulses normal, no ischemia or petechiae, edema Neurologic: normal mental status, non-focal exam, pupils equal and round, CN II- XII normal, motor strength normal and Psychiatric: mood appropriate, affect normal CBC and BMP: 03/19/19 07:32 03/19/19 07:32 ABG, PT/INR, D-dimer: ABG POC ABG pH 7.574 (7.35-7.45) H 03/15/19 04:45 ABG pH 7.469 pH Units (7.350-7.450) H 03/16/19 10:08 ABG pCO2 34.4 mm Hg 03/16/19 10:08 POC ABG pO2 123 (80-105) H 03/15/19 04:45 ABG pO2 75.8 mm Hg (80.0-90.0) L 03/16/19 10:08 POC ABG HCO3 25.1 (22-26 mml/L) 03/15/19 04:45 POC ABG Total CO2 26 (23-27mmol/L) 03/15/19 04:45 POC ABG O2 Sat 99 03/15/19 04:45 ABG O2 Saturation 96.9 % (95.0-99.0) 03/16/19 10:08 PT/INR, D-dimer PT 18.5 Sec. (12.2-14.9) H 03/15/19 01:00 INR 1.58 (0.87-1.13) H 03/15/19 01:00 1494.02 ng/mlDDU (0-234) H 03/09/19 13:50 Abnormal lab findings: Abnormal Labs 03/08/19 03/08/19 03/08/19 09:34 12:57 12:59 WBC RBC 3.14 L Hgb 11.3 L Hct 33.3 L MCV 106 H MCH 36 H MCHC RDW 18.5 H Plt Count 61 L Lymph # Seg Neutrophils % Seg Neuts % (Manual) Lymphocytes % (Manual) 50.0 H Monocytes % (Manual) Eosinophils % (Manual) Basophils % (Manual) Nucleated RBC % Seg Neutrophils # Man Lymphocytes # (Manual) Monocytes # (Manual) PT 16.9 H INR 1.41 H APTT Fibrinogen D-Dimer POC ABG pH ABG pH POC ABG pCO2 POC ABG pO2 ABG pO2 ABG Hemoglobin Oxyhemoglobin Sodium Potassium Chloride Carbon Dioxide BUN Creatinine Glucose POC Glucose Lactic Acid Calcium Phosphorus Iron TIBC Ferritin Total Bilirubin Direct Bilirubin AST ALT Total Protein Albumin Lipase Vitamin B12 Urine WBC (Auto) Plasma/Serum Alcohol 0.34 H Miscellaneous Test Crossmatch 03/08/19 03/08/19 03/08/19 13:12 13:14 14:21 WBC RBC Hgb Hct MCV MCH MCHC RDW Plt Count Lymph # Seg Neutrophils % Seg Neuts % (Manual) Lymphocytes % (Manual) Monocytes % (Manual) Eosinophils % (Manual) Basophils % (Manual) Nucleated RBC % Seg Neutrophils # Man Lymphocytes # (Manual) Monocytes # (Manual) PT INR APTT Fibrinogen D-Dimer POC ABG pH ABG pH POC ABG pCO2 POC ABG pO2 ABG pO2 ABG Hemoglobin Oxyhemoglobin Sodium Potassium Chloride 89.4 L Carbon Dioxide 8 L* BUN Creatinine Glucose 74 L POC Glucose Lactic Acid Calcium Phosphorus Iron TIBC Ferritin Total Bilirubin 4.70 H Direct Bilirubin AST 611 H ALT 153 H Total Protein Albumin Lipase Vitamin B12 Urine WBC (Auto) 18.0 H Plasma/Serum Alcohol Miscellaneous Test Crossmatch See Detail 03/08/19 03/08/19 03/08/19 20:51 20:51 22:29 WBC 17.0 H RBC 2.21 L Hgb 8.0 L D Hct 26.8 L D MCV 121 H MCH 36 H MCHC 30 L RDW 20.5 H Plt Count 84 L Lymph # Seg Neutrophils % Seg Neuts % (Manual) 83.0 H Lymphocytes % (Manual) 8.0 L Monocytes % (Manual) 9.0 H Eosinophils % (Manual) Basophils % (Manual) Nucleated RBC % 1.0 H Seg Neutrophils # Man 14.1 H Lymphocytes # (Manual) Monocytes # (Manual) 1.5 H PT INR APTT Fibrinogen D-Dimer POC ABG pH ABG pH POC ABG pCO2 POC ABG pO2 ABG pO2 ABG Hemoglobin Oxyhemoglobin Sodium Potassium 7.0 H* D Chloride 90.7 L Carbon Dioxide 3 L* BUN Creatinine 1.6 H Glucose 60 L POC Glucose 48 L Lactic Acid Calcium 8.0 L Phosphorus Iron TIBC Ferritin Total Bilirubin 5.00 H Direct Bilirubin AST 1815 H ALT 399 H Total Protein Albumin 3.7 L Lipase Vitamin B12 Urine WBC (Auto) Plasma/Serum Alcohol Miscellaneous Test Crossmatch 03/08/19 03/08/19 03/08/19 22:43 23:00 23:10 WBC RBC Hgb Hct MCV MCH MCHC RDW Plt Count Lymph # Seg Neutrophils % Seg Neuts % (Manual) Lymphocytes % (Manual) Monocytes % (Manual) Eosinophils % (Manual) Basophils % (Manual) Nucleated RBC % Seg Neutrophils # Man Lymphocytes # (Manual) Monocytes # (Manual) PT INR APTT Fibrinogen D-Dimer POC ABG pH ABG pH POC ABG pCO2 POC ABG pO2 ABG pO2 ABG Hemoglobin Oxyhemoglobin Sodium Potassium 7.9 H* Chloride 86.4 L Carbon Dioxide 9 L* BUN Creatinine 1.7 H Glucose 314 H POC Glucose Lactic Acid 23.50 H* Calcium Phosphorus 8.60 H Iron TIBC Ferritin Total Bilirubin Direct Bilirubin AST ALT Total Protein Albumin Lipase Vitamin B12 Urine WBC (Auto) Plasma/Serum Alcohol Miscellaneous Test Crossmatch 03/08/19 03/09/19 03/09/19 23:50 00:00 00:31 WBC RBC Hgb Hct MCV MCH MCHC RDW Plt Count Lymph # Seg Neutrophils % Seg Neuts % (Manual) Lymphocytes % (Manual) Monocytes % (Manual) Eosinophils % (Manual) Basophils % (Manual) Nucleated RBC % Seg Neutrophils # Man Lymphocytes # (Manual) Monocytes # (Manual) PT INR APTT Fibrinogen D-Dimer POC ABG pH 7.120 L ABG pH POC ABG pCO2 30.7 L POC ABG pO2 130 H ABG pO2 ABG Hemoglobin Oxyhemoglobin Sodium Potassium 6.3 H* D Chloride 93.7 L Carbon Dioxide 11 L BUN 21 H Creatinine 1.7 H Glucose 219 H POC Glucose 206 H Lactic Acid Calcium 8.2 L Phosphorus Iron TIBC Ferritin Total Bilirubin Direct Bilirubin AST ALT Total Protein Albumin Lipase Vitamin B12 Urine WBC (Auto) Plasma/Serum Alcohol Miscellaneous Test Crossmatch 03/09/19 03/09/19 03/09/19 00:47 01:45 02:02 WBC RBC 1.72 L Hgb 6.3 L Hct 20.0 L D MCV 117 H MCH 37 H MCHC 31 L RDW 20.9 H Plt Count 62 L Lymph # Seg Neutrophils % Seg Neuts % (Manual) 93.0 H Lymphocytes % (Manual) 6.0 L Monocytes % (Manual) Eosinophils % (Manual) Basophils % (Manual) Nucleated RBC % 1.0 H Seg Neutrophils # Man 9.6 H Lymphocytes # (Manual) 0.6 L Monocytes # (Manual) PT INR APTT Fibrinogen D-Dimer POC ABG pH ABG pH POC ABG pCO2 31.8 L POC ABG pO2 142 H ABG pO2 ABG Hemoglobin Oxyhemoglobin Sodium Potassium Chloride Carbon Dioxide BUN Creatinine Glucose POC Glucose 182 H Lactic Acid Calcium Phosphorus Iron TIBC Ferritin Total Bilirubin Direct Bilirubin AST ALT Total Protein Albumin Lipase Vitamin B12 Urine WBC (Auto) Plasma/Serum Alcohol Miscellaneous Test Crossmatch 03/09/19 03/09/19 03/09/19 02:10 02:30 03:00 WBC RBC Hgb Hct MCV MCH MCHC RDW Plt Count Lymph # Seg Neutrophils % Seg Neuts % (Manual) Lymphocytes % (Manual) Monocytes % (Manual) Eosinophils % (Manual) Basophils % (Manual) Nucleated RBC % Seg Neutrophils # Man Lymphocytes # (Manual) Monocytes # (Manual) PT INR APTT Fibrinogen D-Dimer POC ABG pH ABG pH POC ABG pCO2 POC ABG pO2 ABG pO2 ABG Hemoglobin Oxyhemoglobin Sodium 150 H D Potassium Chloride Carbon Dioxide BUN Creatinine Glucose 177 H POC Glucose 178 H Lactic Acid Calcium 10.5 H D Phosphorus Iron 208 H TIBC 185 L Ferritin Total Bilirubin Direct Bilirubin AST ALT Total Protein Albumin Lipase Vitamin B12 Urine WBC (Auto) Plasma/Serum Alcohol Miscellaneous Test Crossmatch 03/09/19 03/09/19 03/09/19 04:16 05:46 07:47 WBC RBC 1.06 L Hgb 3.9 L* Hct 11.7 L* D MCV 111 H MCH 37 H MCHC RDW 20.0 H Plt Count 52 L Lymph # Seg Neutrophils % 79.1 H Seg Neuts % (Manual) Lymphocytes % (Manual) Monocytes % (Manual) Eosinophils % (Manual) Basophils % (Manual) Nucleated RBC % Seg Neutrophils # Man Lymphocytes # (Manual) Monocytes # (Manual) PT INR APTT Fibrinogen D-Dimer POC ABG pH ABG pH POC ABG pCO2 POC ABG pO2 ABG pO2 ABG Hemoglobin Oxyhemoglobin Sodium Potassium Chloride Carbon Dioxide BUN Creatinine Glucose POC Glucose 201 H 176 H Lactic Acid Calcium Phosphorus Iron TIBC Ferritin Total Bilirubin Direct Bilirubin AST ALT Total Protein Albumin Lipase Vitamin B12 Urine WBC (Auto) Plasma/Serum Alcohol Miscellaneous Test Crossmatch 03/09/19 03/09/19 03/09/19 07:48 07:48 13:50 WBC RBC 2.69 L Hgb 8.9 L D Hct 25.8 L D MCV 96 H MCH 33 H MCHC 35 H RDW 17.1 H Plt Count 49 L Lymph # Seg Neutrophils % 79.1 H Seg Neuts % (Manual) Lymphocytes % (Manual) Monocytes % (Manual) Eosinophils % (Manual) Basophils % (Manual) Nucleated RBC % Seg Neutrophils # Man Lymphocytes # (Manual) Monocytes # (Manual) PT INR APTT Fibrinogen D-Dimer POC ABG pH ABG pH POC ABG pCO2 POC ABG pO2 ABG pO2 ABG Hemoglobin Oxyhemoglobin Sodium 154 H Potassium Chloride 111.2 H Carbon Dioxide 18 L BUN 22 H Creatinine 2.1 H Glucose 131 H POC Glucose Lactic Acid 19.10 H* Calcium Phosphorus Iron TIBC Ferritin Total Bilirubin Direct Bilirubin AST ALT Total Protein Albumin Lipase Vitamin B12 Urine WBC (Auto) Plasma/Serum Alcohol Miscellaneous Test Crossmatch 03/09/19 03/09/19 03/09/19 13:50 14:20 16:08 WBC RBC Hgb Hct MCV MCH MCHC RDW Plt Count Lymph # Seg Neutrophils % Seg Neuts % (Manual) Lymphocytes % (Manual) Monocytes % (Manual) Eosinophils % (Manual) Basophils % (Manual) Nucleated RBC % Seg Neutrophils # Man Lymphocytes # (Manual) Monocytes # (Manual) PT 28.2 H INR 2.70 H APTT 41.8 H Fibrinogen 81 L* D-Dimer 1494.02 H POC ABG pH ABG pH POC ABG pCO2 POC ABG pO2 ABG pO2 ABG Hemoglobin Oxyhemoglobin Sodium Potassium Chloride Carbon Dioxide BUN Creatinine Glucose POC Glucose 188 H 235 H Lactic Acid Calcium Phosphorus Iron TIBC Ferritin Total Bilirubin Direct Bilirubin AST ALT Total Protein Albumin Lipase Vitamin B12 Urine WBC (Auto) Plasma/Serum Alcohol Miscellaneous Test Crossmatch 03/09/19 03/09/19 03/09/19 17:55 23:26 Unknown WBC RBC Hgb Hct MCV MCH MCHC RDW Plt Count Lymph # Seg Neutrophils % Seg Neuts % (Manual) Lymphocytes % (Manual) Monocytes % (Manual) Eosinophils % (Manual) Basophils % (Manual) Nucleated RBC % Seg Neutrophils # Man Lymphocytes # (Manual) Monocytes # (Manual) PT INR APTT Fibrinogen D-Dimer POC ABG pH ABG pH POC ABG pCO2 POC ABG pO2 ABG pO2 ABG Hemoglobin Oxyhemoglobin Sodium Potassium Chloride Carbon Dioxide BUN Creatinine Glucose POC Glucose 233 H 236 H Lactic Acid Calcium Phosphorus Iron TIBC Ferritin Total Bilirubin Direct Bilirubin AST ALT Total Protein Albumin Lipase 385 H Vitamin B12 Urine WBC (Auto) Plasma/Serum Alcohol Miscellaneous Test Crossmatch 03/10/19 03/10/19 03/10/19 00:04 03:36 03:36 WBC RBC 2.11 L Hgb 7.8 L 7.1 L Hct 22.0 L 19.7 L* MCV MCH 34 H MCHC 36 H RDW 17.9 H Plt Count 45 L Lymph # Seg Neutrophils % 73.6 H Seg Neuts % (Manual) 90.0 H Lymphocytes % (Manual) 3.0 L Monocytes % (Manual) Eosinophils % (Manual) Basophils % (Manual) Nucleated RBC % 3.0 H Seg Neutrophils # Man Lymphocytes # (Manual) 0.2 L Monocytes # (Manual) PT INR APTT Fibrinogen D-Dimer POC ABG pH ABG pH POC ABG pCO2 POC ABG pO2 ABG pO2 ABG Hemoglobin Oxyhemoglobin Sodium 150 H Potassium 3.3 L D Chloride 113.2 H Carbon Dioxide BUN 30 H Creatinine 3.4 H D Glucose 196 H POC Glucose Lactic Acid Calcium 8.2 L Phosphorus Iron TIBC Ferritin Total Bilirubin Direct Bilirubin AST ALT Total Protein Albumin Lipase Vitamin B12 Urine WBC (Auto) Plasma/Serum Alcohol Miscellaneous Test Crossmatch 03/10/19 03/10/19 03/10/19 03:36 03:53 03:56 WBC RBC Hgb Hct MCV MCH MCHC RDW Plt Count Lymph # Seg Neutrophils % Seg Neuts % (Manual) Lymphocytes % (Manual) Monocytes % (Manual) Eosinophils % (Manual) Basophils % (Manual) Nucleated RBC % Seg Neutrophils # Man Lymphocytes # (Manual) Monocytes # (Manual) PT INR APTT Fibrinogen D-Dimer POC ABG pH ABG pH POC ABG pCO2 POC ABG pO2 ABG pO2 94.7 H ABG Hemoglobin 6.5 L Oxyhemoglobin Sodium Potassium Chloride Carbon Dioxide BUN Creatinine Glucose POC Glucose 212 H Lactic Acid Calcium Phosphorus Iron TIBC Ferritin Total Bilirubin 4.90 H Direct Bilirubin 3.9 H AST 6235 H ALT 924 H Total Protein 4.2 L D Albumin 2.5 L Lipase Vitamin B12 Urine WBC (Auto) Plasma/Serum Alcohol Miscellaneous Test Crossmatch 03/10/19 03/10/19 03/10/19 05:58 08:12 09:26 WBC RBC Hgb Hct MCV MCH MCHC RDW Plt Count Lymph # Seg Neutrophils % Seg Neuts % (Manual) Lymphocytes % (Manual) Monocytes % (Manual) Eosinophils % (Manual) Basophils % (Manual) Nucleated RBC % Seg Neutrophils # Man Lymphocytes # (Manual) Monocytes # (Manual) PT 29.3 H INR 2.83 H APTT Fibrinogen D-Dimer POC ABG pH ABG pH POC ABG pCO2 POC ABG pO2 ABG pO2 ABG Hemoglobin Oxyhemoglobin Sodium Potassium Chloride Carbon Dioxide BUN Creatinine Glucose POC Glucose 171 H 197 H Lactic Acid Calcium Phosphorus Iron TIBC Ferritin Total Bilirubin Direct Bilirubin AST ALT Total Protein Albumin Lipase Vitamin B12 Urine WBC (Auto) Plasma/Serum Alcohol Miscellaneous Test Crossmatch 03/10/19 03/10/19 03/10/19 11:40 14:04 16:18 WBC RBC Hgb 6.7 L Hct 18.8 L* MCV MCH MCHC RDW Plt Count Lymph # Seg Neutrophils % Seg Neuts % (Manual) Lymphocytes % (Manual) Monocytes % (Manual) Eosinophils % (Manual) Basophils % (Manual) Nucleated RBC % Seg Neutrophils # Man Lymphocytes # (Manual) Monocytes # (Manual) PT INR APTT Fibrinogen D-Dimer POC ABG pH ABG pH POC ABG pCO2 POC ABG pO2 ABG pO2 ABG Hemoglobin Oxyhemoglobin Sodium Potassium Chloride Carbon Dioxide BUN Creatinine Glucose POC Glucose 178 H 192 H Lactic Acid Calcium Phosphorus Iron TIBC Ferritin Total Bilirubin Direct Bilirubin AST ALT Total Protein Albumin Lipase Vitamin B12 Urine WBC (Auto) Plasma/Serum Alcohol Miscellaneous Test Crossmatch 03/10/19 03/10/19 03/11/19 21:42 22:00 00:05 WBC RBC Hgb 7.4 L Hct 21.1 L MCV MCH MCHC RDW Plt Count Lymph # Seg Neutrophils % Seg Neuts % (Manual) Lymphocytes % (Manual) Monocytes % (Manual) Eosinophils % (Manual) Basophils % (Manual) Nucleated RBC % Seg Neutrophils # Man Lymphocytes # (Manual) Monocytes # (Manual) PT INR APTT Fibrinogen D-Dimer POC ABG pH ABG pH POC ABG pCO2 POC ABG pO2 ABG pO2 ABG Hemoglobin Oxyhemoglobin Sodium Potassium Chloride Carbon Dioxide BUN Creatinine Glucose POC Glucose 174 H 136 H Lactic Acid Calcium Phosphorus Iron TIBC Ferritin Total Bilirubin Direct Bilirubin AST ALT Total Protein Albumin Lipase Vitamin B12 Urine WBC (Auto) Plasma/Serum Alcohol Miscellaneous Test Crossmatch 03/11/19 03/11/19 03/11/19 04:04 04:15 04:15 WBC RBC 2.28 L Hgb 7.4 L Hct 20.8 L MCV MCH 33 H MCHC 36 H RDW 18.4 H Plt Count 38 L Lymph # 1.1 L Seg Neutrophils % 72.7 H Seg Neuts % (Manual) Lymphocytes % (Manual) Monocytes % (Manual) Eosinophils % (Manual) Basophils % (Manual) Nucleated RBC % Seg Neutrophils # Man Lymphocytes # (Manual) Monocytes # (Manual) PT INR APTT Fibrinogen D-Dimer POC ABG pH ABG pH POC ABG pCO2 POC ABG pO2 ABG pO2 ABG Hemoglobin Oxyhemoglobin Sodium 147 H Potassium 3.2 L Chloride 109.2 H Carbon Dioxide BUN 34 H Creatinine 5.0 H Glucose 132 H POC Glucose 133 H Lactic Acid Calcium 7.5 L Phosphorus Iron TIBC Ferritin Total Bilirubin 7.40 H Direct Bilirubin AST 3748 H ALT 864 H Total Protein 4.7 L Albumin 2.5 L Lipase Vitamin B12 Urine WBC (Auto) Plasma/Serum Alcohol Miscellaneous Test Crossmatch 03/11/19 03/11/19 03/11/19 04:25 08:28 12:03 WBC RBC Hgb Hct MCV MCH MCHC RDW Plt Count Lymph # Seg Neutrophils % Seg Neuts % (Manual) Lymphocytes % (Manual) Monocytes % (Manual) Eosinophils % (Manual) Basophils % (Manual) Nucleated RBC % Seg Neutrophils # Man Lymphocytes # (Manual) Monocytes # (Manual) PT INR APTT Fibrinogen D-Dimer POC ABG pH ABG pH 7.467 H POC ABG pCO2 POC ABG pO2 ABG pO2 69.6 L ABG Hemoglobin 7.4 L Oxyhemoglobin 94.3 L Sodium Potassium Chloride Carbon Dioxide BUN Creatinine Glucose POC Glucose 128 H 122 H Lactic Acid Calcium Phosphorus Iron TIBC Ferritin Total Bilirubin Direct Bilirubin AST ALT Total Protein Albumin Lipase Vitamin B12 Urine WBC (Auto) Plasma/Serum Alcohol Miscellaneous Test Crossmatch 03/11/19 03/11/19 03/11/19 17:01 20:09 23:58 WBC RBC Hgb Hct MCV MCH MCHC RDW Plt Count Lymph # Seg Neutrophils % Seg Neuts % (Manual) Lymphocytes % (Manual) Monocytes % (Manual) Eosinophils % (Manual) Basophils % (Manual) Nucleated RBC % Seg Neutrophils # Man Lymphocytes # (Manual) Monocytes # (Manual) PT INR APTT Fibrinogen D-Dimer POC ABG pH ABG pH POC ABG pCO2 POC ABG pO2 ABG pO2 ABG Hemoglobin Oxyhemoglobin Sodium Potassium Chloride Carbon Dioxide BUN Creatinine Glucose POC Glucose 135 H 155 H 119 H Lactic Acid Calcium Phosphorus Iron TIBC Ferritin Total Bilirubin Direct Bilirubin AST ALT Total Protein Albumin Lipase Vitamin B12 Urine WBC (Auto) Plasma/Serum Alcohol Miscellaneous Test Crossmatch 03/12/19 03/12/19 03/12/19 03:00 04:10 05:24 WBC RBC Hgb Hct MCV MCH MCHC RDW Plt Count Lymph # Seg Neutrophils % Seg Neuts % (Manual) Lymphocytes % (Manual) Monocytes % (Manual) Eosinophils % (Manual) Basophils % (Manual) Nucleated RBC % Seg Neutrophils # Man Lymphocytes # (Manual) Monocytes # (Manual) PT INR APTT Fibrinogen D-Dimer POC ABG pH ABG pH 7.467 H POC ABG pCO2 POC ABG pO2 ABG pO2 77.8 L ABG Hemoglobin 7.3 L Oxyhemoglobin 94.2 L Sodium Potassium Chloride Carbon Dioxide BUN Creatinine Glucose POC Glucose 137 H 137 H Lactic Acid Calcium Phosphorus Iron TIBC Ferritin Total Bilirubin Direct Bilirubin AST ALT Total Protein Albumin Lipase Vitamin B12 Urine WBC (Auto) Plasma/Serum Alcohol Miscellaneous Test Crossmatch 03/12/19 03/12/19 03/12/19 07:40 07:40 08:40 WBC RBC 2.24 L Hgb 7.4 L Hct 20.9 L MCV MCH 33 H MCHC 35 H RDW 19.0 H Plt Count 45 L Lymph # Seg Neutrophils % Seg Neuts % (Manual) 76.0 H Lymphocytes % (Manual) Monocytes % (Manual) Eosinophils % (Manual) Basophils % (Manual) Nucleated RBC % 11.0 H Seg Neutrophils # Man Lymphocytes # (Manual) 1.1 L Monocytes # (Manual) PT 22.4 H INR 2.02 H APTT 45.4 H Fibrinogen D-Dimer POC ABG pH ABG pH POC ABG pCO2 POC ABG pO2 ABG pO2 ABG Hemoglobin Oxyhemoglobin Sodium Potassium Chloride Carbon Dioxide BUN Creatinine Glucose POC Glucose 132 H Lactic Acid Calcium Phosphorus Iron TIBC Ferritin Total Bilirubin Direct Bilirubin AST ALT Total Protein Albumin Lipase Vitamin B12 Urine WBC (Auto) Plasma/Serum Alcohol Miscellaneous Test Crossmatch 03/12/19 03/12/19 03/12/19 12:00 14:54 16:51 WBC RBC Hgb Hct MCV MCH MCHC RDW Plt Count Lymph # Seg Neutrophils % Seg Neuts % (Manual) Lymphocytes % (Manual) Monocytes % (Manual) Eosinophils % (Manual) Basophils % (Manual) Nucleated RBC % Seg Neutrophils # Man Lymphocytes # (Manual) Monocytes # (Manual) PT INR APTT Fibrinogen D-Dimer POC ABG pH ABG pH POC ABG pCO2 POC ABG pO2 ABG pO2 ABG Hemoglobin Oxyhemoglobin Sodium Potassium Chloride Carbon Dioxide BUN Creatinine Glucose POC Glucose 160 H 122 H Lactic Acid Calcium Phosphorus Iron TIBC Ferritin Total Bilirubin Direct Bilirubin AST ALT Total Protein Albumin Lipase Vitamin B12 Urine WBC (Auto) Plasma/Serum Alcohol Miscellaneous Test Flexitest 1 H Crossmatch 03/12/19 03/12/19 03/13/19 Unknown Unknown 03:45 WBC RBC Hgb Hct MCV MCH MCHC RDW Plt Count Lymph # Seg Neutrophils % Seg Neuts % (Manual) Lymphocytes % (Manual) Monocytes % (Manual) Eosinophils % (Manual) Basophils % (Manual) Nucleated RBC % Seg Neutrophils # Man Lymphocytes # (Manual) Monocytes # (Manual) PT INR APTT Fibrinogen D-Dimer POC ABG pH ABG pH POC ABG pCO2 POC ABG pO2 ABG pO2 62.5 L ABG Hemoglobin 7.6 L Oxyhemoglobin 92.3 L Sodium Potassium Chloride Carbon Dioxide BUN 26 H Creatinine 4.1 H Glucose 128 H POC Glucose Lactic Acid Calcium 7.0 L Phosphorus Iron TIBC Ferritin Total Bilirubin 8.90 H Direct Bilirubin 7.4 H AST 2116 H ALT 767 H Total Protein 5.1 L Albumin 2.3 L Lipase Vitamin B12 Urine WBC (Auto) Plasma/Serum Alcohol Miscellaneous Test Crossmatch 03/13/19 03/13/19 03/13/19 04:11 04:11 08:04 WBC 4.2 L RBC 2.09 L Hgb 6.8 L 7.0 L Hct 19.6 L* 20.0 L MCV MCH 33 H MCHC 35 H RDW 20.2 H Plt Count 44 L Lymph # Seg Neutrophils % Seg Neuts % (Manual) Lymphocytes % (Manual) 7.0 L Monocytes % (Manual) 32.0 H Eosinophils % (Manual) 5.0 H Basophils % (Manual) 2.0 H Nucleated RBC % 12.0 H Seg Neutrophils # Man 0.0 L Lymphocytes # (Manual) 0.0 L Monocytes # (Manual) PT INR APTT Fibrinogen D-Dimer POC ABG pH ABG pH POC ABG pCO2 POC ABG pO2 ABG pO2 ABG Hemoglobin Oxyhemoglobin Sodium Potassium 3.0 L Chloride Carbon Dioxide BUN 27 H Creatinine 3.7 H Glucose POC Glucose Lactic Acid Calcium 6.3 L Phosphorus Iron TIBC Ferritin Total Bilirubin Direct Bilirubin AST ALT Total Protein Albumin Lipase Vitamin B12 Urine WBC (Auto) Plasma/Serum Alcohol Miscellaneous Test Crossmatch 03/13/19 03/13/19 03/13/19 12:04 17:05 21:23 WBC RBC Hgb Hct MCV MCH MCHC RDW Plt Count Lymph # Seg Neutrophils % Seg Neuts % (Manual) Lymphocytes % (Manual) Monocytes % (Manual) Eosinophils % (Manual) Basophils % (Manual) Nucleated RBC % Seg Neutrophils # Man Lymphocytes # (Manual) Monocytes # (Manual) PT INR APTT Fibrinogen D-Dimer POC ABG pH ABG pH POC ABG pCO2 POC ABG pO2 ABG pO2 ABG Hemoglobin Oxyhemoglobin Sodium Potassium Chloride Carbon Dioxide BUN Creatinine Glucose POC Glucose 114 H 111 H 145 H Lactic Acid Calcium Phosphorus Iron TIBC Ferritin Total Bilirubin Direct Bilirubin AST ALT Total Protein Albumin Lipase Vitamin B12 Urine WBC (Auto) Plasma/Serum Alcohol Miscellaneous Test Crossmatch 03/14/19 03/14/19 03/14/19 00:00 04:10 05:25 WBC 4.2 L RBC 2.20 L Hgb 7.3 L Hct 21.0 L MCV 96 H MCH 33 H MCHC 35 H RDW 20.1 H Plt Count 65 L Lymph # Seg Neutrophils % Seg Neuts % (Manual) Lymphocytes % (Manual) 6.0 L Monocytes % (Manual) 18 H Eosinophils % (Manual) Basophils % (Manual) Nucleated RBC % Seg Neutrophils # Man Lymphocytes # (Manual) 0.3 L Monocytes # (Manual) PT INR APTT Fibrinogen D-Dimer POC ABG pH ABG pH POC ABG pCO2 POC ABG pO2 ABG pO2 ABG Hemoglobin Oxyhemoglobin Sodium Potassium Chloride Carbon Dioxide BUN Creatinine Glucose POC Glucose 173 H 185 H Lactic Acid Calcium Phosphorus Iron TIBC Ferritin Total Bilirubin Direct Bilirubin AST ALT Total Protein Albumin Lipase Vitamin B12 Urine WBC (Auto) Plasma/Serum Alcohol Miscellaneous Test Crossmatch 03/14/19 03/14/19 03/14/19 05:25 07:34 12:05 WBC RBC Hgb Hct MCV MCH MCHC RDW Plt Count Lymph # Seg Neutrophils % Seg Neuts % (Manual) Lymphocytes % (Manual) Monocytes % (Manual) Eosinophils % (Manual) Basophils % (Manual) Nucleated RBC % Seg Neutrophils # Man Lymphocytes # (Manual) Monocytes # (Manual) PT INR APTT Fibrinogen D-Dimer POC ABG pH ABG pH POC ABG pCO2 POC ABG pO2 ABG pO2 ABG Hemoglobin Oxyhemoglobin Sodium Potassium Chloride 108.2 H Carbon Dioxide BUN 28 H Creatinine 2.4 H Glucose 179 H POC Glucose 190 H 177 H Lactic Acid Calcium 6.5 L Phosphorus Iron TIBC Ferritin Total Bilirubin 9.00 H Direct Bilirubin AST 321 H ALT 341 H Total Protein 5.2 L Albumin 2.2 L Lipase Vitamin B12 Urine WBC (Auto) Plasma/Serum Alcohol Miscellaneous Test Crossmatch 03/14/19 03/14/19 03/14/19 16:02 20:13 23:28 WBC RBC Hgb Hct MCV MCH MCHC RDW Plt Count Lymph # Seg Neutrophils % Seg Neuts % (Manual) Lymphocytes % (Manual) Monocytes % (Manual) Eosinophils % (Manual) Basophils % (Manual) Nucleated RBC % Seg Neutrophils # Man Lymphocytes # (Manual) Monocytes # (Manual) PT INR APTT Fibrinogen D-Dimer POC ABG pH ABG pH POC ABG pCO2 POC ABG pO2 ABG pO2 ABG Hemoglobin Oxyhemoglobin Sodium Potassium Chloride Carbon Dioxide BUN Creatinine Glucose POC Glucose 140 H 145 H 140 H Lactic Acid Calcium Phosphorus Iron TIBC Ferritin Total Bilirubin Direct Bilirubin AST ALT Total Protein Albumin Lipase Vitamin B12 Urine WBC (Auto) Plasma/Serum Alcohol Miscellaneous Test Crossmatch 03/14/19 03/15/19 03/15/19 Unknown 01:00 04:08 WBC RBC Hgb Hct MCV MCH MCHC RDW Plt Count Lymph # Seg Neutrophils % Seg Neuts % (Manual) Lymphocytes % (Manual) Monocytes % (Manual) Eosinophils % (Manual) Basophils % (Manual) Nucleated RBC % Seg Neutrophils # Man Lymphocytes # (Manual) Monocytes # (Manual) PT 18.5 H INR 1.58 H APTT Fibrinogen D-Dimer POC ABG pH ABG pH POC ABG pCO2 POC ABG pO2 ABG pO2 102.3 H ABG Hemoglobin 9.6 L Oxyhemoglobin 94.9 L Sodium Potassium Chloride Carbon Dioxide BUN Creatinine Glucose POC Glucose 136 H Lactic Acid Calcium Phosphorus Iron TIBC Ferritin Total Bilirubin Direct Bilirubin AST ALT Total Protein Albumin Lipase Vitamin B12 Urine WBC (Auto) Plasma/Serum Alcohol Miscellaneous Test Crossmatch 09/09/19 09/09/19 09/09/19 04:45 04:50 04:50 WBC RBC 2.30 L Hgb 7.6 L Hct 22.2 L MCV 97 H MCH 33 H MCHC RDW 22.5 H Plt Count 109 L Lymph # Seg Neutrophils % Seg Neuts % (Manual) 87.0 H Lymphocytes % (Manual) 6.0 L Monocytes % (Manual) Eosinophils % (Manual) Basophils % (Manual) Nucleated RBC % 1.0 H Seg Neutrophils # Man 8.4 H Lymphocytes # (Manual) 0.6 L Monocytes # (Manual) PT INR APTT Fibrinogen D-Dimer POC ABG pH 7.574 H ABG pH POC ABG pCO2 POC ABG pO2 123 H ABG pO2 ABG Hemoglobin Oxyhemoglobin Sodium Potassium Chloride Carbon Dioxide BUN Creatinine Glucose POC Glucose Lactic Acid Calcium Phosphorus Iron TIBC Ferritin 4122.0 H Total Bilirubin Direct Bilirubin AST ALT Total Protein Albumin Lipase Vitamin B12 Urine WBC (Auto) Plasma/Serum Alcohol Miscellaneous Test Crossmatch 03/15/19 03/15/19 03/15/19 04:50 04:50 08:22 WBC RBC Hgb Hct MCV MCH MCHC RDW Plt Count Lymph # Seg Neutrophils % Seg Neuts % (Manual) Lymphocytes % (Manual) Monocytes % (Manual) Eosinophils % (Manual) Basophils % (Manual) Nucleated RBC % Seg Neutrophils # Man Lymphocytes # (Manual) Monocytes # (Manual) PT INR APTT Fibrinogen D-Dimer POC ABG pH ABG pH POC ABG pCO2 POC ABG pO2 ABG pO2 ABG Hemoglobin Oxyhemoglobin Sodium 146 H Potassium 3.5 L Chloride 109.7 H Carbon Dioxide BUN 29 H Creatinine 1.8 H Glucose 134 H POC Glucose 132 H Lactic Acid Calcium 6.7 L Phosphorus Iron TIBC Ferritin Total Bilirubin 8.00 H Direct Bilirubin AST 204 H ALT 272 H Total Protein 5.4 L Albumin 2.6 L Lipase Vitamin B12 > 2000 H Urine WBC (Auto) Plasma/Serum Alcohol Miscellaneous Test Crossmatch 03/15/19 03/15/19 03/15/19 11:41 12:22 19:55 WBC RBC Hgb Hct MCV MCH MCHC RDW Plt Count Lymph # Seg Neutrophils % Seg Neuts % (Manual) Lymphocytes % (Manual) Monocytes % (Manual) Eosinophils % (Manual) Basophils % (Manual) Nucleated RBC % Seg Neutrophils # Man Lymphocytes # (Manual) Monocytes # (Manual) PT INR APTT Fibrinogen D-Dimer POC ABG pH ABG pH POC ABG pCO2 POC ABG pO2 ABG pO2 ABG Hemoglobin Oxyhemoglobin Sodium Potassium Chloride Carbon Dioxide BUN Creatinine Glucose POC Glucose 122 H 115 H 107 H Lactic Acid Calcium Phosphorus Iron TIBC Ferritin Total Bilirubin Direct Bilirubin AST ALT Total Protein Albumin Lipase Vitamin B12 Urine WBC (Auto) Plasma/Serum Alcohol Miscellaneous Test Crossmatch 03/15/19 03/16/19 03/16/19 23:13 03:00 06:00 WBC 16.1 H RBC 2.55 L Hgb 8.4 L Hct 25.2 L MCV 99 H MCH 33 H MCHC RDW 23.7 H Plt Count 123 L Lymph # Seg Neutrophils % Seg Neuts % (Manual) 92.0 H Lymphocytes % (Manual) 5.0 L Monocytes % (Manual) Eosinophils % (Manual) Basophils % (Manual) Nucleated RBC % 4.0 H Seg Neutrophils # Man 14.8 H Lymphocytes # (Manual) 0.8 L Monocytes # (Manual) PT INR APTT Fibrinogen D-Dimer POC ABG pH ABG pH POC ABG pCO2 POC ABG pO2 ABG pO2 ABG Hemoglobin Oxyhemoglobin Sodium Potassium Chloride Carbon Dioxide BUN Creatinine Glucose POC Glucose 133 H 135 H Lactic Acid Calcium Phosphorus Iron TIBC Ferritin Total Bilirubin Direct Bilirubin AST ALT Total Protein Albumin Lipase Vitamin B12 Urine WBC (Auto) Plasma/Serum Alcohol Miscellaneous Test Crossmatch 03/16/19 03/16/19 03/16/19 06:00 06:00 10:08 WBC RBC Hgb Hct MCV MCH MCHC RDW Plt Count Lymph # Seg Neutrophils % Seg Neuts % (Manual) Lymphocytes % (Manual) Monocytes % (Manual) Eosinophils % (Manual) Basophils % (Manual) Nucleated RBC % Seg Neutrophils # Man Lymphocytes # (Manual) Monocytes # (Manual) PT INR APTT Fibrinogen D-Dimer POC ABG pH ABG pH 7.469 H POC ABG pCO2 POC ABG pO2 ABG pO2 70.7 L 75.8 L ABG Hemoglobin 7.9 L 7.9 L Oxyhemoglobin 93.2 L 94.5 L Sodium 147 H Potassium 3.4 L Chloride 108.7 H Carbon Dioxide BUN 29 H Creatinine Glucose 114 H POC Glucose Lactic Acid Calcium 7.2 L Phosphorus Iron TIBC Ferritin Total Bilirubin 9.90 H Direct Bilirubin AST 271 H ALT 268 H Total Protein 6.1 L Albumin 2.8 L Lipase Vitamin B12 Urine WBC (Auto) Plasma/Serum Alcohol Miscellaneous Test Crossmatch 03/16/19 03/16/19 03/17/19 19:58 23:55 05:09 WBC RBC Hgb Hct MCV MCH MCHC RDW Plt Count Lymph # Seg Neutrophils % Seg Neuts % (Manual) Lymphocytes % (Manual) Monocytes % (Manual) Eosinophils % (Manual) Basophils % (Manual) Nucleated RBC % Seg Neutrophils # Man Lymphocytes # (Manual) Monocytes # (Manual) PT INR APTT Fibrinogen D-Dimer POC ABG pH ABG pH POC ABG pCO2 POC ABG pO2 ABG pO2 ABG Hemoglobin Oxyhemoglobin Sodium Potassium Chloride Carbon Dioxide BUN Creatinine Glucose POC Glucose 196 H 210 H 150 H Lactic Acid Calcium Phosphorus Iron TIBC Ferritin Total Bilirubin Direct Bilirubin AST ALT Total Protein Albumin Lipase Vitamin B12 Urine WBC (Auto) Plasma/Serum Alcohol Miscellaneous Test Crossmatch 03/17/19 03/17/19 03/17/19 06:30 06:30 08:45 WBC 15.3 H RBC 2.36 L Hgb 7.7 L Hct 23.0 L MCV 98 H MCH 33 H MCHC RDW 23.1 H Plt Count 116 L Lymph # Seg Neutrophils % Seg Neuts % (Manual) Lymphocytes % (Manual) Monocytes % (Manual) Eosinophils % (Manual) Basophils % (Manual) Nucleated RBC % Seg Neutrophils # Man Lymphocytes # (Manual) Monocytes # (Manual) PT INR APTT Fibrinogen D-Dimer POC ABG pH ABG pH POC ABG pCO2 POC ABG pO2 ABG pO2 ABG Hemoglobin Oxyhemoglobin Sodium Potassium 3.0 L Chloride Carbon Dioxide BUN Creatinine Glucose 128 H POC Glucose 152 H Lactic Acid Calcium 7.3 L Phosphorus Iron TIBC Ferritin Total Bilirubin 9.20 H Direct Bilirubin AST 214 H ALT 225 H Total Protein 5.8 L Albumin 2.4 L Lipase Vitamin B12 Urine WBC (Auto) Plasma/Serum Alcohol Miscellaneous Test Crossmatch Allied health notes reviewed: nursing
[2019-03-17] MEDS ORDERED: ATIVAN IV PRN (11:38)
[2019-03-17 13:30] LABS: Bilirubin,Urine NEG (Negative); Blood,Urine MOD (Negative); Color,Urine Amber (Yellow); Protein,Urine <15 mg/dL mg/dL (Negative); Urobilinogen,Urine < 2.0 mg/dL (<2.0)
--- NOTE | 2019-03-17 13:59 | Progress Note ---
Assessment and Plan 1. Variceal bleed - s/p banding. No evidence of ongoing GI bleed. - will need to f/u as outpatient to do surveillance EGD and decide re: B- blockers. 2. Alcoholic hepatitis/cirrhosis - very ill. LFTs improving slowly. INR improved. Renal failure improving. On prednisolone. - continue prednisolone, possibly for 1 month total, with tapering after 1 wk. - monitor LFTs 3. Nutrition - advance diet, and stop TPN. 4. Back pain - with bruising. Likely musculoskeletal. However, pt has had a fall at home. - consider back X-ray Subjective Date of service: 03/17/19 Principal diagnosis: Ac. GI bleed; hemorrhagic shock; Ac. hypoxemic resp failure; ADRIANNE likley ATN Interval history: Misty po well. No abdominal complaints, but complains of low back pain. Objective - Constitutional Vitals: Vital Signs - 12hr 03/17/19 03/17/19 03/17/19 02:00 03:00 03:03 Temperature Pulse Rate 82 84 Pulse Rate [ 87 From Monitor] Pulse Rate [ 87 Left Dorsalis Pedis] Respiratory 26 H 23 26 H Rate Blood Pressure 145/85 153/86 O2 Sat by Pulse 90 90 98 Oximetry 03/17/19 03/17/19 03/17/19 03:05 03:53 04:00 Temperature 97.5 F L Pulse Rate 87 83 Pulse Rate [ From Monitor] Pulse Rate [ Left Dorsalis Pedis] Respiratory 23 Rate Blood Pressure 160/93 O2 Sat by Pulse 92 Oximetry 03/17/19 03/17/19 03/17/19 05:00 06:00 07:00 Temperature Pulse Rate 70 68 68 Pulse Rate [ From Monitor] Pulse Rate [ Left Dorsalis Pedis] Respiratory 25 H 23 21 Rate Blood Pressure 140/83 131/82 134/77 O2 Sat by Pulse 93 93 94 Oximetry 03/17/19 03/17/19 03/17/19 08:00 08:26 09:00 Temperature 99.5 F Pulse Rate 75 86 Pulse Rate [ 67 From Monitor] Pulse Rate [ Left Dorsalis Pedis] Respiratory 21 29 H Rate Blood Pressure 144/81 145/80 O2 Sat by Pulse 91 94 94 Oximetry 03/17/19 03/17/19 03/17/19 10:00 11:00 12:00 Temperature Pulse Rate 85 88 Pulse Rate [ 88 From Monitor] Pulse Rate [ Left Dorsalis Pedis] Respiratory 29 H 22 Rate Blood Pressure 138/83 149/77 136/80 O2 Sat by Pulse 96 95 96 Oximetry General appearance: Present: no acute distress, other (subconjuctival hemorrhages) - EENT Eyes: PERRL, EOM intact, scleral icterus ENT: hearing intact - Respiratory Respiratory effort: normal Extremity abnormal: edema (2+) - Gastrointestinal General gastrointestinal: Present: soft, non-tender - Additional findings Additional findings: Bruising on both sides, lower back. Moderate tenderness in L spine. - Labs CBC & Chem 7: 03/17/19 06:30 03/17/19 06:30 Labs: Abnormal lab results 03/12/19 03/16/19 03/16/19 Range/Units 14:54 19:58 23:55 WBC (4.5-11.0) K/mm3 RBC (3.65-5.03) M/mm3 Hgb (11.8-15.2) gm/dl Hct (35.5-45.6) % MCV (84-94) fl MCH (28-32) pg RDW (13.2-15.2) % Plt Count (140-440) K/mm3 Potassium (3.6-5.0) mmol/L Glucose (75-100) mg/dL POC Glucose 196 H 210 H (70-105) Calcium (8.4-10.2) mg/dL Total Bilirubin (0.1-1.2) mg/dL AST (5-40) units/L ALT (7-56) units/L Total Protein (6.3-8.2) g/dL Albumin (3.9-5) g/dL Miscellaneous Test Flexitest 1 H 03/17/19 03/17/19 03/17/19 Range/Units 05:09 06:30 06:30 WBC 15.3 H (4.5-11.0) K/mm3 RBC 2.36 L (3.65-5.03) M/mm3 Hgb 7.7 L (11.8-15.2) gm/dl Hct 23.0 L (35.5-45.6) % MCV 98 H (84-94) fl MCH 33 H (28-32) pg RDW 23.1 H (13.2-15.2) % Plt Count 116 L (140-440) K/mm3 Potassium 3.0 L (3.6-5.0) mmol/L Glucose 128 H (75-100) mg/dL POC Glucose 150 H (70-105) Calcium 7.3 L (8.4-10.2) mg/dL Total Bilirubin 9.20 H (0.1-1.2) mg/dL AST 214 H (5-40) units/L ALT 225 H (7-56) units/L Total Protein 5.8 L (6.3-8.2) g/dL Albumin 2.4 L (3.9-5) g/dL Miscellaneous Test 03/17/19 03/17/19 Range/Units 08:45 11:47 WBC (4.5-11.0) K/mm3 RBC (3.65-5.03) M/mm3 Hgb (11.8-15.2) gm/dl Hct (35.5-45.6) % MCV (84-94) fl MCH (28-32) pg RDW (13.2-15.2) % Plt Count (140-440) K/mm3 Potassium (3.6-5.0) mmol/L Glucose (75-100) mg/dL POC Glucose 152 H 147 H (70-105) Calcium (8.4-10.2) mg/dL Total Bilirubin (0.1-1.2) mg/dL AST (5-40) units/L ALT (7-56) units/L Total Protein (6.3-8.2) g/dL Albumin (3.9-5) g/dL Miscellaneous Test Medications & Allergies - Medications Allergies/Adverse Reactions: Allergies No Known Allergies Allergy (Verified 03/08/19 12:31) Home Medications: Home Medications Medication Instructions Recorded Confirmed Last Taken Type No Known Home Medications [No 03/10/19 03/10/19 Unknown History Reported Home Medications] Active Medications: Generic Name Dose Route Start Last Admin Trade Name Freq PRN Reason Stop Dose Admin Acetaminophen 650 mg 03/09/19 13:00 03/12/19 06:50 Tylenol [place] 650 mg Q4H PRN Administration Pain, Mild (1-3) Albuterol 2.5 mg 03/08/19 14:56 Proventil IH Q3HRT PRN Shortness Of Breath Dextrose 50 ml 03/09/19 01:34 D50w (25gm) Syringe IV PRN PRN Hypoglycemia Hydrophilic Ointment 1 applic 03/08/19 22:51 Vaseline Lip Therapy TP Q2HR PRN Dry Lips Sodium Chloride 100 mls @ 999 mls/hr 03/13/19 13:20 Nacl 0.9% IV JULIO CESAR PRN Hypotension Sodium Chloride 100 mls @ 999 mls/hr 03/15/19 17:08 Nacl 0.9% IV JULIO CESAR PRN Hypotension Amino Acids/Electrolytes/Dextrose 2,016 mls @ 84 mls/hr 03/16/19 20:00 03/16/19 20:00 Tpn Adult IV 03/17/19 19:59 84 mls/hr DAILY@2000 CHARLIE Administration Protocol Lorazepam 2 mg 03/08/19 14:57 03/15/19 00:15 Ativan IV 2 mg Q1HR PRN Administration CIWA-Ar 8-15 Lorazepam 4 mg 03/17/19 11:38 Ativan IV Q1H PRN CIWA-Ar 16-25 Methylprednisolone Sodium Succinate 40 mg 03/13/19 15:00 03/16/19 15:29 Solu-Medrol IV 40 mg Q24H CHARLIE Administration Metoclopramide HCl 5 mg 03/11/19 09:00 Reglan IV Q6H PRN Nausea And Vomiting Metoprolol Tartrate 5 mg 03/11/19 17:41 03/11/19 20:04 Lopressor IV 5 mg Q6HR PRN Administration Tachyarrhythmias Multi-Ingred Cream/Lotion/Oil/Oint 1 applic 03/08/19 22:51 Artificial Tears Ophth Oint OU Q4HR PRN Dry Eye(s) Pantoprazole Sodium 40 mg 03/17/19 10:00 03/17/19 10:03 Protonix PO 40 mg BID CHARLIE Administration Potassium Chloride 40 meq 03/17/19 09:00 03/17/19 10:03 Potassium Chloride PO 03/17/19 15:01 40 meq Q6H CHARLIE Administration Sodium Chloride 10 ml 03/08/19 22:00 03/17/19 10:04 Sodium Chloride Flush Syringe 10 Ml IV 10 ml BID CHARLIE Administration Sodium Chloride 10 ml 03/08/19 14:56 Sodium Chloride Flush Syringe 10 Ml IV PRN PRN LINE FLUSH
--- NOTE | 2019-03-17 15:53 | XRay Report ---
LUMBOSACRAL SPINE, 5 VIEWS INDICATION: Back pain, fall prior to admission. COMPARISON: None. IMPRESSION: Normal alignment and bone mineralization. Mild disc space narrowing is noted at L5-S1. There is mild to moderate diffuse facet arthropathy. No acute osseous injury or bone lesion is ident ified. The oblique images demonstrate bilateral chronic appearing L5 pars defects. No subluxation. Th e bony neural foramen appear widely patent bilaterally. A dual-lumen left femoral catheter terminates in the IVC at the level of L3-4. Signer Name: Brendon Bae Jr, MD Signed: 03/17/2019 3:48 PM Workstation Name: [id number]
--- NOTE | 2019-03-17 15:53 | XRay Report ---
Sacrum and coccyx, 3 views INDICATION: Back pain, fall prior to admission. COMPARISON: None. IMPRESSION: No acute osseous or soft tissue abnormality. No significant DJD. Signer Name: Brendon Bae Jr, MD Signed: 03/17/2019 3:48 PM Workstation Name: [id number]
[2019-03-17] MEDS: SOLU-Medrol IV SCH (16:49)
[2019-03-18] MEDS: ATIVAN IV PRN (02:55)
[2019-03-18 05:16] LABS: Hemoglobin 7.9 gm/dl (11.8-15.2); Mean Corpuscular HGB Conc 33 % (32-34); Mean Corpuscular Volume 99 fl (84-94); Platelet Count 127 K/mm3 (140-440); Red Blood Count 2.43 M/mm3 (3.65-5.03)
[2019-03-18 05:31] LABS: Alanine Aminotransferase 208 units/L (7-56); Albumin 2.5 g/dL (3.9-5); BUN/Creatinine Ratio 15; Blood Urea Nitrogen 9 mg/dL (9-20); Calcium 7.8 mg/dL (8.4-10.2); Hemolysis Index 7
[2019-03-18 05:32] LABS: Red Cell Distribution Width 23.1 % (13.2-15.2)
--- NOTE | 2019-03-18 07:44 | Hem/Onc Progress Note ---
Assessment and Plan 1. h/o Anemia. Hemoglobin was 3 secondary to gastrointestinal bleed. 2. h/o Thrombocytopenia, likely secondary to consumption and liver disease. 3. h/o Low fibrinogen and elevated PT, PTT, secondary to DIC/consumption. 4. h/o Abnormal liver function test. 5. The patient's blood pressure was low and was on pressors. 6. s/p Intubation at admission. then extubation on 03/16 7. History of cirrhosis. 8. History of alcohol usage and smoking. 9. Esophagogastroduodenoscopy showed varices, status post intervention. 10. The patient got octreotide infusion. 11. s/p cryoprecipitate as fibrinogen level was low. His LFTs were abnormal. Vitamin k may not benefit, we have option of FFPs. There is a mention of chest x-ray for monitoring TRALI. s/p vit k follow labs supportive care for now off vent ptl >100 abn LFTs PT/ PTT better 03/18 clinically better - on medical floor - Patient Problems (1) Thrombocytopenia Current Visit: Yes Status: Acute Subjective Date of service: 03/18/19 Principal diagnosis: low plt - anemia Interval history: transferred to floor Objective - Exam Narrative Exam: Pain - none General appearance not in acute distress Performance status limited self care Eyes - icterus ENT - no bleeding LNs cervical not palpable Neck - no LN Respiratory Normal Breath sounds - decreased air entry CVS S1 S2 + Extremities normal temperature General GI Rectal deferred male - deferred Skin warm Musculoskeletal - moves limbs Neurologically awake - communicative - Constitutional Vitals: Last Vital Signs Temp 98.2 F 03/18/19 05:59 Pulse 75 03/18/19 05:59 Resp 20 03/18/19 05:59 BP 123/77 03/18/19 05:59 Pulse Ox 90 03/18/19 05:59 - Labs Lab Results: Laboratory Results - last 24 hr 03/17/19 03/17/19 03/17/19 08:45 11:47 12:30 WBC RBC Hgb Hct MCV MCH MCHC RDW Plt Count Sodium Potassium Chloride Carbon Dioxide Anion Gap BUN Creatinine Estimated GFR BUN/Creatinine Ratio Glucose POC Glucose 152 H 147 H Calcium Total Bilirubin AST ALT Alkaline Phosphatase Total Protein Albumin Albumin/Globulin Ratio Urine Color Rosa Urine Turbidity Clear Urine pH 8.0 H Ur Specific [place] 1.008 Urine Protein <15 mg/dl Urine Glucose (UA) Neg Urine Ketones Neg Urine Blood Mod Urine Nitrite Neg Urine Bilirubin Neg Urine Urobilinogen < 2.0 Ur Leukocyte Esterase Neg Urine WBC (Auto) 1.0 Urine RBC (Auto) 1.0 03/17/19 03/17/19 03/18/19 16:50 20:17 04:06 WBC 16.3 H RBC 2.43 L Hgb 7.9 L Hct 24.0 L MCV 99 H MCH 33 H MCHC 33 RDW 23.1 H Plt Count 127 L Sodium Potassium Chloride Carbon Dioxide Anion Gap BUN Creatinine Estimated GFR BUN/Creatinine Ratio Glucose POC Glucose 151 H 223 H Calcium Total Bilirubin AST ALT Alkaline Phosphatase Total Protein Albumin Albumin/Globulin Ratio Urine Color Urine Turbidity Urine pH Ur Specific [place] Urine Protein Urine Glucose (UA) Urine Ketones Urine Blood Urine Nitrite Urine Bilirubin Urine Urobilinogen Ur Leukocyte Esterase Urine WBC (Auto) Urine RBC (Auto) 03/18/19 03/18/19 04:06 07:45 WBC RBC Hgb Hct MCV MCH MCHC RDW Plt Count Sodium 138 Potassium 3.4 L Chloride 101.0 Carbon Dioxide 25 Anion Gap 15 BUN 9 Creatinine 0.6 L Estimated GFR > 60 BUN/Creatinine Ratio 15 Glucose 153 H POC Glucose 138 H Calcium 7.8 L Total Bilirubin 10.00 H AST 177 H ALT 208 H Alkaline Phosphatase 110 Total Protein 6.7 Albumin 2.5 L Albumin/Globulin Ratio 0.6 Urine Color Urine Turbidity Urine pH Ur Specific [place] Urine Protein Urine Glucose (UA) Urine Ketones Urine Blood Urine Nitrite Urine Bilirubin Urine Urobilinogen Ur Leukocyte Esterase Urine WBC (Auto) Urine RBC (Auto) Medications & Allergies - Medications Allergies/Adverse Reactions: Allergies No Known Allergies Allergy (Verified 03/08/19 12:31) Home Medications: Home Medications Medication Instructions Recorded Confirmed Last Taken Type No Known Home Medications [No 03/10/19 03/10/19 Unknown History Reported Home Medications] Active Medications: Generic Name Dose Route Start Last Admin Trade Name Freq PRN Reason Stop Dose Admin Acetaminophen 650 mg 03/09/19 13:00 03/12/19 06:50 Tylenol [place] 650 mg Q4H PRN Administration Pain, Mild (1-3) Albuterol 2.5 mg 03/08/19 14:56 Proventil IH Q3HRT PRN Shortness Of Breath Dextrose 50 ml 03/09/19 01:34 D50w (25gm) Syringe IV PRN PRN Hypoglycemia Hydrophilic Ointment 1 applic 03/08/19 22:51 Vaseline Lip Therapy TP Q2HR PRN Dry Lips Sodium Chloride 100 mls @ 999 mls/hr 03/13/19 13:20 Nacl 0.9% IV JULIO CESAR PRN Hypotension Sodium Chloride 100 mls @ 999 mls/hr 03/15/19 17:08 Nacl 0.9% IV JULIO CESAR PRN Hypotension Lorazepam 2 mg 03/08/19 14:57 03/18/19 02:55 Ativan IV 2 mg Q1HR PRN Administration CIWA-Ar 8-15 Lorazepam 4 mg 03/17/19 11:38 Ativan IV Q1H PRN CIWA-Ar 16-25 Methylprednisolone Sodium Succinate 40 mg 03/13/19 15:00 03/17/19 16:49 Solu-Medrol IV 40 mg Q24H CHARLIE Administration Metoclopramide HCl 5 mg 03/11/19 09:00 03/17/19 22:52 Reglan IV 5 mg Q6H PRN Administration Nausea And Vomiting Metoprolol Tartrate 5 mg 03/11/19 17:41 03/11/19 20:04 Lopressor IV 5 mg Q6HR PRN Administration Tachyarrhythmias Multi-Ingred Cream/Lotion/Oil/Oint 1 applic 03/08/19 22:51 Artificial Tears Ophth Oint OU Q4HR PRN Dry Eye(s) Pantoprazole Sodium 40 mg 03/17/19 10:00 03/17/19 22:53 Protonix PO 40 mg BID CHARLIE Administration Sodium Chloride 10 ml 03/08/19 22:00 03/17/19 22:53 Sodium Chloride Flush Syringe 10 Ml IV 10 ml BID CHARLIE Administration Sodium Chloride 10 ml 03/08/19 14:56 Sodium Chloride Flush Syringe 10 Ml IV PRN PRN LINE FLUSH
--- NOTE | 2019-03-18 09:03 | Progress Note ---
Subjective Principal diagnosis: low plt - anemia Interval history: Patient was seen today for follow-up on multiple renal related issues Renal function normalized Mild hypokalemia noted Patient is well educated about his health issues now He is willing to take care of himself Events over 24 hours vitals, labs, intake and output. Medications were reviewed Allergies: Reviewed Past medical history: Reviewed Social history: Reviewed Family history: Reviewed Current medications: Reviewed Physical examination Vitals: Reviewed Gen.: No acute distress, alert HEENT: Oral mucosa moist. No icterus Neck: Supple, no JVD Chest: Clear to auscultation anteriorly and posteriorly. No wheezes Heart: Regular rate and rhythm, S1, S2 heard, no S3, S4 Abdomen: Soft, nontender. No renal bruit. No CVA tenderness. No suprapubic fullness Extremity: Dry skin, less than 1+ edema Skin: Dry skin. No purpuric rash Assessment and plan Acute kidney injury: Most likely resulting from acute tubular necrosis, patient has normalized his renal function, creatinine peaked at 5.0 on 03/11/2019 current creatinine is 0.6 which was 1.2 upon admission on March 08 Ultrasonogram showed evidence of liver cirrhosis CAT scan of the kidneys was essentially unremarkable on 03/09/2019 Mild hypokalemia please replace and follow GI bleed, hemoglobin currently 7.9 being followed by gastroenterology service Hepatitis profile negative She will need to make a follow-up appointment upon discharge in our office We'll sign off the case please call if needed Objective - Vital Signs Vital signs: Vital Signs - 12hr 03/17/19 03/17/19 03/18/19 22:00 23:10 02:38 Temperature 99.8 F H Pulse Rate 104 H 76 Pulse Rate [ 80 From Monitor] Respiratory 25 H 20 20 Rate Blood Pressure 149/93 O2 Sat by Pulse 96 95 100 Oximetry 03/18/19 05:59 Temperature 98.2 F Pulse Rate 75 Pulse Rate [ From Monitor] Respiratory 20 Rate Blood Pressure 123/77 O2 Sat by Pulse 90 Oximetry - Lab 03/18/19 04:06 03/18/19 04:06 Most recent lab results ABG pH 7.469 pH Units (7.350-7.450) H 03/16/19 10:08 ABG pCO2 34.4 mm Hg 03/16/19 10:08 ABG pO2 75.8 mm Hg (80.0-90.0) L 03/16/19 10:08 ABG HCO3 24.4 mmol/L (20.0-26.0) 03/16/19 10:08 ABG O2 Saturation 96.9 % (95.0-99.0) 03/16/19 10:08 Calcium 7.8 mg/dL (8.4-10.2) L 03/18/19 04:06 Phosphorus 2.80 mg/dL (2.5-4.5) 03/16/19 06:00 Magnesium 2.30 mg/dL (1.7-2.3) 03/16/19 06:00 Medications & Allergies - Medications Allergies/Adverse Reactions: Allergies No Known Allergies Allergy (Verified 03/08/19 12:31) Home Medications: Home Medications Medication Instructions Recorded Confirmed Last Taken Type No Known Home Medications [No 03/10/19 03/10/19 Unknown History Reported Home Medications] Active Medications: Generic Name Dose Route Start Last Admin Trade Name Freq PRN Reason Stop Dose Admin Acetaminophen 650 mg 03/09/19 13:00 03/12/19 06:50 Tylenol HI 650 mg Q4H PRN Administration Pain, Mild (1-3) Albuterol 2.5 mg 03/08/19 14:56 Proventil IH Q3HRT PRN Shortness Of Breath Dextrose 50 ml 03/09/19 01:34 D50w (25gm) Syringe IV PRN PRN Hypoglycemia Hydrophilic Ointment 1 applic 03/08/19 22:51 Vaseline Lip Therapy TP Q2HR PRN Dry Lips Sodium Chloride 100 mls @ 999 mls/hr 03/13/19 13:20 Nacl 0.9% IV JULIO CESAR PRN Hypotension Sodium Chloride 100 mls @ 999 mls/hr 03/15/19 17:08 Nacl 0.9% IV JULIO CESAR PRN Hypotension Lorazepam 2 mg 03/08/19 14:57 03/18/19 02:55 Ativan IV 2 mg Q1HR PRN Administration CIWA-Ar 8-15 Lorazepam 4 mg 03/17/19 11:38 Ativan IV Q1H PRN CIWA-Ar 16-25 Methylprednisolone Sodium Succinate 40 mg 03/13/19 15:00 03/17/19 16:49 Solu-Medrol IV 40 mg Q24H CHARLIE Administration Metoclopramide HCl 5 mg 03/11/19 09:00 03/17/19 22:52 Reglan IV 5 mg Q6H PRN Administration Nausea And Vomiting Metoprolol Tartrate 5 mg 03/11/19 17:41 03/11/19 20:04 Lopressor IV 5 mg Q6HR PRN Administration Tachyarrhythmias Multi-Ingred Cream/Lotion/Oil/Oint 1 applic 03/08/19 22:51 Artificial Tears Ophth Oint OU Q4HR PRN Dry Eye(s) Pantoprazole Sodium 40 mg 03/17/19 10:00 03/17/19 22:53 Protonix PO 40 mg BID CHARLIE Administration Potassium Chloride 40 meq 03/18/19 10:00 K-Dur PO 03/18/19 16:01 Q6H CHARLIE Sodium Chloride 10 ml 03/08/19 22:00 03/17/19 22:53 Sodium Chloride Flush Syringe 10 Ml IV 10 ml BID CHARLIE Administration Sodium Chloride 10 ml 03/08/19 14:56 Sodium Chloride Flush Syringe 10 Ml IV PRN PRN LINE FLUSH
[2019-03-18] MEDS: K-DUR PO SCH ×2 (10:38→18:37)
[2019-03-18] MEDS: PROTONIX PO SCH ×2 (10:38→21:58)
--- NOTE | 2019-03-18 10:59 | Progress Note ---
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 GI bleed (esophageal varices); hemorrhagic shock; Ac. hypoxemic resp failure; Possible septic shock; Severe lactic acidosis; H/O alcohol abuse disorder; Acute renal failure,ATN ; Hypernatremia Seen and examined at bedside; 24hour events reviewed; nursing and respiratory care staff consulted; no adverse overnight events reported to me; no further active bleeding noted.Vitals, labs, medications, chart reviewed Sitting up in bed, not in any distress, no fevers, no chills. Denies any nausea or vomiting, no diarrhea Doing well post extubation Objective Vital Signs - 12hr 03/17/19 03/18/19 03/18/19 23:10 02:38 05:59 Temperature 99.8 F H 98.2 F Pulse Rate 104 H 76 75 Respiratory 20 20 20 Rate Blood Pressure 149/93 123/77 O2 Sat by Pulse 95 100 90 Oximetry Constitutional: no acute distress, alert Eyes: injected ENT: oropharynx moist Neck: supple, no lymphadenopathy, no JVD Effort: normal Ascultation: Bilateral: clear, diminished breath sounds Percussion: Bilateral: not dull Cardiovascular: regular rate and rhythm, other (S1,S2, no murmurs, gallops or rubs) Gastrointestinal: normoactive bowel sounds, soft, non-tender, non-distended Integumentary: normal Extremities: no cyanosis, pink and warm, pulses normal, no ischemia or petechiae Neurologic: normal mental status, non-focal exam, pupils equal and round, CN II- XII normal, motor strength normal and Psychiatric: mood appropriate, affect normal CBC and BMP: 03/19/19 07:32 03/19/19 07:32 ABG, PT/INR, D-dimer: ABG POC ABG pH 7.574 (7.35-7.45) H 03/15/19 04:45 ABG pH 7.469 pH Units (7.350-7.450) H 03/16/19 10:08 ABG pCO2 34.4 mm Hg 03/16/19 10:08 POC ABG pO2 123 (80-105) H 03/15/19 04:45 ABG pO2 75.8 mm Hg (80.0-90.0) L 03/16/19 10:08 POC ABG HCO3 25.1 (22-26 mml/L) 03/15/19 04:45 POC ABG Total CO2 26 (23-27mmol/L) 03/15/19 04:45 POC ABG O2 Sat 99 03/15/19 04:45 ABG O2 Saturation 96.9 % (95.0-99.0) 03/16/19 10:08 PT/INR, D-dimer PT 18.5 Sec. (12.2-14.9) H 03/15/19 01:00 INR 1.58 (0.87-1.13) H 03/15/19 01:00 1494.02 ng/mlDDU (0-234) H 03/09/19 13:50 Abnormal lab findings: Abnormal Labs 03/08/19 03/08/19 03/08/19 09:34 12:57 12:59 WBC RBC 3.14 L Hgb 11.3 L Hct 33.3 L MCV 106 H MCH 36 H MCHC RDW 18.5 H Plt Count 61 L Lymph # Seg Neutrophils % Seg Neuts % (Manual) Lymphocytes % (Manual) 50.0 H Monocytes % (Manual) Eosinophils % (Manual) Basophils % (Manual) Nucleated RBC % Seg Neutrophils # Man Lymphocytes # (Manual) Monocytes # (Manual) PT 16.9 H INR 1.41 H APTT Fibrinogen D-Dimer POC ABG pH ABG pH POC ABG pCO2 POC ABG pO2 ABG pO2 ABG Hemoglobin Oxyhemoglobin Sodium Potassium Chloride Carbon Dioxide BUN Creatinine Glucose POC Glucose Lactic Acid Calcium Phosphorus Iron TIBC Ferritin Total Bilirubin Direct Bilirubin AST ALT Total Protein Albumin Lipase Vitamin B12 Urine pH Urine WBC (Auto) Plasma/Serum Alcohol 0.34 H Miscellaneous Test Crossmatch 03/08/19 03/08/19 03/08/19 13:12 13:14 14:21 WBC RBC Hgb Hct MCV MCH MCHC RDW Plt Count Lymph # Seg Neutrophils % Seg Neuts % (Manual) Lymphocytes % (Manual) Monocytes % (Manual) Eosinophils % (Manual) Basophils % (Manual) Nucleated RBC % Seg Neutrophils # Man Lymphocytes # (Manual) Monocytes # (Manual) PT INR APTT Fibrinogen D-Dimer POC ABG pH ABG pH POC ABG pCO2 POC ABG pO2 ABG pO2 ABG Hemoglobin Oxyhemoglobin Sodium Potassium Chloride 89.4 L Carbon Dioxide 8 L* BUN Creatinine Glucose 74 L POC Glucose Lactic Acid Calcium Phosphorus Iron TIBC Ferritin Total Bilirubin 4.70 H Direct Bilirubin AST 611 H ALT 153 H Total Protein Albumin Lipase Vitamin B12 Urine pH Urine WBC (Auto) 18.0 H Plasma/Serum Alcohol Miscellaneous Test Crossmatch See Detail 03/08/19 03/08/19 03/08/19 20:51 20:51 22:29 WBC 17.0 H RBC 2.21 L Hgb 8.0 L D Hct 26.8 L D MCV 121 H MCH 36 H MCHC 30 L RDW 20.5 H Plt Count 84 L Lymph # Seg Neutrophils % Seg Neuts % (Manual) 83.0 H Lymphocytes % (Manual) 8.0 L Monocytes % (Manual) 9.0 H Eosinophils % (Manual) Basophils % (Manual) Nucleated RBC % 1.0 H Seg Neutrophils # Man 14.1 H Lymphocytes # (Manual) Monocytes # (Manual) 1.5 H PT INR APTT Fibrinogen D-Dimer POC ABG pH ABG pH POC ABG pCO2 POC ABG pO2 ABG pO2 ABG Hemoglobin Oxyhemoglobin Sodium Potassium 7.0 H* D Chloride 90.7 L Carbon Dioxide 3 L* BUN Creatinine 1.6 H Glucose 60 L POC Glucose 48 L Lactic Acid Calcium 8.0 L Phosphorus Iron TIBC Ferritin Total Bilirubin 5.00 H Direct Bilirubin AST 1815 H ALT 399 H Total Protein Albumin 3.7 L Lipase Vitamin B12 Urine pH Urine WBC (Auto) Plasma/Serum Alcohol Miscellaneous Test Crossmatch 03/08/19 03/08/19 03/08/19 22:43 23:00 23:10 WBC RBC Hgb Hct MCV MCH MCHC RDW Plt Count Lymph # Seg Neutrophils % Seg Neuts % (Manual) Lymphocytes % (Manual) Monocytes % (Manual) Eosinophils % (Manual) Basophils % (Manual) Nucleated RBC % Seg Neutrophils # Man Lymphocytes # (Manual) Monocytes # (Manual) PT INR APTT Fibrinogen D-Dimer POC ABG pH ABG pH POC ABG pCO2 POC ABG pO2 ABG pO2 ABG Hemoglobin Oxyhemoglobin Sodium Potassium 7.9 H* Chloride 86.4 L Carbon Dioxide 9 L* BUN Creatinine 1.7 H Glucose 314 H POC Glucose Lactic Acid 23.50 H* Calcium Phosphorus 8.60 H Iron TIBC Ferritin Total Bilirubin Direct Bilirubin AST ALT Total Protein Albumin Lipase Vitamin B12 Urine pH Urine WBC (Auto) Plasma/Serum Alcohol Miscellaneous Test Crossmatch 03/08/19 03/09/19 03/09/19 23:50 00:00 00:31 WBC RBC Hgb Hct MCV MCH MCHC RDW Plt Count Lymph # Seg Neutrophils % Seg Neuts % (Manual) Lymphocytes % (Manual) Monocytes % (Manual) Eosinophils % (Manual) Basophils % (Manual) Nucleated RBC % Seg Neutrophils # Man Lymphocytes # (Manual) Monocytes # (Manual) PT INR APTT Fibrinogen D-Dimer POC ABG pH 7.120 L ABG pH POC ABG pCO2 30.7 L POC ABG pO2 130 H ABG pO2 ABG Hemoglobin Oxyhemoglobin Sodium Potassium 6.3 H* D Chloride 93.7 L Carbon Dioxide 11 L BUN 21 H Creatinine 1.7 H Glucose 219 H POC Glucose 206 H Lactic Acid Calcium 8.2 L Phosphorus Iron TIBC Ferritin Total Bilirubin Direct Bilirubin AST ALT Total Protein Albumin Lipase Vitamin B12 Urine pH Urine WBC (Auto) Plasma/Serum Alcohol Miscellaneous Test Crossmatch 03/09/19 03/09/19 03/09/19 00:47 01:45 02:02 WBC RBC 1.72 L Hgb 6.3 L Hct 20.0 L D MCV 117 H MCH 37 H MCHC 31 L RDW 20.9 H Plt Count 62 L Lymph # Seg Neutrophils % Seg Neuts % (Manual) 93.0 H Lymphocytes % (Manual) 6.0 L Monocytes % (Manual) Eosinophils % (Manual) Basophils % (Manual) Nucleated RBC % 1.0 H Seg Neutrophils # Man 9.6 H Lymphocytes # (Manual) 0.6 L Monocytes # (Manual) PT INR APTT Fibrinogen D-Dimer POC ABG pH ABG pH POC ABG pCO2 31.8 L POC ABG pO2 142 H ABG pO2 ABG Hemoglobin Oxyhemoglobin Sodium Potassium Chloride Carbon Dioxide BUN Creatinine Glucose POC Glucose 182 H Lactic Acid Calcium Phosphorus Iron TIBC Ferritin Total Bilirubin Direct Bilirubin AST ALT Total Protein Albumin Lipase Vitamin B12 Urine pH Urine WBC (Auto) Plasma/Serum Alcohol Miscellaneous Test Crossmatch 03/09/19 03/09/19 03/09/19 02:10 02:30 03:00 WBC RBC Hgb Hct MCV MCH MCHC RDW Plt Count Lymph # Seg Neutrophils % Seg Neuts % (Manual) Lymphocytes % (Manual) Monocytes % (Manual) Eosinophils % (Manual) Basophils % (Manual) Nucleated RBC % Seg Neutrophils # Man Lymphocytes # (Manual) Monocytes # (Manual) PT INR APTT Fibrinogen D-Dimer POC ABG pH ABG pH POC ABG pCO2 POC ABG pO2 ABG pO2 ABG Hemoglobin Oxyhemoglobin Sodium 150 H D Potassium Chloride Carbon Dioxide BUN Creatinine Glucose 177 H POC Glucose 178 H Lactic Acid Calcium 10.5 H D Phosphorus Iron 208 H TIBC 185 L Ferritin Total Bilirubin Direct Bilirubin AST ALT Total Protein Albumin Lipase Vitamin B12 Urine pH Urine WBC (Auto) Plasma/Serum Alcohol Miscellaneous Test Crossmatch 03/09/19 03/09/19 03/09/19 04:16 05:46 07:47 WBC RBC 1.06 L Hgb 3.9 L* Hct 11.7 L* D MCV 111 H MCH 37 H MCHC RDW 20.0 H Plt Count 52 L Lymph # Seg Neutrophils % 79.1 H Seg Neuts % (Manual) Lymphocytes % (Manual) Monocytes % (Manual) Eosinophils % (Manual) Basophils % (Manual) Nucleated RBC % Seg Neutrophils # Man Lymphocytes # (Manual) Monocytes # (Manual) PT INR APTT Fibrinogen D-Dimer POC ABG pH ABG pH POC ABG pCO2 POC ABG pO2 ABG pO2 ABG Hemoglobin Oxyhemoglobin Sodium Potassium Chloride Carbon Dioxide BUN Creatinine Glucose POC Glucose 201 H 176 H Lactic Acid Calcium Phosphorus Iron TIBC Ferritin Total Bilirubin Direct Bilirubin AST ALT Total Protein Albumin Lipase Vitamin B12 Urine pH Urine WBC (Auto) Plasma/Serum Alcohol Miscellaneous Test Crossmatch 03/09/19 03/09/19 03/09/19 07:48 07:48 13:50 WBC RBC 2.69 L Hgb 8.9 L D Hct 25.8 L D MCV 96 H MCH 33 H MCHC 35 H RDW 17.1 H Plt Count 49 L Lymph # Seg Neutrophils % 79.1 H Seg Neuts % (Manual) Lymphocytes % (Manual) Monocytes % (Manual) Eosinophils % (Manual) Basophils % (Manual) Nucleated RBC % Seg Neutrophils # Man Lymphocytes # (Manual) Monocytes # (Manual) PT INR APTT Fibrinogen D-Dimer POC ABG pH ABG pH POC ABG pCO2 POC ABG pO2 ABG pO2 ABG Hemoglobin Oxyhemoglobin Sodium 154 H Potassium Chloride 111.2 H Carbon Dioxide 18 L BUN 22 H Creatinine 2.1 H Glucose 131 H POC Glucose Lactic Acid 19.10 H* Calcium Phosphorus Iron TIBC Ferritin Total Bilirubin Direct Bilirubin AST ALT Total Protein Albumin Lipase Vitamin B12 Urine pH Urine WBC (Auto) Plasma/Serum Alcohol Miscellaneous Test Crossmatch 03/09/19 03/09/19 03/09/19 13:50 14:20 16:08 WBC RBC Hgb Hct MCV MCH MCHC RDW Plt Count Lymph # Seg Neutrophils % Seg Neuts % (Manual) Lymphocytes % (Manual) Monocytes % (Manual) Eosinophils % (Manual) Basophils % (Manual) Nucleated RBC % Seg Neutrophils # Man Lymphocytes # (Manual) Monocytes # (Manual) PT 28.2 H INR 2.70 H APTT 41.8 H Fibrinogen 81 L* D-Dimer 1494.02 H POC ABG pH ABG pH POC ABG pCO2 POC ABG pO2 ABG pO2 ABG Hemoglobin Oxyhemoglobin Sodium Potassium Chloride Carbon Dioxide BUN Creatinine Glucose POC Glucose 188 H 235 H Lactic Acid Calcium Phosphorus Iron TIBC Ferritin Total Bilirubin Direct Bilirubin AST ALT Total Protein Albumin Lipase Vitamin B12 Urine pH Urine WBC (Auto) Plasma/Serum Alcohol Miscellaneous Test Crossmatch 03/09/19 03/09/19 03/09/19 17:55 23:26 Unknown WBC RBC Hgb Hct MCV MCH MCHC RDW Plt Count Lymph # Seg Neutrophils % Seg Neuts % (Manual) Lymphocytes % (Manual) Monocytes % (Manual) Eosinophils % (Manual) Basophils % (Manual) Nucleated RBC % Seg Neutrophils # Man Lymphocytes # (Manual) Monocytes # (Manual) PT INR APTT Fibrinogen D-Dimer POC ABG pH ABG pH POC ABG pCO2 POC ABG pO2 ABG pO2 ABG Hemoglobin Oxyhemoglobin Sodium Potassium Chloride Carbon Dioxide BUN Creatinine Glucose POC Glucose 233 H 236 H Lactic Acid Calcium Phosphorus Iron TIBC Ferritin Total Bilirubin Direct Bilirubin AST ALT Total Protein Albumin Lipase 385 H Vitamin B12 Urine pH Urine WBC (Auto) Plasma/Serum Alcohol Miscellaneous Test Crossmatch 03/10/19 03/10/19 03/10/19 00:04 03:36 03:36 WBC RBC 2.11 L Hgb 7.8 L 7.1 L Hct 22.0 L 19.7 L* MCV MCH 34 H MCHC 36 H RDW 17.9 H Plt Count 45 L Lymph # Seg Neutrophils % 73.6 H Seg Neuts % (Manual) 90.0 H Lymphocytes % (Manual) 3.0 L Monocytes % (Manual) Eosinophils % (Manual) Basophils % (Manual) Nucleated RBC % 3.0 H Seg Neutrophils # Man Lymphocytes # (Manual) 0.2 L Monocytes # (Manual) PT INR APTT Fibrinogen D-Dimer POC ABG pH ABG pH POC ABG pCO2 POC ABG pO2 ABG pO2 ABG Hemoglobin Oxyhemoglobin Sodium 150 H Potassium 3.3 L D Chloride 113.2 H Carbon Dioxide BUN 30 H Creatinine 3.4 H D Glucose 196 H POC Glucose Lactic Acid Calcium 8.2 L Phosphorus Iron TIBC Ferritin Total Bilirubin Direct Bilirubin AST ALT Total Protein Albumin Lipase Vitamin B12 Urine pH Urine WBC (Auto) Plasma/Serum Alcohol Miscellaneous Test Crossmatch 03/10/19 03/10/19 03/10/19 03:36 03:53 03:56 WBC RBC Hgb Hct MCV MCH MCHC RDW Plt Count Lymph # Seg Neutrophils % Seg Neuts % (Manual) Lymphocytes % (Manual) Monocytes % (Manual) Eosinophils % (Manual) Basophils % (Manual) Nucleated RBC % Seg Neutrophils # Man Lymphocytes # (Manual) Monocytes # (Manual) PT INR APTT Fibrinogen D-Dimer POC ABG pH ABG pH POC ABG pCO2 POC ABG pO2 ABG pO2 94.7 H ABG Hemoglobin 6.5 L Oxyhemoglobin Sodium Potassium Chloride Carbon Dioxide BUN Creatinine Glucose POC Glucose 212 H Lactic Acid Calcium Phosphorus Iron TIBC Ferritin Total Bilirubin 4.90 H Direct Bilirubin 3.9 H AST 6235 H ALT 924 H Total Protein 4.2 L D Albumin 2.5 L Lipase Vitamin B12 Urine pH Urine WBC (Auto) Plasma/Serum Alcohol Miscellaneous Test Crossmatch 03/10/19 03/10/19 03/10/19 05:58 08:12 09:26 WBC RBC Hgb Hct MCV MCH MCHC RDW Plt Count Lymph # Seg Neutrophils % Seg Neuts % (Manual) Lymphocytes % (Manual) Monocytes % (Manual) Eosinophils % (Manual) Basophils % (Manual) Nucleated RBC % Seg Neutrophils # Man Lymphocytes # (Manual) Monocytes # (Manual) PT 29.3 H INR 2.83 H APTT Fibrinogen D-Dimer POC ABG pH ABG pH POC ABG pCO2 POC ABG pO2 ABG pO2 ABG Hemoglobin Oxyhemoglobin Sodium Potassium Chloride Carbon Dioxide BUN Creatinine Glucose POC Glucose 171 H 197 H Lactic Acid Calcium Phosphorus Iron TIBC Ferritin Total Bilirubin Direct Bilirubin AST ALT Total Protein Albumin Lipase Vitamin B12 Urine pH Urine WBC (Auto) Plasma/Serum Alcohol Miscellaneous Test Crossmatch 03/10/19 03/10/19 03/10/19 11:40 14:04 16:18 WBC RBC Hgb 6.7 L Hct 18.8 L* MCV MCH MCHC RDW Plt Count Lymph # Seg Neutrophils % Seg Neuts % (Manual) Lymphocytes % (Manual) Monocytes % (Manual) Eosinophils % (Manual) Basophils % (Manual) Nucleated RBC % Seg Neutrophils # Man Lymphocytes # (Manual) Monocytes # (Manual) PT INR APTT Fibrinogen D-Dimer POC ABG pH ABG pH POC ABG pCO2 POC ABG pO2 ABG pO2 ABG Hemoglobin Oxyhemoglobin Sodium Potassium Chloride Carbon Dioxide BUN Creatinine Glucose POC Glucose 178 H 192 H Lactic Acid Calcium Phosphorus Iron TIBC Ferritin Total Bilirubin Direct Bilirubin AST ALT Total Protein Albumin Lipase Vitamin B12 Urine pH Urine WBC (Auto) Plasma/Serum Alcohol Miscellaneous Test Crossmatch 03/10/19 03/10/19 03/11/19 21:42 22:00 00:05 WBC RBC Hgb 7.4 L Hct 21.1 L MCV MCH MCHC RDW Plt Count Lymph # Seg Neutrophils % Seg Neuts % (Manual) Lymphocytes % (Manual) Monocytes % (Manual) Eosinophils % (Manual) Basophils % (Manual) Nucleated RBC % Seg Neutrophils # Man Lymphocytes # (Manual) Monocytes # (Manual) PT INR APTT Fibrinogen D-Dimer POC ABG pH ABG pH POC ABG pCO2 POC ABG pO2 ABG pO2 ABG Hemoglobin Oxyhemoglobin Sodium Potassium Chloride Carbon Dioxide BUN Creatinine Glucose POC Glucose 174 H 136 H Lactic Acid Calcium Phosphorus Iron TIBC Ferritin Total Bilirubin Direct Bilirubin AST ALT Total Protein Albumin Lipase Vitamin B12 Urine pH Urine WBC (Auto) Plasma/Serum Alcohol Miscellaneous Test Crossmatch 03/11/19 03/11/19 03/11/19 04:04 04:15 04:15 WBC RBC 2.28 L Hgb 7.4 L Hct 20.8 L MCV MCH 33 H MCHC 36 H RDW 18.4 H Plt Count 38 L Lymph # 1.1 L Seg Neutrophils % 72.7 H Seg Neuts % (Manual) Lymphocytes % (Manual) Monocytes % (Manual) Eosinophils % (Manual) Basophils % (Manual) Nucleated RBC % Seg Neutrophils # Man Lymphocytes # (Manual) Monocytes # (Manual) PT INR APTT Fibrinogen D-Dimer POC ABG pH ABG pH POC ABG pCO2 POC ABG pO2 ABG pO2 ABG Hemoglobin Oxyhemoglobin Sodium 147 H Potassium 3.2 L Chloride 109.2 H Carbon Dioxide BUN 34 H Creatinine 5.0 H Glucose 132 H POC Glucose 133 H Lactic Acid Calcium 7.5 L Phosphorus Iron TIBC Ferritin Total Bilirubin 7.40 H Direct Bilirubin AST 3748 H ALT 864 H Total Protein 4.7 L Albumin 2.5 L Lipase Vitamin B12 Urine pH Urine WBC (Auto) Plasma/Serum Alcohol Miscellaneous Test Crossmatch 03/11/19 03/11/19 03/11/19 04:25 08:28 12:03 WBC RBC Hgb Hct MCV MCH MCHC RDW Plt Count Lymph # Seg Neutrophils % Seg Neuts % (Manual) Lymphocytes % (Manual) Monocytes % (Manual) Eosinophils % (Manual) Basophils % (Manual) Nucleated RBC % Seg Neutrophils # Man Lymphocytes # (Manual) Monocytes # (Manual) PT INR APTT Fibrinogen D-Dimer POC ABG pH ABG pH 7.467 H POC ABG pCO2 POC ABG pO2 ABG pO2 69.6 L ABG Hemoglobin 7.4 L Oxyhemoglobin 94.3 L Sodium Potassium Chloride Carbon Dioxide BUN Creatinine Glucose POC Glucose 128 H 122 H Lactic Acid Calcium Phosphorus Iron TIBC Ferritin Total Bilirubin Direct Bilirubin AST ALT Total Protein Albumin Lipase Vitamin B12 Urine pH Urine WBC (Auto) Plasma/Serum Alcohol Miscellaneous Test Crossmatch 03/11/19 03/11/19 03/11/19 17:01 20:09 23:58 WBC RBC Hgb Hct MCV MCH MCHC RDW Plt Count Lymph # Seg Neutrophils % Seg Neuts % (Manual) Lymphocytes % (Manual) Monocytes % (Manual) Eosinophils % (Manual) Basophils % (Manual) Nucleated RBC % Seg Neutrophils # Man Lymphocytes # (Manual) Monocytes # (Manual) PT INR APTT Fibrinogen D-Dimer POC ABG pH ABG pH POC ABG pCO2 POC ABG pO2 ABG pO2 ABG Hemoglobin Oxyhemoglobin Sodium Potassium Chloride Carbon Dioxide BUN Creatinine Glucose POC Glucose 135 H 155 H 119 H Lactic Acid Calcium Phosphorus Iron TIBC Ferritin Total Bilirubin Direct Bilirubin AST ALT Total Protein Albumin Lipase Vitamin B12 Urine pH Urine WBC (Auto) Plasma/Serum Alcohol Miscellaneous Test Crossmatch 03/12/19 03/12/19 03/12/19 03:00 04:10 05:24 WBC RBC Hgb Hct MCV MCH MCHC RDW Plt Count Lymph # Seg Neutrophils % Seg Neuts % (Manual) Lymphocytes % (Manual) Monocytes % (Manual) Eosinophils % (Manual) Basophils % (Manual) Nucleated RBC % Seg Neutrophils # Man Lymphocytes # (Manual) Monocytes # (Manual) PT INR APTT Fibrinogen D-Dimer POC ABG pH ABG pH 7.467 H POC ABG pCO2 POC ABG pO2 ABG pO2 77.8 L ABG Hemoglobin 7.3 L Oxyhemoglobin 94.2 L Sodium Potassium Chloride Carbon Dioxide BUN Creatinine Glucose POC Glucose 137 H 137 H Lactic Acid Calcium Phosphorus Iron TIBC Ferritin Total Bilirubin Direct Bilirubin AST ALT Total Protein Albumin Lipase Vitamin B12 Urine pH Urine WBC (Auto) Plasma/Serum Alcohol Miscellaneous Test Crossmatch 03/12/19 03/12/19 03/12/19 07:40 07:40 08:40 WBC RBC 2.24 L Hgb 7.4 L Hct 20.9 L MCV MCH 33 H MCHC 35 H RDW 19.0 H Plt Count 45 L Lymph # Seg Neutrophils % Seg Neuts % (Manual) 76.0 H Lymphocytes % (Manual) Monocytes % (Manual) Eosinophils % (Manual) Basophils % (Manual) Nucleated RBC % 11.0 H Seg Neutrophils # Man Lymphocytes # (Manual) 1.1 L Monocytes # (Manual) PT 22.4 H INR 2.02 H APTT 45.4 H Fibrinogen D-Dimer POC ABG pH ABG pH POC ABG pCO2 POC ABG pO2 ABG pO2 ABG Hemoglobin Oxyhemoglobin Sodium Potassium Chloride Carbon Dioxide BUN Creatinine Glucose POC Glucose 132 H Lactic Acid Calcium Phosphorus Iron TIBC Ferritin Total Bilirubin Direct Bilirubin AST ALT Total Protein Albumin Lipase Vitamin B12 Urine pH Urine WBC (Auto) Plasma/Serum Alcohol Miscellaneous Test Crossmatch 03/12/19 03/12/19 03/12/19 12:00 14:54 16:51 WBC RBC Hgb Hct MCV MCH MCHC RDW Plt Count Lymph # Seg Neutrophils % Seg Neuts % (Manual) Lymphocytes % (Manual) Monocytes % (Manual) Eosinophils % (Manual) Basophils % (Manual) Nucleated RBC % Seg Neutrophils # Man Lymphocytes # (Manual) Monocytes # (Manual) PT INR APTT Fibrinogen D-Dimer POC ABG pH ABG pH POC ABG pCO2 POC ABG pO2 ABG pO2 ABG Hemoglobin Oxyhemoglobin Sodium Potassium Chloride Carbon Dioxide BUN Creatinine Glucose POC Glucose 160 H 122 H Lactic Acid Calcium Phosphorus Iron TIBC Ferritin Total Bilirubin Direct Bilirubin AST ALT Total Protein Albumin Lipase Vitamin B12 Urine pH Urine WBC (Auto) Plasma/Serum Alcohol Miscellaneous Test Flexitest 1 H Crossmatch 03/12/19 03/12/19 03/13/19 Unknown Unknown 03:45 WBC RBC Hgb Hct MCV MCH MCHC RDW Plt Count Lymph # Seg Neutrophils % Seg Neuts % (Manual) Lymphocytes % (Manual) Monocytes % (Manual) Eosinophils % (Manual) Basophils % (Manual) Nucleated RBC % Seg Neutrophils # Man Lymphocytes # (Manual) Monocytes # (Manual) PT INR APTT Fibrinogen D-Dimer POC ABG pH ABG pH POC ABG pCO2 POC ABG pO2 ABG pO2 62.5 L ABG Hemoglobin 7.6 L Oxyhemoglobin 92.3 L Sodium Potassium Chloride Carbon Dioxide BUN 26 H Creatinine 4.1 H Glucose 128 H POC Glucose Lactic Acid Calcium 7.0 L Phosphorus Iron TIBC Ferritin Total Bilirubin 8.90 H Direct Bilirubin 7.4 H AST 2116 H ALT 767 H Total Protein 5.1 L Albumin 2.3 L Lipase Vitamin B12 Urine pH Urine WBC (Auto) Plasma/Serum Alcohol Miscellaneous Test Crossmatch 03/13/19 03/13/19 03/13/19 04:11 04:11 08:04 WBC 4.2 L RBC 2.09 L Hgb 6.8 L 7.0 L Hct 19.6 L* 20.0 L MCV MCH 33 H MCHC 35 H RDW 20.2 H Plt Count 44 L Lymph # Seg Neutrophils % Seg Neuts % (Manual) Lymphocytes % (Manual) 7.0 L Monocytes % (Manual) 32.0 H Eosinophils % (Manual) 5.0 H Basophils % (Manual) 2.0 H Nucleated RBC % 12.0 H Seg Neutrophils # Man 0.0 L Lymphocytes # (Manual) 0.0 L Monocytes # (Manual) PT INR APTT Fibrinogen D-Dimer POC ABG pH ABG pH POC ABG pCO2 POC ABG pO2 ABG pO2 ABG Hemoglobin Oxyhemoglobin Sodium Potassium 3.0 L Chloride Carbon Dioxide BUN 27 H Creatinine 3.7 H Glucose POC Glucose Lactic Acid Calcium 6.3 L Phosphorus Iron TIBC Ferritin Total Bilirubin Direct Bilirubin AST ALT Total Protein Albumin Lipase Vitamin B12 Urine pH Urine WBC (Auto) Plasma/Serum Alcohol Miscellaneous Test Crossmatch 03/13/19 03/13/19 03/13/19 12:04 17:05 21:23 WBC RBC Hgb Hct MCV MCH MCHC RDW Plt Count Lymph # Seg Neutrophils % Seg Neuts % (Manual) Lymphocytes % (Manual) Monocytes % (Manual) Eosinophils % (Manual) Basophils % (Manual) Nucleated RBC % Seg Neutrophils # Man Lymphocytes # (Manual) Monocytes # (Manual) PT INR APTT Fibrinogen D-Dimer POC ABG pH ABG pH POC ABG pCO2 POC ABG pO2 ABG pO2 ABG Hemoglobin Oxyhemoglobin Sodium Potassium Chloride Carbon Dioxide BUN Creatinine Glucose POC Glucose 114 H 111 H 145 H Lactic Acid Calcium Phosphorus Iron TIBC Ferritin Total Bilirubin Direct Bilirubin AST ALT Total Protein Albumin Lipase Vitamin B12 Urine pH Urine WBC (Auto) Plasma/Serum Alcohol Miscellaneous Test Crossmatch 03/14/19 03/14/19 03/14/19 00:00 04:10 05:25 WBC 4.2 L RBC 2.20 L Hgb 7.3 L Hct 21.0 L MCV 96 H MCH 33 H MCHC 35 H RDW 20.1 H Plt Count 65 L Lymph # Seg Neutrophils % Seg Neuts % (Manual) Lymphocytes % (Manual) 6.0 L Monocytes % (Manual) 18 H Eosinophils % (Manual) Basophils % (Manual) Nucleated RBC % Seg Neutrophils # Man Lymphocytes # (Manual) 0.3 L Monocytes # (Manual) PT INR APTT Fibrinogen D-Dimer POC ABG pH ABG pH POC ABG pCO2 POC ABG pO2 ABG pO2 ABG Hemoglobin Oxyhemoglobin Sodium Potassium Chloride Carbon Dioxide BUN Creatinine Glucose POC Glucose 173 H 185 H Lactic Acid Calcium Phosphorus Iron TIBC Ferritin Total Bilirubin Direct Bilirubin AST ALT Total Protein Albumin Lipase Vitamin B12 Urine pH Urine WBC (Auto) Plasma/Serum Alcohol Miscellaneous Test Crossmatch 03/14/19 03/14/19 03/14/19 05:25 07:34 12:05 WBC RBC Hgb Hct MCV MCH MCHC RDW Plt Count Lymph # Seg Neutrophils % Seg Neuts % (Manual) Lymphocytes % (Manual) Monocytes % (Manual) Eosinophils % (Manual) Basophils % (Manual) Nucleated RBC % Seg Neutrophils # Man Lymphocytes # (Manual) Monocytes # (Manual) PT INR APTT Fibrinogen D-Dimer POC ABG pH ABG pH POC ABG pCO2 POC ABG pO2 ABG pO2 ABG Hemoglobin Oxyhemoglobin Sodium Potassium Chloride 108.2 H Carbon Dioxide BUN 28 H Creatinine 2.4 H Glucose 179 H POC Glucose 190 H 177 H Lactic Acid Calcium 6.5 L Phosphorus Iron TIBC Ferritin Total Bilirubin 9.00 H Direct Bilirubin AST 321 H ALT 341 H Total Protein 5.2 L Albumin 2.2 L Lipase Vitamin B12 Urine pH Urine WBC (Auto) Plasma/Serum Alcohol Miscellaneous Test Crossmatch 03/14/19 03/14/19 03/14/19 16:02 20:13 23:28 WBC RBC Hgb Hct MCV MCH MCHC RDW Plt Count Lymph # Seg Neutrophils % Seg Neuts % (Manual) Lymphocytes % (Manual) Monocytes % (Manual) Eosinophils % (Manual) Basophils % (Manual) Nucleated RBC % Seg Neutrophils # Man Lymphocytes # (Manual) Monocytes # (Manual) PT INR APTT Fibrinogen D-Dimer POC ABG pH ABG pH POC ABG pCO2 POC ABG pO2 ABG pO2 ABG Hemoglobin Oxyhemoglobin Sodium Potassium Chloride Carbon Dioxide BUN Creatinine Glucose POC Glucose 140 H 145 H 140 H Lactic Acid Calcium Phosphorus Iron TIBC Ferritin Total Bilirubin Direct Bilirubin AST ALT Total Protein Albumin Lipase Vitamin B12 Urine pH Urine WBC (Auto) Plasma/Serum Alcohol Miscellaneous Test Crossmatch 03/14/19 03/15/19 03/15/19 Unknown 01:00 04:08 WBC RBC Hgb Hct MCV MCH MCHC RDW Plt Count Lymph # Seg Neutrophils % Seg Neuts % (Manual) Lymphocytes % (Manual) Monocytes % (Manual) Eosinophils % (Manual) Basophils % (Manual) Nucleated RBC % Seg Neutrophils # Man Lymphocytes # (Manual) Monocytes # (Manual) PT 18.5 H INR 1.58 H APTT Fibrinogen D-Dimer POC ABG pH ABG pH POC ABG pCO2 POC ABG pO2 ABG pO2 102.3 H ABG Hemoglobin 9.6 L Oxyhemoglobin 94.9 L Sodium Potassium Chloride Carbon Dioxide BUN Creatinine Glucose POC Glucose 136 H Lactic Acid Calcium Phosphorus Iron TIBC Ferritin Total Bilirubin Direct Bilirubin AST ALT Total Protein Albumin Lipase Vitamin B12 Urine pH Urine WBC (Auto) Plasma/Serum Alcohol Miscellaneous Test Crossmatch 03/15/19 03/15/19 03/15/19 04:45 04:50 04:50 WBC RBC 2.30 L Hgb 7.6 L Hct 22.2 L MCV 97 H MCH 33 H MCHC RDW 22.5 H Plt Count 109 L Lymph # Seg Neutrophils % Seg Neuts % (Manual) 87.0 H Lymphocytes % (Manual) 6.0 L Monocytes % (Manual) Eosinophils % (Manual) Basophils % (Manual) Nucleated RBC % 1.0 H Seg Neutrophils # Man 8.4 H Lymphocytes # (Manual) 0.6 L Monocytes # (Manual) PT INR APTT Fibrinogen D-Dimer POC ABG pH 7.574 H ABG pH POC ABG pCO2 POC ABG pO2 123 H ABG pO2 ABG Hemoglobin Oxyhemoglobin Sodium Potassium Chloride Carbon Dioxide BUN Creatinine Glucose POC Glucose Lactic Acid Calcium Phosphorus Iron TIBC Ferritin 4122.0 H Total Bilirubin Direct Bilirubin AST ALT Total Protein Albumin Lipase Vitamin B12 Urine pH Urine WBC (Auto) Plasma/Serum Alcohol Miscellaneous Test Crossmatch 03/15/19 03/15/19 03/15/19 04:50 04:50 08:22 WBC RBC Hgb Hct MCV MCH MCHC RDW Plt Count Lymph # Seg Neutrophils % Seg Neuts % (Manual) Lymphocytes % (Manual) Monocytes % (Manual) Eosinophils % (Manual) Basophils % (Manual) Nucleated RBC % Seg Neutrophils # Man Lymphocytes # (Manual) Monocytes # (Manual) PT INR APTT Fibrinogen D-Dimer POC ABG pH ABG pH POC ABG pCO2 POC ABG pO2 ABG pO2 ABG Hemoglobin Oxyhemoglobin Sodium 146 H Potassium 3.5 L Chloride 109.7 H Carbon Dioxide BUN 29 H Creatinine 1.8 H Glucose 134 H POC Glucose 132 H Lactic Acid Calcium 6.7 L Phosphorus Iron TIBC Ferritin Total Bilirubin 8.00 H Direct Bilirubin AST 204 H ALT 272 H Total Protein 5.4 L Albumin 2.6 L Lipase Vitamin B12 > 2000 H Urine pH Urine WBC (Auto) Plasma/Serum Alcohol Miscellaneous Test Crossmatch 03/15/19 03/15/19 03/15/19 11:41 12:22 19:55 WBC RBC Hgb Hct MCV MCH MCHC RDW Plt Count Lymph # Seg Neutrophils % Seg Neuts % (Manual) Lymphocytes % (Manual) Monocytes % (Manual) Eosinophils % (Manual) Basophils % (Manual) Nucleated RBC % Seg Neutrophils # Man Lymphocytes # (Manual) Monocytes # (Manual) PT INR APTT Fibrinogen D-Dimer POC ABG pH ABG pH POC ABG pCO2 POC ABG pO2 ABG pO2 ABG Hemoglobin Oxyhemoglobin Sodium Potassium Chloride Carbon Dioxide BUN Creatinine Glucose POC Glucose 122 H 115 H 107 H Lactic Acid Calcium Phosphorus Iron TIBC Ferritin Total Bilirubin Direct Bilirubin AST ALT Total Protein Albumin Lipase Vitamin B12 Urine pH Urine WBC (Auto) Plasma/Serum Alcohol Miscellaneous Test Crossmatch 03/15/19 03/16/19 03/16/19 23:13 03:00 06:00 WBC 16.1 H RBC 2.55 L Hgb 8.4 L Hct 25.2 L MCV 99 H MCH 33 H MCHC RDW 23.7 H Plt Count 123 L Lymph # Seg Neutrophils % Seg Neuts % (Manual) 92.0 H Lymphocytes % (Manual) 5.0 L Monocytes % (Manual) Eosinophils % (Manual) Basophils % (Manual) Nucleated RBC % 4.0 H Seg Neutrophils # Man 14.8 H Lymphocytes # (Manual) 0.8 L Monocytes # (Manual) PT INR APTT Fibrinogen D-Dimer POC ABG pH ABG pH POC ABG pCO2 POC ABG pO2 ABG pO2 ABG Hemoglobin Oxyhemoglobin Sodium Potassium Chloride Carbon Dioxide BUN Creatinine Glucose POC Glucose 133 H 135 H Lactic Acid Calcium Phosphorus Iron TIBC Ferritin Total Bilirubin Direct Bilirubin AST ALT Total Protein Albumin Lipase Vitamin B12 Urine pH Urine WBC (Auto) Plasma/Serum Alcohol Miscellaneous Test Crossmatch 03/16/19 03/16/19 03/16/19 06:00 06:00 10:08 WBC RBC Hgb Hct MCV MCH MCHC RDW Plt Count Lymph # Seg Neutrophils % Seg Neuts % (Manual) Lymphocytes % (Manual) Monocytes % (Manual) Eosinophils % (Manual) Basophils % (Manual) Nucleated RBC % Seg Neutrophils # Man Lymphocytes # (Manual) Monocytes # (Manual) PT INR APTT Fibrinogen D-Dimer POC ABG pH ABG pH 7.469 H POC ABG pCO2 POC ABG pO2 ABG pO2 70.7 L 75.8 L ABG Hemoglobin 7.9 L 7.9 L Oxyhemoglobin 93.2 L 94.5 L Sodium 147 H Potassium 3.4 L Chloride 108.7 H Carbon Dioxide BUN 29 H Creatinine Glucose 114 H POC Glucose Lactic Acid Calcium 7.2 L Phosphorus Iron TIBC Ferritin Total Bilirubin 9.90 H Direct Bilirubin AST 271 H ALT 268 H Total Protein 6.1 L Albumin 2.8 L Lipase Vitamin B12 Urine pH Urine WBC (Auto) Plasma/Serum Alcohol Miscellaneous Test Crossmatch 03/16/19 03/16/19 03/17/19 19:58 23:55 05:09 WBC RBC Hgb Hct MCV MCH MCHC RDW Plt Count Lymph # Seg Neutrophils % Seg Neuts % (Manual) Lymphocytes % (Manual) Monocytes % (Manual) Eosinophils % (Manual) Basophils % (Manual) Nucleated RBC % Seg Neutrophils # Man Lymphocytes # (Manual) Monocytes # (Manual) PT INR APTT Fibrinogen D-Dimer POC ABG pH ABG pH POC ABG pCO2 POC ABG pO2 ABG pO2 ABG Hemoglobin Oxyhemoglobin Sodium Potassium Chloride Carbon Dioxide BUN Creatinine Glucose POC Glucose 196 H 210 H 150 H Lactic Acid Calcium Phosphorus Iron TIBC Ferritin Total Bilirubin Direct Bilirubin AST ALT Total Protein Albumin Lipase Vitamin B12 Urine pH Urine WBC (Auto) Plasma/Serum Alcohol Miscellaneous Test Crossmatch 03/17/19 03/17/19 03/17/19 06:30 06:30 08:45 WBC 15.3 H RBC 2.36 L Hgb 7.7 L Hct 23.0 L MCV 98 H MCH 33 H MCHC RDW 23.1 H Plt Count 116 L Lymph # Seg Neutrophils % Seg Neuts % (Manual) Lymphocytes % (Manual) Monocytes % (Manual) Eosinophils % (Manual) Basophils % (Manual) Nucleated RBC % Seg Neutrophils # Man Lymphocytes # (Manual) Monocytes # (Manual) PT INR APTT Fibrinogen D-Dimer POC ABG pH ABG pH POC ABG pCO2 POC ABG pO2 ABG pO2 ABG Hemoglobin Oxyhemoglobin Sodium Potassium 3.0 L Chloride Carbon Dioxide BUN Creatinine Glucose 128 H POC Glucose 152 H Lactic Acid Calcium 7.3 L Phosphorus Iron TIBC Ferritin Total Bilirubin 9.20 H Direct Bilirubin AST 214 H ALT 225 H Total Protein 5.8 L Albumin 2.4 L Lipase Vitamin B12 Urine pH Urine WBC (Auto) Plasma/Serum Alcohol Miscellaneous Test Crossmatch 03/17/19 03/17/19 03/17/19 11:47 12:30 16:50 WBC RBC Hgb Hct MCV MCH MCHC RDW Plt Count Lymph # Seg Neutrophils % Seg Neuts % (Manual) Lymphocytes % (Manual) Monocytes % (Manual) Eosinophils % (Manual) Basophils % (Manual) Nucleated RBC % Seg Neutrophils # Man Lymphocytes # (Manual) Monocytes # (Manual) PT INR APTT Fibrinogen D-Dimer POC ABG pH ABG pH POC ABG pCO2 POC ABG pO2 ABG pO2 ABG Hemoglobin Oxyhemoglobin Sodium Potassium Chloride Carbon Dioxide BUN Creatinine Glucose POC Glucose 147 H 151 H Lactic Acid Calcium Phosphorus Iron TIBC Ferritin Total Bilirubin Direct Bilirubin AST ALT Total Protein Albumin Lipase Vitamin B12 Urine pH 8.0 H Urine WBC (Auto) Plasma/Serum Alcohol Miscellaneous Test Crossmatch 03/17/19 03/18/19 03/18/19 20:17 04:06 04:06 WBC 16.3 H RBC 2.43 L Hgb 7.9 L Hct 24.0 L MCV 99 H MCH 33 H MCHC RDW 23.1 H Plt Count 127 L Lymph # Seg Neutrophils % Seg Neuts % (Manual) Lymphocytes % (Manual) Monocytes % (Manual) Eosinophils % (Manual) Basophils % (Manual) Nucleated RBC % Seg Neutrophils # Man Lymphocytes # (Manual) Monocytes # (Manual) PT INR APTT Fibrinogen D-Dimer POC ABG pH ABG pH POC ABG pCO2 POC ABG pO2 ABG pO2 ABG Hemoglobin Oxyhemoglobin Sodium Potassium 3.4 L Chloride Carbon Dioxide BUN Creatinine 0.6 L Glucose 153 H POC Glucose 223 H Lactic Acid Calcium 7.8 L Phosphorus Iron TIBC Ferritin Total Bilirubin 10.00 H Direct Bilirubin AST 177 H ALT 208 H Total Protein Albumin 2.5 L Lipase Vitamin B12 Urine pH Urine WBC (Auto) Plasma/Serum Alcohol Miscellaneous Test Crossmatch 03/18/19 07:45 WBC RBC Hgb Hct MCV MCH MCHC RDW Plt Count Lymph # Seg Neutrophils % Seg Neuts % (Manual) Lymphocytes % (Manual) Monocytes % (Manual) Eosinophils % (Manual) Basophils % (Manual) Nucleated RBC % Seg Neutrophils # Man Lymphocytes # (Manual) Monocytes # (Manual) PT INR APTT Fibrinogen D-Dimer POC ABG pH ABG pH POC ABG pCO2 POC ABG pO2 ABG pO2 ABG Hemoglobin Oxyhemoglobin Sodium Potassium Chloride Carbon Dioxide BUN Creatinine Glucose POC Glucose 138 H Lactic Acid Calcium Phosphorus Iron TIBC Ferritin Total Bilirubin Direct Bilirubin AST ALT Total Protein Albumin Lipase Vitamin B12 Urine pH Urine WBC (Auto) Plasma/Serum Alcohol Miscellaneous Test Crossmatch Allied health notes reviewed: nursing
--- NOTE | 2019-03-18 11:18 | Gastroenterology Progress Note ---
Assessment and Plan 1. Variceal bleed - s/p banding. -H/H stable with no evidence of ongoing GI bleed -patient to f/u as outpatient to do surveillance EGD and decide re: B-blockers. 2. Alcoholic hepatitis/cirrhosis -LFTs improving slowly; INR improved -continue prednisolone, possibly for 1 month total, with tapering after 1 wk. -monitor to trend labs and supportive care -patient to f/u as outpatient for further management 3. Nutrition - tolerating diet -no further recommendations at this time; GI will sign off, please call back if needed Subjective Date of service: 03/18/19 Principal diagnosis: GI bleed Interval history: Patient w/o acute distress. Denies abd pain, N/V, or active signs of bleeding overnight or this am. Tolerating diet. Objective - Constitutional Vitals: Temp Pulse Resp BP Pulse Ox 98.2 F 75 20 123/77 90 03/18/19 05:59 03/18/19 05:59 03/18/19 05:59 03/18/19 05:59 03/18/19 05:59 General appearance: no acute distress - Respiratory Respiratory effort: normal - Cardiovascular Rhythm: regular - Gastrointestinal General gastrointestinal: Present: soft, non-tender, non-distended, normal bowel sounds - Neurologic Neurological: alert and oriented x3 - Labs CBC & Chem 7: 03/18/19 04:06 03/18/19 04:06 Labs: Laboratory Results - last 24 hr 03/17/19 03/17/19 03/17/19 11:47 12:30 16:50 WBC RBC Hgb Hct MCV MCH MCHC RDW Plt Count Sodium Potassium Chloride Carbon Dioxide Anion Gap BUN Creatinine Estimated GFR BUN/Creatinine Ratio Glucose POC Glucose 147 H 151 H Calcium Total Bilirubin AST ALT Alkaline Phosphatase Total Protein Albumin Albumin/Globulin Ratio Urine Color Rosa Urine Turbidity Clear Urine pH 8.0 H Ur Specific [place] 1.008 Urine Protein <15 mg/dl Urine Glucose (UA) Neg Urine Ketones Neg Urine Blood Mod Urine Nitrite Neg Urine Bilirubin Neg Urine Urobilinogen < 2.0 Ur Leukocyte Esterase Neg Urine WBC (Auto) 1.0 Urine RBC (Auto) 1.0 03/17/19 03/18/19 03/18/19 20:17 04:06 04:06 WBC 16.3 H RBC 2.43 L Hgb 7.9 L Hct 24.0 L MCV 99 H MCH 33 H MCHC 33 RDW 23.1 H Plt Count 127 L Sodium 138 Potassium 3.4 L Chloride 101.0 Carbon Dioxide 25 Anion Gap 15 BUN 9 Creatinine 0.6 L Estimated GFR > 60 BUN/Creatinine Ratio 15 Glucose 153 H POC Glucose 223 H Calcium 7.8 L Total Bilirubin 10.00 H AST 177 H ALT 208 H Alkaline Phosphatase 110 Total Protein 6.7 Albumin 2.5 L Albumin/Globulin Ratio 0.6 Urine Color Urine Turbidity Urine pH Ur Specific [place] Urine Protein Urine Glucose (UA) Urine Ketones Urine Blood Urine Nitrite Urine Bilirubin Urine Urobilinogen Ur Leukocyte Esterase Urine WBC (Auto) Urine RBC (Auto) 03/18/19 07:45 WBC RBC Hgb Hct MCV MCH MCHC RDW Plt Count Sodium Potassium Chloride Carbon Dioxide Anion Gap BUN Creatinine Estimated GFR BUN/Creatinine Ratio Glucose POC Glucose 138 H Calcium Total Bilirubin AST ALT Alkaline Phosphatase Total Protein Albumin Albumin/Globulin Ratio Urine Color Urine Turbidity Urine pH Ur Specific [place] Urine Protein Urine Glucose (UA) Urine Ketones Urine Blood Urine Nitrite Urine Bilirubin Urine Urobilinogen Ur Leukocyte Esterase Urine WBC (Auto) Urine RBC (Auto)
--- NOTE | 2019-03-18 11:40 | Progress Note ---
History Interval history: He feels better, Extubated yesterday 03/16 Hospitalist Physical - Constitutional Vitals: Temp Pulse Resp BP Pulse Ox 98.2 F 75 20 123/77 90 03/18/19 05:59 03/18/19 05:59 03/18/19 05:59 03/18/19 05:59 03/18/19 05:59 General appearance: Present: no acute distress, other (subconjuctival hemorrhages) Results - Labs CBC & Chem 7: 03/18/19 04:06 03/18/19 04:06 Labs: Laboratory Last Values WBC 16.3 K/mm3 (4.5-11.0) H 03/18/19 04:06 RBC 2.43 M/mm3 (3.65-5.03) L 03/18/19 04:06 Hgb 7.9 gm/dl (11.8-15.2) L 03/18/19 04:06 Hct 24.0 % (35.5-45.6) L 03/18/19 04:06 MCV 99 fl (84-94) H 03/18/19 04:06 MCH 33 pg (28-32) H 03/18/19 04:06 MCHC 33 % (32-34) 03/18/19 04:06 RDW 23.1 % (13.2-15.2) H 03/18/19 04:06 Plt Count 127 K/mm3 (140-440) L 03/18/19 04:06 Lymph % (Auto) 17.4 % (13.4-35.0) 03/11/19 04:15 [place]a % (Auto) Bridge Operator 03/15/19 04:50 Eos % (Auto) 2.7 % (0.0-4.3) 03/11/19 04:15 Baso % (Auto) 0.7 % (0.0-1.8) 03/11/19 04:15 Lymph # 1.1 K/mm3 (1.2-5.4) L 03/11/19 04:15 [place] # 0.4 K/mm3 (0.0-0.8) 03/11/19 04:15 Eos # 0.2 K/mm3 (0.0-0.4) 03/11/19 04:15 Baso # 0.0 K/mm3 (0.0-0.1) 03/11/19 04:15 Add Manual Diff Complete 03/16/19 06:00 Total Counted 100 03/16/19 06:00 Seg Neutrophils % 72.7 % (40.0-70.0) H 03/11/19 04:15 Seg Neuts % (Manual) 92.0 % (40.0-70.0) H 03/16/19 06:00 0 % 03/16/19 06:00 5.0 % (13.4-35.0) L 03/16/19 06:00 Reactive Lymphs % (Man) 0 % 03/16/19 06:00 1.0 % (0.0-7.3) 03/16/19 06:00 0 % (0.0-4.3) 03/16/19 06:00 0 % (0.0-1.8) 03/16/19 06:00 2.0 % 03/16/19 06:00 0 % 03/16/19 06:00 0 % 03/16/19 06:00 0 % 03/16/19 06:00 Nucleated RBC % 4.0 % (0.0-0.9) H 03/16/19 06:00 Seg Neutrophils # 4.4 K/mm3 (1.8-7.7) 03/11/19 04:15 Seg Neutrophils # Man 14.8 K/mm3 (1.8-7.7) H 03/16/19 06:00 Band Neutrophils # 0.0 K/mm3 03/16/19 06:00 0.8 K/mm3 (1.2-5.4) L 03/16/19 06:00 Abs React Lymphs (Man) 0.0 K/mm3 03/16/19 06:00 0.2 K/mm3 (0.0-0.8) 03/16/19 06:00 0.0 K/mm3 (0.0-0.4) 03/16/19 06:00 0.0 K/mm3 (0.0-0.1) 03/16/19 06:00 0.3 K/mm3 03/16/19 06:00 0.0 K/mm3 03/16/19 06:00 0.0 K/mm3 03/16/19 06:00 Blast Cells # 0.0 K/mm3 03/16/19 06:00 Pathologist Review 03/10/19 03:36 WBC Morphology Not Reportable 03/16/19 06:00 Hypersegmented Neuts Not Reportable 03/16/19 06:00 Hyposegmented Neuts Not Reportable 03/16/19 06:00 Hypogranular Neuts Not Reportable 03/16/19 06:00 Not Reportable 03/16/19 06:00 Not Reportable 03/16/19 06:00 Not Reportable 03/16/19 06:00 Not Reportable 03/16/19 06:00 Not Reportable 03/16/19 06:00 Not Reportable 03/16/19 06:00 Consistent w auto 03/16/19 06:00 Not Reportable 03/16/19 06:00 Plt Clumps, EDTA Not Reportable 03/16/19 06:00 Not Reportable 03/16/19 06:00 Not Reportable 03/16/19 06:00 Not Reportable 03/16/19 06:00 Plt Morphology Comment Not Reportable 03/16/19 06:00 RBC Morphology Not Reportable 03/16/19 06:00 Dimorphic RBCs Not Reportable 03/16/19 06:00 Few 03/16/19 06:00 Not Reportable 03/16/19 06:00 Not Reportable 03/16/19 06:00 1+ 03/16/19 06:00 Not Reportable 03/16/19 06:00 Rare 03/16/19 06:00 Not Reportable 03/16/19 06:00 Not Reportable 03/16/19 06:00 Not Reportable 03/16/19 06:00 1+ 03/16/19 06:00 Not Reportable 03/16/19 06:00 Few 03/16/19 06:00 Rare 03/14/19 05:25 Not Reportable 03/16/19 06:00 Not Reportable 03/16/19 06:00 Not Reportable 03/16/19 06:00 Not Reportable 03/16/19 06:00 Not Reportable 03/16/19 06:00 Not Reportable 03/16/19 06:00 Not Reportable 03/16/19 06:00 Acanthocytes (Spur) Not Reportable 03/16/19 06:00 Rouleaux Not Reportable 03/16/19 06:00 Not Reportable 03/16/19 06:00 Not Reportable 03/16/19 06:00 Not Reportable 03/16/19 06:00 Not Reportable 03/16/19 06:00 Hem Pathologist Commnt No 03/16/19 06:00 PT 18.5 Sec. (12.2-14.9) H 03/15/19 01:00 INR 1.58 (0.87-1.13) H 03/15/19 01:00 APTT 45.4 Sec. (24.2-36.6) H 03/12/19 07:40 302 mg/dl (211-480) 03/14/19 05:25 1494.02 ng/mlDDU (0-234) H 03/09/19 13:50 POC ABG pH 7.574 (7.35-7.45) H 03/15/19 04:45 ABG pH 7.469 pH Units (7.350-7.450) H 03/16/19 10:08 POC ABG pCO2 31.8 (35-45) L 03/09/19 02:02 ABG pCO2 34.4 mm Hg 03/16/19 10:08 POC ABG pO2 123 (80-105) H 03/15/19 04:45 ABG pO2 75.8 mm Hg (80.0-90.0) L 03/16/19 10:08 POC ABG HCO3 25.1 (22-26 mml/L) 03/15/19 04:45 ABG HCO3 24.4 mmol/L (20.0-26.0) 03/16/19 10:08 POC ABG Total CO2 26 (23-27mmol/L) 03/15/19 04:45 POC ABG O2 Sat 99 03/15/19 04:45 ABG O2 Saturation 96.9 % (95.0-99.0) 03/16/19 10:08 ABG O2 Content 10.7 (0.0-44) 03/16/19 10:08 POC ABG Base Excess 3 ((-2) - (+3)mmol/L) 03/15/19 04:45 ABG Base Excess 0.9 mmol/L (-2.0-3.0) 03/16/19 10:08 ABG Hemoglobin 7.9 gm/dl (14.0-18.0) L 03/16/19 10:08 ABG Carboxyhemoglobin 1.9 % (0.0-5.0) 03/16/19 10:08 ABG Methemoglobin 0.6 % (0.0-1.5) 03/16/19 10:08 94.5 % (95.0-99.0) L 03/16/19 10:08 40 % 03/16/19 10:08 Sodium 138 mmol/L (137-145) 03/18/19 04:06 Potassium 3.4 mmol/L (3.6-5.0) L 03/18/19 04:06 Chloride 101.0 mmol/L (98-107) 03/18/19 04:06 Carbon Dioxide 25 mmol/L (22-30) 03/18/19 04:06 15 mmol/L 03/18/19 04:06 BUN 9 mg/dL (9-20) 03/18/19 04:06 0.6 mg/dL (0.8-1.5) L 03/18/19 04:06 Estimated GFR > 60 ml/min 03/18/19 04:06 15 % 03/18/19 04:06 Glucose 153 mg/dL (75-100) H 03/18/19 04:06 POC Glucose 138 (70-105) H 03/18/19 07:45 Lactic Acid 19.10 mmol/L (0.7-2.0) H* 03/09/19 07:48 Calcium 7.8 mg/dL (8.4-10.2) L 03/18/19 04:06 Phosphorus 2.80 mg/dL (2.5-4.5) 03/16/19 06:00 Magnesium 2.30 mg/dL (1.7-2.3) 03/16/19 06:00 Iron 208 ug/dL (49-181) H 03/09/19 02:30 TIBC 185 mcg/dL (250-450) L 03/09/19 02:30 4122.0 ng/mL (13.0-400.0) H 03/15/19 04:50 10.00 mg/dL (0.1-1.2) H 03/18/19 04:06 7.4 mg/dL (0-0.2) H 03/12/19 Unknown 1.5 mg/dL 03/12/19 Unknown AST 177 units/L (5-40) H 03/18/19 04:06 ALT 208 units/L (7-56) H 03/18/19 04:06 110 units/L (35-129) 03/18/19 04:06 41.0 umol/L (25-60) 03/12/19 Unknown 6.7 g/dL (6.3-8.2) 03/18/19 04:06 2.5 g/dL (3.9-5) L 03/18/19 04:06 0.6 % 03/18/19 04:06 385 units/L (13-60) H 03/09/19 Unknown Vitamin B12 > 2000 pg/mL (211-911) H 03/15/19 04:50 Rosa (Yellow) 03/17/19 12:30 Clear (Clear) 03/17/19 12:30 8.0 (5.0-7.0) H 03/17/19 12:30 Ur Specific [place] 1.008 (1.003-1.030) 03/17/19 12:30 <15 mg/dl mg/dL (Negative) 03/17/19 12:30 Neg mg/dL (Negative) 03/17/19 12:30 Neg mg/dL (Negative) 03/17/19 12:30 Mod (Negative) 03/17/19 12:30 Neg (Negative) 03/17/19 12:30 Neg (Negative) 03/17/19 12:30 Positive (Negative) 03/08/19 14:21 < 2.0 mg/dL (<2.0) 03/17/19 12:30 Ur Leukocyte Esterase Neg (Negative) 03/17/19 12:30 1.0 /HPF (0.0-6.0) 03/17/19 12:30 1.0 /HPF (0.0-6.0) 03/17/19 12:30 U Epithel Cells (Auto) 4.0 /HPF (0-13.0) 03/08/19 14:21 Few /HPF 03/08/19 14:21 Hyaline Casts 25 /LPF 03/08/19 14:21 3+ /HPF 03/08/19 14:21 Plasma/Serum Alcohol 0.34 % (0-0.07) H 03/08/19 09:34 Hepatitis A IgM Ab Non-reactive (NonReactive) 03/09/19 07:47 Hep Bs Antigen Non-reactive (Negative) 03/09/19 07:47 Hep B Core IgM Ab Non-reactive (NonReactive) 03/09/19 07:47 Non-reactive (NonReactive) 03/09/19 07:47 Flexitest 1 H 03/12/19 14:54 Blood Type AB POSITIVE 03/08/19 13:12 Antibody Screen Negative 03/08/19 13:12 Crossmatch See Detail 03/08/19 13:12 Active Medications - Current Medications Current Medications: Generic Name Dose Route Start Last Admin Trade Name Freq PRN Reason Stop Dose Admin Acetaminophen 650 mg 03/09/19 13:00 03/12/19 06:50 Tylenol GA 650 mg Q4H PRN Administration Pain, Mild (1-3) Albuterol 2.5 mg 03/08/19 14:56 Proventil IH Q3HRT PRN Shortness Of Breath Dextrose 50 ml 03/09/19 01:34 D50w (25gm) Syringe IV PRN PRN Hypoglycemia Hydrophilic Ointment 1 applic 03/08/19 22:51 Vaseline Lip Therapy TP Q2HR PRN Dry Lips Sodium Chloride 100 mls @ 999 mls/hr 03/13/19 13:20 Nacl 0.9% IV JULIO CESAR PRN Hypotension Sodium Chloride 100 mls @ 999 mls/hr 03/15/19 17:08 Nacl 0.9% IV JULIO CESAR PRN Hypotension Lorazepam 2 mg 03/08/19 14:57 03/18/19 02:55 Ativan IV 2 mg Q1HR PRN Administration CIWA-Ar 8-15 Lorazepam 4 mg 03/17/19 11:38 Ativan IV Q1H PRN CIWA-Ar 16-25 Methylprednisolone Sodium Succinate 40 mg 03/13/19 15:00 03/17/19 16:49 Solu-Medrol IV 40 mg Q24H CHARLIE Administration Metoclopramide HCl 5 mg 03/11/19 09:00 03/17/19 22:52 Reglan IV 5 mg Q6H PRN Administration Nausea And Vomiting Metoprolol Tartrate 5 mg 03/11/19 17:41 03/11/19 20:04 Lopressor IV 5 mg Q6HR PRN Administration Tachyarrhythmias Multi-Ingred Cream/Lotion/Oil/Oint 1 applic 03/08/19 22:51 Artificial Tears Ophth Oint OU Q4HR PRN Dry Eye(s) Pantoprazole Sodium 40 mg 03/17/19 10:00 03/18/19 10:38 Protonix PO 40 mg BID CHARLIE Administration Potassium Chloride 40 meq 03/18/19 10:00 03/18/19 10:38 K-Dur PO 03/18/19 16:01 40 meq Q6H CHARLIE Administration Sodium Chloride 10 ml 03/08/19 22:00 03/17/19 22:53 Sodium Chloride Flush Syringe 10 Ml IV 10 ml BID CHARLIE Administration Sodium Chloride 10 ml 03/08/19 14:56 Sodium Chloride Flush Syringe 10 Ml IV PRN PRN LINE FLUSH Nutrition/Malnutrition Assess - Dietary Evaluation Nutrition/Malnutrition Findings: Nutrition Notes Start: 03/09/19 08:45 Freq: Status: Active Protocol: Document 03/17/19 11:06 LM (Rec: 03/17/19 11:25 LM [id number]) Nutrition Notes Initial or Follow up Reassessment Current Diagnosis Acute Kidney Injury Other Pertinent Diagnosis Cirrhosis, esophageal varices, nicotine and ETOH dependance, hematemesis Current Diet Full liquid Labs/Tests K 3.0 BG 128 Pertinent Medications Reviewed Height 5 ft 11 in Weight 87 kg [place] Body Weight (kg) 78.18 BMI 26.7 Subjective/Other Information Pt extubated. Pt's diet advanced to full liquid. Pt ate 100% of his breakfast this AM and tolerating diet. TPN still runing at time of visit. TPN to be d/c'd. Burn Absent Trauma Absent #1 Nutrition Diagnosis Inadequate oral intake Diagnosis Progress(for reassessment Continues documentation) Is patient on ventilator? No Is Patient Ambulatory and/or Out of Bed No REE-([facility]-confined to bed) 222.392 Calculation Used for Recommendations [facility] Additional Notes Protein: 95-159g (1.2-1.6g/kg) Fluids:1ml/kcal Nutrition Intervention Change Diet Order: Continue full liquid and advance diet as tolerated Add Supplement/Snack (indicate name/kcal Nepro BID /protein ) Provides kCal: 850 Provides Protein (gm) 38 Goal #1 Diet advancement Goal #2 Meet at least 75% of energy and protein needs Anticipated Discharge Needs: Regular diet Follow-Up By: 03/19/19 Additional Comments F/U for PO/ONS intakes
[2019-03-18] MEDS: SOLU-Medrol IV SCH (14:32)
[2019-03-18] MEDS: SODIUM CHLORIDE FLUSH SYRINGE 10 ML IV SCH ×2 (14:33→21:59)
--- NOTE | 2019-03-19 07:33 | Hem/Onc Progress Note ---
Assessment and Plan 1. h/o Anemia. Hemoglobin was 3 secondary to gastrointestinal bleed. 2. h/o Thrombocytopenia, likely secondary to consumption and liver disease. 3. h/o Low fibrinogen and elevated PT, PTT, secondary to DIC/consumption. 4. h/o Abnormal liver function test. 5. The patient's blood pressure was low and was on pressors. 6. s/p Intubation at admission. then extubation on 03/16 7. History of cirrhosis. 8. History of alcohol usage and smoking. 9. Esophagogastroduodenoscopy showed varices, status post intervention. 10. The patient got octreotide infusion. 11. s/p cryoprecipitate as fibrinogen level was low. His LFTs were abnormal. Vitamin k may not benefit, we have option of FFPs. There is a mention of chest x-ray for monitoring TRALI. s/p vit k follow labs supportive care for now off vent ptl >100 abn LFTs PT/ PTT better 03/19 clinically better - on medical floor discharge planning OP follow up an option - Patient Problems (1) Thrombocytopenia Status: Acute Subjective Date of service: 03/19/19 Principal diagnosis: low plt Interval history: ambulating Objective - Exam Narrative Exam: Pain - none General appearance not in acute distress Performance status limited self care Eyes - icterus ENT - no bleeding LNs cervical not palpable Neck - no LN Respiratory Normal Breath sounds - decreased air entry bases CVS S1 S2 + Extremities normal temperature General GI Rectal deferred male - deferred Skin warm Musculoskeletal - moves limbs Neurologically awake - communicative - Constitutional Vitals: Last Vital Signs Temp 98.2 F 03/19/19 06:22 Pulse 73 03/19/19 06:22 Resp 17 03/19/19 06:22 BP 136/90 03/19/19 06:22 Pulse Ox 98 03/19/19 06:22 - Labs Lab Results: Laboratory Results - last 24 hr 03/18/19 03/18/19 07:45 11:38 POC Glucose 138 H 157 H Medications & Allergies - Medications Allergies/Adverse Reactions: Allergies No Known Allergies Allergy (Verified 03/08/19 12:31) Home Medications: Home Medications Medication Instructions Recorded Confirmed Last Taken Type Pantoprazole [Protonix TAB] 40 mg PO BID #60 tablet 03/19/19 Unknown Rx predniSONE [Deltasone] 10 mg PO .TAPER #42 tab 03/19/19 Unknown Rx Active Medications: Generic Name Dose Route Start Last Admin Trade Name Freq PRN Reason Stop Dose Admin Acetaminophen 650 mg 03/09/19 13:00 03/12/19 06:50 Tylenol NC 650 mg Q4H PRN Administration Pain, Mild (1-3) Albuterol 2.5 mg 03/08/19 14:56 Proventil IH Q3HRT PRN Shortness Of Breath Hydrophilic Ointment 1 applic 03/08/19 22:51 Vaseline Lip Therapy TP Q2HR PRN Dry Lips Sodium Chloride 100 mls @ 999 mls/hr 03/13/19 13:20 Nacl 0.9% IV JULIO CESAR PRN Hypotension Sodium Chloride 100 mls @ 999 mls/hr 03/15/19 17:08 Nacl 0.9% IV JULIO CESAR PRN Hypotension Lorazepam 2 mg 03/08/19 14:57 03/18/19 02:55 Ativan IV 2 mg Q1HR PRN Administration CIWA-Ar 8-15 Lorazepam 4 mg 03/17/19 11:38 Ativan IV Q1H PRN CIWA-Ar 16-25 Methylprednisolone Sodium Succinate 40 mg 03/13/19 15:00 03/18/19 14:32 Solu-Medrol IV 40 mg Q24H CHARLIE Administration Metoclopramide HCl 5 mg 03/11/19 09:00 03/17/19 22:52 Reglan IV 5 mg Q6H PRN Administration Nausea And Vomiting Metoprolol Tartrate 5 mg 03/11/19 17:41 03/11/19 20:04 Lopressor IV 5 mg Q6HR PRN Administration Tachyarrhythmias Multi-Ingred Cream/Lotion/Oil/Oint 1 applic 03/08/19 22:51 Artificial Tears Ophth Oint OU Q4HR PRN Dry Eye(s) Pantoprazole Sodium 40 mg 03/17/19 10:00 03/18/19 21:58 Protonix PO 40 mg BID CHARLIE Administration Sodium Chloride 10 ml 03/08/19 22:00 03/18/19 21:59 Sodium Chloride Flush Syringe 10 Ml IV 10 ml BID CHARLIE Administration Sodium Chloride 10 ml 03/08/19 14:56 Sodium Chloride Flush Syringe 10 Ml IV PRN PRN LINE FLUSH
[2019-03-19 07:53] LABS: Hematocrit 24.9 % (35.5-45.6); Hemoglobin 8.3 gm/dl (11.8-15.2); Mean Corpuscular HGB Conc 33 % (32-34); Mean Corpuscular Volume 98 fl (84-94); Platelet Count 158 K/mm3 (140-440); Red Blood Count 2.54 M/mm3 (3.65-5.03)
[2019-03-19 08:15] LABS: Red Cell Distribution Width 21.6 % (13.2-15.2)
[2019-03-19 08:23] LABS: Alanine Aminotransferase 184 units/L (7-56); Albumin 2.7 g/dL (3.9-5); BUN/Creatinine Ratio 15; Blood Urea Nitrogen 9 mg/dL (9-20); Calcium 7.4 mg/dL (8.4-10.2); Hemolysis Index 1
[2019-03-19] MEDS: PROTONIX PO SCH (09:59)
[2019-03-19] MEDS: SODIUM CHLORIDE FLUSH SYRINGE 10 ML IV SCH (10:01)
--- NOTE | 2019-03-19 11:41 | Progress Note ---
Assessment and Plan Acute GI bleed due to large esophageal varices, with hemorrhagic shock - s/p EGD by GI, Acute hypoxemic respiratory failure s/p MVS Severe lactic acidosis, improved History of alcohol abuse disorder Acute renal failure, likely ATN/ vasomotor nephropathy-resolved Hypernatremia-resolved Alcoholic hepatic cirrhosis -Continue with supportive blood transfusions and hematinics as indicate -PT/OT, increase activity -Alcohol cessation counselling, polysubstance abuse counselling -Advance diet per GI/[employer] -Supportive care -Discharge planning Subjective Date of service: 03/19/19 Principal diagnosis: low plt - anemia Interval history: Patient is seen today for: Ac. GI bleed (esophageal varices); hemorrhagic shock; Ac. hypoxemic resp failure; Possible septic shock; Severe lactic acidosis; H/O alcohol abuse disorder; Acute renal failure,ATN ; Hypernatremia Seen and examined at bedside; 24hour events reviewed; nursing and respiratory care staff consulted; no adverse overnight events reported to me; no further active bleeding noted.Vitals, labs, medications, chart reviewed Sitting up in bed, not in any distress, no fevers, no chills. Denies any nausea or vomiting, no diarrhea Doing well post extubation Objective Vital Signs - 12hr 03/19/19 03/19/19 03/19/19 06:22 08:45 08:49 Temperature 98.2 F Pulse Rate 73 Pulse Rate [ 62 From Monitor] Respiratory 17 16 Rate Respiratory 16 Rate [Abdomen] Blood Pressure 136/90 O2 Sat by Pulse 98 100 Oximetry 03/19/19 09:59 Temperature Pulse Rate Pulse Rate [ From Monitor] Respiratory Rate Respiratory Rate [Abdomen] Blood Pressure O2 Sat by Pulse 98 Oximetry Constitutional: no acute distress, alert Eyes: injected ENT: oropharynx moist Neck: supple, no lymphadenopathy, no JVD Effort: normal Ascultation: Bilateral: clear, diminished breath sounds, rales, rhonchi (scant) Percussion: Bilateral: not dull Cardiovascular: regular rate and rhythm, other (S1,S2, no murmurs, gallops or rubs) Gastrointestinal: normoactive bowel sounds, soft, non-tender, non-distended Integumentary: normal Extremities: no cyanosis, pink and warm, pulses normal, no ischemia or petechiae Neurologic: normal mental status, non-focal exam, pupils equal and round, CN II- XII normal, motor strength normal and Psychiatric: mood appropriate, affect normal CBC and BMP: 03/19/19 07:32 03/19/19 07:32 ABG, PT/INR, D-dimer: ABG POC ABG pH 7.574 (7.35-7.45) H 03/15/19 04:45 ABG pH 7.469 pH Units (7.350-7.450) H 03/16/19 10:08 ABG pCO2 34.4 mm Hg 03/16/19 10:08 POC ABG pO2 123 (80-105) H 03/15/19 04:45 ABG pO2 75.8 mm Hg (80.0-90.0) L 03/16/19 10:08 POC ABG HCO3 25.1 (22-26 mml/L) 03/15/19 04:45 POC ABG Total CO2 26 (23-27mmol/L) 03/15/19 04:45 POC ABG O2 Sat 99 03/15/19 04:45 ABG O2 Saturation 96.9 % (95.0-99.0) 03/16/19 10:08 PT/INR, D-dimer PT 18.5 Sec. (12.2-14.9) H 03/15/19 01:00 INR 1.58 (0.87-1.13) H 03/15/19 01:00 1494.02 ng/mlDDU (0-234) H 03/09/19 13:50 Abnormal lab findings: Abnormal Labs 03/08/19 03/08/19 03/08/19 09:34 12:57 12:59 WBC RBC 3.14 L Hgb 11.3 L Hct 33.3 L MCV 106 H MCH 36 H MCHC RDW 18.5 H Plt Count 61 L Lymph # Seg Neutrophils % Seg Neuts % (Manual) Lymphocytes % (Manual) 50.0 H Monocytes % (Manual) Eosinophils % (Manual) Basophils % (Manual) Nucleated RBC % Seg Neutrophils # Man Lymphocytes # (Manual) Monocytes # (Manual) PT 16.9 H INR 1.41 H APTT Fibrinogen D-Dimer POC ABG pH ABG pH POC ABG pCO2 POC ABG pO2 ABG pO2 ABG Hemoglobin Oxyhemoglobin Sodium Potassium Chloride Carbon Dioxide BUN Creatinine Glucose POC Glucose Lactic Acid Calcium Phosphorus Iron TIBC Ferritin Total Bilirubin Direct Bilirubin AST ALT Total Protein Albumin Lipase Vitamin B12 Urine pH Urine WBC (Auto) Plasma/Serum Alcohol 0.34 H Miscellaneous Test Crossmatch 03/08/19 03/08/19 03/08/19 13:12 13:14 14:21 WBC RBC Hgb Hct MCV MCH MCHC RDW Plt Count Lymph # Seg Neutrophils % Seg Neuts % (Manual) Lymphocytes % (Manual) Monocytes % (Manual) Eosinophils % (Manual) Basophils % (Manual) Nucleated RBC % Seg Neutrophils # Man Lymphocytes # (Manual) Monocytes # (Manual) PT INR APTT Fibrinogen D-Dimer POC ABG pH ABG pH POC ABG pCO2 POC ABG pO2 ABG pO2 ABG Hemoglobin Oxyhemoglobin Sodium Potassium Chloride 89.4 L Carbon Dioxide 8 L* BUN Creatinine Glucose 74 L POC Glucose Lactic Acid Calcium Phosphorus Iron TIBC Ferritin Total Bilirubin 4.70 H Direct Bilirubin AST 611 H ALT 153 H Total Protein Albumin Lipase Vitamin B12 Urine pH Urine WBC (Auto) 18.0 H Plasma/Serum Alcohol Miscellaneous Test Crossmatch See Detail 03/08/19 03/08/19 03/08/19 20:51 20:51 22:29 WBC 17.0 H RBC 2.21 L Hgb 8.0 L D Hct 26.8 L D MCV 121 H MCH 36 H MCHC 30 L RDW 20.5 H Plt Count 84 L Lymph # Seg Neutrophils % Seg Neuts % (Manual) 83.0 H Lymphocytes % (Manual) 8.0 L Monocytes % (Manual) 9.0 H Eosinophils % (Manual) Basophils % (Manual) Nucleated RBC % 1.0 H Seg Neutrophils # Man 14.1 H Lymphocytes # (Manual) Monocytes # (Manual) 1.5 H PT INR APTT Fibrinogen D-Dimer POC ABG pH ABG pH POC ABG pCO2 POC ABG pO2 ABG pO2 ABG Hemoglobin Oxyhemoglobin Sodium Potassium 7.0 H* D Chloride 90.7 L Carbon Dioxide 3 L* BUN Creatinine 1.6 H Glucose 60 L POC Glucose 48 L Lactic Acid Calcium 8.0 L Phosphorus Iron TIBC Ferritin Total Bilirubin 5.00 H Direct Bilirubin AST 1815 H ALT 399 H Total Protein Albumin 3.7 L Lipase Vitamin B12 Urine pH Urine WBC (Auto) Plasma/Serum Alcohol Miscellaneous Test Crossmatch 03/08/19 03/08/19 03/08/19 22:43 23:00 23:10 WBC RBC Hgb Hct MCV MCH MCHC RDW Plt Count Lymph # Seg Neutrophils % Seg Neuts % (Manual) Lymphocytes % (Manual) Monocytes % (Manual) Eosinophils % (Manual) Basophils % (Manual) Nucleated RBC % Seg Neutrophils # Man Lymphocytes # (Manual) Monocytes # (Manual) PT INR APTT Fibrinogen D-Dimer POC ABG pH ABG pH POC ABG pCO2 POC ABG pO2 ABG pO2 ABG Hemoglobin Oxyhemoglobin Sodium Potassium 7.9 H* Chloride 86.4 L Carbon Dioxide 9 L* BUN Creatinine 1.7 H Glucose 314 H POC Glucose Lactic Acid 23.50 H* Calcium Phosphorus 8.60 H Iron TIBC Ferritin Total Bilirubin Direct Bilirubin AST ALT Total Protein Albumin Lipase Vitamin B12 Urine pH Urine WBC (Auto) Plasma/Serum Alcohol Miscellaneous Test Crossmatch 03/08/19 03/09/19 03/09/19 23:50 00:00 00:31 WBC RBC Hgb Hct MCV MCH MCHC RDW Plt Count Lymph # Seg Neutrophils % Seg Neuts % (Manual) Lymphocytes % (Manual) Monocytes % (Manual) Eosinophils % (Manual) Basophils % (Manual) Nucleated RBC % Seg Neutrophils # Man Lymphocytes # (Manual) Monocytes # (Manual) PT INR APTT Fibrinogen D-Dimer POC ABG pH 7.120 L ABG pH POC ABG pCO2 30.7 L POC ABG pO2 130 H ABG pO2 ABG Hemoglobin Oxyhemoglobin Sodium Potassium 6.3 H* D Chloride 93.7 L Carbon Dioxide 11 L BUN 21 H Creatinine 1.7 H Glucose 219 H POC Glucose 206 H Lactic Acid Calcium 8.2 L Phosphorus Iron TIBC Ferritin Total Bilirubin Direct Bilirubin AST ALT Total Protein Albumin Lipase Vitamin B12 Urine pH Urine WBC (Auto) Plasma/Serum Alcohol Miscellaneous Test Crossmatch 03/09/19 03/09/19 03/09/19 00:47 01:45 02:02 WBC RBC 1.72 L Hgb 6.3 L Hct 20.0 L D MCV 117 H MCH 37 H MCHC 31 L RDW 20.9 H Plt Count 62 L Lymph # Seg Neutrophils % Seg Neuts % (Manual) 93.0 H Lymphocytes % (Manual) 6.0 L Monocytes % (Manual) Eosinophils % (Manual) Basophils % (Manual) Nucleated RBC % 1.0 H Seg Neutrophils # Man 9.6 H Lymphocytes # (Manual) 0.6 L Monocytes # (Manual) PT INR APTT Fibrinogen D-Dimer POC ABG pH ABG pH POC ABG pCO2 31.8 L POC ABG pO2 142 H ABG pO2 ABG Hemoglobin Oxyhemoglobin Sodium Potassium Chloride Carbon Dioxide BUN Creatinine Glucose POC Glucose 182 H Lactic Acid Calcium Phosphorus Iron TIBC Ferritin Total Bilirubin Direct Bilirubin AST ALT Total Protein Albumin Lipase Vitamin B12 Urine pH Urine WBC (Auto) Plasma/Serum Alcohol Miscellaneous Test Crossmatch 03/09/19 03/09/19 03/09/19 02:10 02:30 03:00 WBC RBC Hgb Hct MCV MCH MCHC RDW Plt Count Lymph # Seg Neutrophils % Seg Neuts % (Manual) Lymphocytes % (Manual) Monocytes % (Manual) Eosinophils % (Manual) Basophils % (Manual) Nucleated RBC % Seg Neutrophils # Man Lymphocytes # (Manual) Monocytes # (Manual) PT INR APTT Fibrinogen D-Dimer POC ABG pH ABG pH POC ABG pCO2 POC ABG pO2 ABG pO2 ABG Hemoglobin Oxyhemoglobin Sodium 150 H D Potassium Chloride Carbon Dioxide BUN Creatinine Glucose 177 H POC Glucose 178 H Lactic Acid Calcium 10.5 H D Phosphorus Iron 208 H TIBC 185 L Ferritin Total Bilirubin Direct Bilirubin AST ALT Total Protein Albumin Lipase Vitamin B12 Urine pH Urine WBC (Auto) Plasma/Serum Alcohol Miscellaneous Test Crossmatch 03/09/19 03/09/19 03/09/19 04:16 05:46 07:47 WBC RBC 1.06 L Hgb 3.9 L* Hct 11.7 L* D MCV 111 H MCH 37 H MCHC RDW 20.0 H Plt Count 52 L Lymph # Seg Neutrophils % 79.1 H Seg Neuts % (Manual) Lymphocytes % (Manual) Monocytes % (Manual) Eosinophils % (Manual) Basophils % (Manual) Nucleated RBC % Seg Neutrophils # Man Lymphocytes # (Manual) Monocytes # (Manual) PT INR APTT Fibrinogen D-Dimer POC ABG pH ABG pH POC ABG pCO2 POC ABG pO2 ABG pO2 ABG Hemoglobin Oxyhemoglobin Sodium Potassium Chloride Carbon Dioxide BUN Creatinine Glucose POC Glucose 201 H 176 H Lactic Acid Calcium Phosphorus Iron TIBC Ferritin Total Bilirubin Direct Bilirubin AST ALT Total Protein Albumin Lipase Vitamin B12 Urine pH Urine WBC (Auto) Plasma/Serum Alcohol Miscellaneous Test Crossmatch 03/09/19 03/09/19 03/09/19 07:48 07:48 13:50 WBC RBC 2.69 L Hgb 8.9 L D Hct 25.8 L D MCV 96 H MCH 33 H MCHC 35 H RDW 17.1 H Plt Count 49 L Lymph # Seg Neutrophils % 79.1 H Seg Neuts % (Manual) Lymphocytes % (Manual) Monocytes % (Manual) Eosinophils % (Manual) Basophils % (Manual) Nucleated RBC % Seg Neutrophils # Man Lymphocytes # (Manual) Monocytes # (Manual) PT INR APTT Fibrinogen D-Dimer POC ABG pH ABG pH POC ABG pCO2 POC ABG pO2 ABG pO2 ABG Hemoglobin Oxyhemoglobin Sodium 154 H Potassium Chloride 111.2 H Carbon Dioxide 18 L BUN 22 H Creatinine 2.1 H Glucose 131 H POC Glucose Lactic Acid 19.10 H* Calcium Phosphorus Iron TIBC Ferritin Total Bilirubin Direct Bilirubin AST ALT Total Protein Albumin Lipase Vitamin B12 Urine pH Urine WBC (Auto) Plasma/Serum Alcohol Miscellaneous Test Crossmatch 03/09/19 03/09/19 03/09/19 13:50 14:20 16:08 WBC RBC Hgb Hct MCV MCH MCHC RDW Plt Count Lymph # Seg Neutrophils % Seg Neuts % (Manual) Lymphocytes % (Manual) Monocytes % (Manual) Eosinophils % (Manual) Basophils % (Manual) Nucleated RBC % Seg Neutrophils # Man Lymphocytes # (Manual) Monocytes # (Manual) PT 28.2 H INR 2.70 H APTT 41.8 H Fibrinogen 81 L* D-Dimer 1494.02 H POC ABG pH ABG pH POC ABG pCO2 POC ABG pO2 ABG pO2 ABG Hemoglobin Oxyhemoglobin Sodium Potassium Chloride Carbon Dioxide BUN Creatinine Glucose POC Glucose 188 H 235 H Lactic Acid Calcium Phosphorus Iron TIBC Ferritin Total Bilirubin Direct Bilirubin AST ALT Total Protein Albumin Lipase Vitamin B12 Urine pH Urine WBC (Auto) Plasma/Serum Alcohol Miscellaneous Test Crossmatch 03/09/19 03/09/19 03/09/19 17:55 23:26 Unknown WBC RBC Hgb Hct MCV MCH MCHC RDW Plt Count Lymph # Seg Neutrophils % Seg Neuts % (Manual) Lymphocytes % (Manual) Monocytes % (Manual) Eosinophils % (Manual) Basophils % (Manual) Nucleated RBC % Seg Neutrophils # Man Lymphocytes # (Manual) Monocytes # (Manual) PT INR APTT Fibrinogen D-Dimer POC ABG pH ABG pH POC ABG pCO2 POC ABG pO2 ABG pO2 ABG Hemoglobin Oxyhemoglobin Sodium Potassium Chloride Carbon Dioxide BUN Creatinine Glucose POC Glucose 233 H 236 H Lactic Acid Calcium Phosphorus Iron TIBC Ferritin Total Bilirubin Direct Bilirubin AST ALT Total Protein Albumin Lipase 385 H Vitamin B12 Urine pH Urine WBC (Auto) Plasma/Serum Alcohol Miscellaneous Test Crossmatch 03/10/19 03/10/19 03/10/19 00:04 03:36 03:36 WBC RBC 2.11 L Hgb 7.8 L 7.1 L Hct 22.0 L 19.7 L* MCV MCH 34 H MCHC 36 H RDW 17.9 H Plt Count 45 L Lymph # Seg Neutrophils % 73.6 H Seg Neuts % (Manual) 90.0 H Lymphocytes % (Manual) 3.0 L Monocytes % (Manual) Eosinophils % (Manual) Basophils % (Manual) Nucleated RBC % 3.0 H Seg Neutrophils # Man Lymphocytes # (Manual) 0.2 L Monocytes # (Manual) PT INR APTT Fibrinogen D-Dimer POC ABG pH ABG pH POC ABG pCO2 POC ABG pO2 ABG pO2 ABG Hemoglobin Oxyhemoglobin Sodium 150 H Potassium 3.3 L D Chloride 113.2 H Carbon Dioxide BUN 30 H Creatinine 3.4 H D Glucose 196 H POC Glucose Lactic Acid Calcium 8.2 L Phosphorus Iron TIBC Ferritin Total Bilirubin Direct Bilirubin AST ALT Total Protein Albumin Lipase Vitamin B12 Urine pH Urine WBC (Auto) Plasma/Serum Alcohol Miscellaneous Test Crossmatch 03/10/19 03/10/19 03/10/19 03:36 03:53 03:56 WBC RBC Hgb Hct MCV MCH MCHC RDW Plt Count Lymph # Seg Neutrophils % Seg Neuts % (Manual) Lymphocytes % (Manual) Monocytes % (Manual) Eosinophils % (Manual) Basophils % (Manual) Nucleated RBC % Seg Neutrophils # Man Lymphocytes # (Manual) Monocytes # (Manual) PT INR APTT Fibrinogen D-Dimer POC ABG pH ABG pH POC ABG pCO2 POC ABG pO2 ABG pO2 94.7 H ABG Hemoglobin 6.5 L Oxyhemoglobin Sodium Potassium Chloride Carbon Dioxide BUN Creatinine Glucose POC Glucose 212 H Lactic Acid Calcium Phosphorus Iron TIBC Ferritin Total Bilirubin 4.90 H Direct Bilirubin 3.9 H AST 6235 H ALT 924 H Total Protein 4.2 L D Albumin 2.5 L Lipase Vitamin B12 Urine pH Urine WBC (Auto) Plasma/Serum Alcohol Miscellaneous Test Crossmatch 03/10/19 03/10/1903/10/19 05:58 08:12 09:26 WBC RBC Hgb Hct MCV MCH MCHC RDW Plt Count Lymph # Seg Neutrophils % Seg Neuts % (Manual) Lymphocytes % (Manual) Monocytes % (Manual) Eosinophils % (Manual) Basophils % (Manual) Nucleated RBC % Seg Neutrophils # Man Lymphocytes # (Manual) Monocytes # (Manual) PT 29.3 H INR 2.83 H APTT Fibrinogen D-Dimer POC ABG pH ABG pH POC ABG pCO2 POC ABG pO2 ABG pO2 ABG Hemoglobin Oxyhemoglobin Sodium Potassium Chloride Carbon Dioxide BUN Creatinine Glucose POC Glucose 171 H 197 H Lactic Acid Calcium Phosphorus Iron TIBC Ferritin Total Bilirubin Direct Bilirubin AST ALT Total Protein Albumin Lipase Vitamin B12 Urine pH Urine WBC (Auto) Plasma/Serum Alcohol Miscellaneous Test Crossmatch 03/10/19 03/10/19 03/10/19 11:40 14:04 16:18 WBC RBC Hgb 6.7 L Hct 18.8 L* MCV MCH MCHC RDW Plt Count Lymph # Seg Neutrophils % Seg Neuts % (Manual) Lymphocytes % (Manual) Monocytes % (Manual) Eosinophils % (Manual) Basophils % (Manual) Nucleated RBC % Seg Neutrophils # Man Lymphocytes # (Manual) Monocytes # (Manual) PT INR APTT Fibrinogen D-Dimer POC ABG pH ABG pH POC ABG pCO2 POC ABG pO2 ABG pO2 ABG Hemoglobin Oxyhemoglobin Sodium Potassium Chloride Carbon Dioxide BUN Creatinine Glucose POC Glucose 178 H 192 H Lactic Acid Calcium Phosphorus Iron TIBC Ferritin Total Bilirubin Direct Bilirubin AST ALT Total Protein Albumin Lipase Vitamin B12 Urine pH Urine WBC (Auto) Plasma/Serum Alcohol Miscellaneous Test Crossmatch 03/10/19 03/10/19 03/11/19 21:42 22:00 00:05 WBC RBC Hgb 7.4 L Hct 21.1 L MCV MCH MCHC RDW Plt Count Lymph # Seg Neutrophils % Seg Neuts % (Manual) Lymphocytes % (Manual) Monocytes % (Manual) Eosinophils % (Manual) Basophils % (Manual) Nucleated RBC % Seg Neutrophils # Man Lymphocytes # (Manual) Monocytes # (Manual) PT INR APTT Fibrinogen D-Dimer POC ABG pH ABG pH POC ABG pCO2 POC ABG pO2 ABG pO2 ABG Hemoglobin Oxyhemoglobin Sodium Potassium Chloride Carbon Dioxide BUN Creatinine Glucose POC Glucose 174 H 136 H Lactic Acid Calcium Phosphorus Iron TIBC Ferritin Total Bilirubin Direct Bilirubin AST ALT Total Protein Albumin Lipase Vitamin B12 Urine pH Urine WBC (Auto) Plasma/Serum Alcohol Miscellaneous Test Crossmatch 03/11/19 03/11/19 03/11/19 04:04 04:15 04:15 WBC RBC 2.28 L Hgb 7.4 L Hct 20.8 L MCV MCH 33 H MCHC 36 H RDW 18.4 H Plt Count 38 L Lymph # 1.1 L Seg Neutrophils % 72.7 H Seg Neuts % (Manual) Lymphocytes % (Manual) Monocytes % (Manual) Eosinophils % (Manual) Basophils % (Manual) Nucleated RBC % Seg Neutrophils # Man Lymphocytes # (Manual) Monocytes # (Manual) PT INR APTT Fibrinogen D-Dimer POC ABG pH ABG pH POC ABG pCO2 POC ABG pO2 ABG pO2 ABG Hemoglobin Oxyhemoglobin Sodium 147 H Potassium 3.2 L Chloride 109.2 H Carbon Dioxide BUN 34 H Creatinine 5.0 H Glucose 132 H POC Glucose 133 H Lactic Acid Calcium 7.5 L Phosphorus Iron TIBC Ferritin Total Bilirubin 7.40 H Direct Bilirubin AST 3748 H ALT 864 H Total Protein 4.7 L Albumin 2.5 L Lipase Vitamin B12 Urine pH Urine WBC (Auto) Plasma/Serum Alcohol Miscellaneous Test Crossmatch 03/11/19 03/11/19 03/11/19 04:25 08:28 12:03 WBC RBC Hgb Hct MCV MCH MCHC RDW Plt Count Lymph # Seg Neutrophils % Seg Neuts % (Manual) Lymphocytes % (Manual) Monocytes % (Manual) Eosinophils % (Manual) Basophils % (Manual) Nucleated RBC % Seg Neutrophils # Man Lymphocytes # (Manual) Monocytes # (Manual) PT INR APTT Fibrinogen D-Dimer POC ABG pH ABG pH 7.467 H POC ABG pCO2 POC ABG pO2 ABG pO2 69.6 L ABG Hemoglobin 7.4 L Oxyhemoglobin 94.3 L Sodium Potassium Chloride Carbon Dioxide BUN Creatinine Glucose POC Glucose 128 H 122 H Lactic Acid Calcium Phosphorus Iron TIBC Ferritin Total Bilirubin Direct Bilirubin AST ALT Total Protein Albumin Lipase Vitamin B12 Urine pH Urine WBC (Auto) Plasma/Serum Alcohol Miscellaneous Test Crossmatch 03/11/19 03/11/19 03/11/19 17:01 20:09 23:58 WBC RBC Hgb Hct MCV MCH MCHC RDW Plt Count Lymph # Seg Neutrophils % Seg Neuts % (Manual) Lymphocytes % (Manual) Monocytes % (Manual) Eosinophils % (Manual) Basophils % (Manual) Nucleated RBC % Seg Neutrophils # Man Lymphocytes # (Manual) Monocytes # (Manual) PT INR APTT Fibrinogen D-Dimer POC ABG pH ABG pH POC ABG pCO2 POC ABG pO2 ABG pO2 ABG Hemoglobin Oxyhemoglobin Sodium Potassium Chloride Carbon Dioxide BUN Creatinine Glucose POC Glucose 135 H 155 H 119 H Lactic Acid Calcium Phosphorus Iron TIBC Ferritin Total Bilirubin Direct Bilirubin AST ALT Total Protein Albumin Lipase Vitamin B12 Urine pH Urine WBC (Auto) Plasma/Serum Alcohol Miscellaneous Test Crossmatch 03/12/19 03/12/19 03/12/19 03:00 04:10 05:24 WBC RBC Hgb Hct MCV MCH MCHC RDW Plt Count Lymph # Seg Neutrophils % Seg Neuts % (Manual) Lymphocytes % (Manual) Monocytes % (Manual) Eosinophils % (Manual) Basophils % (Manual) Nucleated RBC % Seg Neutrophils # Man Lymphocytes # (Manual) Monocytes # (Manual) PT INR APTT Fibrinogen D-Dimer POC ABG pH ABG pH 7.467 H POC ABG pCO2 POC ABG pO2 ABG pO2 77.8 L ABG Hemoglobin 7.3 L Oxyhemoglobin 94.2 L Sodium Potassium Chloride Carbon Dioxide BUN Creatinine Glucose POC Glucose 137 H 137 H Lactic Acid Calcium Phosphorus Iron TIBC Ferritin Total Bilirubin Direct Bilirubin AST ALT Total Protein Albumin Lipase Vitamin B12 Urine pH Urine WBC (Auto) Plasma/Serum Alcohol Miscellaneous Test Crossmatch 03/12/19 03/12/19 03/12/19 07:40 07:40 08:40 WBC RBC 2.24 L Hgb 7.4 L Hct 20.9 L MCV MCH 33 H MCHC 35 H RDW 19.0 H Plt Count 45 L Lymph # Seg Neutrophils % Seg Neuts % (Manual) 76.0 H Lymphocytes % (Manual) Monocytes % (Manual) Eosinophils % (Manual) Basophils % (Manual) Nucleated RBC % 11.0 H Seg Neutrophils # Man Lymphocytes # (Manual) 1.1 L Monocytes # (Manual) PT 22.4 H INR 2.02 H APTT 45.4 H Fibrinogen D-Dimer POC ABG pH ABG pH POC ABG pCO2 POC ABG pO2 ABG pO2 ABG Hemoglobin Oxyhemoglobin Sodium Potassium Chloride Carbon Dioxide BUN Creatinine Glucose POC Glucose 132 H Lactic Acid Calcium Phosphorus Iron TIBC Ferritin Total Bilirubin Direct Bilirubin AST ALT Total Protein Albumin Lipase Vitamin B12 Urine pH Urine WBC (Auto) Plasma/Serum Alcohol Miscellaneous Test Crossmatch 03/12/19 03/12/19 03/12/19 12:00 14:54 16:51 WBC RBC Hgb Hct MCV MCH MCHC RDW Plt Count Lymph # Seg Neutrophils % Seg Neuts % (Manual) Lymphocytes % (Manual) Monocytes % (Manual) Eosinophils % (Manual) Basophils % (Manual) Nucleated RBC % Seg Neutrophils # Man Lymphocytes # (Manual) Monocytes # (Manual) PT INR APTT Fibrinogen D-Dimer POC ABG pH ABG pH POC ABG pCO2 POC ABG pO2 ABG pO2 ABG Hemoglobin Oxyhemoglobin Sodium Potassium Chloride Carbon Dioxide BUN Creatinine Glucose POC Glucose 160 H 122 H Lactic Acid Calcium Phosphorus Iron TIBC Ferritin Total Bilirubin Direct Bilirubin AST ALT Total Protein Albumin Lipase Vitamin B12 Urine pH Urine WBC (Auto) Plasma/Serum Alcohol Miscellaneous Test Flexitest 1 H Crossmatch 03/12/19 03/12/19 03/13/19 Unknown Unknown 03:45 WBC RBC Hgb Hct MCV MCH MCHC RDW Plt Count Lymph # Seg Neutrophils % Seg Neuts % (Manual) Lymphocytes % (Manual) Monocytes % (Manual) Eosinophils % (Manual) Basophils % (Manual) Nucleated RBC % Seg Neutrophils # Man Lymphocytes # (Manual) Monocytes # (Manual) PT INR APTT Fibrinogen D-Dimer POC ABG pH ABG pH POC ABG pCO2 POC ABG pO2 ABG pO2 62.5 L ABG Hemoglobin 7.6 L Oxyhemoglobin 92.3 L Sodium Potassium Chloride Carbon Dioxide BUN 26 H Creatinine 4.1 H Glucose 128 H POC Glucose Lactic Acid Calcium 7.0 L Phosphorus Iron TIBC Ferritin Total Bilirubin 8.90 H Direct Bilirubin 7.4 H AST 2116 H ALT 767 H Total Protein 5.1 L Albumin 2.3 L Lipase Vitamin B12 Urine pH Urine WBC (Auto) Plasma/Serum Alcohol Miscellaneous Test Crossmatch 03/13/19 03/13/19 03/13/19 04:11 04:11 08:04 WBC 4.2 L RBC 2.09 L Hgb 6.8 L 7.0 L Hct 19.6 L* 20.0 L MCV MCH 33 H MCHC 35 H RDW 20.2 H Plt Count 44 L Lymph # Seg Neutrophils % Seg Neuts % (Manual) Lymphocytes % (Manual) 7.0 L Monocytes % (Manual) 32.0 H Eosinophils % (Manual) 5.0 H Basophils % (Manual) 2.0 H Nucleated RBC % 12.0 H Seg Neutrophils # Man 0.0 L Lymphocytes # (Manual) 0.0 L Monocytes # (Manual) PT INR APTT Fibrinogen D-Dimer POC ABG pH ABG pH POC ABG pCO2 POC ABG pO2 ABG pO2 ABG Hemoglobin Oxyhemoglobin Sodium Potassium 3.0 L Chloride Carbon Dioxide BUN 27 H Creatinine 3.7 H Glucose POC Glucose Lactic Acid Calcium 6.3 L Phosphorus Iron TIBC Ferritin Total Bilirubin Direct Bilirubin AST ALT Total Protein Albumin Lipase Vitamin B12 Urine pH Urine WBC (Auto) Plasma/Serum Alcohol Miscellaneous Test Crossmatch 03/13/19 03/13/19 03/13/19 12:04 17:05 21:23 WBC RBC Hgb Hct MCV MCH MCHC RDW Plt Count Lymph # Seg Neutrophils % Seg Neuts % (Manual) Lymphocytes % (Manual) Monocytes % (Manual) Eosinophils % (Manual) Basophils % (Manual) Nucleated RBC % Seg Neutrophils # Man Lymphocytes # (Manual) Monocytes # (Manual) PT INR APTT Fibrinogen D-Dimer POC ABG pH ABG pH POC ABG pCO2 POC ABG pO2 ABG pO2 ABG Hemoglobin Oxyhemoglobin Sodium Potassium Chloride Carbon Dioxide BUN Creatinine Glucose POC Glucose 114 H 111 H 145 H Lactic Acid Calcium Phosphorus Iron TIBC Ferritin Total Bilirubin Direct Bilirubin AST ALT Total Protein Albumin Lipase Vitamin B12 Urine pH Urine WBC (Auto) Plasma/Serum Alcohol Miscellaneous Test Crossmatch 03/14/19 03/14/19 03/14/19 00:00 04:10 05:25 WBC 4.2 L RBC 2.20 L Hgb 7.3 L Hct 21.0 L MCV 96 H MCH 33 H MCHC 35 H RDW 20.1 H Plt Count 65 L Lymph # Seg Neutrophils % Seg Neuts % (Manual) Lymphocytes % (Manual) 6.0 L Monocytes % (Manual) 18 H Eosinophils % (Manual) Basophils % (Manual) Nucleated RBC % Seg Neutrophils # Man Lymphocytes # (Manual) 0.3 L Monocytes # (Manual) PT INR APTT Fibrinogen D-Dimer POC ABG pH ABG pH POC ABG pCO2 POC ABG pO2 ABG pO2 ABG Hemoglobin Oxyhemoglobin Sodium Potassium Chloride Carbon Dioxide BUN Creatinine Glucose POC Glucose 173 H 185 H Lactic Acid Calcium Phosphorus Iron TIBC Ferritin Total Bilirubin Direct Bilirubin AST ALT Total Protein Albumin Lipase Vitamin B12 Urine pH Urine WBC (Auto) Plasma/Serum Alcohol Miscellaneous Test Crossmatch 03/14/19 03/14/19 03/14/19 05:25 07:34 12:05 WBC RBC Hgb Hct MCV MCH MCHC RDW Plt Count Lymph # Seg Neutrophils % Seg Neuts % (Manual) Lymphocytes % (Manual) Monocytes % (Manual) Eosinophils % (Manual) Basophils % (Manual) Nucleated RBC % Seg Neutrophils # Man Lymphocytes # (Manual) Monocytes # (Manual) PT INR APTT Fibrinogen D-Dimer POC ABG pH ABG pH POC ABG pCO2 POC ABG pO2 ABG pO2 ABG Hemoglobin Oxyhemoglobin Sodium Potassium Chloride 108.2 H Carbon Dioxide BUN 28 H Creatinine 2.4 H Glucose 179 H POC Glucose 190 H 177 H Lactic Acid Calcium 6.5 L Phosphorus Iron TIBC Ferritin Total Bilirubin 9.00 H Direct Bilirubin AST 321 H ALT 341 H Total Protein 5.2 L Albumin 2.2 L Lipase Vitamin B12 Urine pH Urine WBC (Auto) Plasma/Serum Alcohol Miscellaneous Test Crossmatch 03/14/19 03/14/19 03/14/19 16:02 20:13 23:28 WBC RBC Hgb Hct MCV MCH MCHC RDW Plt Count Lymph # Seg Neutrophils % Seg Neuts % (Manual) Lymphocytes % (Manual) Monocytes % (Manual) Eosinophils % (Manual) Basophils % (Manual) Nucleated RBC % Seg Neutrophils # Man Lymphocytes # (Manual) Monocytes # (Manual) PT INR APTT Fibrinogen D-Dimer POC ABG pH ABG pH POC ABG pCO2 POC ABG pO2 ABG pO2 ABG Hemoglobin Oxyhemoglobin Sodium Potassium Chloride Carbon Dioxide BUN Creatinine Glucose POC Glucose 140 H 145 H 140 H Lactic Acid Calcium Phosphorus Iron TIBC Ferritin Total Bilirubin Direct Bilirubin AST ALT Total Protein Albumin Lipase Vitamin B12 Urine pH Urine WBC (Auto) Plasma/Serum Alcohol Miscellaneous Test Crossmatch 03/14/19 03/15/19 03/15/19 Unknown 01:00 04:08 WBC RBC Hgb Hct MCV MCH MCHC RDW Plt Count Lymph # Seg Neutrophils % Seg Neuts % (Manual) Lymphocytes % (Manual) Monocytes % (Manual) Eosinophils % (Manual) Basophils % (Manual) Nucleated RBC % Seg Neutrophils # Man Lymphocytes # (Manual) Monocytes # (Manual) PT 18.5 H INR 1.58 H APTT Fibrinogen D-Dimer POC ABG pH ABG pH POC ABG pCO2 POC ABG pO2 ABG pO2 102.3 H ABG Hemoglobin 9.6 L Oxyhemoglobin 94.9 L Sodium Potassium Chloride Carbon Dioxide BUN Creatinine Glucose POC Glucose 136 H Lactic Acid Calcium Phosphorus Iron TIBC Ferritin Total Bilirubin Direct Bilirubin AST ALT Total Protein Albumin Lipase Vitamin B12 Urine pH Urine WBC (Auto) Plasma/Serum Alcohol Miscellaneous Test Crossmatch 03/15/19 03/15/19 03/15/19 04:45 04:50 04:50 WBC RBC 2.30 L Hgb 7.6 L Hct 22.2 L MCV 97 H MCH 33 H MCHC RDW 22.5 H Plt Count 109 L Lymph # Seg Neutrophils % Seg Neuts % (Manual) 87.0 H Lymphocytes % (Manual) 6.0 L Monocytes % (Manual) Eosinophils % (Manual) Basophils % (Manual) Nucleated RBC % 1.0 H Seg Neutrophils # Man 8.4 H Lymphocytes # (Manual) 0.6 L Monocytes # (Manual) PT INR APTT Fibrinogen D-Dimer POC ABG pH 7.574 H ABG pH POC ABG pCO2 POC ABG pO2 123 H ABG pO2 ABG Hemoglobin Oxyhemoglobin Sodium Potassium Chloride Carbon Dioxide BUN Creatinine Glucose POC Glucose Lactic Acid Calcium Phosphorus Iron TIBC Ferritin 4122.0 H Total Bilirubin Direct Bilirubin AST ALT Total Protein Albumin Lipase Vitamin B12 Urine pH Urine WBC (Auto) Plasma/Serum Alcohol Miscellaneous Test Crossmatch 03/15/19 03/15/19 03/15/19 04:50 04:50 08:22 WBC RBC Hgb Hct MCV MCH MCHC RDW Plt Count Lymph # Seg Neutrophils % Seg Neuts % (Manual) Lymphocytes % (Manual) Monocytes % (Manual) Eosinophils % (Manual) Basophils % (Manual) Nucleated RBC % Seg Neutrophils # Man Lymphocytes # (Manual) Monocytes # (Manual) PT INR APTT Fibrinogen D-Dimer POC ABG pH ABG pH POC ABG pCO2 POC ABG pO2 ABG pO2 ABG Hemoglobin Oxyhemoglobin Sodium 146 H Potassium 3.5 L Chloride 109.7 H Carbon Dioxide BUN 29 H Creatinine 1.8 H Glucose 134 H POC Glucose 132 H Lactic Acid Calcium 6.7 L Phosphorus Iron TIBC Ferritin Total Bilirubin 8.00 H Direct Bilirubin AST 204 H ALT 272 H Total Protein 5.4 L Albumin 2.6 L Lipase Vitamin B12 > 2000 H Urine pH Urine WBC (Auto) Plasma/Serum Alcohol Miscellaneous Test Crossmatch 03/15/19 03/15/19 03/15/19 11:41 12:22 19:55 WBC RBC Hgb Hct MCV MCH MCHC RDW Plt Count Lymph # Seg Neutrophils % Seg Neuts % (Manual) Lymphocytes % (Manual) Monocytes % (Manual) Eosinophils % (Manual) Basophils % (Manual) Nucleated RBC % Seg Neutrophils # Man Lymphocytes # (Manual) Monocytes # (Manual) PT INR APTT Fibrinogen D-Dimer POC ABG pH ABG pH POC ABG pCO2 POC ABG pO2 ABG pO2 ABG Hemoglobin Oxyhemoglobin Sodium Potassium Chloride Carbon Dioxide BUN Creatinine Glucose POC Glucose 122 H 115 H 107 H Lactic Acid Calcium Phosphorus Iron TIBC Ferritin Total Bilirubin Direct Bilirubin AST ALT Total Protein Albumin Lipase Vitamin B12 Urine pH Urine WBC (Auto) Plasma/Serum Alcohol Miscellaneous Test Crossmatch 03/15/19 03/16/19 03/16/19 23:13 03:00 06:00 WBC 16.1 H RBC 2.55 L Hgb 8.4 L Hct 25.2 L MCV 99 H MCH 33 H MCHC RDW 23.7 H Plt Count 123 L Lymph # Seg Neutrophils % Seg Neuts % (Manual) 92.0 H Lymphocytes % (Manual) 5.0 L Monocytes % (Manual) Eosinophils % (Manual) Basophils % (Manual) Nucleated RBC % 4.0 H Seg Neutrophils # Man 14.8 H Lymphocytes # (Manual) 0.8 L Monocytes # (Manual) PT INR APTT Fibrinogen D-Dimer POC ABG pH ABG pH POC ABG pCO2 POC ABG pO2 ABG pO2 ABG Hemoglobin Oxyhemoglobin Sodium Potassium Chloride Carbon Dioxide BUN Creatinine Glucose POC Glucose 133 H 135 H Lactic Acid Calcium Phosphorus Iron TIBC Ferritin Total Bilirubin Direct Bilirubin AST ALT Total Protein Albumin Lipase Vitamin B12 Urine pH Urine WBC (Auto) Plasma/Serum Alcohol Miscellaneous Test Crossmatch 03/16/19 03/16/19 03/16/19 06:00 06:00 10:08 WBC RBC Hgb Hct MCV MCH MCHC RDW Plt Count Lymph # Seg Neutrophils % Seg Neuts % (Manual) Lymphocytes % (Manual) Monocytes % (Manual) Eosinophils % (Manual) Basophils % (Manual) Nucleated RBC % Seg Neutrophils # Man Lymphocytes # (Manual) Monocytes # (Manual) PT INR APTT Fibrinogen D-Dimer POC ABG pH ABG pH 7.469 H POC ABG pCO2 POC ABG pO2 ABG pO2 70.7 L 75.8 L ABG Hemoglobin 7.9 L 7.9 L Oxyhemoglobin 93.2 L 94.5 L Sodium 147 H Potassium 3.4 L Chloride 108.7 H Carbon Dioxide BUN 29 H Creatinine Glucose 114 H POC Glucose Lactic Acid Calcium 7.2 L Phosphorus Iron TIBC Ferritin Total Bilirubin 9.90 H Direct Bilirubin AST 271 H ALT 268 H Total Protein 6.1 L Albumin 2.8 L Lipase Vitamin B12 Urine pH Urine WBC (Auto) Plasma/Serum Alcohol Miscellaneous Test Crossmatch 03/16/19 03/16/19 03/17/19 19:58 23:55 05:09 WBC RBC Hgb Hct MCV MCH MCHC RDW Plt Count Lymph # Seg Neutrophils % Seg Neuts % (Manual) Lymphocytes % (Manual) Monocytes % (Manual) Eosinophils % (Manual) Basophils % (Manual) Nucleated RBC % Seg Neutrophils # Man Lymphocytes # (Manual) Monocytes # (Manual) PT INR APTT Fibrinogen D-Dimer POC ABG pH ABG pH POC ABG pCO2 POC ABG pO2 ABG pO2 ABG Hemoglobin Oxyhemoglobin Sodium Potassium Chloride Carbon Dioxide BUN Creatinine Glucose POC Glucose 196 H 210 H 150 H Lactic Acid Calcium Phosphorus Iron TIBC Ferritin Total Bilirubin Direct Bilirubin AST ALT Total Protein Albumin Lipase Vitamin B12 Urine pH Urine WBC (Auto) Plasma/Serum Alcohol Miscellaneous Test Crossmatch 03/17/19 03/17/19 03/17/19 06:30 06:30 08:45 WBC 15.3 H RBC 2.36 L Hgb 7.7 L Hct 23.0 L MCV 98 H MCH 33 H MCHC RDW 23.1 H Plt Count 116 L Lymph # Seg Neutrophils % Seg Neuts % (Manual) Lymphocytes % (Manual) Monocytes % (Manual) Eosinophils % (Manual) Basophils % (Manual) Nucleated RBC % Seg Neutrophils # Man Lymphocytes # (Manual) Monocytes # (Manual) PT INR APTT Fibrinogen D-Dimer POC ABG pH ABG pH POC ABG pCO2 POC ABG pO2 ABG pO2 ABG Hemoglobin Oxyhemoglobin Sodium Potassium 3.0 L Chloride Carbon Dioxide BUN Creatinine Glucose 128 H POC Glucose 152 H Lactic Acid Calcium 7.3 L Phosphorus Iron TIBC Ferritin Total Bilirubin 9.20 H Direct Bilirubin AST 214 H ALT 225 H Total Protein 5.8 L Albumin 2.4 L Lipase Vitamin B12 Urine pH Urine WBC (Auto) Plasma/Serum Alcohol Miscellaneous Test Crossmatch 03/17/19 03/17/19 03/17/19 11:47 12:30 16:50 WBC RBC Hgb Hct MCV MCH MCHC RDW Plt Count Lymph # Seg Neutrophils % Seg Neuts % (Manual) Lymphocytes % (Manual) Monocytes % (Manual) Eosinophils % (Manual) Basophils % (Manual) Nucleated RBC % Seg Neutrophils # Man Lymphocytes # (Manual) Monocytes # (Manual) PT INR APTT Fibrinogen D-Dimer POC ABG pH ABG pH POC ABG pCO2 POC ABG pO2 ABG pO2 ABG Hemoglobin Oxyhemoglobin Sodium Potassium Chloride Carbon Dioxide BUN Creatinine Glucose POC Glucose 147 H 151 H Lactic Acid Calcium Phosphorus Iron TIBC Ferritin Total Bilirubin Direct Bilirubin AST ALT Total Protein Albumin Lipase Vitamin B12 Urine pH 8.0 H Urine WBC (Auto) Plasma/Serum Alcohol Miscellaneous Test Crossmatch 03/17/19 03/18/19 03/18/19 20:17 04:06 04:06 WBC 16.3 H RBC 2.43 L Hgb 7.9 L Hct 24.0 L MCV 99 H MCH 33 H MCHC RDW 23.1 H Plt Count 127 L Lymph # Seg Neutrophils % Seg Neuts % (Manual) Lymphocytes % (Manual) Monocytes % (Manual) Eosinophils % (Manual) Basophils % (Manual) Nucleated RBC % Seg Neutrophils # Man Lymphocytes # (Manual) Monocytes # (Manual) PT INR APTT Fibrinogen D-Dimer POC ABG pH ABG pH POC ABG pCO2 POC ABG pO2 ABG pO2 ABG Hemoglobin Oxyhemoglobin Sodium Potassium 3.4 L Chloride Carbon Dioxide BUN Creatinine 0.6 L Glucose 153 H POC Glucose 223 H Lactic Acid Calcium 7.8 L Phosphorus Iron TIBC Ferritin Total Bilirubin 10.00 H Direct Bilirubin AST 177 H ALT 208 H Total Protein Albumin 2.5 L Lipase Vitamin B12 Urine pH Urine WBC (Auto) Plasma/Serum Alcohol Miscellaneous Test Crossmatch 03/18/19 03/18/19 03/19/19 07:45 11:38 07:32 WBC 16.0 H RBC 2.54 L Hgb 8.3 L Hct 24.9 L MCV 98 H MCH 33 H MCHC RDW 21.6 H Plt Count Lymph # Seg Neutrophils % Seg Neuts % (Manual) Lymphocytes % (Manual) Monocytes % (Manual) Eosinophils % (Manual) Basophils % (Manual) Nucleated RBC % Seg Neutrophils # Man Lymphocytes # (Manual) Monocytes # (Manual) PT INR APTT Fibrinogen D-Dimer POC ABG pH ABG pH POC ABG pCO2 POC ABG pO2 ABG pO2 ABG Hemoglobin Oxyhemoglobin Sodium Potassium Chloride Carbon Dioxide BUN Creatinine Glucose POC Glucose 138 H 157 H Lactic Acid Calcium Phosphorus Iron TIBC Ferritin Total Bilirubin Direct Bilirubin AST ALT Total Protein Albumin Lipase Vitamin B12 Urine pH Urine WBC (Auto) Plasma/Serum Alcohol Miscellaneous Test Crossmatch 03/19/19 07:32 WBC RBC Hgb Hct MCV MCH MCHC RDW Plt Count Lymph # Seg Neutrophils % Seg Neuts % (Manual) Lymphocytes % (Manual) Monocytes % (Manual) Eosinophils % (Manual) Basophils % (Manual) Nucleated RBC % Seg Neutrophils # Man Lymphocytes # (Manual) Monocytes # (Manual) PT INR APTT Fibrinogen D-Dimer POC ABG pH ABG pH POC ABG pCO2 POC ABG pO2 ABG pO2 ABG Hemoglobin Oxyhemoglobin Sodium Potassium 3.4 L Chloride Carbon Dioxide BUN Creatinine 0.6 L Glucose 109 H POC Glucose Lactic Acid Calcium 7.4 L Phosphorus Iron TIBC Ferritin Total Bilirubin 8.00 H Direct Bilirubin AST 148 H ALT 184 H Total Protein Albumin 2.7 L Lipase Vitamin B12 Urine pH Urine WBC (Auto) Plasma/Serum Alcohol Miscellaneous Test Crossmatch Allied health notes reviewed: nursing
--- NOTE | 2019-03-19 12:27 | Discharge Summary ---
Providers - Providers Date of Admission: 03/08/19 14:56 Date of discharge: 03/19/19 Attending physician: PAULO MAN 03/08/19 13:07 Consult to Physician [CONS] Urgent Comment: Consulting Provider: RAINA BAI Physician Instructions: Reason For Exam: upper GI bleed 03/08/19 22:31 Consult to Physician [CONS] Routine Comment: Consulting Provider: BELLE SALINAS Physician Instructions: Reason For Exam: cc 03/08/19 22:51 Consult to Dietitian/Nutrition [CONS] Routine Physician Instructions: Reason For Exam: Reason for Consult: Evaluate nutritional intake 03/09/19 00:57 Consult to Physician [CONS] Urgent Comment: Dr. Low spoke with Dr. Warren @ 0019 Consulting Provider: REGINALDO WARREN Physician Instructions: Reason For Exam: arf, hyperkalemia 03/09/19 16:33 Consult to Physician [CONS] Routine Comment: Consulting Provider: LATOYA SPARKS Physician Instructions: Reason For Exam: possible dic 03/10/19 16:15 Consult to Physician [CONS] Routine Comment: Consulting Provider: LISA HOOKER Physician Instructions: CONSULT FOR 03/11 Reason For Exam: VASCATH PLACEMENT 03/15/19 14:49 Consult to Dietitian/Nutrition [CONS] Stat Physician Instructions: Reason For Exam: Reason for Consult: Write/Manage TPN/PPN Primary care physician: SKIN TOGGLER Hospitalization Condition: Fair Disposition: DC-01 TO HOME OR SELFCARE Exam - Constitutional Vitals: Temp Pulse Resp BP Pulse Ox 97.8 F 72 19 135/82 96 03/19/19 10:47 03/19/19 10:47 03/19/19 10:47 03/19/19 10:47 03/19/19 10:47 Plan Activity: no restrictions Diet: other (GI soft diet) Plan of Treatment: 1.Follow up with PCP or [facility] in 1 week 2.Follow up with Dr. Mcbride GI in 2 weeks. [address] Sparks, Hematology in 1 week. 4.Follow up with PATEL Garner in 1-2 weeks 5.Follow up with Dr. Johansen in 1-2 weeks Assessment: 1.Acute GI bleed 2.Acute resp failure 3.Alcoholic hepatitis Follow up with: PRIMARY CARE, [Primary Care Provider] - 7 Days Prescriptions: RX: predniSONE [Deltasone] 10 mg PO .TAPER #42 tab RX: Pantoprazole [Protonix TAB] 40 mg PO BID #60 tablet
[2019-03-19 18:43] VITALS: BP 125/82
== END 2019-03-19 18:00 | disposition home or self-care (01) | DRG 870 ==
LOC: ED 09:16 → IMCU 14:56 → CC1 22:38 → 3A 03-17 16:10
PROVIDERS: ADMIT Internal Medicine; ATTEND Internal Medicine
PROC: 02HV33Z Insertion of Infusion Device into Superior Vena Cava, Percutaneous Approach (ICD-10-PCS; 2019-03-08)
PROC: B548ZZA Ultrasonography of Superior Vena Cava, Guidance (ICD-10-PCS; 2019-03-08)
PROC: 0BH17EZ Insertion of Endotracheal Airway into Trachea, Via Natural or Artificial Opening (ICD-10-PCS; 2019-03-08)
PROC: 05HY33Z Insertion of Infusion Device into Upper Vein, Percutaneous Approach (ICD-10-PCS; 2019-03-08)
PROC: 06L38CZ Occlusion of Esophageal Vein with Extraluminal Device, Via Natural or Artificial Opening Endoscopic (ICD-10-PCS; principal; 2019-03-09)
PROC: 0DC28ZZ Extirpation of Matter from Middle Esophagus, Via Natural or Artificial Opening Endoscopic (ICD-10-PCS; 2019-03-09)
PROC: 0DC38ZZ Extirpation of Matter from Lower Esophagus, Via Natural or Artificial Opening Endoscopic (ICD-10-PCS; 2019-03-09)
PROC: 4A033R1 Measurement of Arterial Saturation, Peripheral, Percutaneous Approach (ICD-10-PCS; 2019-03-09)
PROC: 5A1955Z Respiratory Ventilation, Greater than 96 Consecutive Hours (ICD-10-PCS; 2019-03-09)
PROC: 30233N1 Transfusion of Nonautologous Red Blood Cells into Peripheral Vein, Percutaneous Approach (ICD-10-PCS; 2019-03-09)
PROC: 30233R1 Transfusion of Nonautologous Platelets into Peripheral Vein, Percutaneous Approach (ICD-10-PCS; 2019-03-09)
PROC: 30233K1 Transfusion of Nonautologous Frozen Plasma into Peripheral Vein, Percutaneous Approach (ICD-10-PCS; 2019-03-10)
PROC: 30233M1 Transfusion of Nonautologous Plasma Cryoprecipitate into Peripheral Vein, Percutaneous Approach (ICD-10-PCS; 2019-03-10)
PROC: 06H033Z Insertion of Infusion Device into Inferior Vena Cava, Percutaneous Approach (ICD-10-PCS; 2019-03-11)
PROC: B549ZZA Ultrasonography of Inferior Vena Cava, Guidance (ICD-10-PCS; 2019-03-11)
PROC: 5A1D70Z Performance of Urinary Filtration, Intermittent, Less than 6 Hours Per Day (ICD-10-PCS; 2019-03-11)
PROC: 5A1D70Z Performance of Urinary Filtration, Intermittent, Less than 6 Hours Per Day (ICD-10-PCS; 2019-03-15)
PROC: 5A09357 Assistance with Respiratory Ventilation, Less than 24 Consecutive Hours, Continuous Positive Airway Pressure (ICD-10-PCS; 2019-03-16)
PROC: 5A09357 Assistance with Respiratory Ventilation, Less than 24 Consecutive Hours, Continuous Positive Airway Pressure (ICD-10-PCS; 2019-03-18)
DX: A41.9 Sepsis, unspecified organism (principal); R57.8 Other shock; I85.11 Secondary esophageal varices with bleeding; J96.01 Acute respiratory failure with hypoxia; D65 Disseminated intravascular coagulation [defibrination syndrome]; N17.0 Acute kidney failure with tubular necrosis; J69.0 Pneumonitis due to inhalation of food and vomit; F17.213 Nicotine dependence, cigarettes, with withdrawal; E87.0 Hyperosmolality and hypernatremia; D62 Acute posthemorrhagic anemia; E87.2 Acidosis; E87.6 Hypokalemia; D68.9 Coagulation defect, unspecified; D61.818 Other pancytopenia; E87.5 Hyperkalemia; K70.10 Alcoholic hepatitis without ascites; K70.30 Alcoholic cirrhosis of liver without ascites; F32.9 Major depressive disorder, single episode, unspecified; F10.229 Alcohol dependence with intoxication, unspecified; Y90.9 Presence of alcohol in blood, level not specified; Z71.6 Tobacco abuse counseling; Z71.41 Alcohol abuse counseling and surveillance of alcoholic
CPT/HCPCS: 36415; 36430; 36600; 71045; 71250; 72110; 72220; 74176; 74177; 76705; 80048; 80053; 80074; 80076; 80320; 81001; 82140; 82271; 82607; 82728; 82803; 82962; 83550; 83690; 83735; 84100; 84132; 85007; 85014; 85018; 85025; 85027; 85379; 85384; 85610; 85730; 86850; 86900; 86901; 86920; 87040; 87070; 87086; 87205; 93005; 93010; 94002; 94003; 94640; 94660; 94760; 96361; 96365; 96375; G0378; C9113; G0480; J0610; J0696; J1815; J2060; J2250; J2354; J2370; J2405; J2543; J2704; J2765; J2920; J3010; J3370; J3411; J3430; J3475; J3480; J7030; J7040; J7042; J7070; P9012; P9016; P9017; P9035; P9047; Q9967

== ENCOUNTER 2020-05-25 06:28 | Inpatient (IN) | payer MEDICARE, OTHER, SELFPAY ==
[2020-05-25] MEDS ORDERED: ONDANSETRON 4 MG/2 ML INJ IV ONE ×2 (06:39→12:53)
[2020-05-25] MEDS ORDERED: FAMOTIDINE 20 MG/2 ML INJ IV ONE (06:39)
[2020-05-25] MEDS ORDERED: SODIUM CHLORIDE 0.9% 1000 ML 1,000 ML IV ONE ×2 (06:39→06:41)
--- NOTE | 2020-05-25 06:57 | Emergency Department Report ---
ED GI Bleed HPI - General Chief complaint: GI Bleed Stated complaint: VOMITING BLOOD Time Seen by Provider: 05/25/20 06:30 Source: EMS Mode of arrival: Stretcher Limitations: No Limitations - History of Present Illness Initial comments: Patient is a 29-year-old male past medical history of alcoholic cirrhosis and hemoptysis who presents with hemoptysis today patient states that he was drinking a pint of vodka and he had one episode of bloody vomiting patient currently right now denies any pain. Was brought in by EMS they try to get IV access but were unable to. Patient was admitted to the hospital last year for similar symptoms. Patient states that he has only has some slight epigastric pain is a 3 out of 10. Nothing makes it better nothing makes it worse - Related Data Previous Rx's Medication Instructions Recorded Last Taken Type Pantoprazole [Protonix TAB] 40 mg PO BID #60 tablet 03/19/19 Unknown Rx predniSONE 10 mg PO .TAPER #42 tab 03/19/19 Unknown Rx Allergies Allergy/AdvReac Type Severity Reaction Status Date / Time No Known Allergies Allergy Verified 03/08/19 12:31 ED Review of Systems ROS: Stated complaint: VOMITING BLOOD Other details as noted in HPI Constitutional: denies: chills, fever Eyes: denies: eye pain, eye discharge, vision change ENT: denies: ear pain, throat pain Respiratory: denies: cough, shortness of breath, wheezing Cardiovascular: denies: chest pain, palpitations Endocrine: no symptoms reported Gastrointestinal: nausea, vomiting, hematemesis. denies: abdominal pain, diarrhea, hematochezia Genitourinary: denies: urgency, dysuria Musculoskeletal: denies: back pain, joint swelling, arthralgia Skin: denies: rash, lesions Neurological: denies: headache, weakness, paresthesias Psychiatric: denies: anxiety, depression Hematological/Lymphatic: denies: easy bleeding, easy bruising ED Past Medical Hx - Past Medical History Previous Medical History?: Yes Hx Hypertension: No Hx Heart Attack/AMI: No Hx Liver Disease: Yes (worsening transaminitis) Hx Renal Disease: Yes (ADRIANNE) - Surgical History Past Surgical History?: No - Social History Smoking Status: Current Every Day Smoker Substance Use Type: Alcohol - Medications Home Medications: Home Medications Medication Instructions Recorded Confirmed Last Taken Type Pantoprazole [Protonix TAB] 40 mg PO BID #60 tablet 03/19/19 Unknown Rx predniSONE 10 mg PO .TAPER #42 tab 03/19/19 Unknown Rx ED Physical Exam - General Limitations: No Limitations General appearance: alert, in no apparent distress - Head Head exam: Present: atraumatic, normocephalic - Eye Eye exam: Present: normal appearance - ENT ENT exam: Present: mucous membranes moist - Neck Neck exam: Present: normal inspection - Respiratory Respiratory exam: Present: normal lung sounds bilaterally. Absent: respiratory distress - Cardiovascular Cardiovascular Exam: Present: normal rhythm, tachycardia. Absent: systolic murmur, diastolic murmur, rubs, gallop - GI/Abdominal GI/Abdominal exam: Present: soft, normal bowel sounds - Rectal Rectal exam: Present: deferred - Extremities Exam Extremities exam: Present: normal inspection - Back Exam Back exam: Present: normal inspection - Neurological Exam Neurological exam: Present: alert, oriented X3 - Psychiatric Psychiatric exam: Present: normal affect, normal mood - Skin Skin exam: Present: warm, dry, intact, normal color. Absent: rash ED Course Vital Signs 05/25/20 05/25/20 05/25/20 06:36 07:45 08:30 Temperature 98.6 F Pulse Rate 137 H 131 H Respiratory 16 11 L Rate Blood Pressure 115/59 115/59 Blood Pressure 111/56 [Left] O2 Sat by Pulse 99 99 94 Oximetry 05/25/20 05/25/20 05/25/20 09:00 09:45 10:00 Temperature Pulse Rate 127 H 113 H Respiratory 15 15 Rate Blood Pressure 134/66 116/56 122/53 Blood Pressure [Left] O2 Sat by Pulse 100 100 100 Oximetry 05/25/20 05/25/20 11:00 12:00 Temperature Pulse Rate 119 H 117 H Respiratory 14 16 Rate Blood Pressure 130/52 113/59 Blood Pressure [Left] O2 Sat by Pulse 99 100 Oximetry - Consultations Consultation #1: 05/25/20 10:[address] Piedra patient will be needing to be admitted.will be placed on an octerotide and protonix gtt and will the a ct scan of the abdomen and pelvis ED Medical Decision Making - Lab Data Result diagrams: 05/25/20 07:24 05/25/20 07:24 Lab Results 05/25/20 05/25/20 05/25/20 Range/Units 07:24 07:24 07:24 WBC 7.5 (4.5-11.0) K/mm3 RBC 2.86 L (3.65-5.03) M/mm3 Hgb 10.2 L (11.8-15.2) gm/dl Hct 29.5 L (35.5-45.6) % MCV 103 H (84-94) fl MCH 36 H (28-32) pg MCHC 35 H (32-34) % RDW 17.3 H (13.2-15.2) % Plt Count 69 L (140-440) K/mm3 Lymph % (Auto) 23.0 (13.4-35.0) % Rooks % (Auto) 6.5 (0.0-7.3) % Eos % (Auto) 0.7 (0.0-4.3) % Baso % (Auto) 2.2 H (0.0-1.8) % Lymph # (Auto) 1.7 (1.2-5.4) K/mm3 Rooks # (Auto) 0.5 (0.0-0.8) K/mm3 Eos # (Auto) 0.1 (0.0-0.4) K/mm3 Baso # (Auto) 0.2 H (0.0-0.1) K/mm3 Seg Neutrophils % 67.6 (40.0-70.0) % Seg Neutrophils # 5.0 (1.8-7.7) K/mm3 PT 18.8 H (12.2-14.9) Sec. INR 1.55 H (0.87-1.13) APTT 32.3 (24.2-36.6) Sec. Sodium 141 (137-145) mmol/L Potassium 3.7 (3.6-5.0) mmol/L Chloride 94.8 L (98-107) mmol/L Carbon Dioxide 24 (22-30) mmol/L Anion Gap 26 mmol/L BUN 13 (9-20) mg/dL Creatinine 0.7 L (0.8-1.3) mg/dL Estimated GFR > 60 ml/min BUN/Creatinine Ratio 19 % Glucose 173 H (75-100) mg/dL Lactic Acid (0.7-2.0) mmol/L Calcium 8.3 L (8.4-10.2) mg/dL Total Bilirubin 7.40 H (0.1-1.2) mg/dL AST 447 H (5-40) units/L ALT 101 H (7-56) units/L Alkaline Phosphatase 93 (35-129) units/L Total Protein 8.6 H (6.3-8.2) g/dL Albumin 3.1 L (3.9-5) g/dL Albumin/Globulin Ratio 0.6 % Lipase 21 (13-60) units/L Blood Type Antibody Screen 05/25/20 05/25/20 05/25/20 Range/Units 07:24 07:24 08:09 WBC (4.5-11.0) K/mm3 RBC (3.65-5.03) M/mm3 Hgb (11.8-15.2) gm/dl Hct (35.5-45.6) % MCV (84-94) fl MCH (28-32) pg MCHC (32-34) % RDW (13.2-15.2) % Plt Count (140-440) K/mm3 Lymph % (Auto) (13.4-35.0) % Rooks % (Auto) (0.0-7.3) % Eos % (Auto) (0.0-4.3) % Baso % (Auto) (0.0-1.8) % Lymph # (Auto) (1.2-5.4) K/mm3 Rooks # (Auto) (0.0-0.8) K/mm3 Eos # (Auto) (0.0-0.4) K/mm3 Baso # (Auto) (0.0-0.1) K/mm3 Seg Neutrophils % (40.0-70.0) % Seg Neutrophils # (1.8-7.7) K/mm3 PT (12.2-14.9) Sec. INR (0.87-1.13) APTT (24.2-36.6) Sec. Sodium (137-145) mmol/L Potassium (3.6-5.0) mmol/L Chloride (98-107) mmol/L Carbon Dioxide (22-30) mmol/L Anion Gap mmol/L BUN (9-20) mg/dL Creatinine (0.8-1.3) mg/dL Estimated GFR ml/min BUN/Creatinine Ratio % Glucose (75-100) mg/dL Lactic Acid 12.70 H* 12.90 H* (0.7-2.0) mmol/L Calcium (8.4-10.2) mg/dL Total Bilirubin (0.1-1.2) mg/dL AST (5-40) units/L ALT (7-56) units/L Alkaline Phosphatase (35-129) units/L Total Protein (6.3-8.2) g/dL Albumin (3.9-5) g/dL Albumin/Globulin Ratio % Lipase (13-60) units/L Blood Type AB POSITIVE Antibody Screen Negative - EKG Data -: EKG Interpreted by Me - EKG Data EKG time 9: 21 rate 156 sinus tachycardia signs of inferior infarct and prolonged QT interval impression abnormal EKG 05/25/20 09:26 - Medical Decision Making Chief medical diagnosis: Hemoptysis secondary to alcoholic cirrhosis Differential medical diagnosis: Coagulopathy, gastric ulcer I will get GI consult I will get CBC elevated BMP I will get type and screen I will give IV fluids IV Pepcid and I will reevaluate the patient they need an octreotide drip Critical Care Time: Yes Critical care time in (mins) excluding proc time.: 60 Critical care attestation.: If time is entered above; I have spent that time in minutes in the direct care of this critically ill patient, excluding procedure time. ED Disposition Clinical Impression: Upper GI bleed, Acidosis, Alcoholism Sepsis Qualifiers: Sepsis type: sepsis due to unspecified organism Sepsis acute organ dysfunction status: unspecified Qualified Code(s): A41.9 - Sepsis, unspecified organism Cirrhosis Qualifiers: Hepatic cirrhosis type: alcoholic cirrhosis Ascites presence: without ascites Qualified Code(s): K70.30 - Alcoholic cirrhosis of liver without ascites Disposition: OP ADMIT IP TO THIS HOSP Is pt being admited?: Yes Does the pt Need Aspirin: Yes Condition: Stable Referrals: PRIMARY CARE,MD [Primary Care Provider] - 3-5 Days Forms: Accompanied Note
--- NOTE | 2020-05-25 07:14 | XRay Report ---
CHEST 1 VIEW 05/25/2020 6:41 AM INDICATION / CLINICAL INFORMATION: eval. COMPARISON: None available. FINDINGS: SUPPORT DEVICES: None. HEART / MEDIASTINUM: No significant abnormality. LUNGS / PLEURA: No significant pulmonary or pleural abnormality. No pneumothorax. ADDITIONAL FINDINGS: No significant additional findings. IMPRESSION: 1. No acute findings. Signer Name: Kehinde Armstrong MD Signed: 05/25/2020 7:10 AM Workstation Name: [email or web address]
[2020-05-25 07:37] LABS: Basophils # (Auto) 0.2 K/mm3 (0.0-0.1); Basophils % (Auto) 2.2 % (0.0-1.8); Eosinophils # (Auto) 0.1 K/mm3 (0.0-0.4); Eosinophils % (Auto) 0.7 % (0.0-4.3); Hematocrit 29.5 % (35.5-45.6); Hemoglobin 10.2 gm/dl (11.8-15.2); Lymphocytes # (Auto) 1.7 K/mm3 (1.2-5.4); Mean Corpuscular HGB Conc 35 % (32-34); Mean Corpuscular Volume 103 fl (84-94); Monocytes # (Auto) 0.5 K/mm3 (0.0-0.8); Monocytes % (Auto) 6.5 % (0.0-7.3); Red Blood Count 2.86 M/mm3 (3.65-5.03); Red Cell Distribution Width 17.3 % (13.2-15.2)
[2020-05-25 07:44] LABS: Platelet Count 69 K/mm3 (140-440)
[2020-05-25 07:51] LABS: INR 1.55 (0.87-1.13)
[2020-05-25 07:52] LABS: Partial Thromboplastin Time 32.3 Sec. (24.2-36.6)
[2020-05-25 07:55] LABS: Alanine Aminotransferase 101 units/L (7-56); Albumin 3.1 g/dL (3.9-5); Blood Urea Nitrogen 13 mg/dL (9-20); Calcium 8.3 mg/dL (8.4-10.2); Hemolysis Index 0
[2020-05-25 07:56] LABS: BUN/Creatinine Ratio 19
[2020-05-25] MEDS ORDERED: cefTRIAXone/NS 2 GM/100 ML 2 GM/100 ML BAG IV ONE (09:26)
[2020-05-25] MEDS ORDERED: LORazepam 2 MG/ML VIAL IV ONE ×2 (09:34→14:44)
[2020-05-25] MEDS: PANTOPRAZOLE 80 MG in SODIUM CHLORIDE 0.9% 100 ML IV SCH (10:33)
[2020-05-25] MEDS: OCTREOTIDE 500 MCG in SODIUM CHLORIDE 0.9% 100 ML IV SCH (10:34)
--- NOTE | 2020-05-25 11:09 | Gastroenterology Consultation ---
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 Patient is drowsy after receiving ativan and is not able to give full history. Reports having vomiting blood this morning. No cough or sob. He drank vodka this morning and has been drinking almost daily. No BM. Of note, he was admitted in 03/2019 for GI bleed and had EGD with banding of distal esophageal varices. Hospitalization complicated with respiratory failure and renal failure. He had repeat EGD in 04/2019 and had repeat esophageal variceal banding as outpatient. He did not follow up in clinic since then and has not been taking nadolol. In the ED, work up notable for elevated lactic acid at 13, elevated liver enzymes, AST 400s, ALT 100s, Tbili 7. INR at 1.5. CXR normal. VS with tachycardia in 130s. Medication list reviewed. Past History Past Medical History: hepatitis, liver disease Past Surgical History: No surgical history Social history: lives with family, alcohol abuse Family history: no significant family history Medications and Allergies Allergies Allergy/AdvReac Type Severity Reaction Status Date / Time No Known Allergies Allergy Verified 03/08/19 12:31 Home Medications Medication Instructions Recorded Confirmed Last Taken Type Pantoprazole [Protonix TAB] 40 mg PO BID #60 tablet 03/19/19 Unknown Rx predniSONE 10 mg PO .TAPER #42 tab 03/19/19 Unknown Rx Active Meds: Active Medications Octreotide Acetate 500 mcg/ (Sodium Chloride) 101 mls @ 5.05 mls/hr IV TITR CHARLIE; Protocol Last Admin: 05/25/20 10:34 Dose: 25 mcg/hr, 5.05 mls/hr Documented by: Pantoprazole Sodium 80 mg/ (Sodium Chloride) 100 mls @ 10 mls/hr IV DIRECT CHARLIE Last Admin: 05/25/20 10:33 Dose: 8 mg/hr, 10 mls/hr Documented by: Review of Systems - Review of Systems Constitutional: no weight loss, no weight gain Cardiovascular: no chest pain, no edema Gastrointestinal: abdominal pain, nausea, vomiting, hematemesis Neurological: weakness Hematologic/Lymphatic: no easy bruising Allergic/Immunologic: no wheezing Exam - Constitutional Vital Signs: Temp Pulse Resp BP Pulse Ox 98.6 F 127 H 15 116/56 100 05/25/20 06:36 05/25/20 09:45 05/25/20 09:45 05/25/20 09:45 05/25/20 09:45 General appearance: mild distress - EENT ENT: hearing intact - Respiratory Respiratory effort: normal - Cardiovascular Heart Sounds: Present: S1 & S2 - Gastrointestinal General gastrointestinal: Present: soft, non-tender, non-distended - Integumentary Integumentary: Present: clear - Psychiatric Psychiatric: cooperative - Labs CBC & Chem 7: 05/25/20 14:20 05/25/20 07:24 Lab Results: Laboratory Results - last 24 hr 05/25/20 05/25/20 05/25/20 07:24 07:24 07:24 WBC 7.5 RBC 2.86 L Hgb 10.2 L Hct 29.5 L MCV 103 H MCH 36 H MCHC 35 H RDW 17.3 H Plt Count 69 L Lymph % (Auto) 23.0 [place] % (Auto) 6.5 Eos % (Auto) 0.7 Baso % (Auto) 2.2 H Lymph # (Auto) 1.7 [place] # (Auto) 0.5 Eos # (Auto) 0.1 Baso # (Auto) 0.2 H Seg Neutrophils % 67.6 Seg Neutrophils # 5.0 PT 18.8 H INR 1.55 H APTT 32.3 Sodium 141 Potassium 3.7 Chloride 94.8 L Carbon Dioxide 24 Anion Gap 26 BUN 13 Creatinine 0.7 L Estimated GFR > 60 BUN/Creatinine Ratio 19 Glucose 173 H Lactic Acid Calcium 8.3 L Total Bilirubin 7.40 H AST 447 H ALT 101 H Alkaline Phosphatase 93 Total Protein 8.6 H Albumin 3.1 L Albumin/Globulin Ratio 0.6 Lipase 21 Blood Type Antibody Screen 05/25/20 05/25/20 05/25/20 07:24 07:24 08:09 WBC RBC Hgb Hct MCV MCH MCHC RDW Plt Count Lymph % (Auto) [place] % (Auto) Eos % (Auto) Baso % (Auto) Lymph # (Auto) [place] # (Auto) Eos # (Auto) Baso # (Auto) Seg Neutrophils % Seg Neutrophils # PT INR APTT Sodium Potassium Chloride Carbon Dioxide Anion Gap BUN Creatinine Estimated GFR BUN/Creatinine Ratio Glucose Lactic Acid 12.70 H* 12.90 H* Calcium Total Bilirubin AST ALT Alkaline Phosphatase Total Protein Albumin Albumin/Globulin Ratio Lipase Blood Type AB POSITIVE Antibody Screen Negative Assessment and Plan - Patient Problems (1) Acute upper GI bleed Current Visit: No Status: Acute Plan to address problem: # Hematemesis - upper GI bleed - h/o cirrhosis and prior esophageal variceal bleeding. - tachycardic with HR in 120-130s. - Hgb at 10. - concerning for recurrent esophageal variceal bleeding. Rec - will plan for EGD. - keep NPO - octreotide and protonix IV - ceftriaxone for empiric antibiotics. - spoke with Family on the phone. (2) Cirrhosis Current Visit: Yes Status: Acute Qualifiers: Hepatic cirrhosis type: alcoholic cirrhosis Ascites presence: without ascites Qualified Code(s): K70.30 - Alcoholic cirrhosis of liver without ascites Plan to address problem: # Cirrhosis: 2/2 alcohol. persistent use of alcohol with last use this morning. - Elevated LFTs with Tbili at 7 and INR at 1.5 - monitor CMP and INR.
[2020-05-25 12:17] LABS: Hematocrit 24.2 % (35.5-45.6); Hemoglobin 8.3 gm/dl (11.8-15.2); Mean Corpuscular HGB Conc 34 % (32-34); Mean Corpuscular Volume 103 fl (84-94); Platelet Count 60 K/mm3 (140-440); Red Blood Count 2.34 M/mm3 (3.65-5.03); Red Cell Distribution Width 17.5 % (13.2-15.2)
--- NOTE | 2020-05-25 12:42 | History and Physical Report ---
History of Present Illness Date of examination: 05/25/20 Date of admission: 05/25/20 Chief complaint: Hematemesis History of present illness: 29-year-old male patient with significant past medical history of chronic alcohol use, cirrhosis liver, alcoholic liver disease, history of esophageal varices with banding in the past. Blood loss anemia requiring multiple tra nsfusions in the past presented to the emergency room with hematemesis. Patient gives history of chronic alcohol use, drank alcohol/vodka this morning. Patient is drowsy but able to give proper history Initial evaluation in the emergency room is consistent with mild drop in H&H, transaminitis, coagulopathy, and sinus tachycardia. Past History Past Medical History: hepatitis, liver disease, other (Cirrhosis liver, chronic alcohol use) Past Surgical History: No surgical history, Other (Variceal banding) Social history: lives with family, alcohol abuse Family history: no significant family history Medications and Allergies Allergies Allergy/AdvReac Type Severity Reaction Status Date / Time No Known Allergies Allergy Verified 03/08/19 12:31 Home Medications Medication Instructions Recorded Confirmed Last Taken Type Pantoprazole [Protonix TAB] 40 mg PO BID #60 tablet 03/19/19 Unknown Rx predniSONE 10 mg PO .TAPER #42 tab 03/19/19 Unknown Rx Active Meds: Active Medications Octreotide Acetate 500 mcg/ (Sodium Chloride) 101 mls @ 5.05 mls/hr IV TITR CHARLIE; Protocol Last Admin: 05/25/20 10:34 Dose: 25 mcg/hr, 5.05 mls/hr Documented by: Pantoprazole Sodium 80 mg/ (Sodium Chloride) 100 mls @ 10 mls/hr IV DIRECT CHARLIE Last Admin: 05/25/20 10:33 Dose: 8 mg/hr, 10 mls/hr Documented by: Review of Systems Constitutional: weakness, no weight loss, no weight gain, no fever, no chills Ears, nose, mouth and throat: no nasal congestion, no nasal discharge Cardiovascular: no chest pain, no orthopnea, no shortness of breath Respiratory: no cough, no shortness of breath Gastrointestinal: vomiting, hematemesis, no nausea Genitourinary Male: no dysuria, no flank pain Integumentary: no rash, no lesions Neurological: no seizures, no syncope Psychiatric: no anxiety, no depression Endocrine: no cold intolerance, no heat intolerance Hematologic/Lymphatic: no easy bruising, no easy bleeding Allergic/Immunologic: no urticaria, no allergic rhinitis Exam - Constitutional Vitals: Temp Pulse Resp BP Pulse Ox 98.6 F 117 H 16 113/59 100 05/25/20 06:36 05/25/20 12:00 05/25/20 12:00 05/25/20 12:00 05/25/20 12:00 General appearance: Present: mild distress, well-nourished, other (Drowsy) - EENT Eyes: Present: PERRL, EOM intact - Neck Neck: Present: supple, normal ROM - Respiratory Respiratory effort: normal Respiratory: bilateral: diminished, negative: rales, rhonchi, wheezing - Cardiovascular Rhythm: regular Heart Sounds: Present: S1 & S2 - Extremities Extremities: no ischemia, No edema - Abdominal General gastrointestinal: Present: soft, non-tender, non-distended, normal bowel sounds - Integumentary Integumentary: Present: clear, warm - Musculoskeletal Musculoskeletal: strength equal bilaterally, generalized weakness - Psychiatric Psychiatric: appropriate mood/affect, cooperative - Neurologic Neurologic: CNII-XII intact, moves all extremities Results - Labs CBC & Chem 7: 05/25/20 14:20 05/25/20 07:24 Labs: Abnormal lab results 05/25/20 05/25/20 05/25/20 Range/Units 07:24 07:24 07:24 RBC 2.86 L (3.65-5.03) M/mm3 Hgb 10.2 L (11.8-15.2) gm/dl Hct 29.5 L (35.5-45.6) % MCV 103 H (84-94) fl MCH 36 H (28-32) pg MCHC 35 H (32-34) % RDW 17.3 H (13.2-15.2) % Plt Count 69 L (140-440) K/mm3 Baso % (Auto) 2.2 H (0.0-1.8) % Baso # (Auto) 0.2 H (0.0-0.1) K/mm3 PT 18.8 H (12.2-14.9) Sec. INR 1.55 H (0.87-1.13) Chloride 94.8 L (98-107) mmol/L Creatinine 0.7 L (0.8-1.3) mg/dL Glucose 173 H (75-100) mg/dL Lactic Acid (0.7-2.0) mmol/L Calcium 8.3 L (8.4-10.2) mg/dL Total Bilirubin 7.40 H (0.1-1.2) mg/dL AST 447 H (5-40) units/L ALT 101 H (7-56) units/L Total Protein 8.6 H (6.3-8.2) g/dL Albumin 3.1 L (3.9-5) g/dL 05/25/20 05/25/20 05/25/20 Range/Units 07:24 08:09 10:40 RBC (3.65-5.03) M/mm3 Hgb (11.8-15.2) gm/dl Hct (35.5-45.6) % MCV (84-94) fl MCH (28-32) pg MCHC (32-34) % RDW (13.2-15.2) % Plt Count (140-440) K/mm3 Baso % (Auto) (0.0-1.8) % Baso # (Auto) (0.0-0.1) K/mm3 PT (12.2-14.9) Sec. INR (0.87-1.13) Chloride (98-107) mmol/L Creatinine (0.8-1.3) mg/dL Glucose (75-100) mg/dL Lactic Acid 12.70 H* 12.90 H* 14.40 H* (0.7-2.0) mmol/L Calcium (8.4-10.2) mg/dL Total Bilirubin (0.1-1.2) mg/dL AST (5-40) units/L ALT (7-56) units/L Total Protein (6.3-8.2) g/dL Albumin (3.9-5) g/dL 05/25/20 05/25/20 Range/Units 12:00 12:00 RBC 2.34 L (3.65-5.03) M/mm3 Hgb 8.3 L (11.8-15.2) gm/dl Hct 24.2 L (35.5-45.6) % MCV 103 H (84-94) fl MCH 36 H (28-32) pg MCHC (32-34) % RDW 17.5 H (13.2-15.2) % Plt Count 60 L (140-440) K/mm3 Baso % (Auto) (0.0-1.8) % Baso # (Auto) (0.0-0.1) K/mm3 PT (12.2-14.9) Sec. INR (0.87-1.13) Chloride (98-107) mmol/L Creatinine (0.8-1.3) mg/dL Glucose (75-100) mg/dL Lactic Acid 12.50 H* (0.7-2.0) mmol/L Calcium (8.4-10.2) mg/dL Total Bilirubin (0.1-1.2) mg/dL AST (5-40) units/L ALT (7-56) units/L Total Protein (6.3-8.2) g/dL Albumin (3.9-5) g/dL Assessment and Plan --Acute upper GI bleeding/hematemesis N.p.o., Protonix drip Octreotide, GI evaluation noted and appreciated Possible endoscopy --Acute blood loss anemia; Type and cross, transfuse 2 units of PRBC as needed --History of variceal bleed; Octreotide, n.p.o., start endoscopy GI evaluation noted appreciated --History of alcoholic liver disease; Elevated transaminases Closely monitor --Coagulopathy; Secondary to alcoholic liver disease/cirrhosis Vitamin K, FFP's as needed --Lactic acidosis; IV hydration, closely monitor --History of chronic alcohol use; Strongly advised to quit alcohol intake Thiamine folic acid IV fluids --Monitor alcohol withdrawal symptoms; WA protocol --DVT prophylaxis; SCDs No pharmacological anticoagulation in view of severe anemia Severe GI bleeding Closely monitor patient and adjust management as needed Patient is critically ill with guarded prognosis Critical care time 55 minutes
[2020-05-25] MEDS ORDERED: MAGNESIUM SULFATE 2 GM/50 ML BAG IV ONE (12:53)
[2020-05-25] MEDS ORDERED: MORPHINE 2 MG/1 ML INJ IV PRN (12:53)
[2020-05-25] MEDS ORDERED: THIAMINE 100 MG in SODIUM CHLORIDE 0.9% 50 ML IV SCH (13:00)
[2020-05-25] MEDS ORDERED: FOLIC ACID 1 MG in SODIUM CHLORIDE 0.9% 50 ML IV SCH (13:00)
--- NOTE | 2020-05-25 13:06 | Cat Scan Report ---
CT ABDOMEN AND PELVIS WITH CONTRAST HISTORY: gi bleed. COMPARISON: None. TECHNIQUE: CT images of the abdomen and pelvis were obtained following administration of intravenous contrast. All CT scans at this location are performed using CT dose reduction for ALARA by means of automated exposure control. CONTRAST: 100 ml of intravenous contrast administered. FINDINGS: Lungs/bones: Lung bases are clear. There are degenerative changes within the spine and pelvis with n o acute osseous abnormality identified. Abdomen/pelvis: There is moderate hepatic steatosis. No liver mass or biliary ductal dilatation iden tified. No ascites. There is significant gallbladder wall edema with only a couple tiny gallstones an d again no biliary ductal dilatation. There is mild dilatation of the pancreatic duct leading up to a low-attenuation area measuring 1.4 cm which may represent further ductal dilatation or a cystic structure. There is also mild stranding ab out the pancreatic tail with no fluid collection or calcifications. The spleen, adrenals, kidneys, and proximal GI tract appear unremarkable. Urinary bladder is distended. There is no pelvic free fluid or acute colonic abnormality. There is mi ld stranding tracking along each respective paracolic gutter with areas of mild wall thickening most notably on the descending colon. The terminal ileum and appendix are normal. The prostate is normal a nd there is no significant pelvic free fluid. IMPRESSION: 1. Findings most likely reflecting liver and pancreatic disease with abnormal lobulated and low atten uation appearance of the liver and also inflammatory stranding about the pancreatic tail with associa isabell ductal dilatation. Correlate with LFTs and lipase level since pancreatitis is in the differential . Further, considerable gallbladder wall thickening is noted but there is only minimal stone disease and these findings may be related to a hepatic etiology. If there is high clinical concern for cholec ystitis, recommend HIDA scan. Ultrasound will likely be of limited utility. 2. Stranding along each respective paracolic gutter with mild wall thickening most notably along the descending colon. This could be reactive given adjacent inflammatory changes tracking to the pancreas ; however, given the history of GI bleed, consider colitis in the differential. 3. Low-attenuation structure in the pancreatic body as outlined above. Differential considerations in clude an area of ductal dilatation, a cystic structure, or a low-attenuation neoplasm. Signer Name: Rai Hairston MD Signed: 05/25/2020 1:02 PM Workstation Name: [id number]
[2020-05-25 15:05] LABS: Hematocrit 24.3 % (35.5-45.6); Hemoglobin 8.3 gm/dl (11.8-15.2)
--- NOTE | 2020-05-25 16:20 | Anesthesia Consultation ---
Anesthesia Consult and Med Hx Date of service: 05/25/20 - Airway Anesthetic Teeth Evaluation: Poor ROM Head & Neck: Adequate Mental/Hyoid Distance: Adequate Mallampati Class: Class II Intubation Access Assessment: Probably Good - Pulmonary Exam CTA: Yes - Pre-Operative Health Status ASA Pre-Surgery Classification: ASA3, Emergency Proposed Anesthetic Plan: MAC - Pulmonary Hx Smoking: Yes Hx Asthma: No Hx Respiratory Symptoms: Yes (Hx. Acute respiratory failure) Home Oxygen Therapy: No Hx Pneumonia: Yes (2019) Hx Sleep Apnea: No - Cardiovascular System Hx Hypertension: No Hx Heart Attack/AMI: No Hx Pacemaker: No Hx Internal Defibrillator: No - Central Nervous System Hx Neuromuscular Disorder: No CVA: No Hx Psychiatric Problems: Yes (depression) - Gastrointestinal Hx Gastroesophageal Reflux Disease: Yes (Esophageal Varices with Upper GI bleeding) - Endocrine Hx Renal Disease: Yes (ADRIANNE) Hx Cirrhosis: Yes Hx Liver Disease: Yes (worsening transaminitis) Hx Insulin Dependent Diabetes: No Hx Non-Insulin Dependent Diabetes: No Hx Thyroid Disease: No - Hematic Hx Anemia: Yes (2/2 presumed GI bleed) - Other Systems Hx Alcohol Use: Yes (3 pints vodka daily) Hx Obesity: No - Additional Comments Anesthesia Medical History Comments: No known previous anesthesia complications
--- NOTE | 2020-05-25 16:33 | Anesthesia Day of Surgery ---
Anesthesia Day of Surgery - Day of Surgery Patient Examined: Yes Patient H&P Reviewed: Yes Patient is NPO: Yes Beta Blockers: No Cardiac Clearance: No Pulmonary Clearance: No
[2020-05-25] MEDS ORDERED: fentaNYL 100 MCG/2 ML INJ ONE (16:38)
[2020-05-25] MEDS ORDERED: ONDANSETRON 4 MG/2 ML INJ ONE (16:38)
[2020-05-25] MEDS ORDERED: propofoL 200 MG/20 ML VIAL IV ONE (16:38)
[2020-05-25] MEDS ORDERED: LIDOCAINE MPF (2%) 20 MG/1 ML VIAL 5 ML ONE (16:38)
[2020-05-25] MEDS ORDERED: SODIUM CHLORIDE 0.9% 1000 ML 1,000 ML ONE ×2 (16:41→17:45)
[2020-05-25] MEDS ORDERED: WATER FOR IRRIG STERILE 250 ML BOTTLE IR ONE (17:45)
[2020-05-25] MEDS ORDERED: WATER FOR IRRIG STERILE 1,000 ML BOTTLE ONE (17:45)
--- NOTE | 2020-05-25 17:51 | Operative Report ---
Operative Report Operative Report: Date:05/25/2020 Pre procedure diagnosis:hematemesis Post procedure diagnosis:portal hypertensive gastropathy, esophagitis, esophageal varices Procedure: Esophagogastroduodenoscopy Endoscopist: Bebo Piedra MD Medications: Per anesthesia- see separate records for details Complications:none Estimated blood loss: None After careful discussion of the nature and purpose of the procedure, details of the technique, risks, benefits and alternatives, the patient gave consent. The patient was placed in the left lateral decubitus position and medicated by anesthesia- see separate records for details. The tip of the olympus video upper scope was passed per orum under direct view through the mouth and into the esophagus, stomach and duodenum. The scope was advanced to the secondportion of the duodenum without difficulty. The second portion of the duodenumrevealed old blood. The bulb revealed normal findings. The scope was withdrawn back into the stomach and the stomach gently insufflated with air. The antrum revealed mild erythematous mucosa. The scope was then retroflexed and partially withdrawn to inspect the proximal stomach. The cardia and fundus were normal without obvious gastric varices. Gastric body showed portal hypertensive gastropathy changes. There were scattered old blood in the gastric body. The scope was then withdrawn in the forward view. The EG junction was at 38 cm. There was moderate esophagitis in the GE junction. The distal esophagus showed 2-3 large esophageal varices with erythema but no active bleeding. Banding ligation performed with 3 bands placed successfully. The rest of the esophagus was normal. The procedure was well tolerated and the patient was observed in the GI recovery unit. IMPRESSION: 1. Portal hypertensive gastropathy. 2. Moderate esophagitis at GE junction. No active bleeding. 3. Large distal esophageal varices with erythema. No active bleeding. Banding ligation with 3 bands placed. Plan: 1. Keep NPO 2. Recommend close monitoring IMCU with low threshold for ICU transfer. 3. Cont with Octreotide for 72 hrs. 4. Cont with PPI IV 5. Ceftriaxone for empiric antibiotics 6. Monitor H/H and INR. 7. Monitor CMP. 8. Discussed with IMS service, Dr. Ochoa. Updated patient's mother on the phone.
--- NOTE | 2020-05-25 18:18 | Post Anesthesia Evaluation ---
- Post Anesthesia Evaluation Patient Participated: Yes Airway Patent: Yes Stable Respiratory Function: Yes Nausea/Vomiting: No Temp > 96.8F: Yes Pain Manageable: Yes Adequeate Hydration: Yes Anesthesia Complications: No Block Receding Appropriately: Not Applicable Patient on Ventilator: No
[2020-05-25] MEDS ORDERED: LORazepam 2 MG/ML VIAL IV PRN ×2 (19:39)
[2020-05-25] MEDS ORDERED: LORazepam 2 MG/ML VIAL ONE (19:40)
[2020-05-25] MEDS: LORazepam 2 MG/ML VIAL IV PRN ×2 (19:46→21:54)
[2020-05-25 21:51] LABS: Hematocrit 22.7 % (35.5-45.6); Hemoglobin 7.6 gm/dl (11.8-15.2)
[2020-05-26] MEDS: PANTOPRAZOLE 80 MG in SODIUM CHLORIDE 0.9% 100 ML IV SCH (01:54)
[2020-05-26] MEDS: OCTREOTIDE 500 MCG in SODIUM CHLORIDE 0.9% 100 ML IV SCH (01:54)
[2020-05-26] MEDS: LORazepam 2 MG/ML VIAL IV PRN ×2 (02:14→15:15)
[2020-05-26 06:18] LABS: Basophils % (Auto) 0.4 % (0.0-1.8); Eosinophils # (Auto) 0.1 K/mm3 (0.0-0.4); Eosinophils % (Auto) 1.2 % (0.0-4.3); Hematocrit 23.3 % (35.5-45.6); Hemoglobin 7.5 gm/dl (11.8-15.2); Lymphocytes # (Auto) 1.4 K/mm3 (1.2-5.4); Lymphocytes % (Auto) 13.5 % (13.4-35.0); Mean Corpuscular HGB Conc 32 % (32-34); Monocytes # (Auto) 0.7 K/mm3 (0.0-0.8); Monocytes % (Auto) 6.2 % (0.0-7.3); Red Blood Count 2.06 M/mm3 (3.65-5.03)
[2020-05-26 06:20] LABS: Mean Corpuscular Volume 113 fl (84-94); Platelet Count 52 K/mm3 (140-440)
[2020-05-26 06:23] LABS: Alanine Aminotransferase 116 units/L (7-56); Albumin 2.9 g/dL (3.9-5); Blood Urea Nitrogen 15 mg/dL (9-20); Calcium 8.1 mg/dL (8.4-10.2); Hemolysis Index 84
[2020-05-26 06:27] LABS: BUN/Creatinine Ratio 75
[2020-05-26] MEDS ORDERED: SODIUM CHLORIDE 0.9% 500 ML 500 ML IV NR (07:54)
--- NOTE | 2020-05-26 07:54 | Progress Note ---
Assessment and Plan Assessment and plan: --Acute upper GI bleeding/hematemesis; Status post EGD and banding of varices on 05/25/2020 Start clear liquid advance as tolerated if okay with GI Continue Protonix drip, octreotide, GI following --Acute blood loss anemia; Hb dropped from 10.2 to 7.5 Transfuse 1 unit of PRBC Closely monitor H&H and transfuse additional PRBC as needed --History of variceal bleed; With recurrent variceal banding in the past --History of alcoholic liver disease/cirrhosis liver; With elevated transaminases and coagulopathy --High risk of bleeding secondary to cirrhosis liver coagulopathy And severe thrombocytopenia along with esophageal varices Patient strongly advised to quit alcohol intake Also advised to seek alcohol rehabilitation and join AAA support group --Coagulopathy; Secondary to alcoholic liver disease/cirrhosis Vitamin K, FFP's as needed --Severe thrombocytopenia; cirrhosis liver Closely monitored --Lactic acidosis; IV hydration, closely monitor --History of chronic alcohol use; Strongly advised to quit alcohol intake Thiamine folic acid IV fluids --Ongoing tobacco use; smoking cessation consult Nicotine patch if needed --Monitor alcohol withdrawal symptoms; CIWA protocol --DVT prophylaxis; SCDs No pharmacological anticoagulation in view of severe anemia Severe GI bleeding Restraints for safety Continue CIWY protocol We will monitor the patient and adjust management as needed Plan of care reviewed with the patient and his nurse History Interval history: I have seen and examined the patient at the bedside this morning Patient's chart and medications reviewed No new episodes of hematemesis Patient has alcohol withdrawal symptoms Restrained, On CIWA protocol Patient's hemoglobin dropped from 10.2 at the time of admission to 7.5 today We will transfuse 1 unit of PRBC Hospitalist Physical - Constitutional Vitals: Temp Pulse Resp BP Pulse Ox 98.8 F 151 H 18 142/60 100 05/26/20 06:01 05/26/20 06:01 05/26/20 06:01 05/26/20 06:01 05/26/20 06:01 General appearance: Present: mild distress, well-nourished, other (Agitated, restrained for safety) - EENT Eyes: Present: PERRL, EOM intact - Neck Neck: Present: supple, normal ROM - Respiratory Respiratory effort: normal Respiratory: bilateral: diminished, negative: rales, rhonchi, wheezing - Cardiovascular Rhythm: regular Heart Sounds: Present: S1 & S2 - Extremities Extremities: no ischemia, No edema - Abdominal General gastrointestinal: soft, non-tender, non-distended, normal bowel sounds - Integumentary Integumentary: Present: clear, warm - Psychiatric Psychiatric: appropriate mood/affect, agitated, other (Confused) - Neurologic Neurologic: moves all extremities Results - Labs CBC & Chem 7: 05/26/20 05:47 05/26/20 04:00 Labs: Laboratory Last Values WBC 10.5 K/mm3 (4.5-11.0) 05/26/20 05:47 RBC 2.06 M/mm3 (3.65-5.03) L 05/26/20 05:47 Hgb 7.5 gm/dl (11.8-15.2) L 05/26/20 05:47 Hct 23.3 % (35.5-45.6) L 05/26/20 05:47 MCV 113 fl (84-94) H 05/26/20 05:47 MCH 36 pg (28-32) H 05/26/20 05:47 MCHC 32 % (32-34) 05/26/20 05:47 RDW 18.0 % (13.2-15.2) H 05/26/20 05:47 Plt Count 52 K/mm3 (140-440) L 05/26/20 05:47 Lymph % (Auto) 13.5 % (13.4-35.0) 05/26/20 05:47 [place] % (Auto) 6.2 % (0.0-7.3) 05/26/20 05:47 Eos % (Auto) 1.2 % (0.0-4.3) 05/26/20 05:47 Baso % (Auto) 0.4 % (0.0-1.8) 05/26/20 05:47 Lymph # (Auto) 1.4 K/mm3 (1.2-5.4) 05/26/20 05:47 [place] # (Auto) 0.7 K/mm3 (0.0-0.8) 05/26/20 05:47 Eos # (Auto) 0.1 K/mm3 (0.0-0.4) 05/26/20 05:47 Baso # (Auto) 0.0 K/mm3 (0.0-0.1) 05/26/20 05:47 Seg Neutrophils % 78.7 % (40.0-70.0) H 05/26/20 05:47 Seg Neutrophils # 8.3 K/mm3 (1.8-7.7) H 05/26/20 05:47 PT 18.8 Sec. (12.2-14.9) H 05/25/20 07:24 INR 1.55 (0.87-1.13) H 05/25/20 07:24 APTT 32.3 Sec. (24.2-36.6) 05/25/20 07:24 Sodium 145 mmol/L (137-145) 05/26/20 04:00 Potassium 4.6 mmol/L (3.6-5.0) D 05/26/20 04:00 Chloride 105.0 mmol/L (98-107) 05/26/20 04:00 Carbon Dioxide 14 mmol/L (22-30) L D 05/26/20 04:00 Anion Gap 31 mmol/L 05/26/20 04:00 BUN 15 mg/dL (9-20) 05/26/20 04:00 Creatinine 0.2 mg/dL (0.8-1.3) L D 05/26/20 04:00 Estimated GFR > 60 ml/min 05/26/20 04:00 BUN/Creatinine Ratio 75 % 05/26/20 04:00 Glucose 158 mg/dL (75-100) H 05/26/20 04:00 Lactic Acid 12.20 mmol/L (0.7-2.0) H* 05/25/20 18:35 Calcium 8.1 mg/dL (8.4-10.2) L 05/26/20 04:00 Total Bilirubin 8.80 mg/dL (0.1-1.2) H 05/26/20 04:00 AST 458 units/L (5-40) H 05/26/20 04:00 ALT 116 units/L (7-56) H 05/26/20 04:00 Alkaline Phosphatase 73 units/L (35-129) 05/26/20 04:00 Total Protein 7.3 g/dL (6.3-8.2) 05/26/20 04:00 Albumin 2.9 g/dL (3.9-5) L 05/26/20 04:00 Albumin/Globulin Ratio 0.7 % 05/26/20 04:00 Lipase 21 units/L (13-60) 05/25/20 07:24 Blood Type AB POSITIVE 05/25/20 07:24 Antibody Screen Negative 05/25/20 07:24 Rios/IV: Voiding Method Toilet IV Catheter Type [Left Upper Mid-line arm] IV Catheter Type [Left Peripheral IV External Jugular] Active Medications - Current Medications Current Medications: Generic Name Dose Route Start Last Admin Trade Name Freq PRN Reason Stop Dose Admin Octreotide Acetate 500 mcg/ 101 mls @ 5.05 mls/hr 05/25/20 10:00 05/26/20 01:54 Sodium Chloride IV 25 mcg/hr TITR CHARLIE 5.05 mls/hr Administration Protocol 25 MCG/HR Pantoprazole Sodium 80 mg/ 100 mls @ 10 mls/hr 05/25/20 10:00 05/26/20 01:54 Sodium Chloride IV 8 mg/hr DIRECT CHARLIE 10 mls/hr Administration 8 MG/HR Folic Acid 1 mg/ Sodium 50.2 mls @ 200.8 mls/hr 05/25/20 13:00 05/25/20 14:40 Chloride IV 200.8 mls/hr QDAY CHARLIE Administration Thiamine HCl 100 mg/ Sodium 51 mls @ 100 mls/hr 05/25/20 13:00 05/25/20 14:41 Chloride IV 100 mls/hr QDAY CHARLIE Administration Lorazepam 2 mg 05/25/20 19:39 05/26/20 02:14 Ativan IV 2 mg Q1HR PRN Administration CIWA-Ar 8-15 Lorazepam 4 mg 05/25/20 19:39 Ativan IV Q1HR PRN CIWA-Ar 16-25 Lorazepam 4 mg 05/25/20 19:39 Ativan IV Q15MIN PRN CIWA-Ar >25 Morphine Sulfate 2 mg 05/25/20 12:53 Morphine IV Q4H PRN Pain, Moderate (4-6)
[2020-05-26] MEDS: FOLIC ACID 1 MG TAB PO SCH (11:02)
[2020-05-26] MEDS: THIAMINE 100 MG TAB PO SCH (11:02)
[2020-05-26] MEDS: NICOTINE 14 MG/24 HR PATCH TD SCH (11:03)
[2020-05-26] MEDS: PROPRANOLOL 10 MG TAB PO SCH ×2 (13:08→21:16)
[2020-05-26] MEDS: cefTRIAXone/NS 2 GM/100 ML 2 GM/100 ML BAG IV SCH (17:00)
--- NOTE | 2020-05-26 17:16 | Gastroenterology Progress Note ---
Assessment and Plan - Patient Problems (1) Acute upper GI bleed Current Visit: No Status: Acute Plan to address problem: # Hematemesis - upper GI bleed - /sp EGD showing large distal esophageal varices s/p 3 bands placed - No signs of recurrent bleeding. - H/H down to 7 and s/p 1 unit of PRBC today. Rec - continue with octreotide IV for total of 72 hrs. - continue with protonix IV. Transition to PO dosing tomorrow if H/H stable. - ceftriaxone for empiric antibiotics. Antibiotics for 5 days. (2) Cirrhosis Current Visit: Yes Status: Acute Qualifiers: Hepatic cirrhosis type: alcoholic cirrhosis Ascites presence: without ascites Qualified Code(s): K70.30 - Alcoholic cirrhosis of liver without ascites Plan to address problem: # Cirrhosis: 2/2 alcohol. persistent use of alcohol with last use this morning. - Elevated LFTs with Tbili, likely acute on chronic alcoholic hepatitis - monitor CMP and INR. - on [facility]KS protocol for withdrawal. Receiving ativan. Subjective Date of service: 05/26/20 Interval history: No acute events o/n. No BM. on CIWA protocol. Objective - Constitutional Vitals: Temp Pulse Resp BP Pulse Ox 100.0 F H 153 H 22 139/72 100 05/26/20 12:09 05/26/20 12:09 05/26/20 12:09 05/26/20 12:09 05/26/20 12:09 General appearance: no acute distress - EENT ENT: hearing intact - Respiratory Respiratory effort: normal - Cardiovascular Rhythm: regular Heart Sounds: Present: S1 & S2 - Gastrointestinal General gastrointestinal: Present: soft, non-tender, non-distended - Neurologic Neurological: disoriented - Labs CBC & Chem 7: 05/26/20 05:47 05/26/20 04:00 Labs: Laboratory Results - last 24 hr 05/25/20 05/25/20 05/25/20 07:24 18:35 21:30 WBC RBC Hgb 7.6 L Hct 22.7 L MCV MCH MCHC RDW Plt Count Lymph % (Auto) [place] % (Auto) Eos % (Auto) Baso % (Auto) Lymph # (Auto) [place] # (Auto) Eos # (Auto) Baso # (Auto) Seg Neutrophils % Seg Neutrophils # Sodium Potassium Chloride Carbon Dioxide Anion Gap BUN Creatinine Estimated GFR BUN/Creatinine Ratio Glucose Lactic Acid 12.20 H* Calcium Total Bilirubin AST ALT Alkaline Phosphatase Total Protein Albumin Albumin/Globulin Ratio Blood Type AB POSITIVE Antibody Screen Negative Crossmatch See Detail 05/26/20 05/26/20 05/26/20 04:00 05:47 08:05 WBC 10.5 RBC 2.06 L Hgb 7.5 L Hct 23.3 L MCV 113 H MCH 36 H MCHC 32 RDW 18.0 H Plt Count 52 L Lymph % (Auto) 13.5 [place] % (Auto) 6.2 Eos % (Auto) 1.2 Baso % (Auto) 0.4 Lymph # (Auto) 1.4 [place] # (Auto) 0.7 Eos # (Auto) 0.1 Baso # (Auto) 0.0 Seg Neutrophils % 78.7 H Seg Neutrophils # 8.3 H Sodium 145 Potassium 4.6 D Chloride 105.0 Carbon Dioxide 14 L D Anion Gap 31 BUN 15 Creatinine 0.2 L D Estimated GFR > 60 BUN/Creatinine Ratio 75 Glucose 158 H Lactic Acid 9.70 H* Calcium 8.1 L Total Bilirubin 8.80 H AST 458 H ALT 116 H Alkaline Phosphatase 73 Total Protein 7.3 Albumin 2.9 L Albumin/Globulin Ratio 0.7 Blood Type Antibody Screen Crossmatch 05/26/20 05/26/20 10:24 13:28 WBC RBC Hgb Hct MCV MCH MCHC RDW Plt Count Lymph % (Auto) [place] % (Auto) Eos % (Auto) Baso % (Auto) Lymph # (Auto) [place] # (Auto) Eos # (Auto) Baso # (Auto) Seg Neutrophils % Seg Neutrophils # Sodium Potassium Chloride Carbon Dioxide Anion Gap BUN Creatinine Estimated GFR BUN/Creatinine Ratio Glucose Lactic Acid 7.40 H* 6.50 H* Calcium Total Bilirubin AST ALT Alkaline Phosphatase Total Protein Albumin Albumin/Globulin Ratio Blood Type Antibody Screen Crossmatch
[2020-05-26] MEDS: SODIUM BICARBONATE 50 MEQ in SODIUM CHLORIDE 0.9% 1000 ML 1,000 ML IV SCH (21:00)
--- NOTE | 2020-05-27 07:39 | Progress Note ---
Assessment and Plan cute upper GI bleeding/hematemesis; Status post EGD banding of large varices on 05/25/2020 Start clear liquid advance as tolerated if okay with GI Continue Protonix drip, octreotide, GI following patient not tolerating advancement in diet secondary to encephalopathy. --Acute blood loss anemia; Hb dropped from 10.2 to 7.5 now to 6.6 will transfuse an additional unit of blood. Transfuse 1 unit of PRBC Closely monitor H&H and transfuse additional PRBC as needed --History of variceal bleed; With recurrent variceal banding in the past --History of alcoholic liver disease/cirrhosis liver; With elevated transaminases and coagulopathy ---Delirium tremors. Patient is on [facility] protocol continue with this. --High risk of bleeding secondary to cirrhosis liver coagulopathy And severe thrombocytopenia along with esophageal varices. This is secondary to the direct toxic effects of alcohol. Also advised to seek alcohol rehabilitation and join [facility] support group. Platelets have dropped to 25 will obtain transfusion. --Coagulopathy; Secondary to alcoholic liver disease/cirrhosis Vitamin K, FFP's as needed --Severe thrombocytopenia; cirrhosis liver will transfuse packed red blood cells and platelets. Closely monitored --Lactic acidosis; IV hydration, closely monitor --History of chronic alcohol use; Strongly advised to quit alcohol intake Thiamine folic acid IV fluids --Ongoing tobacco use; smoking cessation consult Nicotine patch if needed --Monitor alcohol withdrawal symptoms; Clear indication of delirium tremors right now. --DVT prophylaxis; SCDs No pharmacological anticoagulation in view of severe anemia Severe GI bleeding Restraints for safety Continue [facility] protocol We will monitor the patient and adjust management as needed Plan of care reviewed with the patient and his nurse Subjective Date of service: 05/27/20 Principal diagnosis: upper gi bleed Interval history: At present patient is in two-point restraints. Remains encephalopathic. Classic appearance of DTs at this time. Moving around minimally responsive tachycardic but alert at times. No new changes overnight. GI input appreciated. Objective - Constitutional Vitals: Vital Signs - 12hr 05/26/20 05/26/20 21:16 23:00 Temperature 98.1 F Pulse Rate 108 H 85 Respiratory 18 Rate Blood Pressure 148/82 Blood Pressure 132/75 [Left] O2 Sat by Pulse 98 Oximetry General appearance: Present: no acute distress, well-nourished - EENT Eyes: PERRL, EOM intact ENT: hearing intact, clear oral mucosa Ears: bilateral: normal - Neck Neck: supple, normal ROM - Respiratory Respiratory effort: normal Respiratory: bilateral: CTA - Breasts Breasts: normal - Cardiovascular Rhythm: regular Heart Sounds: Present: S1 & S2. Absent: gallop, rub Extremities: pulses intact, No edema, normal color, Full ROM - Gastrointestinal General gastrointestinal: Present: soft, non-tender, non-distended, normal bowel sounds - Genitourinary Male genitourinary: normal - Integumentary Integumentary: clear, warm, dry - Musculoskeletal Musculoskeletal: 1, strength equal bilaterally - Neurologic Neurologic: moves all extremities - Psychiatric Psychiatric: memory intact, appropriate mood/affect, intact judgment & insight - Labs CBC & Chem 7: 05/27/20 12:40 05/27/20 12:40 Labs: Abnormal lab results 05/25/20 05/26/20 05/26/20 Range/Units 07:24 08:05 10:24 Lactic Acid 9.70 H* 7.40 H* (0.7-2.0) mmol/L Crossmatch See Detail 05/26/20 05/27/20 Range/Units 13:28 06:06 Lactic Acid 6.50 H* 2.10 H* (0.7-2.0) mmol/L Crossmatch
--- NOTE | 2020-05-27 09:39 | Gastroenterology Progress Note ---
Assessment and Plan - Patient Problems (1) Acute upper GI bleed Current Visit: No Status: Acute Plan to address problem: # Hematemesis - upper GI bleed - /sp EGD showing large distal esophageal varices s/p 3 bands placed - No signs of recurrent bleeding. - H/H down to 7 and s/p 1 unit of PRBC on 05/26/2020 - repeat H/H pending from today. Rec - continue with octreotide IV for total of 72 hrs. - continue with protonix IV. Transition to PO once patient can take PO meds. - ceftriaxone for empiric antibiotics. Antibiotics for 5 days. (2) Cirrhosis Current Visit: Yes Status: Acute Qualifiers: Hepatic cirrhosis type: alcoholic cirrhosis Ascites presence: without ascites Qualified Code(s): K70.30 - Alcoholic cirrhosis of liver without ascites Plan to address problem: # Cirrhosis: 2/2 alcohol. persistent use of alcohol with last use this morning. - Elevated LFTs with Tbili, likely acute on chronic alcoholic hepatitis - monitor CMP and INR. repeat labs pending from today. - on [facility] protocol for withdrawal. Receiving ativan. - continue with propranolol. - start lactulose - limit benzo unless clear signs of withdrawal. The last alcohol was on the day of admission. Subjective Date of service: 05/27/20 Principal diagnosis: upper gi bleed Interval history: Patient remains confused and received ativan yesterday on [facility]IPA protocol. No vomiting. Objective - Constitutional Vitals: Temp Pulse Resp BP Pulse Ox 98.1 F 85 18 132/75 98 05/26/20 23:00 05/26/20 23:00 05/26/20 23:00 05/26/20 23:00 05/26/20 23:00 General appearance: disheveled, other (confused) - Respiratory Respiratory effort: normal - Cardiovascular Rhythm: regular Heart Sounds: Present: S1 & S2 - Gastrointestinal General gastrointestinal: Present: soft, non-tender, non-distended, normal bowel sounds - Integumentary Integumentary: Present: clear, warm - Labs CBC & Chem 7: 05/26/20 05:47 05/26/20 04:00 Labs: Laboratory Results - last 24 hr 05/25/20 05/26/20 05/26/20 07:24 08:05 10:24 Lactic Acid 9.70 H* 7.40 H* Blood Type AB POSITIVE Antibody Screen Negative Crossmatch See Detail 05/26/20 05/27/20 13:28 06:06 Lactic Acid 6.50 H* 2.10 H* Blood Type Antibody Screen Crossmatch
[2020-05-27] MEDS: FOLIC ACID 1 MG TAB PO SCH (10:27)
[2020-05-27] MEDS: NICOTINE 14 MG/24 HR PATCH TD SCH (10:27)
[2020-05-27] MEDS: cefTRIAXone/NS 2 GM/100 ML 2 GM/100 ML BAG IV SCH (10:27)
[2020-05-27] MEDS: THIAMINE 100 MG TAB PO SCH (10:28)
[2020-05-27] MEDS: PROPRANOLOL 10 MG TAB PO SCH ×2 (10:28→20:10)
[2020-05-27] MEDS ORDERED: LACTULOSE ENEMA 1000 ML PR ONE (11:00)
[2020-05-27 12:59] LABS: Hemoglobin 6.6 gm/dl (11.8-15.2); Mean Corpuscular HGB Conc 34 % (32-34); Mean Corpuscular Volume 104 fl (84-94); Red Blood Count 1.86 M/mm3 (3.65-5.03); Red Cell Distribution Width 16.4 % (13.2-15.2)
[2020-05-27 13:14] LABS: INR 1.93 (0.87-1.13)
[2020-05-27 13:19] LABS: Alanine Aminotransferase 124 units/L (7-56); Albumin 2.7 g/dL (3.9-5); BUN/Creatinine Ratio 38; Blood Urea Nitrogen 19 mg/dL (9-20); Calcium 8.1 mg/dL (8.4-10.2); Hemolysis Index 0
[2020-05-27 13:36] LABS: Hematocrit 19.3 % (35.5-45.6); Platelet Count 25 K/mm3 (140-440)
[2020-05-27] MEDS ORDERED: PHYTONADIONE(ADULT ONLY) 10 MG in SODIUM CHLORIDE 0.9% 50 ML IV ONE (15:00)
[2020-05-27] MEDS ORDERED: SODIUM CHLORIDE 0.9% IRR 500 ML BOTTLE IR ONE (15:45)
[2020-05-27] MEDS ORDERED: SODIUM CHLORIDE 0.9% 500 ML IVPB IV ONE (16:11)
[2020-05-27] MEDS ORDERED: SODIUM CHLORIDE 0.9% 500 ML 500 ML IV SCH (17:00)
[2020-05-27] MEDS: LORazepam 2 MG/ML VIAL IV PRN (20:10)
[2020-05-28] MEDS: PROPRANOLOL 10 MG TAB PO SCH ×3 (00:19→23:17)
[2020-05-28] MEDS: OCTREOTIDE 500 MCG in SODIUM CHLORIDE 0.9% 100 ML IV SCH (00:47)
[2020-05-28] MEDS: PANTOPRAZOLE 80 MG in SODIUM CHLORIDE 0.9% 100 ML IV SCH (00:52)
[2020-05-28] MEDS: SODIUM BICARBONATE 50 MEQ in SODIUM CHLORIDE 0.9% 1000 ML 1,000 ML IV SCH (00:53)
[2020-05-28 01:29] LABS: Hematocrit 23.7 % (35.5-45.6); Hemoglobin 8.1 gm/dl (11.8-15.2)
[2020-05-28 08:09] LABS: Hematocrit 24.3 % (35.5-45.6); Hemoglobin 8.4 gm/dl (11.8-15.2)
[2020-05-28] MEDS: FOLIC ACID 1 MG TAB PO SCH (10:29)
[2020-05-28] MEDS: THIAMINE 100 MG TAB PO SCH (10:29)
[2020-05-28] MEDS: NICOTINE 14 MG/24 HR PATCH TD SCH (10:30)
[2020-05-28] MEDS: cefTRIAXone/NS 2 GM/100 ML 2 GM/100 ML BAG IV SCH (10:31)
--- NOTE | 2020-05-28 12:12 | Gastroenterology Progress Note ---
Assessment and Plan Regarding GI bleeding, status post EGD with banding of varices hemoglobin stable Complete total of 72 hours Protonix and octreotide drips Continue 7 days of antibiotics, with ceftriaxone as an inpatient can switch to Cipro oral as an outpatient, for SBP prophylaxis Continue lactulose and Xifaxan for hepatic encephalopathy Regarding discharge planning, once IV drips are completed can begin process of discharge planning ideally patient would be placed and to inpatient alcohol rehab as he is high risk for relapse of alcohol abuse and mortality - Patient Problems (1) Alcoholism Current Visit: Yes Status: Acute (2) Cirrhosis Current Visit: Yes Status: Acute Qualifiers: Hepatic cirrhosis type: alcoholic cirrhosis Ascites presence: without ascites Qualified Code(s): K70.30 - Alcoholic cirrhosis of liver without ascites (3) Upper GI bleed Current Visit: Yes Status: Acute (4) Acute upper GI bleed Current Visit: No Status: Acute Subjective Date of service: 05/28/20 Principal diagnosis: upper gi bleed Interval history: Patient requesting that his restraints be removed He reports no abdominal pain though he is somewhat confused Denies melena. Nurse denies overt GI bleeding today Objective - Constitutional Vitals: Temp Pulse Resp BP Pulse Ox 98.6 F 87 18 156/96 100 05/28/20 05:23 05/28/20 10:29 05/28/20 05:23 05/28/20 10:29 05/28/20 05:23 General appearance: other (Jaundiced) - EENT Eyes: scleral icterus - Neck Neck: supple - Respiratory Respiratory effort: normal - Gastrointestinal General gastrointestinal: Present: soft - Neurologic Neurological: other (Oriented to place and self, confused about time) - Psychiatric Psychiatric: appropriate mood/affect - Labs CBC & Chem 7: 05/28/20 07:55 05/27/20 12:40 Labs: Laboratory Results - last 24 hr 05/25/20 05/27/20 05/27/20 07:24 12:40 12:40 WBC 8.2 RBC 1.86 L Hgb 6.6 L Hct 19.3 L* MCV 104 H MCH 36 H MCHC 34 RDW 16.4 H Plt Count 25 L PT INR Sodium Potassium Chloride Carbon Dioxide Anion Gap BUN Creatinine Estimated GFR BUN/Creatinine Ratio Glucose Lactic Acid 1.50 Calcium Total Bilirubin AST ALT Alkaline Phosphatase Total Protein Albumin Albumin/Globulin Ratio Blood Type AB POSITIVE Antibody Screen Negative Crossmatch See Detail 05/27/20 05/27/20 05/27/20 12:40 12:40 23:36 WBC RBC Hgb 8.1 L Hct 23.7 L MCV MCH MCHC RDW Plt Count PT 22.2 H INR 1.93 H Sodium 151 H Potassium 3.5 L D Chloride 111.8 H Carbon Dioxide 31 H D Anion Gap 12 BUN 19 Creatinine 0.5 L D Estimated GFR > 60 BUN/Creatinine Ratio 38 Glucose 165 H Lactic Acid Calcium 8.1 L Total Bilirubin 9.30 H AST 427 H ALT 124 H Alkaline Phosphatase 73 Total Protein 6.9 Albumin 2.7 L Albumin/Globulin Ratio 0.6 Blood Type Antibody Screen Crossmatch 05/28/20 07:55 WBC RBC Hgb 8.4 L Hct 24.3 L MCV MCH MCHC RDW Plt Count PT INR Sodium Potassium Chloride Carbon Dioxide Anion Gap BUN Creatinine Estimated GFR BUN/Creatinine Ratio Glucose Lactic Acid Calcium Total Bilirubin AST ALT Alkaline Phosphatase Total Protein Albumin Albumin/Globulin Ratio Blood Type Antibody Screen Crossmatch
--- NOTE | 2020-05-28 15:10 | Progress Note ---
Assessment and Plan cute upper GI bleeding/hematemesis; Status post EGD banding of large varices on 05/25/2020 Patient tolerate advancement of clear liquids today. Continue Protonix drip, octreotide, for total of 72 hours. Patient also received 7 days of Rocephin for SBP prophylaxis. No fever at this point. Also continue lactulose and Xifaxan.. --Acute blood loss anemia; Hb dropped from 10.2 to 7.5 now to 6.6 will transfuse an additional unit of blood. Patient transfused yesterday hemoglobin has been 8 point 8 repeat has also been 8. Therefore no active bleeding continue to closely monitor H&H. --History of variceal bleed; With recurrent variceal banding in the past --History of alcoholic liver disease/cirrhosis liver; With elevated transaminases and coagulopathy ---Delirium tremors. Patient is on [facility] protocol continue with this. Patient will benefit from inpatient rehab for alcohol. Once stable for discharge. --High risk of bleeding secondary to cirrhosis liver coagulopathy And severe thrombocytopenia along with esophageal varices. This is secondary to the direct toxic effects of alcohol. Also advised to seek alcohol rehabilitation inpatient rehab and join [facility] support group. Platelets have dropped to 25 will obtain transfusion. --Coagulopathy; Secondary to alcoholic liver disease/cirrhosis Vitamin K, FFP's as needed --Severe thrombocytopenia; cirrhosis liver will transfuse packed red blood cells and platelets. Closely monitored --Lactic acidosis; IV hydration, closely monitor --History of chronic alcohol use; Strongly advised to quit alcohol intake Thiamine folic acid IV fluids --Ongoing tobacco use; smoking cessation consult Nicotine patch if needed --Monitor alcohol withdrawal symptoms; Clear indication of delirium tremors right now. --DVT prophylaxis; SCDs No pharmacological anticoagulation in view of severe anemia Severe GI bleeding Restraints for safety Continue [facility] protocol We will monitor the patient and adjust management as needed Plan of care reviewed with the patient and his nurse Subjective Date of service: 05/28/20 Principal diagnosis: upper gi bleed Interval history: This is the first time patient is up able to speak today. He is alert. Knows where he is in the hospital. DTs are improving.. Objective - Constitutional Vitals: Vital Signs - 12hr 05/28/20 05/28/20 05/28/20 05:19 05:23 10:29 Temperature 98.9 F 98.6 F Pulse Rate 88 87 87 Respiratory 20 18 Rate Blood Pressure 175/100 156/96 156/96 O2 Sat by Pulse 100 100 Oximetry General appearance: Present: no acute distress, well-nourished - EENT Eyes: PERRL, EOM intact ENT: hearing intact, clear oral mucosa Ears: bilateral: normal - Neck Neck: supple, normal ROM - Respiratory Respiratory effort: normal Respiratory: bilateral: CTA - Breasts Breasts: normal - Cardiovascular Rhythm: regular Heart Sounds: Present: S1 & S2. Absent: gallop, rub Extremities: pulses intact, No edema, normal color, Full ROM - Gastrointestinal General gastrointestinal: Present: soft, non-tender, non-distended, normal bowel sounds - Genitourinary Male genitourinary: normal - Integumentary Integumentary: clear, warm, dry - Musculoskeletal Musculoskeletal: 1, strength equal bilaterally - Neurologic Neurologic: moves all extremities - Psychiatric Psychiatric: memory intact, appropriate mood/affect, intact judgment & insight - Labs CBC & Chem 7: 05/28/20 07:55 05/27/20 12:40 Labs: Abnormal lab results 05/25/20 05/27/20 05/28/20 Range/Units 07:24 23:36 07:55 Hgb 8.1 L 8.4 L (11.8-15.2) gm/dl Hct 23.7 L 24.3 L (35.5-45.6) % Crossmatch See Detail
[2020-05-28] MEDS: RIFAXIMIN 550 MG TAB PO SCH (23:17)
[2020-05-28] MEDS: PANTOPRAZOLE 40 MG INJ IV SCH (23:17)
--- NOTE | 2020-05-29 08:19 | Progress Note ---
Assessment and Plan Assessment and plan: Acute upper GI bleeding/hematemesis; Status post EGD banding of large varices on 05/25/2020 Continue Protonix drip, octreotide, for total of 72 hours. Patient also received 7 days of Rocephin for SBP prophylaxis. No fever at this point. Also continue lactulose and Xifaxan.. --Acute blood loss anemia; Hb dropped from 10.2 to 7.5 now to 6.6 will transfuse an additional unit of blood. Patient transfused yesterday hemoglobin has been 8 point 8 repeat has also been 8. Therefore no active bleeding continue to closely monitor H&H. --History of variceal bleed; With recurrent variceal banding in the past --History of alcoholic liver disease/cirrhosis liver; With elevated transaminases and coagulopathy ---Delirium tremors. Patient is on [facility] protocol continue with this. Patient will benefit from inpatient rehab for alcohol. Once stable for discharge. --High risk of bleeding secondary to cirrhosis liver coagulopathy And severe thrombocytopenia along with esophageal varices. This is secondary to the direct toxic effects of alcohol. Also advised to seek alcohol rehabilitation inpatient rehab and join [facility] support group. Platelets have dropped to 25 will obtain transfusion. --Coagulopathy; Secondary to alcoholic liver disease/cirrhosis Vitamin K, FFP's as needed --Severe thrombocytopenia; cirrhosis liver will transfuse packed red blood cells and platelets. Closely monitored --Lactic acidosis; IV hydration, closely monitor --History of chronic alcohol use; Strongly advised to quit alcohol intake Thiamine folic acid IV fluids --Ongoing tobacco use; smoking cessation consult Nicotine patch if needed --Monitor alcohol withdrawal symptoms; Clear indication of delirium tremors right now. --DVT prophylaxis; SCDs No pharmacological anticoagulation in view of severe anemia Severe GI bleeding Restraints for safety Continue [facility] protocol We will monitor the patient and adjust management as needed Plan of care reviewed with the patient and his nurse History Interval history: I have seen and examined the patient at the bedside this morning Patient has no new episodes of GI bleeding Hemoglobin this morning is 7, will recheck H&H If stable will discharge Patient did not have any new episodes of alcohol withdrawal symptoms Alert and awake responding appropriately Hospitalist Physical - Constitutional Vitals: Temp Pulse Resp BP Pulse Ox 99.0 F 85 16 120/74 99 05/29/20 05:00 05/29/20 05:00 05/29/20 05:00 05/29/20 05:00 05/29/20 05:00 General appearance: Present: no acute distress, well-nourished - EENT Eyes: Present: PERRL, EOM intact - Neck Neck: Present: supple, enlarged thyroid - Respiratory Respiratory effort: normal Respiratory: bilateral: diminished, negative: rales, rhonchi, wheezing - Cardiovascular Rhythm: regular Heart Sounds: Present: S1 & S2 - Extremities Extremities: no ischemia, No edema - Abdominal General gastrointestinal: soft, non-tender, non-distended, normal bowel sounds - Integumentary Integumentary: Present: clear, warm - Psychiatric Psychiatric: appropriate mood/affect, cooperative - Neurologic Neurologic: CNII-XII intact, moves all extremities Results - Labs CBC & Chem 7: 05/29/20 07:57 05/29/20 07:57 Labs: Laboratory Last Values WBC 8.2 K/mm3 (4.5-11.0) 05/27/20 12:40 RBC 1.86 M/mm3 (3.65-5.03) L 05/27/20 12:40 Hgb 8.4 gm/dl (11.8-15.2) L 05/28/20 07:55 Hct 24.3 % (35.5-45.6) L 05/28/20 07:55 MCV 104 fl (84-94) H 05/27/20 12:40 MCH 36 pg (28-32) H 05/27/20 12:40 MCHC 34 % (32-34) 05/27/20 12:40 RDW 16.4 % (13.2-15.2) H 05/27/20 12:40 Plt Count 25 K/mm3 (140-440) L 05/27/20 12:40 Lymph % (Auto) 13.5 % (13.4-35.0) 05/26/20 05:47 [place] % (Auto) 6.2 % (0.0-7.3) 05/26/20 05:47 Eos % (Auto) 1.2 % (0.0-4.3) 05/26/20 05:47 Baso % (Auto) 0.4 % (0.0-1.8) 05/26/20 05:47 Lymph # (Auto) 1.4 K/mm3 (1.2-5.4) 05/26/20 05:47 [place] # (Auto) 0.7 K/mm3 (0.0-0.8) 05/26/20 05:47 Eos # (Auto) 0.1 K/mm3 (0.0-0.4) 05/26/20 05:47 Baso # (Auto) 0.0 K/mm3 (0.0-0.1) 05/26/20 05:47 Seg Neutrophils % 78.7 % (40.0-70.0) H 05/26/20 05:47 Seg Neutrophils # 8.3 K/mm3 (1.8-7.7) H 05/26/20 05:47 PT 22.2 Sec. (12.2-14.9) H 05/27/20 12:40 INR 1.93 (0.87-1.13) H 05/27/20 12:40 APTT 32.3 Sec. (24.2-36.6) 05/25/20 07:24 Sodium 151 mmol/L (137-145) H 05/27/20 12:40 Potassium 3.5 mmol/L (3.6-5.0) L D 05/27/20 12:40 Chloride 111.8 mmol/L (98-107) H 05/27/20 12:40 Carbon Dioxide 31 mmol/L (22-30) H D 05/27/20 12:40 Anion Gap 12 mmol/L 05/27/20 12:40 BUN 19 mg/dL (9-20) 05/27/20 12:40 Creatinine 0.5 mg/dL (0.8-1.3) L D 05/27/20 12:40 Estimated GFR > 60 ml/min 05/27/20 12:40 BUN/Creatinine Ratio 38 % 05/27/20 12:40 Glucose 165 mg/dL (75-100) H 05/27/20 12:40 Lactic Acid 1.50 mmol/L (0.7-2.0) 05/27/20 12:40 Calcium 8.1 mg/dL (8.4-10.2) L 05/27/20 12:40 Total Bilirubin 9.30 mg/dL (0.1-1.2) H 05/27/20 12:40 AST 427 units/L (5-40) H 05/27/20 12:40 ALT 124 units/L (7-56) H 05/27/20 12:40 Alkaline Phosphatase 73 units/L (35-129) 05/27/20 12:40 Total Protein 6.9 g/dL (6.3-8.2) 05/27/20 12:40 Albumin 2.7 g/dL (3.9-5) L 05/27/20 12:40 Albumin/Globulin Ratio 0.6 % 05/27/20 12:40 Lipase 21 units/L (13-60) 05/25/20 07:24 Blood Type AB POSITIVE 05/25/20 07:24 Antibody Screen Negative 05/25/20 07:24 Crossmatch See Detail 05/25/20 07:24 Rios/IV: Voiding Method Condom Catheter IV Catheter Type [Right INT / Saline Lock Forearm] IV Catheter Type [Left Upper Mid-line arm] IV Catheter Type [Left Peripheral IV External Jugular] Active Medications - Current Medications Current Medications: Generic Name Dose Route Start Last Admin Trade Name Garciaq PRN Reason Stop Dose Admin Folic Acid 1 mg 05/26/20 10:00 05/28/20 10:29 Folvite PO 1 mg QDAY CHARLIE Administration Sodium Bicarbonate 50 meq/ 1,050 mls @ 75 mls/hr 05/26/20 09:30 05/28/20 00:53 Sodium Chloride IV 75 mls/hr DIRECT CHARLIE Administration Ceftriaxone Sodium 2 gm in 100 mls @ 200 mls/hr 05/26/20 12:00 05/28/20 10:31 Rocephin/Ns 2 Gm/100 Ml IV 05/30/20 10:29 200 mls/hr Q24HR CHARLIE Administration Protocol Lorazepam 2 mg 05/25/20 19:39 05/27/20 20:10 Ativan IV 2 mg Q1HR PRN Administration CIWA-Ar 8-15 Lorazepam 4 mg 05/25/20 19:39 05/26/20 10:15 Ativan IV 4 mg Q1HR PRN Administration CIWA-Ar 16-25 Lorazepam 4 mg 05/25/20 19:39 Ativan IV Q15MIN PRN CIWA-Ar >25 Morphine Sulfate 2 mg 05/25/20 12:53 Morphine IV Q4H PRN Pain, Moderate (4-6) Nicotine 14 mg 05/26/20 11:00 05/28/20 10:30 Habitrol TD 14 mg QDAY CHARLIE Administration Pantoprazole Sodium 40 mg 05/28/20 22:00 05/28/20 23:17 Protonix IV 40 mg BID CHARLIE Administration Propranolol HCl 10 mg 05/26/20 10:00 05/28/20 23:17 Inderal PO 10 mg Q12HR CHARLIE Administration Rifaximin 550 mg 05/28/20 22:00 05/28/20 23:17 Xifaxan PO 550 mg BID CHARLIE Administration Thiamine HCl 100 mg 05/26/20 10:00 05/28/20 10:29 Vitamin B-1 PO 100 mg QDAY CHARLIE Administration
[2020-05-29 08:41] LABS: Basophils # (Auto) 0.1 K/mm3 (0.0-0.1); Basophils % (Auto) 0.7 % (0.0-1.8); Eosinophils # (Auto) 0.3 K/mm3 (0.0-0.4); Eosinophils % (Auto) 3.3 % (0.0-4.3); Hematocrit 20.3 % (35.5-45.6); Lymphocytes # (Auto) 2.3 K/mm3 (1.2-5.4); Lymphocytes % (Auto) 29.2 % (13.4-35.0); Mean Corpuscular HGB Conc 35 % (32-34); Mean Corpuscular Volume 101 fl (84-94); Monocytes # (Auto) 0.9 K/mm3 (0.0-0.8); Monocytes % (Auto) 12.2 % (0.0-7.3); Red Blood Count 2.01 M/mm3 (3.65-5.03); Red Cell Distribution Width 18.3 % (13.2-15.2)
[2020-05-29 08:56] LABS: Platelet Count 35 K/mm3 (140-440)
--- NOTE | 2020-05-29 09:19 | Gastroenterology Progress Note ---
Assessment and Plan Regarding GI bleeding, status post EGD with banding of varices hemoglobin stable until this morning when it dropped, patient did not report overt bleeding Recommend repeating hemoglobin, if repeat is improving then can discharge with close outpatient follow-up, if hemoglobin continues to drop however may need repeat EGD Complete 7 days of antibiotics, with ceftriaxone as an inpatient can switch to Cipro oral as an outpatient, for SBP prophylaxis Continue lactulose and Xifaxan for hepatic encephalopathy ideally patient would be placed and to inpatient alcohol rehab as he is high risk for relapse of alcohol abuse and mortality - Patient Problems (1) Alcoholism Current Visit: Yes Status: Acute (2) Cirrhosis Current Visit: Yes Status: Acute Qualifiers: Hepatic cirrhosis type: alcoholic cirrhosis Ascites presence: without ascites Qualified Code(s): K70.30 - Alcoholic cirrhosis of liver without ascites (3) Upper GI bleed Current Visit: Yes Status: Acute (4) Acute upper GI bleed Current Visit: No Status: Acute Subjective Date of service: 05/29/20 Principal diagnosis: upper gi bleed Interval history: Patient sleeping comfortably in bed. When I woke him up he said he feels fine and wants to go home Of note repeat hemoglobin lower today Objective - Constitutional Vitals: Temp Pulse Resp BP Pulse Ox 99.0 F 85 16 120/74 99 05/29/20 05:00 05/29/20 05:00 05/29/20 05:00 05/29/20 05:00 05/29/20 05:00 General appearance: no acute distress - EENT Eyes: scleral icterus ENT: hearing intact - Respiratory Respiratory effort: normal - Gastrointestinal General gastrointestinal: Present: soft - Labs CBC & Chem 7: 05/29/20 07:57 05/27/20 12:40 Labs: Laboratory Results - last 24 hr 05/29/20 07:57 WBC 7.7 RBC 2.01 L Hgb 7.0 L Hct 20.3 L MCV 101 H MCH 35 H MCHC 35 H RDW 18.3 H Plt Count 35 L Lymph % (Auto) 29.2 [place] % (Auto) 12.2 H Eos % (Auto) 3.3 Baso % (Auto) 0.7 Lymph # (Auto) 2.3 [place] # (Auto) 0.9 H Eos # (Auto) 0.3 Baso # (Auto) 0.1 Seg Neutrophils % 54.6 Seg Neutrophils # 4.2
[2020-05-29 09:37] LABS: Blood Urea Nitrogen 8 mg/dL (9-20); Calcium 7.5 mg/dL (8.4-10.2); Hemolysis Index 3
[2020-05-29 09:39] LABS: BUN/Creatinine Ratio 20
[2020-05-29] MEDS: FOLIC ACID 1 MG TAB PO SCH (10:41)
[2020-05-29] MEDS: NICOTINE 14 MG/24 HR PATCH TD SCH (10:41)
[2020-05-29] MEDS: RIFAXIMIN 550 MG TAB PO SCH ×2 (10:41→23:00)
[2020-05-29] MEDS: cefTRIAXone/NS 2 GM/100 ML 2 GM/100 ML BAG IV SCH (10:42)
[2020-05-29] MEDS: PROPRANOLOL 10 MG TAB PO SCH ×2 (10:42→22:18)
[2020-05-29] MEDS: PANTOPRAZOLE 40 MG INJ IV SCH ×2 (10:43→23:00)
[2020-05-29] MEDS: POTASSIUM CHLORIDE ER 20 MEQ TAB PO SCH ×2 (12:00→19:12)
[2020-05-29] MEDS ORDERED: MAGNESIUM SULFATE 4 GM/100 ML BAG IV ONE (14:00)
[2020-05-29 14:07] LABS: Hematocrit 22.1 % (35.5-45.6); Hemoglobin 7.6 gm/dl (11.8-15.2)
--- NOTE | 2020-05-29 14:38 | Discharge Summary ---
Providers - Providers Date of Admission: 05/25/20 22:53 Date of discharge: 05/30/20 Attending physician: LAUREL MENDEZ 05/25/20 09:04 Midline [Consult to PICC Line RN] [CONS] Stat Reason For Exam: needs iv access Type Line:: Midline Primary care physician: FRONT COUNTER CLERK Hospitalization Condition: Stable Procedures: s/p EGD banding ligation of 3 large varices on 05/25/2020 Hospital course: 29-year-old male patient with significant past medical history of chronic alcohol use, cirrhosis liver, alcoholic liver disease, history of esophageal varices with banding in the past, blood loss anemia requiring multiple transfusions in the past was admitted through the emergency room with hematemesis. Patient gives history of chronic alcohol use, drank alcohol/vodka this morning. Patient is drowsy but able to give proper history Initial evaluation in the emergency room is consistent with mild drop in H&H, transaminitis, coagulopathy, and sinus tachycardia. Acute upper GI bleeding/hematemesis; Status post EGD banding ligation of 3 large varices on 05/25/2020 Continue Protonix drip, octreotide, for total of 72 hours. Patient also received 7 days of Rocephin for SBP prophylaxis. No fever at this point. Also continue lactulose and Xifaxan.. --Acute blood loss anemia; Hb dropped from 10.2 to 7.5 now to 6.6 will transfuse an additional unit of blood. Patient transfused yesterday hemoglobin has been 8 point 8 repeat has also been 8. Therefore no active bleeding continue to closely monitor H&H. --History of variceal bleed; With recurrent variceal banding in the past --History of alcoholic liver disease/cirrhosis liver; With elevated transaminases and coagulopathy ---Delirium tremors. Patient is on CIWA protocol continue with this. Patient will benefit from inpatient rehab for alcohol. Once stable for discharge. --High risk of bleeding secondary to cirrhosis liver coagulopathy And severe thrombocytopenia along with esophageal varices. This is secondary to the direct toxic effects of alcohol. Also advised to seek alcohol rehabilitation inpatient rehab and join [facility] support group. Platelets have dropped to 25 will obtain transfusion. --Coagulopathy; Secondary to alcoholic liver disease/cirrhosis Vitamin K, FFP's as needed --Severe thrombocytopenia; cirrhosis liver will transfuse packed red blood cells and platelets. Closely monitored --Lactic acidosis; IV hydration, closely monitor --History of chronic alcohol use; Strongly advised to quit alcohol intake Thiamine folic acid IV fluids --Ongoing tobacco use; smoking cessation consult Nicotine patch if needed --Monitor alcohol withdrawal symptoms; Clear indication of delirium tremors right now. --DVT prophylaxis; SCDs No pharmacological anticoagulation in view of severe anemia Severe GI bleeding Restraints for safety Continue CIWA protocol We will monitor the patient and adjust management as needed Plan of care reviewed with the patient and his nurse Disposition: [id number] TO HOME OR SELFCARE Exam - Constitutional Vitals: Temp Pulse Resp BP Pulse Ox 99.0 F 85 16 120/74 99 05/29/20 05:00 05/29/20 10:42 05/29/20 05:00 05/29/20 10:42 05/29/20 05:00 Plan Activity: advance as tolerated, fall precautions Diet: other (Soft diet advance as tolerated) Additional Instructions: Strongly advised to quit alcohol intake. Advised to go for alcohol detox[voluntary] program. Strongly advised smoking cessation, advised nicotine patch as needed. Fall precautions. Aspiration precautions. If you notice any bleeding contact MD or go to emergency room. Advised not to drive under the influence of alcohol or operate heavy machinery Follow up with: PRIMARY CAREMD [Primary Care Provider] - 3-5 Days MIN,RAINA KIM MD [Staff Physician] - 7 Days Forms: Accompanied Note Prescriptions: Ciprofloxacin HCl [Ciprofloxacin TAB] 500 mg PO Q12HR #4 tab Folic Acid [Folvite] 1 mg PO QDAY #30 tablet propranoloL [Inderal] 10 mg PO Q12HR #60 tablet Pantoprazole [Protonix TAB] 40 mg PO BID #60 tablet Thiamine [Vitamin B-1] 100 mg PO QDAY #30 tablet Rifaximin [Xifaxan] 550 mg PO BID #60 tablet
[2020-05-29] MEDS: THIAMINE 100 MG TAB PO SCH (19:16)
[2020-05-29] MEDS ORDERED: POTASSIUM CHLORIDE ER 20 MEQ TAB PO SCH (20:00)
[2020-05-30] MEDS ORDERED: MELATONIN 5 MG TAB PO ONE (01:07)
[2020-05-30 05:28] VITALS: BP 113/52
[2020-05-30 09:00] LABS: Hematocrit 27.5 % (35.5-45.6)
[2020-05-30] MEDS: RIFAXIMIN 550 MG TAB PO SCH (11:01)
[2020-05-30] MEDS: PANTOPRAZOLE 40 MG INJ IV SCH (11:01)
[2020-05-30] MEDS: NICOTINE 14 MG/24 HR PATCH TD SCH (11:01)
[2020-05-30] MEDS: FOLIC ACID 1 MG TAB PO SCH (11:02)
[2020-05-30] MEDS: cefTRIAXone/NS 2 GM/100 ML 2 GM/100 ML BAG IV SCH (11:02)
[2020-05-30] MEDS: THIAMINE 100 MG TAB PO SCH (11:02)
== END 2020-05-30 14:00 | disposition home or self-care (01) | DRG 811 ==
LOC: ED 06:28 → 3A 22:53
PROVIDERS: ADMIT Internal Medicine Geriatric Medicine; ATTEND Internal Medicine
PROC: 06L38CZ Occlusion of Esophageal Vein with Extraluminal Device, Via Natural or Artificial Opening Endoscopic (ICD-10-PCS; 2020-05-25)
PROC: 30233N1 Transfusion of Nonautologous Red Blood Cells into Peripheral Vein, Percutaneous Approach (ICD-10-PCS; principal; 2020-05-27)
DX: D62 Acute posthemorrhagic anemia (principal); I85.01 Esophageal varices with bleeding; K92.2 Gastrointestinal hemorrhage, unspecified; D68.9 Coagulation defect, unspecified; E87.2 Acidosis; K70.30 Alcoholic cirrhosis of liver without ascites; K20.90 Esophagitis, unspecified without bleeding; K31.9 Disease of stomach and duodenum, unspecified; D69.6 Thrombocytopenia, unspecified; F10.20 Alcohol dependence, uncomplicated; Y90.9 Presence of alcohol in blood, level not specified; Z71.6 Tobacco abuse counseling; Z71.41 Alcohol abuse counseling and surveillance of alcoholic
CPT/HCPCS: 36415; 71045; 74177; 80048; 80053; 82140; 83690; 83735; 84132; 85014; 85018; 85025; 85027; 85610; 85730; 86850; 86900; 86901; 86920; 93005; 96365; 96367; 96375; G0378; C9113; J0696; J2060; J2354; J2405; J2704; J3010; J3411; J3430; J3475; J7030; J7040; P9016; Q9967